=== PATIENT | male | born 1955 | race Caucasian/White ===

== ENCOUNTER → 2018-12-30 08:05 | Outpatient (POV) | payer MEDICARE, OTHER, SELFPAY | PROVIDERS: Visit Provider Dermatology | DX: Z00.00 Encounter for general adult medical examination without abnormal findings (principal) ==

== ENCOUNTER → 2019-01-20 08:54 | Outpatient (POV) | payer MEDICARE, OTHER, SELFPAY | PROVIDERS: Visit Provider Dermatology | DX: Z00.00 Encounter for general adult medical examination without abnormal findings (principal) ==

== ENCOUNTER → 2019-01-21 08:43 | Outpatient (CLI) | payer OTHER, SELFPAY ==
--- NOTE | 2019-01-21 08:48 | US_ITS ---
US aorta HISTORY: Screening for aortic aneurysm ITS.REASON: AAA COMPARISON: FINDINGS: No evidence of aortic aneurysm. The proximal common iliacs are unremarkable. IMPRESSION: No evidence of abdominal aortic aneurysm
== END ==
PROVIDERS: PCP Family Medicine; Visit Provider Family Medicine
DX: Z13.6 Encounter for screening for cardiovascular disorders (principal); Z87.891 Personal history of nicotine dependence
CPT/HCPCS: 76770

== ENCOUNTER → 2019-01-27 08:46 | Outpatient (POV) | payer MEDICARE, OTHER, SELFPAY | PROVIDERS: Visit Provider Dermatology | DX: Z00.00 Encounter for general adult medical examination without abnormal findings (principal) ==

== ENCOUNTER 2019-06-26 12:12 | Observation (INO) ==
--- NOTE | 2019-06-26 12:41 | Emergency Department Note ---
ED Disposition Clinical Impression: Encephalopathy Hypertension Qualifiers: Hypertension type: unspecified Qualified Code(s): I10 - Essential (primary) hypertension Disposition: Admitted as Observation Condition on Discharge: Good Instructions: DI for Altered Mental Status Referrals: Sabas Kay MD [Primary Care Provider] - - Critical Care Critical Care Time: No Attestation: On , the high probability of a clinically significant, sudden or life threatening deterioration of the following system(s) required my full and direct attention, intervention and personal management. The time I documented below is in addition to time spent performing reported procedures but includes the following listed in this critical care notation. Medical Decision Making - Medical Records Medical records reviewed: Yes: I reviewed the patient's medical records. - Pérez Inquiry Pt receiving controlled substance: No Vital Signs: 06/26/19 12:25 06/26/19 12:56 06/26/19 12:57 Temperature 97.8 F Temperature Source Oral Pulse Rate [Right Brachial] 87 64 Respiratory Rate 18 20 Blood Pressure 174/118 H Blood Pressure [Right Arm] 199/101 H 168/95 H Blood Pressure Mean [Right Arm] 133 119 Blood Pressure Source [Right Arm] Automatic Cuff Automatic Cuff Blood Pressure Position [Right Arm] Sitting Supine 02 Sat by Pulse Oximetry 100 100 Oxygen Delivery Method Room Air Room Air 06/26/19 13:42 06/26/19 14:09 06/26/19 14:37 Temperature Temperature Source Pulse Rate [Right Brachial] 69 66 61 Respiratory Rate Blood Pressure 154/98 H Blood Pressure [Right Arm] 153/91 H 144/83 H 131/85 Blood Pressure Mean [Right Arm] 111 103 100 Blood Pressure Source [Right Arm] Automatic Cuff Automatic Cuff Blood Pressure Position [Right Arm] Sitting Sitting 02 Sat by Pulse Oximetry 99 98 98 Oxygen Delivery Method - Lab Data Lab results reviewed: Yes: I reviewed the patient's lab results. Lab Results 06/26/19 12:30: WBC 7.1, RBC 5.28, Hgb 16.7, Hct 51.5, MCV 97.5 H, MCH 31.6 H, MCHC 32.4, RDW 14.0, Plt Count 219, MPV 8.6, Neut % (Auto) 50.2, Lymph % (Auto) 35.2, [place] % (Auto) 8.2, Eos % (Auto) 5.7, Baso % (Auto) 0.6, Neut # (Auto) 3.5, Lymph # (Auto) 2.5, [place] # (Auto) 0.6, Eos # (Auto) 0.4, Baso # (Auto) 0.0 06/26/19 12:30: Sodium 139, Potassium 3.9, Chloride 101, Carbon Dioxide 27, Anion Gap 14.9, BUN 11, Creatinine 0.73, Estimated Creat Clear 83, Estimated GFR 108, Est GFR ( Amer) 130, Glucose 104, Calcium 10.0, Total Bilirubin 0.6, AST 43 H, ALT 51, Alkaline Phosphatase 60, Troponin I < 0.02, Total Protein 7.6, Albumin 4.2, Globulin 3.4 H, Albumin/Globulin Ratio 1.2 Result diagrams: 06/26/19 12:30 06/26/19 12:30 Orders (Tests/Meds): ED MEDICATIONS Discontinued Medications Generic Name Dose Route Start Last Admin Trade Name Freq PRN Reason Stop Dose Admin Acetaminophen 1,000 mg 06/26/19 12:37 06/26/19 12:56 Tylenol 500mg Tablet PO 06/26/19 12:38 1,000 mg ONCE ONE Administration Labetalol HCl 10 mg 06/26/19 12:38 06/26/19 12:56 Labetalol Hcl 20mg/4ml Syringe IV 06/26/19 12:39 10 mg ONCE ONE Administration Labetalol HCl 10 mg 06/26/19 13:10 06/26/19 13:42 Labetalol Hcl 20mg/4ml Syringe IV 06/26/19 13:11 10 mg ONCE ONE Administration Ondansetron HCl 4 mg 06/26/19 12:55 06/26/19 12:56 Zofran 4mg/2ml Vial IV 06/26/19 12:56 4 mg ONCE ONE Administration ORDERS Category Date Time Status Chest XR -- portable [XR chest portable] Stat Exams 06/26/19 12:20 Taken - CT Data CT Scan: Head Time Received: 14:[address] Reviewed: Yes: I have viewed the radiologist's interpretation Preliminary Findings: Normal/NAD - ECG Data Tracing #2 I reviewed this ECG and interpreted as documented below: Normal Sinus Rhythm: Yes (no stemi) Medical Decision Narrative: admit d/w Dr Kay for hypertensive encephalopathy General Adult HPI - General Chief complaint: Altered Mental Status Stated complaint: memory fading b/p spiking Time Seen by Provider: 06/26/19 12:38 Mode of Arrival: Carried Limitations: No Limitations Description of Symptoms (Recalled from ER Triage Doc. by RN): PT DESCRIBES SUDDEN ONSET OF SHELTON AND MEMORY LOSS. WHEN DISCUSSING, PT WAS UNABLE TO TELL WHAT YEAR IT WAS, BUT IDENTIFIED LOCATION, SELF, AND DAY OF THE WEEK WITH EASE. VERY ANXIOUS AND NERVOUS. BP ELEVATED. AT BEDSIDE AND IS AGITATED AND ANXIOUS AND APPEARS TO BE ESCALATING THE PATIENT'S ANXIETY AT CURRENT. - History of Present Illness HPI narrative: 2hr hx elevated blood pressure and headache and forgetful, no injury, +nausea, no fever, no visual disturbance - Related Data Home Medications Medication Instructions Recorded Confirmed No Known Home Medications 11/11/18 12/12/18 Allergies Allergy/AdvReac Type Severity Reaction Status Date / Time prochlorperazine Allergy Verified 12/12/18 11:58 [From Compazine] [facility] History - Hepatitis A Screen Drug use history?: No High risk sexual behaviors?: No History of sexually transmitted infection?: No Currently employed?: No Childcare worker?: No Do you have indoor plumbing?: Yes Do you have electricity?: Yes Attestation statement:: This patient has been screened for Hepatitis A risk factors. Medical History: Denies:: Diabetes Mellitus Type 1, Diabetes Mellitus Type 2, Internal Pacemaker, Lung Disease, Seizures Other Surgeries: No: Pacemaker ROS Obtained: Yes Systems reviewed as appropriate & no additional complaints - Constitutional Constitutional: Denies fever(s) - Eyes Eyes: Denies change in vision - ENT Ears, Nose, Mouth, and Throat: Reports headache(s) - Cardiovascular Cardiovascular: Denies chest pain - Respiratory Respiratory: No dyspnea - Gastrointestinal Gastrointestingal: Denies: vomiting - Musculoskeletal Musculoskeletal: Denies neck pain - Integumentary/Breasts Skin/Breast: Denies rash - Neurologic Neurologic: Reports confusion, Denies focal weakness Physical Exam - General General appearance: alert, in no apparent distress - Head Head exam: normocephalic - Eye Eye exam: Present: PERRL, EOMI - ENT ENT exam: Present: mucous membranes moist - Neck Neck exam: Present: normal inspection - Chest Chest inspection: Present: normal inspection - Respiratory Respiratory exam: Present: normal lung sounds bilaterally - Cardiovascular Cardiovascular exam: Present: regular rate, normal rhythm - Abdominal Exam Abdominal exam: Present: soft. Absent: tenderness - Extremities Exam Extremities exam: Present: full ROM - Back Exam Back exam: Absent: vertebral tenderness - Neurological Exam Neurological exam: Present: alert, oriented X3 - Psychiatric Psychiatric exam: Present: normal affect, normal mood - Skin Skin exam: Present: warm, dry
[2019-06-26 12:53] LABS: Basophils % 0.6 % (0.1-2.0); Eosinophils # 0.4 K/mm3 (0.0-0.4); Eosinophils % 5.7 % (0.1-12.0); Hematocrit 51.5 % (42.0-52.0); Hemoglobin 16.7 g/dL (14.1-18.0); Lymphocytes # 2.5 K/mm3 (0.7-4.5); Lymphocytes % 35.2 % (10-50); Mean Corpuscular HGB Conc 32.4 g/dL (31.8-35.4); Mean Corpuscular Volume 97.5 fl (80-94); Mean Platelet Volume 8.6 fl (7.4-10.4); Monocytes # 0.6 K/mm3 (0.1-1.0); Monocytes % 8.2 % (1.7-9.3); Neutrophils # 3.5 K/mm3 (1.8-7.8); Neutrophils % 50.2 % (37.0-80.0); Platelet Count 219 K/mm3 (142-424); Red Blood Count 5.28 M/mm3 (4.60-6.20); White Blood Count 7.1 K/mm3 (4.8-10.8)
[2019-06-26 13:17] LABS: Alanine Aminotransferase 51 U/L (12-78); Albumin Level 4.2 gm/dL (3.4-5.0); Albumin/Globulin Ratio 1.2 (1.1-1.8); Alkaline Phosphatase 60 U/L (46-116); Anion Gap 14.9 mEq/L (5-15); Aspartate Amino Transferase 43 U/L (15-37); Bilirubin,Total 0.6 mg/dL (0.2-1.0); Blood Urea Nitrogen 11 mg/dL (7-18); Carbon Dioxide 27 mmol/L (21.0-32.0); Chloride 101 mmol/L (98-107); Globulin 3.4 gm/dl (1.3-3.2); Glucose 104 mg/dL (74-106); Sodium 139 mmol/L (136-145); Total Protein,Serum 7.6 gm/dL (6.4-8.2)
--- NOTE | 2019-06-26 16:50 | History & Physical Report ---
*Admission Date: 06/26/19 *Chief complaint: Confusion *History of present illness: 64-year-old male with no significant medical history presented to the emergency department after onset of memory loss at home. Patient awoke this morning in his normal state of health. He was preparing for work and was logging on his computer when he noticed he had trouble remembering his password. He decided to change activities and went on and showered. After getting out of the shower and speaking with his she noticed he did not seem himself and he had trouble remembering what year it was. He also endorsed a headache at the base of his skull and his also believes he had some difficulty swallowing. Upon checking his blood pressure at home his systolic was in the 220s and decision was made to come to the emergency department. In the emergency department patient's blood pressure was elevated over 200 systolic. Patient continued to have difficulty recalling the year but was otherwise oriented. He was given 2 doses of labetalol 10 mg IV and blood pressure responded appropriately. He continued to endorse "feeling off". Patient was admitted for observation. [facility] History I have reviewed the patient's past medical history: Yes Medical History: Denies:: Cancer, Diabetes Mellitus Type 1, Diabetes Mellitus Type 2, Internal Pacemaker, Lung Disease, MRSA, Seizures *Have you ever received a pneumonia vaccine?: No *Have you received a flu vaccine this season?: No Other Medical History: Reports: Arthritis Other Surgeries: No: Pacemaker Amputation: No Fractures: No - *Social History Educational Level: Attended College Smoking Status: Former smoker Smoking End Date: 09/30/1989 Alcohol Intake: never Substance Use Type: marijuana Last Used Substance: days (ago) *Occupational Status:: employed Housing: house Household Members: spouse *Travel in the last 8 weeks: None Family Hx:: Cancer, Coronary Artery Disease, Diabetes, Heart Attack, Hyperlipidemia, Hypertension, Substance abuse Review of Systems - Review of Systems Review of systems:: pertinent systems reviewed and negative unless documented below - Eyes Denies blind spots, Denies blurry vision, Denies change in vision - ENT Denies abnormal hearing - *Cardiovascular Denies chest pain - *Respiratory Denies cough, Denies shortness of breath - *Musculoskeletal Denies abnormal walking - *Neurologic Reports confusion, Reports headache(s), Reports memory loss, Reports tingling/numbness/burning sensations, Reports radiating pain, Denies abnormal walking, Denies abnormal hearing, Denies abnormal movements, Denies abnormal speech, Denies unsteadiness, Denies localized weakness, Denies lack of coordination, Denies loss of vision, Denies numbness, Denies sensory deficit, Denies fainting, Denies tremor(s), Denies weakness Meds Home Medications Medication Instructions Recorded Confirmed Type Polyethylene Glycol 3350 [Miralax 17 gm PO DAILY 06/26/19 06/26/19 History 17gm Packet] Allergies Allergy/AdvReac Type Severity Reaction Status Date / Time prochlorperazine Allergy Verified 12/12/18 11:58 [From Compazine] Exam Vital signs and Labs for Last 24 Hours: Temp Pulse Resp BP Pulse Ox 98.2 F 62 22 137/83 97 06/26/19 15:20 06/26/19 15:20 06/26/19 15:20 06/26/19 15:20 06/26/19 15:17 Laboratory Results - last 24 hr 06/26/19 12:30: WBC 7.1, RBC 5.28, Hgb 16.7, Hct 51.5, MCV 97.5 H, MCH 31.6 H, MCHC 32.4, RDW 14.0, Plt Count 219, MPV 8.6, Neut % (Auto) 50.2, Lymph % (Auto) 35.2, [place] % (Auto) 8.2, Eos % (Auto) 5.7, Baso % (Auto) 0.6, Neut # (Auto) 3.5, Lymph # (Auto) 2.5, [place] # (Auto) 0.6, Eos # (Auto) 0.4, Baso # (Auto) 0.0 06/26/19 12:30: Sodium 139, Potassium 3.9, Chloride 101, Carbon Dioxide 27, Anion Gap 14.9, BUN 11, Creatinine 0.73, Estimated Creat Clear 83, Estimated GFR 108, Est GFR ( Amer) 130, Glucose 104, Calcium 10.0, Total Bilirubin 0.6, AST 43 H, ALT 51, Alkaline Phosphatase 60, Troponin I < 0.02, Total Protein 7.6, Albumin 4.2, Globulin 3.4 H, Albumin/Globulin Ratio 1.2 I & O for Last 24 hours: Intake & Output 06/24/19 06/25/19 06/26/19 06/27/19 11:59 11:59 11:59 11:59 Intake Total 1000 / 1000 Balance 1000 / 1000 Weight 163 lb 3 oz - Constitutional no acute distress - *Routine HEENT Exam Head: Present: normocephalic Eye: Present: EOMI, normal accommodation ENT: Present: mucous membranes moist - *Routine Neck Exam Present: supple. Absent: carotid bruit - *Routine Respiratory Exam Present: CTA bilaterally. Absent: rales, respiratory distress, wheezes - *Routine Cardiovascular Exam Present: RRR, Normal S1, Normal S2. Absent: murmur - *Routine Neurological Exam Present: moving all extremities, normal tone, vision grossly intact, hearing grossly intact, normal speech. Absent: sensory deficit, motor deficit, altered mental status, hemineglect, fasciculations, facial asymmetry, tremors, asterixis Symmetric upper and lower extremity strength in all muscle groups - Detailed Neurological Exam Cranial nerves: Normal CN III, Normal CN IV, Normal CN V, Normal CN , Normal CN VII, Normal CN VIII, Normal CN IX, Normal CN X, Normal CN XI, Normal CN XII Speech: Absent: expressive aphasia, receptive aphasia, total aphasia, slurred, garbled, stutter, speech apraxia Neuro motor strength exam: RUE 5/5 Cerebellar function: Normal Romberg Sensory: Normal position sense DTR: 1+: brachioradialis (L), brachioradialis (R), 2+: achilles tendon (L), achilles tendon (R), biceps (L), biceps (R), patellar (L), patellar (R) Assessment and Plan (1) Hypertensive encephalopathy syndrome Current visit: Yes Status: Acute Category: Medical Code(s): I67.4 - Hypertensive encephalopathy - Assessment and plan all Dx Assessment and Plan for all problems:: Pressure has improved. Start lisinopril 10 mg twice daily. Urinalysis will be ordered to complete work-up. Patient will be observed overnight. Clonidine has been ordered as needed for systolic blood pressure greater than 170.
[2019-06-27 01:22] LABS: Microscopic, Urine URINE MICROSCOPIC (MICROSCOPIC)
[2019-06-27 01:57] LABS: Appearance,Urine CLEAR (Clear); Bilirubin,Urine Negative (Negative); Blood, Urine Negative (Negative); Color,Urine YELLOW (Yellow); Glucose,Urine (UA) Negative (Negative); Ketones,Urine Negative (Negative); Leukocyte Esterase,Urine Negative (Negative); PH,Urine 6.5 (5.0-8.5); Protein,Urine Negative (Negative); Specific Gravity, Urine 1.015 (1.005-1.030)
[2019-06-27 01:58] LABS: Bacteria,Urine Trace /lpf; Squamous Epithelial Cell,Urine Occasional #/hpf (0-5); WBC,Urine Occasional #/hpf (0-3)
--- NOTE | 2019-06-27 08:02 | Discharge Summary ---
General - General Admission date:: 06/26/19 Discharge date: 06/27/19 HPI HPI: 64-year-old male with no significant medical history presented to the emergency department after onset of memory loss at home. Patient awoke this morning in his normal state of health. He was preparing for work and was logging on his computer when he noticed he had trouble remembering his password. He decided to change activities and went on and showered. After getting out of the shower and speaking with his she noticed he did not seem himself and he had trouble remembering what year it was. He also endorsed a headache at the base of his skull and his also believes he had some difficulty swallowing. Upon checking his blood pressure at home his systolic was in the 220s and decision was made to come to the emergency department. In the emergency department patient's blood pressure was elevated over 200 systolic. Patient continued to have difficulty recalling the year but was otherwise oriented. He was given 2 doses of labetalol 10 mg IV and blood pressure responded appropriately. He continued to endorse "feeling off". Patient was admitted for observation. Hospital Course Hospital Course: Patient was admitted for observation. Patient's blood pressure never sherwin above 150 after admission. He was started on lisinopril 10 mg twice daily. His neurologic exam was normal and remained that way. On the patient was discharged home. He will begin lisinopril 10 mg twice daily. He will follow-up in the office on July 03 at 8 AM. Objective Vital signs: Temp Pulse Resp BP Pulse Ox 98 F 60 18 150/88 H 100 06/27/19 00:00 06/27/19 00:00 06/27/19 00:00 06/27/19 00:00 06/27/19 00:00 no acute distress - *Routine Neurological Exam Present: alert, oriented X3, CN II-XII intact, sensory deficit, motor deficit, normal reflexes, moving all extremities, normal tone Results Labs on day of discharge: Labs from last 24 hours 06/26/19 06/26/19 06/26/19 12:30 12:30 01:06 WBC 7.1 RBC 5.28 Hgb 16.7 Hct 51.5 MCV 97.5 H MCH 31.6 H MCHC 32.4 RDW 14.0 Plt Count 219 MPV 8.6 Neut % (Auto) 50.2 Lymph % (Auto) 35.2 Bertie % (Auto) 8.2 Eos % (Auto) 5.7 Baso % (Auto) 0.6 Neut # (Auto) 3.5 Lymph # (Auto) 2.5 Bertie # (Auto) 0.6 Eos # (Auto) 0.4 Baso # (Auto) 0.0 Sodium 139 Potassium 3.9 Chloride 101 Carbon Dioxide 27 Anion Gap 14.9 BUN 11 Creatinine 0.73 Estimated Creat Clear 83 Estimated GFR 108 Est GFR ( Amer) 130 Glucose 104 Calcium 10.0 Total Bilirubin 0.6 AST 43 H ALT 51 Alkaline Phosphatase 60 Troponin I < 0.02 Total Protein 7.6 Albumin 4.2 Globulin 3.4 H Albumin/Globulin Ratio 1.2 Urine Color Yellow Urine Appearance Clear Urine pH 6.5 Ur Specific [place] 1.015 Urine Protein Negative Urine Glucose (UA) Negative Urine Ketones Negative Urine Blood Negative Urine Nitrate Negative Urine Bilirubin Negative Urine Urobilinogen 1.0 Ur Leukocyte Esterase Negative Urine WBC Occasional Ur Squamous Epith Cells Occasional Urine Bacteria Trace DS: Diagnosis - Discharge Diagnosis (1) Hypertensive encephalopathy syndrome Status: Acute Discharge Plan - Patient Discharge Instructions ACTIVITY: Continue current activity DIET: continue same diet Patient Instructions: High Blood Pressure, Encephalopathy, DI for Encephalopathy - Follow up Plan Follow up with: Sabas Kay MD [Primary Care Provider] - Disposition: Home, Self-[facility] Medications: Home Medications Medication Instructions Recorded Confirmed Type Polyethylene Glycol 3350 [Miralax 17 gm PO DAILY 06/26/19 06/26/19 History 17gm Packet] Lisinopril [Lisinopril 10mg Tab] 10 mg PO BID #60 tab 06/27/19 Rx Prescriptions/Medication Reconciliation: New Lisinopril [Lisinopril 10mg Tab] 10 mg PO BID #60 tab Continued Polyethylene Glycol 3350 [Miralax 17gm Packet] 17 gm PO DAILY - Problem Reconciliation Problems Reviewed?: Yes
--- NOTE | 2019-06-28 18:06 | Electrocardiograph Report ---
APPROVED REPORT Exam: Resting ECG HR:67 bpm ECG Measurements Heart Rate 67 AXES TX 164 P 75 QRSd 108 QRS 62 QT 394 T68 QTc 416 <Conclusion> Normal sinus rhythm Incomplete RBBB Otherwise a Normal EKG Electronically signed by : Hadley Clarke, 06/28/2019 18:05:48
== END 2019-06-27 09:55 | disposition home or self-care (01) ==
LOC: ER 12:12 → 2ND 12:12
PROVIDERS: ADMIT Family Medicine; ATTEND Family Medicine
DX: I67.4 Hypertensive encephalopathy
CPT/HCPCS: 70450; 71010; 71045; 80053; 81001; 84484; 85025; 93005; 96374; 99284; G0378; J2405

== ENCOUNTER → 2019-10-09 14:37 | Outpatient (CLI) | payer OTHER, SELFPAY ==
--- NOTE | 2019-10-09 14:44 | XR_ITS ---
PROCEDURE: XR ANKLE WT BEARING RT MIN 3V CLINICAL INDICATION: foot pain COMPARISON: No exams were available for comparison FINDINGS: There are mild osteoarthritic changes of the right ankle at the talotibial region. There is generalized vascular calcification. No fracture or dislocation. No lytic or blastic change. IMPRESSION: Mild osteoarthritis Dictated by: Elmer Patino MD 10/09/2019 15:09 Electronically signed by Elmer Patino MD in [place] 10/09/2019 15:09
--- NOTE | 2019-10-09 14:44 | XR_ITS ---
PROCEDURE: XR FOOT WT BEARING RT 3V CLINICAL INDICATION: foot pain COMPARISON: XR FOOT WT BEARING LT 3V from 10/09/2019 FINDINGS: There are minimal osteoarthritic changes of the 1st metatarsophalangeal joint, talonavicular joint, and navicular cuneiform joint with borderline pes planus and a small accessory ossicle at the dorsal talonavicular region. There is a small calcaneal spur and there is calcification noted at the distal aspect of the Achilles tendon along with vascular calcifications.. There may be an extra ossicle or loose bony fragment as noted on the oblique view between the navicular and cuboid. IMPRESSION: Mild degenerative changes with possible loose body between the cuboid and navicular. CT may confirm Dictated by: Elmer Patino MD 10/09/2019 15:13 Electronically signed by Elmer Patino MD in [place] 10/09/2019 15:13
--- NOTE | 2019-10-09 14:44 | XR_ITS ---
PROCEDURE: XR FOOT WT BEARING LT 3V CLINICAL INDICATION: foot pain COMPARISON: No exams were available for comparison FINDINGS: No fracture or dislocation. No lytic or blastic change. There is normal mineralization. The joint spaces are well-preserved. No significant degenerative/arthritic changes. No erosive changes evident. Other findings: borderline pes planus IMPRESSION: No acute findings. Borderline pes planus Dictated by: Elmer Patino MD 10/09/2019 15:11 Electronically signed by Elmer Patino MD in [place] 10/09/2019 15:11
--- NOTE | 2019-10-09 14:44 | XR_ITS ---
PROCEDURE: XR ANKLE WT BEARING LT MIN 3V CLINICAL INDICATION: foot pain COMPARISON: No exams were available for comparison FINDINGS: No fracture, dislocation, lytic change, or blastic change evident. No significant degenerative change. There is generalized vascular calcification. There is mildly prominent posterior talar process. IMPRESSION: No acute findings. Dictated by: Elmer Patino MD 10/09/2019 15:06 Electronically signed by Elmer Patino MD in [place] 10/09/2019 15:06
== END ==
PROVIDERS: PCP Family Medicine; Visit Provider Podiatrist
DX: M79.672 Pain in left foot (principal); M79.671 Pain in right foot; M25.572 Pain in left ankle and joints of left foot; M25.571 Pain in right ankle and joints of right foot
CPT/HCPCS: 73610; 73630

== ENCOUNTER → 2020-02-02 16:45 | Outpatient (CLI) | payer MEDICARE, OTHER, SELFPAY ==
--- NOTE | 2020-02-02 16:57 | XR_ITS ---
PROCEDURE: XR CHEST 2V CLINICAL HISTORY: SHORTNESS OF BREATH History of smoking COMPARISON: XR CHEST PORTABLE from 06/26/2019 FINDINGS: The cardiomediastinal silhouette and pulmonary vascularity are within normal limits. There is hyperinflation with attenuation of the peripheral pulmonary vessels consistent with COPD. There is prominence of the anterior clear space. No lobar consolidation or collapse. Degenerative changes thoracic spine IMPRESSION: COPD. No acute finding Dictated by: Elmer Patino MD 02/02/2020 17:26 Electronically signed by Elmer Patino MD in [place] 02/02/2020 17:26
== END ==
PROVIDERS: PCP Family Medicine; Visit Provider Family Medicine
DX: R06.02 Shortness of breath (principal)
CPT/HCPCS: 71046

== ENCOUNTER → 2020-02-15 14:33 | Outpatient (CLI) | payer MEDICARE, OTHER, SELFPAY ==
[2020-02-15 15:15] VITALS: PULSE 71; PULSE 74
== END ==
PROVIDERS: PCP Family Medicine; Visit Provider Family Medicine
DX: R06.02 Shortness of breath (principal)
CPT/HCPCS: 94060; 94640

== ENCOUNTER → 2020-03-23 06:32 | Outpatient (CLI) | payer MEDICARE, OTHER, SELFPAY ==
--- NOTE | 2020-03-23 | CA_ITS ---
APPROVED REPORT Exam: Exercise Treadmill Technologist: Tatianna Rueda Ht: 5 ft 10 in Wt: 160 lbs BSA: 1.90 m2 HR: 69 bpm BP: 136/88 mmHg Indications: Dyspnea on Exertion, Medical History Medications: Omeprazole,,,,, Losartan,,,,, Stress Test Details Test: Benson HR Resting HR: 69 bpm Max Heart Rate (APMHR): 154 bpm Max HR Achieved: 145 bpm Target HR (85% APMHR): 130 bpm % of APMHR: 94 Recovery HR: 75 bpm BP Resting BP: 136.0/88.0 mmHg Max BP: 206.0/106.0 mmHg Recovery BP: 147.0/91.0 mmHg ECG Clinical Exercise duration: 10:07 min Highest Stage Achieved: Exercise capacity: 12.8 METs Stress ECG Conclusion Resting ECG: Normal sinus rhythm, PVCs, right axis Patient exercised 10:07 on Benson Protocol. Test stopped due to shortness of air, fatigue. Symptoms: No change in pretest chest pain with exercise. Arrhythmias/Ectopy: Occasional PAC. Occasional PVC. One ventricular couplet. ST-T Changes: Allowing for motion artifact, the ST response to exercise is normal. Conclusion: No chest pain or ischemic EKG changes. Abnormal increase in diastolic blood pressure with exercise. Myoview images reported separately. Test Summary REST . . . . . . . Sitting REST . . . . . . . Standing REST 05:22 0.0 0.0 69 . 136/ 88 . . Stage 1 01:00 10.0 1.7 84 . . . . Stage 1 02:00 10.0 1.7 89 . . . . Stage 1 03:00 10.0 1.7 88 . 158/ 86 . . Stage 2 01:00 12.0 2.5 99 . . . . Stage 2 02:00 12.0 2.5 99 . . . . Stage 2 03:00 12.0 2.5 105 . 172/ 90 . . Stage 3 01:00 14.0 3.4 116 . . . . Stage 3 02:00 14.0 3.4 122 . . . . Stage 3 . . . . . . . Myoview Injected Stage 3 03:00 14.0 3.4 127 . 190/ 95 . . Stage 4 01:00 16.0 4.2 140 . . . . Stage 4 01:07 16.0 4.2 141 . . . Stop exercise at 10:07 RECOVERY 01:00 0.0 0.0 115 . 206/106 . . RECOVERY 02:00 0.0 0.0 106 . 206/106 . . RECOVERY 03:00 0.0 0.0 86 . 172/ 99 . . RECOVERY 04:00 0.0 0.0 82 . 172/ 99 . . RECOVERY 05:00 0.0 0.0 80 . 172/ 99 . . RECOVERY 05:29 0.0 0.0 76 . 147/ 91 . . Electronically signed by : Art Kilpatrick, 03/24/2020 10:41:17
--- NOTE | 2020-03-23 06:34 | NM_ITS ---
APPROVED REPORT Exam: Nuclear Stress Test Indication: SOB, HTN, FORMER TOB USER, FM HX Patient Location: Outpatient Stress Tech: Tatianna Rueda [place] Tech:Adore Zayas, ARRT, RT (R)(N) Ht: 5 ft 10 in Wt: 160 lbs HR: 69 bpm BP: 136/88 mmHg BSA: 1.90 m2 BMI: 22.9 History: SOB, HTN, FORMER TOB USER, FM HX Procedure: Patient exercised on Benson protocol 10:07 minutes and sec, resting heart rate 69 bpm, resting blood pressure 136/88 mmHg, with exercise maximum heart rate achived was 141 bpm which is Greater than 85 % of the maximum predicted heart rate and blood pressure was 206/106 mmHg. Test was stopped due to SOA, FATIGUE. Patient has Good exercise capacity, achieved 12.8 METs of workload on treadmill, the blood pressure response to exercise was Hypertensive. Electrocardiogram Resting electrocardiogram showed sinus rhythm, with exercise there is less than 1.[address] segment depression noted from the baseline EKG. The EKG portion of the exercise Myoview is negative for ischemia. Cardiac Stress and Resting SPECT Images: Cardiac Stress and Resting SPECT images were obtained using technetium 99m Myoview 32.3 mCi stress and 10.08 mCi at rest. Gated SPECT for the analysis of segmental wall motion and calculation of the ejection fraction also done. Cardiac stress and rest SPECT images show a fixed defect in the inferior wall with normal contractility and the gated SPECT is likely secondary to soft tissue attenuation, no reversible ischemia seen. Computer derived ejection fraction is 53% with no regional wall motion abnormality, right ventricle is normal size and contractility. Conclusion: 1. The EKG portion of the exercise Myoview is negative for ischemia, patient has good exercise capacity achieved 12.8 mets of workload on treadmill, the blood pressure response to exercise was hypertensive, there was no exercise-induced chest discomfort, test was stopped due to shortness of breath. 2. No scintigraphic evidence of reversible ischemia seen, computer derived ejection fraction 53% with no regional wall motion abnormality, right ventricle is normal size and contractility. 3. Likely normal exercise Myoview study. Electronically signed by : Art Kilpatrick, 03/24/2020 10:44:14
--- NOTE | 2020-03-23 07:24 | HMH.ITSHM ---
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 []OMEPRAZOLE LORSARTAN
== END ==
PROVIDERS: PCP Family Medicine; Visit Provider Family Medicine
DX: R06.02 Shortness of breath (principal); R06.00 Dyspnea, unspecified; I10 Essential (primary) hypertension
CPT/HCPCS: 78452; 93017; A9502

== ENCOUNTER → 2022-03-20 15:59 | Outpatient (POV) | payer MEDICARE, OTHER, SELFPAY | PROVIDERS: Visit Provider Dermatology | DX: Z00.00 Encounter for general adult medical examination without abnormal findings (principal) ==

== ENCOUNTER → 2022-09-04 14:07 | Outpatient (POV) | payer MEDICARE, OTHER, SELFPAY | PROVIDERS: Visit Provider Dermatology | DX: Z00.00 Encounter for general adult medical examination without abnormal findings (principal) ==

== ENCOUNTER → 2023-05-02 15:45 | Outpatient (CLI) | payer MEDICARE, OTHER, SELFPAY ==
--- NOTE | 2023-05-02 15:50 | XR_ITS ---
FINAL REPORT CLINICAL HISTORY: . Area of swelling left distal thumb. FINDINGS: Left hand Three views were obtained. There is no acute fracture or dislocation. There are mild degenerative changes. No soft tissue abnormality is identified. IMPRESSION: No acute process. Reviewed, Interpreted and Dictated by Chapin Chan III, MD Transcribed by Patience Joyce Authenticated and [facility]
[2023-05-02 16:23] LABS: Basophils % 0.6 % (0.1-2.0); Eosinophils # 0.3 K/mm3 (0.0-0.4); Eosinophils % 4.5 % (0.1-12.0); Hematocrit 47.9 % (42.0-52.0); Hemoglobin 15.7 g/dL (14.1-18.0); Lymphocytes % 42.2 % (10-50); Mean Corpuscular HGB Conc 32.9 g/dL (31.8-35.4); Mean Corpuscular Hemoglobin 30.8 pg (27.0-31.2); Mean Corpuscular Volume 93.6 fl (80-94); Mean Platelet Volume 9.5 fl (7.4-10.4); Monocytes # 0.5 K/mm3 (0.1-1.0); Monocytes % 6.8 % (1.7-9.3); Neutrophils # 3.3 K/mm3 (1.8-7.8); Platelet Count 193 K/mm3 (142-424); Red Blood Count 5.11 M/mm3 (4.60-6.20); Red Cell Distribution Width 13.5 % (11.5-17.5); White Blood Count 7.1 K/mm3 (4.8-10.8)
[2023-05-02 16:50] LABS: Alanine Aminotransferase 43 U/L (12-78); Albumin Level 4.3 g/dl (3.5-5.0); Albumin/Globulin Ratio 1.7 (1.1-1.8); Alkaline Phosphatase 54 U/L (38-126); Anion Gap 12.2 mEq/L (5-15); Aspartate Amino Transferase 39 U/L (17-59); Bilirubin,Total 0.6 mg/dl (0.2-1.3); Blood Urea Nitrogen 12 mg/dl (9-20); Calcium 9.2 mg/dl (8.4-10.2); Carbon Dioxide 26 mmol/L (22.0-30.0); Chloride 107 mmol/L (98-107); Chol/HDL Ratio 3.6 (1-3.5); Cholesterol 147 mg/dl (140-200); Estimated Glomerular Filt Rate 134 ml/min (>60); GFR (African American) 162 ML/MIN (>60); Globulin 2.5 g/dL (1.3-3.2); Glucose 85 mg/dl (74-100); HDL Cholesterol 41 mg/dl (40-60); Potassium 4.2 mmoL/L (3.5-5.1); Sodium 141 mmol/L (136-145); Total Protein,Serum 6.8 g/dl (6.3-8.2); Triglycerides 160 mg/dl (30-150); VLDL Cholesterol 32 mg/dL (0-40)
[2023-05-02 17:08] LABS: 25-OH Vitamin D, Total 30.9 ng/mL (30-100)
[2023-05-02 17:09] LABS: Direct LDL Cholesterol 69.96 mg/dL (100-129)
[2023-05-02 17:22] LABS: Prostate Specific Ag Screen 6.7 ng/ml (0.0-4.0); Thyroid Stimulating Hormone 3.33 uIU/mL (0.465-4.68)
[2023-05-06 15:09] LABS: HBsAg Screen Negative (Negative); HCV Ab Reactive (Non Reactive); Hep A Ab, IGM Negative (Negative); Hep B Core Ab, IgM Negative (Negative)
== END ==
LOC: LAB 15:47
PROVIDERS: PCP Family Medicine; Visit Provider Nurse Practitioner Family
DX: R22.32 Localized swelling, mass and lump, left upper limb (principal); I10 Essential (primary) hypertension; R53.83 Other fatigue; G93.40 Encephalopathy, unspecified; Z12.5 Encounter for screening for malignant neoplasm of prostate; E55.9 Vitamin D deficiency, unspecified
CPT/HCPCS: 36415; 73130; 80053; 80061; 80074; 82306; 84443; 85025; G0103

== ENCOUNTER 2023-06-09 09:21 | Emergency (ER) | payer MEDICARE, OTHER, SELFPAY ==
[2023-06-09 09:35] VITALS: BP 155/89; PULSE 59; RESP 18; TEMP 36.8; O2SAT 99; BMI 23.6
--- NOTE | 2023-06-09 10:01 | EXP.UTC ---
Discharge Plan Disposition Patient Disposition: Home, Self-Care Condition: Good Prescriptions Prescriptions: New triamcinolone acetonide 0.1 % cream 1 applic topical BID PRN (Reason: itching) Qty: 30 0RF diphenhydramine HCl [Diphenhydramine HCl] 25 mg capsule 25 mg PO Q6HP PRN (Reason: Itching) Qty: 30 0RF methylprednisolone 4 mg Tablets,Dose Pack 4 mg PO DIRECTED Qty: 21 0RF No Action lisinopril 20 mg tablet 20 mg PO DAILY Referrals Follow up/Referrals: Thiago Gregory APRN [Primary Care Provider] - See instructions Activity Restrictions/Add. Instructions Additional Instructions/Restrictions: Try to identify and avoid contact with the offending substance. Don't start the oral steroids until tomorrow. The diphenhydramine (benedryl) will make you drowsy, so don't drive or operate heavy machinery after taking it. Don't put the topical steroids (triamcinolone) on your face or your groin. Follow up with your regular doctor. GO TO THE ER FOR ANY WORSENING SYMPTOMS OR CONCERNS Clinical Impressions Clinical Impression: Contact dermatitis, Poison rashida dermatitis Instructions Patient Instructions: Contact Dermatitis, DI for Contact Dermatitis, Triamcinolone Topical, Methylprednisolone, Methylprednisolone Injection Discharge ED Provider: Costa Winters [facility] General Stated complaint: rash Mode of Arrival: Ambulatory Source of Information: Patient Limitations: No Limitations Time Seen by Provider: 06/09/23 10:01 Description of Symptoms (Recalled from Triage Doc. by RN): Pt has rahs on hands and eyes. He was pulling weeds yesterday. HEENT Symptoms (Recalled from RN notes): No Resp Symptoms (Recalled from RN notes): No Skin Symptoms (Recalled from RN notes): Yes MS Symptoms (Recalled from RN notes): No Functional Status (Recalled from RN notes): n/a History of Present Illness Provider Complaint: He states that he has an itchy rash on both his hands and around his eyes. He was exposed to poison rashida yesterday. Related Data Home Medications Medication Instructions Recorded Confirmed lisinopril 20 mg tablet 20 mg PO DAILY htn 10/20/19 06/09/23 Previous Rx's Medication Instructions Recorded diphenhydramine HCl 25 mg capsule 25 mg PO Q6HP PRN Itching #30 caps 06/09/23 methylprednisolone 4 mg tablets in 4 mg PO DIRECTED #21 tabs 06/09/23 a dose pack triamcinolone acetonide 0.1 % 1 applic topical BID PRN itching 06/09/23 topical cream #30 grams Allergies Allergy/AdvReac Type Severity Reaction Status Date / Time prochlorperazine Allergy Verified 06/09/23 09:46 [From Compazine] Worker's Comp Is this a Worker's Comp case?: No [facility] Disclaimer: The information contained in this section may have been updated after the patient was seen, as this information can be updated by other users. Social History Smoking Status: Former smoker second hand exposure: Yes alcohol intake: never substance use type: marijuana current occupational status: employed Travel in the last 8 weeks: Inside the [place] household members: spouse housing: house current occupational exposures/hazards: No caffeine: Yes ROS Obtained: Yes All systems reviewed & no additional complaints except as documented Constitutional Constitutional: Denies chills and Denies fever(s) Eyes Eyes: Denies eye discharge ENT Ears, Nose, Mouth, and Throat: Denies dizziness, Denies otalgia and Denies sore throat Cardiovascular Cardiovascular: Denies chest pain Respiratory Respiratory: Denies shortness of breath, Denies chest congestion, Denies cough, Denies stridor and Denies wheezing Gastrointestinal Gastrointestingal: Denies nausea or vomiting Musculoskeletal Musculoskeletal: Reports system reviewed and no additional complaints, except as documented and Denies arthralgias Integumentary/Breasts Skin/Breast: Reports as
[2023-06-09 10:27] VITALS: BP 155/89; PULSE 59; RESP 18; TEMP 36.8; O2SAT 99
== END 2023-06-09 10:27 | disposition home or self-care (01) ==
PROVIDERS: Emergency Provider Nurse Practitioner Family; PCP Nurse Practitioner Family
DX: L23.7 Allergic contact dermatitis due to plants, except food (principal); Z87.891 Personal history of nicotine dependence; W60.XXXA Contact with nonvenomous plant thorns and spines and sharp leaves, initial encounter
CPT/HCPCS: 96372; 99204; 99212; G0463

== ENCOUNTER 2023-10-18 10:24 | Outpatient (CLI) | payer MEDICARE, OTHER, SELFPAY ==
[2023-10-18 10:55] LABS: Basophils # 0.1 K/mm3 (0-0.2); Basophils % 1.2 % (0.1-2.0); Eosinophils # 0.4 K/mm3 (0.0-0.4); Eosinophils % 4.7 % (0.1-12.0); Hematocrit 43.6 % (42.0-52.0); Hemoglobin 16.6 g/dL (14.1-18.0); Lymphocytes % 38.5 % (10-50); Mean Corpuscular HGB Conc 38.1 g/dL (31.8-35.4); Mean Corpuscular Hemoglobin 36.5 pg (27.0-31.2); Mean Corpuscular Volume 95.8 fl (80-94); Mean Platelet Volume 9.3 fl (7.4-10.4); Monocytes # 0.5 K/mm3 (0.1-1.0); Neutrophils # 3.9 K/mm3 (1.8-7.8); Neutrophils % 49.5 % (37.0-80.0); Platelet Count 196 K/mm3 (142-424); Red Blood Count 4.55 M/mm3 (4.60-6.20); Red Cell Distribution Width 13.4 % (11.5-17.5); White Blood Count 7.8 K/mm3 (4.8-10.8)
[2023-10-18 11:14] LABS: Chloride 103 mmol/L (98-107); Potassium 3.9 mmoL/L (3.5-5.1); Sodium 140 mmol/L (136-145)
[2023-10-18 11:16] LABS: Blood Urea Nitrogen 13 mg/dl (9-20); Estimated Glomerular Filt Rate 112 ml/min (>60); GFR (African American) 135 ML/MIN (>60)
[2023-10-18 11:17] LABS: Alanine Aminotransferase 19 U/L (12-78); Albumin Level 4.4 g/dl (3.5-5.0); Albumin/Globulin Ratio 1.6 (1.1-1.8); Alkaline Phosphatase 50 U/L (38-126); Anion Gap 10.9 mEq/L (5-15); Aspartate Amino Transferase 28 U/L (17-59); Bilirubin,Total 0.7 mg/dl (0.2-1.3); Carbon Dioxide 30 mmol/L (22.0-30.0); Globulin 2.7 g/dL (1.3-3.2); Total Protein,Serum 7.1 g/dl (6.3-8.2)
[2023-10-18 11:18] LABS: Calcium 9.5 mg/dl (8.4-10.2); Glucose 78 mg/dl (74-100)
[2023-10-23 09:05] LABS: Hepatitis C Antibody Reactive
== END 2023-10-18 23:59 ==
LOC: LAB 10:26
PROVIDERS: PCP Family Medicine; Visit Provider Nurse Practitioner Family
DX: B18.2 Chronic viral hepatitis C (principal)
CPT/HCPCS: 36415; 80053; 85025; 87380; 87522

== ENCOUNTER 2023-11-12 11:56 | Outpatient (CLI) | payer MEDICARE, OTHER, SELFPAY ==
--- NOTE | 2023-11-12 11:59 | XR_ITS ---
FINAL REPORT CLINICAL HISTORY: Bilat Shoulder pain left shoulder pain FINDINGS: Left shoulder Three views were obtained. There is no acute fracture or dislocation. There are presumed postoperative changes in the distal clavicle. There is elevation of the distal clavicle. There are moderate degenerative changes of the glenohumeral joint. No soft tissue abnormality is identified. IMPRESSION: Degenerative changes as detailed above. Reviewed, Interpreted and Dictated by Chapin Chan III, MD Transcribed by Patience Joyce Authenticated and [facility]
--- NOTE | 2023-11-12 11:59 | XR_ITS ---
FINAL REPORT CLINICAL HISTORY: Bilat shoulder pain right shoulder pain FINDINGS: Right shoulder Three views were obtained. There is no acute fracture or dislocation. There is moderate AC and mild glenohumeral joint degenerative change. No soft tissue abnormality is identified. IMPRESSION: Mild and moderate degenerative changes. Reviewed, Interpreted and Dictated by Chapin Chan III, MD Transcribed by Patience Joyce Authenticated and [facility]
== END 2023-11-12 23:59 ==
PROVIDERS: PCP Nurse Practitioner Family; Visit Provider Nurse Practitioner Family
DX: M25.511 Pain in right shoulder (principal); M25.512 Pain in left shoulder
CPT/HCPCS: 73030

== ENCOUNTER 2024-01-01 13:27 | Outpatient (CLI) | payer MEDICARE, OTHER, SELFPAY ==
[2024-01-01 15:08] LABS: Prostate Specific Ag, Diagnost 8.21 ng/ml (0.0-4.0)
== END 2024-01-01 23:59 ==
LOC: LAB 13:29
PROVIDERS: PCP Nurse Practitioner Family; Visit Provider Urology
DX: R97.20 Elevated prostate specific antigen [PSA] (principal)
CPT/HCPCS: 84153

== ENCOUNTER 2024-01-30 13:14 | Outpatient (CLI) | payer MEDICARE, OTHER, SELFPAY ==
[2024-01-30 14:11] LABS: Basophils # 0.1 K/mm3 (0-0.2); Basophils % 0.5 % (0.1-2.0); Eosinophils # 0.1 K/mm3 (0.0-0.4); Eosinophils % 0.7 % (0.1-12.0); Hematocrit 45.3 % (42.0-52.0); Hemoglobin 15.6 g/dL (14.1-18.0); Lymphocytes # 2.6 K/mm3 (0.7-4.5); Lymphocytes % 23.1 % (10-50); Mean Corpuscular HGB Conc 34.4 g/dL (31.8-35.4); Mean Corpuscular Hemoglobin 32.4 pg (27.0-31.2); Mean Corpuscular Volume 94.3 fl (80-94); Mean Platelet Volume 8.9 fl (7.4-10.4); Monocytes # 0.7 K/mm3 (0.1-1.0); Monocytes % 6.4 % (1.7-9.3); Neutrophils # 7.9 K/mm3 (1.8-7.8); Neutrophils % 69.3 % (37.0-80.0); Platelet Count 231 K/mm3 (142-424); Red Cell Distribution Width 14.5 % (11.5-17.5); White Blood Count 11.4 K/mm3 (4.8-10.8)
[2024-01-30 14:27] LABS: Alanine Aminotransferase 17 U/L (12-78); Albumin Level 4.4 g/dl (3.5-5.0); Albumin/Globulin Ratio 1.5 (1.1-1.8); Alkaline Phosphatase 72 U/L (38-126); Anion Gap 11.2 mEq/L (5-15); Aspartate Amino Transferase 25 U/L (17-59); Bilirubin,Total 0.7 mg/dl (0.2-1.3); Blood Urea Nitrogen 13 mg/dl (9-20); Calcium 9.9 mg/dl (8.4-10.2); Carbon Dioxide 24 mmol/L (22.0-30.0); Chloride 107 mmol/L (98-107); Estimated Glomerular Filt Rate 133 ml/min (>60); GFR (African American) 161 ML/MIN (>60); Globulin 2.9 g/dL (1.3-3.2); Glucose 129 mg/dl (74-100); Potassium 4.2 mmoL/L (3.5-5.1); Sodium 138 mmol/L (136-145); Total Protein,Serum 7.3 g/dl (6.3-8.2)
[2024-02-05 16:19] LABS: Hepatitis C Antibody Reactive
== END 2024-01-30 23:59 | disposition home or self-care (01) ==
LOC: LAB 13:16
PROVIDERS: PCP Nurse Practitioner Family; Visit Provider Nurse Practitioner Family
DX: B18.2 Chronic viral hepatitis C (principal)
CPT/HCPCS: 36415; 80053; 85025; 87380; 87522

== ENCOUNTER 2024-02-18 09:38 | Outpatient (CLI) | payer MEDICARE, OTHER, SELFPAY ==
[2024-02-18 18:58] LABS: Basophils # 0.1 K/mm3 (0-0.2); Basophils % 1.1 % (0.1-2.0); Eosinophils # 0.4 K/mm3 (0.0-0.4); Eosinophils % 4.6 % (0.1-12.0); Hematocrit 49.8 % (42.0-52.0); Hemoglobin 16.5 g/dL (14.1-18.0); Lymphocytes # 3.5 K/mm3 (0.7-4.5); Lymphocytes % 36.8 % (10-50); Mean Corpuscular HGB Conc 33.3 g/dL (31.8-35.4); Mean Corpuscular Hemoglobin 32.6 pg (27.0-31.2); Mean Corpuscular Volume 97.9 fl (80-94); Mean Platelet Volume 11.1 fl (7.4-10.4); Monocytes # 0.6 K/mm3 (0.1-1.0); Monocytes % 6.7 % (1.7-9.3); Neutrophils # 4.8 K/mm3 (1.8-7.8); Neutrophils % 50.7 % (37.0-80.0); Platelet Count 270 K/mm3 (142-424); Red Blood Count 5.08 M/mm3 (4.60-6.20); Red Cell Distribution Width 13.7 % (11.5-17.5); White Blood Count 9.6 K/mm3 (4.8-10.8)
[2024-02-18 19:12] LABS: Alanine Aminotransferase 15 U/L (12-78); Albumin Level 4.6 g/dl (3.5-5.0); Albumin/Globulin Ratio 1.4 (1.1-1.8); Alkaline Phosphatase 72 U/L (38-126); Anion Gap 14.2 mEq/L (5-15); Aspartate Amino Transferase 25 U/L (17-59); Bilirubin,Total 0.9 mg/dl (0.2-1.3); Blood Urea Nitrogen 15 mg/dl (9-20); Carbon Dioxide 26 mmol/L (22.0-30.0); Chloride 104 mmol/L (98-107); Chol/HDL Ratio 3.2 (1-3.5); Cholesterol 159 mg/dl (140-200); Estimated Glomerular Filt Rate 133 ml/min (>60); GFR (African American) 161 ML/MIN (>60); Globulin 3.2 g/dL (1.3-3.2); Glucose 92 mg/dl (74-100); HDL Cholesterol 50 mg/dl (40-60); Potassium 4.2 mmoL/L (3.5-5.1); Sodium 140 mmol/L (136-145); Total Protein,Serum 7.8 g/dl (6.3-8.2); Triglycerides 128 mg/dl (30-150); VLDL Cholesterol 26 mg/dL (0-40)
[2024-02-18 19:30] LABS: Erythrocyte Sedimentation Rate 13 mm/hr (0-20)
[2024-02-18 19:33] LABS: Direct LDL Cholesterol 79.57 mg/dL (100-129)
[2024-02-18 19:45] LABS: C-Reactive Protein < 0.3 mg/L (0-4)
[2024-02-18 20:15] LABS: Hemoglobin A1C 5.1 % (4.0-6.0)
[2024-02-20 07:20] LABS: RA Latex Turbid. <10.0 IU/mL (<14.0)
[2024-02-20 14:04] LABS: Anti-Cyclic Citrullinated Pept 6 units (0-19)
[2024-02-20 14:24] LABS: Anti-Centromere B Antibodies <0.2 AI (0.0-0.9); Anti-DNA (DS) Ab Qn 2 IU/mL (0-9); Anti-Jo-1 <0.2 AI (0.0-0.9); Anti-Smith Antibody <0.2 AI (0.0-0.9); Antichromatin Antibodies <0.2 AI (0.0-0.9); Antiscleroderma-70 Antibodies <0.2 AI (0.0-0.9); RNP Antibodies <0.2 AI (0.0-0.9); Sjogren's Anti-SS-A <0.2 AI (0.0-0.9); Sjogren's Anti-SS-B <0.2 AI (0.0-0.9)
== END 2024-02-18 23:59 | disposition home or self-care (01) ==
LOC: LAB.DROPOF 02-19 12:28
PROVIDERS: PCP Nurse Practitioner Family; Visit Provider Nurse Practitioner Family
DX: B18.2 Chronic viral hepatitis C (principal); F10.10 Alcohol abuse, uncomplicated; R73.03 Prediabetes; I10 Essential (primary) hypertension; Z87.891 Personal history of nicotine dependence
CPT/HCPCS: 80053; 80061; 83036; 85025; 85651; 86140; 86200; 86225; 86235; 86431

== ENCOUNTER 2024-03-30 11:45 | Outpatient (CLI) | payer MEDICARE, OTHER, SELFPAY ==
[2024-03-31 08:50] LABS: PSA, Free 0.99 ng/mL; Prostate Specific Ag 8.8 ng/mL (0.0-4.0)
== END 2024-03-30 23:59 | disposition home or self-care (01) ==
LOC: LAB 11:46
PROVIDERS: PCP Nurse Practitioner Family; Visit Provider Urology
DX: R97.20 Elevated prostate specific antigen [PSA] (principal)
CPT/HCPCS: 36415; 84153; 84154

== ENCOUNTER 2024-09-27 14:14 | Emergency (ER) | payer MEDICARE, OTHER, SELFPAY ==
[2024-09-27] VITALS (7 sets, daily range): BP systolic 144–202; BP diastolic 78–154; PULSE 74–85; RESP 18–20; TEMP 36.7–37.2; O2SAT 97–100; BMI 22.5
--- NOTE | 2024-09-27 14:23 | ECG_ITS ---
APPROVED REPORT Exam: Resting ECG HR:84 bpm ECG Measurements Heart Rate 84 AXES WA 153 P 64 QRSd 124 QRS -5 QT 370 T 50 QTc 412 Conclusion Sinus rhythm Intraventricular delay Electronically signed by : JARAD MARROQUIN, 09/28/2024 14:59:49
[2024-09-27 14:40] LABS: Coronavirus 19, PCR Not Detected (NotDetected); Influenza A, PCR Not Detected (NotDetected); Influenza B, PCR Not Detected (NotDetected)
--- NOTE | 2024-09-27 14:46 | CT_ITS ---
PROCEDURE INFORMATION: Exam: CT Abdomen And Pelvis With Contrast Exam date and time: 09/27/2024 3:35 PM Age: 69 years old Clinical indication: Abdominal pain; Additional info: Rlq abd pain TECHNIQUE: Imaging protocol: Computed tomography of the abdomen and pelvis with contrast. Radiation optimization: All CT scans at this facility use at least one of these dose optimization techniques: automated exposure control; mA and/or kV adjustment per patient size (includes targeted exams where dose is matched to clinical indication); or iterative reconstruction. Contrast material: ISOVUE; Contrast volume: 75 ml; Contrast route: IV; COMPARISON: CR XR CHEST 2V 02/02/2020 4:57 PM FINDINGS: Lungs: The lung bases are clear. Diaphragm: Small hiatus hernia. Liver: Hepatic steatosis. Gallbladder and biliary ducts: The gallbladder is unremarkable with no calcified stones visualized and no strandy inflammatory changes surrounding the gallbladder. Pancreas: The pancreas is normal in appearance. No evidence of pancreatic ductal dilatation. Spleen: The spleen is normal in appearance. Adrenal glands: The adrenal glands are normal in appearance. Kidneys and ureters: There is moderate right hydronephrosis and strandy inflammatory changes surrounding the right kidney and right renal pelvis. No renal calculi are identified on either side. Injury. The right ureter is nondilated. 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 No evidence of left hydronephrosis or left hydroureter. There is a simple appearing 3.5 cm left renal cortical cyst. Stomach and bowel: The small bowel loops are not thickened and are nondilated. There is colonic diverticulosis but no evidence of diverticulitis. Appendix: The appendix is not identified, but there are no inflammatory changes in its expected region. Intraperitoneal space: Trace ascites. Vasculature: Unremarkable. No abdominal aortic aneurysm. Lymph nodes: Unremarkable. No enlarged lymph nodes. Urinary bladder: Unremarkable as visualized. Reproductive: Unremarkable as visualized. Bones/joints: Bilateral hip arthroplasty. Soft tissues: Unremarkable. IMPRESSION: 1. Right hydronephrosis and strandy inflammatory changes surrounding the right kidney. No obstructing renal calculus is identified. The appearance is most suggestive of an infected UPJ obstruction. 2. Hepatic steatosis. 3. Colonic diverticulosis but no evidence of diverticulitis. 4. Trace ascites. COMMENTS: Consistent with the [employer]'s Incidental Findings Committee white paper (J Am Cookie Radiol 2018): Any incidental renal lesion less than 1 cm or classified as too small to characterize, or any incidental cystic renal lesion characterized as simple-appearing, is likely benign. No follow-up imaging is recommended for these lesions per consensus recommendations based on imaging criteria.
[2024-09-27 14:52] LABS: Microscopic, Urine URINE MICROSCOPIC (MICROSCOPIC)
[2024-09-27 14:56] LABS: Appearance,Urine CLEAR (Clear); Bilirubin,Urine Negative (Negative); Blood, Urine Negative (Negative); Color,Urine YELLOW (Yellow); Glucose,Urine (UA) Negative (Negative); Ketones,Urine 3+ (Negative); Leukocyte Esterase,Urine Negative (Negative); Nitrate,Urine Negative (Negative); Protein,Urine Negative (Negative); Specific Gravity, Urine >= 1.030 (1.005-1.030); Urobilinogen,Urine 0.2 EU/dl (0.2)
--- NOTE | 2024-09-27 14:58 | ED_ITS ---
Discharge Plan Disposition Patient Disposition: Home, Self-Care Prescriptions Prescriptions: No Action lisinopril 20 mg tablet 20 mg PO DAILY celecoxib [Celebrex] 50 mg capsule 50 mg PO BID methylprednisolone [Medrol (Kin)] 4 mg tablets,dose pack See Rx Instructions PO PER PKG DIR Qty: 21 0RF Rx Instructions: PO PER PKG DIR Referrals Follow up/Referrals: Thiago Gregory APRN [Primary Care Provider] - See instructions Nik Steiner MD [Staff Physician] - See instructions Activity Restrictions/Add. Instructions Additional Instructions/Restrictions: Follow up with Dr. Steiner in clinic for evaluation of right sided hydronephrosis (dilation of urinary system near the right kidney). Take Tylenol 1000 mg every 6 hours (4 times daily) and ibuprofen 400 mg every 6 hours (4 times daily) as needed with food and water to prevent GI upset and kidney damage. Begin taking 1 capful of MiraLAX daily to help prevent constipation. Call your family doctor to establish care for this visit to the emergency department and schedule follow-up within 48 hours to ensure improvement. If you have any worsening of your condition or any other concerning signs or symptoms, return to the emergency department or your primary care doctor for further evaluation. Clinical Impressions Clinical Impression: Abdominal pain, RLQ, Constipation, Hydronephrosis of right kidney Instructions Patient Instructions: DI for Acute Abdominal Pain Print Language Print Language: Greek Discharge ED Provider: Mateusz Bonilla General Adult HPI <Wisam Sands MD - Last Filed: 09/27/24 15:04> General Chief complaint: Abdominal Pain Stated complaint: vomiting gas pain lower abd pain Time Seen by Provider: 09/27/24 14:37 Mode of Arrival: Ambulatory Source of Information: Patient Limitations: No Limitations Description of Symptoms (Recalled from ER Triage Doc. by RN): pt is here for nasuea, vomiting and abd pain that he thinks is a bad gas bubble, pt had normal bm yesterday but thinks he is constipated now due to his mushroom soup last night History of Present Illness HPI narrative: Patient is a 69-year-old presenting today with right lower quadrant abdominal pain this been ongoing for the last 24 hours. States it has a baseline evidence of pain but intermittently will get significantly worse. He does have a history of kidney stones but states that typically presents with flank pain not anterior abdominal pain. Denies any hematuria frequency urgency etc. Also denies fevers or chills. Patient also admits to intermittent binge drinking. Has not had abdominal surgeries in the past including cholecystectomy or appendectomy. Related Data Home Medications ?Medication ?Instructions ?Recorded ?Confirmed lisinopril 20 mg tablet 20 mg PO DAILY htn 10/20/19 06/12/24 celecoxib 50 mg capsule (Celebrex) 50 mg PO BID 06/12/24 06/12/24 Previous Rx's ?Medication ?Instructions ?Recorded methylprednisolone 4 mg tablets in See Rx Instructions PO PER PKG DIR 06/12/24 a dose pack (Medrol (Kin)) #21 tabs Allergies Allergy/AdvReac Type Severity Reaction Status Date / Time prochlorperazine (From Allergy Verified 06/12/24 10:35 Compazine) ON LICENSE OF [facility] <Wisam Sands MD - Last Filed: 09/27/24 15:04> ON LICENSE OF [facility] Disclaimer: The information contained in this section may have been updated after the patient was seen, as this information can be updated by other users. Social History Smoking Status: Never smoker second hand exposure: Yes alcohol intake: never substance use type: marijuana current occupational status: employed Travel in the last 8 weeks: Inside the [place] household members: spouse housing: house current occupational exposures/hazards: No caffeine: Yes Have you lived/traveled outside [place] in past 30 days?: No Contact w/someone who lives/traveled outside US past 30 days?: No Exposure to someone with infectious disease in past 14 days?: No Do you have a fever (greater than 100.4 F or 38 C)?: No Have you tested positive for COVID-19: No Exposed to someone with COVID-19 in past 14 days?: No Do you have a sore throat?: No Do you have a cough?: No Do you have any weakness?: No Do you have any diarrhea?: No Are you experiencing any unusual bleeding?: No Do you have any muscle aches/pain?: No Do you have any abdominal pain?: Yes Are you experiencing loss of taste or smell?: No Other Medical History Have you received the Flu Vaccine for this season: No (not flu season yet) Have you received the Pneumonia Vaccine: No <Wisam Sands MD - Last Filed: 09/27/24 15:04> ROS Obtained: Yes All systems reviewed & no additional complaints except as documented Physical Exam <Wisam Sands MD - Last Filed: 09/27/24 15:04> General General appearance: alert Respiratory Respiratory exam: Present normal lung sounds bilaterally Cardiovascular Cardiovascular exam: Present regular rate Abdominal Exam Abdominal exam: Present soft and tenderness (Right lower quadrant abdominal tenderness) Neurological Exam Neurological exam: Present alert and oriented X3 Medical Decision Making <Wisam Sands MD - Last Filed: 09/27/24 15:04> Medical Records Screening: Per USPSTF and CDC recommendations, given the prevalence of disease in our region, it is our hospital?s policy to screen for HIV and viral Hepatitis for all patients aged 18 and over and those with ongoing risk factors. Pérez Inquiry Pt receiving controlled substance: No Vital Signs: 09/27/24 14:15 09/27/24 14:47 09/27/24 15:00 Temperature 99.0 F Temperature Source Oral Pulse Rate 81 85 Pulse Rate [Left Radial] 84 Respiratory Rate 20 Blood Pressure 202/112 H 178/154 H Blood Pressure [Right Arm] 178/97 H Blood Pressure Mean [Right Arm] 124 02 Sat by Pulse Oximetry 98 99 100 Oxygen Delivery Method Room Air Room Air Room Air 09/27/24 16:00 09/27/24 16:31 09/27/24 17:00 Temperature Temperature Source Pulse Rate 81 78 77 Pulse Rate [Left Radial] Respiratory Rate Blood Pressure 164/85 H 150/85 H 146/85 H Blood Pressure [Right Arm] Blood Pressure Mean [Right Arm] 02 Sat by Pulse Oximetry 97 97 99 Oxygen Delivery Method Room Air Room Air Room Air Lab Data Lab Results 09/27/24 14:31: Urine Color Yellow, Urine Appearance Clear, Urine pH 6.0, Ur Specific [place] >= 1.030, Urine Protein Negative, Urine Glucose (UA) Negative, Urine Ketones 3+, Urine Blood Negative, Urine Nitrate Negative, Urine Bilirubin Negative, Urine Urobilinogen 0.2, Ur Leukocyte Esterase Negative, Urine RBC None, Urine WBC Occasional, Ur Squamous Epith Cells None, Urine Bacteria Trace 09/27/24 14:32: SARS-CoV-2 (PCR) Not detected, Influenza A Untype (PCR) Not detected, Influenza Type B (PCR) Not detected 09/27/24 15:00: WBC 13.2 H, RBC 5.28, Hgb 16.3, Hct 46.4, MCV 87.9, MCH 30.9, MCHC 35.1, RDW 13.5, Plt Count 259, MPV 9.7, Neut % (Auto) 83.2 H, Lymph % (Auto) 10.6, Citrus % (Auto) 5.6, Eos % (Auto) 0.0 L, Baso % (Auto) 0.2, Neut # (Auto) 10.9 H, Lymph # (Auto) 1.4, [place] # (Auto) 0.7, Eos # (Auto) 0.0, Baso # (Auto) 0.0, Sodium 134 L, Potassium 4.7, Chloride 100, Carbon Dioxide 21 L, A nion Gap 17.7 H, BUN 15, Creatinine 0.90, Estimated Creat Clear 69, Estimated GFR 83, Est GFR ( Amer) 101, Glucose 129 H, Lactate 1.6, Calcium 10.0, Total Bilirubin 1.0, AST 39, ALT 25, Alkaline Phosphatase 89, Total Protein 7.7, Albumin 4.8, Globulin 2.9, Albumin/Globulin Ratio 1.7, Lipase 72 09/27/24 15:00 09/27/24 15:00 Orders (Tests/Meds): ED MEDICATIONS Generic Name Dose Route Start Last Admin Trade Name Freq PRN Reason Stop Dose Admin Sodium Chloride 10 ml 09/27/24 15:43 09/27/24 15:44 Sodium Chloride 0.9% 10ml Syr (Rad Only) IV 10/27/24 15:42 10 ml NEEDED PRN Administration Maintain IV Site Discontinued Medications Generic Name Dose Route Start Last Admin Trade Name Freq PRN Reason Stop Dose Admin Sodium Chloride 1,000 mls @ 999 mls/hr 09/27/24 15:00 09/27/24 15:07 Sod Chlor 0.9% 1000ml Bag IV 09/27/24 16:00 999 mls/hr .Q1H1M ELIZABETH Administration Iopamidol 75 ml 09/27/24 15:43 09/27/24 15:44 Iopamidol-370 (76%);100ml Bottle IV 09/27/24 15:44 75 ml ONCE ONE Administration Morphine Sulfate 4 mg 09/27/24 14:46 09/27/24 15:06 Morphine 4mg/Ml Syringe IV 09/27/24 14:47 4 mg ONCE ONE Administration Ondansetron HCl 4 mg 09/27/24 14:46 09/27/24 15:06 Ondansetron 4mg/2ml Vial IV 09/27/24 14:47 4 mg ONCE ONE Administration ORDERS Category Date Time Status CT abdomen pelvis w con Stat Cat Scan 09/27/24 14:46 Completed CBC w/Auto Diff [Complete Blood Count Auto Diff] Stat Lab 09/27/24 15:00 Completed CMP [Comprehensive Metabolic Panel] Stat Lab 09/27/24 15:00 Completed Lactic Acid Stat Lab 09/27/24 15:00 Completed Lipase Stat Lab 09/27/24 15:00 Completed Rapid PCR Covid and Flu A/B Stat Lab 09/27/24 14:32 Completed UA [Urinalysis and Microscopic] Stat Lab 09/27/24 14:31 Completed Medical Decision Narrative: 69-year-old male presenting today with predominantly right lower quadrant abdominal pain but he does have a little bit of mild tenderness in epigastric region right upper quadrant region with recent binge drinking. Most recent Omer he drank heavily yesterday. Differential includes appendicitis, obstructing kidney stone, constipation, hepatobiliary disease and pancreatitis. Will get a contrasted CT scan for further evaluation and management. IV fluids pain medicine nausea medicine have been administered will reassess. <Mateusz Bonilla MD - Last Filed: 09/27/24 17:37> Vital Signs: 09/27/24 14:15 09/27/24 14:47 09/27/24 15:00 Temperature 99.0 F Temperature Source Oral Pulse Rate 81 85 Pulse Rate [Left Radial] 84 Respiratory Rate 20 Blood Pressure 202/112 H 178/154 H Blood Pressure [Right Arm] 178/97 H Blood Pressure Mean [Right Arm] 124 02 Sat by Pulse Oximetry 98 99 100 Oxygen Delivery Method Room Air Room Air Room Air 09/27/24 16:00 09/27/24 16:31 09/27/24 17:00 Temperature Temperature Source Pulse Rate 81 78 77 Pulse Rate [Left Radial] Respiratory Rate Blood Pressure 164/85 H 150/85 H 146/85 H Blood Pressure [Right Arm] Blood Pressure Mean [Right Arm] 02 Sat by Pulse Oximetry 97 97 99 Oxygen Delivery Method Room Air Room Air Room Air Lab Data Lab Results 09/27/24 14:31: Urine Color Yellow, Urine Appearance Clear, Urine pH 6.0, Ur Specific [place] >= 1.030, Urine Protein Negative, Urine Glucose (UA) Negative, Urine Ketones 3+, Urine Blood Negative, Urine Nitrate Negative, Urine Bilirubin Negative, Urine Urobilinogen 0.2, Ur Leukocyte Esterase Negative, Urine RBC None, Urine WBC Occasional, Ur Squamous Epith Cells None, Urine Bacteria Trace 09/27/24 14:32: SARS-CoV-2 (PCR) Not detected, Influenza A Untype (PCR) Not detected, Influenza Type B (PCR) Not detected 09/27/24 15:00: WBC 13.2 H, RBC 5.28, Hgb 16.3, Hct 46.4, MCV 87.9, MCH 30.9, MCHC 35.1, RDW 13.5, Plt Count 259, MPV 9.7, Neut % (Auto) 83.2 H, Lymph % (Auto) 10.6, Citrus % (Auto) 5.6, Eos % (Auto) 0.0 L, Baso % (Auto) 0.2, Neut # (Auto) 10.9 H, Lymph # (Auto) 1.4, Cit[place] # (Auto) 0.7, Eos # (Auto) 0.0, Baso # (Auto) 0.0, Sodium 134 L, Potassium 4.7, Chloride 100, Carbon Dioxide 21 L, A nion Gap 17.7 H, BUN 15, Creatinine 0.90, Estimated Creat Clear 69, Estimated GFR 83, Est GFR ( Amer) 101, Glucose 129 H, Lactate 1.6, Calcium 10.0, Total Bilirubin 1.0, AST 39, ALT 25, Alkaline Phosphatase 89, Total Protein 7.7, Albumin 4.8, Globulin 2.9, Albumin/Globulin Ratio 1.7, Lipase 72 Orders (Tests/Meds): ED MEDICATIONS Generic Name Dose Route Start Last Admin Trade Name Freq PRN Reason Stop Dose Admin Sodium Chloride 10 ml 09/27/24 15:43 09/27/24 15:44 Sodium Chloride 0.9% 10ml Syr (Rad Only) IV 10/27/24 15:42 10 ml NEEDED PRN Administration Maintain IV Site Discontinued Medications Generic Name Dose Route Start Last Admin Trade Name Freq PRN Reason Stop Dose Admin Sodium Chloride 1,000 mls @ 999 mls/hr 09/27/24 15:00 09/27/24 15:07 Sod Chlor 0.9% 1000ml Bag IV 09/27/24 16:00 999 mls/hr .Q1H1M ELIZABETH Administration Iopamidol 75 ml 09/27/24 15:43 09/27/24 15:44 Iopamidol-370 (76%);100ml Bottle IV 09/27/24 15:44 75 ml ONCE ONE Administration Morphine Sulfate 4 mg 09/27/24 14:46 09/27/24 15:06 Morphine 4mg/Ml Syringe IV 09/27/24 14:47 4 mg ONCE ONE Administration Ondansetron HCl 4 mg 09/27/24 14:46 09/27/24 15:06 Ondansetron 4mg/2ml Vial IV 09/27/24 14:47 4 mg ONCE ONE Administration ORDERS Category Date Time Status CT abdomen pelvis w con Stat Cat Scan 09/27/24 14:46 Completed CBC w/Auto Diff [Complete Blood Count Auto Diff] Stat Lab 09/27/24 15:00 Completed CMP [Comprehensive Metabolic Panel] Stat Lab 09/27/24 15:00 Completed Lactic Acid Stat Lab 09/27/24 15:00 Completed Lipase Stat Lab 09/27/24 15:00 Completed Rapid PCR Covid and Flu A/B Stat Lab 09/27/24 14:32 Completed UA [Urinalysis and Microscopic] Stat Lab 09/27/24 14:31 Completed Medical Decision Narrative: 69-year-old male presenting today with predominantly right lower quadrant abdominal pain but he does have a little bit of mild tenderness in epigastric region right upper quadrant region with recent binge drinking. Most recent Omer he drank heavily yesterday. Differential includes appendicitis, obstructing kidney stone, constipation, hepatobiliary disease and pancreatitis. Will get a contrasted CT scan for further evaluation and management. IV fluids pain medicine nausea medicine have been administered will reassess. Chad: I assumed primary responsibility for this patient after signout from previous physician. On my evaluation, patient no acute distress speaking full sentences and very well-appearing. Abdomen soft, benign. Independent interpretation of workup with white count 13,000, neutrophilia. Patient's chemistry nonactionable with normal kidney function. Lactate and lipase negative. Urinalysis with sterile urine. CT abdomen and pelvis with mild ascites, right-sided hydronephrosis, but no other acute intra-abdominal process necessitating admission or surgery. Patient is moderately constipated, this was relayed to him. Out of abundance of caution, I contacted Dr. Steiner at [facility] and urology to discuss the case. Recommended outpatient follow-up given normal kidney function, sterile urine, and no other findings necessitating transfer. I feel this is appropriate as well. Patient symptoms are consistent with hydronephrosis. States that he intermittently has right-sided abdominal pains that radiate into his right flank and intermittently having right flank pains radiating forward into his abdomen. Because patient at baseline without signs or symptoms of clinical decompensation, deemed appropriate for discharge. Results were relayed to patient who voiced understanding and were agreeable to outpatient management and follow up. I discussed my clinical impression with patient and answered all questions. At this time, the evidence for any other entities in the differential is insufficient to warrant any further testing or ED observation. This was explained as well. Advisory was given that persistent or worsening symptoms require further evaluation. I confirmed the understanding of this discussion. Critical Care <Wisam Sands MD - Last Filed: 09/27/24 15:04> Critical Care Time Critical Care Time: No
[2024-09-27] MEDS: MORPHINE 4MG/ML SYRINGE 4 MG IV (15:06)
[2024-09-27] MEDS: ONDANSETRON 4MG/2ML VIAL 4 MG IV (15:06)
[2024-09-27] MEDS: 0.9 % SODIUM CHLORIDE 1000ML 1,000 ML 999 ML IV (15:07)
[2024-09-27 15:09] LABS: Basophils % 0.2 % (0.1-2.0); Hematocrit 46.4 % (42.0-52.0); Hemoglobin 16.3 g/dL (14.1-18.0); Lymphocytes # 1.4 K/mm3 (0.7-4.5); Lymphocytes % 10.6 % (10-50); Mean Corpuscular HGB Conc 35.1 g/dL (31.8-35.4); Mean Corpuscular Hemoglobin 30.9 pg (27.0-31.2); Mean Corpuscular Volume 87.9 fl (80-94); Mean Platelet Volume 9.7 fl (7.4-10.4); Monocytes # 0.7 K/mm3 (0.1-1.0); Monocytes % 5.6 % (1.7-9.3); Neutrophils # 10.9 K/mm3 (1.8-7.8); Neutrophils % 83.2 % (37.0-80.0); Platelet Count 259 K/mm3 (142-424); Red Blood Count 5.28 M/mm3 (4.60-6.20); Red Cell Distribution Width 13.5 % (11.5-17.5); White Blood Count 13.2 K/mm3 (4.8-10.8)
[2024-09-27 15:16] LABS: Bacteria,Urine Trace /lpf; WBC,Urine Occasional #/hpf (0-3)
[2024-09-27 15:16] LABS: Albumin Level 4.8 g/dl (3.5-5.0); Chloride 100 mmol/L (98-107); Potassium 4.7 mmoL/L (3.5-5.1); Sodium 134 mmol/L (136-145)
[2024-09-27 15:19] LABS: Alanine Aminotransferase 25 U/L (12-78); Albumin/Globulin Ratio 1.7 (1.1-1.8); Alkaline Phosphatase 89 U/L (38-126); Anion Gap 17.7 mEq/L (5-15); Aspartate Amino Transferase 39 U/L (17-59); Blood Urea Nitrogen 15 mg/dl (9-20); Carbon Dioxide 21 mmol/L (22.0-30.0); Creatinine Clearance Estimated 69 mL/min (50-200); Estimated Glomerular Filt Rate 83 ml/min (>60); GFR (African American) 101 ML/MIN (>60); Globulin 2.9 g/dL (1.3-3.2); Lactic Acid 1.6 mmol/L (0.7-2.1); Lipase 72 U/L (23-300); Total Protein,Serum 7.7 g/dl (6.3-8.2)
[2024-09-27 15:20] LABS: Glucose 129 mg/dl (74-100)
[2024-09-27] MEDS: SODIUM CHLORIDE 0.9% 10ML SYR (RAD ONLY) 10 ML IV (15:44)
[2024-09-27] MEDS: IOPAMIDOL-370 (76%);100ML BOTTLE 75 ML IV (15:44)
--- NOTE | 2024-09-27 17:09 | PC.NURSE ---
Called [facility] per Dr. Wills for right ureter obstruction, [facility] states they will give us a call back.
--- NOTE | 2024-09-27 17:16 | PC.NURSE ---
[facility] called [facility] and stated that [facility]'t have [facility] on Saturday. [facility].
--- NOTE | 2024-09-27 17:24 | PC.NURSE ---
Dr. Bonilla s/w Dr. Steiner, Urology @ [facility]
== END 2024-09-27 17:48 | disposition home or self-care (01) ==
PROVIDERS: Physician Assistant; Student in an Organized Health Care Education/Training Program; Emergency Provider Emergency Medicine; PCP Nurse Practitioner Family
DX: N13.30 Unspecified hydronephrosis (principal); R11.2 Nausea with vomiting, unspecified; R10.31 Right lower quadrant pain
CPT/HCPCS: 74177; 80053; 81001; 83605; 83690; 85025; 87636; 93005; 96361; 96374; 96375; 99285; J2270; J2405; J7030; Q9967

== ENCOUNTER 2024-09-28 21:49 | Observation (INO) | payer MEDICARE, OTHER, SELFPAY ==
[2024-09-28 21:50] VITALS: BP 208/115; PULSE 84; RESP 16; TEMP 36.9; O2SAT 98; BMI 22.5
--- NOTE | 2024-09-28 22:45 | CT_ITS ---
PROCEDURE INFORMATION: Exam: CT Abdomen And Pelvis With Contrast Exam date and time: 09/29/2024 12:00 AM Age: 69 years old Clinical indication: Vomiting; Abdominal pain; Generalized; Additional info: Vomiting and concern for obstruction TECHNIQUE: Imaging protocol: Computed tomography of the abdomen and pelvis with contrast. Radiation optimization: All CT scans at this facility use at least one of these dose optimization techniques: automated exposure control; mA and/or kV adjustment per patient size (includes targeted exams where dose is matched to clinical indication); or iterative reconstruction. Contrast material: ISOVUE; Contrast volume: 75 ml; Contrast route: IV; COMPARISON: 1. CT ABDOMEN PELVIS W CON 09/27/2024 3:35 PM 2. CR XR CHEST 2V 02/02/2020 4:57 PM 3. CR XR CHEST PORTABLE 06/26/2019 12:46 PM FINDINGS: Lungs: Scattered areas of bronchial wall thickening which are likely chronic inflammatory. A few areas of subpleural reticulation are noted, nonspecific. Liver: There are low-density lesions in the liver which most likely reflect a combination of cysts and/or hemangiomas. Gallbladder and biliary ducts: No acute process. Pancreas: Normal. Spleen: Normal. Adrenal glands: The adrenal glands appear normal. Kidneys and ureters: Simple appearing left renal cyst. No change in severe right hydroureteronephrosis with new hyperdensity in the renal collecting system consistent with excreted contrast from yesterday's examination. Stomach and bowel: There is fluid distension of the colon which could be seen in a diarrheal state. Mild fluid distention of small-bowel loops. There are scattered colonic diverticula. Appendix: No evidence of appendicitis. Intraperitoneal space: Unremarkable. Vasculature: There is atherosclerotic disease of the visualized aorta and its major branch vessels. Lymph nodes: There are mildly prominent but nonenlarged and nonspecific retroperitoneal nodes. Mildly prominent nodes in the central mesentery, nonspecific. Urinary bladder: Unremarkable as visualized. Reproductive: No acute process. Bones/joints: Status post right hip arthroplasty with associated streak artifact which limits evaluation of the pelvis. There is a left hip arthroplasty with associated streak artifact mildly limits evaluation of the pelvis. There is diffuse degenerative disease of the visualized osseous structures. There is slight retrolisthesis of L5 on S1 Soft tissues: Unremarkable. IMPRESSION: 1. Significant fluid distension of the colon without a focal point of obstruction identified, appearance suggestive of diarrheal state. Small bowel loops appear relatively collapsed. 2. No change in significant right-sided hydroureteronephrosis COMMENTS: Consistent with the [employer]'s Incidental Findings Committee white paper (J Am Cookie Radiol 2018): Any incidental renal lesion less than 1 cm or classified as too small to characterize, or any incidental cystic renal lesion characterized as simple-appearing, is likely benign. No follow-up imaging is recommended for these lesions per consensus recommendations based on imaging criteria.
[2024-09-28] MEDS: PROMETHAZINE HCL 25MG/ML 1ML VIAL 25 MG IV (23:04)
[2024-09-28] MEDS: SODIUM CHLORIDE 0.9% 25ML BAG 25 ML IV (23:04)
[2024-09-28] MEDS: HYDROMORPHONE 2MG/ML SYRINGE 1 MG IV (23:05)
[2024-09-28 23:09] LABS: Basophils # 0.1 K/mm3 (0-0.2); Basophils % 0.4 % (0.1-2.0); Eosinophils # 0.1 K/mm3 (0.0-0.4); Eosinophils % 0.6 % (0.1-12.0); Hematocrit 48.6 % (42.0-52.0); Hemoglobin 17.3 g/dL (14.1-18.0); Lymphocytes % 22.7 % (10-50); Mean Corpuscular HGB Conc 35.6 g/dL (31.8-35.4); Mean Corpuscular Hemoglobin 31.7 pg (27.0-31.2); Mean Platelet Volume 11.1 fl (7.4-10.4); Monocytes # 1.2 K/mm3 (0.1-1.0); Monocytes % 8.9 % (1.7-9.3); Neutrophils # 8.8 K/mm3 (1.8-7.8); Platelet Count 206 K/mm3 (142-424); Red Blood Count 5.46 M/mm3 (4.60-6.20); Red Cell Distribution Width 13.5 % (11.5-17.5); White Blood Count 13.1 K/mm3 (4.8-10.8)
--- NOTE | 2024-09-28 23:16 | HMH.EDGENADL ---
Discharge Plan Disposition Patient Disposition: Admitted Condition: Fair Prescriptions Prescriptions: No Action lisinopril 20 mg tablet 20 mg PO DAILY celecoxib [Celebrex] 50 mg capsule 50 mg PO BID methylprednisolone [Medrol (Kin)] 4 mg tablets,dose pack See Rx Instructions PO PER PKG DIR Qty: 21 0RF Rx Instructions: PO PER PKG DIR Referrals Follow up/Referrals: Thiago Gregory APRN [Primary Care Provider] - See instructions Clinical Impressions Clinical Impression: Abdominal pain, Hydronephrosis Instructions Patient Instructions: DI for Acute Abdominal Pain Print Language Print Language: B[place] Discharge ED Provider: Mateusz Bonilla General Adult HPI <Mateusz Bonilla MD - Last Filed: 09/28/24 23:30> General Chief complaint: Abdominal Pain Stated complaint: Impacted Time Seen by Provider: 09/28/24 22:28 Mode of Arrival: Ambulatory Source of Information: Patient Limitations: No Limitations Description of Symptoms (Recalled from ER Triage Doc. by RN): Pt was seen here yesterday and was dx with bowel obstructions. Followed instuctions to take miralax/laxatives without results. Pt then did fleet enema and had some results small amount per pt. pt now having abd pain/nausea and has not had any further bowel movements since 1400 History of Present Illness HPI narrative: Please note that above description of symptoms, in this electronic medical record under categorization of recalled from ER triage doctor by RN are reflective of an initial nursing assessment, however, is not reflective of my full history and physical exam that was personally taken and clarified. Consequentially, this preceding description of symptoms, which may include the patient's categorized chief complaint in the EMR, do not reflect my personal clinical impression, and the ultimate description of history of present illness and patient stated complaints should be deferred to this section of the note. Unless stated otherwise or congruent with this section of the note, additional signs, symptoms, or incongruence should be interpreted as inaccurate with my clinical impression. Related Data Home Medications ?Medication ?Instructions ?Recorded ?Confirmed lisinopril 20 mg tablet 20 mg PO DAILY htn 10/20/19 06/12/24 celecoxib 50 mg capsule (Celebrex) 50 mg PO BID 06/12/24 06/12/24 Previous Rx's ?Medication ?Instructions ?Recorded methylprednisolone 4 mg tablets in See Rx Instructions PO PER PKG DIR 09/13/24 a dose pack (Medrol (Kin)) #21 tabs Allergies Allergy/AdvReac Type Severity Reaction Status Date / Time prochlorperazine (From Allergy Verified 06/12/24 10:35 Compazine) [facility] <Mateusz Bonilla MD - Last Filed: 09/28/24 23:30> [facility] Disclaimer: The information contained in this section may have been updated after the patient was seen, as this information can be updated by other users. Social History Smoking Status: Unknown if ever smoked second hand exposure: Yes alcohol intake: never substance use type: marijuana current occupational status: employed Travel in the last 8 weeks: Inside the [place] household members: spouse housing: house current occupational exposures/hazards: No caffeine: Yes Have you lived/traveled outside [place] in past 30 days?: No Contact w/someone who lives/traveled outside [place] past 30 days?: No Exposure to someone with infectious disease in past 14 days?: No Do you have a fever (greater than 100.4 F or 38 C)?: No Have you tested positive for COVID-19: No Exposed to someone with COVID-19 in past 14 days?: No Do you have a sore throat?: No Do you have a cough?: No Do you have any weakness?: No Do you have any diarrhea?: No Are you experiencing any unusual bleeding?: No Do you have any muscle aches/pain?: No Do you have any abdominal pain?: No Are you experiencing loss of taste or smell?: No Other Medical History Have you received the Flu Vaccine for this season: No (not flu season yet) Have you received the Pneumonia Vaccine: No <Mateusz Bonilla MD - Last Filed: 09/28/24 23:30> ROS Obtained: Yes All systems reviewed & no additional complaints except as documented Physical Exam <Mateusz Bonilla MD - Last Filed: 09/28/24 23:30> General General appearance: alert and in distress Head Head exam: atraumatic and normocephalic Eye Eye exam: Present normal appearance, PERRL and EOMI Neck Neck exam: Present normal inspection, full ROM and trachea midline Respiratory Respiratory exam: Present normal lung sounds bilaterally; Absent respiratory distress, wheezes, stridor, accessory muscle use or prolonged expiratory phase Cardiovascular Cardiovascular exam: Present other (Pulses equal symmetric in upper and lower extremities) Abdominal Exam Abdominal exam: Present soft and tenderness; Absent distention, guarding, rebound, rigidity or pulsatile mass Abdominal tenderness: Present diffuse and mild Extremities Exam Extremities exam: Absent edema Neurological Exam Neurological exam: Present alert, oriented X3 and CN II-XII intact; Absent motor sensory deficit Skin Skin exam: Present warm and dry; Absent diaphoresis or erythema Medical Decision Making <Mateusz Boinlla MD - Last Filed: 09/28/24 23:30> Medical Records Medical records reviewed: Yes I reviewed the patient's medical records. Screening: Per USPSTF and CDC recommendations, given the prevalence of disease in our region, it is our hospital?s policy to screen for HIV and viral Hepatitis for all patients aged 18 and over and those with ongoing risk factors. Pérez Inquiry Pt receiving controlled substance: No Pérez was queried for this patient: No Vital Signs: 09/28/24 21:50 Temperature 98.4 F Temperature Source Oral Pulse Rate [Apical] 84 Respiratory Rate 16 Blood Pressure [Right Arm] 208/115 H Blood Pressure Mean [Right Arm] 146 02 Sat by Pulse Oximetry 98 Oxygen Delivery Method Room Air Lab Data Lab Results 09/28/24 22:53: WBC 13.1 H, RBC 5.46, Hgb 17.3, Hct 48.6, MCV 89.0, MCH 31.7 H, MCHC 35.6 H, RDW 13.5, Plt Count 206, MPV 11.1 H, Neut % (Auto) 67.0, Lymph % (Auto) 22.7, Avery % (Auto) 8.9, Eos % (Auto) 0.6, Baso % (Auto) 0.4, Neut # (Auto) 8.8 H, Lymph # (Auto) 3.0, Avery # (Auto) 1.2 H, Eos # (Auto) 0.1, Baso # (Auto) 0.1, Sodium 137, Potassium 4.0, Chloride 98, Carbon Dioxide 24, Anion Gap 19.0 H, BUN 14, Creatinine 1.10 D, Estimated Creat Clear 63, Estimated GFR 66, Est GFR ( Amer) 80 D, Glucose 110 H, Lactate 1.7, Calcium 10.6 H, Total Bilirubin 1.8 H, AST 46, ALT 24, Alkaline Phosphatase 91, Total Protein 8.5 H, Albumin 5.3 H D, Globulin 3.2, Albumin/Globulin Ratio 1.7, Lipase 95 09/28/24 23:49: Urine Color Yellow, Urine Appearance Clear, Urine pH 6.0, Ur Specific [place] >= 1.030, Urine Protein Negative, Urine Glucose (UA) Negative, Urine Ketones 3+, Urine Blood Negative, Urine Nitrate Negative, Urine Bilirubin 2+ A, Urine Urobilinogen 0.2, Ur Leukocyte Esterase Negative, Urine RBC None, Urine WBC Occasional, Ur Squamous Epith Cells Occasional, Urine Bacteria Trace, Urine Mucus 1+ 09/28/24 22:53 09/28/24 22:53 Orders (Tests/Meds): ED MEDICATIONS Discontinued Medications Generic Name Dose Route Start Last Admin Trade Name Freq PRN Reason Stop Dose Admin Hydromorphone HCl 1 mg 09/28/24 22:45 09/28/24 23:05 Hydromorphone 2mg/Ml Syringe IV 09/28/24 22:46 1 mg ONCE ONE Administration Hydromorphone HCl 0.5 mg 09/29/24 00:42 09/29/24 01:01 Hydromorphone 2mg/Ml Syringe IV 09/29/24 00:43 0.5 mg ONCE ONE Administration Iopamidol 75 ml 09/29/24 00:02 09/29/24 00:03 Iopamidol-370 (76%);100ml Bottle IV 09/29/24 00:03 75 ml ONCE ONE Administration Promethazine HCl 25 mg 09/28/24 22:45 09/28/24 23:04 Promethazine Hcl 25mg/Ml 1ml Vial IV 09/28/24 22:46 25 mg ONCE ONE Administration Sodium Chloride 25 ml 09/28/24 22:45 09/28/24 23:04 Sodium Chloride 0.9% 25ml Bag IV 09/28/24 22:46 25 ml ONCE ONE Administration Sodium Chloride 10 ml 09/29/24 00:02 09/29/24 00:03 Sodium Chloride 0.9% 10ml Syr (Rad Only) IV 09/29/24 00:03 10 ml ONCE ONE Administration ORDERS Category Date Time Status CT abdomen pelvis w con Stat Cat Scan 09/28/24 22:45 Completed CBC w/Auto Diff [Complete Blood Count Auto Diff] Stat Lab 09/28/24 22:53 Completed CMP [Comprehensive Metabolic Panel] Stat Lab 09/28/24 22:53 Completed HIV Combo Stat Lab 09/28/24 22:53 Received Hep C Ab with Reflex to RNA Stat Lab 09/28/24 22:53 Received Lactic Acid Stat Lab 09/28/24 22:53 Completed Lipase Stat Lab 09/28/24 22:53 Completed UA [Urinalysis and Microscopic] Stat Lab 09/28/24 23:49 Completed Medical Decision Narrative: This is a 69-year-old male presenting with abdominal pain. Patient was seen yesterday and discharged by me. He had right sided hydronephrosis as well as large stool burden on his CT, otherwise nonactionable workup. Patient states that today, he did bowel regimen x 2 that was prescribed to him. States that he went on a 2 mile walk x 2 as well. After 2 mile walk, had lots of cramping, passed large mushroom That he ate yesterday when his made mushroom soup. Has had severe abdominal cramping retching, vomiting this and nonbloody, nonbilious. Patient states his pain is severe, diffuse, does not radiate. Came in for further evaluation. istory was obtained via conversation with patient. On arrival, patient hemodynamically stable, alert, oriented x4, appropriate, GCS 15, moving all extremities spontaneously, pupils equal and reactive to light. Full physical exam performed and significant for patient appears to be in moderate distress. He is retching and uncomfortable. Abdomen is soft, diffusely tender, nonperitoneal. Hypertensive, nontachycardic. Differential includes small bowel obstruction, pseudoobstruction, intraluminal obstruction, perforation, nephrolithiasis, pancreatitis, appendicitis, cholecystitis, hepatitis, among others Patient placed on continuous cardiac monitoring and continuous pulse ox with initial blood pressure 205/115, heart rate 84, saturation 98%. Labs ordered, imaging ordered. Patient was given Dilaudid and Phenergan. Prior to workup, care handed off to oncoming physician. Americanization Teacher disclaimer Much of this encounter note is an electronic consumer electronics merchandiser spoken language to printed text. Electronic consumer electronics merchandiser of the spoken language may permit errors. Although I have reviewed the note, some errors may still exist. <Fadia Pereira MD - Last Filed: 09/29/24 01:47> Vital Signs: 09/28/24 21:50 Temperature 98.4 F Temperature Source Oral Pulse Rate [Apical] 84 Respiratory Rate 16 Blood Pressure [Right Arm] 208/115 H Blood Pressure Mean [Right Arm] 146 02 Sat by Pulse Oximetry 98 Oxygen Delivery Method Room Air Lab Data Lab Results 09/28/24 22:53: WBC 13.1 H, RBC 5.46, Hgb 17.3, Hct 48.6, MCV 89.0, MCH 31.7 H, MCHC 35.6 H, RDW 13.5, Plt Count 206, MPV 11.1 H, Neut % (Auto) 67.0, Lymph % (Auto) 22.7, Avery % (Auto) 8.9, Eos % (Auto) 0.6, Baso % (Auto) 0.4, Neut # (Auto) 8.8 H, Lymph # (Auto) 3.0, Avery # (Auto) 1.2 H, Eos # (Auto) 0.1, Baso # (Auto) 0.1, Sodium 137, Potassium 4.0, Chloride 98, Carbon Dioxide 24, Anion Gap 19.0 H, BUN 14, Creatinine 1.10 D, Estimated Creat Clear 63, Estimated GFR 66, Est GFR ( Amer) 80 D, Glucose 110 H, Lactate 1.7, Calcium 10.6 H, Total Bilirubin 1.8 H, AST 46, ALT 24, Alkaline Phosphatase 91, Total Protein 8.5 H, Albumin 5.3 H D, Globulin 3.2, Albumin/Globulin Ratio 1.7, Lipase 95 09/28/24 23:49: Urine Color Yellow, Urine Appearance Clear, Urine pH 6.0, Ur Specific [place] >= 1.030, Urine Protein Negative, Urine Glucose (UA) Negative, Urine Ketones 3+, Urine Blood Negative, Urine Nitrate Negative, Urine Bilirubin 2+ A, Urine Urobilinogen 0.2, Ur Leukocyte Esterase Negative, Urine RBC None, Urine WBC Occasional, Ur Squamous Epith Cells Occasional, Urine Bacteria Trace, Urine Mucus 1+ Orders (Tests/Meds): ED MEDICATIONS Discontinued Medications Generic Name Dose Route Start Last Admin Trade Name Freq PRN Reason Stop Dose Admin Hydromorphone HCl 1 mg 09/28/24 22:45 09/28/24 23:05 Hydromorphone 2mg/Ml Syringe IV 09/28/24 22:46 1 mg ONCE ONE Administration Hydromorphone HCl 0.5 mg 09/29/24 00:42 09/29/24 01:01 Hydromorphone 2mg/Ml Syringe IV 09/29/24 00:43 0.5 mg ONCE ONE Administration Iopamidol 75 ml 09/29/24 00:02 09/29/24 00:03 Iopamidol-370 (76%);100ml Bottle IV 09/29/24 00:03 75 ml ONCE ONE Administration Promethazine HCl 25 mg 09/28/24 22:45 09/28/24 23:04 Promethazine Hcl 25mg/Ml 1ml Vial IV 09/28/24 22:46 25 mg ONCE ONE Administration Sodium Chloride 25 ml 09/28/24 22:45 09/28/24 23:04 Sodium Chloride 0.9% 25ml Bag IV 09/28/24 22:46 25 ml ONCE ONE Administration Sodium Chloride 10 ml 09/29/24 00:02 09/29/24 00:03 Sodium Chloride 0.9% 10ml Syr (Rad Only) IV 09/29/24 00:03 10 ml ONCE ONE Administration ORDERS Category Date Time Status CT abdomen pelvis w con Stat Cat Scan 09/28/24 22:45 Completed CBC w/Auto Diff [Complete Blood Count Auto Diff] Stat Lab 09/28/24 22:53 Completed CMP [Comprehensive Metabolic Panel] Stat Lab 09/28/24 22:53 Completed HIV Combo Stat Lab 09/28/24 22:53 Received Hep C Ab with Reflex to RNA Stat Lab 09/28/24 22:53 Received Lactic Acid Stat Lab 09/28/24 22:53 Completed Lipase Stat Lab 09/28/24 22:53 Completed UA [Urinalysis and Microscopic] Stat Lab 09/28/24 23:49 Completed Medical Decision Narrative: This is a 69-year-old male presenting with abdominal pain. Patient was seen yesterday and discharged by me. He had right sided hydronephrosis as well as large stool burden on his CT, otherwise nonactionable workup. Patient states that today, he did bowel regimen x 2 that was prescribed to him. States that he went on a 2 mile walk x 2 as well. After 2 mile walk, had lots of cramping, passed large mushroom That he ate yesterday when his made mushroom soup. Has had severe abdominal cramping retching, vomiting this and nonbloody, nonbilious. Patient states his pain is severe, diffuse, does not radiate. Came in for further evaluation. istory was obtained via conversation with patient. On arrival, patient hemodynamically stable, alert, oriented x4, appropriate, GCS 15, moving all extremities spontaneously, pupils equal and reactive to light. Full physical exam performed and significant for patient appears to be in moderate distress. He is retching and uncomfortable. Abdomen is soft, diffusely tender, nonperitoneal. Hypertensive, nontachycardic. Differential includes small bowel obstruction, pseudoobstruction, intraluminal obstruction, perforation, nephrolithiasis, pancreatitis, appendicitis, cholecystitis, hepatitis, among others Patient placed on continuous cardiac monitoring and continuous pulse ox with initial blood pressure 205/115, heart rate 84, saturation 98%. Labs ordered, imaging ordered. Patient was given Dilaudid and Phenergan. Prior to workup, care handed off to oncoming physician. Americanization Teacher disclaimer Much of this encounter note is an electronic consumer electronics merchandiser spoken language to printed text. Electronic consumer electronics merchandiser of the spoken language may permit errors. Although I have reviewed the note, some errors may still exist. Pereira: Upon my assumption of care patient is stable, he still is having abdominal discomfort so additional Dilaudid was administered. I agree with the assessment and plan from Dr. Bonilla. I reviewed labs which do not demonstrate transaminitis, slight increase in creatinine but still within normal range at 1.1, CBC with leukocytosis stable from yesterday, UA negative for findings of infection. CT abdomen pelvis personally interpreted demonstrates fluid throughout the colon however there is not an obvious point of obstruction on a personal interpretation. It is possible patient has an intraluminal obstruction that cannot be visualized on CT, however there does not appear to be a specific transition point. See radiology read for final interpretation. Patient is resting more comfortably. He understands his results. At this time I believe he requires admission since he has had significant pain and is not yet having bowel movement. I do not believe surgical intervention or consultation is necessary at this time since patient does not have a transition point and more likely has an intraluminal obstruction. He did report to me that his mushrooms were picked up at the store, [employer] Significantly less concern for toxic mushroom poisoning with this history. I discussed this case with the hospitalist including patient's symptoms, CT findings. He graciously except the patient for admission. Critical Care <Mateusz Bonilla MD - Last Filed: 09/28/24 23:30> Critical Care Time Critical Care Time: No
[2024-09-28 23:29] LABS: Alanine Aminotransferase 24 U/L (12-78); Albumin Level 5.3 g/dl (3.5-5.0); Albumin/Globulin Ratio 1.7 (1.1-1.8); Alkaline Phosphatase 91 U/L (38-126); Aspartate Amino Transferase 46 U/L (17-59); Bilirubin,Total 1.8 mg/dl (0.2-1.3); Blood Urea Nitrogen 14 mg/dl (9-20); Calcium 10.6 mg/dl (8.4-10.2); Carbon Dioxide 24 mmol/L (22.0-30.0); Chloride 98 mmol/L (98-107); Creatinine Clearance Estimated 63 mL/min (50-200); Estimated Glomerular Filt Rate 66 ml/min (>60); GFR (African American) 80 ML/MIN (>60); Globulin 3.2 g/dL (1.3-3.2); Glucose 110 mg/dl (74-100); Lactic Acid 1.7 mmol/L (0.7-2.1); Sodium 137 mmol/L (136-145); Total Protein,Serum 8.5 g/dl (6.3-8.2)
[2024-09-28 23:43] LABS: Lipase 95 U/L (23-300)
[2024-09-28 23:54] LABS: Microscopic, Urine URINE MICROSCOPIC (MICROSCOPIC)
[2024-09-28 23:55] LABS: Appearance,Urine CLEAR (Clear); Blood, Urine Negative (Negative); Color,Urine YELLOW (Yellow); Glucose,Urine (UA) Negative (Negative); Ketones,Urine 3+ (Negative); Leukocyte Esterase,Urine Negative (Negative); Nitrate,Urine Negative (Negative); Protein,Urine Negative (Negative); Specific Gravity, Urine >= 1.030 (1.005-1.030); Urobilinogen,Urine 0.2 EU/dl (0.2)
[2024-09-28 23:58] LABS: Bilirubin,Urine 2+ (Negative)
[2024-09-29] MEDS: IOPAMIDOL-370 (76%);100ML BOTTLE 75 ML IV (00:03)
[2024-09-29] MEDS: SODIUM CHLORIDE 0.9% 10ML SYR (RAD ONLY) 10 ML IV (00:03)
[2024-09-29 00:05] LABS: Bacteria,Urine Trace /lpf; Mucus,Urine 1+ /lpf; Squamous Epithelial Cell,Urine Occasional #/hpf (0-5); WBC,Urine Occasional #/hpf (0-3)
[2024-09-29] MEDS: HYDROMORPHONE 2MG/ML SYRINGE 0.5 MG IV (01:01)
[2024-09-29 01:46] VITALS: BP 130/78; PULSE 77; RESP 20; TEMP 36.6; O2SAT 95
[2024-09-29 02:01] VITALS: BP 135/81; PULSE 75; RESP 18; TEMP 37.2; O2SAT 98
--- NOTE | 2024-09-29 02:10 | PC.NURSE ---
PAtient arrived [facility] via wheelchair from ED at 02:09.
[2024-09-29] MEDS: 0.9 % SODIUM CHLORIDE 1000ML 1,000 ML 125 ML IV (02:45)
--- NOTE | 2024-09-29 03:17 | P.HP_ITS ---
History of Present Illness *Admission Date: 09/29/24 *Reason for visit:: Continued abdominal pain and constipation since Saturday *History of present illness: This patient stated that on the of this month he had eaten some soup that his made that had a lot of whole mushroom, these were store-bought mushrooms. [place] fine that day but on Saturday felt very bad, very constipated bloating with some abdominal discomfort that was getting worse he took laxatives believe or Duca locks and then also MiraLAX. Drink more than a quart of Gatorade he then walked for more than 2 miles was able to have some gas passing and gave him some pain relief allowed him to sleep. On Saturday the problem continued and was progressively worsening repeated the laxatives and actually gave a fleets enema with no relief and came to the emergency room . Per the patient's personal history he normally does not have any significant constipation said maybe once or twice a year he might have to take something for it. Last colonoscopy was done in 2019 just showed a fairly large amount of diverticulosis. Please see emergency room note. But noted for right kidney enlargement with a cyst., Did show air and stool in the colon. CT results: Right hydronephrosis and strandy inflammatory changes surrounding the right kidney. No obstructing renal calculus is identified. The appearance is most suggestive of an infected UPJ obstruction. 2. Hepatic steatosis. 3. Colonic diverticulosis but no evidence of diverticulitis. 4. Trace ascites. So patient went home. Began to have more problems today with increasing amount of pain. He only had 1 small bowel movement with some undigested mushrooms. Came back to the emergency room in severe pain actually had to receive IV opioids for pain relief. He says he is much better with the pain medicine as long as he is laying still but getting up causes pain to return as if it is gas pain. CT scan was repeated on his second visit. That shows a very significant amount of dilated loops of bowel that have air and still a large amount of stool. CT scan was read as follows.. 1. Significant fluid distension of the colon without a focal point of obstruction identified, appearance suggestive of diarrheal state. Small bowel loops appear relatively collapsed. 2. No change in significant right-sided hydroureteronephrosis Evaluated patient's past history notable for hepatitis C that was treated in total and he was told that it was cured., Also noting that he had elevated PSA but was treated by urologist with prostate biopsy that showed no cancer.. Patient was an 18-year smoker but stopped in his early 30s. He has had 1 e pisode of hypertension being well up above 200 has been taking lisinopril, but blood pressure has been doing so well he is cut it down to only taking it twice a week. Through history and exam cannot find a reason for this sudden significant abdominal pain with constipation. PLAN. So after talking with the ER physicians do agree we need to place him in I will keep him just on small amount of clear liquids bowel rest, see if we can get the patient to start to have bowel movements on his own if not may have to consider a general surgery consult for possible cleaning him out, unsure if the right kidney is causing this pain as the pain is diffuse and not particularly in 1 area and not completely with right CVA tenderness only. From exam with abdominal pain being completely tender very little right-sided CVA tenderness compared to the left, question whether this is a colitis underlying may be a diverticulitis that was not seen on the CAT scan, will collect stool specimen looking for infectious organisms and also for occult blood patient is noted that though to have internal hemorrhoids. [facility] Disclaimer: The information contained in this section may have been updated after the patient was seen, as this information can be updated by other users. Medical History (Updated 09/29/24 @ 14:41 by Costa Velez MD) Hypertension Patient new to facility Contact dermatitis Joint pain Hypertensive encephalopathy syndrome Encephalopathy Subcutaneous nodule of left thumb Tobacco dependence due to cigarettes Pain of left thumb Heberden's nodes of left hand Poison rashida dermatitis Shoulder pain, bilateral Fatigue Hydronephrosis Elevated PSA Hep C w/o coma, chronic Surgical History (Updated 09/29/24 @ 03:42 by Edward Cornelius APRN) H/O prostate biopsy History of hip replacement Social History (Updated 09/29/24 @ 03:43 by Edward Cornelius APRN) Smoking Status: Former smoker second hand exposure: Yes alcohol intake: current substance use type: marijuana current occupational status: employed Travel in the last 8 weeks: Inside the [place] household members: spouse housing: house current occupational exposures/hazards: No caffeine: Yes Have you lived/traveled outside [place] in past 30 days?: No Contact w/someone who lives/traveled outside US past 30 days?: No Exposure to someone with infectious disease in past 14 days?: No Do you have a fever (greater than 100.4 F or 38 C)?: No Have you tested positive for COVID-19: No Exposed to someone with COVID-19 in past 14 days?: No Do you have a sore throat?: No Do you have a cough?: No Do you have any weakness?: No Are you experiencing any nausea/vomitting?: No Do you have any diarrhea?: No Are you experiencing any unusual bleeding?: No Do you have any muscle aches/pain?: No Do you have any abdominal pain?: No Are you experiencing loss of taste or smell?: No Other Medical History Have you received the Flu Vaccine for this season: Yes Have you received the Pneumonia Vaccine: Yes Review of Systems Review of Systems Review of systems:: pertinent systems reviewed and negative unless documented below Review of systems (narrative): Patient is good historian alert and oriented Constitutional Constitutional: Reports as per HPI and Reports poor appetite Eyes Eyes: Reports as per HPI ENT Ears, Nose, Mouth, and Throat: Reports as per HPI *Cardiovascular Cardiovascular: Reports as per HPI Comments: Patient denies any episodes of chest pain *Respiratory Comments: Patient denies any shortness of breath *Gastrointestinal Gastrointestinal: Reports as per HPI, Reports abdominal pain, Reports constipation and Reports nausea *Genitourinary Genitourinary: Reports as per HPI *Musculoskeletal Musculoskeletal: Reports as per HPI Integumentary/Breasts Skin/Breast: Reports as per HPI *Neurologic Neurologic: Reports as per HPI Psychiatric Psychiatric: Reports as per HPI Endocrine Endocrine: Reports as per HPI Hematologic/Lymphatic Hematologic/Lymphatic: Reports as per HPI Allergic/Immunologic Allergic/Immunologic: Reports as per HPI Meds Home Medications and Allergies Home Medications ?Medication ?Instructions ?Recorded ?Confirmed ?Type colchicine 0.6 mg tablet 0.6 mg PO BID 09/29/24 09/29/24 History New Prescriptions to Start Prescriptions: Allergies Allergy/AdvReac Type Severity Reaction Status Date / Time prochlorperazine (From Allergy Other Verified 09/29/24 02:29 Compazine) Exam Data for Last 24 hours Vital signs and Labs for Last 24 Hours: Temp Pulse Resp BP Pulse Ox O2 Del Method 98.9 F 75 18 135/81 95 Room Air 09/29/24 02:01 09/29/24 02:01 09/29/24 02:01 09/29/24 02:01 09/29/24 01:46 09/29/24 03:00 Laboratory Results - last 24 hr 09/28/24 22:53: WBC 13.1 H, RBC 5.46, Hgb 17.3, Hct 48.6, MCV 89.0, MCH 31.7 H, MCHC 35.6 H, RDW 13.5, Plt Count 206, MPV 11.1 H, Neut % (Auto) 67.0, Lymph % (Auto) 22.7, [place] % (Auto) 8.9, Eos % (Auto) 0.6, Baso % (Auto) 0.4, Neut # (Auto) 8.8 H, Lymph # (Auto) 3.0, [place] # (Auto) 1.2 H, Eos # (Auto) 0.1, Baso # (Auto) 0.1, Sodium 137, Potassium 4.0, Chloride 98, Carbon Dioxide 24, Anion Gap 19.0 H, BUN 14, Creatinine 1.10 D, Estimated Creat Clear 63, Estimated GFR 66, Est GFR ( Amer) 80 D, Glucose 110 H, Lactate 1.7, Calcium 10.6 H, Total Bilirubin 1.8 H, AST 46, ALT 24, Alkaline Phosphatase 91, Total Protein 8.5 H, Albumin 5.3 H D, Globulin 3.2, Albumin/Globulin Ratio 1.7, Lipase 95 09/28/24 23:49: Urine Color Yellow, Urine Appearance Clear, Urine pH 6.0, Ur Specific [place] >= 1.030, Urine Protein Negative, Urine Glucose (UA) Negative, Urine Ketones 3+, Urine Blood Negative, Urine Nitrate Negative, Urine Bilirubin 2+ A, Urine Urobilinogen 0.2, Ur Leukocyte Esterase Negative, Urine RBC None, Urine WBC Occasional, Ur Squamous Epith Cells Occasional, Urine Bacteria Trace, Urine Mucus 1+ I & O for Last 24 hours: Intake & Output 09/26/24 09/27/24 09/28/24 09/29/24 05:59 05:59 05:59 05:59 Weight 157 lb Radiology Reports for the Last 24 Hours: 1. Significant fluid distension of the colon without a focal point of obstruction identified, appearance suggestive of diarrheal state. Small bowel loops appear relatively collapsed. 2. No change in significant right-sided hydroureteronephrosis Constitutional Constitutional: moderate distress (Fairly comfortable when lying still on his back after medication but with any movement increases immensely was not time 10 out of 10), thin and cooperative *Routine HEENT Exam Head: Present normocephalic and atraumatic Eye: Present EOMI and PERRL ENT: Present mucous membranes moist *Routine Neck Exam Neck: Present supple and full ROM Routine Chest/Breast/Axilla Exam Comments: Patient denies any chest wall pain no difficulty on deep breath *Routine Respiratory Exam Respiratory: Present CTA bilaterally, normal respiratory effort, able to speak in complete sentences and symmetric chest movement *Routine Cardiovascular Exam Cardiovascular: Present RRR, Normal S1 and Normal S2 *Routine Abdominal Exam Abdominal: Present tenderness (Tenderness severe kind of like 3 bands across his abdomen lower middle and upper. Right lower quadrant most tender) Comments: Examination of the skin shows no sign of rash no sign of injury check for CVA tenderness very trace tenderness to left CVA a little bit more on right CVA on tapping but not really significant there was no wincing no indication that the pain was troublesome *Routine Rectal Exam Rectal:: deferred *Routine Genitalia Exam Genitalia:: deferred *Routine Extremities Exam Extremities: Present normal capillary refill Comments: Extremity exam is negative no signs of decreased range of motion did have a history of a repair of the left clavicle in the distant past there is no decreased motion of that shoulder. All joints have decent range of motion Routine Back/Spine/Pelvis Exam Back/Spine: Present full ROM and CVA tenderness (Mild CVA tenderness on right compared to left) Comments: Examination of the back and flanks he no signs of bruising *Routine Skin Exam Skin: Present intact, warm and normal turgor *Routine Neurological Exam Neurological: Present alert, oriented X3, CN II-XII intact and moving all extremities Routine Psychiatric Exam Psychiatric: Present normal affect, normal thought process, cooperative, good insight and good judgment H&P: Result Impressions 1. Abdominal pain with constipation for 3 days for unknown cause., Question small bowel blockage versus diverticulitis versus colitis Imaging and Cardiology CT scan - abdomen: Status: image reviewed by me Additional comments: 1. Significant fluid distension of the colon without a focal point of obstruction identified, appearance suggestive of diarrheal state. Small bowel loops appear relatively collapsed. 2. No change in significant right-sided hydroureteronephrosis Assessment and Plan *Assessment and plan (1) Abdominal pain: Status: Acute Qualifiers: Abdominal location: generalized Qualified Code(s): R10.84 - Generalized abdominal pain Category: Medical Code(s): R10.9 - Unspecified abdominal pain (2) Hydronephrosis of right kidney: Status: Acute Category: Medical Code(s): N13.30 - Unspecified hydronephrosis (3) Constipation: Status: Acute Qualifiers: Constipation type: unspecified constipation type Qualified Code(s): K59.00 - Constipation, unspecified Category: Medical Code(s): K59.00 - Constipation, unspecified (4) Elevated white blood cell count: Status: Acute Qualifiers: Leukocytosis type: leukemoid reaction Qualified Code(s): D72.823 - Leukemoid reaction Category: Medical Code(s): D72.829 - Elevated white blood cell count, unspecified Plan Presented with abdominal pain, case discussed with ER physician, request admission for treatment of constipation. Medicine agreed to admit. Does have hydronephrosis as well, less concern for acute process. Recommended follow-up as an outpatient with urology. Problems addressed as follows: 1. Patient has had slowly increasing abdominal discomfort now into severe pain with significant constipation starting on Saturday, scans have not really given a clear picture of why but does show significant amount of stool with dilated loops of bowel but no obvious obstruction, patient is noted for having significant diverticulosis but no diverticulitis has been seen, scans did not mention any thickening of bowel wall. Only notable thing of interest is a fairly significant hydronephrosis of the right kidney which is slightly enlarged, patient has has a history of kidney stones in the past. Plan : Patient is not running a fever at this time white count is only slightly elevated. To debate whether empiric antibiotic by IV should be added. In case there is some missed diverticulitis that is not seen on the scans. Versus some colitis. Will give the bowel rest will allow him to have some clear liquids. Trying to withhold any pain medication but at times the patient's pain was so severe it was required. So to determine next step if not able to improve or to start having regular bowel movements may need to consult and general surgery.. Will try to get a stool specimen to evaluate for any infection's, mucous or white blood cells. The patient is an active 69-year-old of normal body weight and from his history and examining him appears to be quite active. So do not believe this is a result of being sedentary Rounded on patient after nurse practitioner. Personally examined and interviewed patient. Agree with exam findings and care plan as documented. Patient does have some right flank pain. White count elevated at 13. Feels like he needs to have a bowel movement. Given bowel regimen. No nausea or vomiting. Afebrile. Per my review of CT, has dilated loops of bowel with air-fluid levels and dilated collecting system of right kidney consistent with hydronephrosis
[2024-09-29 04:00] VITALS: BP 136/78; PULSE 70; RESP 16; TEMP 37.5; O2SAT 97; BMI 22.4
[2024-09-29 05:16] LABS: HIV Combo NEGATIVE (Negative)
[2024-09-29 08:00] VITALS: BP 138/84; PULSE 72; RESP 18; TEMP 36.7; O2SAT 98
[2024-09-29] MEDS: LEVOFLOXACIN/D5W 750 MG/150 ML 750 MG/150 ML PIGGYBACK 100 MG IV (09:01)
[2024-09-29] MEDS: KETOROLAC 30MG/ML VIAL 30 MG IV ×3 (09:57→22:54)
[2024-09-29] MEDS: SODIUM PHOS/BIPHOSPHATE FLEET 133ML ENEMA 133 ML RC (09:59)
[2024-09-29 10:37] LABS: Adenovirus F 40/41, stool Not Detected (NotDetected); Astrovirus Not Detected (NotDetected); Campylobacter Not Detected (NotDetected); Clostridium Difficile A/B, PCR Not Detected (NotDetected); Cryptosporidium Not Detected (NotDetected); Cyclospora Cayetanesis Not Detected (NotDetected); Entamoeba histolytica Not Detected (NotDetected); Enteroaggregative E coli Not Detected (NotDetected); Enteropathogenic E coli Not Detected (NotDetected); Enterotoxigenic E coli Not Detected (NotDetected); Giardia lamblia Not Detected (NotDetected); Norovirus Not Detected (NotDetected); Plesimonas Shigalloides, PCR Not Detected (NotDetected); Rotavirus A Not Detected (NotDetected); Salmonella, PCR Not Detected (NotDetected); Sapovirus Not Detected (NotDetected); Shiga-like toxin E coli Not Detected (NotDetected); Shigella Enterovasive E coli Not Detected (NotDetected); Vibrio Cholerae Not Detected (NotDetected); Vibrio, PCR Not Detected (NotDetected); Yersinia Entercolitica, PCR Not Detected (NotDetected)
[2024-09-29] MEDS: TAMSULOSIN 0.4MG CAPSULE 0.4 MG PO ×2 (13:00→20:22)
[2024-09-29 13:29] LABS: Occult Blood,Stool Negative (Negative)
--- NOTE | 2024-09-29 14:40 | EXP.ACUTE.PN ---
Subjective *Date: 09/29/24 *Time: 15:18 Interval history: Patient still having to some discomfort on exam this morning, has had some bowel movements however as the day is gone on and feeling some improvement in his distention. No nausea or vomiting. Remains afebrile. On room air. Medical Exam Vital signs and Labs for Last 24 Hours: Vital Signs Temp Pulse Pulse Resp BP BP Pulse Ox 09/29/24 13:00 09/29/24 11:00 09/29/24 08:00 09/29/24 08:00 98.1 F 72 18 138/84 98 09/29/24 07:50 09/29/24 06:48 09/29/24 05:00 09/29/24 04:00 99.5 F 70 16 136/78 97 09/29/24 03:00 09/29/24 02:01 98.9 F 75 18 135/81 09/29/24 01:46 97.9 F 77 20 130/78 95 09/28/24 21:50 98.4 F 84 16 208/115 H 98 O2 Del Method 09/29/24 13:00 Room Air 09/29/24 11:00 Room Air 09/29/24 08:00 Room Air 09/29/24 08:00 Room Air 09/29/24 07:50 Room Air 09/29/24 06:48 Room Air 09/29/24 05:00 Room Air 09/29/24 04:00 Room Air 09/29/24 03:00 Room Air 09/29/24 02:01 Room Air 09/29/24 01:46 Room Air 09/28/24 21:50 Room Air Intake and Output 09/28/24 09/29/24 09/29/24 23:59 07:59 15:59 Intake Total 508 / 508 Output Total 0 / 0 Balance 508 / 508 Intake: Intake, Total IV Amount 508 / 508 0.9 % Sodium Chloride 1000ML 1, 508 / 508 000 ml @ 125 mls/hr IV .Q8H [facility] Rx#:[id number] Output: Output, Urine Amount 0 / 0 Other: Number of Unmeasured Voids 1 Number of Bowel Movements 1 Weight 71.214 kg 71.214 kg Patient Weight 09/29/24 23:59 Weight 71.214 kg Laboratory Results - last 24 hr 09/28/24 22:53: WBC 13.1 H, RBC 5.46, Hgb 17.3, Hct 48.6, MCV 89.0, MCH 31.7 H, MCHC 35.6 H, RDW 13.5, Plt Count 206, MPV 11.1 H, Neut % (Auto) 67.0, Lymph % (Auto) 22.7, [place] % (Auto) 8.9, Eos % (Auto) 0.6, Baso % (Auto) 0.4, Neut # (Auto) 8.8 H, Lymph # (Auto) 3.0, [place] # (Auto) 1.2 H, Eos # (Auto) 0.1, Baso # (Auto) 0.1, Sodium 137, Potassium 4.0, Chloride 98, Carbon Dioxide 24, Anion Gap 19.0 H, BUN 14, Creatinine 1.10 D, Estimated Creat Clear 63, Estimated GFR 66, Est GFR ( Amer) 80 D, Glucose 110 H, Lactate 1.7, Calcium 10.6 H, Total Bilirubin 1.8 H, AST 46, ALT 24, Alkaline Phosphatase 91, Total Protein 8.5 H, Albumin 5.3 H D, Globulin 3.2, Albumin/Globulin Ratio 1.7, Lipase 95, HIV Ag/Ab Combo Qual Negative 09/28/24 23:49: Urine Color Yellow, Urine Appearance Clear, Urine pH 6.0, Ur Specific [place] >= 1.030, Urine Protein Negative, Urine Glucose (UA) Negative, Urine Ketones 3+, Urine Blood Negative, Urine Nitrate Negative, Urine Bilirubin 2+ A, Urine Urobilinogen 0.2, Ur Leukocyte Esterase Negative, Urine RBC None, Urine WBC Occasional, Ur Squamous Epith Cells Occasional, Urine Bacteria Trace, Urine Mucus 1+ 09/29/24 03:35: Stool Occult Blood Negative I & O for Labs for Last 24 Hours: Intake & Output 09/26/24 09/27/24 09/28/24 09/29/24 23:59 23:59 23:59 23:59 Intake Total 508 / 508 Output Total 0 / 0 Balance 508 / 508 Weight 71.214 kg 71.214 kg Constitutional: Present no acute distress and thin Head: Present atraumatic and normocephalic ENT: Present normal exam Respiratory: Present normal respiratory effort; Absent rhonchi, wheezes or crackles Cardiac: Present Reg Rate and Rhythm GI: Present soft, tenderness (Diffuse) and normal bowel sounds; Absent distention Comments:: Right CVA tenderness to percussion, no CVA tenderness on the left Extremities: Present normal inspection and full ROM Skin: Present intact; Absent erythema Neuro: Present Grossly Intact and moves all extremities Assessment and Plan *Assessment and plan (1) Abdominal pain: Status: Acute Qualifiers: Abdominal location: generalized Qualified Code(s): R10.84 - Generalized abdominal pain Category: Medical Code(s): R10.9 - Unspecified abdominal pain (2) Hydronephrosis of right kidney: Status: Acute Category: Medical Code(s): N13.30 - Unspecified hydronephrosis (3) Constipation: Status: Acute Qualifiers: Constipation type: unspecified constipation type Qualified Code(s): K59.00 - Constipation, unspecified Category: Medical Code(s): K59.00 - Constipation, unspecified (4) Hypertension: Status: Acute Qualifiers: Hypertension type: unspecified Qualified Code(s): I10 - Essential (primary) hypertension Category: Medical Code(s): I10 - Essential (primary) hypertension Plan 69-year-old male who presented with abdominal pain. Imaging showed hydronephrosis on the right side but most concerning for dilated loops of bowel with air-fluid levels. No randy obstruction. No acute diverticulitis. Discussed case with ER physician, request admission for treatment of his abdominal pain and probable GI enteritis. Medicine admitted for further management. Concern for CVA tenderness today of increased pathology of the kidney. On broad-spectrum antibiotics with levofloxacin. Continue to observe overnight. Problems addressed as follows: Abdominal pain Constipation Hydronephrosis -Patient has dilated bowel loops. Given enema today. Having bowel movements and feeling some improvement in his discomfort. -No acute diverticulitis on CT per my review. Will cover empirically however with Levaquin 750 mg IV daily -Toradol 30 mg IV every 6 hours as needed for pain, will attempt to avoid opiates due to constipating factor -Pending response to improvement in bowel function, will consider transfer to address the kidney versus discharge home with close outpatient follow-up with urology. As the hydronephrosis is likely chronic, his urine is clear and kidney function is normal, will hold on urgent transfer today. Discussion had with Dr. Steiner again today who recommends outpatient follow-up in the near future to address obstruction but does not see urgent need for transfer given patient's stability and normal kidney function. Initiate tamsulosin 0.4 mg nightly to promote relaxation of ureters and aid in urine draining UPJ restriction insetting of hydronephrosis Full code Regular diet
[2024-09-29 15:49] VITALS: BP 149/90; PULSE 74; RESP 18; TEMP 36.8; O2SAT 98
--- NOTE | 2024-09-29 18:33 | PC.NURSE ---
PT IS RESTING IN BED. ALERT AND ORIENTED X4. TOLERATING REGULAR DIET. PT HAS HAD 2 BOWEL MOVEMENTS THIS SHIFT. MEDICATED PER MAR FOR ABDOMINAL AND BACK DISCOMFORT. LUNG SOUNDS CLEAR. ABDOMEN SOFT/TENDER WITH ACTIVE BOWEL SOUNDS. AMBULATES TO THE BATHROOM AND AROUND THE ROOM. WILL CONTINUE TO MONITOR.
[2024-09-29 20:00] VITALS: BP 141/89; PULSE 74; RESP 16; TEMP 36.7; O2SAT 97
[2024-09-30 04:00] VITALS: BP 164/92; PULSE 90; RESP 18; TEMP 36.7; O2SAT 100; BMI 22.4
--- NOTE | 2024-09-30 04:15 | EXP.EVENT.NO ---
Problem : Patient is now having bowel movements having less abdominal pain but now has complete be able to start to complain of more of right sided CVA tenderness right lower quadrant pain. Which appears to be more related to the right kidney and the ureter . Patient has recently been started on Flomax 0.4., Toradol is noted as helping his pain Exam : With skin abdominal pain is improved but now having more flank pain and CVA tenderness on the right Plan: The Toradol was at 30 mg IV and changing that to 15. Trying to keep the patient from receiving too much Toradol affecting his coagulation factors.. The Toradol seems to work very well. Now that the patient is able to take oral we will also add Tylenol. Patient on the Flomax at 0.4 for a very short period of time usually having to wait a while before increasing to 0.8 there is a small increase in side effects and doing that.. But if unable to clear the ureter to where will flow better transfer would be required will discuss with oncoming doctor whether or not increasing Flomax in a short period of time would be prudent presently will leave at present dose
[2024-09-30] MEDS: KETOROLAC 30MG/ML VIAL 15 MG IV ×3 (04:17→11:54)
[2024-09-30] MEDS: ACETAMINOPHEN 325MG TAB 650 MG PO ×2 (04:18→16:21)
--- NOTE | 2024-09-30 05:18 | PC.NURSE ---
Pt is A&OX4 and has tolerated room air. Lung sounds clear and bowel sounds active. Pt has complained of abdominal pain and back pain and has been medicated per MAR. He has ambulated to the bathroom independently. No complaints at this time,call light within reach.
[2024-09-30 08:00] VITALS: BP 148/86; PULSE 70; RESP 18; TEMP 36.7; O2SAT 97
[2024-09-30] MEDS: LEVOFLOXACIN/D5W 750 MG/150 ML 750 MG/150 ML PIGGYBACK 100 MG IV (08:34)
--- NOTE | 2024-09-30 11:35 | CT_ITS ---
PROCEDURE INFORMATION: Exam: CT Abdomen And Pelvis Without Contrast Exam date and time: 09/30/2024 11:59 AM Age: 69 years old Clinical indication: Abdominal pain; Localized; Lower; Additional info: F/u lower abdominal pain, right flank pain TECHNIQUE: Imaging protocol: Computed tomography of the abdomen and pelvis without contrast. Radiation optimization: All CT scans at this facility use at least one of these dose optimization techniques: automated exposure control; mA and/or kV adjustment per patient size (includes targeted exams where dose is matched to clinical indication); or iterative reconstruction. COMPARISON: CT ABDOMEN PELVIS W CON 09/29/2024 12:00 AM FINDINGS: Liver: Normal. No mass. Gallbladder and biliary ducts: Normal. No calcified stones. No ductal dilation. Pancreas: .Pancreas unremarkable Spleen: The spleen is unremarkable. Adrenal glands: Adrenal glands unremarkable. Kidneys and ureters: Severe right hydronephrosis with demonstration of ureteropelvic junction obstruction. Persistent markedly delayed urogram. Left renal cyst. Perinephric stranding. The amount of perinephric fluid has increased in association with the right kidney. A superimposed infection is suspected. Stomach and bowel: Interim collapse of previously demonstrated fluid-filled large bowel loops. Appendix: No evidence of appendicitis. Intraperitoneal space: Unremarkable. No free air. No significant fluid collection. Vasculature: Unremarkable. No abdominal aortic aneurysm. Lymph nodes: Unremarkable. No enlarged lymph nodes. Urinary bladder: Unremarkable as visualized. Reproductive: Unremarkable as visualized. Bones/joints: Artifact related to arthroplasty limits evaluation of the pelvis. Unchanged. Soft tissues: Unremarkable. IMPRESSION: 1. Severe right hydronephrosis with demonstration of ureteropelvic junction obstruction. Persistent markedly delayed urogram. Findings similar to the previous examination dated 09/29/2024. 2. Perinephric stranding. The amount of perinephric fluid has increased in association with the right kidney. A superimposed infection is suspected. 3. Interim collapse of previously demonstrated fluid-filled large bowel loops. COMMENTS: Consistent with the [employer]'s Incidental Findings Committee white paper (J Am Cookie Radiol 2018): Any incidental renal lesion less than 1 cm or classified as too small to characterize, or any incidental cystic renal lesion characterized as simple-appearing, is likely benign. No follow-up imaging is recommended for these lesions per consensus recommendations based on imaging criteria.
[2024-09-30 12:00] LABS: Basophils % 0.4 % (0.1-2.0); Eosinophils # 0.2 K/mm3 (0.0-0.4); Eosinophils % 1.8 % (0.1-12.0); Hematocrit 41.2 % (42.0-52.0); Hemoglobin 14.5 g/dL (14.1-18.0); Lymphocytes # 2.3 K/mm3 (0.7-4.5); Lymphocytes % 21.9 % (10-50); Mean Corpuscular HGB Conc 35.2 g/dL (31.8-35.4); Mean Corpuscular Volume 88.2 fl (80-94); Mean Platelet Volume 10.1 fl (7.4-10.4); Monocytes # 1.1 K/mm3 (0.1-1.0); Monocytes % 10.4 % (1.7-9.3); Neutrophils # 6.8 K/mm3 (1.8-7.8); Neutrophils % 65.1 % (37.0-80.0); Platelet Count 158 K/mm3 (142-424); Red Blood Count 4.67 M/mm3 (4.60-6.20); White Blood Count 10.5 K/mm3 (4.8-10.8)
[2024-09-30 12:10] LABS: Potassium 3.9 mmoL/L (3.5-5.1)
[2024-09-30 12:11] LABS: Alanine Aminotransferase 15 U/L (12-78); Albumin Level 3.7 g/dl (3.5-5.0); Albumin/Globulin Ratio 1.5 (1.1-1.8); Alkaline Phosphatase 67 U/L (38-126); Anion Gap 12.9 mEq/L (5-15); Aspartate Amino Transferase 28 U/L (17-59); Bilirubin,Total 1.4 mg/dl (0.2-1.3); Blood Urea Nitrogen 18 mg/dl (9-20); Carbon Dioxide 23 mmol/L (22.0-30.0); Chloride 101 mmol/L (98-107); Creatinine Clearance Estimated 69 mL/min (50-200); Estimated Glomerular Filt Rate 83 ml/min (>60); GFR (African American) 101 ML/MIN (>60); Globulin 2.4 g/dL (1.3-3.2); Glucose 87 mg/dl (74-100); Sodium 133 mmol/L (136-145); Total Protein,Serum 6.1 g/dl (6.3-8.2)
[2024-09-30] MEDS: 0.9 % SODIUM CHLORIDE 1000ML 500 ML 999 ML IV (12:16)
[2024-09-30 15:59] VITALS: BP 136/87; PULSE 73; RESP 18; TEMP 36.8; O2SAT 97
[2024-09-30] MEDS: BELLADONNA ALKALOIDS 60 ML ML PO (16:07)
--- NOTE | 2024-09-30 16:16 | P.DS_ITS ---
General Admission date:: 09/29/24 HPI HPI HPI: This patient stated that on the of this month he had eaten some soup that his made that had a lot of whole mushroom, these were store-bought mushrooms. [place] fine that day but on Saturday felt very bad, very constipated bloating with some abdominal discomfort that was getting worse he took laxatives believe or Duca locks and then also MiraLAX. Drink more than a quart of Gatorade he then walked for more than 2 miles was able to have some gas passing and gave him some pain relief allowed him to sleep. On Saturday the problem continued and was progressively worsening repeated the laxatives and actually gave a fleets enema with no relief and came to the emergency room . Per the patient's personal history he normally does not have any significant constipation said maybe once or twice a year he might have to take something for it. Last colonoscopy was done in 2019 just showed a fairly large amount of diverticulosis. Please see emergency room note. But noted for right kidney enlargement with a cyst., Did show air and stool in the colon. CT results: Right hydronephrosis and strandy inflammatory changes surrounding the right kidney. No obstructing renal calculus is identified. The appearance is most suggestive of an infected UPJ obstruction. 2. Hepatic steatosis. 3. Colonic diverticulosis but no evidence of diverticulitis. 4. Trace ascites. So patient went home. Began to have more problems today with increasing amount of pain. He only had 1 small bowel movement with some undigested mushrooms. Came back to the emergency room in severe pain actually had to receive IV opioids for pain relief. He says he is much better with the pain medicine as long as he is laying still but getting up causes pain to return as if it is gas pain. CT scan was repeated on his second visit. That shows a very significant amount of dilated loops of bowel that have air and still a large amount of stool. CT scan was read as follows.. 1. Significant fluid distension of the colon without a focal point of obstruction identified, appearance suggestive of diarrheal state. Small bowel loops appear relatively collapsed. 2. No change in significant right-sided hydroureteronephrosis Evaluated patient's past history notable for hepatitis C that was treated in total and he was told that it was cured., Also noting that he had elevated PSA but was treated by urologist with prostate biopsy that showed no cancer.. Patient was an 18-year smoker but stopped in his early 30s. He has had 1 episode of hypertension being well up above 200 has been taking lisinopril, but blood pressure has been doing so well he is cut it down to only taking it twice a week. Through history and exam cannot find a reason for this sudden significant abdominal pain with constipation. PLAN. So after talking with the ER physicians do agree we need to place him in I will keep him just on small amount of clear liquids bowel rest, see if we can get the patient to start to have bowel movements on his own if not may have to consider a general surgery consult for possible cleaning him out, unsure if the right kidney is causing this pain as the pain is diffuse and not particularly in 1 area and not completely with right CVA tenderness only. From exam with abdominal pain being completely tender very little right-sided CVA tenderness compared to the left, question whether this is a colitis underlying may be a diverticulitis that was not seen on the CAT scan, will collect stool specimen looking for infectious organisms and also for occult blood patient is noted that though to have internal hemorrhoids. Hospital Course Hospital Course Hospital Course: Patrh Pratt is a 69-year-old male who presented with abdominal pain. Imaging showed hydronephrosis on the right side but most concerning for dilated loops of bowel with air-fluid levels. No randy obstruction. No acute diverticulitis. #Right kidney hydronephrosis #Suspected mild right pyelonephritis #Constipation ? Dilated bowel loops, constipation improved with bowel regimen including enema. Patient has had multiple bowel movements with improvement in lower abdominal pain. Repeat CT abdomen reveals near resolution of dilated bowel loops. ? Severe right kidney hydronephrosis is chronic and unchanged based on CT scans. Repeat CT scan today did not reveal evolution of hydronephrosis, continues to reveal UPJ obstruction. ? Kidney function remained stable, creatinine 0.90, BUN 18, making appropriate urine. WBC improved from 13.2-10.5. ? Case was extensively discussed with urology at [facility], Dr. Steiner advised since kidney function is stable and patient is making urine this can be evaluated and managed outpatient in the next 1 to 2 weeks. ? Repeat CT abdomen reveals mild evolution of perinephric stranding suggesting early stages of pyelonephritis. No leukocytosis, vital signs stable, no nausea/vomiting. Treating empirically with Levaquin. ? Patient will call Dr. Steiner's office tomorrow to make an appointment, has previously establish care for prostate biopsy. We will also follow-up with patient to make an appointment with Dr. Izquierdo, which ever is available earlier. ? Discharged with Levaquin for 8 more days, tamsulosin 0.4 mg for UPJ obstruction, tramadol as needed for pain. Exam Data for Last 24 hours Vital signs and Labs for Last 24 Hours: Temp Pulse Resp BP Pulse Ox O2 Del Method 98.2 F 73 18 136/87 97 Room Air 09/30/24 15:59 09/30/24 15:59 09/30/24 15:59 09/30/24 15:59 09/30/24 15:59 09/30/24 15:59 Laboratory Results - last 24 hr 09/30/24 11:46: WBC 10.5, RBC 4.67, Hgb 14.5, Hct 41.2 L, MCV 88.2, MCH 31.0, MCHC 35.2, RDW 13.0, Plt Count 158, MPV 10.1, Neut % (Auto) 65.1, Lymph % (Auto) 21.9, [place] % (Auto) 10.4 H, Eos % (Auto) 1.8, Baso % (Auto) 0.4, Neut # (Auto) 6.8, Lymph # (Auto) 2.3, [place] # (Auto) 1.1 H, Eos # (Auto) 0.2, Baso # (Auto) 0.0, Sodium 133 L, Potassium 3.9, Chloride 101, Carbon Dioxide 23, Anion Gap 12.9, BUN 18 D, Creatinine 0.90, Estimated Creat Clear 69, Estimated GFR 83, Est GFR ( Amer) 101 D, Glucose 87, Calcium 9.0, Total Bilirubin 1.4 H, AST 28 D, ALT 15 D, Alkaline Phosphatase 67, Total Protein 6.1 L D, Albumin 3.7, Globulin 2.4, Albumin/Globulin Ratio 1.5 I & O for Last 24 hours: Intake & Output 09/27/24 09/28/24 09/29/24 09/30/24 23:59 23:59 23:59 23:59 Intake Total 1640 / 1840 1450 / 1450 Output Total 0 / 0 Balance 1640 / 1840 1450 / 1450 Weight 71.214 kg 71.214 kg 71.214 kg Constitutional Constitutional: no acute distress *Routine HEENT Exam Head: Present normocephalic Eye: Present EOMI and PERRL ENT: Present mucous membranes moist *Routine Neck Exam Neck: Present supple; Absent lymphadenopathy *Routine Respiratory Exam Respiratory: Present CTA bilaterally *Routine Cardiovascular Exam Cardiovascular: Present RRR *Routine Abdominal Exam Abdominal: Present soft and normoactive bowel sounds; Absent tenderness Comments: Mild right CVA tenderness. *Routine Extremities Exam Extremities: Absent cyanosis, clubbing or edema *Routine Skin Exam Skin: Present warm; Absent rash *Routine Neurological Exam Neurological: Present alert and oriented X3 Results Data Completed and Pending Labs on day of discharge: Labs from last 24 hours 09/30/24 11:46 WBC 10.5 RBC 4.67 Hgb 14.5 Hct 41.2 L MCV 88.2 MCH 31.0 MCHC 35.2 RDW 13.0 Plt Count 158 MPV 10.1 Neut % (Auto) 65.1 Lymph % (Auto) 21.9 [place] % (Auto) 10.4 H Eos % (Auto) 1.8 Baso % (Auto) 0.4 Neut # (Auto) 6.8 Lymph # (Auto) 2.3 [place] # (Auto) 1.1 H Eos # (Auto) 0.2 Baso # (Auto) 0.0 Sodium 133 L Potassium 3.9 Chloride 101 Carbon Dioxide 23 Anion Gap 12.9 BUN 18 D Creatinine 0.90 Estimated Creat Clear 69 Estimated GFR 83 Est GFR ( Amer) 101 D Glucose 87 Calcium 9.0 Total Bilirubin 1.4 H AST 28 D ALT 15 D Alkaline Phosphatase 67 Total Protein 6.1 L D Albumin 3.7 Globulin 2.4 Albumin/Globulin Ratio 1.5 DS: Diagnosis Discharge Diagnosis (1) Abdominal pain: Status: Acute Code(s): R10.9 - Unspecified abdominal pain Qualifiers: Abdominal location: generalized Qualified Code(s): R10.84 - Generalized abdominal pain (2) Hydronephrosis of right kidney: Status: Acute Code(s): N13.30 - Unspecified hydronephrosis (3) Constipation: Status: Acute Code(s): K59.00 - Constipation, unspecified Qualifiers: Constipation type: unspecified constipation type Qualified Code(s): K59.00 - Constipation, unspecified (4) Hypertension: Status: Acute Code(s): I10 - Essential (primary) hypertension Qualifiers: Hypertension type: unspecified Qualified Code(s): I10 - Essential (primary) hypertension Meds Home Medications and Allergies Home Medications ?Medication ?Instructions ?Recorded ?Confirmed ?Type levofloxacin 750 mg tablet 750 mg PO DAILY 8 days #8 tabs 09/30/24 Rx tamsulosin 0.4 mg capsule 0.8 mg (2 x 0.4 mg) PO HS 30 days 09/30/24 Rx #60 caps tramadol 50 mg tablet 50 mg PO TID PRN pain #9 tabs 09/30/24 Rx New Prescriptions to Start Prescriptions: levofloxacin Linda,Buzz tamsulosin Linda,Buzz tramadol Buzz Mckeon Allergies Allergy/AdvReac Type Severity Reaction Status Date / Time prochlorperazine (From Allergy Other Verified 09/29/24 02:29 Compazine) Discharge Plan Disposition Patient Disposition: Home, Self-Care Condition: Fair Follow up Plan Follow up with: Buzz Izquierdo MD [Staff Physician] - Enter time for follow up (office to call with appointment) Prescriptions/Medication Reconciliation: New tamsulosin 0.4 mg Capsule 0.8 mg PO HS 30 Days Qty: 60 0RF levofloxacin 750 mg tablet 750 mg PO DAILY 8 Days Qty: 8 0RF tramadol 50 mg tablet 50 mg PO TID PRN (Reason: pain) Qty: 9 0RF Discontinued colchicine 0.6 mg tablet 0.6 mg PO BID Problem Reconciliation Problems Reviewed?: Yes Patient Discharge Instructions Patient Instructions: DI for Abdominal Pain-Adult, DI for Constipation Print Language: Sloven[place] Providers Primary Care Provider: Thiago Gregory Admit Provider: Costa Velez Attending Provider: Costa Velez
[2024-09-30] MEDS: TRAMADOL 50MG TABLET 50 MG PO (16:20)
--- NOTE | 2024-10-01 10:15 | SW/DCPLANNER ---
Spoke with patient on the phone. Patient stated that he is doing well as expected. Patient stated that he was able to get his medicine filled at [facility] and has made his follow up appointment for Saturday. Patient stated that he has no concerns or questions at this time. Nurys Maguire
[2024-10-02 13:08] LABS: HCV Ab Reactive (Non Reactive)
== END 2024-09-30 17:30 | disposition home or self-care (01) ==
LOC: ER 09-29 01:35 → 2ND 09-29 02:16
PROVIDERS: Nurse Practitioner Family; Admitting Provider Internal Medicine Adolescent Medicine; Emergency Provider Emergency Medicine; PCP Nurse Practitioner Family; Visit Provider Internal Medicine Adolescent Medicine
DX: R10.84 Generalized abdominal pain (principal); N13.39 Other hydronephrosis; N12 Tubulo-interstitial nephritis, not specified as acute or chronic; K57.90 Diverticulosis of intestine, part unspecified, without perforation or abscess without bleeding; K59.00 Constipation, unspecified; D72.823 Leukemoid reaction; I10 Essential (primary) hypertension; K76.0 Fatty (change of) liver, not elsewhere classified; Z79.899 Other long term (current) drug therapy; Z87.891 Personal history of nicotine dependence
CPT/HCPCS: 36415; 74176; 74177; 80053; 81001; 82272; 83605; 83690; 85025; 86803; 87045; 87389; 87507; 99285; G0328; G0378; J1171; J1885; J1956; J2550; J7030; Q9967

== ENCOUNTER 2024-10-03 02:34 | Emergency (ER) | payer MEDICARE, OTHER, SELFPAY ==
[2024-10-03] VITALS (10 sets, daily range): BP systolic 125–184; BP diastolic 76–105; PULSE 57–96; RESP 18–19; TEMP 36.7–36.8; O2SAT 95–99; BMI 21.9
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
--- NOTE | 2024-10-03 03:17 | CT_ITS ---
PROCEDURE INFORMATION: Exam: CT Abdomen And Pelvis With Contrast Exam date and time: 10/03/2024 3:49 AM Age: 69 years old Clinical indication: Abdominal pain; Additional info: Rlq abd pain, R flank pain, fever TECHNIQUE: Imaging protocol: Computed tomography of the abdomen and pelvis with contrast. Radiation optimization: All CT scans at this facility use at least one of these dose optimization techniques: automated exposure control; mA and/or kV adjustment per patient size (includes targeted exams where dose is matched to clinical indication); or iterative reconstruction. Contrast material: ISOVUE; Contrast volume: 75 ml; Contrast route: IV; COMPARISON: CT ABDOMEN PELVIS WO CON 09/30/2024 11:59 AM FINDINGS: Lungs: Basilar scarring/atelectasis. Heart: Base of heart is unremarkable as visualized. Liver: Normal. No mass. Gallbladder and biliary ducts: Normal. No calcified stones. No ductal dilation. Pancreas: Normal. No ductal dilation. Spleen: Normal. No splenomegaly. Adrenal glands: Normal. No mass. Kidneys and ureters: Again demonstrated is right hydronephrosis and right pelviectasis with abrupt caliber change of the ureteropelvic junction. Mild delayed cortical enhancement/delayed urogram of the right kidney is seen. Asymmetric increase in right perinephric stranding. Benign left renal cyst. Stomach and bowel: Diverticulosis without evidence of diverticulitis. Heavy colonic stool burden. Fecalization of the distal bowel. Multiple loops of prominent small bowel with fluid distension is seen. Pelvic bowel is not well assessed due to metallic streak artifact. Appendix: No evidence of appendicitis. Intraperitoneal space: Unremarkable. No free air. No significant fluid collection. Vasculature: Atherosclerotic disease, moderate extending into the major branches of the lower abdomen and upper extremities. Lymph nodes: Numerous prominent pericaval lymph nodes not reaching size criteria for pathology. Urinary bladder: Urinary bladder is partially assessed due to metallic streak artifact, within these limitations no significant abnormality. Reproductive: Prostate is partially evaluated due to metallic streak artifact, central dystrophic calcifications. Bones/joints: Diffuse degenerative change of the visualized osseous structures. Partially evaluated bilateral total hip arthroplasties. Soft tissues: Unremarkable. IMPRESSION: 1. Stable severe right hydronephrosis and right pelviectasis to the level of the ureteropelvic junction. Again demonstrated is asymmetric right perinephric stranding as well as delayed nephrogram of the right kidney. Findings are concerning for superimposed infection. 2. Findings which can be seen in enteritis. Correlate clinically. 3. Likely constipation. COMMENTS: Consistent with the [employer]'s Incidental Findings Committee white paper (J Am Cookie Radiol 2018): Any incidental renal lesion less than 1 cm or classified as too small to characterize, or any incidental cystic renal lesion characterized as simple-appearing, is likely benign. No follow-up imaging is recommended for these lesions per consensus recommendations based on imaging criteria.
[2024-10-03 03:24] LABS: Basophils # 0.1 K/mm3 (0-0.2); Basophils % 0.5 % (0.1-2.0); Eosinophils # 0.4 K/mm3 (0.0-0.4); Eosinophils % 3.4 % (0.1-12.0); Hematocrit 44.6 % (42.0-52.0); Hemoglobin 15.4 g/dL (14.1-18.0); Lymphocytes # 3.2 K/mm3 (0.7-4.5); Lymphocytes % 29.6 % (10-50); Mean Corpuscular HGB Conc 34.5 g/dL (31.8-35.4); Mean Corpuscular Hemoglobin 30.7 pg (27.0-31.2); Mean Platelet Volume 10.8 fl (7.4-10.4); Monocytes # 0.8 K/mm3 (0.1-1.0); Monocytes % 7.7 % (1.7-9.3); Neutrophils # 6.2 K/mm3 (1.8-7.8); Neutrophils % 58.2 % (37.0-80.0); Platelet Count 213 K/mm3 (142-424); Red Blood Count 5.01 M/mm3 (4.60-6.20); Red Cell Distribution Width 13.1 % (11.5-17.5); White Blood Count 10.7 K/mm3 (4.8-10.8)
[2024-10-03 03:26] LABS: Chloride 101 mmol/L (98-107)
[2024-10-03 03:27] LABS: Albumin Level 4.4 g/dl (3.5-5.0); Potassium 3.8 mmoL/L (3.5-5.1); Sodium 139 mmol/L (136-145)
[2024-10-03 03:29] LABS: Alanine Aminotransferase 20 U/L (12-78); Anion Gap 14.8 mEq/L (5-15); Aspartate Amino Transferase 27 U/L (17-59); Blood Urea Nitrogen 13 mg/dl (9-20); Carbon Dioxide 27 mmol/L (22.0-30.0); Creatinine Clearance Estimated 69 mL/min (50-200); Estimated Glomerular Filt Rate 96 ml/min (>60); GFR (African American) 116 ML/MIN (>60)
[2024-10-03 03:30] LABS: Albumin/Globulin Ratio 1.5 (1.1-1.8); Alkaline Phosphatase 71 U/L (38-126); Bilirubin,Total 0.7 mg/dl (0.2-1.3); Calcium 9.3 mg/dl (8.4-10.2); Glucose 106 mg/dl (74-100); Total Protein,Serum 7.4 g/dl (6.3-8.2)
[2024-10-03] MEDS: MORPHINE 4MG/ML SYRINGE 4 MG IV (03:38)
[2024-10-03] MEDS: KETOROLAC 30MG/ML VIAL 15 MG IV (03:38)
[2024-10-03] MEDS: ACETAMINOPHEN 500MG TAB 1000 MG PO (03:38)
[2024-10-03] MEDS: IOPAMIDOL-370 (76%);100ML BOTTLE 75 ML IV (03:49)
[2024-10-03] MEDS: SODIUM CHLORIDE 0.9% 10ML SYR (RAD ONLY) 10 ML IV (03:49)
[2024-10-03 04:05] LABS: HIV Combo NEGATIVE (Negative)
[2024-10-03 04:08] LABS: RSV Rapid Ab Screen Negative (Negative)
[2024-10-03 04:09] LABS: Coronavirus 19, PCR Not Detected (NotDetected); Influenza A, PCR Not Detected (NotDetected); Influenza B, PCR Not Detected (NotDetected)
[2024-10-03 04:44] LABS: Appearance,Urine CLEAR (Clear); Bilirubin,Urine Negative (Negative); Blood, Urine TRACE-I (Negative); Color,Urine YELLOW (Yellow); Glucose,Urine (UA) Negative (Negative); Ketones,Urine Negative (Negative); Leukocyte Esterase,Urine 1+ (Negative); Microscopic, Urine URINE MICROSCOPIC (MICROSCOPIC); Nitrate,Urine Negative (Negative); Protein,Urine Negative (Negative); Specific Gravity, Urine 1.015 (1.005-1.030); Urobilinogen,Urine 0.2 EU/dl (0.2)
[2024-10-03 04:56] LABS: Bacteria,Urine Trace /lpf
[2024-10-03] MEDS: CEFTRIAXONE 1 GM 1 GM in 0.9 % SODIUM CHLORIDE 50 ML IV (06:55)
--- NOTE | 2024-10-03 07:28 | PC.NURSE ---
hotel or motel cleaning supervisor marline Calvo relayed brief rundown on pt states they reached out to [facility] for urology and we are waiting on a call back
--- NOTE | 2024-10-03 08:00 | PC.NURSE ---
ROUNDED ON PT HE IS ASLEEP IN BED NO NEEDS AT THIS TIME
--- NOTE | 2024-10-03 08:02 | PC.NURSE ---
CALLED [facility] FOR AN UPDATE ABOUT [facility] SHE STATES THEY ARE STILL WAITING TO HEAR BACK FROM [facility] WHETHER THEY HAVE UROLOGY THIS WEEKEND OR NOT
--- NOTE | 2024-10-03 08:30 | PC.NURSE ---
spoke with [facility], [place] does not have urology until Saturday
--- NOTE | 2024-10-03 08:49 | PC.NURSE ---
Dr Sands on the phone with for transfer at [phone]
--- NOTE | 2024-10-03 08:54 | PC.NURSE ---
Dr Mendenhall has accepted patient at [facility] [id number] Patient aware. Dr zuleta spoke with patient
--- NOTE | 2024-10-03 09:05 | PC.NURSE ---
CALLED EMS AND NOTIFIED THEM OF TRANSFER TO [facility] AT FOR UROLOGY
[2024-10-06 21:34] LABS: HCV Ab Reactive (Non Reactive)
== END 2024-10-03 10:21 | disposition other institution (70) ==
PROVIDERS: Emergency Provider Emergency Medicine
DX: N10 Acute pyelonephritis (principal); N13.30 Unspecified hydronephrosis; R10.31 Right lower quadrant pain; R50.9 Fever, unspecified; M54.9 Dorsalgia, unspecified
CPT/HCPCS: 74177; 80053; 81001; 85025; 86803; 87040; 87086; 87389; 87636; 87807; 96365; 96374; 96375; 99285; J0696; J1885; J2270; Q9967

== ENCOUNTER 2024-12-01 04:47 | Emergency (ER) | payer MEDICARE, OTHER, SELFPAY ==
[2024-12-01] VITALS (8 sets, daily range): BP systolic 158–216; BP diastolic 89–127; PULSE 69–90; RESP 20; TEMP 36.7–36.8; O2SAT 97–98; BMI 22.2
--- NOTE | 2024-12-01 05:01 | ED_ITS ---
Discharge Plan Disposition Patient Disposition: Xfer Short-Term Hosp Chief Complaint: Urogenital-Male Prescriptions Prescriptions: No Action tamsulosin 0.4 mg Capsule 0.8 mg PO HS 30 Days Qty: 60 0RF tramadol 50 mg tablet 50 mg PO TID PRN (Reason: pain) Qty: 9 0RF cefdinir 300 mg capsule 300 mg PO BID 8 Days Qty: 16 0RF Referrals Follow up/Referrals: Provider,Referral, [Primary Care Provider] - See instructions Clinical Impressions Clinical Impression: Bilateral hydronephrosis, Acute urinary obstruction, Hematuria Instructions Patient Instructions: DI for Urinary Tract Infection (UTI), DI for Urinary Tract Infection in Children Print Language Print Language: Mauritanian Discharge ED Provider: Mateusz Bonilla General Adult HPI <Shimon Horvath MD - Last Filed: 12/01/24 07:01> General Chief complaint: Urogenital-Male Stated complaint: pain, bleeding when urinating Time Seen by Provider: 12/01/24 04:50 History of Present Illness HPI narrative: 69-year-old male with 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 He had a urologic intervention yesterday. Attempting to explore/stent his right ureter but after approximately 45 minutes of trying they were unsuccessful in accessing the ureter, according to the patient/. He had some bleeding and pain after the procedure but it has worsened. He now has severe pain, passing large clots. No blood thinners. Patient reports pain is in his penis, bladder. No significant pain in his back. Related Data Previous Rx's ?Medication ?Instructions ?Recorded tamsulosin 0.4 mg capsule 0.8 mg (2 x 0.4 mg) PO HS 30 days 09/30/24 #60 caps tramadol 50 mg tablet 50 mg PO TID PRN pain #9 tabs 09/30/24 cefdinir 300 mg capsule 300 mg PO BID 8 days #16 caps 10/01/24 Allergies Allergy/AdvReac Type Severity Reaction Status Date / Time prochlorperazine (From Allergy Other Verified 09/29/24 02:29 Compazine) [facility] <Shimon Horvath MD - Last Filed: 12/01/24 07:01> [facility] Disclaimer: The information contained in this section may have been updated after the patient was seen, as this information can be updated by other users. Medical History (Updated 12/01/24 @ 08:25 by Mateusz Bonilla MD) Hypertension Patient new to facility Contact dermatitis Joint pain Hypertensive encephalopathy syndrome Encephalopathy Subcutaneous nodule of left thumb Tobacco dependence due to cigarettes Pain of left thumb Heberden's nodes of left hand Poison rashida dermatitis Shoulder pain, bilateral Fatigue Hydronephrosis Elevated PSA Hep C w/o coma, chronic Surgical History (Updated 09/29/24 @ 03:42 by Edward Cornelius APRN) H/O prostate biopsy History of hip replacement Social History (Updated 09/29/24 @ 03:43 by Edward Cornelius APRN) Smoking Status: Never smoker second hand exposure: Yes alcohol intake: current substance use type: marijuana current occupational status: employed Travel in the last 8 weeks: Inside the [place] household members: spouse housing: house current occupational exposures/hazards: No caffeine: Yes Have you lived/traveled outside [place] in past 30 days?: No Contact w/someone who lives/traveled outside US past 30 days?: No Exposure to someone with infectious disease in past 14 days?: No Do you have a fever (greater than 100.4 F or 38 C)?: No Have you tested positive for COVID-19: No Exposed to someone with COVID-19 in past 14 days?: No Do you have a sore throat?: No Do you have a cough?: No Do you have any weakness?: No Do you have any diarrhea?: No Are you experiencing any unusual bleeding?: Yes Do you have any muscle aches/pain?: No Do you have any abdominal pain?: No Are you experiencing loss of taste or smell?: No Other Medical History Have you received the Flu Vaccine for this season: No Have you received the Pneumonia Vaccine: No <Shimon Horvath MD - Last Filed: 12/01/24 07:01> ROS Obtained: Yes All systems reviewed & no additional complaints except as documented Physical Exam <Shimon Horvath MD - Last Filed: 12/01/24 07:01> General General appearance: alert and in distress Head Head exam: atraumatic and normocephalic Eye Eye exam: Present normal appearance, PERRL and EOMI ENT ENT exam: Present normal oropharynx and normal external ear exam Neck Neck exam: Present normal inspection and full ROM Chest Chest inspection: Present normal inspection and symmetric chest wall rise; Absent tenderness Respiratory Respiratory exam: Present normal lung sounds bilaterally; Absent respiratory distress Cardiovascular Cardiovascular exam: Present regular rate and normal rhythm Abdominal Exam Abdominal exam: Present soft and tenderness (Suprapubic); Absent distention or guarding Extremities Exam Extremities exam: Present normal inspection; Absent edema or joint swelling Back Exam Back exam: Present normal inspection; Absent tenderness Neurological Exam Neurological exam: Present alert and oriented X3; Absent motor sensory deficit Psychiatric Psychiatric exam: Present normal affect and normal mood Skin Skin exam: Present warm, dry and normal color Lymphatic Lymphatic Findings: no adenopathy Medical Decision Making <Shimon Horvath MD - Last Filed: 12/01/24 07:01> Medical Records Medical records reviewed: Yes I reviewed the patient's medical records. Screening: Per USPSTF and CDC recommendations, given the prevalence of disease in our region, it is our hospital?s policy to screen for HIV and viral Hepatitis for all patients aged 18 and over and those with ongoing risk factors. Pérez Inquiry Pt receiving controlled substance: No Pérez was queried for this patient: No Vital Signs: 12/01/24 04:49 Temperature 98.1 F Temperature Source Oral Pulse Rate [Left Radial] 90 Respiratory Rate 20 Blood Pressure [Right Arm] 216/127 H Blood Pressure Mean [Right Arm] 156 Blood Pressure Source [Right Arm] Automatic Cuff Blood Pressure Position [Right Arm] Sitting 02 Sat by Pulse Oximetry 98 Oxygen Delivery Method Room Air Lab Data Lab results reviewed: Yes I reviewed the patient's lab results. Lab Results 12/01/24 04:56: WBC 9.3, RBC 4.92, Hgb 15.6, Hct 45.6, MCV 92.7, MCH 31.7 H, MCHC 34.2, RDW 13.2, Plt Count 218, MPV 10.9 H, Neut % (Auto) 57.3, Lymph % (Auto) 29.2, [place] % (Auto) 8.5, Eos % (Auto) 4.3, Baso % (Auto) 0.4, Neut # (Auto) 5.3, Lymph # (Auto) 2.7, [place] # (Auto) 0.8, Eos # (Auto) 0.4, Baso # (Auto) 0.0, PT 10.0, INR 0.90, Sodium 141, Potassium 3.8, Chloride 102, Carbon Dioxide 30, Anion Gap 12.8, BUN 14, Creatinine 1.00, Estimated Creat Clear 68, Estimated GFR 74, Est GFR ( Amer) 89, Glucose 117 H, Calcium 9.9, Total Bilirubin 1.1, AST 32, ALT 23, Alkaline Phosphatase 69, Total Protein 8.2, A lbumin 5.2 H, Globulin 3.0, Albumin/Globulin Ratio 1.7 12/01/24 05:07: Urine Color Red, Urine Appearance Turbid, Urine pH 7.0, Ur Specific [place] 1.020, Urine Protein 3+ A, Urine Glucose (UA) Trace, Urine Ketones 1+, Urine Blood 3+ A, Urine Nitrate Positive A, Urine Bilirubin Negative, Urine Urobilinogen 4.0, Ur Leukocyte Esterase 1+ A, Urine RBC Tntc, Urine WBC 5-10, Ur Squamous Epith Cells 3-5, Urine Bacteria 1+ 12/01/24 07:02: Urine Color Red, Urine Appearance Cloudy, Urine pH 7.0, Ur Specific [place] 1.015, Urine Protein 3+ A, Urine Glucose (UA) Negative, Urine Ketones 1+, Urine Blood 3+ A, Urine Nitrate Positive A, Urine Bilirubin Negative, Urine Urobilinogen 2.0, Ur Leukocyte Esterase 1+ A, Urine RBC Tntc, Urine WBC 20-50, Ur Squamous Epith Cells Occasional, Urine Bacteria 1+ 12/01/24 04:56 12/01/24 04:56 Orders (Tests/Meds): ED MEDICATIONS Generic Name Dose Route Start Last Admin Trade Name Freq PRN Reason Stop Dose Admin Sodium Chloride 3,000 mls @ 999 mls/hr 12/01/24 06:51 Sodium Chloride 0.9% Irrigation 3,000ml Bag IR 12/31/24 06:50 NEEDED PRN CONTINUOUS BLADDER IRRIGATION Ceftriaxone Sodium 1 gm/ 50 mls @ 100 mls/hr 12/01/24 07:45 12/01/24 07:57 Sodium Chloride IV 12/11/24 07:44 100 mls/hr Q24H ELIZABETH Administration Discontinued Medications Generic Name Dose Route Start Last Admin Trade Name Freq PRN Reason Stop Dose Admin Hydromorphone HCl 0.5 mg 12/01/24 06:50 12/01/24 06:54 Hydromorphone 2mg/Ml Syringe IV 12/01/24 06:51 0.5 mg ONCE ONE Administration Iopamidol 75 ml 12/01/24 06:39 12/01/24 06:39 Iopamidol-370 (76%);100ml Bottle IV 12/01/24 06:40 75 ml ONCE ONE Administration Morphine Sulfate 4 mg 12/01/24 05:01 12/01/24 05:09 Morphine 4mg/Ml Syringe IV 12/01/24 05:02 4 mg ONCE ONE Administration Morphine Sulfate 4 mg 12/01/24 06:05 12/01/24 06:06 Morphine 4mg/Ml Syringe IV 12/01/24 06:06 4 mg ONCE ONE Administration Sodium Chloride 10 ml 12/01/24 06:39 12/01/24 06:39 Sodium Chloride 0.9% 10ml Syr (Rad Only) IV 12/01/24 06:40 10 ml ONCE ONE Administration ORDERS Category Date Time Status CT abdomen pelvis w con Stat Cat Scan 12/01/24 05:20 Completed CBC w/Auto Diff [Complete Blood Count Auto Diff] Stat Lab 12/01/24 04:56 Completed CMP [Comprehensive Metabolic Panel] Stat Lab 12/01/24 04:56 Completed INR [Prothrombin Time INR] Stat Lab 12/01/24 04:56 Completed UA [Urinalysis and Microscopic] Stat Lab 12/01/24 05:07 Completed UA [Urinalysis and Microscopic] Stat Lab 12/01/24 07:02 Completed Urine Culture Stat Micro 12/01/24 05:07 Received Medical Decision Narrative: 69-year-old male with history of right-sided hydronephrosis presents with gross hematuria, passage of clots, severe lower abdominal/penile pain since attempted urologic procedure yesterday at [facility]. History was obtained via interactive discussion with patient, family, chart review. On arrival, patient is [afebrile, hemodynamically stable, satting appropriately, alert, oriented x4, GCS 15], moving all extremities spontaneously. Full physical exam performed and significant for suprapubic tenderness Differential includes but is not limited to ureteral/bladder perforation, bladder obstruction, coagulopathy, UTI. Patient was given morphine x 2 for symptomatic management and correction of underlying abnormalities. Workup initiated including UA, CBC CMP INR CT abdomen pelvis IV contrast. On re-evaluation, patient is in significant pain Laboratory workup independently interpreted by me and significant for urine with too numerous to count WBCs, 5-10 WBCs, 1+ bacteria. Nitrate positive. Imaging independently interpreted by me and significant bilateral hydronephrosis, no evidence of ureteral perforation, though difficult to see rarely in the pelvis artifact from hip replacements. See radiology read for full review of final results. At this time care handed off to oncoming physician. <Mateusz Bonilla MD - Last Filed: 12/01/24 08:25> Vital Signs: 12/01/24 04:49 Temperature 98.1 F Temperature Source Oral Pulse Rate [Left Radial] 90 Respiratory Rate 20 Blood Pressure [Right Arm] 216/127 H Blood Pressure Mean [Right Arm] 156 Blood Pressure Source [Right Arm] Automatic Cuff Blood Pressure Position [Right Arm] Sitting 02 Sat by Pulse Oximetry 98 Oxygen Delivery Method Room Air Lab Data Lab Results 12/01/24 04:56: WBC 9.3, RBC 4.92, Hgb 15.6, Hct 45.6, MCV 92.7, MCH 31.7 H, MCHC 34.2, RDW 13.2, Plt Count 218, MPV 10.9 H, Neut % (Auto) 57.3, Lymph % (Auto) 29.2, [place] % (Auto) 8.5, Eos % (Auto) 4.3, Baso % (Auto) 0.4, Neut # (Auto) 5.3, Lymph # (Auto) 2.7, [place] # (Auto) 0.8, Eos # (Auto) 0.4, Baso # (Auto) 0.0, PT 10.0, INR 0.90, Sodium 141, Potassium 3.8, Chloride 102, Carbon Dioxide 30, Anion Gap 12.8, BUN 14, Creatinine 1.00, Estimated Creat Clear 68, Estimated GFR 74, Est GFR ( Amer) 89, Glucose 117 H, Calcium 9.9, Total Bilirubin 1.1, AST 32, ALT 23, Alkaline Phosphatase 69, Total Protein 8.2, A lbumin 5.2 H, Globulin 3.0, Albumin/Globulin Ratio 1.7 12/01/24 05:07: Urine Color Red, Urine Appearance Turbid, Urine pH 7.0, Ur Specific [place] 1.020, Urine Protein 3+ A, Urine Glucose (UA) Trace, Urine Ketones 1+, Urine Blood 3+ A, Urine Nitrate Positive A, Urine Bilirubin Negative, Urine Urobilinogen 4.0, Ur Leukocyte Esterase 1+ A, Urine RBC Tntc, Urine WBC 5-10, Ur Squamous Epith Cells 3-5, Urine Bacteria 1+ 12/01/24 07:02: Urine Color Red, Urine Appearance Cloudy, Urine pH 7.0, Ur Specific [place] 1.015, Urine Protein 3+ A, Urine Glucose (UA) Negative, Urine Ketones 1+, Urine Blood 3+ A, Urine Nitrate Positive A, Urine Bilirubin Negative, Urine Urobilinogen 2.0, Ur Leukocyte Esterase 1+ A, Urine RBC Tntc, Urine WBC 20-50, Ur Squamous Epith Cells Occasional, Urine Bacteria 1+ Orders (Tests/Meds): ED MEDICATIONS Generic Name Dose Route Start Last Admin Trade Name Alanna PRN Reason Stop Dose Admin Sodium Chloride 3,000 mls @ 999 mls/hr 12/01/24 06:51 Sodium Chloride 0.9% Irrigation 3,000ml Bag IR 12/31/24 06:50 NEEDED PRN CONTINUOUS BLADDER IRRIGATION Ceftriaxone Sodium 1 gm/ 50 mls @ 100 mls/hr 12/01/24 07:45 12/01/24 07:57 Sodium Chloride IV 12/11/24 07:44 100 mls/hr Q24H ELIZABETH Administration Discontinued Medications Generic Name Dose Route Start Last Admin Trade Name Aalnna PRN Reason Stop Dose Admin Hydromorphone HCl 0.5 mg 12/01/24 06:50 12/01/24 06:54 Hydromorphone 2mg/Ml Syringe IV 12/01/24 06:51 0.5 mg ONCE ONE Administration Iopamidol 75 ml 12/01/24 06:39 12/01/24 06:39 Iopamidol-370 (76%);100ml Bottle IV 12/01/24 06:40 75 ml ONCE ONE Administration Morphine Sulfate 4 mg 12/01/24 05:01 12/01/24 05:09 Morphine 4mg/Ml Syringe IV 12/01/24 05:02 4 mg ONCE ONE Administration Morphine Sulfate 4 mg 12/01/24 06:05 12/01/24 06:06 Morphine 4mg/Ml Syringe IV 12/01/24 06:06 4 mg ONCE ONE Administration Sodium Chloride 10 ml 12/01/24 06:39 12/01/24 06:39 Sodium Chloride 0.9% 10ml Syr (Rad Only) IV 12/01/24 06:40 10 ml ONCE ONE Administration ORDERS Category Date Time Status CT abdomen pelvis w con Stat Cat Scan 12/01/24 05:20 Completed CBC w/Auto Diff [Complete Blood Count Auto Diff] Stat Lab 12/01/24 04:56 Completed CMP [Comprehensive Metabolic Panel] Stat Lab 12/01/24 04:56 Completed INR [Prothrombin Time INR] Stat Lab 12/01/24 04:56 Completed UA [Urinalysis and Microscopic] Stat Lab 12/01/24 05:07 Completed UA [Urinalysis and Microscopic] Stat Lab 12/01/24 07:02 Completed Urine Culture Stat Micro 12/01/24 05:07 Received Medical Decision Narrative: 69-year-old male with history of right-sided hydronephrosis presents with gross hematuria, passage of clots, severe lower abdominal/penile pain since attempted urologic procedure yesterday at [facility]. History was obtained via interactive discussion with patient, family, chart review. On arrival, patient is afebrile, hemodynamically stable, satting appropriately, alert, oriented x4, GCS 15, moving all extremities spontaneously. Full physical exam performed and significant for suprapubic tenderness Differential includes but is not limited to ureteral/bladder perforation, bladder obstruction, coagulopathy, UTI. Patient was given morphine x 2 for symptomatic management and correction of underlying abnormalities. Workup initiated including UA, CBC CMP INR CT abdomen pelvis IV contrast. On re-evaluation, patient is in significant pain Laboratory workup independently interpreted by me and significant for urine with too numerous to count WBCs, 5-10 WBCs, 1+ bacteria. Nitrate positive. Imaging independently interpreted by me and significant bilateral hydronephrosis, no evidence of ureteral perforation, though difficult to see rarely in the pelvis artifact from hip replacements. See radiology read for full review of final results. At this time care handed off to oncoming physician. Chad: I assumed primary responsibility for this patient after signout from previous physician. Patient received pain meds just prior to my evaluation. Also receiving continuous bladder irrigation shortly before my arrival. On independent interpretation of patient's workup, nonactionable CBC or chemistry with normal kidney function. Urinalysis with blood, protein, leukocyte esterase, leukocyturia and nitrate positive. Will be treated for urinary tract infection.1 g of ceftriaxone given. On independent interpretation of patient's CT imaging, appears to have ureteral stricture at the UPJ on the right with upstream hydronephrosis. Patient appears to have contrast retention from previous CT studies as he has had other times in the past as well on CT scans. Left kidney also with UVJ stricture versus anatomic obstruction with upstream hydronephrosis and hydroureter. Gas in the bladder from instrumentation yesterday. No acute intra-abdominal anomaly otherwise. Continuous bladder irrigation was continued until patient's urine ran clear. Patient still continues to be in pain, but pain significantly improved after CBI. Conversation had with [facility] about transfer given reassessed her mentation, new left-sided hydronephrosis, and significant pain, need for urologic reconstruction, per chart review. I spoke to Dr. Suarez and Dr. Serna at [facility] and both graciously accepted patient for transfer for further urologic evaluation and likely inpatient reconstruction. Conversation had with patient and regarding transfer modality. I feel patient is stable for private vehicle, but after prolonged conversation, patient and opting for ambulance in case patient does have another episode of severe pain. I feel this is more than reasonable. Because patient high risk for clinical decompensation if discharged, deemed appropriate for transfer and inpatient admission. Results were relayed to patient who voiced understanding and patient was agreeable to transfer, inpatient admission, and management. Patient was graciously accepted and transferred to [facility] for further definitive management, under Dr. Suarez. Procedures <Shimon Horvath MD - Last Filed: 12/01/24 07:01> Risk/Benefits of Procedure(s) Were Explained: Yes Critical Care <Shimon Horvath MD - Last Filed: 12/01/24 07:01> Critical Care Time Critical Care Time: No
[2024-12-01] MEDS: MORPHINE 4MG/ML SYRINGE 4 MG IV ×2 (05:09→06:06)
[2024-12-01 05:11] LABS: Microscopic, Urine URINE MICROSCOPIC (MICROSCOPIC)
--- NOTE | 2024-12-01 05:20 | CT_ITS ---
PROCEDURE INFORMATION: Exam: CT Abdomen And Pelvis With Contrast, Kidneys Exam date and time: 12/01/2024 6:35 AM Age: 69 years old Clinical indication: Abdominal pain; Generalized; Severe pain with urination, uro procedure, yesterday, gross hematuria; Additional info: Uro procedure yesterday, severe blood and pain TECHNIQUE: Imaging protocol: Computed tomography of the abdomen and pelvis with intravenous contrast. Exam focused on the kidneys. Radiation optimization: All CT scans at this facility use at least one of these dose optimization techniques: automated exposure control; mA and/or kV adjustment per patient size (includes targeted exams where dose is matched to clinical indication); or iterative reconstruction. Contrast material: ISOVUE; Contrast volume: 75 ml; Contrast route: IV; COMPARISON: CT ABDOMEN PELVIS W CON 10/03/2024 3:49 AM FINDINGS: Lungs: The lung bases are clear. Liver: The liver is normal in appearance. No focal liver mass or intrahepatic biliary dilatation. Gallbladder and biliary ducts: The gallbladder is unremarkable with no calcified stones visualized and no strandy inflammatory changes surrounding the gallbladder. Pancreas: The pancreas is normal in appearance. No evidence of pancreatic ductal dilatation. Spleen: The spleen is normal in appearance. Adrenal glands: The adrenal glands are normal in appearance. Kidneys and ureters: There is new moderate left hydronephrosis and left hydroureter. The distal left ureter is poorly visualized due to beam hardening artifacts from the patient's bilateral hip prostheses. No obvious obstructing calcified stone in the distal left ureter. Stable left renal cortical cyst. Stable - subtle worsening of the right hydronephrosis. Known chronic right UPJ obstruction There is trace right hydroureter. The distal right ureter is poorly visualized due to beam hardening artifacts from the patient's bilateral hip prostheses. No obvious obstructing calcified stone in the distal right ureter. There is a small volume of gas in the right collecting system likely introduced during instrumentation. There is delayed/heterogeneous enhancement of the right renal cortex when compared to the left with areas of cortical striations. Right pyelonephritis can not be excluded. Stomach and bowel: The small bowel loops are not thickened and are nondilated. There is colonic diverticulosis but no evidence of diverticulitis. Mild constipation. Appendix: The appendix is not identified, but there are no inflammatory changes in its expected region. Intraperitoneal space: Unremarkable. No free air. No significant fluid collection. Lymph nodes: Unremarkable. No enlarged lymph nodes. Vasculature: Mild stenosis of the origin of the celiac trunk secondary to calcified plaque. No abdominal aortic aneurysm. Urinary bladder: The urinary bladder is distended. There is small volume of gas within the urinary bladder, likely iatrogenic and introduced during the recent urologic procedure. The base of the urinary bladder is poorly visualized due to beam hardening artifacts in the adjacent bilateral hip prostheses. Reproductive: Unremarkable. Bones/joints: No acute osseous lesions. There are multilevel chronic degenerative changes throughout the visualized spine. Soft tissues: Unremarkable. IMPRESSION: 1. New moderate left hydronephrosis and left hydroureter but no obstructing stone is visualized. 2. Distension of the urinary bladder with small volume of gas in the bladder, likely iatrogenic and related to the patient's recent procedure. 3. Stable to slight worsening of the chronic right hydronephrosis. There is mild right hydroureter. 4. Delayed and striated right nephrogram. Consider pyelonephritis.
[2024-12-01 05:26] LABS: Appearance,Urine TURBID (Clear); Blood, Urine 3+ (Negative); Color,Urine RED (Yellow); Glucose,Urine (UA) TRACE (Negative); Ketones,Urine 1+ (Negative); Leukocyte Esterase,Urine 1+ (Negative); Nitrate,Urine POSITIVE (Negative); Protein,Urine 3+ (Negative)
--- NOTE | 2024-12-01 05:26 | PC.NURSE ---
bladder scan showed >333ml in bladder. Dr Horvath made aware.
[2024-12-01 05:27] LABS: Bilirubin,Urine Negative (Negative)
[2024-12-01 05:28] LABS: Bacteria,Urine 1+ /lpf; RBC,Urine TNTC #/hpf (0-3)
[2024-12-01 05:38] LABS: Alanine Aminotransferase 23 U/L (12-78); Albumin Level 5.2 g/dl (3.5-5.0); Albumin/Globulin Ratio 1.7 (1.1-1.8); Alkaline Phosphatase 69 U/L (38-126); Anion Gap 12.8 mEq/L (5-15); Aspartate Amino Transferase 32 U/L (17-59); Bilirubin,Total 1.1 mg/dl (0.2-1.3); Blood Urea Nitrogen 14 mg/dl (9-20); Calcium 9.9 mg/dl (8.4-10.2); Carbon Dioxide 30 mmol/L (22.0-30.0); Chloride 102 mmol/L (98-107); Creatinine Clearance Estimated 68 mL/min (50-200); Estimated Glomerular Filt Rate 74 ml/min (>60); GFR (African American) 89 ML/MIN (>60); Glucose 117 mg/dl (74-100); Potassium 3.8 mmoL/L (3.5-5.1); Sodium 141 mmol/L (136-145); Total Protein,Serum 8.2 g/dl (6.3-8.2)
[2024-12-01 05:42] LABS: Basophils % 0.4 % (0.1-2.0); Eosinophils # 0.4 K/mm3 (0.0-0.4); Eosinophils % 4.3 % (0.1-12.0); Hematocrit 45.6 % (42.0-52.0); Hemoglobin 15.6 g/dL (14.1-18.0); Lymphocytes # 2.7 K/mm3 (0.7-4.5); Lymphocytes % 29.2 % (10-50); Mean Corpuscular HGB Conc 34.2 g/dL (31.8-35.4); Mean Corpuscular Hemoglobin 31.7 pg (27.0-31.2); Mean Corpuscular Volume 92.7 fl (80-94); Mean Platelet Volume 10.9 fl (7.4-10.4); Monocytes # 0.8 K/mm3 (0.1-1.0); Monocytes % 8.5 % (1.7-9.3); Neutrophils # 5.3 K/mm3 (1.8-7.8); Neutrophils % 57.3 % (37.0-80.0); Platelet Count 218 K/mm3 (142-424); Red Blood Count 4.92 M/mm3 (4.60-6.20); Red Cell Distribution Width 13.2 % (11.5-17.5); White Blood Count 9.3 K/mm3 (4.8-10.8)
--- NOTE | 2024-12-01 06:09 | PC.NURSE ---
pt in bathroom for approx 20 mins. facility technician waiting to take pt for scans. Pt sitting on toilet, in bathroom as well. came out and asked if pt could have more pain medication. orders received and carried out per MAR
--- NOTE | 2024-12-01 06:21 | PC.NURSE ---
pt and coming out of bathroom at this time. welder tech notified.
--- NOTE | 2024-12-01 06:30 | PC.NURSE ---
pt to CT at this time
[2024-12-01] MEDS: SODIUM CHLORIDE 0.9% 10ML SYR (RAD ONLY) 10 ML IV (06:39)
[2024-12-01] MEDS: IOPAMIDOL-370 (76%);100ML BOTTLE 75 ML IV (06:39)
[2024-12-01] MEDS: HYDROMORPHONE 2MG/ML SYRINGE 0.5 MG IV (06:54)
--- NOTE | 2024-12-01 07:11 | PC.NURSE ---
[address] nash catheter inserted
[2024-12-01 07:15] LABS: Microscopic, Urine URINE MICROSCOPIC (MICROSCOPIC)
[2024-12-01 07:24] LABS: Appearance,Urine CLOUDY (Clear); Bilirubin,Urine Negative (Negative); Blood, Urine 3+ (Negative); Color,Urine RED (Yellow); Glucose,Urine (UA) Negative (Negative); Ketones,Urine 1+ (Negative); Leukocyte Esterase,Urine 1+ (Negative); Nitrate,Urine POSITIVE (Negative); Protein,Urine 3+ (Negative); Specific Gravity, Urine 1.015 (1.005-1.030)
--- NOTE | 2024-12-01 07:45 | PC.NURSE ---
Output of [id number]
[2024-12-01 07:50] LABS: Bacteria,Urine 1+ /lpf; RBC,Urine TNTC #/hpf (0-3); Squamous Epithelial Cell,Urine Occasional #/hpf (0-5); WBC,Urine 20-50 #/hpf (0-3)
--- NOTE | 2024-12-01 07:51 | PC.NURSE ---
Called [facility] for to see about patient getting transfered.
--- NOTE | 2024-12-01 07:52 | PC.NURSE ---
was ready to talk to so i transfered the call to him and he is on the phone with them now.
[2024-12-01] MEDS: CEFTRIAXONE 1 GM 1 GM in 0.9 % SODIUM CHLORIDE 50 ML IV (07:57)
--- NOTE | 2024-12-01 08:33 | PC.NURSE ---
Transfer record completed, signed by .
[2024-12-01] MEDS: HYDROMORPHONE 2MG/ML SYRINGE 1 MG IV (10:16)
== END 2024-12-01 10:21 | disposition short-term general hospital (02) ==
PROVIDERS: Emergency Medicine; Emergency Provider Emergency Medicine
DX: N13.9 Obstructive and reflux uropathy, unspecified (principal); N13.30 Unspecified hydronephrosis; R31.9 Hematuria, unspecified; R10.9 Unspecified abdominal pain; N48.89 Other specified disorders of penis; R39.89 Other symptoms and signs involving the genitourinary system
CPT/HCPCS: 51702; 74177; 80053; 81001; 85025; 85610; 87086; 96365; 96374; 96375; 96376; 99285; J0696; J1171; J2270; Q9967

== ENCOUNTER 2024-12-01 22:49 | Emergency (ER) | payer MEDICARE, OTHER, SELFPAY ==
--- NOTE | 2024-12-01 22:54 | [facility].EDGENADL ---
Discharge Plan Disposition Patient Disposition: Home, Self-Care Prescriptions Prescriptions: New ondansetron HCl 4 mg tablet 4 mg PO Q8H PRN (Reason: nausea and vomiting) 5 Days Qty: 30 0RF sulfamethoxazole-trimethoprim 800-160 mg tablet 1 tab PO BID 7 Days Qty: 14 0RF No Action tamsulosin 0.4 mg Capsule 0.8 mg PO HS 30 Days Qty: 60 0RF tramadol 50 mg tablet 50 mg PO TID PRN (Reason: pain) Qty: 9 0RF cefdinir 300 mg capsule 300 mg PO BID 8 Days Qty: 16 0RF Referrals Follow up/Referrals: Thiago Gregory APRN [Primary Care Provider] - See instructions Activity Restrictions/Add. Instructions Additional Instructions/Restrictions: Please follow-up with . Please take antibiotics and nausea medication as prescribed. Please take other medications as previously prescribed. Return for signs of obstruction. Clinical Impressions Clinical Impression: Acute urinary obstruction, Bladder spasms Instructions Patient Instructions: DI for Urinary Tract Infection (UTI), DI for Urinary Tract Infection in Children Print Language Print Language: Gu[place] Discharge ED Provider: Shimon Horvath General Adult HPI General Chief complaint: Urogenital-Male Stated complaint: F/C put in this AM at [facility] and now draining properl Time Seen by Provider: 12/01/24 22:54 History of Present Illness HPI narrative: 69-year-old male with history of ureteral stricture/hydronephrosis Zen for Sung catheter obstruction and worsening pain. He was seen here this morning by me. Please see previous note for full details. In short, patient had a urologic procedure to stent his ureter but they were unsuccessful. After he was discharged he had worsening hematuria and pain and had acute urinary retention secondary to clot. A Sung was placed and patient was irrigated and sent to for further assessment. At they offered admission but he declined, preferring to follow-up with a Sung in place. Plan for percutaneous nephrostomy tubes on an outpatient basis. Patient presents today because he is having worsening pain again and is not having as much urine output. Related Data Previous Rx's ?Medication ?Instructions ?Recorded tamsulosin 0.4 mg capsule 0.8 mg (2 x 0.4 mg) PO HS 30 days 09/30/24 #60 caps tramadol 50 mg tablet 50 mg PO TID PRN pain #9 tabs 01/01/25 cefdinir 300 mg capsule 300 mg PO BID 8 days #16 caps 10/01/24 ondansetron HCl 4 mg tablet 4 mg PO Q8H PRN nausea and 12/02/24 vomiting 5 days #30 tabs sulfamethoxazole 800 1 tab PO BID 7 days #14 tabs 12/02/24 mg-trimethoprim 160 mg tablet Allergies Allergy/AdvReac Type Severity Reaction Status Date / Time prochlorperazine (From Allergy Other Verified 09/29/24 02:29 Compazine) [facility] Disclaimer: The information contained in this section may have been updated after the patient was seen, as this information can be updated by other users. Medical History (Updated 12/02/24 @ 01:55 by Shimon Horvath MD) Hypertension Patient new to facility Contact dermatitis Joint pain Hypertensive encephalopathy syndrome Encephalopathy Subcutaneous nodule of left thumb Tobacco dependence due to cigarettes Pain of left thumb Heberden's nodes of left hand Poison rashida dermatitis Shoulder pain, bilateral Fatigue Hydronephrosis Elevated PSA Hep C w/o coma, chronic Surgical History (Updated 09/29/24 @ 03:42 by Edward Cornelius APRN) H/O prostate biopsy History of hip replacement Social History (Updated 09/29/24 @ 03:43 by Edward Cornelius APRN) Smoking Status: Never smoker second hand exposure: Yes alcohol intake: current substance use type: marijuana current occupational status: employed Travel in the last 8 weeks: Inside the [place] household members: spouse housing: house current occupational exposures/hazards: No caffeine: Yes Have you lived/traveled outside [place] in past 30 days?: No Contact w/someone who lives/traveled outside [place] past 30 days?: No Exposure to someone with infectious disease in past 14 days?: No Do you have a fever (greater than 100.4 F or 38 C)?: No Have you tested positive for COVID-19: No Exposed to someone with COVID-19 in past 14 days?: No Do you have a sore throat?: No Do you have a cough?: No Do you have any weakness?: No Do you have any diarrhea?: No Are you experiencing any unusual bleeding?: No Do you have any muscle aches/pain?: No Do you have any abdominal pain?: No Are you experiencing loss of taste or smell?: No Other Medical History Have you received the Flu Vaccine for this season: No Have you received the Pneumonia Vaccine: No ROS Obtained: Yes All systems reviewed & no additional complaints except as documented Physical Exam General General appearance: alert and in no apparent distress Head Head exam: atraumatic and normocephalic Eye Eye exam: Present normal appearance, PERRL and EOMI ENT ENT exam: Present normal oropharynx and normal external ear exam Neck Neck exam: Present normal inspection and full ROM Chest Chest inspection: Present normal inspection and symmetric chest wall rise; Absent tenderness Respiratory Respiratory exam: Present normal lung sounds bilaterally; Absent respiratory distress Cardiovascular Cardiovascular exam: Present regular rate and normal rhythm Abdominal Exam Abdominal exam: Present soft and tenderness (Suprapubic); Absent distention or guarding Extremities Exam Extremities exam: Present normal inspection; Absent edema or joint swelling Back Exam Back exam: Present normal inspection; Absent tenderness Neurological Exam Neurological exam: Present alert and oriented X3; Absent motor sensory deficit Psychiatric Psychiatric exam: Present normal affect and normal mood Skin Skin exam: Present warm, dry and normal color Lymphatic Lymphatic Findings: no adenopathy Medical Decision Making Medical Records Medical records reviewed: Yes I reviewed the patient's medical records. Screening: Per USPSTF and CDC recommendations, given the prevalence of disease in our region, it is our hospital?s policy to screen for HIV and viral Hepatitis for all patients aged 18 and over and those with ongoing risk factors. Pérez Inquiry Pt receiving controlled substance: No Pérez was queried for this patient: No Vital Signs: 12/01/24 22:56 12/01/24 23:03 12/01/24 23:16 Temperature 97.9 F Temperature Source Tympanic Pulse Rate 83 94 H Pulse Rate [Apical] 102 H Respiratory Rate 20 20 Blood Pressure 167/90 H 205/131 H Blood Pressure [Right Arm] 167/115 H Blood Pressure Mean 149 Blood Pressure Mean [Right Arm] 132 02 Sat by Pulse Oximetry 97 95 99 Oxygen Delivery Method Room Air Room Air 12/01/24 23:31 12/01/24 23:45 12/02/24 00:00 Temperature Temperature Source Pulse Rate 119 H 88 87 Pulse Rate [Apical] Respiratory Rate Blood Pressure 224/126 H 162/96 H 148/89 H Blood Pressure [Right Arm] Blood Pressure Mean 158 131 121 Blood Pressure Mean [Right Arm] 02 Sat by Pulse Oximetry 98 94 L 98 Oxygen Delivery Method 12/02/24 00:15 12/02/24 00:30 12/02/24 00:45 Temperature Temperature Source Pulse Rate 81 78 76 Pulse Rate [Apical] Respiratory Rate Blood Pressure 181/96 H 167/90 H 162/90 H Blood Pressure [Right Arm] Blood Pressure Mean 124 116 108 Blood Pressure Mean [Right Arm] 02 Sat by Pulse Oximetry 98 95 97 Oxygen Delivery Method 12/02/24 02:43 Temperature 98.2 F Temperature Source Tympanic Pulse Rate 85 Pulse Rate [Apical] Respiratory Rate 18 Blood Pressure 148/78 H Blood Pressure [Right Arm] Blood Pressure Mean Blood Pressure Mean [Right Arm] 02 Sat by Pulse Oximetry Oxygen Delivery Method Room Air Lab Data Lab results reviewed: Yes I reviewed the patient's lab results. Orders (Tests/Meds): ED MEDICATIONS Discontinued Medications Generic Name Dose Route Start Last Admin Trade Name Freq PRN Reason Stop Dose Admin Ondansetron HCl 4 mg 12/02/24 00:02 12/02/24 00:09 Ondansetron 4mg Odt SL 12/02/24 00:03 4 mg ONCE ONE Administration Ondansetron HCl 4 mg 12/02/24 00:34 12/02/24 00:35 Ondansetron 4mg/2ml Vial IV 12/02/24 00:35 Not Given ONCE ONE Oxybutynin Chloride 5 mg 12/02/24 01:54 12/02/24 02:06 Oxybutynin 5mg Tab PO 12/02/24 01:55 5 mg ONCE ONE Administration Oxycodone HCl 5 mg 12/02/24 00:02 12/02/24 00:08 Oxycodone 5mg Immediate Release Tablet PO 12/02/24 00:03 5 mg ONCE ONE Administration Medical Decision Narrative: 69-year-old male with history as documented above presents for worsening abdominal pain/bladder spasms/urinary obstruction. History was obtained via interactive discussion with patient, chart review. On arrival, patient is [afebrile, hemodynamically stable, satting appropriately, alert, oriented x4, GCS 15], moving all extremities spontaneously. Full physical exam performed and significant for suprapubic tenderness. Differential includes but is not limited to urinary obstruction secondary to hematuria, bladder spasms. Patient was given oxycodone and Zofran and oxybutynin for symptomatic management and correction of underlying abnormalities. The catheter was flushed with expression of clots. The catheter was then irrigated with large volume of saline. After irrigation, urine ran clear and patient was able to empty his bladder. Bladder scan negative. Urinalysis blood work etc. was considered, but deemed unnecessary due to history and exam. Given patient history, exam and workup, patient's presentation most likely represents urinary retention secondary to gross hematuria. Patient was discharged in stable condition with return precautions. He was also discharged with antibiotics as he reports he was not discharged with antibiotics when he was seen at earlier today. Procedures Risk/Benefits of Procedure(s) Were Explained: Yes Critical Care Critical Care Time Critical Care Time: No
[2024-12-01 22:56] VITALS: BP 167/115; PULSE 102; RESP 20; TEMP 36.6; O2SAT 97; BMI 21.6
[2024-12-01 23:03] VITALS: BP 167/90; PULSE 83; RESP 20; O2SAT 95
[2024-12-01 23:16] VITALS: BP 205/131; PULSE 94; O2SAT 99
[2024-12-01 23:31] VITALS: BP 224/126; PULSE 119; O2SAT 98
[2024-12-01 23:45] VITALS: BP 162/96; PULSE 88; O2SAT 94
[2024-12-02] VITALS: BP 148/89; PULSE 87; O2SAT 98
[2024-12-02] MEDS: OXYCODONE 5MG IMMEDIATE RELEASE TABLET 5 MG PO (00:08)
[2024-12-02] MEDS: ONDANSETRON 4MG ODT 4 MG SL (00:09)
[2024-12-02 00:15] VITALS: BP 181/96; PULSE 81; O2SAT 98
[2024-12-02 00:30] VITALS: BP 167/90; PULSE 78; O2SAT 95
[2024-12-02 00:45] VITALS: BP 162/90; PULSE 76; O2SAT 97
[2024-12-02] MEDS: OXYBUTYNIN 5MG TAB 5 MG PO (02:06)
[2024-12-02 02:43] VITALS: BP 148/78; PULSE 85; RESP 18; TEMP 36.8; O2SAT 98
== END 2024-12-02 02:45 | disposition home or self-care (01) ==
PROVIDERS: Emergency Provider Emergency Medicine; PCP Nurse Practitioner Family
DX: N32.89 Other specified disorders of bladder (principal); N13.9 Obstructive and reflux uropathy, unspecified; N13.30 Unspecified hydronephrosis
CPT/HCPCS: 96374; 99283; Q0162

== ENCOUNTER 2024-12-03 19:54 | Emergency (ER) | payer MEDICARE, OTHER, SELFPAY ==
[2024-12-03] VITALS (7 sets, daily range): BP systolic 125–161; BP diastolic 72–90; PULSE 74–97; RESP 14–18; TEMP 36.6–36.8; O2SAT 97–100; BMI 20.9
[2024-12-03 20:25] LABS: Coronavirus 19, PCR Not Detected (NotDetected); Influenza A, PCR Not Detected (NotDetected); Influenza B, PCR Not Detected (NotDetected)
--- NOTE | 2024-12-03 21:11 | HMH.EDGENADL ---
Discharge Plan Disposition Patient Disposition: Home, Self-Care Prescriptions Prescriptions: New cefdinir 300 mg capsule 300 mg PO BID 10 Days Qty: 20 0RF No Action tamsulosin 0.4 mg Capsule 0.8 mg PO HS 30 Days Qty: 60 0RF tramadol 50 mg tablet 50 mg PO TID PRN (Reason: pain) Qty: 9 0RF cefdinir 300 mg capsule 300 mg PO BID 8 Days Qty: 16 0RF ondansetron HCl 4 mg tablet 4 mg PO Q8H PRN (Reason: nausea and vomiting) 5 Days Qty: 30 0RF sulfamethoxazole-trimethoprim 800-160 mg tablet 1 tab PO BID 7 Days Qty: 14 0RF Referrals Follow up/Referrals: Thiago Gregory APRN [Primary Care Provider] - See instructions Activity Restrictions/Add. Instructions Additional Instructions/Restrictions: Call your family doctor to establish care for this visit to the emergency department and schedule follow-up within 48 hours to ensure improvement. If you have any worsening of your condition or any other concerning signs or symptoms, return to the emergency department or your primary care doctor for further evaluation. Clinical Impressions Clinical Impression: Urinary tract infection Print Language Print Language: [place] Citizen Discharge ED Provider: Mateusz Bonilla General Adult HPI General Chief complaint: Fever Stated complaint: chills, body aches, poss UTI Time Seen by Provider: 12/03/24 20:29 Mode of Arrival: Ambulatory Description of Symptoms (Recalled from ER Triage Doc. by RN): Pt presents with c/o chills, bodyaches, and fever of 102.3. Pt believes he has the flu but Pt also states he was at to have an attempted scope of his right ureter for a stricture. Pt then was seen here 2 days ago for having decreased urine output and bloody clots. Pt states catheter was removed yesterday at . History of Present Illness HPI narrative: Please note that above description of symptoms, in this electronic medical record under categorization of recalled from ER triage doctor by RN are reflective of an initial nursing assessment, however, is not reflective of my full history and physical exam that was personally taken and clarified. Consequentially, this preceding description of symptoms, which may include the patient's categorized chief complaint in the EMR, do not reflect my personal clinical impression, and the ultimate description of history of present illness and patient stated complaints should be deferred to this section of the note. Unless stated otherwise or congruent with this section of the note, additional signs, symptoms, or incongruence should be interpreted as inaccurate with my clinical impression. Related Data Previous Rx's ?Medication ?Instructions ?Recorded tamsulosin 0.4 mg capsule 0.8 mg (2 x 0.4 mg) PO HS 30 days 09/30/24 #60 caps tramadol 50 mg tablet 50 mg PO TID PRN pain #9 tabs 09/30/24 cefdinir 300 mg capsule 300 mg PO BID 8 days #16 caps 10/01/24 ondansetron HCl 4 mg tablet 4 mg PO Q8H PRN nausea and 12/02/24 vomiting 5 days #30 tabs sulfamethoxazole 800 1 tab PO BID 7 days #14 tabs 12/02/24 mg-trimethoprim 160 mg tablet cefdinir 300 mg capsule 300 mg PO BID 10 days #20 caps 12/03/24 Allergies Allergy/AdvReac Type Severity Reaction Status Date / Time prochlorperazine (From Allergy Other Verified 12/03/24 20:24 Compazine) [facility] Disclaimer: The information contained in this section may have been updated after the patient was seen, as this information can be updated by other users. Medical History (Updated 12/03/24 @ 23:08 by Mateusz Bonilla MD) Hypertension Patient new to facility Contact dermatitis Joint pain Hypertensive encephalopathy syndrome Encephalopathy Subcutaneous nodule of left thumb Tobacco dependence due to cigarettes Pain of left thumb Heberden's nodes of left hand Poison rashida dermatitis Shoulder pain, bilateral Fatigue Hydronephrosis Elevated PSA Hep C w/o coma, chronic Surgical History H/O prostate biopsy History of hip replacement Social History Smoking Status: Never smoker second hand exposure: Yes alcohol intake: current substance use type: marijuana current occupational status: employed Travel in the last 8 weeks: Inside the [place] household members: spouse housing: house current occupational exposures/hazards: No caffeine: Yes Have you lived/traveled outside [place] in past 30 days?: No Contact w/someone who lives/traveled outside US past 30 days?: No Exposure to someone with infectious disease in past 14 days?: No Do you have a fever (greater than 100.4 F or 38 C)?: No Have you tested positive for COVID-19: No Exposed to someone with COVID-19 in past 14 days?: No Do you have a sore throat?: No Do you have a cough?: No Do you have any weakness?: No Do you have any diarrhea?: No Are you experiencing any unusual bleeding?: No Do you have any muscle aches/pain?: No Do you have any abdominal pain?: No Are you experiencing loss of taste or smell?: No Other Medical History Have you received the Flu Vaccine for this season: No Have you received the Pneumonia Vaccine: No ROS Obtained: Yes All systems reviewed & no additional complaints except as documented Physical Exam General General appearance: alert Head Head exam: atraumatic and normocephalic Eye Eye exam: Present normal appearance, PERRL and EOMI Neck Neck exam: Present normal inspection, full ROM and trachea midline Respiratory Respiratory exam: Absent respiratory distress, wheezes, stridor, accessory muscle use or prolonged expiratory phase Cardiovascular Cardiovascular exam: Present other (Pulses equal symmetric in upper and lower extremities) Abdominal Exam Abdominal exam: Present soft; Absent distention, tenderness or pulsatile mass Extremities Exam Extremities exam: Absent edema Neurological Exam Neurological exam: Present alert, oriented X3 and CN II-XII intact; Absent motor sensory deficit Skin Skin exam: Present warm and dry; Absent diaphoresis or erythema Medical Decision Making Medical Records Medical records reviewed: Yes I reviewed the patient's medical records. Screening: Per USPSTF and CDC recommendations, given the prevalence of disease in our region, it is our hospital?s policy to screen for HIV and viral Hepatitis for all patients aged 18 and over and those with ongoing risk factors. Pérez Inquiry Pt receiving controlled substance: No Pérez was queried for this patient: No Vital Signs: 12/03/24 20:11 12/03/24 20:33 12/03/24 20:34 Temperature 98.3 F Temperature Source Oral Pulse Rate 96 H Pulse Rate [Right] 97 H Respiratory Rate 18 18 Blood Pressure 149/89 H 149/89 H Blood Pressure [Right Arm] 125/72 Blood Pressure Mean Blood Pressure Mean [Right Arm] 89 Blood Pressure Source [Right Arm] Automatic Cuff Blood Pressure Position Sitting Blood Pressure Position [Right Arm] Sitting 02 Sat by Pulse Oximetry 98 97 97 Oxygen Delivery Method Room Air Room Air Room Air 12/03/24 20:34 12/03/24 21:00 12/03/24 21:31 Temperature Temperature Source Temporal Artery Scan Pulse Rate 91 H 89 Pulse Rate [Right] Respiratory Rate Blood Pressure 156/83 H 147/83 H Blood Pressure [Right Arm] Blood Pressure Mean Blood Pressure Mean [Right Arm] Blood Pressure Source [Right Arm] Blood Pressure Position Blood Pressure Position [Right Arm] 02 Sat by Pulse Oximetry 98 99 Oxygen Delivery Method Room Air Room Air 12/03/24 22:00 12/03/24 23:17 Temperature 98 F Temperature Source Oral Pulse Rate 74 Pulse Rate [Right] Respiratory Rate 14 Blood Pressure 161/90 H 129/75 Blood Pressure [Right Arm] Blood Pressure Mean 111 Blood Pressure Mean [Right Arm] Blood Pressure Source [Right Arm] Blood Pressure Position Sitting Blood Pressure Position [Right Arm] 02 Sat by Pulse Oximetry Oxygen Delivery Method Room Air Room Air Lab Data Lab Results 12/03/24 20:20: SARS-CoV-2 (PCR) Not detected, Influenza A Untype (PCR) Not detected, Influenza Type B (PCR) Not detected 12/03/24 21:35: Urine Color [place], Urine Appearance Turbid, Urine pH 6.5, Ur Specific [place] >= 1.030, Urine Protein 3+ A, Urine Glucose (UA) 1+, Urine Ketones 2+, Urine Blood 3+ A, Urine Nitrate Positive A, Urine Bilirubin Negative, Urine Urobilinogen >=8.0, Ur Leukocyte Esterase 1+ A, Urine RBC Tntc, Urine WBC 20-50, Ur Squamous Epith Cells Occasional, Urine Bacteria 2+ 12/03/24 22:09: WBC 15.8 H D, RBC 4.50 L, Hgb 14.3, Hct 41.1 L, MCV 91.3, MCH 31.8 H, MCHC 34.8, RDW 12.9, Plt Count 188, MPV 9.9, Neut % (Auto) 84.8 H, Lymph % (Auto) 7.8 L, [place] % (Auto) 6.5, Eos % (Auto) 0.4, Baso % (Auto) 0.1, Neut # (Auto) 13.4 H, Lymph # (Auto) 1.2, [place] # (Auto) 1.0, Eos # (Auto) 0.1, Baso # (Auto) 0.0, Total Counted 100, Neutrophils % (Manual) 88 H, Lymphocytes % (Manual) 11, Monocytes % (Manual) 1 L, Platelet Estimate Normal, Stomatocytes 1+, Sodium 133 L, Potassium 4.1, Chloride 99, Carbon Dioxide 22, Anion Gap 16.1 H, BUN 20 D, Creatinine 1.30 H D, Estimated Creat Clear 51, Estimated GFR 55 L, Est GFR ( Amer) 66 D, Glucose 114 H, Lactate 1.4, Calcium 9.3, Total Bilirubin 0.9, AST 27, ALT 19, Alkaline Phosphatase 72, Total Protein 7.4, Albumin 4.7, Globulin 2.7, Albumin/Globulin Ratio 1.7 12/03/24 22:09 12/03/24 22:09 Orders (Tests/Meds): ED MEDICATIONS Discontinued Medications Generic Name Dose Route Start Last Admin Trade Name Freq PRN Reason Stop Dose Admin Ceftriaxone Sodium 1 gm/ 50 mls @ 100 mls/hr 12/03/24 22:11 12/03/24 22:26 Sodium Chloride IV 12/03/24 22:40 100 mls/hr ONCE ONE Administration Ketorolac Tromethamine 15 mg 12/03/24 22:04 12/03/24 22:25 Ketorolac 30mg/Ml Vial IV 12/03/24 22:05 15 mg ONCE ONE Administration Morphine Sulfate 4 mg 12/03/24 22:04 12/03/24 22:25 Morphine 4mg/Ml Syringe IV 12/03/24 22:05 4 mg ONCE ONE Administration Ondansetron HCl 4 mg 12/03/24 22:04 12/03/24 22:25 Ondansetron 4mg/2ml Vial IV 12/03/24 22:05 4 mg ONCE ONE Administration ORDERS Category Date Time Status CBC w/Auto Diff [Complete Blood Count Auto Diff] Stat Lab 12/03/24 22:09 Completed CMP [Comprehensive Metabolic Panel] Stat Lab 12/03/24 22:09 Completed Lactic Acid Stat Lab 12/03/24 22:09 Completed Rapid PCR Covid and Flu A/B Stat Lab 12/03/24 20:20 Completed UA [Urinalysis and Microscopic] Stat Lab 12/03/24 21:35 Completed Blood Culture Stat Micro 12/03/24 22:25 Received Urine Culture Stat Micro 12/03/24 21:35 Received Medical Decision Narrative: This is a 69-year-old male with a past medical history of chronic right-sided hydronephrosis and intermittent urinary obstruction following with urology patient had 4 emergency department visits within the last couple days, both urinary [facility] patient states that after he was seen here on Saturday and transferred to [facility], at the emergency department he was given the option to leave with a urinary catheter or without a urinary catheter. He decided to leave with a catheter, later that evening had pain with urination and gross hematuria. This prompted him to return to our emergency department to adjust the urinary catheter. Then he returned to [facility]'for continued hematuria and abdominal pain. He was then given the option to leave with a catheter leave without a catheter or be admitted overnight for observation and he decided to leave without a catheter from 's emergency department. He states the next morning he wanted to begin his Bactrim which was prescribed at the visit. This morning he woke up with fevers chills suprapubic tenderness and right flank pain and was concerned about the etiology. A inspector outside steam distribution at the urology department recommended that he seek emergency medical treatment at [facility] emergency department to receive a flu swab and UTI testing. Which had already been performed today prior at our emergency department. In summary, today he states that he is here because he wants to figure out what is causing his chills right flank pain suprapubic tenderness and bodyaches. History was obtained via conversation with patient and outside hospital chart review. On arrival, patient hemodynamically stable, alert, oriented x4, appropriate, GCS 15, moving all extremities spontaneously, pupils equal and reactive to light. Full physical exam performed and significant for 69-year-old male no acute distress speaking in full sentences. patient appears agitated admits to right flank tenderness suprapubic tenderness body aches and chills. On exam the patient has suprapubic tenderness and right flank tenderness on palpation but no evidence of peritonitis, no overlying skin changes. differential includes chronic right ureteral obstruction, post instrumentation pain, urinary tract infection, viral syndrome, illness anxiety disorder among others. I feel is unlikely the patient has had bladder or ureteral rupture given no evidence of peritonitis on exam. Patient placed on continuous cardiac monitoring and continuous pulse ox with initial blood pressure 125/72, heart rate 97, saturation 98% on room air. Patient was given Toradol,, Zofran, morphine for symptomatic management and correction of underlying abnormalities. Workup independently interpreted and significant for urinalysis with turbid urine proteinuria, hematuria, nitrate positive urine with leukocyte esterase, reds and whites. Bacteria present. Sent for culture. Patient was given first gram of ceftriaxone here. On reevaluation, patient and demanding more medications and further workup. Patient states that he wanted to be worked up for sepsis, labs were placed out of abundance of caution. I feel this is more than reasonable given recent instrumentation. Labs independently interpreted, stable from [facility]. Mild TAMMIE. This was relayed to patient and . On reevaluation, patient resting more comfortably. Given patient presentation, workup, history, this most likely represents urinary tract infection. Ceftriaxone administered. Prolonged conversation had with patient and . Admission was offered, they opted out of given patient feels a little bit better. 24-hour antibiotic on board, rest to be sent to the pharmacy of choice. Close return precautions discussed. Because patient at baseline without signs or symptoms of clinical decompensation, deemed appropriate for discharge. Results were relayed to patient who voiced understanding and were agreeable to outpatient management and follow up. I discussed my clinical impression with patient and answered all questions. At this time, the evidence for any other entities in the differential is insufficient to warrant any further testing or ED observation. This was explained as well. Advisory was given that persistent or worsening symptoms require further evaluation. I confirmed the understanding of this discussion. Grinder Set Up Operator Thread disclaimer Much of this encounter note is an electronic certification technician spoken language to printed text. Electronic certification technician of the spoken language may permit errors. Although I have reviewed the note, some errors may still exist. Critical Care Critical Care Time Critical Care Time: No
--- NOTE | 2024-12-03 21:35 | PC.NURSE ---
Blader scan performed with approx 100ml of urine in the bladder. Pt ambulates with slow steady gait to the restroom to attempt to provide urine for testing.
[2024-12-03 21:41] LABS: Microscopic, Urine URINE MICROSCOPIC (MICROSCOPIC)
[2024-12-03 21:45] LABS: Appearance,Urine TURBID (Clear); Blood, Urine 3+ (Negative); Color,Urine ORANGE (Yellow); Glucose,Urine (UA) 1+ (Negative); Ketones,Urine 2+ (Negative); Leukocyte Esterase,Urine 1+ (Negative); Nitrate,Urine POSITIVE (Negative); PH,Urine 6.5 (5.0-8.5); Protein,Urine 3+ (Negative); Specific Gravity, Urine >= 1.030 (1.005-1.030); Urobilinogen,Urine >=8.0 EU/dl (0.2)
[2024-12-03 21:48] LABS: Bilirubin,Urine Negative (Negative)
--- NOTE | 2024-12-03 21:58 | PC.NURSE ---
pt at the nurses station requesting pain medication, RN speaking with provider.
--- NOTE | 2024-12-03 21:59 | PC.NURSE ---
Provider at the bedside.
[2024-12-03 22:00] LABS: Bacteria,Urine 2+ /lpf; RBC,Urine TNTC #/hpf (0-3); Squamous Epithelial Cell,Urine Occasional #/hpf (0-5); WBC,Urine 20-50 #/hpf (0-3)
[2024-12-03] MEDS: ONDANSETRON 4MG/2ML VIAL 4 MG IV (22:25)
[2024-12-03] MEDS: KETOROLAC 30MG/ML VIAL 15 MG IV (22:25)
[2024-12-03] MEDS: MORPHINE 4MG/ML SYRINGE 4 MG IV (22:25)
[2024-12-03 22:26] LABS: Basophils % 0.1 % (0.1-2.0); Eosinophils # 0.1 K/mm3 (0.0-0.4); Eosinophils % 0.4 % (0.1-12.0); Hematocrit 41.1 % (42.0-52.0); Hemoglobin 14.3 g/dL (14.1-18.0); Lymphocytes # 1.2 K/mm3 (0.7-4.5); Lymphocytes % 7.8 % (10-50); Mean Corpuscular HGB Conc 34.8 g/dL (31.8-35.4); Mean Corpuscular Hemoglobin 31.8 pg (27.0-31.2); Mean Corpuscular Volume 91.3 fl (80-94); Mean Platelet Volume 9.9 fl (7.4-10.4); Monocytes % 6.5 % (1.7-9.3); Neutrophils # 13.4 K/mm3 (1.8-7.8); Neutrophils % 84.8 % (37.0-80.0); Platelet Count 188 K/mm3 (142-424); Red Cell Distribution Width 12.9 % (11.5-17.5); White Blood Count 15.8 K/mm3 (4.8-10.8)
[2024-12-03] MEDS: CEFTRIAXONE 1 GM 1 GM in 0.9 % SODIUM CHLORIDE 50 ML IV (22:26)
[2024-12-03 22:29] LABS: MANUAL DIFFERENTIAL MANUAL DIFFERENTIAL (MANUAL DIFF)
[2024-12-03 22:31] LABS: Albumin Level 4.7 g/dl (3.5-5.0); Chloride 99 mmol/L (98-107); Potassium 4.1 mmoL/L (3.5-5.1); Sodium 133 mmol/L (136-145)
[2024-12-03 22:33] LABS: Lactic Acid 1.4 mmol/L (0.7-2.1)
[2024-12-03 22:34] LABS: Alanine Aminotransferase 19 U/L (12-78); Albumin/Globulin Ratio 1.7 (1.1-1.8); Alkaline Phosphatase 72 U/L (38-126); Anion Gap 16.1 mEq/L (5-15); Aspartate Amino Transferase 27 U/L (17-59); Bilirubin,Total 0.9 mg/dl (0.2-1.3); Blood Urea Nitrogen 20 mg/dl (9-20); Calcium 9.3 mg/dl (8.4-10.2); Carbon Dioxide 22 mmol/L (22.0-30.0); Creatinine Clearance Estimated 51 mL/min (50-200); Estimated Glomerular Filt Rate 55 ml/min (>60); GFR (African American) 66 ML/MIN (>60); Globulin 2.7 g/dL (1.3-3.2); Glucose 114 mg/dl (74-100); Total Protein,Serum 7.4 g/dl (6.3-8.2)
--- NOTE | 2024-12-03 22:50 | PC.NURSE ---
provider at the bedside updating on POC
[2024-12-03 23:57] LABS: Lymphocytes % 11 % (10-50); Monocytes % 1 % (2-9); Neutrophils % 88 % (42-76); Total Cells Counted 100
[2024-12-03 23:58] LABS: Platelet Estimate Normal; Stomatocytes 1+
== END 2024-12-03 23:18 | disposition home or self-care (01) ==
PROVIDERS: Emergency Provider Emergency Medicine; PCP Nurse Practitioner Family
DX: N39.0 Urinary tract infection, site not specified (principal)
CPT/HCPCS: 80053; 81001; 83605; 85007; 85025; 85027; 87040; 87086; 87636; 96365; 96375; 99284; J0696; J1885; J2270; J2405

== ENCOUNTER 2024-12-04 13:08 | Emergency (ER) | payer MEDICARE, OTHER, SELFPAY ==
[2024-12-04 14:25] VITALS: BP 178/76; PULSE 102; RESP 17; TEMP 36.9; O2SAT 98; BMI 21.6
[2024-12-04 14:54] LABS: Microscopic, Urine URINE MICROSCOPIC (MICROSCOPIC)
[2024-12-04 14:54] LABS: Basophils # 0.1 K/mm3 (0-0.2); Basophils % 0.3 % (0.1-2.0); Eosinophils % 0.1 % (0.1-12.0); Hematocrit 42.1 % (42.0-52.0); Hemoglobin 14.6 g/dL (14.1-18.0); Lymphocytes # 0.7 K/mm3 (0.7-4.5); Lymphocytes % 3.6 % (10-50); Mean Corpuscular HGB Conc 34.7 g/dL (31.8-35.4); Mean Corpuscular Hemoglobin 31.6 pg (27.0-31.2); Mean Corpuscular Volume 91.1 fl (80-94); Monocytes # 1.8 K/mm3 (0.1-1.0); Monocytes % 9.7 % (1.7-9.3); Neutrophils # 16.1 K/mm3 (1.8-7.8); Neutrophils % 85.7 % (37.0-80.0); Platelet Count 191 K/mm3 (142-424); Red Blood Count 4.62 M/mm3 (4.60-6.20); White Blood Count 18.8 K/mm3 (4.8-10.8)
[2024-12-04 14:58] LABS: MANUAL DIFFERENTIAL MANUAL DIFFERENTIAL (MANUAL DIFF)
[2024-12-04 15:25] LABS: Lymphocytes % 4 % (10-50); Monocytes % 8 % (2-9); Neutrophils % 88 % (42-76); Platelet Estimate Normal; RBC Morphology Normal; Total Cells Counted 100
[2024-12-04] MEDS: CEFTRIAXONE 1 GM 1 GM in 0.9 % SODIUM CHLORIDE 50 ML IV (15:27)
[2024-12-04] MEDS: ONDANSETRON 4MG/2ML VIAL 4 MG IV (15:28)
[2024-12-04] MEDS: MORPHINE 4MG/ML SYRINGE 4 MG IV (15:28)
[2024-12-04 15:31] LABS: Lactic Acid 2.1 mmol/L (0.7-2.1)
[2024-12-04 15:35] LABS: Chloride 98 mmol/L (98-107)
[2024-12-04 15:36] LABS: Albumin Level 4.8 g/dl (3.5-5.0); Potassium 4.4 mmoL/L (3.5-5.1); Sodium 133 mmol/L (136-145)
[2024-12-04 15:37] LABS: Lipase 49 U/L (23-300)
--- NOTE | 2024-12-04 15:37 | ED_ITS ---
Discharge Plan Disposition Patient Disposition: Xfer Short-Term Hosp Chief Complaint: Urogenital-Male Prescriptions Prescriptions: No Action tamsulosin 0.4 mg Capsule 0.8 mg PO HS 30 Days Qty: 60 0RF cefdinir 300 mg capsule 300 mg PO BID 10 Days Qty: 20 0RF ondansetron HCl 4 mg tablet 4 mg PO Q8H PRN (Reason: nausea and vomiting) 5 Days Qty: 30 0RF diclofenac sodium 1 % gel 1 ea TOPICAL BID Referrals Follow up/Referrals: Thiago Gregory APRN [Primary Care Provider] - See instructions Clinical Impressions Clinical Impression: Pyelonephritis, Sepsis Stand Alone Forms Stand Alone Forms: Transfer Record - ED Instructions Patient Instructions: DI for Urinary Tract Infection (UTI), DI for Urinary Tract Infection in Children Print Language Print Language: Jordanian Discharge ED Provider: Mateusz Bonilla General Adult HPI <Mateusz Bonilla MD - Last Filed: 12/04/24 17:28> General Chief complaint: Urogenital-Male Stated complaint: vomiting, unable to keep meds down, was in ER 3/6 Time Seen by Provider: 12/04/24 15:07 Mode of Arrival: Wheelchair Source of Information: Patient Description of Symptoms (Recalled from ER Triage Doc. by RN): pt to the ED with generalized body aches, nausea and painful urination. pt reports he was diagnosed with a UTI last night and offered admission but declined and has since declined. pt reports he has been unable to keep down PO meds and has had a decrease in appetite. pt also reports HTN and hasnt been able to consistently take his home meds due to vomiting History of Present Illness HPI narrative: Please note that above description of symptoms, in this electronic medical record under categorization of recalled from ER triage doctor by RN are reflective of an initial nursing assessment, however, is not reflective of my full history and physical exam that was personally taken and clarified. Consequentially, this preceding description of symptoms, which may include the patient's categorized chief complaint in the EMR, do not reflect my personal clinical impression, and the ultimate description of history of present illness and patient stated complaints should be deferred to this section of the note. Unless stated otherwise or congruent with this section of the note, additional signs, symptoms, or incongruence should be interpreted as inaccurate with my clinical impression. Related Data Home Medications ?Medication ?Instructions ?Recorded ?Confirmed diclofenac sodium 1 % topical gel 1 ea topical BID 12/04/24 12/04/24 Previous Rx's ?Medication ?Instructions ?Recorded tamsulosin 0.4 mg capsule 0.8 mg (2 x 0.4 mg) PO HS 30 days 09/30/24 #60 caps ondansetron HCl 4 mg tablet 4 mg PO Q8H PRN nausea and 12/02/24 vomiting 5 days #30 tabs cefdinir 300 mg capsule 300 mg PO BID 10 days #20 caps 12/03/24 Allergies Allergy/AdvReac Type Severity Reaction Status Date / Time prochlorperazine (From Allergy Other Verified 12/03/24 20:24 Compazine) [facility] <Mateusz Bonilla MD - Last Filed: 12/04/24 17:28> [facility] Disclaimer: The information contained in this section may have been updated after the patient was seen, as this information can be updated by other users. Medical History (Updated 12/04/24 @ 17:28 by Mateusz Bonilla MD) Hypertension Patient new to facility Contact dermatitis Joint pain Hypertensive encephalopathy syndrome Encephalopathy Subcutaneous nodule of left thumb Tobacco dependence due to cigarettes Pain of left thumb Heberden's nodes of left hand Poison rashida dermatitis Shoulder pain, bilateral Fatigue Hydronephrosis Elevated PSA Hep C w/o coma, chronic Surgical History H/O prostate biopsy History of hip replacement Social History Smoking Status: Never smoker second hand exposure: Yes alcohol intake: current substance use type: marijuana current occupational status: employed Travel in the last 8 weeks: Inside the [place] household members: spouse housing: house current occupational exposures/hazards: No caffeine: Yes Have you lived/traveled outside [place] in past 30 days?: No Contact w/someone who lives/traveled outside US past 30 days?: No Exposure to someone with infectious disease in past 14 days?: No Do you have a fever (greater than 100.4 F or 38 C)?: No Have you tested positive for COVID-19: No Exposed to someone with COVID-19 in past 14 days?: No Do you have a sore throat?: No Do you have a cough?: No Do you have any weakness?: No Do you have any diarrhea?: No Are you experiencing any unusual bleeding?: No Do you have any muscle aches/pain?: No Do you have any abdominal pain?: No Are you experiencing loss of taste or smell?: No Other Medical History Have you received the Flu Vaccine for this season: No Have you received the Pneumonia Vaccine: No <Mateusz Bonilla MD - Last Filed: 12/04/24 17:28> ROS Obtained: Yes All systems reviewed & no additional complaints except as documented Physical Exam <Mateusz Bonilla MD - Last Filed: 12/04/24 17:28> General General appearance: alert Head Head exam: atraumatic and normocephalic Eye Eye exam: Present normal appearance, PERRL and EOMI Neck Neck exam: Present normal inspection, full ROM and trachea midline Respiratory Respiratory exam: Absent respiratory distress, wheezes, stridor, accessory muscle use or prolonged expiratory phase Cardiovascular Cardiovascular exam: Present other (Pulses equal symmetric in upper and lower extremities) Abdominal Exam Abdominal exam: Present soft; Absent distention, tenderness, guarding, rebound, rigidity or pulsatile mass Extremities Exam Extremities exam: Absent edema Neurological Exam Neurological exam: Present alert, oriented X3 and CN II-XII intact; Absent motor sensory deficit Skin Skin exam: Present warm and dry; Absent diaphoresis or erythema Medical Decision Making <Mateusz Bonilla MD - Last Filed: 12/04/24 17:28> Medical Records Medical records reviewed: Yes I reviewed the patient's medical records. Screening: Per USPSTF and CDC recommendations, given the prevalence of disease in our region, it is our hospital?s policy to screen for HIV and viral Hepatitis for all patients aged 18 and over and those with ongoing risk factors. Pérez Inquiry Pt receiving controlled substance: No Pérez was queried for this patient: No Vital Signs: 12/04/24 14:25 Temperature 98.5 F Temperature Source Oral Pulse Rate [Left Radial] 102 H Respiratory Rate 17 Blood Pressure [Right Arm] 178/76 H Blood Pressure Mean [Right Arm] 110 Blood Pressure Source [Right Arm] Automatic Cuff Blood Pressure Position [Right Arm] Sitting 02 Sat by Pulse Oximetry 98 Oxygen Delivery Method Room Air Lab Data Lab Results 12/04/24 14:50: WBC 18.8 H, RBC 4.62, Hgb 14.6, Hct 42.1, MCV 91.1, MCH 31.6 H, MCHC 34.7, RDW 13.0, Plt Count 191, MPV 11.0 H, Neut % (Auto) 85.7 H, Lymph % (Auto) 3.6 L, Canyon % (Auto) 9.7 H, Eos % (Auto) 0.1, Baso % (Auto) 0.3, Neut # (Auto) 16.1 H, Lymph # (Auto) 0.7, Canyon # (Auto) 1.8 H, Eos # (Auto) 0.0, Baso # (Auto) 0.1, Total Counted 100, Neutrophils % (Manual) 88 H, Lymphocytes % (Manual) 4 L, Monocytes % (Manual) 8, Platelet Estimate Normal, RBC Morphology Normal, Sodium 133 L, Potassium 4.4, Chloride 98, Carbon Dioxide 22, Anion Gap 17.4 H, BUN 25 H, Creatinine 1.50 H, Estimated Creat Clear 46, Estimated GFR 46 L, Est GFR ( Amer) 56 L, Glucose 127 H, Lactate 2.1, Calcium 9.4, Total Bilirubin 1.1, AST 32, ALT 23, Alkaline Phosphatase 72, Total Protein 7.1, Albumin 4.8, Globulin 2.3, Albumin/Globulin Ratio 2.1 H, Lipase 49 12/04/24 14:50 12/04/24 14:50 Orders (Tests/Meds): ED MEDICATIONS Generic Name Dose Route Start Last Admin Trade Name Freq PRN Reason Stop Dose Admin Ceftriaxone Sodium 1 gm/ 50 mls @ 100 mls/hr 12/04/24 15:15 12/04/24 15:27 Sodium Chloride IV 12/14/24 15:14 100 mls/hr Q24H ELIZABETH Administration Discontinued Medications Generic Name Dose Route Start Last Admin Trade Name Freq PRN Reason Stop Dose Admin Lactated Ringer's 1,000 mls @ 999 mls/hr 12/04/24 15:36 12/04/24 15:44 Lactated Ringer's 1000 Ml Bag IV 12/04/24 16:36 999 mls/hr .Q1H1M ONE Administration Iopamidol 75 ml 12/04/24 16:16 12/04/24 16:23 Iopamidol-370 (76%);100ml Bottle IV 12/04/24 16:17 75 ml ONCE ONE Administration Morphine Sulfate 4 mg 12/04/24 15:10 12/04/24 15:28 Morphine 4mg/Ml Syringe IV 12/04/24 15:11 4 mg ONCE ONE Administration Ondansetron HCl 4 mg 12/04/24 15:10 12/04/24 15:28 Ondansetron 4mg/2ml Vial IV 12/04/24 15:11 4 mg ONCE ONE Administration Sodium Chloride 10 ml 12/04/24 16:16 12/04/24 16:22 Sodium Chloride 0.9% 10ml Syr (Rad Only) IV 12/04/24 16:17 10 ml ONCE ONE Administration ORDERS Category Date Time Status CT abdomen pelvis w con Stat Cat Scan 12/04/24 16:02 Completed Complete Blood Count Auto Diff Stat Lab 12/04/24 14:50 Completed Comprehensive Metabolic Panel Stat Lab 12/04/24 14:50 Completed Lactic Acid Stat Lab 12/04/24 14:50 Completed Lipase Stat Lab 12/04/24 14:50 Completed Urinalysis and Microscopic Stat Lab 12/04/24 14:46 Received Blood Culture Stat Micro 12/04/24 14:50 Received Medical Decision Narrative: 69-year-old male well-known to this emergency department for numerous visits due to urinary complaints presenting with rigors, vomiting, inability to tolerate medications at home. Patient states that he was discharged last night and picked up his p.o. antibiotics today, was unable to tolerate them and vomited shortly after taking it. Has been largely unable to tolerate any p.o. intake. Try to take Zofran, but threw up shortly after that as well. No objective fevers, but has generalized bodyaches, generalized weakness, abdominal cramping, but urinary symptoms have largely improved. Came in for further evaluation given offered admission yesterday, 12/03, declined and wanted to try outpatient management first. History was obtained via conversation with patient, chart review. On arrival, patient hemodynamically stable, alert, oriented x4, appropriate, GCS 15, moving all extremities spontaneously, pupils equal and reactive to light. Full physical exam performed and significant for very clinically well-appearing male no acute distress, he is mildly tachycardic, but hypertensive. Afebrile. Speaking full sentences and abdomen is nonperitonitic. Differential includes urinary tract infection, pyelonephritis, sepsis, metabolic abnormality, TAMMIE among others. Patient placed on continuous cardiac monitoring and continuous pulse ox with initial blood pressure 178/76, heart rate 102, saturation 98% on room air. Patient was given fluids, Zofran, ceftriaxone for symptomatic management and correction of underlying abnormalities. Workup independently interpreted and significant for increased leukocytosis right around 19,000 up from just over 15,000 yesterday, 12/03. It is relatively neutrophilic and monocytemic. Chemistry with TAMMIE. Lactate negative. UA with similar findings from yesterday, protein, blood, nitrates, leukocyte esterase, bacteria. CT scan of the abdomen and pelvis was considered initially, but deemed unnecessary due to nonperitoneal signs on physical exam, very well-appearing patient, numerous recent CT scans with no evidence of obstructive pathology or pending obstructive pathology, and better explained by underlying urinary tract infection versus pyelonephritis. On reevaluation, patient vomiting, Zofran administered. Tissue perfusion reassessment performed within 3 hours, patient mentating, following commands, good capillary refill and hemodynamically stable. I talked to hospital medicine, he stated that he would prefer to get a CT scan to see what was going on with the right kidney again prior to admission. CT scan obtained. On independent interpretation, stable from previous exam with contrast residual on the right ureter. Further conversation had with hospital medicine, stated that patient needs to be transferred for urologic evaluation. I contacted [facility] and spoke to Drs. Suarez and Kareem. Graciously accepted in transfer. Given patient presentation, workup, history, this most likely represents urosepsis in the setting of pyelonephritis and chronic right sided UPJ obstruction. Because patient high risk for clinical decompensation if discharged, deemed appropriate for transfer and inpatient admission. Results were relayed to patient who voiced understanding and patient was agreeable to transfer, inpatient admission, and management. Patient was graciously accepted and transferred to [facility] for further definitive management, under Dr. Suarez. Water Treatment Plant Engineer disclaimer Much of this encounter note is an electronic translator/interpreter spoken language to printed text. Electronic translator/interpreter of the spoken language may permit errors. Although I have reviewed the note, some errors may still exist. <Shellie Pack MD - Last Filed: 12/04/24 15:44> Vital Signs: 12/04/24 14:25 Temperature 98.5 F Temperature Source Oral Pulse Rate [Left Radial] 102 H Respiratory Rate 17 Blood Pressure [Right Arm] 178/76 H Blood Pressure Mean [Right Arm] 110 Blood Pressure Source [Right Arm] Automatic Cuff Blood Pressure Position [Right Arm] Sitting 02 Sat by Pulse Oximetry 98 Oxygen Delivery Method Room Air Lab Data Lab Results 12/04/24 14:50: WBC 18.8 H, RBC 4.62, Hgb 14.6, Hct 42.1, MCV 91.1, MCH 31.6 H, MCHC 34.7, RDW 13.0, Plt Count 191, MPV 11.0 H, Neut % (Auto) 85.7 H, Lymph % (Auto) 3.6 L, Canyon % (Auto) 9.7 H, Eos % (Auto) 0.1, Baso % (Auto) 0.3, Neut # (Auto) 16.1 H, Lymph # (Auto) 0.7, Canyon # (Auto) 1.8 H, Eos # (Auto) 0.0, Baso # (Auto) 0.1, Total Counted 100, Neutrophils % (Manual) 88 H, Lymphocytes % (Manual) 4 L, Monocytes % (Manual) 8, Platelet Estimate Normal, RBC Morphology Normal, Sodium 133 L, Potassium 4.4, Chloride 98, Carbon Dioxide 22, Anion Gap 17.4 H, BUN 25 H, Creatinine 1.50 H, Estimated Creat Clear 46, Estimated GFR 46 L, Est GFR ( Amer) 56 L, Glucose 127 H, Lactate 2.1, Calcium 9.4, Total Bilirubin 1.1, AST 32, ALT 23, Alkaline Phosphatase 72, Total Protein 7.1, Albumin 4.8, Globulin 2.3, Albumin/Globulin Ratio 2.1 H, Lipase 49 Orders (Tests/Meds): ED MEDICATIONS Generic Name Dose Route Start Last Admin Trade Name Freq PRN Reason Stop Dose Admin Ceftriaxone Sodium 1 gm/ 50 mls @ 100 mls/hr 12/04/24 15:15 12/04/24 15:27 Sodium Chloride IV 12/14/24 15:14 100 mls/hr Q24H ELIZABETH Administration Discontinued Medications Generic Name Dose Route Start Last Admin Trade Name Freq PRN Reason Stop Dose Admin Lactated Ringer's 1,000 mls @ 999 mls/hr 12/04/24 15:36 12/04/24 15:44 Lactated Ringer's 1000 Ml Bag IV 12/04/24 16:36 999 mls/hr .Q1H1M ONE Administration Iopamidol 75 ml 12/04/24 16:16 12/04/24 16:23 Iopamidol-370 (76%);100ml Bottle IV 12/04/24 16:17 75 ml ONCE ONE Administration Morphine Sulfate 4 mg 12/04/24 15:10 12/04/24 15:28 Morphine 4mg/Ml Syringe IV 12/04/24 15:11 4 mg ONCE ONE Administration Ondansetron HCl 4 mg 12/04/24 15:10 12/04/24 15:28 Ondansetron 4mg/2ml Vial IV 12/04/24 15:11 4 mg ONCE ONE Administration Sodium Chloride 10 ml 12/04/24 16:16 12/04/24 16:22 Sodium Chloride 0.9% 10ml Syr (Rad Only) IV 12/04/24 16:17 10 ml ONCE ONE Administration ORDERS Category Date Time Status CT abdomen pelvis w con Stat Cat Scan 12/04/24 16:02 Completed Complete Blood Count Auto Diff Stat Lab 12/04/24 14:50 Completed Comprehensive Metabolic Panel Stat Lab 12/04/24 14:50 Completed Lactic Acid Stat Lab 12/04/24 14:50 Completed Lipase Stat Lab 12/04/24 14:50 Completed Urinalysis and Microscopic Stat Lab 12/04/24 14:46 Received Blood Culture Stat Micro 12/04/24 14:50 Received Medical Decision Narrative: 69-year-old male well-known to this emergency department for numerous visits due to urinary complaints presenting with rigors, vomiting, inability to tolerate medications at home. Patient states that he was discharged last night and picked up his p.o. antibiotics today, was unable to tolerate them and vomited shortly after taking it. Has been largely unable to tolerate any p.o. intake. Try to take Zofran, but threw up shortly after that as well. No objective fevers, but has generalized bodyaches, generalized weakness, abdominal cramping, but urinary symptoms have largely improved. Came in for further evaluation given offered admission yesterday, 12/03, declined and wanted to try outpatient management first. History was obtained via conversation with patient, chart review. On arrival, patient hemodynamically stable, alert, [oriented x4, ][appropriate, ]GCS [15], moving all extremities spontaneously, pupils equal and reactive to light. Full physical exam performed and significant for very clinically well-appearing male no acute distress, he is mildly tachycardic, but hypertensive. Afebrile. Speaking full sentences and abdomen is nonperitonitic. Differential includes urinary tract infection, pyelonephritis, sepsis, metabolic abnormality, TAMMIE among others. Patient placed on continuous cardiac monitoring and continuous pulse ox with initial blood pressure 178/76, heart rate 102, saturation 98% on room air. Patient was given fluids, Zofran, ceftriaxone for symptomatic management[ and correction of underlying abnormalities]. Workup independently interpreted and significant for increased leukocytosis right around 19,000 up from just over 15,000 yesterday, 12/03. It is relatively neutrophilic and monocytemic. Chemistry with []. CT scan of the abdomen and pelvis was considered, but deemed unnecessary due to nonperitoneal signs on for no evidence of tonsillitis, exudate, pharyngeal erythema, uvular deviation, palatal swelling, trismus, external neck swelling, submental induration, dental abscess, angioedema, or other abnormal donte pharyngeal findings, clinically stable patient, numerous recent CT scans with no evidence of obstructive pathology or pending obstructive pathology, and better explained by underlying urinary tract infection versus Mario. On reevaluation, [additional tests/treatment]. [Tissue perfusion reassessment performed within 3 hours, patient mentating, following commands, good capillary refill and hemodynamically stable.] [Consultants] [obs] Given patient presentation, workup, history, this most likely represents []. Less likely []. [SDH] Water Treatment Plant Engineer disclaimer Much of this encounter note is an electronic translator/interpreter spoken language to printed text. Electronic translator/interpreter of the spoken language may permit errors. Although I have reviewed the note, some errors may still exist. I was consulted by the JACOB, and we discussed the complexity of problems being addressed. I approved the treatment and management plan for this patient's care in the emergency department, thus performing a substantial portion of the medical decision making. Shellie Pack MD Critical Care <Mateusz Bonilla MD - Last Filed: 12/04/24 17:28> Critical Care Time Critical Care Time: Yes (urologic, ID) Attestation: On 12/04/24, the high probability of a clinically significant, sudden or life threatening deterioration of the following system(s) required my full and direct attention, intervention and personal management. The time I documented below is in addition to time spent performing reported procedures but includes the following listed in this critical care notation. Total Time Total Critical Care Time: 60
[2024-12-04 15:38] LABS: Alanine Aminotransferase 23 U/L (12-78); Blood Urea Nitrogen 25 mg/dl (9-20); Creatinine Clearance Estimated 46 mL/min (50-200); Estimated Glomerular Filt Rate 46 ml/min (>60); GFR (African American) 56 ML/MIN (>60)
[2024-12-04 15:39] LABS: Albumin/Globulin Ratio 2.1 (1.1-1.8); Alkaline Phosphatase 72 U/L (38-126); Anion Gap 17.4 mEq/L (5-15); Aspartate Amino Transferase 32 U/L (17-59); Bilirubin,Total 1.1 mg/dl (0.2-1.3); Calcium 9.4 mg/dl (8.4-10.2); Carbon Dioxide 22 mmol/L (22.0-30.0); Globulin 2.3 g/dL (1.3-3.2); Glucose 127 mg/dl (74-100); Total Protein,Serum 7.1 g/dl (6.3-8.2)
[2024-12-04] MEDS: LACTATED RINGERS 1000ML 1,000 ML 999 ML IV ×2 (15:44→18:40)
--- NOTE | 2024-12-04 15:59 | PC.NURSE ---
DR MARROQUIN SPEAKING WITH HOSPITALIST
--- NOTE | 2024-12-04 16:02 | CT_ITS ---
PROCEDURE INFORMATION: Exam: CT Abdomen And Pelvis With Contrast Exam date and time: 12/04/2024 4:16 PM Age: 69 years old Clinical indication: Other: Urinary retention; Additional info: Urinary retention eval for hydro TECHNIQUE: Imaging protocol: Computed tomography of the abdomen and pelvis with contrast. Radiation optimization: All CT scans at this facility use at least one of these dose optimization techniques: automated exposure control; mA and/or kV adjustment per patient size (includes targeted exams where dose is matched to clinical indication); or iterative reconstruction. Contrast material: ISOVUE; Contrast volume: 75 ml; Contrast route: IV; COMPARISON: CT ABDOMEN PELVIS W CON 12/01/2024 6:35 AM FINDINGS: Lungs: Lung bases are clear. Liver: Mild fatty infiltration throughout the liver. No masses or enlargement detected. Gallbladder and biliary ducts: Normal. No calcified stones. No ductal dilation. Pancreas: Normal. No ductal dilation. Spleen: Normal. No splenomegaly. Adrenal glands: Normal. No mass. Kidneys and ureters: There is contrast within both renal collecting systems presumed secondary to prior CT injection as well as retrograde pyelography. There is severe right-sided hydronephrosis ending at the ureteropelvic junction redemonstrated likely secondary to UPJ stenosis. Findings result in mildly delayed heterogeneous nephrogram. Portions of the right mid and distal right ureter appears mildly dilated unchanged and difficult to further assess pseudo obscuring metallic artifact. Left renal collecting system is not dilated. 3 cm exophytic cortical cyst midpole left kidney redemonstrated.. Stomach and bowel: Scattered diverticuli large bowel without evidence of diverticulitis. Appendix: No evidence of appendicitis. Intraperitoneal space: Unremarkable. No free air. No significant fluid collection. Vasculature: Scattered atherosclerotic changes of the abdominal aorta and iliac vessels. No aortic aneurysm. Lymph nodes: Unremarkable. No enlarged lymph nodes. Urinary bladder: Urinary bladder is obscured by metallic artifact emanating from patient's bilateral hip replacements limiting assessment. There is a small amount of intravesicular air presumably related to the prior urological procedure. Reproductive: Prostate gland is also partially obscured and appears enlarged. Bones/joints: Moderate degenerative changes L5-S1. Prior bilateral hip replacements. No acute bony abnormalities. Soft tissues: Unremarkable. IMPRESSION: 1. Marked right-sided hydronephrosis unchanged that appears secondary to UPJ stenosis resulting in mild delayed heterogeneous nephrogram. 2. There is mild dilatation of the mid-distal right ureter difficult to assess due to obscuring metallic artifact, possibly secondary to enlarged prostate gland.. 3. Limited assessment of the urinary bladder.
--- NOTE | 2024-12-04 16:10 | PC.NURSE ---
PT TO CT
[2024-12-04] MEDS: SODIUM CHLORIDE 0.9% 10ML SYR (RAD ONLY) 10 ML IV (16:22)
[2024-12-04] MEDS: IOPAMIDOL-370 (76%);100ML BOTTLE 75 ML IV (16:23)
--- NOTE | 2024-12-04 17:08 | PC.NURSE ---
Contacted [facility] in regards to transfer for this patient, they will call us back.
[2024-12-04 17:15] LABS: Blood, Urine 3+ (Negative); Glucose,Urine (UA) TRACE (Negative); Ketones,Urine 2+ (Negative); Leukocyte Esterase,Urine TRACE (Negative); Nitrate,Urine POSITIVE (Negative); PH,Urine 5.5 (5.0-8.5); Protein,Urine 3+ (Negative); Specific Gravity, Urine 1.025 (1.005-1.030)
--- NOTE | 2024-12-04 17:15 | PC.NURSE ---
DR MARROQUIN SPEAKING WITH [facility]
[2024-12-04 17:20] LABS: Appearance,Urine Turbid (Clear); Bilirubin,Urine Negative (Negative); Color,Urine Red (Yellow)
[2024-12-04 17:22] VITALS: BP 113/72; PULSE 98; O2SAT 95
[2024-12-04 17:31] VITALS: BP 125/64; PULSE 102; O2SAT 96
[2024-12-04 17:32] LABS: Bacteria,Urine Trace /lpf; RBC,Urine TNTC #/hpf (0-3); Squamous Epithelial Cell,Urine Occasional #/hpf (0-5)
[2024-12-04 18:00] VITALS: BP 129/71; PULSE 89; RESP 16; O2SAT 97
--- NOTE | 2024-12-04 18:10 | PC.NURSE ---
[facility] aware of transfer to [facility]
--- NOTE | 2024-12-04 18:15 | PC.NURSE ---
Called report to Radha Roberts ED Charge Nurse
--- NOTE | 2024-12-04 18:21 | PC.NURSE ---
[facility] NOTIFIED OF TRANSFER TO ED
[2024-12-04] MEDS: ACETAMINOPHEN 1,000MG/100ML VIAL 1000 MG IV (18:39)
[2024-12-04 18:57] VITALS: BP 122/73; PULSE 84; RESP 17; TEMP 36.8; O2SAT 99
[2024-12-04 19:16] LABS: Reflex Lactic Add Lactic Reflex
== END 2024-12-04 19:18 | disposition short-term general hospital (02) ==
PROVIDERS: Student in an Organized Health Care Education/Training Program; Emergency Provider Emergency Medicine; PCP Nurse Practitioner Family
DX: N12 Tubulo-interstitial nephritis, not specified as acute or chronic (principal); A41.9 Sepsis, unspecified organism
CPT/HCPCS: 74177; 80053; 81001; 83605; 83690; 85007; 85025; 85027; 87040; 96361; 96374; 96375; 99285; J0131; J0696; J2270; J2405; J7120; Q9967

== ENCOUNTER 2024-12-31 22:52 | Emergency (ER) | payer MEDICARE, OTHER, SELFPAY ==
[2024-12-31 22:55] VITALS: BP 129/93; PULSE 87; RESP 18; TEMP 36.2; O2SAT 99; BMI 21.5
[2024-12-31 23:03] VITALS: BP 149/97; PULSE 89; RESP 18; O2SAT 98
--- NOTE | 2024-12-31 23:11 | ED_ITS ---
Discharge Plan Disposition Patient Disposition: Xfer Other Prescriptions Prescriptions: No Action tamsulosin 0.4 mg Capsule 0.8 mg PO HS 30 Days Qty: 60 0RF cefdinir 300 mg capsule 300 mg PO BID 10 Days Qty: 20 0RF ondansetron HCl 4 mg tablet 4 mg PO Q8H PRN (Reason: nausea and vomiting) 5 Days Qty: 30 0RF diclofenac sodium 1 % gel 1 ea TOPICAL BID Referrals Follow up/Referrals: Thiago Gregory APRN [Primary Care Provider] - See instructions Activity Restrictions/Add. Instructions Additional Instructions/Restrictions: Please proceed directly to the [facility] emergency department for further assessment. Clinical Impressions Clinical Impression: Acute pyelonephritis, Diverticulitis, Pelvic fluid collection, Free intraperitoneal air Stand Alone Forms Stand Alone Forms: Transfer Record - ED Instructions Patient Instructions: DI for Urinary Tract Infection (UTI), DI for Urinary Tract Infection in Children Print Language Print Language: Uzbek Discharge ED Provider: Shimon Horvath Adult HPI General Chief complaint: Urogenital-Male Stated complaint: pain in right kidney Time Seen by Provider: 12/31/24 23:00 Mode of Arrival: Ambulatory Source of Information: Patient Description of Symptoms (Recalled from ER Triage Doc. by RN): Patient with significant kidney/urinary hx presents to the ER for right flank pain when he attempts to urinate. Patient states that he has has recent stent placement in the right ureter on 12/22 , with nash catheter placement. Patient catheter removed today by urologist. Patient has urinated 4x since removal but upon urination patient reports sharp pain in right flank area. History of Present Illness HPI narrative: 69-year-old male with extensive urologic history presents for further assessment. He has been having issues with his right ureter for months, had attempted stent placement that was aborted, had a percutaneous nephrostomy tube. He recently was admitted at and had bladder reconstructive surgery, had the ureter reattached and a stent placed and was admitted for for 5 days. He was discharged with a Nash catheter. He was seen by his urologist, Dr. Serna, in clinic today where he had a cystoscopy and his Nash was removed. He reports that he has been having intermittent right flank pain as well as intermittent right lower quadrant pain over the last few days. Denies any fever. He reports that he has been peeing small volumes today after the Nash was removed. He reports the pain in his right flank is sharp, intermittent, sometimes associated with urination. Related Data Home Medications ?Medication ?Instructions ?Recorded ?Confirmed diclofenac sodium 1 % topical gel 1 ea topical BID 12/04/24 12/04/24 Previous Rx's ?Medication ?Instructions ?Recorded tamsulosin 0.4 mg capsule 0.8 mg (2 x 0.4 mg) PO HS 30 days 09/30/24 #60 caps ondansetron HCl 4 mg tablet 4 mg PO Q8H PRN nausea and 12/02/24 vomiting 5 days #30 tabs cefdinir 300 mg capsule 300 mg PO BID 10 days #20 caps 12/03/24 Allergies Allergy/AdvReac Type Severity Reaction Status Date / Time prochlorperazine (From Allergy Other Verified 12/03/24 20:24 Compazine) [facility] Disclaimer: The information contained in this section may have been updated after the patient was seen, as this information can be updated by other users. Medical History (Updated 01/01/25 @ 03:27 by Shimon Horvath MD) Hypertension Patient new to facility Contact dermatitis Joint pain Hypertensive encephalopathy syndrome Encephalopathy Subcutaneous nodule of left thumb Tobacco dependence due to cigarettes Pain of left thumb Heberden's nodes of left hand Poison rashida dermatitis Shoulder pain, bilateral Fatigue Hydronephrosis Elevated PSA Hep C w/o coma, chronic Surgical History H/O prostate biopsy History of hip replacement Social History Smoking Status: Unknown if ever smoked second hand exposure: Yes alcohol intake: current substance use type: marijuana current occupational status: employed Travel in the last 8 weeks: Inside the [place] household members: spouse housing: house current occupational exposures/hazards: No caffeine: Yes Other Medical History Have you received the Flu Vaccine for this season: No Have you received the Pneumonia Vaccine: No ROS Obtained: Yes All systems reviewed & no additional complaints except as documented Physical Exam General General appearance: alert and in no apparent distress Head Head exam: atraumatic and normocephalic Eye Eye exam: Present normal appearance, PERRL and EOMI ENT ENT exam: Present normal oropharynx and normal external ear exam Neck Neck exam: Present normal inspection and full ROM Chest Chest inspection: Present normal inspection and symmetric chest wall rise; Absent tenderness Respiratory Respiratory exam: Present normal lung sounds bilaterally; Absent respiratory distress Cardiovascular Cardiovascular exam: Present regular rate and normal rhythm Abdominal Exam Abdominal exam: Present soft and tenderness (Mild, generalized); Absent distention or guarding Comment: Healing laparoscopic incisions noted, no significant tenderness or erythema or induration Extremities Exam Extremities exam: Present normal inspection; Absent edema or joint swelling Back Exam Back exam: Present normal inspection; Absent tenderness Neurological Exam Neurological exam: Present alert and oriented X3; Absent motor sensory deficit Psychiatric Psychiatric exam: Present normal affect and normal mood Skin Skin exam: Present warm, dry and normal color Lymphatic Lymphatic Findings: no adenopathy Medical Decision Making Medical Records Medical records reviewed: Yes I reviewed the patient's medical records. Screening: Per USPSTF and CDC recommendations, given the prevalence of disease in our region, it is our hospital?s policy to screen for HIV and viral Hepatitis for all patients aged 18 and over and those with ongoing risk factors. Pérez Inquiry Pt receiving controlled substance: No Pérez was queried for this patient: No Vital Signs: 12/31/24 22:55 12/31/24 23:03 01/01/25 03:32 Temperature 97.2 F L 97.8 F Temperature Source Temporal Artery Scan Oral Pulse Rate 89 79 Pulse Rate [Right] 87 Respiratory Rate 18 18 18 Blood Pressure 149/97 H 130/73 Blood Pressure [Right Arm] 129/93 H Blood Pressure Mean [Right Arm] 105 02 Sat by Pulse Oximetry 99 98 Oxygen Delivery Method Room Air Room Air Room Air Lab Data Lab results reviewed: Yes I reviewed the patient's lab results. Lab Results 12/31/24 23:13: Urine Color Yellow, Urine Appearance Cloudy, Urine pH 6.0, Ur Specific [place] 1.025, Urine Protein 3+ A, Urine Glucose (UA) Negative, Urine Ketones Negative, Urine Blood 2+ A, Urine Nitrate Negative, Urine Bilirubin Negative, Urine Urobilinogen 0.2, Ur Leukocyte Esterase 1+ A, Urine RBC 10-20, Urine WBC Tntc, Ur Squamous Epith Cells Occasional, Urine Bacteria 3+, Urine Mucus 2+, Urine Yeast 2+ 12/31/24 23:30: WBC 18.7 H, RBC 3.81 L, Hgb 12.1 L, Hct 35.0 L, MCV 91.9, MCH 31.8 H, MCHC 34.6, RDW 13.2, Plt Count 386, MPV 8.9, Neut % (Auto) 64.0, Lymph % (Auto) 21.3, Johnson % (Auto) 7.8, Eos % (Auto) 2.8, Baso % (Auto) 0.4, Neut # (Auto) 12.0 H, Lymph # (Auto) 4.0, Johnson # (Auto) 1.5 H, Eos # (Auto) 0.5 H, Baso # (Auto) 0.1, Total Counted 100, Neutrophils % (Manual) 61, Band Neutrophils % 4.0, Lymphocytes % (Manual) 23, Monocytes % (Manual) 7, Eosinophils % (Manual) 5 H, Platelet Estimate Normal, RBC Morphology Normal, Sodium 134 L, Potassium 4.3, Chloride 101, Carbon Dioxide 27, Anion Gap 10.3, BUN 17, Creatinine 0.60 L, Estimated Creat Clear 66, Estimated GFR 133, Est GFR ( Amer) 161, Glucose 120 H, Calcium 9.1, Total Bilirubin 0.5, AST 22, ALT 18, Alkaline Phosphatase 65, Total Protein 6.8, Albumin 3.6, Globulin 3.2, Albumin/Globulin Ratio 1.1 12/31/24 23:30 12/31/24 23:30 Orders (Tests/Meds): ED MEDICATIONS Discontinued Medications Generic Name Dose Route Start Last Admin Trade Name Freq PRN Reason Stop Dose Admin Fluconazole 200 mg 01/01/25 01:03 01/01/25 01:04 Fluconazole 100mg Tablet PO 01/01/25 01:04 200 mg ONCE ONE Administration Ceftriaxone Sodium 2 gm/ 100 mls @ 200 mls/hr 01/01/25 01:00 01/01/25 01:04 Sodium Chloride IV 01/11/25 00:59 200 mls/hr Q24H ELIZABETH Administration Piperacillin Sod/Tazobactam 100 mls @ 200 mls/hr 01/01/25 02:32 01/01/25 02:35 Sod 4.5 gm/ Sodium Chloride IV 01/01/25 03:01 200 mls/hr ONCE ONE Administration Iopamidol 75 ml 01/01/25 00:15 01/01/25 00:16 Iopamidol-370 (76%);100ml Bottle IV 01/01/25 00:16 75 ml ONCE ONE Administration Sodium Chloride 10 ml 01/01/25 00:15 01/01/25 00:16 Sodium Chloride 0.9% 10ml Syr (Rad Only) IV 01/31/25 00:14 10 ml NEEDED PRN Administration Maintain IV Site ORDERS Category Date Time Status CT abdomen pelvis w con Stat Cat Scan 12/31/24 23:18 Completed CBC w/Auto Diff [Complete Blood Count Auto Diff] Stat Lab 12/31/24 23:30 Completed CMP [Comprehensive Metabolic Panel] Stat Lab 12/31/24 23:30 Completed UA [Urinalysis and Microscopic] Stat Lab 12/31/24 23:13 Completed Blood Culture Stat Micro 01/01/25 00:00 Received Urine Culture Stat Micro 12/31/24 23:13 Received Medical Decision Narrative: 69-year-old male with extensive urologic history, recent bladder reconstruction, ureteral reconstruction, stent placement, Nash removed today presents for worsening intermittent flank pain and abdominal pain. History was obtained via interactive discussion with patient, chart review. On arrival, patient is [afebrile, hemodynamically stable, satting appropriately, alert, oriented x4, GCS 15], moving all extremities spontaneously. Full physical exam performed and significant for mild generalized abdominal tenderness without peritonitis, well- healing incisions Differential includes but is not limited to pyelonephritis, urinary retention, stent malfunction, postoperative infection. Bladder scan shows 34 mL. Workup initiated including CBC CMP UA blood cultures CT abdomen pelvis with IV contrast. On re-evaluation, patient [remains afebrile, HD stable.] Continues to be pain- free at this time. Laboratory workup independently interpreted by me and significant for leukocytosis with white count of 18.7. No significant electrolyte derangement, normal renal function. Urinalysis shows too numerous to count WBCs, 3+ bacteria, 2+ yeast. Nitrate negative. Imaging independently interpreted by me and significant for free air in the right upper quadrant (likely from recent surgery), patient also has air within the renal collecting system (likely from recent stent placement). Of note, patient also has sigmoid colitis and diverticulitis without localized free air noted. Most concerning, patient has a 5.4 x 4.2 cm loculated fluid collection within the mid pelvis. Overall, images in the pelvis are difficult to interpret due to patient's bilateral hip replacement.. See radiology read for full review of final results. Given patient history, exam and workup, patient's presentation most likely represents pyelonephritis, diverticulitis, pelvic fluid collection which could be related to recent operative intervention or could be related to the diverticulitis. Patient also has free air and air within the renal collecting system which is likely related to recent operative interventions. I called and spoke with transfer center who accepted the patient for further evaluation. While in the ER patient was initially given ceftriaxone and fluconazole for the pyelonephritis. It took a couple of hours for his CT results to return. After CT results returned, Zosyn was added for empiric Pseudomonas and anaerobic coverage given recent surgical intervention as well as diverticulitis. Procedures Risk/Benefits of Procedure(s) Were Explained: Yes Critical Care Critical Care Time Critical Care Time: No
--- NOTE | 2024-12-31 23:18 | CT_ITS ---
PROCEDURE INFORMATION: Exam: CT Abdomen And Pelvis With Contrast Exam date and time: 01/01/2025 12:07 AM Age: 69 years old Clinical indication: Abdominal pain; Additional info: Intermittent flank pain recent ureteral/bladder SX TECHNIQUE: Imaging protocol: Computed tomography of the abdomen and pelvis with contrast. Radiation optimization: All CT scans at this facility use at least one of these dose optimization techniques: automated exposure control; mA and/or kV adjustment per patient size (includes targeted exams where dose is matched to clinical indication); or iterative reconstruction. Contrast material: ISOVUE; Contrast volume: 75 ml; Contrast route: IV; COMPARISON: CT ABDOMEN PELVIS W CON 12/04/2024 4:16 PM FINDINGS: Lungs: Visualized lung bases are clear. Liver: Normal. No mass. Gallbladder and biliary ducts: Normal. No calcified stones. No ductal dilation. Pancreas: Normal. No ductal dilation. Spleen: Normal. No splenomegaly. Adrenal glands: Normal. No mass. Kidneys and ureters: Normal. No hydronephrosis. New right-sided nephroureteral stent with decreased hydroureteronephrosis. There is right-sided perirenal and periureteral inflammation as well as hyperenhancement of the proximal urothelium and gas in the proximal collecting system which may be postoperative in etiology. However, superimposed pyelonephritis can not be excluded. 3.4 x 3.6 cm likely benign left renal cyst requiring no further evaluation. Stomach and bowel: There is diffuse circumferential wall thickening of the sigmoid colon suspicious for colitis. There is underlying sigmoid diverticulosis with pericolonic inflammation partially obscured which may represent acute diverticulitis. Appendix: No evidence of appendicitis. Intraperitoneal space: New free air in the retroperitoneum of the right upper quadrant extending into Boo's pouch of unclear etiology which may be iatrogenic or secondary to microperforation of a viscus. Vasculature: Unremarkable. No abdominal aortic aneurysm. Lymph nodes: Unremarkable. No enlarged lymph nodes. Urinary bladder: Bladder obscured by metallic artifact. Reproductive: Prostatic hypertrophy obscured by metallic artifact. Bones/joints: Bilateral hip arthroplasty is present. Soft tissues: Unremarkable. Other findings: Loculated fluid collection without definite rim enhancement in the mid pelvis measuring 5.4 x 4.2 cm. IMPRESSION: 1. New free air in the retroperitoneum of the right upper quadrant which may be iatrogenic or secondary to microperforated viscus of unclear etiology. 2. Sigmoid colitis and suspected diverticulitis may be potential source for micro- perforation and free air discussed above. Enteric assessment is limited in the absence of luminal contrast. 3. New right-sided nephroureteral stent with decreased hydroureteronephrosis demonstrating perirenal and periureteral inflammation, hyperenhancement of the urothelium and gas in the proximal collecting system which may be iatrogenic or secondary to pyelonephritis depending on clinical context. 4. New 5.4 x 4.2 cm loculated fluid collection mid pelvis without definite rim enhancement to suggest organized abscess at this time. 5. Bilateral hip replacements limits pelvic assessment.
[2024-12-31 23:23] LABS: Microscopic, Urine URINE MICROSCOPIC (MICROSCOPIC)
[2024-12-31 23:28] LABS: Bilirubin,Urine Negative (Negative); Blood, Urine 2+ (Negative); Color,Urine YELLOW (Yellow); Glucose,Urine (UA) Negative (Negative); Ketones,Urine Negative (Negative); Leukocyte Esterase,Urine 1+ (Negative); Nitrate,Urine Negative (Negative); Protein,Urine 3+ (Negative); Specific Gravity, Urine 1.025 (1.005-1.030); Urobilinogen,Urine 0.2 EU/dl (0.2)
[2024-12-31 23:37] LABS: Basophils # 0.1 K/mm3 (0-0.2); Basophils % 0.4 % (0.1-2.0); Eosinophils # 0.5 K/mm3 (0.0-0.4); Eosinophils % 2.8 % (0.1-12.0); Hemoglobin 12.1 g/dL (14.1-18.0); Lymphocytes % 21.3 % (10-50); MANUAL DIFFERENTIAL MANUAL DIFFERENTIAL (MANUAL DIFF); Mean Corpuscular HGB Conc 34.6 g/dL (31.8-35.4); Mean Corpuscular Hemoglobin 31.8 pg (27.0-31.2); Mean Corpuscular Volume 91.9 fl (80-94); Mean Platelet Volume 8.9 fl (7.4-10.4); Monocytes # 1.5 K/mm3 (0.1-1.0); Monocytes % 7.8 % (1.7-9.3); Platelet Count 386 K/mm3 (142-424); Red Blood Count 3.81 M/mm3 (4.60-6.20); Red Cell Distribution Width 13.2 % (11.5-17.5); White Blood Count 18.7 K/mm3 (4.8-10.8)
[2024-12-31 23:44] LABS: Appearance,Urine Cloudy (Clear); Bacteria,Urine 3+ /lpf; Squamous Epithelial Cell,Urine Occasional #/hpf (0-5); WBC,Urine TNTC #/hpf (0-3); Yeast,Urine 2+ /lpf
[2024-12-31 23:45] LABS: Mucus,Urine 2+ /lpf
[2024-12-31 23:45] LABS: Alanine Aminotransferase 18 U/L (12-78); Albumin Level 3.6 g/dl (3.5-5.0); Albumin/Globulin Ratio 1.1 (1.1-1.8); Alkaline Phosphatase 65 U/L (38-126); Anion Gap 10.3 mEq/L (5-15); Aspartate Amino Transferase 22 U/L (17-59); Bilirubin,Total 0.5 mg/dl (0.2-1.3); Blood Urea Nitrogen 17 mg/dl (9-20); Calcium 9.1 mg/dl (8.4-10.2); Carbon Dioxide 27 mmol/L (22.0-30.0); Chloride 101 mmol/L (98-107); Creatinine Clearance Estimated 66 mL/min (50-200); Estimated Glomerular Filt Rate 133 ml/min (>60); GFR (African American) 161 ML/MIN (>60); Globulin 3.2 g/dL (1.3-3.2); Glucose 120 mg/dl (74-100); Potassium 4.3 mmoL/L (3.5-5.1); Sodium 134 mmol/L (136-145); Total Protein,Serum 6.8 g/dl (6.3-8.2)
--- NOTE | 2025-01-01 00:10 | PC.NURSE ---
pt returned from radiology at this time.
[2025-01-01] MEDS: SODIUM CHLORIDE 0.9% 10ML SYR (RAD ONLY) 10 ML IV (00:16)
[2025-01-01] MEDS: IOPAMIDOL-370 (76%);100ML BOTTLE 75 ML IV (00:16)
--- NOTE | 2025-01-01 00:31 | PC.NURSE ---
cultures collected and sent per [facility] tech
[2025-01-01] MEDS: FLUCONAZOLE 100MG TABLET 200 MG PO (01:04)
[2025-01-01] MEDS: CEFTRIAXONE SODIUM 2 GM in 0.9 % SODIUM CHLORIDE 100 ML IV (01:04)
[2025-01-01 01:18] LABS: Eosinophils % 5 % (0-3); Lymphocytes % 23 % (10-50); Monocytes % 7 % (2-9); Neutrophils % 61 % (42-76); Total Cells Counted 100
[2025-01-01 01:19] LABS: Platelet Estimate Normal; RBC Morphology Normal
--- NOTE | 2025-01-01 02:05 | PC.NURSE ---
Spoke with [facility] about an update on this pt. also said he was okay with speaking with the transferring physician, Dr. Horvath speaking with [facility] doctor at this time
--- NOTE | 2025-01-01 02:24 | PC.NURSE ---
REPORT CALLED TO FARTUN YOUNG AT [facility]
[2025-01-01] MEDS: PIPERACILLIN/TAZO 4.5 GM in 0.9 % SODIUM CHLORIDE 100 ML IV (02:35)
[2025-01-01 03:32] VITALS: BP 130/73; PULSE 79; RESP 18; TEMP 36.6; O2SAT 97
== END 2025-01-01 03:33 | disposition other institution (70) ==
PROVIDERS: Emergency Provider Emergency Medicine; PCP Nurse Practitioner Family
DX: K57.92 Diverticulitis of intestine, part unspecified, without perforation or abscess without bleeding (principal); N10 Acute pyelonephritis; R10.31 Right lower quadrant pain; R33.9 Retention of urine, unspecified; K66.8 Other specified disorders of peritoneum; R18.8 Other ascites
CPT/HCPCS: 74177; 80053; 81001; 85007; 85025; 85027; 87040; 87086; 96365; 96367; 99285; J0696; J2543; Q9967

== ENCOUNTER 2025-01-30 22:39 | Emergency (ER) | payer MEDICARE, OTHER, SELFPAY ==
--- OUTSIDE RECORDS SUMMARY | 2025-01-30 22:46 | XMS_ITS | Data Portability ---
Author Organization OMERO JAIMES 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 Plan of Treatment Reminders Order Date Submit Date Provider Last Modified By Organization Details Last Modified Time Details Appointments None recorded . Lab PSA, total + free, serum or plasma 024 01/08/20 24 [email or web address] [facility] ([facility]), [address] [place] [address] [address], [place], [address], 4 07:47:32 PSA, serum or plasma 023 06/14/20 23 [email or web address] Not available 3 07:08:59 Referral None recorded . Procedures None recorded . Surgeries None recorded . Imaging None recorded . Medication Orders None recorded . Patient TargetsNo targets recorded. Patient InstructionsNo instructions recorded. Reason for Referral None Reported. Results Created Date Observation Date Name Description Value Unit Range Abnormal Flag Note LastModifiedBy Organization Detail LastModifiedTime Result Notes None recorded. Problems Name Problem SNOMED Code Status Onset Date Resolution Date Notes Provider Name and Address Organization Details Recorded Time Chronic hepatitis C 328932225 Active 2022 OMERO Tyler [facility] & [place] 3 13:11:51 Hypertensive disorder 76559602 Active 2022 OMERO Tyler [facility] & [place] 3 13:13:13 Problem Notes None recorded. Procedures Surgical History Date Name Laterality Status Provider Name and Address Organization Details Recorded Time replacement of bilateral hip joints completed Elvis JAIMES [facility] & [place] 06/14/2023 13:12:54 [facility] [place] 06/14/2023 13:13:58 Imaging Results None recorded. Procedure Notes None recorded. Medical Equipment None Reported. Allergies Allergen ID Allergen Name Allergen Category Reaction Reaction Severity Criticality Documentation Date Start Date Code Code System Note Provider Name and Address Organization Details Recorded Time 05332 prochlorp erazine medicatio n Not available Not available Not available 06/14/2023 8704 RxNorm Elvis tello, OMERO Adams [facility] & [place] 13:11:26 Medications Name Sig Start Date Stop Date Status Note LastModified by Organization Details LastModified Time celecoxib 200 mg capsule active Not Available Not Available Not Available triamcinolone acetonide 0.1 % topical cream active Not Available Not Availabl e Not Available levofloxacin 500 mg tablet Take 1 tablet every 24 hours by oral route for 3 days. active Not Available Not Available No t Available methylprednisolo ne 4 mg tablets in a dose pack active Not Available Not Availab le Not Available lisinopril 40 mg tablet active Not Available Not Available Not Available lisinopril active Not Available Not Av ailable Not Available diclofenac 1 % topical gel active Not Available Not Available Not Available Epclusa 400 mg-100 mg tablet TAKE 1 TABLET BY MOUTH EVERY DAY FOR 12 WEEKS active Not Available Not Available No t Available Vitals Date Recorded Body height Body mass index (BMI) Body weight Body temperature Provider Name and Address Organization Details Last Updated DateTime 01/08/2024 175.26 cm 25.1 kg/m2 89781.7 g 97.5 [degF] [facility] [place] 01/08/2024 13:50:45 Date Recorded Body height Body mass index (BMI) Body weight Body temperature Provider Name and Address Organization Details Last Updated DateTime 04/08/2024 175.26 cm 25.1 kg/m2 47959.7 g 98 [degF] Analisa Adams [facility] & [place] 04/08/2024 13:41:34 Social History Question Answer Notes LastModified by Organizat ion Details LastModified Time Tobacco Smoking Status Former Smoker Elvis tello, [place] - [facility] & [place] 06/14/2023 13:12:39 What Is Your Level Of Alcohol Consumption? Occasional [email or web address] Information not available 06/14/2023 Sex: Unknown Functional Status None recorded. Mental Status None recorded. Family History Nothing Reported. Medical History No medical history recorded. Past Encounters Encounter ID Performer Location Encounter Start Date Encounter Closed Date Diagnosis/Indication Diagnosis SNOMED-CT Code Diagnosis ICD10 Code Diagnosis Note [id number] Nik Steiner Jr, MD [facility] [place] [address] 5 06/14/2023 13:38:48 06/14/2023 13:56:42 Prostate specific antigen above reference range 403206678 R97.20 68-year-ol d white male with PSA of 6.7. Prostate examinatio n is benign. We discussed various causes of elevated PSA and treatment options including close monitoring versus prostate biopsy. Patient is comfortabl e with watchful waiting and will repeat a PSA in 6 months. [id number] Nik Steiner Jr, MD [facility] [place] [id number] 01/08/2024 13:43:13 01/08/2024 14:43:22 Prostate specific antigen above reference range 385022518 R97.20 68-year-ol d white male with history of elevated PSA. His recent PSA was higher at 8.2 compared to the PSA of 6.7 in April 2023. We discussed possible causes of an elevated PSA including prostate cancer, BPH and prostatiti s. Currently has no symptoms of the ladder. We discussed prostate biopsy and possible complicati ons. Patient is currently caring for his ill and can not be away for any significan t amount time. We will repeat a free and total PSA in 3 months. [id number] Nik Steiner Jr, MD [facility] [place] [id number] 04/08/2024 13:33:18 04/08/2024 14:38:56 Prostate specific antigen above reference range 826105320 R97.20 68-year-ol d white male with history of elevated PSA. His recent PSA was higher at 8.8 compared to the PSA of 6.7 in April 2023. free PSA puts him at a 35% risk of prostate cancer.We discussed possible causes of an elevated PSA including prostate cancer, BPH and prostatiti s. Currently has no symptoms of the ladder. We discussed prostate biopsy and possible complicati ons. Patient wishes to proceed with prostate biopsy. We will set this up under general anesthesia at his earliest convenienc e. Health Concerns Section Related Observation LastModified by Organization Detai ls LastModified Time None Recorded Concern Status LastModified by Organization Details LastModified Time None Recorded Advance Directives Directive None Recorded Payers Encounter Date Sequence Insurance Name Policy Number Policy Couch Covered Member ID Couch Member ID Guarantor Name 06/14/2023 1 [place]ARE[place] ([place]ICARE[place] Parth Pratt [id number] Parth Pratt 06/14/2023 2 [employer] [place] (MEDICARE SUPPLEMENT) Parth Ribera Pratt [id number] Parth Pratt 01/08/2024 1 [place] Parth Pratt [id number] Parth Pratt 01/08/2024 2 [employer] [place] (MEDICARE SUPPLEMENT) Parth Ribera Pratt [id number] Parth Pratt Notes Date Note Type Note Provider Name and Address Organization Details Recorded Time 06/14/2023 text/html Patient is a 68-year-old white male referred for PSA elevation. His PSA was 6.7 on May 02. He is not aware of any previous PSAs. He denies a family history of prostate cancer. He denies any lower urinary tract symptoms. Nik Steiner Jr, MD [address] [place] [address], [address], [address], [facility] 06/28/2023 13:12:10 01/08/2024 text/html Patient is a 68-year-old white male with history of elevated PSA. He returns today for six-month checkup. His recent PSA was higher at 8.2. His PSA in April 2023 was 6.7. No previous PSAs are known. Prostate examination in May showed a 40 g prostate that was smooth and symmetric. Patient denies any lower urinary tract symptoms or symptoms of prostatitis. He is currently under lot of stress as his has been at [facility] for several weeks. Nik Steiner Jr, MD [address], [address], [place], [address], [facility] [place] & [place] 01/08/2024 14:35:01 04/08/2024 text/html Patient is a 69-year-old white female with history elevated PSA. He returns today with a new PSA. It was 8.8 with a free PSA putting him at a 35% chance of prostate cancer. Previous PSA 3 months ago was 8.2. His PSA was 6.7 in April 2023. He has not had a prostate biopsy. He has been caring for his who is ill but is now freed up for prostate biopsy. Nik Steiner Jr, MD [address] [place] [address], [address], [place], [address], [place] - [facility] - [place] & [place] 04/08/2024 15:18:21
[2025-01-30 22:50] VITALS: BP 175/112; PULSE 86; RESP 16; TEMP 36.6; O2SAT 99; BMI 21.9
[2025-01-30 22:59] LABS: Microscopic, Urine URINE MICROSCOPIC (MICROSCOPIC)
[2025-01-30 23:00] VITALS: BP 137/107; PULSE 77; O2SAT 98
--- NOTE | 2025-01-30 23:02 | ED_ITS ---
Discharge Plan Disposition Patient Disposition: Home, Self-Care Prescriptions Prescriptions: New sulfamethoxazole-trimethoprim [Bactrim DS] 800-160 mg tablet 1 tab PO BID 10 Days Qty: 20 0RF No Action tamsulosin 0.4 mg Capsule 0.8 mg PO HS 30 Days Qty: 60 0RF cefdinir 300 mg capsule 300 mg PO BID 10 Days Qty: 20 0RF ondansetron HCl 4 mg tablet 4 mg PO Q8H PRN (Reason: nausea and vomiting) 5 Days Qty: 30 0RF diclofenac sodium 1 % gel 1 ea TOPICAL BID Referrals Follow up/Referrals: Thiago Gregory APRN [Primary Care Provider] - See instructions Activity Restrictions/Add. Instructions Additional Instructions/Restrictions: Your urinalysis today is consistent with a urinary tract infection. Please follow-up with urologist with any significant worsening return to the emergency department with high fevers or other concerns. Clinical Impressions Clinical Impression: Complicated urinary tract infection, Urinary frequency Instructions Patient Instructions: DI for Urinary Tract Infection (UTI), DI for Urinary Tract Infection in Children Print Language Print Language: Brazilian Discharge ED Provider: Wisam Sands [facility] HPI General Chief complaint: Urogenital-Male Stated complaint: Poss UTI,painful urination Time Seen by Provider: 01/30/25 22:57 Mode of Arrival: Ambulatory Source of Information: Patient Description of Symptoms (Recalled from ER Triage Doc. by RN): Patient has had frequent urination since this morning; states he has a stent and has had uro. surgery and has another upcoming; states that he called his surgeon at and they suggested he come here to be checked for UTI History of Present Illness HPI narrative: Patient is a 70-year-old male presenting today with urinary frequency. Has a history of ureteral stricture and complicated urologic abnormalities in the past he is currently being followed by [facility] recently had a urethral stricture surgery and he is preparing for the next 1. He is not having any difficulty with getting all of his urine out but he is having increased urinary frequency called his surgeon Karlee contacted out they told him to come get evaluated for possible urinary tract infection. He has no other symptoms today. Denies any lesions at the tip of his penis denies any flank pain or fevers etc. Related Data Home Medications ?Medication ?Instructions ?Recorded ?Confirmed diclofenac sodium 1 % topical gel 1 ea topical BID 12/04/24 12/04/24 Previous Rx's ?Medication ?Instructions ?Recorded tamsulosin 0.4 mg capsule 0.8 mg (2 x 0.4 mg) PO HS 30 days 09/30/24 #60 caps ondansetron HCl 4 mg tablet 4 mg PO Q8H PRN nausea and 12/02/24 vomiting 5 days #30 tabs cefdinir 300 mg capsule 300 mg PO BID 10 days #20 caps 12/03/24 sulfamethoxazole 800 1 tab PO BID 10 days #20 tabs 01/30/25 mg-trimethoprim 160 mg tablet (Bactrim DS) Allergies Allergy/AdvReac Type Severity Reaction Status Date / Time prochlorperazine (From Allergy Other Verified 12/03/24 20:24 Compazine) [facility] Disclaimer: The information contained in this section may have been updated after the patient was seen, as this information can be updated by other users. Medical History (Updated 01/30/25 @ 23:21 by Wisam Sands MD) Hypertension Patient new to facility Contact dermatitis Joint pain Hypertensive encephalopathy syndrome Encephalopathy Subcutaneous nodule of left thumb Tobacco dependence due to cigarettes Pain of left thumb Heberden's nodes of left hand Poison rashida dermatitis Shoulder pain, bilateral Fatigue Hydronephrosis Elevated PSA Hep C w/o coma, chronic Surgical History H/O prostate biopsy History of hip replacement Social History Smoking Status: Current every day smoker second hand exposure: Yes alcohol intake: current substance use type: marijuana current occupational status: employed Travel in the last 8 weeks?: Inside the [place] household members: spouse housing: house current occupational exposures/hazards: No caffeine: Yes Have you lived/traveled outside US in past 30 days?: No Contact w/someone who lives/traveled outside US past 30 days?: No Exposure to someone with infectious disease in past 14 days?: No Do you have a fever (greater than 100.4 F or 38 C)?: No Have you tested positive for COVID-19?: No Exposed to someone with COVID-19 in past 14 days?: No Do you have a sore throat?: No Do you have a cough?: No Do you have any weakness?: No Do you have any diarrhea?: No Are you experiencing any unusual bleeding?: No Do you have any muscle aches/pain?: No Do you have any abdominal pain?: No Are you experiencing loss of taste or smell?: No Other Medical History Have you received the Flu Vaccine for this season: No Have you received the Pneumonia Vaccine: No ROS Obtained: Yes All systems reviewed & no additional complaints except as documented Physical Exam General General appearance: alert and in no apparent distress Respiratory Respiratory exam: Present normal lung sounds bilaterally Cardiovascular Cardiovascular exam: Present regular rate Abdominal Exam Abdominal exam: Present soft; Absent distention or tenderness Back Exam Back exam: Absent CVA tenderness (R) or CVA tenderness (L) Neurological Exam Neurological exam: Present alert and oriented X3 Medical Decision Making Medical Records Screening: Per USPSTF and CDC recommendations, given the prevalence of disease in our region, it is our hospital?s policy to screen for HIV and viral Hepatitis for all patients aged 18 and over and those with ongoing risk factors. Pérez Inquiry Pt receiving controlled substance: No Vital Signs: 01/30/25 22:50 01/30/25 23:00 Temperature 97.9 F Temperature Source Oral Pulse Rate 77 Pulse Rate [Right Radial] 86 Respiratory Rate 16 Blood Pressure 137/107 H Blood Pressure [Right Arm] 175/112 H Blood Pressure Mean [Right Arm] 133 Blood Pressure Source [Right Arm] Automatic Cuff Blood Pressure Position [Right Arm] Supine 02 Sat by Pulse Oximetry 99 98 Oxygen Delivery Method Room Air Lab Data Lab results reviewed: Yes I reviewed the patient's lab results. Lab Results 01/30/25 22:47: Urine Color Yellow, Urine Appearance Slightly cloudy, Urine pH 6.0, Ur Specific Nickerson 1.020, Urine Protein 2+ A, Urine Glucose (UA) Negative, Urine Ketones Negative, Urine Blood 2+ A, Urine Nitrate Negative, Urine Bilirubin Negative, Urine Urobilinogen 0.2, Ur Leukocyte Esterase 1+ A, Urine RBC 10-20, Urine WBC 5-10, Ur Squamous Epith Cells None, Urine Bacteria Trace Orders (Tests/Meds): ED MEDICATIONS Generic Name Dose Route Start Last Admin Trade Name Freq PRN Reason Stop Dose Admin Trimethoprim/Sulfamethoxazole 1 each 01/30/25 23:19 Sulfa/Trimethoprim 1 Tablet PO 01/30/25 23:20 ONCE ONE ORDERS Category Date Time Status UA [Urinalysis and Microscopic] Stat Lab 01/30/25 22:47 Completed Urine Culture Stat Micro 01/30/25 22:47 Received Medical Decision Narrative: Benign appearing 70-year-old gentleman who presents today with urinary frequency. He has no signs or symptoms of any more complicated pathology today such as pyelonephritis etc. Urinalysis is consistent with urinary tract infection patient has had numerous positive UAs in the past but really has not had significant abnormalities with regards to culture. First dose of Bactrim was given in the ED and prescription of Bactrim was sent for a diagnosis of complicated urinary tract infection. He has close follow-up with urology and will follow-up with them and return with any significant worsening of his symptoms. No further emergency intervention or management is necessary the moment. Critical Care Critical Care Time Critical Care Time: No
[2025-01-30 23:03] LABS: Bilirubin,Urine Negative (Negative); Blood, Urine 2+ (Negative); Color,Urine YELLOW (Yellow); Glucose,Urine (UA) Negative (Negative); Ketones,Urine Negative (Negative); Leukocyte Esterase,Urine 1+ (Negative); Nitrate,Urine Negative (Negative); Protein,Urine 2+ (Negative); Urobilinogen,Urine 0.2 EU/dl (0.2)
[2025-01-30 23:06] LABS: Appearance,Urine Slightly Cloudy (Clear)
[2025-01-30 23:12] LABS: Bacteria,Urine Trace /lpf
[2025-01-30] MEDS: SULFA/TRIMETHOPRIM 1 TABLET 1 EACH PO (23:24)
[2025-01-30 23:26] VITALS: BP 164/94; PULSE 74; RESP 16; TEMP 36.6; O2SAT 98
== END 2025-01-30 23:28 | disposition home or self-care (01) ==
PROVIDERS: Emergency Provider Student in an Organized Health Care Education/Training Program; PCP Nurse Practitioner Family
DX: N39.0 Urinary tract infection, site not specified (principal); R35.0 Frequency of micturition
CPT/HCPCS: 81001; 87086; 99283

== ENCOUNTER 2025-02-12 14:21 | Outpatient (CLI) | payer MEDICARE, OTHER, SELFPAY ==
--- OUTSIDE RECORDS SUMMARY | 2025-02-15 14:23 | XMS_ITS | Data Portability ---
Author Organization OMERO JAIMES [facility] [place] Address [address] [place] [address] Care Team Providers Care Acquisitions Editor Name Role Phone ESTEVAN KELLY Referring Provider Unavailable Assessment No assessment recorded. Plan of Treatment Reminders Order Date Submit Date Provider Last Modified By Organization Details Last Modified Time Details Appointments None recorded . Lab PSA, total + free, serum or plasma 024 01/08/20 24 [email or web address] [facility] [address] [place] [address] [address], [place], [address], 4 07:47:32 PSA, serum or plasma 023 06/14/20 23 [email or web address] Not available 3 07:08:59 Referral None recorded [...] Organization Details Recorded Time Chronic hepatitis C 464683697 Active 2022 OMERO Tyler [facility] & [place] 3 13:11:51 Hypertensive disorder 98662940 Active 2022 OMERO Tyler [facility] & [place] 3 13:13:13 Problem Notes None recorded. Procedures Surgical History Date Name Laterality Status Provider Name and Address Organization Details Recorded Time replacement of bilateral hip joints completed Elvis JAIMES [facility] & [place] 06/14/2023 13:12:54 Colonoscopy completed Elvis [facility] [place] 06/14/2023 13:13:58 Imaging Results None recorded. Procedure Notes None recorded. Medical Equipment None Reported. Allergies Allergen ID Allergen Name Allergen Category Reaction Reaction Severity Criticality Documentation Date Start Date Code Code System Note Provider Name and Address Organization Details Recorded Time 59616 prochlorp erazine medicatio n Not available Not available Not available 06/14/2023 8704 RxNorm Elvis tello, OMERO Adams [facility] & [place] 13:11:26 Medications Name Sig Start Date Stop [...] Updated DateTime 01/08/2024 175.26 cm 25.1 kg/m2 43793.7 g 97.5 [degF] Analisa JAMIL [facility]AG[facility] [place] 01/08/2024 13:50:45 Date Recorded Body height Body mass index (BMI) Body weight Body temperature Provider Name and Address Organization Details Last Updated DateTime 04/08/2024 175.26 cm 25.1 kg/m2 32427.7 g 98 [degF] Analisa Adams [facility] & [place] 04/08/2024 13:41:34 Social History None recorded. Functional Status Question Answer Note LastModified by Organizat ion Details LastModified Time What is your level of alcohol consumption? Occasional [email or web address] Information not available 06/14/2023 Mental Status None recorded. Family History Nothing Reported. Medical History No medical history recorded. Past Encounters Encounter ID Performer Location Encounter Start Date Encounter Closed Date Diagnosis/Indication Diagnosis SNOMED-CT Code Diagnosis ICD10 Code Diagnosis Note [id number] Nik Steiner Jr, MD [facility] [place] [address] 5 06/14/2023 13:38:48 06/14/2023 13:56:42 Prostate specific antigen above reference range 967421581 R97.20 68-year-ol d white male with PSA of 6.7. Prostate examinatio n is benign. We discussed various causes of elevated PSA and treatment options including close monitoring versus prostate biopsy. Patient is comfortabl e with watchful waiting and will repeat a PSA in 6 months. [id number] Nik Steiner Jr, MD [place] [address] 5 01/08/2024 13:43:13 01/08/2024 14:43:22 Prostate specific antigen above reference range 732762772 R97.20 68-year-ol d white male with history [...] free and total PSA in 3 months. [id number] [facility] Jr, [facility] [place] [id number] 04/08/2024 13:33:18 04/08/2024 14:38:56 Prostate specific antigen above reference range 514150663 R97.20 68-year-ol d white male with history [...] Recorded Advance Directives Directive None Recorded Payers Insurance Date Sequence Insurance Name Policy Number Policy Couch Covered Member ID Couch Member ID Guarantor Name 10/03/2024 1 [place]ARE[place] Parth Pratt [id number] Parth Pratt 10/03/2024 2 [employer] [place] (MEDICARE SUPPLEMENT) Parth Pratt [id number] Parth Pratt Notes Date Note Type Note Provider Name and Address Organization Details Recorded Time 06/14/2023 text/html Patient is a 68-year-old white male referred for PSA elevation. His PSA was 6.7 on May 02. He is not aware of any previous PSAs. He denies a family history of prostate cancer. He denies any lower urinary tract symptoms. Nik Steiner Jr, MD [address], [address], [place], [address], [facility] & [place] 06/28/2023 13:12:10 01/08/2024 text/html Patient is a [...] of stress as his has been at [place] for several weeks. Nik Steiner Jr, MD [address], [address], [place], [address], [facility] & [place] 01/08/2024 14:35:01 04/08/2024 text/html Patient is a [...] for prostate biopsy. Nik Steiner Jr, MD [address] [place] [address], [address], [place], [address], [facility] 04/08/2024 15:18:21
== END 2025-02-12 23:59 ==
LOC: LAB.DROPOF 02-15 14:22
PROVIDERS: PCP Nurse Practitioner Family; Visit Provider Student in an Organized Health Care Education/Training Program
DX: N39.0 Urinary tract infection, site not specified (principal)
CPT/HCPCS: 87086

== ENCOUNTER 2025-03-17 11:54 | Emergency (ER) | payer MEDICARE, OTHER, SELFPAY ==
--- OUTSIDE RECORDS SUMMARY | 2025-02-17 05:24 | XMS_ITS | Encounter Summary ---
Author Organization Healthcare Address [address] [id number] Care Team Providers Care Management Trainee Marketing Name Role Phone Thiago Gregory APRN Primary Care Provider [phone] Doug Bill RN Unavailable Unavailable Reason for Visit * Auth/Cert (Routine) Specialty Diagnoses / Procedures Referred By Contac t Referred To Contact Diagnoses Hydronephrosis, right hydronephrosis of right kidney Procedures VA LAP,PYELOPLASTY PYELOPLASTY, ROBOT-ASSISTED, USING DA COLE XI Talib Serna MD [address] [address] Phone: tel: fax: [facility] [address] [place] [address] Phone: tel: Referral ID Status Reason Start Date Expiration Date Visits Re quested Visits Authorized [id number] 1 1 Encounter Details Date Type Department Care Team (Latest Contact Info) Description 02/17/2025 5:24 AM EDT - 02/20/2025 3:18 PM EDT Hospital Encounter [facility] Inpatient [address] [place] [address] Talib Serna MD [address] [address] Hydronephrosis, right Discharge Disposition: Home or Self Care Social History Tobacco Use Types Packs/Day Years Used Date Smoking Tobacco: Former Cigarettes 4 18 S tarted: 1967 Passive Smoke Exposure: Past Smokeless Tobacco: Never Alcohol Use Standard Drinks/Week Comments Yes 40 (1 standard drink = 0.6 oz pu re alcohol) Humiliation, Afraid, Rape, and Kick questionnair e Answer Date Recorded Within the last year, have y ou been afraid of your partner or ex-partner? No 12/07/2024 Emotionally Abused Not on file 12/07/2024 Within the last year, have y ou been kicked, hit, slapped, or otherwise physically hurt by your partner or ex-partner? No 12/07/2024 Within the last year, have y ou been raped or forced to have any kind of sexual activity by your partner or ex-partner? No 12/07/2024 PHQ-2 Answer Date Recorded Patient Health Questionnaire-2 Score 0 12/31/2024 Hunger Vital Sign Answer Date Recorded Within the past 12 months, y ou worried that your food would run out before you got the money to buy more. Never true 12/08/19 25 Within the past 12 months, t he food you bought just didn't last and you didn't have money to get more. Never true 12/07/2024 PRAPARE - Transportation Answer Date Re corded In the past 12 months, has l ack of transportation kept you from medical appointments or from getting medications? No 11/28 In the past 12 months, has l ack of transportation kept you from meetings, work, or from getting things needed for daily living? No 12/07/2024 Housing Stability Vital Sign Answer Christian e Recorded In the last 12 months, was t here a time when you were not able to pay the mortgage or rent on time? No 12/07/2024 In the past 12 months, how m any times have you moved where you were living? 0 12/07/2024 At any time in the past 12 m [facility], were you homeless or living in a nursing home (including now)? No 12/07/2024 CAGE ASSESSMENT Answer Date Recorded Cage unable to access Not on file 01/01/2025 Maximum number of drinks you had on a given occasion in the last month? 5 or more drinks 01/01/2025 How many alcoholic Beverages do you typically drink in a week? 0 - 7 per week 01/01/2025 Have you ever felt you shoul d CUT down on your drinking? 0 01/01/2025 Have you been ANNOYED by peo ple criticizing your drinking? 0 01/01/2025 Have you felt GUILTY about your drinking? 0 01/01/2025 Have you had a drink first t nigel in the morning (EYE-ENROLLMENT MANAGEMENT MANAGER) to steady your nerves or to get rid of a hangover? 0 01/01/2025 CAGE Questionnaire Score 0 025 Utilities Answer Date Recorded In the past 12 months has e [employer], gas, oil, or water [employer] threatened to shut off services in your home? No 12/07/2024 Sex and Gender Information Value Date Recorded Sex Assigned at Male 10/03/2024 11:15 AM EST Legal Sex Male 6:18 PM EDT Gender Identity Not on file Sexual Orientation Not on file documented as of this encounter Last Filed Vital Signs Vital Sign Reading Time Taken Comments Blood Pressure 156/84 02/20/2025 12:06 PM EDT Pulse 78 02/20/2025 12:06 PM EDT Temperature 36.8 C (98.2 F) 02/20/2025 12:06 PM EDT Respiratory Rate 16 02/20/2025 4:02 AM EDT Oxygen Saturation 96% 02/20/2025 12:06 PM EDT Inhaled Oxygen Concentration - - Weight 68 kg (150 lb) 02/05/2025 2:15 PM EDT Height 180.3 cm (5' 11 ) 02/05/2025 2:15 PM EDT Body Mass Index 20.92 02/05/2025 2:15 PM EDT documented in this encounter Functional Status * Calculated C-SSRS Risk Score (Lifetime/Recent) Answer Date of Assessment Author No Risk Indicated 02/19/2025 8:00 PM EDT Chani Schwab, FARTUN * Question Answer Date of Assessment Author 1. Wish to be (Past 1 Month) No 025 8:00 PM EDT Chani Schwab, RN 2. Non-Specific Active Suici sena Thoughts (Past 1 Month) No 02/19/2025 8:00 PM EDT Bianka Schwab RN 6. Suicidal Behavior (Lifetime) No 8:00 PM EDChani Pollard RN documented as of this encounter Discharge Instructions * Discharge Instructions* Mattie Tejeda MD - 02/20/2025 10:45 AM EDT Medications: - You should take 500mg Tylenol every 6 hours for mild - moderate pain. You may take up to 1000mg every 6 hours but do not take more than 4000mg in a day. - You should take 500mg methocarbamol 4 times per day for muscle spasms. - You have been prescribed pain medications to be taken as needed for severe pain. - You should take the stool softener prescribed as long as you are taking narcotics. - You may resume your previous medications unless otherwise instructed. Nutrition: - You may resume your normal diet as tolerated, focusing on liquids to keep yourself hydrated. Activity: - Walking and climbing stairs is ok and encouraged. You should refrain from any strenuous activity/exercise until your follow up appointment. - No lifting anything >10lbs (approximately a gallon of milk) for the next 6 weeks. - You may not drive for 24 hours after surgery, or while taking narcotics Incision: - A special skin glue is used to close and cover your incision. Do not pick it off, it will fall ofon its own after approximately 2 weeks. - You should try to keep your incisions as clean and dry as possible - You may shower. Let the soapy water run over your incisions. Do not scrub at your incisions. After you shower, pat your incisions dry with a clean towel. - Do NOT soak your incisions, or take a tub bath for 2 weeks. Potential Issues: - It is normal to have some blood in the urine after the procedure and while you have a stent in place. Drink plenty of water and it should clear up. Contact the office if you are passing large clotsor unable to urinate. - It is normal to have some pain and soreness, especially around the incisions. - A small amount of clear drainage from the incision may be expected, call the office if the drainage becomes bloody, purulent (pus), or foul-smelling - Call the office if you start to have increased redness, drainage, swelling, or increased pain around your incision - Call the office if you have a fever greater than 101 F - Call the office if you have severe abdominal discomfort, nausea and vomiting, or feeling unwell Follow Up: - You will be contacted by the clinic for a follow up appointment for in office stent removal. Questions or Concerns and Appointments (physicians work at both clinics so confirm your location ahead of your appointment) [facility] Urology Department Clinic at [facility] [address], [address] Floor, [address], [address] [place] [address] Clinic After Hours [facility] Office Building Urology Clinic [address] [place] [address] Clinic After Hours [facility] Multidisciplinary Urology Clinic [address] [place] [address] Clinic documented in this encounter Medications at Time of Discharge colchicine (Colcrys) 0.6 MG tablet Take 1 tablet by mouth 2 times a day. methocarbamol (Robaxin) 500 MG tablet Take 1 tablet by mouth 4 times a day for 5 days. 20 tablet 02/20/2025 naloxone (Narcan) 4 mg/0.1 mL nasal spray 1. Give 1 spray in nostril for no/slow breathing or cannot wake after opioid use 2. Call 911 3. Repeat in other nostril if symptoms continue 1 each 02/20/2025 oxyCODONE (Roxicodone) 5 MG immediate release tablet Take 1 tablet by mouth every 6 hours as needed for severe pain for up to 5 doses. 5 tablet 02/20/2025 phenazopyridine (Pyridium) 200 MG tablet Take 1 tablet by mouth 3 times a day as needed for pain, discomfort or irritation. 20 tablet 02/20/2025 5 senna-docusate sodium (Senokot-S) 8.6-50 MG tablet Take 1 tablet by mouth daily. 30 tablet 02/20/2025 5 tamsulosin (Flomax) 0.4 MG 24 hr capsule Take 1 capsule by mouth 1 time each day with dinner. 60 capsule 02/20/2025 5 acetaminophen (Tylenol) 500 MG tablet Take 2 tablets by mouth every 6 hours as needed for pain, headaches or fever for up to 5 days. 40 tablet 02/20/2025 5 lidocaine (Lidoderm) 5 % patch Apply 1 patch topically daily over 12 hours for 5 days. Remove & discard patch within 12 hours or as directed by . 5 patch 02/20/2025 5 documented as of this encounter Miscellaneous Notes * Jaycob De Leon - Chadwick Alvarez RN - 02/20/2025 1:44 PM EDT Images from the original note were not included. [id number] Pyeloplasty The ureters are the two tubes that carry urine from the kidneys to the bladder. If urine can?t flowfreely through a ureter, it builds up in the kidney. This is called ureteropelvic junction (UPJ) obstruction. This may cause symptoms such as bloody urine, pain, fever, and vomiting. It can also cause serious health problems such as infection or kidney damage. People with UPJ obstruction are often born with it, but symptoms may not show up until later in life. Urine flow through the ureter can beblocked by a narrowing (stricture) of the ureter lyman. A blood vessel that presses on the ureter can also cause it. Pyeloplasty is surgery to unblock the ureter and let urine flow again. Getting ready for surgery Prepare for the surgery as you have been told. In addition: ?? Tell your healthcare provider about all medicines you take. This includes prescription and snkx-thl-lpyezqk medicines, vitamins, herbs, and supplements. You may need to stop taking some or all of them before surgery, as instructed by your provider. ?? Don't eat or drink during the 8 hours before your surgery. This includes water, gum, and mints. ?? You may be given a special liquid or medicine to take the day before the surgery. This is to make sure your colon is empty for the surgery. Two types of surgery The surgery may be done through several small incisions (laparoscopy). Or it may be done through one larger incision (open surgery). Laparoscopy can't be used in all cases. In some cases, your surgeon may start the procedure with laparoscopy, but for safety reasons must change to open surgery. You and your surgeon will talk about your options. ?? Laparoscopy. The surgeon makes several small incisions in the belly (abdomen). The scope is put through one of the small incisions. The scope sends pictures from inside the abdomen to a video screen. Surgical tools are put through the other incisions. The surgeon may use a method called robotic l aparoscopy. The robotic system gives a 3-D view inside the body. It also assists the surgeon?s handmovements. ?? Open surgery. One larger incision is made in the side over the ribs. The surgeon sees and works through this incision. Part of a rib may need to be removed so the surgeon can reach the kidney. The day of surgery The surgery takes about 3 to 5 hours. Afterward, you will stay in the hospital for 1 to 3 nights. Before the surgery begins ?? An IV (intravenous) line is put into a vein in your arm or hand. This line delivers fluids and medicine (such as antibiotics). ?? You may get medicine to prevent blood clots. ?? To keep you free of pain during the surgery, you?re given general anesthesia. This medicine putsyou into a deep sleep-like state through the surgery. A tube may be put into your throat to help you breathe. ?? A thin tube (catheter) is placed into your bladder through the urethra. This drains urine duringthe surgery and for a time afterward. During the surgery ?? If a part of the ureter is narrowed, that part is cut out. The lower cut end is then sewn to thekidney. Or the ureter and kidney are both cut. Part of the kidney is then used to make the ureter wider. If a blood vessel is pressing on the ureter, it is moved away. ?? A long, flexible tube (stent) is put into the ureter. It reaches from the kidney into the bladder. It's kept in place for 4 to 6 weeks after surgery to help hold the ureter open while it heals. ?? When the surgery is done, all tools are removed. The incisions are closed with stitches, cheryl, surgical glue, or strips of surgical tape. One or more tubes may be placed near the incisions. These drain fluid from the incision for a short time after surgery. Recovering in the hospital After the surgery, you will be taken to the post anesthesia care unit (PACU). You'll be closely monitored as you wake up from the anesthesia. You may feel sleepy and nauseated. If a breathing tube was used, your throat may be sore at first. When you are awake and stable, you will be taken to your hospital room. While in the hospital: ?? You will be given medicine to manage pain. Let your healthcare providers know if your pain is not controlled. ?? You?ll first receive IV fluids. In a day or so, you will start on a liquid diet. You will then slowly return to a normal diet. ?? As soon as you?re able, you will get up and walk. ?? You?ll be taught coughing and breathing methods to help keep your lungs clear and prevent pneumonia. ?? The catheter in your urethra and any drains will likely be taken out before you leave the hospital. If not, you will be shown how to care for them at home. Recovering at home After your hospital stay, you will be released to an adult family member or friend. Have someone stay with you for the next few days to help care for you. Recovery time varies for each person. Your healthcare provider will tell you when you can return to your normal routine. Until then, follow the instructions you have been given. Make sure to: ?? Take all medicines as directed. ?? Follow your healthcare provider?s guidelines for showering. Don't swim, bathe, use a hot tub, ordo other activities that will cover the incision with water until your provider says it?s OK. ?? Don't lift anything heavy or do strenuous activities. ?? Don't drive until you are no longer taking prescription pain medicine and your provider says it?s OK. ?? Don't strain during a bowel movement. If needed, take stool softeners as directed by your healthcare provider. The stent in your ureter will cause the urge to pass urine more often. You may also have some burning and blood in your urine. This is normal and will go away once the stent is removed during a follow-up visit. When to call your healthcare provider Call your healthcare provider right away if you have any of the following: ?? Fever of 100.4?? F ( 38?? C) or higher, or as directed by your provider ?? Symptoms of infection at an incision site, such as increased redness or swelling, warmth, worsening pain, or foul-smelling drainage ?? Bleeding or a large amount of drainage from an incision ?? Blood clots in your urine ?? Leg pain or swelling ?? Inability to urinate ?? Vomiting that doesn?t go away Call 911 Call 911 right away if you have: ?? Chest pain ?? Trouble breathing Follow-up care You will have follow-up visits with your healthcare provider. If sutures or cheryl need to be removed, this is done 1 to 2 weeks after surgery. The stent in the ureter will be removed in 4 to 6 weeks. About 3 months after surgery, you may have an imaging test. This checks that the ureter is open and the kidney is working normally. Risks and possible complications All procedures have some risk. Possible risks of pyeloplasty include: ?? Infection ?? Bleeding (you may need a blood transfusion) ?? Urine leakage at the surgical site ?? Scarring of the ureter ?? Damage to nearby organs ?? Need for further surgery ?? Kidney damage ?? Risks of anesthesia (the anesthesiologist or nurse hematologist will discuss these with you) Last Reviewed Date: 2022 00:00:00 ?? [id number] [employer]. All rights reserved. This information is not intended as a substitute for professional medical care. Always follow your healthcare professional's instructions. * Hospital Course - Mattie Tejeda MD - 02/20/2025 10:45 AM EDT Parth Pratt is a 70 y.o. 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 The procedure was tolerated well with no intraoperative complications. Details of the operation are available in the op note. The remainder of the post-operative course was uncomplicated. On the day of discharge, the patient was ambulating frequently and independently with pain well controlled on po pain meds, tolerating a regular diet, voiding adequately after his catheter was removed, and passing flatus and stool. Patient was discharged to home in stable condition. The patient will be called with a follow up appointment for in office stent removal. * Discharge Summary - Mattie Tejeda MD - 02/20/2025 10:45 AM EDT Hospitalization Admit Date/Time: 02/17/2025 5:24 AM Admitting Attending: Talib Serna Discharge Date: 02/20/25 Discharge Attending Physician: Talib Serna MD PCP name and Address: Thiago Gregory APRN [address] [place] [address] / [address] [address] Referring provider name and address: No referring provider defined for this encounter. Chief Concern, Brief History of Present Illness, and Hospital Course Parth Pratt is a 70 y.o. 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 The procedure was tolerated well with no intraoperative complications. Details of the operation are available in the op note. The remainder of the post-operative course was uncomplicated. On the day of discharge, the patient was ambulating frequently and independently with pain well controlled on po pain meds, tolerating a regular diet, voiding adequately after his catheter was removed, and passing flatus and stool. Patient was discharged to home in stable condition. The patient will be called with a follow up appointment for in office stent removal. Surgeries and Procedures PYELOPLASTY, ROBOT-ASSISTED, USING DA COLE XI (Right) Medication List .. acetaminophen 500 MG tablet Commonly known as: Tylenol Take 2 tablets by mouth every 6 hours as needed for pain, headaches or fever for up to 5 days. colchicine 0.6 MG tablet Commonly known as: Colcrys Take 1 tablet by mouth 2 times a day. lidocaine 5 % patch Commonly known as: Lidoderm Apply 1 patch topically daily over 12 hours for 5 days. Remove & discard patch within 12 hours or as directed by . methocarbamol 500 MG tablet Commonly known as: Robaxin Take 1 tablet by mouth 4 times a day for 5 days. phenazopyridine 200 MG tablet Commonly known as: Pyridium Take 1 tablet by mouth 3 times a day as needed for pain, discomfort or irritation. senna-docusate sodium 8.6-50 MG tablet Commonly known as: Senokot-S Take 1 tablet by mouth daily. tamsulosin 0.4 MG 24 hr capsule Commonly known as: Flomax Take 1 capsule by mouth 1 time each day with dinner. Where to Get Your Medications These medications were sent to [facility] - [place], [place] - [address] [facility] [address] acetaminophen 500 MG tablet lidocaine 5 % patch methocarbamol 500 MG tablet phenazopyridine 200 MG tablet senna-docusate sodium 8.6-50 MG tablet tamsulosin 0.4 MG 24 hr capsule Discharge Diagnosis Medical Problems Active and Resolved Hospital Problems Hospital * (Principal) Ureteropelvic junction (UPJ) obstruction, right UPJ (ureteropelvic junction) obstruction Post Discharge Instructions Medications: - You should take 500mg Tylenol every 6 hours for mild - moderate pain. You may take up to 1000mg every 6 hours but do not take more than 4000mg in a day. - You should take 500mg methocarbamol 4 times per day for muscle spasms. - You have been prescribed pain medications to be taken as needed for severe pain. - You should take the stool softener prescribed as long as you are taking narcotics. - You may resume your previous medications unless otherwise instructed. Nutrition: - You may resume your normal diet as tolerated, focusing on liquids to keep yourself hydrated. Activity: - Walking and climbing stairs is ok and encouraged. You should refrain from any strenuous activity/exercise until your follow up appointment. - No lifting anything >10lbs (approximately a gallon of milk) for the next 6 weeks. - You may not drive for 24 hours after surgery, or while taking narcotics Incision: - A special skin glue is used to close and cover your incision. Do not pick it off, it will fall ofon its own after approximately 2 weeks. - You should try to keep your incisions as clean and dry as possible - You may shower. Let the soapy water run over your incisions. Do not scrub at your incisions. After you shower, pat your incisions dry with a clean towel. - Do NOT soak your incisions, or take a tub bath for 2 weeks. Potential Issues: - It is normal to have some blood in the urine after the procedure and while you have a stent in place. Drink plenty of water and it should clear up. Contact the office if you are passing large clotsor unable to urinate. - It is normal to have some pain and soreness, especially around the incisions. - A small amount of clear drainage from the incision may be expected, call the office if the drainage becomes bloody, purulent (pus), or foul-smelling - Call the office if you start to have increased redness, drainage, swelling, or increased pain around your incision - Call the office if you have a fever greater than 101 F - Call the office if you have severe abdominal discomfort, nausea and vomiting, or feeling unwell Follow Up: - You will be contacted by the clinic for a follow up appointment for in office stent removal. Questions or Concerns and Appointments (physicians work at both clinics so confirm your location ahead of your appointment) [facility] Urology Department Clinic at [facility] [address], [facility], [address] [place] [address] Clinic After Hours [facility] Office Building Urology Clinic [address] [place] [address] Clinic After Hours [facility] Mult[facility]isciplinary Urology Clinic [address] [place] [address] Clinic Outpatient Follow-Up Future Appointments Date Time Provider Department Center 04/08/2025 9:10 AM Mayi Ballard [facility] [place] Test Results Pending At Discharge None Pertinent Physical Exam At Time of Discharge GEN: NAD HEENT: NCAT, EOMI RESP: Equal bilateral chest rise, normal work of breathing CV: Regular rate, appears well perfused ABD: Nondistended, ANAM drain with SSO removed by Dr. Fox : Sung catheter in place draining clear yellow urine, removed. EXT: No gross deformities MSK: Full ROM in BL UE NEURO: No focal deficits, alert and oriented PSYCH: Normal mood and affect Discharge Disposition/Condition Disposition: Home Condition: Stable (s/sx potential problems absent or manageable) I spent < 30 minutes of patient care and instruction time in preparation for this discharge. Mattie Tejeda MD [employer] [facility] PGY-4 Cosigned by Zenaida Friend MD at 02/20/2025 3:14 PM EDT Associated attestation - Zenaida Friend MD - 02/20/2025 3:14 PM EDT I saw and evaluated the patient with the resident/fellow. I discussed the case with the resident/fellow and agree with the findings and plan as documented. * Care Plan - Chadwick Alvarez RN - 02/20/2025 10:01 AM EDT Problem: Adult Inpatient Plan of Care Goal: Plan of Care Review Outcome: Ongoing, Progressing Flowsheets (Taken 02/20/2025 1001) Progress: improving Plan of Care Reviewed With: patient Goal: Patient-Specific Goal (Individualized) Outcome: Ongoing, Progressing Goal: Absence of Hospital-Acquired Illness or Injury Outcome: Ongoing, Progressing Goal: Optimal Comfort and Wellbeing Outcome: Ongoing, Progressing Goal: Readiness for Transition of Care Outcome: Ongoing, Progressing * Care Plan - Chani Schwab RN - 02/20/2025 2:02 AM EDT Problem: Adult Inpatient Plan of Care Goal: Patient-Specific Goal (Individualized) Outcome: Ongoing, Progressing Flowsheets (Taken 02/19/20251999) Patient/Family-Specific Goals (Include Timeframe): patient will have 1-2 BM during this shift. Individualized Care Needs: none stated Anxieties, Fears or Concerns: pain when going home Goal: Optimal Comfort and Wellbeing Outcome: Ongoing, Progressing * Care Plan - Jose Alcaraz RN - 02/19/2025 12:39 PM EDT Problem: Adult Inpatient Plan of Care Goal: Plan of Care Review Outcome: Ongoing, Progressing Flowsheets (Taken 02/19/2025 1111) Plan of Care Reviewed With: patient Goal: Patient-Specific Goal (Individualized) Outcome: Ongoing, Progressing Goal: Absence of Hospital-Acquired Illness or Injury Outcome: Ongoing, Progressing Goal: Optimal Comfort and Wellbeing Outcome: Ongoing, Progressing Goal: Readiness for Transition of Care Outcome: Ongoing, Progressing Problem: Infection Goal: Absence of Infection Signs and Symptoms 02/19/2025 1239 by Jose Alcaraz RN Outcome: Ongoing, Progressing 02/19/2025 1111 by Jose Alcaraz RN Outcome: Ongoing, Progressing * Care Plan - Jose Alcaraz RN - 02/19/2025 11:11 AM EDT Problem: Adult Inpatient Plan of Care Goal: Plan of Care Review Outcome: Ongoing, Progressing Flowsheets (Taken 02/19/2025 1111) Plan of Care Reviewed With: patient Goal: Patient-Specific Goal (Individualized) Outcome: Ongoing, Progressing Goal: Absence of Hospital-Acquired Illness or Injury Outcome: Ongoing, Progressing Goal: Optimal Comfort and Wellbeing Outcome: Ongoing, Progressing Goal: Readiness for Transition of Care Outcome: Ongoing, Progressing Problem: Infection Goal: Absence of Infection Signs and Symptoms Outcome: Ongoing, Progressing * Progress Notes - Taylor Stewart MD - 02/19/2025 8:01 AM EDT [facility] Urology Inpatient Progress Note Primary Attending: Talib Serna MD Procedure(s): Cystoscopy with right ureteral stent exchange Right diagnostic ureteroscopy Right robot assisted laparoscopic pyeloplasty SUBJECTIVE: - saw patient walking in the hallway this morning - he says he was hypertensive overnight, was wondering why we have not restarted his SUSIE I, discussed with him the reasoning, patient reassured PHYSICAL EXAM: Temp: [36.6 ??C (97.9 ??F)-37.4 ??C (99.4 ??F)] 37 ??C (98.6 ??F) Heart Rate: [70-83] 74 Resp: [14-16] 16 BP: (152-190)/(80-99) 153/91 SpO2: [54 %-96 %] 94 % I O Shift I O 24Hrs LDAs No intake/output data recorded. I/O last 3 completed shifts: In: 1327.5 (19.5 mL/kg) [P.O.:720; I.V.:607.5 (8.9 mL/kg)] Out: 2980 (43.8 mL/kg) [Urine:2850 (1.2 mL/kg/hr); Drains:130] Weight: 68 kg Closed/Suction Drain Superior;Medial Abdomen Bulb 15 Fr. (Active) Placement Date/Time: 02/17/25 1320 Inserted by: Dr. Serna Orientation: Superior;Medial Location: Abdomen Drain Tube Type: Bulb Size (Fr.): 15 Fr. Drain [place] Size (mL): 100 mL Urethral Catheter Non-latex 16 Fr. (Active) Placement Date/Time: 02/17/25 0900 Inserted by: Dr. Serna Hand Hygiene Completed: Yes Catheter Type: Non-latex Tube Size (Fr.): 16 Fr. Catheter Balloon Size: 10 mL Urine Returned: Yes GEN: NAD HEENT: NCAT, EOMI RESP: Equal bilateral chest rise, normal work of breathing CV: Regular rate, appears well perfused ABD: Nondistended, ANAM drain with SSO : Sung catheter in place draining clear yellow urine EXT: No gross deformities MSK: Full ROM in BL UE NEURO: No focal deficits, alert and oriented PSYCH: Normal mood and affect LABS: Results from last 7 days Lab Units 02/19/25 0438 WBC 10*3/uL 13.20* HEMOGLOBIN g/dL 13.7 HEMATOCRIT % 39.5* PLATELETS 10*3/uL 157 Results from last 7 days Lab Units 02/19/25 0438 SODIUM mmol/L 135* POTASSIUM mmol/L 3.7 CHLORIDE mmol/L 101 CO2 mmol/L 24 BUN mg/dL 8 CREATININE mg/dL 0.55* EGFR mL/min/1.73m*2 106.0 GLUCOSE mg/dL 105* CALCIUM mg/dL 9.0 Results from last 7 days Lab Units 02/17/25 0900 URINE CULTURE 1,000 - 10,000 CFU/mL Yeast* HOSPITAL PROBLEM LIST: Principal Problem: Ureteropelvic junction (UPJ) obstruction, right Active Problems: UPJ (ureteropelvic junction) obstruction ASSESSMENT: Parth Pratt is a 70 y.o. male with a PMH of right UPJ-O and right UVJ-O s/p right ureteral reimplant who is postop day 1 s/p right ureteral stent exchange in robotic assisted laparoscopic pyeloplasty. Patient is subjectively and objectively doing well in the postoperative period. Continue pain control, possible DC later today. PLAN: - regular diet - MMPC - PRN labetolol - continue to trend labs, Cr - possible DC later today Taylor Stewart MD General Surgery Preliminary PGY1 Pager: [phone] Department of Urology Cosigned by Talib Serna MD at 03/01/2025 9:11 AM EDT * Care Plan - Chani Schwab RN - 02/19/2025 5:40 AM EDT Problem: Adult Inpatient Plan of Care Goal: Plan of Care Review Outcome: Ongoing, Progressing Flowsheets (Taken 02/19/2025 7740) Progress: improving Plan of Care Reviewed With: patient Goal: Patient-Specific Goal (Individualized) Outcome: Ongoing, Progressing Flowsheets (Taken 02/18/2025 0800 by David David RN) Anxieties, Fears or Concerns: none stated Goal: Absence of Hospital-Acquired Illness or Injury Outcome: Ongoing, Progressing Goal: Optimal Comfort and Wellbeing Outcome: Ongoing, Progressing Goal: Readiness for Transition of Care Outcome: Ongoing, Progressing * Care Plan - David David RN - 02/18/2025 9:37 AM EDT Problem: Adult Inpatient Plan of Care Goal: Patient-Specific Goal (Individualized) Outcome: Ongoing, Progressing Flowsheets (Taken 02/18/2025 0800) Patient/Family-Specific Goals (Include Timeframe): patient will verbalize need for pain medication Individualized Care Needs: pain Anxieties, Fears or Concerns: none stated Goal: Optimal Comfort and Wellbeing Outcome: Ongoing, Progressing Goal: Readiness for Transition of Care Outcome: Ongoing, Progressing * Progress Notes - Taylor Stewart MD - 02/18/2025 7:46 AM EDT [facility] Urology Inpatient Progress Note Primary Attending: Talib Serna MD Procedure(s): Cystoscopy with right ureteral stent exchange Right diagnostic ureteroscopy Right robot assisted laparoscopic pyeloplasty SUBJECTIVE: - patient resting comfortably in bedside chair, states that he would like to eat more today, his nausea has since resolved PHYSICAL EXAM: Temp: [36.6 ??C (97.9 ??F)-36.8 ??C (98.3 ??F)] 36.7 ??C (98 ??F) Heart Rate: [64-85] 71 Resp: [11-18] 16 BP: (125-170)/(73-112) 143/77 SpO2: [95 %-99 %] 98 % I O Shift I O 24Hrs LDAs No intake/output data recorded. I/O last 3 completed shifts: In: 2005.3 (29.5 mL/kg) [P.O.:50; I.V.:1901.3 (27.9 mL/kg); IV Piggyback:54] Out: 1435 (21.1 mL/kg) [Urine:1305 (0.5 mL/kg/hr); Drains:130] Weight: 68 kg Closed/Suction Drain Superior;Medial Abdomen Bulb 15 Fr. (Active) Placement Date/Time: 02/17/25 1320 Inserted by: Dr. Serna Orientation: Superior;Medial Location: Abdomen Drain Tube Type: Bulb Size (Fr.): 15 Fr. Drain [place] Size (mL): 100 mL Urethral Catheter Non-latex 16 Fr. (Active) Placement Date/Time: 02/17/25 0900 Inserted by: Dr. Serna Hand Hygiene Completed: Yes Catheter Type: Non-latex Tube Size (Fr.): 16 Fr. Catheter Balloon Size: 10 mL Urine Returned: Yes GEN: NAD HEENT: NCAT, EOMI RESP: Equal bilateral chest rise, normal work of breathing CV: Regular rate, appears well perfused ABD: Nondistended, ANAM drain with SSO : Sung catheter in place draining clear yellow urine EXT: No gross deformities MSK: Full ROM in BL UE NEURO: No focal deficits, alert and oriented PSYCH: Normal mood and affect LABS: Results from last 7 days Lab Units 02/18/25 0418 WBC 10*3/uL 14.14* HEMOGLOBIN g/dL 13.2* HEMATOCRIT % 39.7* PLATELETS 10*3/uL 191 Results from last 7 days Lab Units 02/18/25 0418 SODIUM mmol/L 138 POTASSIUM mmol/L 4.2 CHLORIDE mmol/L 104 CO2 mmol/L 22 BUN mg/dL 13 CREATININE mg/dL 0.60* EGFR mL/min/1.73m*2 103.2 GLUCOSE mg/dL 105* CALCIUM mg/dL 8.8* Results from last 7 days Lab Units 02/17/25 0900 URINE CULTURE 1,000 - 10,000 CFU/mL Yeast* HOSPITAL PROBLEM LIST: Principal Problem: Ureteropelvic junction (UPJ) obstruction, right Active Problems: UPJ (ureteropelvic junction) obstruction ASSESSMENT: Parth Pratt is a 70 y.o. male with a PMH of right UPJ-O and right UVJ-O s/p right ureteral reimplant who is postop day 1 s/p right ureteral stent exchange in robotic assisted laparoscopic pyeloplasty. Patient is subjectively and objectively doing well in the postoperative period. Wewill advance his diet and decrease maintenance fluids. PLAN: - advance diet to regular, added boost shakes - decrease maintenance IV fluids to 50 - continue to trend labs, Brady Stewart MD General Surgery Preliminary PGY1 Pager: [phone] Department of Urology Cosigned by Talib Serna MD at 02/18/2025 8:11 AM EDT Associated attestation - Talib Serna MD - 02/18/2025 8:11 AM EDT I saw and evaluated the patient. I discussed the case with the resident/fellow and agree with the findings and plan as documented. * Care Plan - Chani Schwab RN - 02/18/2025 4:44 AM EDT Problem: Adult Inpatient Plan of Care Goal: Plan of Care Review Outcome: Ongoing, Progressing Flowsheets (Taken 02/18/2025 0444) Plan of Care Reviewed With: patient Goal: Patient-Specific Goal (Individualized) Outcome: Ongoing, Progressing Flowsheets (Taken 02/17/20251999) Patient/Family-Specific Goals (Include Timeframe): patient will state adequate pain control of lessthan 4 during this shift. Individualized Care Needs: pain management Anxieties, Fears or Concerns: pain Goal: Absence of Hospital-Acquired Illness or Injury Outcome: Ongoing, Progressing * Anesthesia PACU Signout - Ana Wilcox DO - 02/17/2025 2:51 PM EDT Patient: Parth Pratt Anesthesia Type: general Vitals Value Taken Time BP 156/97 02/17/25 14:45 Temp 36.7 ??C (98.1 ??F) 02/17/25 14:45 Pulse 84 02/17/25 14:50 Resp 15 02/17/25 14:50 SpO2 95 % 02/17/25 14:50 Vitals shown include unfiled device data. Anesthesia PACU Signout Patient location during evaluation: PACU Patient participation: complete - patient participated Level of consciousness: baseline and awake Pain management: adequate (pain score 0-3) Airway patency: natural airway Hydration status: stable PONV: none Cardiovascular status: hemodynamically stable and blood pressure returned to baseline Respiratory status: spontaneous ventilation, unassisted, nonlabored ventilation and nasal cannula (2L) Discharge Disposition: admit to inpatient unit Cosigned by Tony Spencer MD at 02/17/2025 3:55 PM EDT Associated attestation - Tony Spencer MD - 02/17/2025 3:55 PM EDT Agree with above assessment and evaluation from resident/QUILLER RUNNER. * Op Note - Talib Serna MD - 02/17/2025 8:59 AM EDT Operative Note Date: 02/17/25 Location: [facility] Name: Parth Pratt, : 1955, Diagnoses: Pre-op Diagnosis Hydronephrosis, right Post-op Diagnosis Hydronephrosis, right Procedure(s): Cystoscopy with right ureteral stent exchange Right diagnostic ureteroscopy Right robot assisted laparoscopic pyeloplasty Attending Surgeon(s): * Talib Serna - Primary Maintainer Operator(s): * Corrie Estevez MD - Resident - Assisting Anesthesia: General ASA: III Blood Administration: Blood Product Administration History None Drains: Closed/Suction Drain Superior;Medial Abdomen Bulb 15 Fr. (Active) Site Description Clean;Dry 02/17/25 1515 Dressing Status Old drainage;Intact;Clean 02/17/25 1655 Drainage Appearance Bright red 02/17/25 1655 Status Suction-low intermittent 02/17/25 1655 Output (mL) 90 mL 02/17/251654 Urethral Catheter Non-latex 16 Fr. (Active) Site Assessment Skin intact;Clean 02/17/251355 CAUTI: Collection Container Standard drainage bag;Collection container below bladder and tubing free of kinks;System closed 02/17/251355 CAUTI: Securement Method Securing device (Describe) 02/17/251355 CAUTI: Specimen Collection Port Covered with Alcohol Cap Yes 02/17/251355 CAUTI: Urinary Catheter Necessity Yes, meets criteria 02/17/251355 Output (mL) 200 mL 02/17/251654 Implants Type Name Action Serial No. Stent STENT URETERAL DOUBLE PIGTAIL POS 6FR 22CM - [id number] - [id number] Implanted [id number] Specimen: Specimens ID Source Frozen? 1 Other (specify site) No Description: right proximal ureter A Bladder Description: bladder urine for culture Findings: Widely patent elijah ureteral orifice. Significant inflammation around the proximal right ureter and ureteropelvic junction. Healthy appearing urothelium above and below the excised ureteropelvic junction. Tension-free anastomosis. Good position of the stent confirmed the conclusion of the case. Indications: Parth Pratt is an 70 y.o. male who is having surgery for Hydronephrosis, right. Hepreviously underwent right ureteral reimplantation for right ureterovesical junction obstruction. His stent remains in place. Narrative: After informed consent was obtained, the patient was taken to the operating room and placed in a supine position on the operating table. IV antibiotics were administered and general anesthesia was induced. He was moved to a modified flank position with the right side elevated. He was carefully padded and secured to the table. His abdomen and external genitalia were prepped and draped in the usualsterile fashion. Time-out performed to verify the correct patient, side, and procedure. Flexible cystoscope was introduced at the urethral meatus and advanced into the bladder without difficulty. Urine sample was obtained for culture. A sensor wire was passed alongside his indwelling stent into a widely patent reimplanted ureter. The stent was then removed and a 5 [place] ureteral catheter was placed over the wire. Sung catheter was placed into the bladder alongside it. Veress needle was used to access the peritoneum in the right upper quadrant. After appropriate water test, the abdomen was insufflated. Four robot trocars were placed roughly along the midclavicular line. 5 mm medical lab assistant portwas placed below the umbilicus. There was some insufflation the retroperitoneum noted. Monopolar scissors were used to reflect the colon medially after the robot was docked. We identified the ureter and mobilized it up toward the kidney. Gonadal vessels were swept medially. There was significant inflammation around the proximal ureter and ureteropelvic junction. The Sung catheter and 5 [place] ureteral catheter were removed and flexible ureteral scope was advanced into the bladder and then intothe right ureter. We identified the segment of ureter that appeared unhealthy ureteroscopically andnoted the location. The ureter was then transversely divided at the appropriate level and spatulated laterally. We then mobilized the renal pelvis and opened it medially to guide our excision. With some difficulty, we were able to excise the ureteropelvic junction and surrounding inflammatory tissue. In order to have our anastomosis at the most dependent portion, we closed the lateral aspect of the open renal pelvis. We then began interrupted anastomosis with 4-0 Vicryl. We did some additional mobilization of the kidney, renal pelvis, and ureter to allow the anastomosis to be completed without tension. We placed a wire up through the ureteral scope and the scope was withdrawn. A 6 [place]i by22 cm double-J ureteral stent was then passed over the wire and positioned within the right renal pe lvis. Good distal curl was confirmed with the cystoscope. The Sung catheter was replaced. We completed the interrupted anastomosis with good tissue approximation. Vistaseal was applied. A 15 [place] drain was placed through the lowest trocar and secured. It was placed to a ANAM bulb. The robot was undocked and the skin incisions were closed with subcuticular 4-0 Monocryl and Dermabond. The patient was recovered from anesthesia in the room and taken to PACU in stable condition. There were NO signs of surgical site infection (SSI) present at the time of surgery (PATOS). Complications: None; patient tolerated the procedure well. Submitted by: Talib Serna MD - 02/17/2025 * H&P - Corrie Estevez MD - 02/17/2025 6:38 AM EDT Images from the original note were not included. Chief Concern & History Of Present Illness Parth Pratt is a 70 y.o. male presenting with a history of right UPJ-O and UVJ-O s/p right robotic ureteral reimplant now presenting for right pyeloplasty. No acute concerns. 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 Surgical History He has a past surgical history that includes Prostate biopsy; Colonoscopy; Upper gastrointestinal endoscopy; Hip Arthroplasty (Bilateral); Hip surgery (Right); Liver biopsy; Shoulder surgery (Left); Kidney stone surgery; Tonsillectomy; Ureteroscopy (11/30/2024); Nephrostomy (12/04/2024); and Cystoscopy (12/15/2024). Family History Family History[1] Social History He reports that he has quit smoking. His smoking use included cigarettes. He started smoking about 58 years ago. He has a 72 pack-year smoking history. He has been exposed to tobacco smoke. He has never used smokeless tobacco. He reports current alcohol use of about 40.0 standard drinks of alcohol per week. He reports current drug use. Drug: Marijuana. Occupational History Occupational history[2] Employer: No address on file. Allergies Chocolate and Prochlorperazine Medications Current Medications[3] Review of Systems Physical Exam Last Recorded Vitals Blood pressure (!) 142/80, pulse 62, temperature 36.7 ??C (98.1 ??F), temperature source Oral, resp. rate 16, height 1.803 m (5' 11 ), weight 68 kg (150 lb), SpO2 96%. Relevant Results Contains abnormal data Urine Culture Order: [id number] - Reflex for Order [id number] Collected 01/01/2025 08:03 Status: Final result Test Result Released: Yes (not seen) Specimen Information: Urine, Clean Catch 0 Result Notes Culture 10,000 - 100,000 CFU/mL Lucie albicans Abnormal This result was determined by MALDI tof Mass spectrometry. This assay was developed and its performance characteristics determined by [facility] as appropriate for clinical purposes. This assay has not been cleared or approved by the FDA, but is performed in a CLIA regulated laboratory that is qualified to perform high complexity testing. Edited result: Previously reported as Yeast on 01/02/2025 at 0633 EDT. Assessment/Plan Active Problems: There are no active Hospital Problems. Assessment and Plan: 70yM with history of right UPJ-O and right UVJ-O s/p right ureteral reimplant presenting for right pyeloplasty. - to OR for right pyeloplasty Medically Ready for Discharge:Anticipated Tomorrow [1] Family History Problem Relation Name Age of Onset Hyperthyroidism Sister Malig Hyperthermia Neg Hx [2] [3] Current Facility-Administered Medications Medication Dose Route Frequency Provider Last Rate Last Admin lactated Ringer's infusion 20 mL/hr Intravenous Continuous Talib Serna MD sodium chloride 0.9 % flush 1 mL 1 mL Intravenous q8h PRN Talib Serna MD Cosigned by Talib Serna MD at 02/17/2025 3:25 PM EDT * PAT Phone Note - Renetta Plaza RN - 02/05/2025 2:18 PM EDT HPI Parth Pratt is a 70 y.o. male who presents with Pre-op Diagnosis * Hydronephrosis, right [N13.30] now scheduled for PYELOPLASTY, ROBOT-ASSISTED, USING DA COLE XI (Right). Date scheduled is 02/17/2025. last anesthesia evaluation performed 12/18/24 with previous surgery. Patient states no changes in health except for recent UTI. Patient states he is on 10 day course of antibotics. Medical History[1] Family History[2] Social History[3] SURGICAL HISTORY: Surgical History[4] Allergies[5] MEDICATIONS: No current facility-administered medications for this encounter. Current Outpatient Medications: acetaminophen, Take 2 tablets by mouth every 6 hours as needed for pain. colchicine, Take 0.5 tablets by mouth 2 (two) times a day for 14 days, THEN 1 tablet 2 (two) times a day. lisinopril, Take 1 tablet by mouth daily. methocarbamol, Take 1 tablet by mouth 4 (four) times a day as needed for muscle spasms. Sulfamethoxazole-Trimethoprim (BACTRIM PO), Take by mouth 2 times a day. UTI tamsulosin, Take 1 capsule (0.4 mg) by mouth daily. ondansetron ODT, Dissolve 1 tablet on the tongue every 8 hours as needed for nausea or vomiting. (Patient not taking: Reported on 01/02/2025) Renetta Plaza RN [1] Past Medical History: Diagnosis Date Alcohol abuse 07/01/2024 Arthritis Contact dermatitis 07/01/2024 Encephalopathy 07/01/2024 Essential hypertension 04/25/2022 Heberden's nodes of left hand 07/01/2024 Hypertensive encephalopathy syndrome 07/01/2024 Infectious viral hepatitis Hep C-taken the cure recently Irritable bowel syndrome mild case-diagnosed after colonoscopy 2019 Joint pain Motion sickness as a child Pain of left thumb 07/01/2024 Poison rashida dermatitis 07/01/2024 Subcutaneous nodule of left thumb 07/01/2024 Tobacco dependence due to cigarettes 07/01/2024 UTI (urinary tract infection) 01/2025 on bactrim for 10 days [2] Family History Problem Relation Name Age of Onset Hyperthyroidism Sister Malkarena Hyperthermia Neg Hx [3] Social History Tobacco Use Smoking status: Former Average packs/day: 4.0 packs/day for 18.0 years (72.0 ttl pk-yrs) Types: Cigarettes Start date: 1966 Passive exposure: Past Smokeless tobacco: Never Vaping Use Vaping status: Former Start date: 09/30/2017 Quit date: 01/28/2018 Substances: THC Devices: Disposable Substance Use Topics Alcohol use: Yes Alcohol/week: 40.0 standard drinks of alcohol Types: 12 Cans of beer, 28 Shots of liquor per week Drug use: Yes Types: Marijuana Comment: 4 times weekly [4] Past Surgical History: Procedure Laterality Date COLONOSCOPY CYSTOSCOPY 12/15/2024 ([facility]) cystosopy, ANTEGRADE URETEROSCOPY, right nephrostomy tube exchange (Ureter) URETEROSCOPY (Right) INSERTION OR REPLACEMENT, NEPHROSTOMY TUBE (Right) HIP ARTHROPLASTY Bilateral HIP SURGERY Right to replace recalled loli device KIDNEY STONE SURGERY LIVER BIOPSY NEPHROSTOMY 12/04/2024 ([facility]) INSERTION OR REPLACEMENT, NEPHROSTOMY TUBE (Right) PROSTATE BIOPSY SHOULDER SURGERY Left cadaver tendon placed in shoulder TONSILLECTOMY UPPER GASTROINTESTINAL ENDOSCOPY URETEROSCOPY 11/30/2024 ([facility]) URETEROSCOPY, RIGHT RETROGRADE (Right) CYSTOSCOPY (Bladder) [5] Allergies Allergen Reactions Chocolate Dermatitis Prochlorperazine Nausea Muscle tightness (neck) * Preprocedure Instructions - Renetta Plaza RN - 02/05/2025 2:11 PM EDT Home Medication Instructions Current Medications Medication Instructions acetaminophen (Tylenol) 500 MG tablet Take as needed colchicine (Colcrys) 0.6 MG tablet Take morning of surgery lisinopril 40 MG tablet Hold day of surgery methocarbamol (Robaxin) 500 MG tablet Take as needed tamsulosin (Flomax) 0.4 MG 24 hr capsule Take morning of surgery General Preoperative Instructions You will be called the business day before surgery with your arrival time Do not eat or drink thick liquids after midnight, encouraged to drink clear liquids until two hoursprior to arrival time (which include water, Pedialyte, apple juice, Gatorade (avoid reds/blue/purple), avoid carbonated drinks). No alcohol or smoking prior to surgery Arrive on time to avoid delays Parking/Registration procedure explained You MUST have a responsible adult available for transport to and from hospital Visitation policy for the day of surgery reviewed Bring insurance card, photo ID, along with power of regulatory attorney, guardianship or advanced directives if applicable Do not bring money, jewelry or other valuables Hibiclens bathing instructions reviewed if applicable Notify surgeon of fever, illness, any changes or if you decide not to have surgery documented in this encounter Plan of Treatment Upcoming Encounters Date Type Department Care Team (Late st Contact Info) Description 04/08/2025 9:10 AM EDT [facility] Visit [facility] [address], [address] [place] [address] Mayi Ballard MBBS [address] [place], [place] [id number] 06/17/2025 12:00 PM EDT Appointment [facility] [address], [address] [place] [address] 06/17/2025 1:30 PM EDT Office Visit Medical Office Building Urology [address] [facility], [address] [place] [address] Talib Serna MD [address] [place] [address] documented as of this encounter Goals Goal Patient Goal Type Associated Problems Recent Progress Patient-Stated? Author Autogenerat ed Goal Care Plan Autogenerated Problem No Ray Lidia S documented as of this encounter Procedures Procedure Name Priority Date/Time Associated Diagnosis Comments XR ABDOMEN 1 VIEW STAT 02/20/2025 11: [address] UROGRAM STAT 02/20/2025 10:28 AM EDT CBC W/O DIFFERENTIAL Routine 02/20/2025 4:13 AM EDT BASIC METABOLIC PANEL, PLASMA Routine 02/20/2025 4:13 AM EDT CBC W/O DIFFERENTIAL Routine 02/19/2025 4:38 AM EDT BASIC METABOLIC PANEL, PLASMA Routine 02/19/2025 4:38 AM EDT CBC W/O DIFFERENTIAL Routine 02/18/2025 4:18 AM EDT BASIC METABOLIC PANEL, PLASMA Routine 02/18/2025 4:18 AM EDT CBC W/O DIFFERENTIAL Routine 02/17/2025 4:37 PM EDT BASIC METABOLIC PANEL, PLASMA Routine 02/17/2025 4:37 PM EDT SURGICAL PATHOLOGY EXAM Routine 02/17/2025 1:42 PM EDT Hydronephrosis, right URINE CULTURE Routine 02/17/2025 9:00 AM EDT Hydronephrosis, right VA LAP,PYELOPLASTY 02/17/2025 8: 05 AM EDT Hydronephrosis, right TYPE AND SCREEN STAT 02/17/2025 6:48 AM EDT documented in this encounter Results * XR Abdomen 1 View (02/20/2025 11:15 AM EDT) Anatomical Region Laterality Modality Body Digital Radiogra phy Impressions 02/20/2025 11:29 AM EDT No definite evidence of contrast extravasation. CRITICAL RESULT: No. COMMUNICATION: Per this written report. Drafted by Juanis Winchester DO on 02/20/2025 11:25 AM Final report signed by Juanis Winchester DO on 02/20/2025 11:29 AM Narrative 02/20/2025 11:29 AM EDT CLINICAL INDICATION: examine possible contrast extrav after CTU TECHNIQUE: XR ABDOMEN 1 VIEW COMPARISON: CT urogram performed less than 1 hour prior FINDINGS: Excreted contrast within the bilateral collecting systems, ureters, and urinary bladder. No definite evidence of contrast extravasation. Right nephroureteral stent. Bilateral hip arthroplasties. Nonobstructive bowel gas pattern. No pneumoperitoneum. Mild left basilar atelectasis. Procedure Note Juanis Winchester DO - 02/20/2025 CLINICAL INDICATION: examine possible contrast extrav after CTU TECHNIQUE: XR ABDOMEN 1 VIEW COMPARISON: CT urogram performed less than 1 hour prior FINDINGS: Excreted contrast within the bilateral collecting systems, ureters, andurinary bladder. No definite evidence of contrast extravasation. Rightnephroureteral stent. Bilateral hip arthroplasties. Nonobstructive bowelgas pattern. No pneumoperitoneum. Mild left basilar atelectasis. IMPRESSION: No definite evidence of contrast extravasation. CRITICAL RESULT: No. COMMUNICATION: Per this written report. Drafted by Juanis Winchester DO on 02/20/2025 11:25 AM Final report signed by Juanis Winchester DO on 02/20/2025 11:29 AM Talib Serna MD IMG XR PROCEDURES Final Result * CT Urogram (02/20/2025 10:28 AM EDT) Anatomical Region Laterality Modality Abdomen, Pelvis Computed Tomogra phy Impressions 02/23/2025 9:24 AM EDT Postsurgical changes from interval right pyeloplasty without evidence of urine leak. Ill-defined postoperative gas/fluid collection in the right mid abdomen. CRITICAL RESULT: No. COMMUNICATION: Per this written report. By electronically signing this report, I, the attending physician, attest that I have personally reviewed the images/data for the above examination(s) and agree with the final edited report. Drafted by Isabela Wise MD on 02/23/2025 8:33 AM Final report signed by Chadwick Bosch MD on 02/23/2025 9:24 AM Narrative 02/23/2025 9:24 AM EDT CLINICAL INDICATION: S/p ureteral reimplant and pyeloplasty TECHNIQUE: Multiple pre-contrast axial CT images were obtained from lower chest through pubic symphysis, followed by multiple axial CT images of abdomen and pelvis following split bolus administration of IV contrast, Omnipaque 300, 150 mL. Reformatted images in the coronal and sagittal planes were generated from the axial data set to facilitate diagnostic accuracy. Total DLP (Dose-Length Product): 660.25 mGy.cm. Please note: The reported value represents the total of one or more individual components during the CT acquisition on this date and at this time, and as such, the same value may appear in more than one CT report depending on the interpreting/reporting physicians. COMPARISON: 12/24/2024: CT abdomen/pelvis without contrast 12/01/2024: Outside CT abdomen/pelvis with contrast FINDINGS: Kidneys, Ureters, Bladder: Right nephroureteral follows the expected course given interval ureteral reimplantation along the right superolateral margin of the urinary bladder. Normal postoperative appearance of the distal right ureter. Postsurgical changes from interval right pyeloplasty. Mild/moderate right hydronephrosis with a small amount of gas in the distal renal pelvis. Circumferential urothelial thickening, within expected limits. No evidence of active urine leak. Ill-defined postoperative gas and fluid collection in the mid right abdomen overlying the retroperitoneum, measuring 7.8 x 4.7 x 8.4 cm (series 6, image 127 and series 8, image 82). Associated hyperdensity compatible with hematoma, greatest along the right inferior aspect of the collection. Mild mass effect slightly deforms the lateral aspect of the IVC and anteriorly displaces the proximal duodenum. Grossly homogeneous enhancement of bilateral kidneys. No suspicious renal lesions. Stable simple cortical cyst in the left upper pole. No left-sided hydronephrosis. The left ureter is grossly normal. Bilateral pelvicalyceal opacification without soft tissue filling defects. Small amount of presumed hematoma is seen along the posterior urinary bladder which is otherwise normal. Remaining Solid Abdominal and Pelvic Organs: Homogeneous liver enhancement with subcentimeter hypoattenuating lesion in the hepatic dome, likely cyst. Nondilated gallbladder. No biliary ductal dilatation. Normal size spleen. Homogeneous pancreatic enhancement without ductal dilatation. Normal adrenal glands. Prostatomegaly. Prostatic calcifications. GI Tract/Mesentery/Peritoneum: Normal caliber small and large bowel. Mild anterior displacement of the proximal duodenum secondary to the postoperative fluid collection. Sigmoid diverticulosis without acute diverticulitis. No pneumatosis or pneumoperitoneum. Small amount of postoperative extraperitoneal gas. Right retroperitoneal surgical drain in place, not in communication with the postoperative fluid collection detailed above. Free Fluid: Minimal right lower quadrant free fluid. Lymph Nodes and Vasculature: Conspicuous number of nonenlarged retroperitoneal and right lower quadrant mesenteric lymph nodes, compatible with reactive adenopathy. No suspicious or overtly enlarged lymph nodes. Patent, nonaneurysmal aortoiliac vasculature with mild atherosclerotic disease. Musculoskeletal and Body Wall: Right lower quadrant approach surgical drain. Small amount of postoperative soft tissue emphysema in the anterior no acute osseous findings. Bilateral hip arthroplasty. Chronic retrolisthesis of L5 on S1. Lower Chest: Mild left lower lobe atelectasis. No pleural or pericardial effusion. Procedure Note Chadwick Bosch MD - 02/23/2025 CLINICAL INDICATION: S/p ureteral reimplant and pyeloplasty TECHNIQUE: Multiple pre-contrast axial CT images were obtained from lower chestthrough pubic symphysis, followed by multiple axial CT images of abdomenand pelvis following split bolus administration of IV contrast, [id number], 150 mL. Reformatted images in the coronal and sagittal planes weregenerated from the axial data set to facilitate diagnostic accuracy. Total DLP (Dose-Length Product): 660.25 mGy.cm. Please note: The reportedvalue represents the total of one or more individual components during theCT acquisition on this date and at this time, and as such, the same valuemay appear in more than one CT report depending on theinterpreting/reporting physicians. COMPARISON: 12/24/2024: CT abdomen/pelvis without contrast 12/01/2024: Outside CT abdomen/pelvis with contrast FINDINGS: Kidneys, Ureters, Bladder: Right nephroureteral follows the expectedcourse given interval ureteral reimplantation along the rightsuperolateral margin of the urinary bladder. Normal postoperativeappearance of the distal right ureter. Postsurgical changes from interval right pyeloplasty. Mild/moderate righthydronephrosis with a small amount of gas in the distal renal pelvis.Circumferential urothelial thickening, within expected limits. No evidenceof active urine leak. Ill-defined postoperative gas and fluid collectionin the mid right abdomen overlying the retroperitoneum, measuring 7.8 x4.7 x 8.4 cm (series 6, image 127 and series 8, image 82). Associatedhyperdensity compatible with hematoma, greatest along the right inferioraspect of the collection. Mild mass effect slightly deforms the lateralaspect of the IVC and anteriorly displaces the proximal duodenum. Grossly homogeneous enhancement of bilateral kidneys. No suspicious renallesions. Stable simple cortical cyst in the left upper pole. No left-sidedhydronephrosis. The left ureter is grossly normal. Bilateral pelvicalycealopacification without soft tissue filling defects. Small amount ofpresumed hematoma is seen along the posterior urinary bladder which isotherwise normal. Remaining Solid Abdominal and Pelvic Organs: Homogeneous liver enhancementwith subcentimeter hypoattenuating lesion in the hepatic dome, likelycyst. Nondilated gallbladder. No biliary ductal dilatation. Normal sizespleen. Homogeneous pancreatic enhancement without ductal dilatation.Normal adrenal glands. Prostatomegaly. Prostatic calcifications. GI Tract/Mesentery/Peritoneum: Normal caliber small and large bowel. Mildanterior displacement of the proximal duodenum secondary to thepostoperative fluid collection. Sigmoid diverticulosis without acutediverticulitis. No pneumatosis or pneumoperitoneum. Small amount ofpostoperative extraperitoneal gas. Right retroperitoneal surgical drain inplace, not in communication with the postoperative fluid collectiondetailed above. Free Fluid: Minimal right lower quadrant free fluid. Lymph Nodes and Vasculature: Conspicuous number of nonenlargedretroperitoneal and right lower quadrant mesenteric lymph nodes,compatible with reactive adenopathy. No suspicious or overtly enlargedlymph nodes. Patent, nonaneurysmal aortoiliac vasculature with mildatherosclerotic disease. Musculoskeletal and Body Wall: Right lower quadrant approach surgicaldrain. Small amount of postoperative soft tissue emphysema in the anteriorno acute osseous findings. Bilateral hip arthroplasty. Chronicretrolisthesis of L5 on S1. Lower Chest: Mild left lower lobe atelectasis. No pleural or pericardialeffusion. IMPRESSION: Postsurgical changes from interval right pyeloplasty without evidence ofurine leak. Ill-defined postoperative gas/fluid collection in the right mid abdomen. CRITICAL RESULT: No. COMMUNICATION: Per this written report. By electronically signing this report, I, the attending physician, attestthat I have personally reviewed the images/data for the aboveexamination(s) and agree with the final edited report. Drafted by Isablea Wise MD on 02/23/2025 8:33 AM Final report signed by Chadwick Bosch MD on 02/23/2025 9:24 AM us Talib Serna MD IMG CT PROCEDURES Final Result * (ABNORMAL) Basic metabolic panel (02/20/2025 4:13 AM EDT) Glucose, Plasma 108(H) 74 - 99 mg/dL 02/20/2025 4:54 AM EDT [facility] BUN, Plasma 13 8 - 23 mg/dL 02/20/2025 4:54 AM EDT [facility] Creatinine, Plasma 0.61(L) 0.70 - 1.20 mg/dL 02/20/2025 4:54 AM EDT [facility] BUN/Creatinine Ratio 21 02/20/2025 4:54 AM EDT [facility] Sodium, Plasma 137 136 - 145 mmol/L 02/20/2025 4:54 AM EDT [facility] Potassium, Plasma 3.9 3.6 - 4.9 mmol/L 02/20/2025 4:54 AM EDT [facility] Chloride, Plasma 101 97 - 107 mmol/L 02/20/2025 4:54 AM EDT [facility] CO2, Plasma 23 22 - 29 mmol/L 02/20/2025 4:54 AM EDT [facility] Anion Gap 13 6 - 16 mmol/L 02/20/2025 4:54 AM EDT [facility] Total Calcium, Plasma 9.2 8.9 - 10.2 mg/dL 02/20/2025 4:54 AM EDT [facility] eGFRcr 102.7 mL/min/1.7 3m*2 02/20/2025 4:54 AM EDT [facility] Comment:Reported eGFRcr in m L/min/1.73m2 is based the CKD-EPI 2020 equation that does not use a race coefficient. Blood Venous blood specimen / Unknown Venipuncture / Unknown 02/20/2025 4:13 AM EDT 02/20/2025 4:23 AM EDT us Talib Serna MD LAB BLOOD ORDERABLES Final Res ult [facility] [address] [place] [address] * (ABNORMAL) Hemogram (CBC) (02/20/2025 4:13 AM EDT) WBC Count 15.39(H) 3.70 - 10.30 10*3/uL LAB HEMATOLOGY METHOD 02/20/2025 4:41 AM EDT [facility] RBC Count 4.51(L) 4.60 - 6.10 10*6/uL LAB HEMATOLOGY METHOD 02/20/2025 4:41 AM EDT [facility] HGB 14.0 13.7 - 17.5 g/dL LAB HEMATOLOGY METHOD 02/20/2025 4:41 AM EDT [facility] HCT 41.4 40.0 - 51.0 % LAB HEMATOLOGY METHOD 02/20/2025 4:41 AM EDT [facility] Platelet Count 202 155 - 369 10*3/uL LAB HEMATOLOGY METHOD 02/20/2025 4:41 AM EDT [facility] MCV 92 79 - 98 fL LAB HEMATOLOGY METHOD 02/20/2025 4:41 AM EDT [facility] MCH 31.0 26.0 - 32.0 pg LAB HEMATOLOGY METHOD 02/20/2025 4:41 AM EDT [facility] MCHC 33.8 30.7 - 35.5 g/dL LAB HEMATOLOGY METHOD 02/20/2025 4:41 AM EDT [facility] RDW 13.5 11.5 - 14.5 % LAB HEMATOLOGY METHOD 02/20/2025 4:41 AM EDT [facility] MPV 10.4 8.8 - 12.5 fL LAB HEMATOLOGY METHOD 02/20/2025 4:41 AM EDT [facility] nRBC 0.0 <=0.0 per 100 WBCs LAB HEMATOLOGY METHOD 02/20/2025 4:41 AM EDT [facility] Blood Venous blood specimen / Unknown Venipuncture / Unknown 02/20/2025 4:13 AM EDT 02/20/2025 4:26 AM EDT us Talib Serna MD LAB BLOOD ORDERABLES Final Res ult [facility] [address] [place] [address] * (ABNORMAL) Basic metabolic panel (02/19/2025 4:38 AM EDT) [facility] Glucose, Plasma 105(H) 74 - 99 mg/dL 02/19/2025 5:20 AM EDT [facility] BUN, Plasma 8 8 - 23 mg/dL 02/19/2025 5:20 AM EDT [facility] Creatinine, Plasma 0.55(L) 0.70 - 1.20 mg/dL 02/19/2025 5:20 AM EDT [facility] BUN/Creatinine Ratio 15 02/19/2025 5:20 AM EDT [facility] Sodium, Plasma 135(L) 136 - 145 mmol/L 02/19/2025 5:20 AM EDT [facility] Potassium, Plasma 3.7 3.6 - 4.9 mmol/L 02/19/2025 5:20 AM EDT [facility] Chloride, Plasma 101 97 - 107 mmol/L 02/19/2025 5:20 AM EDT [facility] CO2, Plasma 24 22 - 29 mmol/L 02/19/2025 5:20 AM EDT [facility] Anion Gap 10 6 - 16 mmol/L 02/19/2025 5:20 AM EDT [facility] Total Calcium, Plasma 9.0 8.9 - 10.2 mg/dL 02/19/2025 5:20 AM EDT [facility] eGFRcr 106.0 mL/min/1.7 3m*2 02/19/2025 5:20 AM EDT [facility] Comment:Reported eGFRcr in m L/min/1.73m2 is based the CKD-EPI 2020 equation that does not use a race coefficient. Blood Venous blood specimen / Unknown Venipuncture / Unknown 02/19/2025 4:38 AM EDT 02/19/2025 4:48 AM EDT us Talib Serna MD LAB BLOOD ORDERABLES Final Res ult [facility] [address] [place] [address] * (ABNORMAL) Hemogram (CBC) (02/19/2025 4:38 AM EDT) [facility] Signature WBC Count 13.20(H) 3.70 - 10.30 10*3/uL LAB HEMATOLOGY METHOD 02/19/2025 5:04 AM EDT [facility] RBC Count 4.36(L) 4.60 - 6.10 10*6/uL LAB HEMATOLOGY METHOD 02/19/2025 5:04 AM EDT [facility] HGB 13.7 13.7 - 17.5 g/dL LAB HEMATOLOGY METHOD 02/19/2025 5:04 AM EDT [facility] HCT 39.5(L) 40.0 - 51.0 % LAB HEMATOLOGY METHOD 02/19/2025 5:04 AM EDT [facility] Platelet Count 157 155 - 369 10*3/uL LAB HEMATOLOGY METHOD 02/19/2025 5:04 AM EDT [facility] MCV 91 79 - 98 fL LAB HEMATOLOGY METHOD 02/19/2025 5:04 AM EDT [facility] MCH 31.4 26.0 - 32.0 pg LAB HEMATOLOGY METHOD 02/19/2025 5:04 AM EDT [facility] MCHC 34.7 30.7 - 35.5 g/dL LAB HEMATOLOGY METHOD 02/19/2025 5:04 AM EDT [facility] RDW 13.5 11.5 - 14.5 % LAB HEMATOLOGY METHOD 02/19/2025 5:04 AM EDT [facility] MPV 10.4 8.8 - 12.5 fL LAB HEMATOLOGY METHOD 02/19/2025 5:04 AM EDT [facility] nRBC 0.0 <=0.0 per 100 WBCs LAB HEMATOLOGY METHOD 02/19/2025 5:04 AM EDT [facility] Blood Venous blood specimen / Unknown Venipuncture / Unknown 02/19/2025 4:38 AM EDT 02/19/2025 4:49 AM EDT us Talib Serna MD LAB BLOOD ORDERABLES Final Res ult [facility] [address] [place] [address] * (ABNORMAL) Basic metabolic panel (02/18/2025 4:18 AM EDT) [facility] Glucose, Plasma 105(H) 74 - 99 mg/dL 02/18/2025 5:01 AM EDT [facility] BUN, Plasma 13 8 - 23 mg/dL 02/18/2025 5:01 AM EDT [facility] Creatinine, Plasma 0.60(L) 0.70 - 1.20 mg/dL 02/18/2025 5:01 AM EDT [facility] BUN/Creatinine Ratio 22 02/18/2025 5:01 AM EDT [facility] Sodium, Plasma 138 136 - 145 mmol/L 02/18/2025 5:01 AM EDT [facility] Potassium, Plasma 4.2 3.6 - 4.9 mmol/L 02/18/2025 5:01 AM EDT [facility] Chloride, Plasma 104 97 - 107 mmol/L 02/18/2025 5:01 AM EDT [facility] CO2, Plasma 22 22 - 29 mmol/L 02/18/2025 5:01 AM EDT [facility] Anion Gap 12 6 - 16 mmol/L 02/18/2025 5:01 AM EDT [facility] Total Calcium, Plasma 8.8(L) 8.9 - 10.2 mg/dL 02/18/2025 5:01 AM EDT [facility] eGFRcr 103.2 mL/min/1.7 3m*2 02/18/2025 5:01 AM EDT [facility] Comment:Reported eGFRcr in m L/min/1.73m2 is based the CKD-EPI 2020 equation that does not use a race coefficient. Blood Venous blood specimen / Unknown Venipuncture / Unknown 02/18/2025 4:18 AM EDT 02/18/2025 4:31 AM EDT us Talib Serna MD LAB BLOOD ORDERABLES Final Res ult [facility] [address] [place] [address] * (ABNORMAL) Hemogram (CBC) (02/18/2025 4:18 AM EDT) [facility] Signature WBC Count 14.14(H) 3.70 - 10.30 10*3/uL LAB HEMATOLOGY METHOD 02/18/2025 4:38 AM EDT [facility] RBC Count 4.26(L) 4.60 - 6.10 10*6/uL LAB HEMATOLOGY METHOD 02/18/2025 4:38 AM EDT [facility] HGB 13.2(L) 13.7 - 17.5 g/dL LAB HEMATOLOGY METHOD 02/18/2025 4:38 AM EDT [facility] HCT 39.7(L) 40.0 - 51.0 % LAB HEMATOLOGY METHOD 02/18/2025 4:38 AM EDT [facility] Platelet Count 191 155 - 369 10*3/uL LAB HEMATOLOGY METHOD 02/18/2025 4:38 AM EDT [facility] MCV 93 79 - 98 fL LAB HEMATOLOGY METHOD 02/18/2025 4:38 AM EDT [facility] MCH 31.0 26.0 - 32.0 pg LAB HEMATOLOGY METHOD 02/18/2025 4:38 AM EDT [facility] MCHC 33.2 30.7 - 35.5 g/dL LAB HEMATOLOGY METHOD 02/18/2025 4:38 AM EDT [facility] RDW 13.5 11.5 - 14.5 % LAB HEMATOLOGY METHOD 02/18/2025 4:38 AM EDT [facility] MPV 10.2 8.8 - 12.5 fL LAB HEMATOLOGY METHOD 02/18/2025 4:38 AM EDT [facility] nRBC 0.0 <=0.0 per 100 WBCs LAB HEMATOLOGY METHOD 02/18/2025 4:38 AM EDT [facility] Blood Venous blood specimen / Unknown Venipuncture / Unknown 02/18/2025 4:18 AM EDT 02/18/2025 4:30 AM EDT us Talib Serna MD LAB BLOOD ORDERABLES Final Res ult [facility] [address] [place] [address] * (ABNORMAL) Basic metabolic panel (02/17/2025 4:37 PM EDT) Glucose, Plasma 142(H) 74 - 99 mg/dL 02/17/2025 5:37 PM EDT [facility] BUN, Plasma 14 8 - 23 mg/dL 02/17/2025 5:37 PM EDT [facility] Creatinine, Plasma 0.67(L) 0.70 - 1.20 mg/dL 02/17/2025 5:37 PM EDT [facility] BUN/Creatinine Ratio 02/17/2025 5:37 PM EDT [facility] Sodium, Plasma 139 136 - 145 mmol/L 02/17/2025 5:37 PM EDT [facility] Potassium, Plasma 4.4 3.6 - 4.9 mmol/L 02/17/2025 5:37 PM EDT [facility] Chloride, Plasma 104 97 - 107 mmol/L 02/17/2025 5:37 PM EDT [facility] CO2, Plasma 20(L) 22 - 29 mmol/L 02/17/2025 5:37 PM EDT [facility] Anion Gap 15 6 - 16 mmol/L 02/17/2025 5:37 PM EDT [facility] Total Calcium, Plasma 8.8(L) 8.9 - 10.2 mg/dL 02/17/2025 5:37 PM EDT [facility] eGFRcr 99.8 mL/min/1.7 3m*2 02/17/2025 5:37 PM EDT [facility] Comment:Reported eGFRcr in m L/min/1.73m2 is based the CKD-EPI 2020 equation that does not use a race coefficient. Blood Venous blood specimen / Unknown Venipuncture / Unknown 02/17/2025 4:37 PM EDT 02/17/2025 5:04 PM EDT us Talib Serna MD LAB BLOOD ORDERABLES Final Res ult [facility] [address] [place] [address] * (ABNORMAL) CBC W/O Differential (02/17/2025 4:37 PM EDT) WBC Count 11.01(H) 3.70 - 10.30 10*3/uL LAB HEMATOLOGY METHOD 02/17/2025 5:26 PM EDT [facility] RBC Count 4.65 4.60 - 6.10 10*6/uL LAB HEMATOLOGY METHOD 02/17/2025 5:26 PM EDT [facility] HGB 14.5 13.7 - 17.5 g/dL LAB HEMATOLOGY METHOD 02/17/2025 5:26 PM EDT [facility] HCT 43.2 40.0 - 51.0 % LAB HEMATOLOGY METHOD 02/17/2025 5:26 PM EDT [facility] Platelet Count 169 155 - 369 10*3/uL LAB HEMATOLOGY METHOD 02/17/2025 5:26 PM EDT [facility] MCV 93 79 - 98 fL LAB HEMATOLOGY METHOD 02/17/2025 5:26 PM EDT [facility] MCH 31.2 26.0 - 32.0 pg LAB HEMATOLOGY METHOD 02/17/2025 5:26 PM EDT [facility] MCHC 33.6 30.7 - 35.5 g/dL LAB HEMATOLOGY METHOD 02/17/2025 5:26 PM EDT [facility] RDW 13.6 11.5 - 14.5 % LAB HEMATOLOGY METHOD 02/17/2025 5:26 PM EDT [facility] MPV 10.4 8.8 - 12.5 fL LAB HEMATOLOGY METHOD 02/17/2025 5:26 PM EDT [facility] nRBC 0.0 <=0.0 per 100 WBCs LAB HEMATOLOGY METHOD 02/17/2025 5:26 PM EDT [facility] Blood Venous blood specimen / Unknown Venipuncture / Unknown 02/17/2025 4:37 PM EDT 02/17/2025 5:10 PM EDT us Talib Serna MD LAB BLOOD ORDERABLES Final Res ult [facility] [address] [place] [address] * Surgical Pathology Exam (02/17/2025 1:42 PM EDT) Case Report Surgical Pathology Case: [id number] Authorizing Provider: Talib Serna MD Collected: 02/17/2025 1342 Ordering Location: [facility] Received: 02/17/2025 1427 Pathologist: Lesia Cole MD Specimen: Other (specify site), right proximal ureter 02/19/2025 11:07 AM EDT [facility] Final Diagnosis A. 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 02/19/2025 11:07 AM EDT [facility] at 1107 EDT Clinical Information hydronephrosis of right kidney 02/19/2025 11:07 AM EDT [facility] Gross Description A. RIGHT PROXIMAL URETER Received in formalin labeled right proximal ureter are multiple pieces of pink-desir rubbery tissue roughened with cauterization measuring 2.3 x 2.0 x 0.7 cm in aggregate. Entirely submitted in cassette A1. Cold Time: <1m Iveth Ramírez 02/19/2025 11:07 AM EDT [facility] Note: A resident was involved in the service. I attest I examined the relevant preparations for the specimens and confirmed the diagnosis or interpretation. 02/19/2025 11:07 AM EDT [facility] Tissue Topography unknown / Unknown 02/17/2025 1:42 PM EDT 02/17/2025 2:27 PM EDT Comment:Pre-op diagnosis: hydronephrosis of right kidney Talib Serna MD LAB PATHOLOGY ORDERABLES Final Result [facility] [address] [place] [address] * (ABNORMAL) Urine Culture (02/17/2025 9:00 AM EDT) Culture 1,000 - 10,000 CFU/mL Lucie albicans(A) 02/19/2025 1:01 PM EDT [facility] Comment: This result was determined by MALDI tof Mass spectrometry. This assay was developed and its performance characteristics determined by [facility] as appropriate for clinical purposes. This assay has not been cleared or approved by the FDA, but is performed in a CLIA regulated laboratory that is qualified to perform high complexity testing. Edited result: Previously reported as Yeast on 02/19/2025 at 0520 EDT. Urine Urinary bladder structure / Unknown 02/17/2025 9:00 AM EDT 02/17/2025 9:27 AM EDT Comment:Pre-op diagnosis: hydronephrosis of right kidney Talib Serna MD LAB MICROBIOLOGY - GENERAL ORD ERABLES Final Result Performing Organization Address [facility] Co de Phone Number [facility] [address] [place] [address] * Type and Screen (02/17/2025 6:48 AM EDT) ABO/Rh O Positive 02/17/2025 6:30 AM EDT [facility] Antibody Screen Negative 02/17/2025 6:30 AM EDT [facility] Specimen Expiration 02/20/2025 23:59 02/17/2025 6:30 AM EDT [facility] Blood Venous blood specimen / Unknown Venipuncture / Unknown 02/17/2025 6:48 AM EDT 02/17/2025 6:53 AM EDT us Talib Serna MD LAB BLOOD BANK TEST ORDERABLES Final Result Performing Organization Address [facility] de Phone Number BLOOD BANK [address] documented in this encounter Visit Diagnoses Diagnosis Ureteropelvic junction (UPJ) obstruction, right- Primary Hydronephrosis, right Hydronephrosis UPJ (ureteropelvic junction) obstruction Other ureteric obstruction documented in this encounter Admitting Diagnoses Diagnosis Ureteropelvic junction (UPJ) obstruction, right UPJ (ureteropelvic junction) obstruction Other ureteric obstruction documented in this encounter Administered Medications Inactive Administered Medications - up to 3 most recent administrations Medication Order MAR Action Action Date Dose Rate Site acetaminophen (Tylenol) tablet 1,000 mg 1,000 mg, Oral, Every 6 hours scheduled, First dose (after last modification) on Sat02/17/25 at 2100, Until Discontinued, Routine, Recovery(Phase II-Outpatient)/On Unit(Inpatient) Given 02/20/2025 12:35 PM EDT 1,000 mg Given 02/19/2025 11:35 PM EDT 1,000 mg Given 02/19/2025 5:07 PM EDT 1,000 mg acetaminophen (Tylenol) tablet 650 mg 650 mg, Oral, Every 6 hours PRN, Starting on Sat02/17/25 at 1421, Until Sat02/17/25 at 1745, Routine, Recovery(Phase II-Outpatient)/On Unit(Inpatient), mild pain Given 02/17/2025 3:45 PM EDT 650 mg bisacodyl (Dulcolax) suppository 10 mg 10 mg, Rectal, Daily PRN, Starting on Sat02/19/25 at 1910, Until Sat02/20/25 at 1718, Routine, constipation Given 02/19/2025 9:36 PM EDT 10 mg docusate sodium (Colace) capsule 100 mg 100 mg, Oral, 2 times daily, First dose on Sat02/17/25 at 2100, Until Discontinued, Routine, Recovery(Phase II-Outpatient)/On Unit(Inpatient) Given 02/20/2025 8:03 AM EDT 100 mg Given 02/19/2025 9:36 PM EDT 100 mg Given 02/19/2025 8:36 AM EDT 100 mg droperidol (Inapsine) injection 0.625 mg 0.625 mg, Intravenous, Once as needed, 1 dose, Starting on Sat02/17/25 at 1556, Until Sat02/17/25 at 1559, Routine, Recovery(Phase II-Outpatient)/On Unit(Inpatient), nausea Given 02/17/2025 3:59 PM EDT 0.625 mg fluconazole (Diflucan) tablet 200 mg 200 mg, Oral, Daily, First dose (after last modification) on Brittney 02/18/25 at 0900, Until Discontinued, Routine, Recovery(Phase II-Outpatient)/On Unit(Inpatient) Given 02/20/2025 8:03 AM EDT 200 mg Given 02/19/2025 8:36 AM EDT 200 mg Given 02/18/2025 8:39 AM EDT 200 mg heparin (porcine) injection 5,000 Units 5,000 Units, Subcutaneous, Once, 1 dose, On Sat02/17/25 at 0730, Routine, Holding - Preprocedure Given 02/17/2025 6:51 AM EDT 5,000 Units Left Upper Arm (Back ) heparin (porcine) injection 5,000 Units 5,000 Units, Subcutaneous, Every 8 hours scheduled, First dose on Sat02/17/25 at 1700, Until Discontinued, Routine, Recovery(Phase II-Outpatient)/On Unit(Inpatient) Given 02/20/2025 12:35 PM EDT 5,000 Units Right Lower Abdomen Given 02/20/2025 5:35 AM EDT 5,000 Units R ight Outer Thigh Given 02/19/2025 9:37 PM EDT 5,000 Units R ight Upper Arm (Back) hydrALAZINE (Apresoline) injection 10 mg 10 mg, Intravenous, Every 6 hours PRN, Starting on Sat02/19/25 at 0423, Until 02/20/25 at 1718, Routine, high blood pressure HYDROmorphone (Dilaudid) injection 0.5 mg 0.5 mg, Intravenous, Once, 1 dose, On Sat02/17/25 at 1845, Routine, Recovery(Phase II-Outpatient)/On Unit(Inpatient) Given 02/17/2025 5:51 PM EDT 0.5 mg iohexol (OMNIPaque) 300 MG/ML injection 150 mL 150 mL, Intravenous, Once in imaging, 1 dose, Starting on 02/20/25 at 0842, Until 02/20/25 at 1012, Routine, Imaging Protocol Orders Given 02/20/2025 10:12 AM EDT 150 mL ketorolac (Toradol) injection 15 mg 15 mg, Intravenous, Once, 1 dose, On Sat02/19/25 at 1345, STAT Given 02/19/2025 2:06 PM EDT 15 mg lactated Ringer's infusion 50 mL/hr, Intravenous, Continuous, Starting on Sat02/17/25 at 1700, Until Brittney 02/18/25 at 1347, Routine Rate/Dose Change 02/18/2025 8:39 AM EDT 50 mL/hr 50 mL/hr New Bag 02/18/2025 1:01 AM EDT 75 mL/hr 75 mL/hr Continued from OR 02/17/2025 4:20 PM EDT 75 mL/hr 75 mL/ hr lidocaine (Lidoderm) 5 % patch 1 patch 1 patch, Apply externally, Every 24 hours, First dose on Sat02/17/25 at 1515, Until Discontinued, Administer over 12 Hours, Routine Medication Applied 02/18/2025 2:56 PM EDT 1 patch Abdominal Tissue Medication Applied 02/17/2025 2:27 PM EDT 1 patch Abdominal Tissue methocarbamol (Robaxin) tablet 500 mg 500 mg, Oral, 4 times daily, First dose on Sat02/17/25 at 1800, Until Discontinued, Routine Given 02/20/2025 12:35 PM EDT 500 mg Given 02/20/2025 8:04 AM EDT 500 mg Given 02/19/2025 9:36 PM EDT 500 mg mupirocin (Bactroban) 2 % ointment 1 Application Each Nostril, 2 times daily, 10 doses, First dose on Sat02/17/25 at 2215, Last dose on Sat02/22/25 at 0900, Routine Given 02/20/2025 8:03 AM EDT 1 Application Given 02/19/2025 9:36 PM EDT 1 Application Given 02/19/2025 8:36 AM EDT 1 Application ondansetron (Zofran) injection 4 mg 4 mg, Intravenous, Once as needed, 1 dose, Starting on Sat02/17/25 at 1355, Until Sat02/17/25 at 1541, Routine, Recovery (Phase I only), nausea, vomiting Given 02/17/2025 3:41 PM EDT 4 mg ondansetron (Zofran) injection 4 mg 4 mg, Intravenous, Every 6 hours PRN, Starting on Sat02/17/25 at 2000, Until Sat02/20/25 at 1718, Routine, vomiting, nausea Given 02/19/2025 11:35 PM EDT 4 mg Given 02/19/2025 12:38 AM EDT 4 mg oxyCODONE (Roxicodone) immediate release tablet 10 mg 10 mg, Oral, Once as needed, 2 doses, Starting on Sat02/17/25 at 1355, Until Sat02/17/25 at 1700, Routine, Recovery (Phase I only), pain score of 6-8 out of 10 Given 02/17/2025 5:00 PM EDT 10 mg oxyCODONE (Roxicodone) immediate release tablet 10 mg 10 mg, Oral, Every 4 hours PRN, Starting on Sat02/17/25 at 1745, Until 02/20/25 at 1718, Routine, Recovery(Phase II-Outpatient)/On Unit(Inpatient), severe pain oxyCODONE (Roxicodone) immediate release tablet 5 mg 5 mg, Oral, Every 4 hours PRN, Starting on Sat02/17/25 at 1745, Until 02/20/25 at 1718, Routine, Recovery(Phase II-Outpatient)/On Unit(Inpatient), moderate pain Povidone-Iodine 5 % swab solution 1 Application Nasal, Once, 1 dose, On Sat02/17/25 at 0730, Routine Given 02/17/2025 6:51 AM EDT 1 Application senna (Senokot) tablet 17.2 mg 17.2 mg (2 tablet), Oral, 2 times daily, First dose on Sat02/17/25 at 2100, Until Discontinued, Routine, Recovery(Phase II-Outpatient)/On Unit(Inpatient) Given 02/20/2025 8:04 AM EDT 17.2 mg Given 02/19/2025 9:36 PM EDT 17.2 mg Given 02/19/2025 8:36 AM EDT 17.2 mg tamsulosin (Flomax) 24 hr capsule 0.4 mg 0.4 mg, Oral, Daily, First dose on Sat02/17/25 at 1700, Until Discontinued, Routine, Recovery(Phase II-Outpatient)/On Unit(Inpatient) Given 02/20/2025 8:03 AM EDT 0.4 mg Given 02/19/2025 8:36 AM EDT 0.4 mg Given 02/18/2025 8:39 AM EDT 0.4 mg documented in this encounter Active and Recently Administered Medications Times are shown in EDT. Scheduled Medication Order 02/18/2025 02/19/2025 02/20/2025 acetaminophen (Tylenol) tablet 1,000 mg 1,000 mg, Oral, Every 6 hours scheduled, First dose (after last modification) on Sat02/17/25 at 2100, Until Discontinued, Routine, Recovery(Phase II-Outpatient)/On Unit(Inpatient) 0640 (Given - Provider: Chani Schwab RN)1230 (Not Given - Provider: David David RN - Reason: Patient/family refused)1758 (Given - Provider: Abbey Ji LPN) 0033 (Given - Provider: Chani Schwab RN)0652 (Given - Provider: Chani Schwab RN)1212 (Given - Provider: Jose Alcaraz RN)1707 (Given - Provider: Jose Alcaraz RN)2335 (Given - Provider: Chani Schwab RN) 0723 (Not Given - Provider: Chani Schwab RN - Reason: Patient/family refused)1235 (Given - Provider: Chadwick Alvarez RN) docusate sodium (Colace) capsule 100 mg 100 mg, Oral, 2 times daily, First dose on Sat02/17/25 at 2100, Until Discontinued, Routine, Recovery(Phase II-Outpatient)/On Unit(Inpatient) 0839 (Given - Provider: David David RN)2134 (Given - Provider: Chani Schwab RN) 0836 (Given - Provider: Jose Alcaraz RN)2136 (Given - Provider: Chani Schwab RN) 0803 (Given - Provider: Chani Schwab RN) fluconazole (Diflucan) tablet 200 mg 200 mg, Oral, Daily, First dose (after last modification) on Brittney 02/18/25 at 0900, Until Discontinued, Routine, Recovery(Phase II-Outpatient)/On Unit(Inpatient) 0839 (Given - Provider: David David RN) 0836 (Given - Provider: Jose Alcaraz RN) 0803 (Given - Provider: Chani Schwab RN) heparin (porcine) injection 5,000 Units 5,000 Units, Subcutaneous, Every 8 hours scheduled, First dose on Sat02/17/25 at 1700, Until Discontinued, Routine, Recovery(Phase II-Outpatient)/On Unit(Inpatient) 0059 (Given - Provider: Chani Schwab RN)0640 (Given - Provider: Chani Schwab RN)1455 (Given - Provider: David David RN)2134 (Given - Provider: Chani Schwab RN) 0652 (Given - Provider: Chani Schwab RN)1408 (Given - Provider: Jose Alcaraz RN)2137 (Given - Provider: Chani Schwab RN) 0535 (Given - Provider: Chani Schwab RN)1235 (Given - Provider: Chadwick Alvarez RN) iohexol (OMNIPaque) 300 MG/ML injection 150 mL (COMPLETED) 150 mL, Intravenous, Once in imaging, 1 dose, Starting on 02/20/25 at 0842, Until 02/20/25 at 1012, Routine, Imaging Protocol Orders 1012 (Given - Provid er: Lidia Dawson) ketorolac (Toradol) injection 15 mg (COMPLETED) 15 mg, Intravenous, Once, 1 dose, On Sat02/19/25 at 1345, STAT 1406 (Given - Provider: Jose Alcaraz RN) lidocaine (Lidoderm) 5 % patch 1 patch 1 patch, Apply externally, Every 24 hours, First dose on Sat02/17/25 at 1515, Until Discontinued, Administer over 12 Hours, Routine 0333 (Medication Removed - Provider: Chani Schwab RN)1456 (Medication Applied - Provider: David David RN) 0328 (Medication Removed - Provider: Chani Schwab RN)1423 (Not Given - Provider: Jose Alcaraz RN - Reason: Patient/family refused) 1515 (Canceled Entry - Provider: Automatic Discharge Provider - Comment: Automatically canceled at discontinue of medication order) methocarbamol (Robaxin) tablet 500 mg 500 mg, Oral, 4 times daily, First dose on Sat02/17/25 at 1800, Until Discontinued, Routine 0839 (Given - Provider: David David RN)1455 (Given - Provider: David David RN)1758 (Given - Provider: Abbey Ji LPN)2134 (Given - Provider: Chani Schwab RN) 0836 (Given - Provider: Jose Alcaraz RN)1408 (Given - Provider: Jose Alcaraz RN)1707 (Given - Provider: Jose Alcaraz RN)213 (Given - Provider: Chani Schwab RN) 0804 (Given - Provider: Chani Schwab RN)1235 (Given - Provider: Chadwick Alvarez RN) mupirocin (Bactroban) 2 % ointment 1 Application Each Nostril, 2 times daily, 10 doses, First dose on Sat02/17/25 at 2215, Last dose on Sat02/22/25 at 0900, Routine 0839 (Given - Provider: David David RN)2133 (Given - Provider: Chani Schwab RN) 0836 (Given - Provider: Jose Alcaraz RN)2135 (Given - Provider: Chani Schwab RN) 0803 (Given - Provider: Chani Schwab RN) senna (Senokot) tablet 17.2 mg 17.2 mg (2 tablet), Oral, 2 times daily, First dose on Sat02/17/25 at 2100, Until Discontinued, Routine, Recovery(Phase II-Outpatient)/On Unit(Inpatient) 0839 (Given - Provider: David David RN)2133 (Given - Provider: Chani Schwab RN) 0836 (Given - Provider: Jose Alcaraz RN)2135 (Given - Provider: Chani Schwab RN) 0804 (Given - Provider: Chani Schwab RN) tamsulosin (Flomax) 24 hr capsule 0.4 mg 0.4 mg, Oral, Daily, First dose on Sat02/17/25 at 1700, Until Discontinued, Routine, Recovery(Phase II-Outpatient)/On Unit(Inpatient) 0839 (Given - Provider: David David RN) 0836 (Given - Provider: Jose Alcaraz RN) 0803 (Given - Provider: Chani Schwab RN) Continuous Medication Order 02/18/2025 02/19/2025 02/20/2025 lactated Ringer's infusion (CANCELED) 50 mL/hr, Intravenous, Continuous, Starting on Sat02/17/25 at 1700, Until Brittney 02/18/25 at 1347, Routine 0101 (New Bag - Provider: Chani Schwab RN)0839 (Rate/Dose Change - Provider: David David RN) PRN Medication Order 02/18/2025 02/19/2025 02/20/2025 bisacodyl (Dulcolax) suppository 10 mg 10 mg, Rectal, Daily PRN, Starting on Sat02/19/25 at 1910, Until 02/20/25 at 1718, Routine, constipation 2136 (Given - Provider: Bianka Schwab RN) hydrALAZINE (Apresoline) injection 10 mg 10 mg, Intravenous, Every 6 hours PRN, Starting on Sat02/19/25 at 0423, Until 02/20/25 at 1718, Routine, high blood pressure lidocaine (Uro-Jet) 2 % gel 1 Application Urethral, As needed, Starting on Sat02/17/25 at 1606, Until 02/20/25 at 1718, Routine, mild pain, Adult Male Difficult Insertion Protocol-use with Coude Catheter insertion ondansetron (Zofran) injection 4 mg 4 mg, Intravenous, Every 6 hours PRN, Starting on Sat02/17/25 at 2000, Until 02/20/25 at 1718, Routine, vomiting, nausea 0038 (Given - Provider: Bianka Schwab RN)2335 (Given - Provider: Chani Schwab RN) oxyCODONE (Roxicodone) immediate release tablet 10 mg(Linked Group 1) 10 mg, Oral, Every 4 hours PRN, Starting on Sat02/17/25 at 1745, Until 02/20/25 at 1718, Routine, Recovery(Phase II-Outpatient)/On Unit(Inpatient), severe pain oxyCODONE (Roxicodone) immediate release tablet 5 mg(Linked Group 1) 5 mg, Oral, Every 4 hours PRN, Starting on Sat02/17/25 at 1745, Until 02/20/25 at 1718, Routine, Recovery(Phase II-Outpatient)/On Unit(Inpatient), moderate pain Linked Groups Order Group 1: oxyCODONE (Roxicodone) immediate release tablet 5 mgJump to med 5 mg, Oral, Every 4 hours PRN, Starting on Sat02/17/25 at 1745, Until 02/20/25 at 1718, Routine, Recovery(Phase II-Outpatient)/On Unit(Inpatient), moderate pain Or oxyCODONE (Roxicodone) immediate release tablet 10 mgJump to med 10 mg, Oral, Every 4 hours PRN, Starting on Sat02/17/25 at 1745, Until 02/20/25 at 1718, Routine, Recovery(Phase II-Outpatient)/On Unit(Inpatient), severe pain documented in this encounter Additional Health Concerns Active Problems Noted Date Diagnosed Date Autogenerated Problem 02/18/2025 Assessment Noted Time A fall risk assessment has been complete d for the patient 12/31/2024 3:03 PM EDT A Body Mass Index follow-up plan has been documented for the patient 02/20/2025 1:45 PM EDT documented as of this encounter Care Teams Management Trainee Marketing Relationship Specialty Start Date End Date Thiago Gregory APRN [address] [place] [address] PCP - General 03/20/24 Doug Bill, RN `````````````````````[facility] - PACU - [facility], [facility] Registered Nurse 12/23/24 documented as of this encounter
--- OUTSIDE RECORDS SUMMARY | 2025-02-17 08:11 | XMS_ITS | Encounter Summary ---
Author Organization Healthcare Address [address] [place] [address] Care Team Providers Care Wireless Store Manager Name Role Phone Thiago Gregory APRN Primary Care Provider [phone] Doug Bill RN Unavailable Unavailable Reason for Visit * Auth/Cert (Routine) Specialty Diagnoses / Procedures Referred By Contac t Referred To Contact Diagnoses Hydronephrosis, right hydronephrosis of right kidney Procedures SC LAP,PYELOPLASTY PYELOPLASTY, ROBOT-ASSISTED, USING DA COLE XI Talib Serna MD [address] [place] [address] Phone: tel: fax: [facility]PERATING ROOM [address] [place] [address] Phone: tel: Referral ID Status Reason Start Date Expiration Date Visits Re quested Visits Authorized [id number] 1 1 Encounter Details Date Type Department Care Team (Late st Contact Info) Description 02/17/2025 8:11 AM EDT Anesthesia Event [facility] [address] [place] [address] Gordo Pham, BETZAIDA [address] [place] [address] Jose Francisco Thakur, DO [address] [place] [address] Anesthesia Record Procedure Summary Procedure Name Responsible Anesthesiologist Anesthesia Start Time Anesthesia Stop Time PYELOPLASTY, ROBOT-ASSISTED, USING DA COLE XI (Right) AnkitGabrielua Frankie, DIRECTOR OF FIELD SERVICE 02/17/25 0811 02/17/25 1400 Events Date Time [...] and Airways Type Details Placement Removal Wound 12/05/24; 0027; N; Y es; Incision; Back; Lower, Right 12/05/24 0027 by Fabiola Waller RN Wound 12/22/24; 0911; N; Y es; Surgical; Abdomen; Lower, Right, Mid, Outer 12/22/24 0911 by Jarret Wisdom RN Wound 02/17/25; Surgical; Abdomen; Right, Lower 02/17/25 0000 by Mandy Huff RN Wound 02/17/25; 1032; Surg ical; Laparoscopic; Abdomen; Right, Upper 02/17/25 1032 by Rekha Garrison RN Peripheral IV Placement Date: 01/29 10/24; Placement Time: 0630; Catheter Size: 20 G; Orientation: Posterior, Left; Location: Hand; Site Prep: Chlorhexidine ; Local Anesth: [place]; Technique: Anatomical landmarks; Inserted by: mario sands rn; Insertion Attempts: 1; Patient Tolerance: Tolerated well; Removal Date: 02/19/25; Removal Reason: Per patient/family request (states painful) 02/17/25 0630 by Arlene Sands RN 02/19/25 0000 by Chani Schwab RN ETT Placement Date: 01/29 10/24; Placement Time: 0819 (created via procedure documentation); Mask Ventilation: 2; Technique: Direct laryngoscopy; Type: ETT - single; Single Lumen Tube Size: 7.5 mm; Cuffed: Yes; Laryngoscope: Jennifer; Blade Size: 4; Location: Oral; Grade View: Grade IIa; Insertion Attempts: 1; Placement Verification: Auscultation, Capnometry; Airway Comments: Atraumatic. No change to dentition. IIA view with BURP. ; Placed by: DIRECTOR OF FIELD SERVICE; Removal Date: 02/17/25; Removal Time: 1348 02/17/25 0819 by Gordo Pham CRNA 02/17/25 1348 by Gordo Pham CRNA Peripheral IV Placement Date: 01/29 10/24; Placement Time: 0820 (created via procedure documentation); Catheter Size: 16 [...] money to buy more. Never true 12/08/19 Within the past 12 months, t he [...] any time in the [facility], were you homeless or living in a senior living (including now)? No 12/07/2024 CAGE ASSESSMENT Answer [...] drink first t nigel in the morning (EYE-LANDSCAPE PHOTOGRAPHER) to steady your nerves or to get [...] (Past 1 Month) No 02/17/2025 6:00 AM Arlene Carson, RN 6. Suicidal Behavior (Lifetime) No 6:00 [...] and Staff Patient location during procedure: OR DIRECTOR OF FIELD SERVICE: Ankit, Gordo B, DIRECTOR OF FIELD SERVICE Performed: DIRECTOR OF FIELD SERVICE Patient Condition Indications for airway management: anesthesia [...] ROBOT-ASSISTED, USING DA COLE XI (Right) Location: [facility] Surgeons: Talib Serna MD 70yoM with HTN, [...] Last Liquid: 02/17/25 Time of Last Liquid: 0300 (6 oz water) Date of Last Solid: [...] Plan ASA 3 Plan was reviewed with: DIRECTOR OF FIELD SERVICE Anesthesia technique(s) discussed with the patient/family: general Anesthesia plan agreed upon was: general Anesthetic plan and risks discussed with patient. Use of blood products discussed with patient who consented to blood products. Additional Equipment Requests documented in this encounter Plan of Treatment Upcoming Encounters Date Type Department Care Team (Late st Contact Info) Description 04/08/2025 9:10 AM EDT Office Visit [facility] Medicine Specialties [address] [place] [address] Mayi Ballard MBBS [address] [place] [address] 06/17/2025 12:00 PM EDT Appointment [facility] [address], [address] [place] [address] 06/17/2025 1:30 PM EDT Office Visit Medical Office Building Urology [address] [facility], [address] [place] [address] Talib Serna MD [address] [place] [address] documented as of this encounter Goals Goal Patient Goal Type Associated Problems Recent Progress Patient-Stated? Author Autogenerat ed Goal Care Plan Autogenerated Problem No Ray Lidia S documented as of this encounter Procedures Procedure Name Priority Date/Time Associated Diagnosis Comments ANESTHESIA PERIPHERAL IV PLACEMENT Routine 02/17/2025 8:20 AM EDT PB ANESTHESIA PLACEHOLDER Routine 02/17/2025 8:19 AM EDT SC AN ELECTIVE ENDOTRACHEAL AIRWAY Routine 02/17/2025 8:19 [...] MD ANESTHESIA ORDERABLES Final R esult * SC AN ELECTIVE ENDOTRACHEAL AIRWAY, PB ANESTHESIA PLACEHOLDER (02/17/2025 8:19 AM EDT) Narrative Gordo Pham CRNA - 02/17/2025 8:19 AM EDT Gordo Pham CRNA 02/17/2025 9:07 AM Airway Date/Time: 02/17/2025 8:19 AM Reason: elective Airway not difficult General Information and Staff Patient location during procedure: OR DIRECTOR OF FIELD SERVICE: Gordo Pham CRNA Performed: BETZAIDA Patient Condition Indications for airway management: anesthesia [...] documented as of this encounter Care Teams Wireless Store Manager Relationship Specialty Start Date End Date Thiago Gregory APRN [address] [place] [id number] PCP - General 03/20/24 Doug Bill, RN `````````````````````CH - PACU - MAJOR, TOM José Registered Nurse 12/23/24 documented as of this encounter
--- OUTSIDE RECORDS SUMMARY | 2025-02-17 08:15 | XMS_ITS | Encounter Summary ---
Author Organization Healthcare Address [address] [place] [address] Care Team Providers Care Clinical Associate Name Role Phone Thiago Gregory APRN Primary Care Provider [phone] Doug Bill RN Unavailable Unavailable Reason for Visit * Auth/Cert (Routine) Specialty Diagnoses / Procedures Referred By Contac t Referred To Contact Diagnoses Hydronephrosis, right hydronephrosis of right kidney Procedures MS LAP,PYELOPLASTY PYELOPLASTY, ROBOT-ASSISTED, USING DA COLE XI Talib Serna MD [address] [address] Phone: tel: fax: [facility] [address] [place] [address] Phone: tel: Referral ID Status Reason Start Date Expiration Date Visits Re quested Visits Authorized [id number] 1 1 Encounter Details Date Type Department Care Team (Late st Contact Info) Description 02/17/2025 8:15 AM EDT - 02/17/2025 12:40 PM EDT Surgery [facility] [address] [place] [address] Talib Serna MD [address] [address] PYELOPLASTY, ROBOT-ASSISTED, USING DA COLE XI [[id number] (CPT )] Surgery Details Date/Time Status Location OR Service Patient Class Case Class Case Type Trauma Case? 02/17/2025 8:15 AM Posted [facility]-Electiv [facility] Panel 1 Procedure LRB Anes Op Region Wound Class Comments PYELOPLASTY, ROBOT-ASSISTED, USING DA COLE XI Right General Surgeon Surgeon Role Service Panel Corrie Estevez MD Resident - Assisting 1 Talib Serna MD Primary Urology 1 documented in this encounter Social History Tobacco [...] any time in the past 12 m [facility], were you homeless or living in a snf (including now)? No 12/07/2024 CAGE ASSESSMENT Answer [...] drink first t nigel in the morning ([employer]) to steady your nerves or to get rid of a hangover? 0 01/01/2025 CAGE Questionnaire Score 0 025 Utilities Answer Date Recorded In the past 12 months has [facility], gas, oil, or water [employer] threatened to shut off services in your home? No 12/07/2024 Sex and Gender Information Value Date Recorded Sex Assigned at Male 10/03/2024 11:15 AM EST Legal Sex Male 6:18 PM EDT Gender Identity Not on file Sexual Orientation Not on file documented as of this encounter Last Filed Vital Signs Vital Sign Reading Time Taken Comments Blood Pressure 142/80 02/17/2025 5:50 AM EDT Pulse 62 02/17/2025 5:50 AM EDT Temperature 36.7 C (98.1 F) 02/17/2025 5:50 AM EDT Respiratory Rate 16 02/17/2025 5:50 AM EDT Oxygen Saturation 96% 02/17/2025 5:50 AM EDT Inhaled Oxygen Concentration - - Weight [...] 1 Month) No 02/17/2025 6:00 AM Arlene Carson RN 6. Suicidal Behavior (Lifetime) No 6:00 AM Arlene Carson RN documented as of this encounter Discharge [...] confirm your location ahead of your appointment) [facility] Urology Department Clinic at [facility] [address], [facility], [address] [place] [address] Clinic After Hours [facility] Office Building Urology Clinic [address] [place] [address] Clinic After Hours [facility] Multidisciplinary Urology Clinic [address] [facility] 1st [place] [address] Clinic documented in this encounter Medications at [...] within 12 hours or as directed by MD. 5 patch 02/20/2025 5 documented as of this encounter Miscellaneous Notes * Chadwick Tucker RN - 02/20/2025 1:44 PM EDT Images from the original note were not included. [id number] Pyeloplasty The ureters are the two tubes [...] medicines you take. This includes prescription and agmt-qzi-gwisfng medicines, vitamins, herbs, and supplements. You may [...] Risks of anesthesia (the anesthesiologist or nurse plastic hospital products assembler will discuss these with you) Last Reviewed Date: 2022 00:00:00 ?? [id number] [employer]. All rights reserved. This information is not [...] PCP name and Address: Thiago Gregory APRN [address] [place] [address] Referring provider name and address: No referring [...] within 12 hours or as directed by MD. methocarbamol 500 MG tablet Commonly known as: [...] Your Medications These medications were sent to [facility] [place], [place] - [address] [facility] [address] acetaminophen 500 MG tablet lidocaine 5 % [...] confirm your location ahead of your appointment) [facility] Urology Department Clinic at [facility] [address], [address], [address] [place] [address] Clinic After Hours [facility] Office Building Urology Clinic [address] [facility] [address] [place] [address] Clinic After Hours [facility] Multidisciplinary Urology Clinic [address] [place] [address] Clinic Outpatient Follow-Up Future Appointments Date Time Provider Department Center 04/08/2025 9:10 AM Mayi Ballard MBBS [facility] Test Results Pending At Discharge None Pertinent [...] this discharge. Mattie Tejeda MD Msc Urology PGY-1 Cosigned by Zenaida Friend MD at 02/20/2025 [...] Stewart MD - 02/19/2025 8:01 AM EDT [facility] Urology Inpatient Progress Note Primary Attending: [...] Type: Bulb Size (Fr.): 15 Fr. Drain [place] Size (mL): 100 mL Urethral Catheter Non-latex [...] Stewart MD General Surgery Preliminary PGY1 Pager: [phone] Department of Urology Cosigned by Talib Serna [...] Stewart MD - 02/18/2025 7:46 AM EDT [facility] Urology Inpatient Progress Note Primary Attending: [...] Type: Bulb Size (Fr.): 15 Fr. Drain [place] Size (mL): 100 mL Urethral Catheter Non-latex [...] Stewart MD General Surgery Preliminary PGY1 Pager: [phone] Department of Urology Cosigned by Talib Serna [...] Agree with above assessment and evaluation from resident/BUSINESS TECHNOLOGY ANALYST. * Op Note - Talib Serna MD - 02/17/2025 8:59 AM EDT Operative Note Date: 02/17/25 Location: [facility] Name: Parth Pratt, : 1955, Diagnoses: Pre-op Diagnosis Hydronephrosis, right Post-op Diagnosis Hydronephrosis, right Procedure(s): Cystoscopy with right ureteral stent exchange Right diagnostic ureteroscopy Right robot assisted laparoscopic pyeloplasty Attending Surgeon(s): * Bylund, Talib R - Primary Worm Raiser(s): * Corrie Estevez MD - Resident - Assisting Anesthesia: General ASA: III Blood Administration: Blood Product Administration History None Drains: Closed/Suction Drain Superior;Medial Abdomen Bulb 15 Fr. (Active) Site Description Clean;Dry 02/17/25 1515 Dressing Status Old drainage;Intact;Clean 02/17/25 165 Drainage Appearance Bright red 02/17/251654 Status Suction-low intermittent 02/17/25 165 Output (mL) 90 mL 02/17/25 165 Urethral Catheter Non-latex 16 Fr. (Active) Site Assessment Skin intact;Clean 02/17/25 135 CAUTI: Collection Container Standard drainage bag;Collection container below bladder and tubing free of kinks;System closed 02/17/25 135 CAUTI: Securement Method Securing device (Describe) 02/17/25 135 CAUTI: Specimen Collection Port Covered with Alcohol Cap Yes 02/17/251355 CAUTI: Urinary Catheter Necessity Yes, meets criteria 02/17/251355 Output (mL) 200 mL 02/17/251654 Implants Type Name Action Serial No. Stent STENT URETERAL DOUBLE PIGTAIL POS 6FR 22CM - [id number] - [id number] Implanted [id number] Specimen: Specimens ID Source Frozen? 1 Other [...] stent was then removed and a 5 Malaysian ureteral catheter was placed over the wire. Sung catheter was placed into the bladder alongside it. Veress needle was used to access the peritoneum in the right upper quadrant. After appropriate water test, the abdomen was insufflated. Four robot trocars were placed roughly along the midclavicular line. 5 mm orthopedic physician assistant port was placed below the umbilicus. There was some insufflation the retroperitoneum noted. Monopolar scissors were used to reflect the colon medially after the robot was docked. We identified the ureter and mobilized it up toward the kidney. Gonadal vessels were swept medially. There was significant inflammation around the proximal ureter and ureteropelvic junction. The Sung catheter and 5 Malaysian ureteral catheter were removed and flexible ureteral scope was advanced into the bladder and then into the right ureter. We identified the segment of ureter that appeared unhealthy ureteroscopically and noted the location. The ureter was then transversely divided at the appropriate level and spatulated laterally. We then mobilized the renal pelvis and opened it medially to guide our excision. Withsome difficulty, we were able to excise the ureteropelvic junction and surrounding inflammatory tissue. In order to have our anastomosis at the most dependent portion, we closed the lateral aspect ofthe open renal pelvis. We then began interrupted anastomosis with 4-0 Vicryl. We did some additional mobilization of the kidney, renal pelvis, and ureter to allow the anastomosis to be completed without tension. We placed a wire up through the ureteral scope and the scope was withdrawn. A 6 Malaysian by 22 cm double-J ureteral stent was then passed over the wire and positioned within the right renalpelvis. Good distal curl was confirmed with the cystoscope. The Sung catheter was replaced. We completed the interrupted anastomosis with good tissue approximation. Vistaseal was applied. A 15 Malaysian drain was placed through the lowest trocar [...] Results Contains abnormal data Urine Culture Order: [id number] - Reflex for Order [id number] Collected 01/01/2025 08:03 Status: Final result Test Result Released: Yes (not seen) Specimen Information: Urine, Clean Catch 0 Result Notes Culture 10,000 - 100,000 CFU/mL Lucie albicans Abnormal This result was determined by MALDI tof Mass spectrometry. This assay was developed and its performance characteristics determined by [facility] as appropriate for clinical purposes. [...] History: Procedure Laterality Date COLONOSCOPY CYSTOSCOPY 12/15/2024 ([facility]) cystosopy, ANTEGRADE URETEROSCOPY, right nephrostomy tube exchange (Ureter) URETEROSCOPY (Right) INSERTION OR REPLACEMENT, NEPHROSTOMY TUBE (Right) HIP ARTHROPLASTY Bilateral HIP SURGERY Right to replace recalled loli device KIDNEY STONE SURGERY LIVER BIOPSY NEPHROSTOMY 12/04/2024 ([facility]) INSERTION OR REPLACEMENT, NEPHROSTOMY TUBE (Right) PROSTATE BIOPSY SHOULDER SURGERY Left cadaver tendon placed in shoulder TONSILLECTOMY UPPER GASTROINTESTINAL ENDOSCOPY URETEROSCOPY 11/30/2024 ([facility]) URETEROSCOPY, RIGHT RETROGRADE (Right) CYSTOSCOPY (Bladder) [...] card, photo ID, along with power of deputy county attorney, guardianship or advanced directives if applicable Do not bring money, jewelry or other valuables Hibiclens bathing instructions reviewed if applicable Notify surgeon of fever, illness, any changes or if you decide not to have surgery documented in this encounter Plan of Treatment Upcoming Encounters Date Type Department Care Team (Late st Contact Info) Description 04/08/2025 9:10 AM EDT Office Visit [facility] Medicine Specialties [address], [address] [place] [address] Mayi Ballard MBBS [address] [place] [address] 06/17/2025 12:00 PM EDT Appointment [facility] [address] [place] [address] 06/17/2025 1:30 PM EDT Office Visit Medical Office Building Urology [address], [address] [place] [address] Talib Serna MD [address] [place] [address] documented as of this encounter Goals Goal Patient Goal Type Associated Problems Recent Progress Patient-Stated? Author Autogenerat ed Goal Care Plan Autogenerated Problem No Lidia Bell documented as of this encounter Procedures Procedure [...] Routine 02/17/2025 9:00 AM EDT Hydronephrosis, right MS LAP,PYELOPLASTY 02/17/2025 8: 05 AM EDT Hydronephrosis, [...] Juanis Winchester DO on 02/20/2025 11:29 AM us Talib Serna MD IMG XR PROCEDURES Final [...] following split bolus administration of IV contrast, [id number], 150 mL. Reformatted images in the coronal [...] - 99 mg/dL 02/20/2025 4:54 AM EDT [facility] BUN, Plasma 13 8 - 23 mg/dL 02/20/2025 4:54 AM EDT [facility] Creatinine, Plasma 0.61(L) 0.70 - 1.20 mg/dL 02/20/2025 4:54 AM EDT [facility] BUN/Creatinine Ratio 21 02/20/2025 4:54 AM EDT [facility] Sodium, Plasma 137 136 - 145 mmol/L 02/20/2025 4:54 AM EDT [facility] Potassium, Plasma 3.9 3.6 - 4.9 mmol/L 02/20/2025 4:54 AM EDT [facility] Chloride, Plasma 101 97 - 107 mmol/L 02/20/2025 4:54 AM EDT [facility] CO2, Plasma 23 22 - 29 mmol/L 02/20/2025 4:54 AM EDT [facility] Anion Gap 13 6 - 16 mmol/L 02/20/2025 4:54 AM EDT [facility] Total Calcium, Plasma 9.2 8.9 - 10.2 mg/dL 02/20/2025 4:54 AM EDT [facility] eGFRcr 102.7 mL/min/1.7 3m*2 02/20/2025 4:54 AM EDT [facility] Comment:Reported eGFRcr in m L/min/1.73m2 is based the CKD-EPI 2020 equation that does not use a race coefficient. Blood Venous blood specimen / Unknown Venipuncture / Unknown 02/20/2025 4:13 AM EDT 02/20/2025 4:23 AM EDT Talib Serna MD LAB BLOOD ORDERABLES Final Res ult [facility] [address] [place] [id number] * (ABNORMAL) Hemogram (CBC) (02/20/2025 4:13 AM EDT) WBC Count 15.39(H) 3.70 - 10.30 10*3/uL LAB HEMATOLOGY METHOD 02/20/2025 4:41 AM EDT [facility] RBC Count 4.51(L) 4.60 - 6.10 10*6/uL LAB HEMATOLOGY METHOD 02/20/2025 4:41 AM EDT [facility] HGB 14.0 13.7 - 17.5 g/dL LAB HEMATOLOGY METHOD 02/20/2025 4:41 AM EDT [facility] HCT 41.4 40.0 - 51.0 % LAB HEMATOLOGY METHOD 02/20/2025 4:41 AM EDT [facility] Platelet Count 202 155 - 369 10*3/uL LAB HEMATOLOGY METHOD 02/20/2025 4:41 AM EDT [facility] MCV 92 79 - 98 fL LAB HEMATOLOGY METHOD 02/20/2025 4:41 AM EDT [facility] MCH 31.0 26.0 - 32.0 pg LAB HEMATOLOGY METHOD 02/20/2025 4:41 AM EDT [facility] MCHC 33.8 30.7 - 35.5 g/dL LAB HEMATOLOGY METHOD 02/20/2025 4:41 AM EDT [facility] RDW 13.5 11.5 - 14.5 % LAB HEMATOLOGY METHOD 02/20/2025 4:41 AM EDT [facility] MPV 10.4 8.8 - 12.5 fL LAB HEMATOLOGY METHOD 02/20/2025 4:41 AM EDT [facility] nRBC 0.0 <=0.0 per 100 WBCs LAB HEMATOLOGY METHOD 02/20/2025 4:41 AM EDT [facility] Blood Venous blood specimen / Unknown Venipuncture / Unknown 02/20/2025 4:13 AM EDT 02/20/2025 4:26 AM EDT us Talib Serna MD LAB BLOOD ORDERABLES Final Res ult [facility] [address] [place] [address] * (ABNORMAL) Basic metabolic panel (02/19/2025 4:38 AM EDT) Glucose, Plasma 105(H) 74 - 99 mg/dL 02/19/2025 5:20 AM EDT [facility] BUN, Plasma 8 8 - 23 mg/dL 02/19/2025 5:20 AM EDT [facility] Creatinine, Plasma 0.55(L) 0.70 - 1.20 mg/dL 02/19/2025 5:20 AM EDT [facility] BUN/Creatinine Ratio 15 02/19/2025 5:20 AM EDT [facility] Sodium, Plasma 135(L) 136 - 145 mmol/L 02/19/2025 5:20 AM EDT [facility] Potassium, Plasma 3.7 3.6 - 4.9 mmol/L 02/19/2025 5:20 AM EDT [facility] Chloride, Plasma 101 97 - 107 mmol/L 02/19/2025 5:20 AM EDT [facility] CO2, Plasma 24 22 - 29 mmol/L 02/19/2025 5:20 AM EDT [facility] Anion Gap 10 6 - 16 mmol/L 02/19/2025 5:20 AM EDT [facility] Total Calcium, Plasma 9.0 8.9 - 10.2 mg/dL 02/19/2025 5:20 AM EDT [facility] eGFRcr 106.0 mL/min/1.7 3m*2 02/19/2025 5:20 AM EDT [facility] Comment:Reported eGFRcr in m L/min/1.73m2 is based the CKD-EPI 2020 equation that does not use a race coefficient. Blood Venous blood specimen / Unknown Venipuncture / Unknown 02/19/2025 4:38 AM EDT 02/19/2025 4:48 AM EDT us Talib Serna MD LAB BLOOD ORDERABLES Final Res ult [facility] [address] [place] [address] * (ABNORMAL) Hemogram (CBC) (02/19/2025 4:38 AM EDT) WBC Count 13.20(H) 3.70 - 10.30 10*3/uL LAB HEMATOLOGY METHOD 02/19/2025 5:04 AM EDT [facility] RBC Count 4.36(L) 4.60 - 6.10 10*6/uL LAB HEMATOLOGY METHOD 02/19/2025 5:04 AM EDT [facility] HGB 13.7 13.7 - 17.5 g/dL LAB HEMATOLOGY METHOD 02/19/2025 5:04 AM EDT [facility] HCT 39.5(L) 40.0 - 51.0 % LAB HEMATOLOGY METHOD 02/19/2025 5:04 AM EDT [facility] Platelet Count 157 155 - 369 10*3/uL LAB HEMATOLOGY METHOD 02/19/2025 5:04 AM EDT [facility] MCV 91 79 - 98 fL LAB HEMATOLOGY METHOD 02/19/2025 5:04 AM EDT [facility] MCH 31.4 26.0 - 32.0 pg LAB HEMATOLOGY METHOD 02/19/2025 5:04 AM EDT [facility] MCHC 34.7 30.7 - 35.5 g/dL LAB HEMATOLOGY METHOD 02/19/2025 5:04 AM EDT [facility] RDW 13.5 11.5 - 14.5 % LAB HEMATOLOGY METHOD 02/19/2025 5:04 AM EDT [facility] MPV 10.4 8.8 - 12.5 fL LAB HEMATOLOGY METHOD 02/19/2025 5:04 AM EDT [facility] nRBC 0.0 <=0.0 per 100 WBCs LAB HEMATOLOGY METHOD 02/19/2025 5:04 AM EDT [facility] Blood Venous blood specimen / Unknown Venipuncture / Unknown 02/19/2025 4:38 AM EDT 02/19/2025 4:49 AM EDT us Talib Serna MD LAB BLOOD ORDERABLES Final Res ult [facility] [address] [place] [address] * (ABNORMAL) Basic metabolic panel (02/18/2025 4:18 AM EDT) Glucose, Plasma 105(H) 74 - 99 mg/dL 02/18/2025 5:01 AM EDT [facility] BUN, Plasma 13 8 - 23 mg/dL 02/18/2025 5:01 AM EDT [facility] Creatinine, Plasma 0.60(L) 0.70 - 1.20 mg/dL 02/18/2025 5:01 AM EDT [facility] BUN/Creatinine Ratio 02/18/2025 5:01 AM EDT [facility] Sodium, Plasma 138 136 - 145 mmol/L 02/18/2025 5:01 AM EDT [facility] Potassium, Plasma 4.2 3.6 - 4.9 mmol/L 02/18/2025 5:01 AM EDT [facility] Chloride, Plasma 104 97 - 107 mmol/L 02/18/2025 5:01 AM EDT [facility] CO2, Plasma 22 22 - 29 mmol/L 02/18/2025 5:01 AM EDT [facility] Anion Gap 12 6 - 16 mmol/L 02/18/2025 5:01 AM EDT [facility] Total Calcium, Plasma 8.8(L) 8.9 - 10.2 mg/dL 02/18/2025 5:01 AM EDT [facility] eGFRcr 103.2 mL/min/1.7 3m*2 02/18/2025 5:01 AM EDT [facility] Comment:Reported eGFRcr in m L/min/1.73m2 is based the CKD-EPI 2020 equation that does not use a race coefficient. Blood Venous blood specimen / Unknown Venipuncture / Unknown 02/18/2025 4:18 AM EDT 02/18/2025 4:31 AM EDT us Talib Serna MD LAB BLOOD ORDERABLES Final Res ult [facility] [address] [place] [address] * (ABNORMAL) Hemogram (CBC) (02/18/2025 4:18 AM EDT) WBC Count 14.14(H) 3.70 - 10.30 10*3/uL LAB HEMATOLOGY METHOD 02/18/2025 4:38 AM EDT [facility] RBC Count 4.26(L) 4.60 - 6.10 10*6/uL LAB HEMATOLOGY METHOD 02/18/2025 4:38 AM EDT [facility] HGB 13.2(L) 13.7 - 17.5 g/dL LAB HEMATOLOGY METHOD 02/18/2025 4:38 AM EDT [facility] HCT 39.7(L) 40.0 - 51.0 % LAB HEMATOLOGY METHOD 02/18/2025 4:38 AM EDT [facility] Platelet Count 191 155 - 369 10*3/uL LAB HEMATOLOGY METHOD 02/18/2025 4:38 AM EDT [facility] MCV 93 79 - 98 fL LAB HEMATOLOGY METHOD 02/18/2025 4:38 AM EDT [facility] MCH 31.0 26.0 - 32.0 pg LAB HEMATOLOGY METHOD 02/18/2025 4:38 AM EDT [facility] MCHC 33.2 30.7 - 35.5 g/dL LAB HEMATOLOGY METHOD 02/18/2025 4:38 AM EDT [facility] RDW 13.5 11.5 - 14.5 % LAB HEMATOLOGY METHOD 02/18/2025 4:38 AM EDT [facility] MPV 10.2 8.8 - 12.5 fL LAB HEMATOLOGY METHOD 02/18/2025 4:38 AM EDT [facility] nRBC 0.0 <=0.0 per 100 WBCs LAB HEMATOLOGY METHOD 02/18/2025 4:38 AM EDT [facility] Blood Venous blood specimen / Unknown Venipuncture / Unknown 02/18/2025 4:18 AM EDT 02/18/2025 4:30 AM EDT us Talib Serna MD LAB BLOOD ORDERABLES Final Res ult [facility] [address] [place] [address] * (ABNORMAL) Basic metabolic panel (02/17/2025 4:37 PM EDT) Glucose, Plasma 142(H) 74 - 99 mg/dL 02/17/2025 5:37 PM EDT [facility] BUN, Plasma 14 8 - 23 mg/dL 02/17/2025 5:37 PM EDT [facility] Creatinine, Plasma 0.67(L) 0.70 - 1.20 mg/dL 02/17/2025 5:37 PM EDT [facility] BUN/Creatinine Ratio 02/17/2025 5:37 PM EDT [facility] Sodium, Plasma 139 136 - 145 mmol/L 02/17/2025 5:37 PM EDT [facility] Potassium, Plasma 4.4 3.6 - 4.9 mmol/L 02/17/2025 5:37 PM EDT [facility] Chloride, Plasma 104 97 - 107 mmol/L 02/17/2025 5:37 PM EDT [facility] CO2, Plasma 20(L) 22 - 29 mmol/L 02/17/2025 5:37 PM EDT [facility] Anion Gap 15 6 - 16 mmol/L 02/17/2025 5:37 PM EDT [facility] Total Calcium, Plasma 8.8(L) 8.9 - 10.2 mg/dL 02/17/2025 5:37 PM EDT [facility] eGFRcr 99.8 mL/min/1.7 3m*2 02/17/2025 5:37 PM EDT [facility] Comment:Reported eGFRcr in m L/min/1.73m2 is based the CKD-EPI 2020 equation that does not use a race coefficient. Blood Venous blood specimen / Unknown Venipuncture / Unknown 02/17/2025 4:37 PM EDT 02/17/2025 5:04 PM EDT Talib Serna MD LAB BLOOD ORDERABLES Final Res ult [facility] [address] [place] [address] * (ABNORMAL) CBC W/O Differential (02/17/2025 4:37 PM EDT) WBC Count 11.01(H) 3.70 - 10.30 10*3/uL LAB HEMATOLOGY METHOD 02/17/2025 5:26 PM EDT [facility] RBC Count 4.65 4.60 - 6.10 10*6/uL LAB HEMATOLOGY METHOD 02/17/2025 5:26 PM EDT [facility] HGB 14.5 13.7 - 17.5 g/dL LAB HEMATOLOGY METHOD 02/17/2025 5:26 PM EDT [facility] HCT 43.2 40.0 - 51.0 % LAB HEMATOLOGY METHOD 02/17/2025 5:26 PM EDT [facility] Platelet Count 169 155 - 369 10*3/uL LAB HEMATOLOGY METHOD 02/17/2025 5:26 PM EDT [facility] MCV 93 79 - 98 fL LAB HEMATOLOGY METHOD 02/17/2025 5:26 PM EDT [facility] MCH 31.2 26.0 - 32.0 pg LAB HEMATOLOGY METHOD 02/17/2025 5:26 PM EDT [facility] MCHC 33.6 30.7 - 35.5 g/dL LAB HEMATOLOGY METHOD 02/17/2025 5:26 PM EDT [facility] RDW 13.6 11.5 - 14.5 % LAB HEMATOLOGY METHOD 02/17/2025 5:26 PM EDT [facility] MPV 10.4 8.8 - 12.5 fL LAB HEMATOLOGY METHOD 02/17/2025 5:26 PM EDT [facility] nRBC 0.0 <=0.0 per 100 WBCs LAB HEMATOLOGY METHOD 02/17/2025 5:26 PM EDT [facility] Blood Venous blood specimen / Unknown Venipuncture / Unknown 02/17/2025 4:37 PM EDT 02/17/2025 5:10 PM EDT us Talib Serna MD LAB BLOOD ORDERABLES Final Res ult Performing Organization Address City/[facility]/ZIP Co de Phone Number [facility] [address] [place] [address] * Surgical Pathology Exam (02/17/2025 1:42 PM EDT) Case Report Surgical Pathology Case: [id number] Authorizing Provider: Talib Serna MD Collected: 02/17/2025 1342 Ordering Location: [facility] A OPERATING ROOM Received: 02/17/2025 1427 Pathologist: Lesia Cole MD Specimen: Other (specify site), right proximal ureter 02/19/2025 11:07 AM EDT [facility] Final Diagnosis A. 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 02/19/2025 11:07 AM EDT [facility] at 1107 EDT Clinical Information hydronephrosis of right kidney 02/19/2025 11:07 AM EDT [facility] Gross Description A. RIGHT PROXIMAL URETER Received in formalin labeled right proximal ureter are multiple pieces of pink-desir rubbery tissue roughened with cauterization measuring 2.3 x 2.0 x 0.7 cm in aggregate. Entirely submitted in cassette A1. Cold Time: <1m Iveth Ramírez 02/19/2025 11:07 AM EDT [facility] Note: A resident was involved in the service. I attest I examined the relevant preparations for the specimens and confirmed the diagnosis or interpretation. 02/19/2025 11:07 AM EDT [facility] Tissue Topography unknown / Unknown 02/17/2025 1:42 PM EDT 02/17/2025 2:27 PM EDT Comment:Pre-op diagnosis: hydronephrosis of right kidney us Talib Serna MD LAB PATHOLOGY ORDERABLES Final Result Performing Organization Address City/[facility]/ZIP Co de Phone Number [facility] [address] [place] [address] * (ABNORMAL) Urine Culture (02/17/2025 9:00 AM EDT) Culture 1,000 - 10,000 CFU/mL Lucie albicans(A) 02/19/2025 1:01 PM EDT [facility] Comment: This result was determined by MALDI tof Mass spectrometry. This assay was developed and its performance characteristics determined by [facility] as appropriate for clinical purposes. [...] ORD ERABLES Final Result Performing Organization Address City/[facility]/ZIP Co de Phone Number [facility] [address] [place] [address] * Type and Screen (02/17/2025 6:48 AM EDT) ABO/Rh O Positive 02/17/2025 6:30 AM EDT BLOOD BANK Antibody Screen Negative 02/17/2025 6:30 AM EDT [facility]LO[facility] Specimen Expiration 02/20/2025 23:59 02/17/2025 6:30 AM EDT BLOOD BANK Blood Venous blood specimen / Unknown Venipuncture / Unknown 02/17/2025 6:48 AM EDT 02/17/2025 6:53 AM EDT Talib Serna MD LAB BLOOD BANK TEST ORDERABLES Final Result Performing Organization Address City/[facility]/ZIP Co de Phone Number BLOOD BANK [address] [place] [address], documented in this encounter Visit Diagnoses Diagnosis Ureteropelvic junction (UPJ) obstruction, right- Primary Hydronephrosis, right Hydronephrosis Hydronephrosis, right Hydronephrosis documented in this encounter Admitting Diagnoses Diagnosis [...] Given 02/19/2025 9:36 PM EDT 10 mg bupivacaine PF (Marcaine) 0.5 % injection As needed, Starting on Sat02/17/25 at 1300, Until Sat02/17/25 at 1422, Routine, Intraprocedure Given 02/17/2025 1:00 PM EDT 20 mL Abdominal Tissue docusate sodium (Colace) capsule 100 mg 100 [...] RN) 0836 (Given - Provider: Jose Alcaraz, RN) 0803 (Given - Provider: Chani Schwab [...] David RN)1758 (Given - Provider: Abbey Ji LPN)213 (Given - Provider: Chani Schwab RN) 0836 [...] RN) 0836 (Given - Provider: Jose Alcaraz RN)213 (Given - Provider: Chani Schwab RN) 0803 (Given - Provider: Chani Schwab RN) senna (Senokot) tablet 17.2 mg 17.2 mg (2 tablet), Oral, 2 times daily, First dose on Sat02/17/25 at 2100, Until Discontinued, Routine, Recovery(Phase II-Outpatient)/On Unit(Inpatient) 0839 (Given - Provider: David David RN)213 (Given - Provider: Chani Schwab RN) 0836 (Given - Provider: Jose Alcaraz RN)213 (Given [...] documented as of this encounter Care Teams Clinical Associate Relationship Specialty Start Date End Date Thiago Gregory APRN [address] [place] [address] PCP - General 03/20/24 Doug Bill, RN `````````````````````CH - PACU - MAJOR, PAV A Registered Nurse 12/23/24 documented as of this encounter
--- OUTSIDE RECORDS SUMMARY | 2025-03-16 09:15 | XMS_ITS | Encounter Summary ---
Author Organization Healthcare Address [address] [place] [address] Care Team Providers Care Core Analysis Operator Name Role Phone Thiago Gregory APRN Primary Care Provider [phone] Doug Bill RN Unavailable Unavailable Reason for Referral * Imaging (Routine) - Pending Review Specialty Diagnoses / Procedures Referred By Contac t Referred To Contact Radiology Diagnoses Hydronephrosis of right kidney Procedures CT Urogram Talib Serna MD [address] [address] Phone: tel: fax: Referral ID Status Reason Start Date Expiration Date V isits Requested Visits Authorized [id number] Pending Review 03/16/2025 09/15/2026 1 1 Reason for Visit * Reason Comments Cystoscope Stent Removal Encounter Details Date Type Department Care Team (Latest Contact Info) Description 03/16/2025 9:15 AM EDT Office Visit Medical Office Building Urology [facility], [address] [place] [address] Talib Serna MD [address] [address] Hydronephrosis of right kidney (Primary Dx) [...] any time in the past [address] [facility], were you homeless or living in a long term (including now)? No 12/07/2024 AUDIT-C Answer Date [...] drink first t nigel in the morning (EYE-RADIOLOGIC ELECTRONIC SPECIALIST) to steady your nerves or to get rid of a hangover? 0 01/01/2025 CAGE Questionnaire Score 0 025 Utilities Answer Date Recorded In the past 12 months has e [employer], gas, oil, or water [employer] threatened to shut off services in your [...] on one occasion? Never 03/16/2025 9:41 AM KAYLANT Renetta Mann * Over the past 2 weeks, how often have you been bothered by any of the following problems? Question Answer Date of Assessment Author Little interest or pleasure in doing things Not at all 03/16/2025 9:45 AM Renetta Hernández Feeling down, depressed, or hopeless Not at all 03/16/2025 9:45 AM KAYLANT Renetta Mann Patient Health Questionnaire -2 Score 0 03/16/2025 9:45 AM EDRenetta Mullins documented as of this encounter Miscellaneous Notes [...] History: Procedure Laterality Date COLONOSCOPY CYSTOSCOPY 12/15/2024 ([facility]) cystosopy, ANTEGRADE URETEROSCOPY, right nephrostomy tube exchange (Ureter) URETEROSCOPY (Right) INSERTION OR REPLACEMENT, NEPHROSTOMY TUBE (Right) HIP ARTHROPLASTY Bilateral HIP SURGERY Right to replace recalled loli device KIDNEY STONE SURGERY LIVER BIOPSY NEPHROSTOMY 12/04/2024 ([facility]) INSERTION OR REPLACEMENT, NEPHROSTOMY TUBE (Right) PROSTATE BIOPSY SHOULDER SURGERY Left cadaver tendon placed in shoulder TONSILLECTOMY UPPER GASTROINTESTINAL ENDOSCOPY URETEROSCOPY 11/30/2024 ([facility]) URETEROSCOPY, RIGHT RETROGRADE (Right) CYSTOSCOPY (Bladder) [3] [...] Relation Name Age of Onset Hyperthyroidism Sister Damaso Hyperthermia Neg Hx documented in this encounter Plan of Treatment Upcoming Encounters Date Type Department Care Team ([facility] Contact Info) Description 04/08/2025 9:10 AM EDT Office Visit [place] [facility] [address] [place] [address] Mayi Ballard MBBS [address] [place] [address] 06/17/2025 12:00 PM EDT Appointment [facility] [address], [address] [place] [address] 06/17/2025 1:30 PM EDT Office Visit Medical Office Building Urology [facility], [address] [place] [address] Talib Serna MD [address] [place] [address] Scheduled Orders Name Type Priority Associated Diagnoses Orde r Schedule CT Urogram Imaging Routine Hydronephrosis of right kidney Expected: 06/16/2025 (Approximate), Expires: 09/17/2026 documented as of this encounter Goals Goal Patient Goal Type Associated Problems Recent Progress Patient-Stated? Author Autogenerat ed Goal Care Plan Autogenerated Problem No Lidia Bell documented as of this encounter Procedures Procedure Name Priority Date/Time Associated Diagnosis Comments URO CYSTO SUPPLIES Routine 03/16/2025 9: 15 AM EDT Hydronephrosis of right kidney [place] CYSTOSCOPY,REMV CALCULUS,SIMPLE Routine 03/16/2025 9:15 AM EDT Hydronephrosis of right kidney documented in this encounter Results * [place] CYSTOSCOPY,REMV CALCULUS,SIMPLE, URO CYSTO SUPPLIES (03/16/2025 9:15 [...] Diagnosis Hydronephrosis of right kidney- Primary Hydronephrosis documented in this encounter Additional Health Concerns Active Problems Noted Date Diagnosed Date Autogenerated Problem 02/18/2025 Assessment Noted Time A fall risk assessment has been complete d for the patient 03/16/2025 9:45 AM EDT A Body Mass Index follow-up plan has been documented for the patient 03/16/2025 3:02 PM EDT documented as of this encounter Care Teams Core Analysis Operator Relationship Specialty Start Date End Date Thiago Gregory APRN [address] [place] [address] OMERO Luna [id number] PCP - General 03/20/24 Doug Bill, RN `````````````````````CH - PACU - MAJOR, PAV A Registered Nurse 12/23/24 documented as of this encounter
[2025-03-17 12:07] VITALS: BP 169/103; PULSE 91; RESP 18; TEMP 36.9; O2SAT 98; BMI 21.5
--- OUTSIDE RECORDS SUMMARY | 2025-03-17 12:07 | XMS_ITS | Encounter Summary ---
Author Organization Healthcare Address [address] [place] [address] Care Team Providers Care Swing Frame Grinder Operator Name Role Phone Thiago Gregory APRN Primary Care Provider [phone] Doug Bill RN Unavailable Unavailable Encounter Details Date Type Department Care Team (Latest Contact Info) Description 02/20/2025 Travel Social History Tobacco Use Types Packs/Day Years [...] any time in the past 12 m [facility], were you homeless or living in a penitentiary (including now)? No 12/07/2024 CAGE ASSESSMENT Answer [...] drink first t nigel in the morning (EYE-DIRECTOR OF RESEARCH AND DEVELOPMENT) to steady your nerves or to get [...] on file documented as of this encounter Plan of Treatment Upcoming Encounters Date Type Department Care Team (Late st Contact Info) Description 04/08/2025 9:10 AM EDT Office Visit [place] [facility] [address] [place] [address] Mayi Ballard MBBS [address] [place], [place] [phone] 06/17/2025 12:00 PM EDT Appointment [facility] [address] [place] [address] 06/17/2025 1:30 PM EDT Office Visit Medical Office Building Urology [address] [facility], [address] [place] [address] Talib Serna MD [address] [place] [address] documented as of this encounter Goals Goal Patient Goal Type Associated Problems Recent Progress Patient-Stated? Author Autogenerat ed Goal Care Plan Autogenerated Problem No Lidia Bell documented as of this encounter Visit Diagnoses Not on filedocumented in this encounter Additional Health Concerns Active Problems Noted Date Diagnosed Date Autogenerated Problem 02/18/2025 Assessment Noted Time A fall risk assessment has been complete d for the patient 12/31/2024 3:03 PM EDT A Body Mass Index follow-up plan has been documented for the patient 02/20/2025 1:45 PM EDT documented as of this encounter Care Teams Swing Frame Grinder Operator Relationship Specialty Start Date End Date Thiago Gregory APRN [address] [place] [address] PCP - General 03/20/24 Doug Bill, RN `````````````````````CH - PACU - MAJOR, PAV A Registered Nurse 12/23/24 documented as of this encounter
--- OUTSIDE RECORDS SUMMARY | 2025-03-17 12:07 | XMS_ITS | Encounter Summary ---
Author Organization Healthcare Address [address] [place] [address] Care Team Providers Care Senior Net Programmer Name Role Phone Thiago Gregory APRN Primary Care Provider +1 [phone] Doug Bill RN Unavailable Unavailable Encounter Details Date Type Department Care Team (Latest Contact Info) Description 02/17/2025 Travel Social History Tobacco Use Types Packs/Day [...] any time in the past 12 m [facility], were you homeless or living in a fdc (including now)? No 12/07/2024 CAGE ASSESSMENT Answer [...] drink first t nigel in the morning (EYE-NARROW GAUGE BRAKEMAN) to steady your nerves or to get rid of a hangover? 0 01/01/2025 CAGE Questionnaire Score 0 025 Utilities Answer Date Recorded In the past 12 months has th e [employer], gas, oil, or water company threatened to [...] Month) No 025 6:00 AM EDT Arlene Sands, RN 2. Non-Specific Active Suici sena Thoughts (Past 1 Month) No 02/17/2025 6:00 AM EDT Arlene Sands, FARTUN 6. Suicidal Behavior (Lifetime) No 6:00 AM EDT Arlene Sands, RN documented as of this encounter Plan of Treatment Upcoming Encounters Date Type Department Care Team (Late st Contact Info) Description 04/08/2025 9:10 AM EDT Office Visit [facility] [address], [address] [place] [address] Mayi Ballard MBBS [address] [place] [address] 06/17/2025 12:00 PM EDT Appointment [facility] [address], [address]nd [place] [address] 06/17/2025 1:30 PM EDT Office Visit Medical Office Building Urology [address] [facility], [address] [place] [address] Talib Serna MD [address] [place] [address] documented as of this encounter [...] documented as of this encounter Care Teams Senior Net Programmer Relationship Specialty Start Date End Date Thiago Gregory APRN [address] [place] [address] PCP - General 03/20/24 Doug Bill, RN `````````````````````CH - PACU - MAJOR, PAV A Registered Nurse 12/23/24 documented as of this encounter
--- OUTSIDE RECORDS SUMMARY | 2025-03-17 12:07 | XMS_ITS | Encounter Summary ---
Author Organization Healthcare Address [address] [place] [address] Care Team Providers Care Vegetable Specker Name Role Phone Thiago Gregory APRN Primary Care Provider +1 [phone] Doug Bill RN Unavailable Unavailable Reason for Visit * Reason Onset Date Comments HCN Clinical Concern/Question 03/02/2025 Encounter Details Date Type Department Care Team (Late st Contact Info) Description 03/02/2025 Telephone [place] [facility] [address], [address] [place] [address] Talib Serna MD [address] [place] [address] HCN Clinical Concern/Question Social History Tobacco Use Types Packs/Day Years [...] any time in the past [address] [facility], were you homeless or living in a prison (including now)? No 12/07/2024 CAGE ASSESSMENT Answer [...] drink first t nigel in the morning (EYE-POULTRY CLEANER) to steady your nerves or to get [...] on file documented as of this encounter Miscellaneous Notes * Telephone Encounter - Silva Isaacs - 03/02/2025 10:59 AM EDT Clinical Concern/Question Reason for Call: pt has appt 03/[address] serna for stent removal/cysto... that is the only day that will not work for him . He needs to rs to another day that week or thenext week... whatever is appropriate please/ Best contact number: [phone] (mobile) Optimal time of day to reach caller: ANYTIME Additional comments/information from caller: None Note: Please do not reply to this message. Follow-up communication and further actions as a result of this message need to be communicated with the patient directly, if the patient is not active onMyChart. If the patient is active on MyChart, they will receive notification of the communication/outcome via [employer]. documented in this encounter Plan of Treatment Upcoming Encounters Date Type Department Care Team (Late st Contact Info) Description 04/08/2025 9:10 AM EDT Office Visit [place] [facility] [address], [address] [place] [address] Mayi Ballard MBBS [address] [place] [address] 06/17/2025 12:00 PM EDT Appointment [facility] [address], [address]nd [place] [address] 06/17/2025 1:30 PM EDT Office Visit Medical Office Building Urology [address] [facility], [address] [place] [address] Talib Serna MD [address] [place] [address] documented as of this encounter [...] documented as of this encounter Care Teams Vegetable Specker Relationship Specialty Start Date End Date Thiago Gregory APRN [address] [place] [address] PCP - General 03/20/24 Doug Bill RN `````````````````````CH - PACU - MAJOR, PAV A Registered Nurse 12/23/24 documented as of this encounter
--- OUTSIDE RECORDS SUMMARY | 2025-03-17 12:07 | XMS_ITS | Data Portability ---
Author Organization [facility] JAIM[facility] [place] Address [address] [place] [address] Care Team Providers Care Software Specialist Name Role Phone ESTEVAN KELLY Referring Provider Unavailable Assessment No assessment recorded. Plan of Treatment Reminders Order Date Submit Date Provider Last Modified By Organization Details Last Modified Time Details Appointments None recorded . Lab PSA, total + free, serum or plasma 024 01/08/20 24 [email or web address] [facility] ([facility] [address] [place] [address] [address], [place], [address], 4 07:47:32 PSA, serum or plasma 023 06/14/20 23 Not available 3 07:08:59 Referral None recorded [...] Organization Details Recorded Time Chronic hepatitis C 311074236 Active 2022 OMERO Tyler [facility] & [place] 3 13:11:51 Hypertensive disorder 89974312 Active 2022 OMERO Tyler [facility] [place] 3 13:13:13 Problem Notes None recorded. Procedures Surgical History Date Name Laterality Status Provider Name and Address Organization Details Recorded Time replacement of bilateral hip joints completed Elvis JAIMES [facility] [place] 06/14/2023 13:12:54 [facility] [place] 06/14/2023 13:13:58 Imaging Results None recorded. Procedure Notes None recorded. Medical Equipment None Reported. Allergies Allergen ID Allergen Name Allergen Category Reaction Reaction Severity Criticality Documentation Date Start Date Code Code System Note Provider Name and Address Organization Details Recorded Time 33209 prochlorp erazine medicatio n Not available Not available Not available 06/14/2023 8704 RxNorm Elvis tello, OMERO Adams [facility] & [place] 13:11:26 Medications Name Sig Start Date Stop [...] Updated DateTime 01/08/2024 175.26 cm 25.1 kg/m2 11558.7 g 97.5 [degF] [facility] [place] 01/08/2024 13:50:45 Date Recorded Body height Body mass index (BMI) Body weight Body temperature Provider Name and Address Organization Details Last Updated DateTime 04/08/2024 175.26 cm 25.1 kg/m2 25083.7 g 98 [degF] Analisa Adams [facility] [place] 04/08/2024 13:41:34 Social History None recorded. Functional Status Question Answer Note LastModified by Organizat ion Details LastModified Time What is your level of alcohol consumption? Occasional [email or web address] Information not available 06/14/2023 Mental Status None recorded. Family History Nothing Reported. Medical History No medical history recorded. Past Encounters Encounter ID Performer Location Encounter Start Date Encounter Closed Date Diagnosis/Indication Diagnosis SNOMED-CT Code Diagnosis ICD10 Code Diagnosis Note [id number] Nik Steiner Jr, MD [facility] Urology [place] [address] 06/14/2023 13:38:48 06/14/2023 13:56:42 Prostate specific antigen above reference range 957654486 R97.20 68-year-ol d white male with PSA of 6.7. Prostate examinatio n is benign. We discussed various causes of elevated PSA and treatment options including close monitoring versus prostate biopsy. Patient is comfortabl e with watchful waiting and will repeat a PSA in 6 months. [id number] Nik Steiner Jr, MD [place] [address] 01/08/2024 13:43:13 01/08/2024 14:43:22 Prostate specific antigen above reference range 809985819 R97.20 68-year-ol d white male with history [...] free and total PSA in 3 months. [id number] [facility]iner Jr, MD [facility] [place] [id number] 04/08/2024 13:33:18 04/08/2024 14:38:56 Prostate specific antigen above reference range 021723132 R97.20 68-year-ol d white male with history [...] Name 10/03/2024 1 [place] Parth Pratt [id number] Parth Pratt 10/03/2024 2 [employer] [place] (MEDICARE SUPPLEMENT) Parth Pratt [id number] Parth Pratt Notes Date Note Type Note Provider Name and Address Organization Details Recorded Time 06/14/2023 text/html Patient is a 68-year-old white male referred for PSA elevation. His PSA was 6.7 on May 02. He is not aware of any previous PSAs. He denies a family history of prostate cancer. He denies any lower urinary tract symptoms. Nik Steiner Jr, MD [address], [address], [place], [address], [facility] & [place] 06/28/2023 13:12:10 01/08/2024 text/html Patient is a [...] of stress as his has been at [facility] for several weeks. Nik Steiner Jr, MD [address], [address], [place], [address], [facility] & [place] 01/08/2024 14:35:01 04/08/2024 text/html Patient is a [...] for prostate biopsy. Nik Steiner Jr, MD [address] [place] [address], [address], [place], [address], [facility] - [facility] - [facility] 04/08/2024 15:18:21
--- OUTSIDE RECORDS SUMMARY | 2025-03-17 12:07 | XMS_ITS | Encounter Summary ---
Author Organization Healthcare Address [address] [place] [address] Care Team Providers Care Pottery Decorator Name Role Phone Thiago Gregory APRN Primary Care Provider +1 [phone] Doug Bill RN Unavailable Unavailable Encounter Details Date Type Department Care Team (Latest Contact Info) Description 03/16/2025 Travel Social History Tobacco Use Types Packs/Day [...] any time in the past 12 m [facility], were you homeless or living in a penitentiary (including now)? No 12/07/2024 AUDIT-C Answer Date [...] drink first t nigel in the morning (EYE-MANAGER PERFORMANCE IMPROVEMENT) to steady your nerves or to get [...] as of this encounter Functional Status * AUDIT-C Score [...] Renetta Mann documented as of this encounter Plan of Treatment Upcoming Encounters Date Type Department Care Team (Late st Contact Info) Description 04/08/2025 9:10 AM EDT Office Visit [place] [facility] [address], [address] [place] [address] Mayi Ballard MBBS [address] [place] [address] 06/17/2025 12:00 PM EDT Appointment [facility] [address], [address]nd [place] [address] 06/17/2025 1:30 PM EDT Office Visit Medical Office Building Urology [address] [facility], [address] [place] [address] Talib Serna MD [address] [place] [address] documented as of this encounter Goals Goal [...] documented as of this encounter Care Teams Pottery Decorator Relationship Specialty Start Date End Date Thiago Gregory APRN [address] [place] [address] PCP - General 03/20/24 Doug Bill RN `````````````````````CH - PACU - MAJOR, PAV A Registered Nurse 12/23/24 documented as of this encounter
--- OUTSIDE RECORDS SUMMARY | 2025-03-17 12:07 | XMS_ITS | Encounter Summary ---
Author Organization Healthcare Address [address] [place] [address] Care Team Providers Care Spout Tender Name Role Phone Thiago Gregory APRN Primary Care Provider +1 [phone] Doug Bill RN Unavailable Unavailable Reason for Visit * Reason Onset Date Comments HCN - Patient Message 02/16/2025 Encounter Details Date Type Department Care Team (Late st Contact Info) Description 02/16/2025 Telephone [place] [facility] [address], [address] [place] [address] Talib Serna MD [address] [place] [address] HCN - Patient Message Social History Tobacco Use Types Packs/Day Years [...] any time in the past 12 m [facility], were you homeless or living in a halfway (including now)? No 12/07/2024 CAGE ASSESSMENT Answer [...] drink first t nigel in the morning (EYE-MACHINE SET UP) to steady your nerves or to get [...] encounter Miscellaneous Notes * Telephone Encounter - Nacho Linda - 02/16/2025 3:18 PM EDT Called and spoke to the patient and explained per the provider note * Telephone Encounter - Kaila Bhandari MD - 02/16/2025 2:41 PM EDT Still good to go for the procedure, ok to continue the preemptive abx, we will give him antifungalsin his IV morning of surgery * Telephone Encounter - Talib Connelly - 02/16/2025 2:18 PM EDT Patient Phone Message Reason for Call: Pt called as he has surgery tomorrow morning with Dr. Serna. Calling to confirm that he is still good to go for that procedure despite having a UA last week that showed yeast in hisurine. States that he was rxd a preemptive abx and is wondering if he is to discontinue taking that. Best contact number and optimal time of day to reach caller: [phone] - anytime Note: Please do not reply to this message. Follow-up communication and further actions as a result of this message need to be communicated with the patient directly, if the patient is not active onMyChart. If the patient is active on MyChart, they will receive notification of the communication/outcome via MyChart. documented in this encounter Plan of Treatment Upcoming Encounters Date Type Department Care Team (Late st Contact Info) Description 04/08/2025 9:10 AM EDT Office Visit [facility] Medicine Specialties [address], [address] [place] [address] Mayi Ballard MBBS [address] [place] [address] 06/17/2025 12:00 PM EDT Appointment [facility] [address], [address]nd [place] [address] 06/17/2025 1:30 PM EDT Office Visit Medical Office Building Urology [address] [facility], [address] [place] [address] Talib Serna MD [address] [place] [address] documented as of this encounter [...] plan has been documented for the patient 01/02/2025 12:17 PM EDT documented as of this encounter Care Teams Spout Tender Relationship Specialty Start Date End Date Thiago Gregory APRN [address] [place] [address] PCP - General 03/20/24 Doug Bill, RN `````````````````````CH - PACU - MAJOR, PAV A Registered Nurse 12/23/24 documented as of this encounter
--- OUTSIDE RECORDS SUMMARY | 2025-03-17 12:07 | XMS_ITS | Encounter Summary ---
Author Organization Healthcare Address [address] [place] [address] Care Team Providers Care Tile Helper Name Role Phone Thiago Gregory APRN Primary Care Provider +1 [phone] Doug Bill RN Unavailable Unavailable Reason for Visit * Reason Onset Date Comments HCN Clinical Concern/Question 02/12/2025 U/C Results 02/12/2025 Encounter Details Date Type Department Care Team (Late st Contact Info) Description 02/12/2025 Telephone [place] [facility] [address] [place] [address] Talib Serna MD [address] [place] [address] HCN Clinical Concern/Question; U/C Results Social History Tobacco Use Types Packs/Day Years [...] time in the past 12 m [facility], were you homeless or living in [...] drink first t nigel in the morning (EYE-CAMPER ASSEMBLER) to steady your nerves or to get [...] Risk Indicated 02/19/2025 8:00 PM EDT Chani Schwab RN * Question Answer Date of Assessment Author 1. Wish to be (Past 1 Month) No 025 8:00 PM EDT Chani Schwab RN 2. Non-Specific Active Suici sena Thoughts (Past 1 Month) No 02/19/2025 8:00 PM EDT Bianka Schwab RN 6. Suicidal Behavior (Lifetime) No 8:00 PM EDT Chani Schwab RN documented as of this encounter Miscellaneous Notes * Telephone Encounter - Nacho Linda - 02/26/2025 2:04 PM EDT Called and spoke to the patient and explained that with the stent in normal to see some blood In the uyrine and to drink plenty of fluids and that would help with the blood and the patient stated that they understood * Telephone Encounter - Yuli Headley - 02/26/2025 11:47 AM EDT Patient Phone Message Reason for Call: Pt requesting a return call please. Best contact number and optimal time of day to reach caller: [phone] Note: Please do not reply to this message. Follow-up communication and further actions as a result of this message need to be communicated with the patient directly, if the patient is not active onMyChart. If the patient is active on MyChart, they will receive notification of the communication/outcome via Moonto[employer]t. * Telephone Encounter - Nacho Linda - 02/26/2025 9:58 AM EDT Called and left a message to call the clinic back * Telephone Encounter - Adalgisa Black - 02/26/2025 9:51 AM EDT Clinical Concern/Question Reason for Call: patient is 8 days post surgery and is seeing some bleeding asking if it is normal Best contact number: [phone] (home) Optimal time of day to reach caller: ANYTIME Additional comments/information from caller: None Note: Please do not reply to this message. Follow-up communication and further actions as a result of this message need to be communicated with the patient directly, if the patient is not active onMyChart. If the patient is active on MyChart, they will receive notification of the communication/outcome via [facility]. * Telephone Encounter - Wendi Infante - 02/16/2025 8:39 AM EDT Uploaded 02/12/25 Final Urine Culture from [facility] Primary Care * Telephone Encounter - Nacho Linda - 02/12/2025 2:26 PM EDT Are in media * Telephone Encounter - Nacho Linda - 02/12/2025 2:25 PM EDT Called and spoke to the patient and they stated they just got them done. Called carlos and they are faxing over the results of what they have so far so that the provider can review. * Telephone Encounter - Andrew Prabhakar - 02/12/2025 1:27 PM EDT Clinical Concern/Question Reason for Call He has surgery scheduled on 02/17. He had a UTI and was seen today [facility] and he did a lab and they will be faxing the results. Best contact number: [phone] (home) Optimal time of day to reach caller: ANYTIME Additional comments/information from caller: None Note: Please do not reply to this message. Follow-up communication and further actions as a result of this message need to be communicated with the patient directly, if the patient is not active onMyChart. If the patient is active on MyChart, they will receive notification of the communication/outcome via [facility]. documented in this encounter Plan of Treatment Upcoming Encounters Date Type Department Care Team ([facility] st Contact Info) Description 04/08/2025 9:10 AM EDT Office Visit [facility] Medicine Specialties [address] [place] [address] Mayi Ballard MBBS [address] [place] [address] 06/17/2025 12:00 PM EDT Appointment [facility] [address] [place] [address] 06/17/2025 1:30 PM EDT Office Visit Medical Office Building Urology [address] [facility], [address] [place] [address] Talib Serna MD [address] [place] [address] documented as of this encounter Goals Goal [...] documented as of this encounter Care Teams Tile Helper Relationship Specialty Start Date End Date Thiago Gregory APRN [address] [place] [address] PCP - General 03/20/24 Doug Bill, RN `````````````````````CH - PACU - MAJOR, PAV A Registered Nurse 12/23/24 documented as of this encounter
--- OUTSIDE RECORDS SUMMARY | 2025-03-17 12:07 | XMS_ITS | Encounter Summary ---
Author Organization Healthcare Address [address] [place] [address] Care Team Providers Care Flyer Maker Name Role Phone Thiago Gregory APRN Primary Care Provider +1 [phone] Doug Bill RN Unavailable Unavailable Encounter Details Date Type Department Care Team (Late st Contact Info) Description 03/16/2025 Telephone [place] [facility] [address] [place] [address] Ariana Clayton LPN [facility] Social History Tobacco Use Types Packs/Day Years [...] any time in the past 12 m [facility], were you homeless or living in a care home (including now)? No 12/07/2024 AUDIT-C Answer Date [...] drink first t nigel in the morning (EYE-CASCADE OPERATOR) to steady your nerves or to get [...] encounter Miscellaneous Notes * Telephone Encounter - Ariana Clayton LPN - 03/16/2025 4:23 PM EDT Patient called and stated he had his stent removed today with Dr. Serna and he is now have severe pain from him Flank down to his pelvic area. If he lays on his right side it makes it worse. He has voiding a few times but not a lot of urine is coming out. His pain is a 5/10 but it is a constant pain and is very concerned. I advised if he is in that much pain then he will need to go to the ER to be evaluated. I also advised to try interchanging tylenol and ibuprofen but did not feel like that would work for him. He is going to wait a half hour and if nothing changes he will be coming to the ER. documented in this encounter Plan of Treatment Upcoming Encounters Date Type Department Care Team (Late st Contact Info) Description 04/08/2025 9:10 AM EDT Office Visit [place] [facility] [address] [place] [address] Mayi Ballard MBBS [address] [place] [address] 06/17/2025 12:00 PM EDT Appointment [facility] [address] [place] [address] 06/17/2025 1:30 PM EDT Office Visit Medical Office Building Urology [address] [facility], [address] [place] [address] Talib Serna MD [address] [place] [address] documented as of this encounter Goals Goal Patient Goal Type Associated Problems Recent Progress Patient-Stated? Author Autogenerat ed Goal Care Plan Autogenerated Problem No RayLidia documented as of this encounter Visit Diagnoses [...] documented as of this encounter Care Teams Flyer Maker Relationship Specialty Start Date End Date Thiago Gregory APRN [address] [place] [address] PCP - General 03/20/24 Bill, Doug L, RN `````````````````````CH - PACU - MAJOR, PAV A Registered Nurse 12/23/24 documented as of this encounter
--- OUTSIDE RECORDS SUMMARY | 2025-03-17 12:08 | XMS_ITS | Encounter Summary ---
Author Organization Healthcare Address [address] [place] [address] Care Team Providers Care Workforce Planning Analyst Name Role Phone Thiago Gregory APRN Primary Care Provider [phone] Doug Bill RN Unavailable Unavailable Reason for Visit * Reason Onset Date Comments HCN - Patient Message 03/17/2025 Pain after stent removal Encounter Details Date Type Department Care Team (Late st Contact Info) Description 03/17/2025 [facility]phone [place] [facility] [address] [place] [address] Talib Serna MD [address] [place] [address] HCN - Patient Message (Pain after stent removal ) Social History Tobacco Use Types Packs/Day Years [...] any time in the past 12 m [facility], were you homeless or living in a detention (including now)? No 12/07/2024 AUDIT-C Answer Date [...] drink first t nigel in the morning (EYE-METAPHYSICS TEACHER) to steady your nerves or to get [...] encounter Miscellaneous Notes * Telephone Encounter - Yuli Headley - 03/17/2025 9:16 AM EDT Patient Phone Message Reason for Call: Pt requesting a return call regarding the pain he was in yesterday has gotten a little better and flow has increased but he is still concerned that he is not back to baseline. Pt is unsure if he should come to ED or go locally. Best contact number and optimal time of day to reach caller: [phone] Note: Please do not reply to this message. Follow-up communication and further actions as a result of this message need to be communicated with the patient directly, if the patient is not active onMyChart. If the patient is active on MyChart, they will receive notification of the communication/outcome via [employer]. documented in this encounter Plan of Treatment Upcoming Encounters Date Type Department Care Team (Late st Contact Info) Description 04/08/2025 9:10 AM EDT Office Visit [facility] [address] [place] [address] Mayi Ballard MBBS [address] [place] [address] 06/17/2025 12:00 PM EDT Appointment [facility] [address] [place] [address] 06/17/2025 1:30 PM EDT Office Visit Medical Office Building Urology [address] [facility], [address] [place] [address] Talib Serna MD [address] [place] [address] documented as of this encounter [...] documented as of this encounter Care Teams Workforce Planning Analyst Relationship Specialty Start Date End Date Thiago Gregory APRN [address] [place] [address] PCP - General 03/20/24 Doug Bill RN `````````````````````[facility] - PACU - MAJOR, PAV A Registered Nurse 12/23/24 documented as of this encounter
--- OUTSIDE RECORDS SUMMARY | 2025-03-17 12:08 | XMS_ITS | Clinical Summary ---
Author Organization [facility] Address [address] [place] [address] Care Team Providers Care Restaurant Expeditor Name Role Phone Thiago Gregory APRN Primary Care Provider Doug Bill RN Unavailable Unavailable Allergies Active Allergy Reactions Criticality Noted Date Comments Chocolate Dermatitis Low 12/15/2024 Prochlorperazine Nausea Low 04/25/2022 Muscle tightness (neck) Medications colchicine (Colcrys) 0.6 MG tablet Take 1 tablet by mouth 2 times a day. Active methocarbamol (Robaxin) 500 MG tablet Take 1 tablet by mouth 4 times a day for 5 days. 20 tablet 02/21/20 25 Active senna-docusate sodium (Senokot-S) 8.6-50 MG tablet Take 1 tablet by mouth daily. 30 tablet 02/21/20 25 025 Active tamsulosin (Flomax) 0.4 MG 24 hr capsule Take 1 capsule by mouth 1 time each day with dinner. 60 capsule 02/21/20 25 025 Active phenazopyridine (Pyridium) 200 MG tablet Take 1 tablet by mouth 3 times a day as needed for pain, discomfort or irritation. 20 tablet 02/21/20 25 025 Active oxyCODONE (Roxicodone) 5 MG immediate release tablet Take 1 tablet by mouth every 6 hours as needed for severe pain for up to 5 doses. 5 tablet 02/21/20 25 Active naloxone (Narcan) 4 mg/0.1 mL nasal spray 1. Give 1 spray in nostril for no/slow breathing or cannot wake after opioid use 2. Call 911 3. Repeat in other nostril if symptoms continue 1 each 02/21/20 25 Active tamsulosin (Flomax) 0.4 MG 24 hr capsule Take 1 capsule (0.4 mg) by mouth daily. 30 capsule 2 11/13/19 25 Discontinu ed(Stop Taking at Discharge) lisinopril 40 MG tablet Take 1 tablet by mouth daily. Discontinu ed(Entered in Error) methocarbamol (Robaxin) 500 MG tablet Take 1 tablet by mouth 4 (four) times a day as needed for muscle spasms. 40 tablet 12/26/19 Discontinu ed(Entered in Error) ondansetron ODT (Zofran-ODT) 4 MG disintegrating tablet Dissolve 1 tablet on the tongue every 8 hours as needed for nausea or vomiting. 20 tablet 12/26/19 Discontinu ed(Entered in Error) acetaminophen (Tylenol) 500 MG tablet Take 2 tablets by mouth every 6 hours as needed for pain. 100 tablet 12/26/19 Discontinu ed(Entered in Error) colchicine (Colcrys) 0.6 MG tablet Take 0.5 tablets by mouth 2 (two) times a day for 14 days, THEN 1 tablet 2 (two) times a day. 134 tablet 01/03/20 Discontinu ed(Entered in Error) Sulfamethoxazole-T rimethoprim (BACTRIM PO) Take by mouth 2 times a day. UTI Discontinu ed(Entered in Error) acetaminophen (Tylenol) 500 MG tablet Take 2 tablets by mouth every 6 hours as needed for pain, headaches or fever for up to 5 days. 40 tablet 02/21/20 lidocaine (Lidoderm) 5 % patch Apply 1 patch topically daily over 12 hours for 5 days. Remove & discard patch within 12 hours or as directed by . 5 patch 02/21/20 Active Problems Problem Noted Date Diagnosed Date Ureteropelvic junction (UPJ) obstruction, right 02/17/2025 UPJ (ureteropelvic junction) obstruction 05/21/2 025 Acute postoperative abdominal pain 01/01/2025 Ureteral stricture 12/22/2024 Hydronephrosis of right kidney 12/04/2024 Resolved Problems Problem Noted Date Diagnosed Date Resolved Date Alcohol abuse 07/01/2024 07/01/2024 Contact dermatitis 07/01/2024 4 Encephalopathy 07/01/2024 07/01/2024 Heberden's nodes of left hand 07/01/2024 07/01/2024 Hypertensive encephalopathy syndrome 07/01/2024 07/01/2024 Pain of left thumb 07/01/2024 Poison rashida dermatitis 07/01/20242023 Subcutaneous nodule of left thumb 07/01/2024 07/01/2024 Tobacco dependence due to cigarettes 07/01/2024 07/01/2024 Essential hypertension 04/25/202207/01 Encounters Date Type Department Care Team Description 03/17/2025 Telephone [facility] Urology [address] [facility], [address] [place] [phone] Talib Serna MD HCN - Patient Message (Pain after stent removal ) 03/16/2025 9:15 AM EDT Office Visit Medical Office Building Urology [facility], [address] [place] [address] Talib Serna MD Hydronephrosis of right kidney (Primary Dx) 03/16/2025 Telephone [facility] Urology [address], [address] [place] [phone] Ariana Clayton, MOLD MAKER HELPER 03/16/2025 Travel 03/02/2025 Telephone [facility] Urology [address], [address] [place] [phone] Talib Serna MD HCN Clinical Concern/Question 02/20/2025 Travel 02/17/2025 8:15 AM EDT - 02/17/2025 12:40 PM EDT Surgery [facility] [address] [place] [phone] Talib Serna MD PYELOPLASTY, ROBOT-ASSISTED, USING DA COLE XI [21009 (CPT )] 02/17/2025 8:11 AM EDT Anesthesia Event [facility] [address] [place] [address] Gordo Pham CRNA Abiri, Brian A, DO 02/17/2025 5:24 AM EDT - 02/20/2025 3:18 PM EDT Hospital Encounter [facility] Inpatient [address] [place] [address] Talib Serna MD Hydronephrosis, right Discharge Disposition: Home or Self Care 02/17/2025 Travel 02/16/2025 Telephone [facility] Urology [address] [facility], [address] [place] [phone] Talib Serna MD HCN - Patient Message 02/12/2025 Telephone [facility] Urology [address] [place] [address], [address] [place] [phone] Talib Serna MD HCN Clinical Concern/Question; U/C Results 01/15/2025 Telephone [facility] Urology [address] [facility], [address] [place] [phone] Talib Serna MD 01/01/2025 5:16 AM EDT - 01/02/2025 12:30 PM EDT Hospital Encounter [facility] [address] [place] [address] Rick Kumar MD [place], MD Kareem Mitchell Jason R, MD Abdominal pain, unspecified abdominal location (Primary Dx); Acute cystitis without hematuria Discharge Disposition: Home or Self Care 01/01/2025 Orders Only External Location [address] [place] [address] Provider, External 12/31/2024 3:15 PM EDT Office Visit Medical Office Building Urology [facility], [address] [place] [address] Talib Serna MD Hydronephrosis of right kidney (Primary Dx) 12/31/2024 12:03 PM EDT - 12/31/2024 11:59 PM EDT Hospital Encounter [facility] Radiology [address] [place] [address] Ureteral stricture Discharge Disposition: Home or Self Care 12/31/2024 Travel 12/25/2024 Telephone [facility] Urology [address], [address] [place] [phone] Talib Serna MD HCN - Patient Message 12/24/2024 Travel 12/23/2024 Orders Only [facility] Urology [address], [address] [place] [phone] Lj De Jesus MD Ureteral stricture (Primary Dx) 12/22/2024 7:45 AM EDT - 12/22/2024 11:05 AM EDT Surgery [facility] [address] [place] [phone] Talib Serna MD REIMPLANTATION, URETER, ROBOT-ASSISTED, LAPAROSCOPIC, CYSTOSCOPY AND RIGHT URETERAL STENT PLACEMENT [92748 (CPT )] 12/22/2024 7:44 AM EDT Anesthesia Event [facility] [address] [place] [address] Alfredo Harper MD Woo, Melissa W, ABRASIVE GRADER HELPER, DNP 12/22/2024 5:28 AM EDT - 12/25/2024 6:31 PM EDT Hospital Encounter [facility] Inpatient [address] [place] [address] Talib Serna MD Discharge Disposition: Home or Self Care 12/22/2024 Travel 12/17/2024 Telephone [facility] Urology [address], [address] [place] [phone] Talib Serna MD HCN Clinical Concern/Question 12/17/2024 Telephone [facility] Medicine Specialties [address], [address] [place] [phone] Gladis Caballero 12/15/2024 11:38 AM EDT Anesthesia Event [facility] Operating Room [address] [place] [phone] Gaston Morris MD 12/15/2024 11:20 AM EDT - 12/15/2024 1:15 PM EDT Surgery [facility] S Operating Room [address] [place] [address] Talib Serna MD cystosopy, ANTEGRADE URETEROSCOPY, right nephrostomy tube exchange 12/15/2024 8:54 AM EDT - 12/15/2024 2:50 PM EDT Hospital Encounter [facility] S Operating Room [address] [place] [address] Talib Serna MD Hydronephrosis; Ureteropelvic junction (UPJ) obstruction Discharge Disposition: Home or Self Care 12/15/2024 Travel from Last 3 Months Immunizations Immunization Administration Dates Next Due Influenza Vaccine, Quadrivalent, Adjuvanted 07/31,07/23/2022,11/28/2021 Influenza, High-dose, Split Virus, Trivalent, Injectable, preservative free 08/19/2024 Influenza, trivalent, adjuvanted 06/20/2020 Rsvpref, Recombinant, Protei n Subunit, Adjuvent 08/19/2024 Zoster, Recombinant 02/05/2020 Family History Medical History Relation Name Comments Hyperthyroidism Sister Damaso Hyperthermia Neg Hx Relation Name Status Comments Sister Social History Tobacco Use Types Packs/Day Years Used Date Smoking Tobacco: Former Cigarettes 4 18 S tarted: 1967 Passive Smoke Exposure: Past Smokeless Tobacco: Never Tobacco Cessation:Counseling Given: Not Answered Alcohol Use Standard Drinks/Week Comments Yes 39 [...] in the past [address] [facility], were you homeless or living in a nursing home (including now)? No 12/07/2024 AUDIT-C Answer [...] drink first t nigel in the morning (EYE-PSYCHOLOGICAL ASSISTANT) to steady your nerves or to get [...] on file Sexual Orientation Not on file Last Filed Vital Signs Vital Sign Reading Time Taken Comments Blood Pressure 152/88 03/16/2025 9:38 AM EDT Pulse 67 03/16/2025 9:38 AM EDT Temperature 36.8 C (98.2 F) 02/20/2025 12:06 PM EDT Respiratory Rate 16 02/20/2025 4:02 AM EDT Oxygen Saturation 98% 03/16/2025 9:38 AM EDT Inhaled Oxygen Concentration - - Weight 68 kg (150 lb) 03/16/2025 9:38 AM EDT Height 180.3 cm (5' 11 ) 03/16/2025 9:38 AM EDT Body Mass Index 20.92 03/16/2025 9:38 AM EDT Plan of Treatment Upcoming Encounters Date Type Department Care Team (Late st Contact Info) Description 04/08/2025 9:10 AM EDT Office Visit [facility] Medicine Specialties [address], [address] [place] [address] Mayi Ballard MBBS [address] [place] [address] 06/17/2025 12:00 PM EDT Appointment [facility] [address], [address] [place] [address] 06/17/2025 1:30 PM EDT Office Visit Medical Office Building Urology [address] [facility], [address] [place] [address] Talib Serna MD [address] [place] [address] Health Maintenance Due Date Last Done Comments [facility]-Medicare Annual Wellness (AWV) 1955 [facility]-Infant/Child/Adol SDOH Screenings 1955 [facility]-DTaP,Tdap,and Td Vaccines (1 - Tdap) 1973 CT Colonography 1999 Colonoscopy 1999 FIT-DNA 1999 FIT 1999 FOBT 1999 Sigmoidoscopy 1999 [facility]-Colorectal Cancer Screening 1999 [facility]-Pneumococcal Vaccine: 50+ Years (1 of 1 - PCV) 01/26/2004 [facility]-Abdominal Aortic Aneurysm (AAA) Screening 2019 [facility]-Zoster Vaccines (2 of 2) 04/01/2020 02/05/2020 [id number] Vaccine ( season) 2025 08/19/2024, 08/09/2023, 07/23/2022, Additional history exists [facility]- SDOH Screenings 06/09/2025 [facility]-Adult SDOH Screenings 06/09/2025 12/07/2024 [facility]-Depression Screening 03/16/2026 03/16/2025 [facility]-Hepatitis C Screening Completed 04/10/2024, 08/2024 [facility]-Influenza Vaccine Completed 08/19/2024 , 08/09/2023, 07/23/2022, Additional history exists [facility]-RSV Vaccine: 60+ Years or Completed 08/19/2024 HPV Vaccines Aged Out No longer eligi ble based on patient's age to complete this topic [facility]-HIB Vaccines Aged Out No longer e ligible based on patient's age to complete this topic [facility]-Hepatitis A Vaccines Aged Out No longer eligible based on patient's age to complete this topic [facility]-IPV Vaccines Aged Out No longer e ligible based on patient's age to complete this topic [facility]-Rotavirus Vaccines Aged Out No lo nger eligible based on patient's age to complete this topic Goals Goal Patient Goal Type Associated Problems Recent Progress Patient-Stated? Author Autogenerat ed Goal Care Plan Autogenerated Problem No [employer] Implanted Type Area Claim Inspector Device Identifier Shelf Expiration Date Model / Serial / Lot Hip Hip Bilateral: Hip Stent Ureteral [employer] Monofilament 7f/24cm - [id number] Implanted:Qty: 1 on 12/22/2024 by Talib Serna MD at [facility] Stent Right: Ureter [id number] 07/23/2027 [id number] 20 / / [id number] Stent Ureteral Double Pigtail Pos 6fr 22cm - [id number] - [id number] Implanted:Qty: 1 on 02/17/2025 by Talib Serna MD at [facility] Stent [id number] 07/01/2025 [id number] Procedures Procedure Name Priority Date/Time Associated Diagnosis Comments URO CYSTO SUPPLIES Routine 03/16/2025 9: 15 AM EDT Hydronephrosis of right kidney NE CYSTOSCOPY,REMV CALCULUS,SIMPLE Routine 03/16/2025 9:15 AM EDT Hydronephrosis of right kidney XR ABDOMEN 1 VIEW STAT 02/20/2025 11: [address] UROGRAM STAT 02/20/2025 10:28 AM EDT BASIC METABOLIC PANEL, PLASMA Routine 02/20/2025 4:13 AM EDT CBC W/O DIFFERENTIAL Routine 02/20/2025 4:13 AM EDT BASIC METABOLIC PANEL, PLASMA Routine 02/19/2025 4:38 AM EDT CBC W/O DIFFERENTIAL Routine 02/19/2025 4:38 AM EDT BASIC METABOLIC PANEL, PLASMA Routine 02/18/2025 4:18 AM EDT CBC W/O DIFFERENTIAL Routine 02/18/2025 4:18 AM EDT BASIC METABOLIC PANEL, PLASMA Routine 02/17/2025 4:37 PM EDT CBC W/O DIFFERENTIAL Routine 02/17/2025 4:37 PM EDT SURGICAL PATHOLOGY EXAM Routine 02/17/2025 1:42 PM EDT Hydronephrosis, right URINE CULTURE Routine 02/17/2025 9:00 AM EDT Hydronephrosis, right ANESTHESIA PERIPHERAL IV PLACEMENT Routine 02/17/2025 8:20 AM EDT PB ANESTHESIA PLACEHOLDER Routine 02/17/2025 8:19 AM EDT NE AN ELECTIVE ENDOTRACHEAL AIRWAY Routine 02/17/2025 8:19 AM EDT NE LAP,PYELOPLASTY 02/17/2025 8: 05 AM EDT Hydronephrosis, right TYPE AND SCREEN STAT 02/17/2025 6:48 AM EDT POCT GLUCOSE METER UNSOLICITED RESULTS Routine 01/02/2025 7:29 AM EDT BASIC METABOLIC PANEL, PLASMA Routine 01/02/2025 4:12 AM EDT CBC W/O DIFFERENTIAL Routine 01/02/2025 4:12 AM EDT POCT GLUCOSE METER UNSOLICITED RESULTS Routine 01/01/2025 5:05 PM EDT POCT GLUCOSE METER UNSOLICITED RESULTS Routine 01/01/2025 12:44 PM EDT SEND OMA MESSAGE STAT 01/01/2025 8: 03 AM EDT URINALYSIS MICROSCOPIC FOR UA REFLEX STAT 01/01/2025 8:03 AM EDT URINE BARLOW PANEL STAT 01/01/2025 8:03 AM EDT URINALYSIS WITH REFLEX MICROSCOPIC STAT 01/01/2025 8:03 AM EDT URINALYSIS WITH REFLEX MICROSCOPIC AND CULTURE STAT 01/01/2025 8:03 AM EDT URINE CULTURE STAT 01/01/2025 8:03 AM EDT TYPE AND SCREEN STAT 01/01/2025 6:41 AM EDT LACTATE, VENOUS STAT 01/01/2025 6:41 AM EDT LIPASE, PLASMA STAT 01/01/2025 6:41 AM EDT COMPREHENSIVE METABOLIC PANEL, PLASMA STAT 01/01/2025 6:41 AM EDT CBC WITH AUTO DIFFERENTIAL STAT 01/01/2025 6:41 AM EDT BLOOD CULTURE (AEROBIC/ANAEROBIC SET) STAT 01/01/2025 6:41 AM EDT BLOOD CULTURE (AEROBIC/ANAEROBIC SET) STAT 01/01/2025 6:41 AM EDT ECG ADULT STAT 01/01/2025 6:[address] MSK OUTSIDE IMAGES 01/01/2025 12:07 AM EDT FL CYSTOGRAM Routine 12/31/2024 2:22 PM EDT Ureteral stricture CBC W/O DIFFERENTIAL Routine 12/25/2024 12:24 AM EDT BASIC METABOLIC PANEL, PLASMA Routine 12/25/2024 12:[address] ABDOMEN PELVIS WO IV CONTRAST STAT 12/24/2024 6:52 PM EDT BASIC METABOLIC PANEL, PLASMA Routine 12/24/2024 12:26 AM EDT CBC W/O DIFFERENTIAL Routine 12/24/2024 12:26 AM EDT CBC W/O DIFFERENTIAL Routine 12/23/2024 6:01 AM EDT BASIC METABOLIC PANEL, PLASMA Routine 12/23/2024 12:45 AM EDT CBC W/O DIFFERENTIAL Routine 12/23/2024 12:45 AM EDT BASIC METABOLIC PANEL, PLASMA Routine 12/22/2024 12:36 PM EDT CBC WITH AUTO DIFFERENTIAL Routine 12/22/2024 12:36 PM EDT FL LESS THAN 1 HOUR (NON-REPORTABLE) Routine 12/22/2024 12:01 PM EDT PB ANESTHESIA PLACEHOLDER Routine 12/22/2024 7:52 AM EDT NE AN ELECTIVE ENDOTRACHEAL AIRWAY Routine 12/22/2024 7:52 AM EDT NE LAP,REIMPLANT URETER W/CYSTO,STENT 12/22/2024 7:33 AM EDT Ureteropelvic junction (UPJ) obstruction FL LESS THAN 1 HOUR (NON-REPORTABLE) Routine 12/15/2024 12:52 PM EDT URINE CULTURE Routine 12/15/2024 12:05 PM EDT Hydronephrosis Ureteropelvic junction (UPJ) obstruction PB ANESTHESIA PLACEHOLDER Routine 12/15/2024 11:42 AM EDT NE AN ELECTIVE SUPRAGLOTTIC AIRWAY Routine 12/15/2024 11:42 AM EDT INSERTION OR REPLACEMENT, NEPHROSTOMY TUBE 12/15/2024 11:22 AM EDT Hydronephrosis Ureteropelvic junction (UPJ) obstruction NE CYSTO/URETERO/PYELOSCO PY, DX 12/15/2024 11:22 AM EDT Hydronephrosis Ureteropelvic junction (UPJ) obstruction CYSTOSCOPY, WITH RETROGRADE PYELOGRAM 12/15/2024 11:22 AM EDT Hydronephrosis Ureteropelvic junction (UPJ) obstruction HEPATITIS C ANTIBODY W/REFLEX TO HCV QUANT PCR Routine 04/10/2024 11:20 AM EDT High risk medication use from Last 3 Months or Most Recently Relevant to Health Maintenance Results * NE CYSTOSCOPY,REMV CALCULUS,SIMPLE, URO CYSTO SUPPLIES (03/16/2025 9:15 AM EDT) Narrative Talib Serna MD - 03/16/2025 9:15 AM EDT Talib Serna MD 03/16/2025 3:02 PM Cysto with Stent Removal Performed by: Talib Serna MD Authorized by: Talib Serna MD Abnormal Bladder Details: Cystoscopy Object Removal Details: us Talib Serna MD PROCEDURE ORDERABLES Final Result * XR Abdomen 1 View (02/20/2025 11:15 [...] following split bolus administration of IV contrast, [id number], 150 mL. Reformatted images in the coronal [...] IMG CT PROCEDURES Final Result * (ABNORMAL) Hemogram (CBC) (02/20/2025 4:13 AM EDT) Only the most recent of9 resultswithin the time period is included. WBC Count 15.39(H) 3.70 - 10.30 10*3/uL LAB HEMATOLOGY METHOD 02/20/2025 4:41 AM EDT [facility] RBC Count 4.51(L) 4.60 - 6.10 10*6/uL LAB HEMATOLOGY METHOD 02/20/2025 4:41 AM EDT [facility] HGB 14.0 13.7 - 17.5 g/dL LAB HEMATOLOGY METHOD 02/20/2025 4:41 AM EDT [facility] HCT 41.4 40.0 - 51.0 % LAB HEMATOLOGY METHOD 02/20/2025 4:41 AM EDT [facility] Platelet Count 202 155 - 369 10*3/uL LAB HEMATOLOGY METHOD 02/20/2025 4:41 AM EDT [facility] MCV 92 79 - 98 fL LAB HEMATOLOGY METHOD 02/20/2025 4:41 AM EDT [facility] MCH 31.0 26.0 - 32.0 pg LAB HEMATOLOGY METHOD 02/20/2025 4:41 AM EDT [facility] MCHC 33.8 30.7 - 35.5 g/dL LAB HEMATOLOGY METHOD 02/20/2025 4:41 AM EDT [facility] RDW 13.5 11.5 - 14.5 % LAB HEMATOLOGY METHOD 02/20/2025 4:41 AM EDT [facility] MPV 10.4 8.8 - 12.5 fL LAB HEMATOLOGY METHOD 02/20/2025 4:41 AM EDT [facility] nRBC 0.0 <=0.0 per 100 WBCs LAB HEMATOLOGY METHOD 02/20/2025 4:41 AM EDT [facility] Blood Venous blood specimen / Unknown Venipuncture / Unknown 02/20/2025 4:13 AM EDT 02/20/2025 4:26 AM EDT us Talib Serna MD LAB BLOOD ORDERABLES Final Res ult [facility] [address] [place] [address] * (ABNORMAL) Basic metabolic panel (02/20/2025 4:13 AM EDT) Only the most recent of9 resultswithin the time period is included. Glucose, Plasma 108(H) 74 - 99 mg/dL 02/20/2025 4:54 AM EDT [facility] BUN, Plasma 13 8 - 23 mg/dL 02/20/2025 4:54 AM EDT [facility] Creatinine, Plasma 0.61(L) 0.70 - 1.20 mg/dL 02/20/2025 4:54 AM EDT [facility] BUN/Creatinine Ratio 21 02/20/2025 4:54 AM EDT [facility] Sodium, Plasma 137 136 - 145 mmol/L 02/20/2025 4:54 AM EDT [facility] Potassium, Plasma 3.9 3.6 - 4.9 mmol/L 02/20/2025 4:54 AM EDT [facility] Chloride, Plasma 101 97 - 107 mmol/L 02/20/2025 4:54 AM EDT [facility] CO2, Plasma 23 22 - 29 mmol/L 02/20/2025 4:54 AM EDT [facility] Anion Gap 13 6 - 16 mmol/L 02/20/2025 4:54 AM EDT [facility] Total Calcium, Plasma 9.2 8.9 - 10.2 mg/dL 02/20/2025 4:54 AM EDT [facility] eGFRcr 102.7 mL/min/1.7 3m*2 02/20/2025 4:54 AM EDT [facility] Comment:Reported eGFRcr in m L/min/1.73m2 is based the CKD-EPI 2020 equation that does not use a race coefficient. Blood Venous blood specimen / Unknown Venipuncture / Unknown 02/20/2025 4:13 AM EDT 02/20/2025 4:23 AM EDT us Talib Serna MD LAB BLOOD ORDERABLES Final Res ult [facility] [address] [place] [address] * Surgical Pathology Exam (02/17/2025 1:42 PM EDT) Case Report Surgical Pathology Case: [id number] Authorizing Provider: Talib Serna MD Collected: 02/17/2025 1342 Ordering Location: [facility] Received: 02/17/2025 1427 Pathologist: Lesia Cole MD Specimen: Other (specify site), right proximal ureter 02/19/2025 11:07 AM EDT [facility] Final Diagnosis A. 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 02/19/2025 11:07 AM EDT [facility] at 1107 EDT Clinical Information hydronephrosis of right kidney 02/19/2025 11:07 AM EDT [facility] Gross Description A. RIGHT PROXIMAL URETER Received in formalin labeled right proximal ureter are multiple pieces of pink-desir rubbery tissue roughened with cauterization measuring 2.3 x 2.0 x 0.7 cm in aggregate. Entirely submitted in cassette A1. Cold Time: <1m Iveth Ramírez 02/19/2025 11:07 AM EDT [facility] Note: A resident was involved in the service. I attest I examined the relevant preparations for the specimens and confirmed the diagnosis or interpretation. 02/19/2025 11:07 AM EDT [facility] Tissue Topography unknown / Unknown 02/17/2025 1:42 PM EDT 02/17/2025 2:27 PM EDT Comment:Pre-op diagnosis: hydronephrosis of right kidney Talib Serna MD LAB PATHOLOGY ORDERABLES Final Result [facility] [address] [place] [address] * (ABNORMAL) Urine Culture (02/17/2025 9:00 AM EDT) Only the most recent of3 resultswithin the time period is included. Culture 1,000 - 10,000 CFU/mL Lucie albicans(A) 02/19/2025 1:01 PM EDT [facility] Comment: This result was determined by MALDI tof Mass spectrometry. This assay was developed and its performance characteristics determined by [facility] as appropriate for clinical purposes. [...] right kidney us Talib Serna MD LAB MICROBIOLOGY - GENERAL ORD ERABLES Final Result [facility] [address] [place] [address] * Peripheral IV (02/17/2025 8:20 AM EDT) Narrative Gordo Pham CRNA - 02/17/2025 8:20 AM EDT Gordo Pham CRNA 02/17/2025 9:08 AM Peripheral IV Date/Time: 02/17/2025 8:20 AM Inserted by: Gordo Pham CRNA Placement Needle size: 16 G Location: forearm Local anesthetic: none Site prep: alcohol Technique: anatomical landmarks Attempts: 1 us Balaji Jo MD ANESTHESIA ORDERABLES Final R esult * NE AN ELECTIVE ENDOTRACHEAL AIRWAY, PB ANESTHESIA PLACEHOLDER (02/17/2025 8:19 AM EDT) Narrative Gordo Pham CRNA - 02/17/2025 8:19 AM EDT Gordo Pham CRNA 02/17/2025 9:07 AM Airway Date/Time: 02/17/2025 8:19 AM Reason: elective Airway not difficult General Information and Staff Patient location during procedure: OR ABRASIVE GRADER HELPER: Gordo Pham CRNA Performed: BETZAIDA Patient Condition [...] MD ANESTHESIA ORDERABLES Final R esult * Type and Screen (02/17/2025 6:48 AM EDT) Only the most recent of2 resultswithin the time period is included. ABO/Rh O Positive 02/17/2025 6:30 AM EDT BLOOD BANK Antibody Screen Negative 02/17/2025 6:30 AM EDT BLOOD BANK Specimen Expiration 02/20/2025 23:59 02/17/2025 6:30 AM EDT BLOOD BANK Blood Venous blood specimen / Unknown Venipuncture / Unknown 02/17/2025 6:48 AM EDT 02/17/2025 6:53 AM EDT Talib Serna MD LAB BLOOD BANK TEST ORDERABLES Final Result BLOOD BANK [address] [place] [address], * POCT glucose meter (01/02/2025 7:29 AM EDT) Only the most recent of3 resultswithin the time period is included. Pathologist [facility] POCT Glucose 88 74 - 99 mg/dL 01/02/2025 7:35 AM EDT [facility] Comment:Accuracy of a glucos e result obtained from a capillary whole blood specimen relies upon adequate, non-compromised capillary blood flow. If the capillary glucose result is not consistent with the patient's clinical signs and symptoms, glucose testing should be repeated with either an arterial or venous sample on the glucometer or sent to the main labortory for testing. Comment 01/02/2025 7:35 AM EDT [facility] Tail Worker ID Suzette Lynne 01/02/2025 7:35 AM EDT [facility] Device ID [id number] 01/02/2025 7:35 AM EDT [facility] [facility] Specimen Type POC Capillary 01/02/2025 7:35 AM EDT [facility] Blood Capillary blood specimen / Unknown 01/02/2025 7:29 AM EDT 01/02/2025 7:35 AM EDT us Talib Serna MD LAB POINT OF CARE TE ST DOCKED DEVICE UNSOLICITED RESULTS Final Result Performing Organization Address City/[facility]/ZIP Co de Phone Number [facility] [address] [place] [address] * SEND OMA MESSAGE (01/01/2025 8:03 AM EDT) Urine Urine specimen obtained by clean catch procedure / Unknown Non-blood Collection / Unknown 01/01/2025 8:03 AM EDT 01/01/2025 8:16 AM EDT us Rick Kumar MD LAB URINE ORDERABLES Final Res ult Performing Organization Address City/[facility] Co de Phone Number [facility] [address] [place] [address] * Urine Barlow Panel (01/01/2025 8:03 AM EDT) Extra Sent for Culture 01/01/2025 10:01 AM EDT [facility] Urine Urine specimen obtained by clean catch procedure / Unknown Non-blood Collection / Unknown 01/01/2025 8:03 AM EDT 01/01/2025 8:16 AM EDT us Rick Kumar MD LAB URINE ORDERABLES Final Res ult Performing Organization Address [facility] de Phone Number [facility] [address] [place] [address] * Urinalysis Microscopic Examination (01/01/2025 8:03 AM EDT) Urine Urine specimen obtained by clean catch procedure / Unknown Non-blood Collection / Unknown 01/01/2025 8:03 AM EDT 01/01/2025 8:06 AM EDT us Rick Kumar MD LAB URINE ORDERABLES Final Res ult Performing Organization Address City/[facility] Co de Phone Number [facility] [address] [place] [address] * (ABNORMAL) Urinalysis with reflex microscopic (Culture NOT Included) (01/01/2025 8:03 AM EDT) Color, Urine Yellow LAB URINALYSIS - AUTOMATED METHOD 01/01/2025 8:59 AM EDT [facility] Clarity, Urine Clear LAB URINALYSIS - AUTOMATED METHOD 01/01/2025 8:59 AM EDT [facility] Spec Roland, Urine >1.030(H) 1.005 - 1.030 LAB URINALYSIS - AUTOMATED METHOD 01/01/2025 8:59 AM EDT [facility] pH, Urine 6.0 5.0 - 8.0 LAB URINALYSIS - AUTOMATED METHOD 01/01/2025 8:59 AM EDT [facility] Protein, Urine 100(A) Negative mg/dL LAB URINALYSIS - AUTOMATED METHOD 01/01/2025 8:59 AM EDT [facility] Glucose, Urine Negative Negative mg/dL LAB URINALYSIS - AUTOMATED METHOD 01/01/2025 8:59 AM EDT [facility] Ketones, Urine Negative Negative mg/dL LAB URINALYSIS - AUTOMATED METHOD 01/01/2025 8:59 AM EDT [facility] Blood, Urine Trace(A) Negative LAB URINALYSIS - AUTOMATED METHOD 01/01/2025 8:59 AM EDT [facility] Bilirubin, Urine Negative Negative LAB URINALYSIS - AUTOMATED METHOD 01/01/2025 8:59 AM EDT [facility] Urobilinogen, Urine 1.0 0.2 to 1.0 mg/dL LAB URINALYSIS - AUTOMATED METHOD 01/01/2025 8:59 AM EDT [facility] Leukocytes, Urine Moderate(A) Negative LAB URINALYSIS - AUTOMATED METHOD 01/01/2025 8:59 AM EDT [facility] Nitrite, Urine Negative Negative LAB URINALYSIS - AUTOMATED METHOD 01/01/2025 8:59 AM EDT [facility] RBC, Urine 4 - 10(A) 0 to 3 /HPF LAB URINALYSIS - AUTOMATED METHOD 01/01/2025 8:59 AM EDT [facility] Comment:This result was prev iously suppressed from the chart. WBC, Urine >50(A) 0 to 5 /HPF LAB URINALYSIS - AUTOMATED METHOD 01/01/2025 8:59 AM EDT [facility] Comment:This result was prev iously suppressed from the chart. Squamous Epithelial Cells 0 - 2 0 to 5 /HPF LAB URINALYSIS - AUTOMATED METHOD 01/01/2025 8:59 AM EDT [facility] Comment:This result was prev iously suppressed from the chart. Hyaline Casts 0 - 2 0 to 5 /LPF LAB URINALYSIS - AUTOMATED METHOD 01/01/2025 8:59 AM EDT [facility] Comment:This result was prev iously suppressed from the chart. Bacteria, Urine Negative Negative LAB URINALYSIS - AUTOMATED METHOD 01/01/2025 8:59 AM EDT [facility] Comment:This result was prev iously suppressed from the chart. Yeast (Budding and/or Pseudohyphae) Present(A) Absent LAB URINALYSIS - AUTOMATED METHOD 01/01/2025 8:59 AM EDT [facility] Comment:This result was prev iously suppressed from the chart. Urine Urine specimen obtained by clean catch procedure / Unknown Non-blood Collection / Unknown 01/01/2025 8:03 AM EDT 01/01/2025 8:06 AM EDT Rick Kumar MD LAB URINE ORDERABLES Final Res ult Performing Organization Address [facility] Co de Phone Number [facility] [address] [place] [address] * Lactic acid, venous (01/01/2025 6:41 AM EDT) Pathologist [facility] Lactate, Venous, Whole Blood 1.0 0.5 - 2.2 mmol/L LAB HEMATOLOGY METHOD 01/01/2025 7:00 AM EDT [facility] Blood Venous blood specimen / Unknown Venipuncture / Unknown 01/01/2025 6:41 AM EDT 01/01/2025 6:58 AM EDT us Rick Kumar MD LAB BLOOD ORDERABLES Final Res ult Performing Organization Address City/[facility]/ZIP Co de Phone Number [facility] [address] [place] [address] * Blood Culture (Aerobic/Anaerobet Set) (01/01/2025 6:41 AM EDT) Only the most recent of2 resultswithin the time period is included. Culture No growth at day 5 01/06/2025 8:02 AM EDT [facility] Blood Structure of left forearm / Unknown Venipuncture / Unknown 01/01/2025 6:41 AM EDT 01/01/2025 7:12 AM EDT us Rick Kumar MD LAB MICROBIOLOGY - GENERAL ORD ERABLES Final Result [facility] [address] [place] [address] * (ABNORMAL) CBC w/diff (01/01/2025 6:41 AM EDT) Only the most recent of2 resultswithin the time period is included. WBC Count 18.66(H) 3.70 - 10.30 10*3/uL LAB HEMATOLOGY METHOD 01/01/2025 7:25 AM EDT [facility] RBC Count 3.84(L) 4.60 - 6.10 10*6/uL LAB HEMATOLOGY METHOD 01/01/2025 7:25 AM EDT [facility] HGB 12.1(L) 13.7 - 17.5 g/dL LAB HEMATOLOGY METHOD 01/01/2025 7:25 AM EDT [facility] HCT 35.6(L) 40.0 - 51.0 % LAB HEMATOLOGY METHOD 01/01/2025 7:25 AM EDT [facility] Platelet Count 260 155 - 369 10*3/uL LAB HEMATOLOGY METHOD 01/01/2025 7:25 AM EDT [facility] MCV 93 79 - 98 fL LAB HEMATOLOGY METHOD 01/01/2025 7:25 AM EDT [facility] MCH 31.5 26.0 - 32.0 pg LAB HEMATOLOGY METHOD 01/01/2025 7:25 AM EDT [facility] MCHC 34.0 30.7 - 35.5 g/dL LAB HEMATOLOGY METHOD 01/01/2025 7:25 AM EDT [facility] RDW 13.2 11.5 - 14.5 % LAB HEMATOLOGY METHOD 01/01/2025 7:25 AM EDT [facility] MPV 10.1 8.8 - 12.5 fL LAB HEMATOLOGY METHOD 01/01/2025 7:25 AM EDT [facility] nRBC 0.0 <=0.0 per 100 WBCs LAB HEMATOLOGY METHOD 01/01/2025 7:25 AM EDT [facility] Differential Type Automated LAB HEMATOLOGY METHOD 01/01/2025 7:25 AM EDT [facility] Neutrophils % 69 % LAB HEMATOLOGY METHOD 01/01/2025 7:25 AM EDT [facility] Lymphocytes % 17 % LAB HEMATOLOGY METHOD 01/01/2025 7:25 AM EDT [facility] Monocytes % 7 % LAB HEMATOLOGY METHOD 01/01/2025 7:25 AM EDT [facility] Eosinophils % 2 % LAB HEMATOLOGY METHOD 01/01/2025 7:25 AM EDT [facility] Basophils % 1 % LAB HEMATOLOGY METHOD 01/01/2025 7:25 AM EDT [facility] Immature Granulocytes % 4 % LAB HEMATOLOGY METHOD 01/01/2025 7:25 AM EDT [facility] Neutrophils Absolute 12.92(H) 1.60 - 6.10 10*3/uL LAB HEMATOLOGY METHOD 01/01/2025 7:25 AM EDT [facility] Lymphocytes Absolute 3.25 1.20 - 3.90 10*3/uL LAB HEMATOLOGY METHOD 01/01/2025 7:25 AM EDT [facility] Monocytes Absolute 1.27(H) 0.30 - 0.90 10*3/uL LAB HEMATOLOGY METHOD 01/01/2025 7:25 AM EDT [facility] Eosinophils Absolute 0.44 0.00 - 0.50 10*3/uL LAB HEMATOLOGY METHOD 01/01/2025 7:25 AM EDT [facility] Basophils Absolute 0.10 0.00 - 0.10 10*3/uL LAB HEMATOLOGY METHOD 01/01/2025 7:25 AM EDT [facility] Immature Granulocytes Absolute 0.68(H) 0.00 - 0.06 10*3/uL LAB HEMATOLOGY METHOD 01/01/2025 7:25 AM EDT [facility] Blood Venous blood specimen / Unknown Venipuncture / Unknown 01/01/2025 6:41 AM EDT 01/01/2025 6:54 AM EDT Narrative [facility] - 01/01/2025 7:25 AM EDT Therapeutic decision making should be based on absolute values, rather than percentages. us Rick Kumar MD LAB BLOOD ORDERABLES Final Res ult Performing Organization Address City/[facility]/ZIP Co de Phone Number [facility] [address] [place] [address] * Lipase (01/01/2025 6:41 AM EDT) Lipase, Plasma 27 19 - 63 U/L 01/01/2025 7:22 AM EDT [facility] Blood Venous blood specimen / Unknown Venipuncture / Unknown 01/01/2025 6:41 AM EDT 01/01/2025 6:54 AM EDT us Rick Kumar MD LAB BLOOD ORDERABLES Final Res ult [facility] [address] [place] [address] * (ABNORMAL) CMP (01/01/2025 6:41 AM EDT) Glucose, Plasma 114(H) 74 - 99 mg/dL 01/01/2025 7:22 AM EDT [facility] BUN, Plasma 14 8 - 23 mg/dL 01/01/2025 7:22 AM EDT [facility] Creatinine, Plasma 0.67(L) 0.70 - 1.20 mg/dL 01/01/2025 7:22 AM EDT [facility] BUN/Creatinine Ratio 21 01/01/2025 7:22 AM EDT [facility] Sodium, Plasma 136 136 - 145 mmol/L 01/01/2025 7:22 AM EDT [facility] Potassium, Plasma 4.0 3.6 - 4.9 mmol/L 01/01/2025 7:22 AM EDT [facility] Chloride, Plasma 100 97 - 107 mmol/L 01/01/2025 7:22 AM EDT [facility] CO2, Plasma 21(L) 22 - 29 mmol/L 01/01/2025 7:22 AM EDT [facility] Anion Gap 15 6 - 16 mmol/L 01/01/2025 7:22 AM EDT [facility] Total Calcium, Plasma 9.1 8.9 - 10.2 mg/dL 01/01/2025 7:22 AM EDT [facility] Total Protein 6.7 6.3 - 7.9 g/dL 01/01/2025 7:22 AM EDT [facility] Albumin, Plasma 3.4(L) 3.5 - 5.2 g/dL 01/01/2025 7:22 AM EDT [facility] AST, Plasma 17 10 - 50 U/L 01/01/2025 7:22 AM EDT [facility] ALT, Plasma 10 10 - 50 U/L 01/01/2025 7:22 AM EDT [facility] Alkaline Phosphatase, Plasma 62 40 - 115 U/L 01/01/2025 7:22 AM EDT [facility] Total Bilirubin, Plasma 0.4 0.2 - 1.1 mg/dL 01/01/2025 7:22 AM EDT [facility] eGFRcr 100.4 mL/min/1.7 3m*2 01/01/2025 7:22 AM EDT [facility] Comment:Reported eGFRcr in m L/min/1.73m2 is based the CKD-EPI 2020 equation that does not use a race coefficient. Blood Venous blood specimen / Unknown Venipuncture / Unknown 01/01/2025 6:41 AM EDT 01/01/2025 6:54 AM EDT us Rick Kumar MD LAB BLOOD ORDERABLES Final Res ult [facility] [address] [place] [address] * EKG now - STAT (adult) (01/01/2025 6:16 AM EDT) EKG DIAGNOSIS CLASS Abnormal MUSE ECG Ventricular Rate 82 BPM MUSE ECG Atrial Rate 82 BPM MUSE ECG NE Interval 128 ms MUSE ECG QRSD Interval 108 ms MUSE ECG QT Interval 368 ms MUSE ECG QTC Interval 429 ms MUSE ECG P [place] 8 degrees MUSE ECG R [place] 77 degrees MUSE ECG T Wave [place] -1 degrees MUSE ECG Diagnosis Normal sinus rhythm MUSE ECG Diagnosis Abnormal QRS-T angle, consider primary T wave abnormality MUSE ECG Diagnosis MUSE ECG Diagnosis MUSE ECG Diagnosis Confirmed by Delbert Carr ([id number]) on 01/01/2025 11:58:49 PM MUSE ECG 01/01/2025 6:16 AM EDT 01/01/2025 11:58 PM EDT Rick Kumar MD ECG ORDERABLES Final Result MUSE ECG * CT MSK OUTSIDE IMAGES (01/01/2025 12:07 AM EDT) Anatomical Region Laterality Modality Computed Tomogra phy 01/01/2025 12:0 7 AM EDT External Provider IMG CT PROCEDURES Final Result * [place] Cystogram (12/31/2024 2:22 PM EDT) Anatomical Region Laterality Modality Bladder Digital Radiogra phy Impressions 12/31/2024 4:28 PM EDT No extraluminal contrast to suggest a leak. CRITICAL RESULT: No. COMMUNICATION: Per this written report. By electronically signing this report, I, the attending physician, attest that I was present for the entire procedure(s) and agree with the final edited report. Drafted by RICKY Lane RT (R) on 12/31/2024 3:28 PM Final report signed by Andrew Boateng MD on 12/31/2024 4:28 PM Narrative 12/31/2024 4:28 PM EDT CLINICAL INDICATION: Evaluate for anastomotic leak after right ureteral reimplant TECHNIQUE: 125 mL of water soluble contrast was instilled into the urinary bladder using gravity drip technique per pre-existing Sung catheter.. Fluoroscopy Time: 0.7 minutes. COMPARISON: CT abdomen pelvis 12/24/2024 FINDINGS: Cold Water Machine Operator: There is a right ureteral stent present, appears well positioned. Bilateral total hip placement. Bladder: No extraluminal contrast to suggest a leak. No evidence of vesicoureteral reflux. No contrast refluxed up the right ureteral stent. No bladder filling defects. The luminal margin of the bladder dome is mildly irregular. Procedure Note Andrew Boateng MD - 12/31/2024 CLINICAL INDICATION: Evaluate for anastomotic leak after right ureteral reimplant TECHNIQUE: 125 mL of water soluble contrast was instilled into the urinary bladderusing gravity drip technique per pre-existing Sung catheter.. Fluoroscopy Time: 0.7 minutes. COMPARISON: CT abdomen pelvis 12/24/2024 FINDINGS: Cold Water Machine Operator: There is a right ureteral stent present, appears well positioned.Bilateral total hip placement. Bladder: No extraluminal contrast to suggest a leak. No evidence ofvesicoureteral reflux. No contrast refluxed up the right ureteral stent.No bladder filling defects. The luminal margin of the bladder dome ismildly irregular. IMPRESSION: No extraluminal contrast to suggest a leak. CRITICAL RESULT: No. COMMUNICATION: Per this written report. By electronically signing this report, I, the attending physician, attestthat I was present for the entire procedure(s) and agree with the finaledited report. Drafted by RICKY Lane RT (R) on 12/31/2024 3:28 PM Final report signed by Andrew Boateng MD on 12/31/2024 4:28 PM us Talib Serna MD IMG FLUOROSCOPY PROCEDURES Fin al Result * CT Abdomen Pelvis wo IV Contrast (12/24/2024 6:52 PM EDT) Anatomical Region Laterality Modality Abdomen, Pelvis Computed Tomogra phy Impressions 12/25/2024 11:34 AM EDT Small amount of intra and extraperitoneal hematoma, greatest in the space of Retzius and along the right pelvic sidewall. Extra and intraperitoneal free air and gas within a dilated right collecting system, not unexpected given recent surgical intervention. CRITICAL RESULT: No. COMMUNICATION: These findings were discussed via phone with TALIB SERNA on 12/25/2024 10:45 AM by Chadwick Bosch MD with acknowledgment of the results.. By electronically signing this report, I, the attending physician, attest that I have personally reviewed the images/data for the above examination(s) and agree with the final edited report. Drafted by Fela Bales DO on 12/25/2024 8:33 AM Final report signed by Chadwick Bosch MD on 12/25/2024 11:34 AM Narrative 12/25/2024 11:34 AM EDT CLINICAL INDICATION: Abdominal pain, post-op; history of right UPJ and distal ureteral obstruction status post right percutaneous nephrostomy tube placement on 12/05/2024 and right ureteral reimplantation on 12/22/2024 TECHNIQUE: Multiple axial CT images were obtained from lung bases through pubic symphysis without administration of IV contrast. Reformatted images in the coronal and sagittal planes were generated from the axial data set to facilitate diagnostic accuracy. Total DLP (Dose-Length Product): 253.12 mGy.cm. Please note: The reported value represents the total of one or more individual components during the CT acquisition on this date and at this time, and as such, the same value may appear in more than one CT report depending on the interpreting/reporting physicians. COMPARISON: 12/22/2024 intraoperative fluoroscopy, 12/04/[address] abdomen and pelvis FINDINGS: Lower Chest: No suspicious findings. Lack of intravenous contrast limits evaluation of solid abdominal organs. Liver, Gallbladder, Biliary Tract: Subcentimeter hypodensities within the liver, too small to characterize but statistically likely represent cysts. Unremarkable gallbladder. No bile duct dilatation. Spleen: Unremarkable. Pancreas: Unremarkable. Adrenal Glands: Unremarkable. Kidneys, ureters, bladder: Air within dilated right renal collecting system, consistent with history of recent intervention. Right double-J ureteral stent in place extending from the inferior collecting system to the pelvis, with limited evaluation of the distal most aspect secondary to significant hardware artifact. Air within the mitesh and pararenal spaces, consistent with recent intervention.. Unchanged benign simple renal cyst measuring up to 34 mm in the superior pole of the left kidney (series 3, image 76). No left hydronephrosis. Urinary catheter in place. Evaluation of the urinary bladder is limited secondary to below mentioned artifact. Pelvis: Intraperitoneal and extraperitoneal hematoma, greatest in the space of Retzius and along the right pelvic side wall. Limited evaluation of the pelvis secondary to significant streak artifact from bilateral hip arthroplasties. Lymph Nodes: No adenopathy by CT size criteria. Vasculature: Normal in caliber with moderate calcified plaque GI Tract: Large and small bowel are normal in caliber. Diverticulosis without diverticulitis. No pneumatosis. Small hiatal hernia. Mesentery/Peritoneum: Small amount of pneumoperitoneum consistent with recent intervention (series 3, image 47). Small amount of extraperitoneal air. Left lower quadrant abdominal drain in place terminating in the mid abdomen (series 3, image 168). Free Fluid: Intraperitoneal and extraperitoneal hematoma, as above. Musculoskeletal and Body Wall: No aggressive osseous or body wall lesion. Postoperative changes from prior percutaneous nephrostomy tube placement and recent right ureteral reimplantation. Multilevel degenerative changes of the spine, greatest at L5-S1. For bony mineralization. Bilateral total hip replacements with significant associated artifact limiting evaluation of the pelvis and adjacent soft tissues. Procedure Note Chadwick Bosch MD - 12/25/2024 CLINICAL INDICATION: Abdominal pain, post-op; history of right UPJ and distal ureteralobstruction status post right percutaneous nephrostomy tube placement on12/05/2024 and right ureteral reimplantation on 12/22/2024 TECHNIQUE: Multiple axial CT images were obtained from lung bases through pubicsymphysis without administration of IV contrast. Reformatted images in thecoronal and sagittal planes were generated from the axial data set tofacilitate diagnostic accuracy. Total DLP (Dose-Length Product): 253.12 mGy.cm. Please note: The reportedvalue represents the total of one or more individual components during theCT acquisition on this date and at this time, and as such, the same valuemay appear in more than one CT report depending on theinterpreting/reporting physicians. COMPARISON: 12/22/2024 intraoperative fluoroscopy, 12/04/[address] abdomen andpelvis FINDINGS: Lower Chest: No suspicious findings. Lack of intravenous contrast limits evaluation of solid abdominalorgans. Liver, Gallbladder, Biliary Tract: Subcentimeter hypodensities within theliver, too small to characterize but statistically likely represent cysts.Unremarkable gallbladder. No bile duct dilatation. Spleen: Unremarkable. Pancreas: Unremarkable. Adrenal Glands: Unremarkable. Kidneys, ureters, bladder: Air within dilated right renal collectingsystem, consistent with history of recent intervention. Right double-Jureteral stent in place extending from the inferior collecting system tothe pelvis, with limited evaluation of the distal most aspect secondary tosignificant hardware artifact. Air within the mitesh and pararenal spaces,consistent with recent intervention.. Unchanged benign simple renal cyst measuring up to 34 mm in the superiorpole of the left kidney (series 3, image 76). No left hydronephrosis.Urinary catheter in place. Evaluation of the urinary bladder is limitedsecondary to below mentioned artifact. Pelvis: Intraperitoneal and extraperitoneal hematoma, greatest in thespace of Retzius and along the right pelvic side wall. Limited evaluationof the pelvis secondary to significant streak artifact from bilateral hiparthroplasties. Lymph Nodes: No adenopathy by CT size criteria. Vasculature: Normal in caliber with moderate calcified plaque GI Tract: Large and small bowel are normal in caliber. Diverticulosiswithout diverticulitis. No pneumatosis. Small hiatal hernia. Mesentery/Peritoneum: Small amount of pneumoperitoneum consistent withrecent intervention (series 3, image 47). Small amount of extraperitonealair. Left lower quadrant abdominal drain in place terminating in the midabdomen (series 3, image 168). Free Fluid: Intraperitoneal and extraperitoneal hematoma, as above. Musculoskeletal and Body Wall: No aggressive osseous or body wall lesion.Postoperative changes from prior percutaneous nephrostomy tube placementand recent right ureteral reimplantation. Multilevel degenerative changesof the spine, greatest at L5-S1. For bony mineralization. Bilateral totalhip replacements with significant associated artifact limiting evaluationof the pelvis and adjacent soft tissues. IMPRESSION: Small amount of intra and extraperitoneal hematoma, greatest in the spaceof Retzius and along the right pelvic sidewall. Extra and intraperitoneal free air and gas within a dilated rightcollecting system, not unexpected given recent surgical intervention. CRITICAL RESULT: No. COMMUNICATION: These findings were discussed via phone with TALIB SERNA on :45 AM by Chadwick Bosch MD with acknowledgment of the results.. By electronically signing this report, I, the attending physician, attestthat I have personally reviewed the images/data for the aboveexamination(s) and agree with the final edited report. Drafted by Fela Bales DO on 12/25/2024 8:33 AM Final report signed by Chadwick Bosch MD on 12/25/2024 11:34 AM Talib Serna MD IMG CT PROCEDURES Final Result * FL Less than 1 Hour Intraoperative (12/22/2024 12:01 PM EDT) Only the most recent of2 resultswithin the time period is included. Narrative IMAGING - 12/22/2024 12:01 PM EDT Images were obtained for surgical purposes. See Talib Serna's surgical note in the patient's chart for the findings. Talib Serna MD IMG FLUOROSCOPY PROCEDURES Fin al Result IMAGING * NE AN ELECTIVE ENDOTRACHEAL AIRWAY, PB ANESTHESIA PLACEHOLDER (12/22/2024 7:52 AM EDT) Narrative Lesia Bustos CRNA, DNP - 12/22/2024 7:52 AM EDT Lesia Bustos CRNA, DNP 12/22/2024 8:54 AM Airway Date/Time: 12/22/2024 7:52 AM Reason: elective Airway not difficult General Information and Staff Patient location during procedure: OR ABRASIVE GRADER HELPER: Lesia Bustos CRNA, DNP Performed: ABRASIVE GRADER HELPER Patient Condition Indications for airway management: anesthesia Patient position: sniffing Final Airway Details Final airway type: endotracheal airway Successful airway: ETT Cuffed: yes Successful intubation technique: video laryngoscopy (glidescope) Adjuncts used in placement: intubating stylet Endotracheal tube insertion site: oral Blade: Jennifer Blade size: #4 ETT size (mm): 8.0 Cormack-Lehane Classification: grade IIa - partial view of glottis Placement verified by: chest auscultation and capnometry Measured from: lips ETT to lips (cm): 24 Additional Comments Atraumatic. No change to dentition. us Alfredo Harper MD ANESTHESIA ORDERABLES Edited Res ult - Final * NE AN ELECTIVE SUPRAGLOTTIC AIRWAY, PB ANESTHESIA PLACEHOLDER (12/15/2024 11:42 AM EDT) Narrative Gaston Morris MD - 12/15/2024 11:42 AM EDT Gaston Morris MD 12/15/2024 12:00 PM Airway Date/Time: 12/15/2024 11:42 AM Reason: elective Airway not difficult General Information and Staff Patient location during procedure: OR Anesthesiologist: Gaston Morris MD Performed: Anesthesiologist Patient Condition Indications for airway management: anesthesia Patient position: sniffing Planned trial extubation Final Airway Details Final airway type: LMALMA Size: 4 LMA Type: normal us Gaston Morris MD ANESTHESIA ORDERABLES Final Res ult * (ABNORMAL) Hepatitis C Antibody (04/10/2024 11:20 AM EDT) Hepatitis C Antibody Positive( A) Negative 04/10/2024 2:14 PM EDT [facility] Comment:This specimen is aleksandr ng sent for confirmation by RT-PCR. Blood Venous blood specimen / Unknown Venipuncture / Unknown 04/10/2024 11:20 AM EDT 04/10/2024 11:21 AM EDT Ryne Rodriguez MD LAB BLOOD ORDERABLES Fi nal Result [facility] [address] [place] [id number] from Last 3 Months or Most Recently Relevant to Health Maintenance Additional Health Concerns Active Problems Noted Date Diagnosed Date Autogenerated Problem 02/18/2025 Insurance MEDICARE [facility] Advance Directives * Full Code (Latest Code Status on File) Date Activated Date Inactivated Comments 01/01/2025 7:54 AM 01/02/2025 3:26 PM * Full Code Date Activated Date Inactivated Comments 12/22/2024 12:00 PM 12/25/2024 8:36 PM * Full Code Date Activated Date Inactivated Comments 12/04/2024 10:40 PM 12/09/2024 3:39 PM Question Answer Comments Patient has decision-making capacity? Yes Care Teams Restaurant Expeditor Relationship Specialty Start Date End Date Thiago Gregory, GILL BOX OPERATOR [address] [place] [address] PCP - General 03/20/24 Doug Bill, RN `````````````````````CH - PACU - MAJOR, PAV A Registered Nurse 12/23/24
--- OUTSIDE RECORDS SUMMARY | 2025-03-17 12:08 | XMS_ITS | Encounter Summary ---
Author Organization Healthcare Address [address] [place] [address] Care Team Providers Care Garment Turner Name Role Phone Thiago Gregory APRN Primary Care Provider [phone] Doug Bill RN Unavailable Unavailable Reason for Visit * Reason Onset Date Comments HCN - Patient Message 12/25/2024 Encounter Details Date Type Department Care Team (Late st Contact Info) Description 12/25/2024 Telephone [facility] [address] [place] [address] Talib Serna MD [address] [place] [address] HCN - Patient Message Social [...] time in the past 12 m [facility], were you homeless or living in a long-term (including now)? 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 Question Answer Date of Assessment Author Little interest or pleasure in doing things Not at all 12/31/2024 3:03 PM EDT Renetta Mann Feeling down, depressed, or hopeless Not at all 12/31/2024 3:03 PM EDT Renetta Mann Patient Health Questionnaire -2 Score 0 12/31/2024 3:03 PM EDT Renetta Mann * Calculated C-SSRS Risk Score (Lifetime/Recent) Answer Date of Assessment Author No Risk Indicated 01/02/2025 7:48 AM EDT Viridiana Melendez, RN * Question Answer Date of Assessment Author 1. Wish to be (Past 1 Month) No 025 7:48 AM EDT Viridiana Melendez, RN 2. Non-Specific Active Suici sena Thoughts (Past 1 Month) No 01/02/2025 7:48 AM EDT Viridiana Melendez, RN 6. Suicidal Behavior (Lifetime) No 7:48 AM EDT Viridiana Melendez, RN documented as of this encounter Miscellaneous Notes * Telephone Encounter - Buzz Thomas MD - 12/25/2024 4:34 PM EDT This was taken care of. * Telephone Encounter - Talib Connelly - 12/25/2024 3:38 PM EDT Patient Phone Message Reason for Call: Pt called as he is currently at [facility] awaiting discharge. Mentions that Dr. Serna said he would be ordering him a new bedside collection apparatus for his catheter as well as a leg bag but a nurse just informed him at the hospital that he couldn't have both. Calling to see what Dr. Serna could clarify. Please advise. Best contact number and optimal time of day to reach caller: [phone] - anytime Note: Please do not reply [...] Description 04/08/2025 9:10 AM EDT Office Visit [facility] [address] [place] [address] Mayi Ballard MBBS [address] [place] [address] 06/17/2025 12:00 PM EDT Appointment [facility] [address] [place] [address] 06/17/2025 1:30 PM EDT Office Visit Medical Office Building Urology [address] [facility], [address] [place] [address] Talib Serna MD [address] [place] [address] documented as of this encounter Visit Diagnoses Not on filedocumented in this encounter Additional Health Concerns Assessment Noted Time A fall risk assessment has been complete d for the patient 11/12/2024 12:59 PM EST A Body Mass Index follow-up plan has been documented for the patient 12/25/2024 4:39 PM EDT documented as of this encounter Care Teams Garment Turner Relationship Specialty Start Date End Date Thiago Gregory APRN [address] [place] [address] PCP - General 03/20/24 Doug Bill RN `````````````````````CH - PACU - MAJOR, PAV A Registered Nurse 12/23/24 documented as of this encounter
--- NOTE | 2025-03-17 12:18 | CT_ITS ---
FINAL REPORT TECHNIQUE: After the administration of intravenous contrast, axial images were obtained through the abdomen and pelvis by computed tomography. The study was performed with techniques to keep radiation dose as low as reasonably achievable, (ALARA). Individual dose reduction techniques using automated exposure control or adjustment of mA and/or kV according to the patient's size were employed. CLINICAL HISTORY: right sided abd pain, recent ureteral stent remove COMPARISON: 01/01/2025 FINDINGS: Abdomen: The lung bases are clear. The liver parenchyma is homogeneous. The gallbladder is present. The spleen, pancreas, and adrenal appear unremarkable. There is moderate right hydronephrosis. Large right extrarenal pelvis is noted. The previously noted right ureteral stent has been removed. There is extensive stranding in the right retroperitoneum. Fluid collection along the anterior margin of the right psoas muscle measures 3.5 x 2.8 cm, well seen on images 60-63 of series 3. There is loss of tissue in the plane between the fluid collection and the anterior margin of the right psoas muscle. Pelvis: The appendix is not identified. The urinary bladder is obscured. Streak artifact is noted from bilateral hip prostheses. IMPRESSION: Interval removal of right ureteral stent with interval development of right hydronephrosis and distended right renal pelvis. Extensive stranding right retroperitoneum with fluid collection which may represent urinoma or possibly developing retroperitoneal abscess. Careful clinical correlation recommended. Reviewed, Interpreted and Dictated by German Mckinney MD Transcribed by Ellyn Echols Authenticated and . [facility]
[2025-03-17] MEDS: ONDANSETRON 4MG/2ML VIAL 4 MG IV (12:25)
[2025-03-17] MEDS: LACTATED RINGERS 1000ML 1,000 ML 999 ML IV (12:25)
[2025-03-17] MEDS: ACETAMINOPHEN 1,000MG/100ML VIAL 1000 MG IV (12:25)
--- NOTE | 2025-03-17 12:31 | ED_ITS ---
Discharge Plan Disposition Patient Disposition: Xfer Other Prescriptions Prescriptions: No Action nitrofurantoin monohyd/m-cryst 100 mg capsule 100 mg PO Q12H 7 Days Qty: 14 0RF Rx Instructions: must administer with a meal/food tamsulosin 0.4 mg Capsule 0.8 mg PO HS 30 Days Qty: 60 0RF ondansetron HCl 4 mg tablet 4 mg PO Q8H PRN (Reason: nausea and vomiting) 5 Days Qty: 30 0RF diclofenac sodium 1 % gel 1 ea TOPICAL BID Referrals Follow up/Referrals: Thiago Gregory APRN [Primary Care Provider, Family Practice] - See instructions Clinical Impressions Clinical Impression: Right flank pain, Acute UTI, Post op infection Instructions Patient Instructions: DI for Urinary Tract Infection (UTI), DI for Urinary Tract Infection in Children Print Language Print Language: New Zealander Discharge ED Provider: Wisam Sands General Adult HPI General Chief complaint: Urogenital-Male Stated complaint: removal of urethral stint pain some unrination Time Seen by Provider: 03/17/25 12:07 Mode of Arrival: Ambulatory Source of Information: Patient Description of Symptoms (Recalled from ER Triage Doc. by RN): PT presents to the ED for evaluation of pain r/t stent removal 03/16/2025 at . PT describes the pain the the right back, pelvis, and groin. PT rates the pain as a constant 5/10 but has recently gotten worse with urination at a 7/10. Stated there was a small amount of blood in urine. PT taken Tylenol at 1030. PT has a hx of surgery r/t restrictions in the r ureter. History of Present Illness HPI narrative: Patient is a 70-year-old male presenting today with severe right sided abdominal and flank pain. 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 Patient had been doing well and followed up with Dr. Serna yesterday in clinic and had his stent removed. Since that time he had increased and severe right- sided flank back and abdominal pain. No fevers or chills but has had some pain at his urethral meatus which his surgeon told him was normal after his recent operation. Related Data Home Medications ?Medication ?Instructions ?Recorded ?Confirmed diclofenac sodium 1 % topical gel 1 ea topical BID 04/2302/12/25 Previous Rx's ?Medication ?Instructions ?Recorded tamsulosin 0.4 mg capsule 0.8 mg (2 x 0.4 mg) PO HS 30 days 09/30/24 #60 caps ondansetron HCl 4 mg tablet 4 mg PO Q8H PRN nausea and 12/02/24 vomiting 5 days #30 tabs nitrofurantoin 100 mg PO Q12H 7 days #14 ca ps 02/12/25 monohydrate/macrocrystals 100 mg capsule Allergies Allergy/AdvReac Type Severity Reaction Status Date / Time chocolate Allergy Other Verified 03/17/25 12:27 prochlorperazine (From Allergy Other Verified 02/12/25 13:00 Compazine) [facility] Disclaimer: The information contained in this section may have been updated after the patient was seen, as this information can be updated by other users. Medical History Hypertension Patient new to facility Contact dermatitis Joint pain Hypertensive encephalopathy syndrome Encephalopathy Subcutaneous nodule of left thumb Tobacco dependence due to cigarettes Pain of left thumb Heberden's nodes of left hand Poison rashida dermatitis Shoulder pain, bilateral Fatigue Hydronephrosis Elevated PSA Hep C w/o coma, chronic Surgical History H/O prostate biopsy History of hip replacement Social History Smoking Status: Never smoker second hand exposure: Yes alcohol intake: current substance use type: marijuana current occupational status: employed Travel in the last 8 weeks?: Inside the [place] household members: spouse housing: house current occupational exposures/hazards: No caffeine: Yes Have you lived/traveled outside US in past 30 days?: No Contact w/someone who lives/traveled outside US past 30 days?: No Exposure to someone with infectious disease in past 14 days?: No Do you have a fever (greater than 100.4 F or 38 C)?: No Have you tested positive for COVID-19?: No Exposed to someone with COVID-19 in past 14 days?: No Do you have a sore throat?: No Do you have a cough?: No Do you have any weakness?: No Do you have any diarrhea?: No Are you experiencing any unusual bleeding?: No Do you have any muscle aches/pain?: No Do you have any abdominal pain?: No Are you experiencing loss of taste or smell?: No Other Medical History Have you received the Flu Vaccine for this season: No Have you received the Pneumonia Vaccine: No ROS Obtained: Yes All systems reviewed & no additional complaints except as documented Physical Exam General General appearance: alert and in no apparent distress Respiratory Respiratory exam: Present normal lung sounds bilaterally Cardiovascular Cardiovascular exam: Present regular rate Abdominal Exam Abdominal exam: Present soft and tenderness (Diffusely tender abdomen with rebound) Back Exam Back exam: Present CVA tenderness (R) Neurological Exam Neurological exam: Present alert and oriented X3 Medical Decision Making Medical Records Screening: Per USPSTF and CDC recommendations, given the prevalence of disease in our region, it is our hospital?s policy to screen for HIV and viral Hepatitis for all patients aged 18 and over and those with ongoing risk factors. Pérez Inquiry Pt receiving controlled substance: No Vital Signs: 03/17/25 12:07 03/17/25 13:00 03/17/25 14:00 Temperature 98.4 F Temperature Source Oral Pulse Rate 82 80 Pulse Rate [Right] 91 H Respiratory Rate 18 18 Blood Pressure 162/99 H 138/89 Blood Pressure [Right Arm] 169/103 H Blood Pressure Mean 107 Blood Pressure Mean [Right Arm] 125 02 Sat by Pulse Oximetry 98 98 98 Oxygen Delivery Method Room Air Room Air Lab Data Lab results reviewed: Yes I reviewed the patient's lab results. Lab Results 03/17/25 12:43: WBC 15.1 H, RBC 4.82, Hgb 14.6, Hct 43.4, MCV 90.0, MCH 30.3, MCHC 33.6, RDW 13.1, Plt Count 209, MPV 10.6 H, Neut % (Auto) 76.8, Lymph % (Auto) 12.2, [place] % (Auto) 9.6 H, Eos % (Auto) 0.9, Baso % (Auto) 0.2, Neut # (Auto) 11.6 H, Lymph # (Auto) 1.9, [place] # (Auto) 1.5 H, Eos # (Auto) 0.1, Baso # (Auto) 0.0, Sodium 137, Potassium 4.5, Chloride 104, Carbon Dioxide 29, Anion Gap 8.5, BUN 16, Creatinine 0.80, Estimated Creat Clear 65, Estimated GFR 95, Est GFR ( Amer) 115, Glucose 122 H, Calcium 9.5, Total Bilirubin 0.7, AST 25, ALT 18, Alkaline Phosphatase 69, Total Protein 7.9, Albumin 4.2, Globulin 3.7 H, Albumin/Globulin Ratio 1.1, Lipase 80, Urine Color Yellow, Urine Appearance Sl cloudy, Urine pH 6.0, Ur Specific [place] 1.015, Urine Protein Trace, Urine Glucose (UA) Negative, Urine Ketones Trace, Urine Blood 2+ A, Urine Nitrate Negative, Urine Bilirubin Negative, Urine Urobilinogen 0.2, Ur Leukocyte Esterase 2+ A 03/17/25 12:43 03/17/25 12:43 Orders (Tests/Meds): ED MEDICATIONS Generic Name Dose Route Start Last Admin Trade Name Freq PRN Reason Stop Dose Admin Ceftriaxone Sodium 1 gm/ 50 mls @ 100 mls/hr 03/17/25 14:20 Sodium Chloride IV 03/17/25 14:49 ONCE ONE Discontinued Medications Generic Name Dose Route Start Last Admin Trade Name Freq PRN Reason Stop Dose Admin Acetaminophen 1,000 mg 03/17/25 12:18 03/17/25 12:25 Acetaminophen 1,000mg/100ml Vial IV 03/17/25 12:19 1,000 mg ONCE ONE Administration Lactated Ringer's 1,000 mls @ 999 mls/hr 03/17/25 12:30 03/17/25 12:25 Lactated Ringer's 1000 Ml Bag IV 03/17/25 13:30 999 mls/hr .Q1H1M ELIZABETH Administration Iopamidol 75 ml 03/17/25 13:47 03/17/25 13:49 Iopamidol-370 (76%);100ml Bottle IV 03/17/25 13:48 75 ml ONCE ONE Administration Ondansetron HCl 4 mg 03/17/25 12:18 03/17/25 12:25 Ondansetron 4mg/2ml Vial IV 03/17/25 12:19 4 mg ONCE ONE Administration Sodium Chloride 10 ml 03/17/25 13:47 03/17/25 13:49 Sodium Chloride 0.9% 10ml Syr (Rad Only) IV 03/17/25 13:48 10 ml ONCE ONE Administration ORDERS Category Date Time Status CT abdomen pelvis w con Stat Cat Scan 03/17/25 12:[address] abdomen pelvis wo con Stat Cat Scan 03/17/25 14:20 Ordered CBC w/Auto Diff [Complete Blood Count Auto Diff] Stat Lab 03/17/25 12:43 Completed CMP [Comprehensive Metabolic Panel] Stat Lab 03/17/25 12:43 Completed Lipase Stat Lab 03/17/25 12:43 Completed UA [Urinalysis and Microscopic] Stat Lab 03/17/25 12:43 Results Blood Culture Stat Micro 03/17/25 14:20 Ordered Urine Culture Stat Micro 03/17/25 12:43 Received Medical Decision Narrative: 70-year-old male with above history and physical. Patient had extensive urologic complications requiring multiple recent surgeries and had a stent that was removed yesterday. Has severe pain including CVA and anterior abdominal pain. Differential includes intra-abdominal abscess bleeding bowel obstruction perforation urinary obstruction etc. Contrasted CT scan has been ordered in addition to basic blood work and urinalysis. Patient specifically requested not to be given opiate pain medications therefore Tylenol has been given in addition to IV fluids. Patient surgeon Dr. Serna is aware that the patient is here and the patient actually just got the phone with him. I will likely discuss the case with his surgical team once his workup is complete. Reassessment 2:[address] scans performed I personally interpreted which shows severe hydronephrosis also some intra-abdominal free fluid particular around the ureter. I was able to speak to Dr. Serna and Dr. Suarez at the [facility]. Patient also has a white blood cell count of 15 and 2+ leukocyte esterase micro is pending. Will go ahead and order blood cultures and treat with Rocephin. Dr. Serna reviewed the images and asked for specifically a delayed CT which we will get a noncontrasted CT scan to see if the contrast is extravasating outside of the collecting system. Given the fact the patient has significant tenderness on exam and possible infection they wanted to see the patient in person and emergency contact and patient was accepted by Dr. Suarez to [place] emergency department. Patient will be traveling by private vehicle. Has been given a disc with images including the most recent CT scan and other scans will be power shared after this CT is performed. Critical Care Critical Care Time Critical Care Time: Yes Attestation: On 03/17/25, the high probability of a clinically significant, sudden or life threatening deterioration of the following system(s) required my full and direct attention, intervention and personal management. The time I documented below is in addition to time spent performing reported procedures but includes the following listed in this critical care notation. Total Time Total Critical Care Time: 35
[2025-03-17 12:54] LABS: Basophils % 0.2 % (0.1-2.0); Eosinophils # 0.1 Kmm3 (0.0-0.4); Eosinophils % 0.9 % (0.1-12.0); Hematocrit 43.4 % (42.0-52.0); Hemoglobin 14.6 g/dL (14.1-18.0); Immature Granulocytes # 0.05 10^3uL; Immature Granulocytes % 0.3 %; Lymphocytes # 1.9 K/mm3 (0.7-4.5); Lymphocytes % 12.2 % (10-50); Mean Corpuscular HGB Conc 33.6 g/dL (31.8-35.4); Mean Corpuscular Hemoglobin 30.3 pg (27.0-31.2); Mean Platelet Volume 10.6 fl (7.4-10.4); Monocytes # 1.5 K/mm3 (0.1-1.0); Monocytes % 9.6 % (1.7-9.3); Neutrophils # 11.6 K/mm3 (1.8-7.8); Neutrophils % 76.8 % (37.0-80.0); Nucleated Red Blood Cells # 0 10^3/uL; Nucleated Red Blood Cells % 0 %; Platelet Count 209 K/mm3 (142-424); Red Blood Count 4.82 M/mm3 (4.60-6.20); Red Cell Distribution Width 13.1 % (11.5-17.5); Red Cell Distribution Width-SD 43.2 fL; White Blood Count 15.1 K/mm3 (4.8-10.8)
[2025-03-17 13:00] VITALS: BP 162/99; PULSE 82; O2SAT 98
[2025-03-17 13:06] LABS: Albumin Level 4.2 g/dl (3.5-5.0); Chloride 104 mmol/L (98-107); Potassium 4.5 mmoL/L (3.5-5.1); Sodium 137 mmol/L (136-145)
[2025-03-17 13:09] LABS: Alanine Aminotransferase 18 U/L (12-78); Albumin/Globulin Ratio 1.1 (1.1-1.8); Alkaline Phosphatase 69 U/L (38-126); Anion Gap 8.5 mEq/L (5-15); Aspartate Amino Transferase 25 U/L (17-59); Bilirubin,Total 0.7 mg/dl (0.2-1.3); Blood Urea Nitrogen 16 mg/dl (9-20); Calcium 9.5 mg/dl (8.4-10.2); Carbon Dioxide 29 mmol/L (22.0-30.0); Creatinine Clearance Estimated 65 mL/min (50-200); Estimated Glomerular Filt Rate 95 ml/min (>60); GFR (African American) 115 ML/MIN (>60); Globulin 3.7 g/dL (1.3-3.2); Glucose 122 mg/dl (74-100); Lipase 80 U/L (23-300); Total Protein,Serum 7.9 g/dl (6.3-8.2)
[2025-03-17 13:12] LABS: Microscopic, Urine URINE MICROSCOPIC (MICROSCOPIC)
[2025-03-17 13:15] LABS: Appearance,Urine SL CLOUDY (Clear); Bilirubin,Urine Negative (Negative); Blood, Urine 2+ (Negative); Color,Urine YELLOW (Yellow); Glucose,Urine (UA) Negative (Negative); Ketones,Urine TRACE (Negative); Leukocyte Esterase,Urine 2+ (Negative); Nitrate,Urine Negative (Negative); Protein,Urine TRACE (Negative); Specific Gravity, Urine 1.015 (1.005-1.030); Urobilinogen,Urine 0.2 EU/dl (0.2)
[2025-03-17] MEDS: IOPAMIDOL-370 (76%);100ML BOTTLE 75 ML IV (13:49)
[2025-03-17] MEDS: SODIUM CHLORIDE 0.9% 10ML SYR (RAD ONLY) 10 ML IV (13:49)
--- NOTE | 2025-03-17 13:58 | PC.NURSE ---
called [facility] per Dr Sands to speak with Dr Serna. currently awaiting call back from Dr Serna
[2025-03-17 14:00] VITALS: BP 138/89; PULSE 80; RESP 18; O2SAT 98
--- NOTE | 2025-03-17 14:12 | PC.NURSE ---
Dr Sands on phone with at this time
--- NOTE | 2025-03-17 14:20 | CT_ITS ---
FINAL REPORT TECHNIQUE: Axial images through the abdomen and pelvis were performed without contrast. This study was performed with techniques to keep radiation doses as low as reasonably achievable, (ALARA). Individualized dose reduction techniques using automated exposure control or adjustment of mA and/or kV according to the patient's size were employed. CLINICAL HISTORY: f/u study per urologist COMPARISON: 03/17/2025 FINDINGS: Abdomen: Late delayed images were obtained. The lung bases are clear. The liver parenchyma is homogeneous. The gallbladder is present. The spleen, pancreas, adrenals and kidneys are unremarkable. There is marked right hydronephrosis. There is a distended right renal pelvis. Multiple filling defects are noted within the right renal pelvis, favored to represent clot. There is contrast communicating with the fluid collection previously described along the anterior margin of the right psoas muscle consistent with a urinoma. The distal right ureter is not opacified. The left collecting system appears unremarkable. Pelvis: There is contrast in the urinary bladder. The appendix is not visualized. There is no pelvic mass or inflammation. IMPRESSION: High-grade right hydronephrosis with presumed clots in the right renal pelvis. 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 Reviewed, Interpreted and Dictated by German Mckinney MD Transcribed by Patience Joyce Authenticated and [facility]
--- NOTE | 2025-03-17 14:22 | PC.NURSE ---
Called Radiology per Dr Sands to run this pt thru ct scanner again and [facility]hare it to [facility].
--- NOTE | 2025-03-17 14:32 | PC.NURSE ---
Report called to [facility] ER at [phone]
[2025-03-17 14:39] VITALS: BP 155/87; PULSE 77; RESP 18; O2SAT 98
[2025-03-17 14:48] LABS: Bacteria,Urine Trace /lpf; Squamous Epithelial Cell,Urine Occasional #/hpf (0-5); WBC,Urine TNTC #/hpf (0-3)
--- NOTE | 2025-03-17 14:59 | PC.NURSE ---
Called for [facility] for transport to ER [phone]
--- NOTE | 2025-03-17 15:01 | PC.NURSE ---
[facility] ER was called with update that patient is now transporting via [facility].
[2025-03-17] MEDS: CEFTRIAXONE SODIUM 1 GM in 0.9 % SODIUM CHLORIDE 50 ML IV (15:05)
[2025-03-17 15:25] VITALS: BP 149/88; PULSE 88; RESP 18; O2SAT 99
[2025-03-17 15:53] VITALS: BP 145/90; PULSE 87; RESP 18; TEMP 36.8; O2SAT 97
== END 2025-03-17 15:55 | disposition other institution (70) ==
PROVIDERS: Emergency Provider Student in an Organized Health Care Education/Training Program; PCP Nurse Practitioner Family
DX: R10.0 Acute abdomen (principal); N13.30 Unspecified hydronephrosis; N39.0 Urinary tract infection, site not specified; T81.40XA Infection following a procedure, unspecified, initial encounter; Z87.442 Personal history of urinary calculi
CPT/HCPCS: 74176; 74177; 80053; 81001; 83690; 85025; 87040; 87086; 96361; 96365; 96375; 99291; J0131; J0696; J2405; J7120; Q9967

== ENCOUNTER 2025-04-15 14:41 | Outpatient (CLI) | payer MEDICARE, OTHER, SELFPAY ==
--- OUTSIDE RECORDS SUMMARY | 2025-02-17 05:24 | XMS_ITS | Encounter Summary ---
Author Organization Healthcare Address [address] [id number] Care Team Providers Care Tagman Name Role Phone Thiago Gregory APRN Primary Care Provider [phone] Doug Bill RN Unavailable Unavailable Reason for Visit * Auth/Cert (Routine) Specialty Diagnoses / Procedures Referred By Contac t Referred To Contact Diagnoses Hydronephrosis, right hydronephrosis of right kidney Procedures KS LAP,PYELOPLASTY PYELOPLASTY, ROBOT-ASSISTED, USING DA COLE XI Talib Serna MD [address] [address] Phone: tel: fax: [facility]ATING RO[facility] [address] [place] [address] Phone: tel: Referral ID Status Reason Start Date Expiration Date Visits Re quested Visits Authorized [id number] 1 1 Encounter Details Date Type Department Care Team (Latest Contact Info) Description 02/17/2025 5:24 AM EDT - 02/20/2025 3:18 PM EDT Hospital Encounter [facility] H Inpatient [address] [place] [address] Talib Serna MD [address] [address] Hydronephrosis, right Discharge Disposition: Home [...] any time in the past 12 m [facility], were you homeless or living in a usp (including now)? No 12/07/2024 CAGE ASSESSMENT Answer [...] drink first t nigel in the morning ([employer]IVERY [employer]IVER) to steady your nerves or to get rid of a hangover? 0 01/01/2025 CAGE Questionnaire Score 0 025 Utilities Answer Date Recorded In the past 12 months has th e SLID, gas, oil, or water [employer] threatened to shut off services in your [...] No 025 8:00 PM EDT Chani Schwab, FARTUN 2. Non-Specific Active Suici sena Thoughts (Past 1 Month) No 02/19/2025 8:00 PM EDT Bianka Schwab RN 6. Suicidal Behavior (Lifetime) No 8:00 PM EDT Chani Schwab, RN documented as of this encounter Discharge Instructions * Discharge Instructions* Nikhil, Mattie A, MD - 02/20/2025 10:45 AM EDT Medications: [...] location ahead of your appointment) [facility] at [facility] [address], [address]nd Floor, Wing [address], [address] [place] [address] Clinic After Hours [facility] Office Building Urology Clinic [address] [place] [address] Clinic After Hours [facility] Clinic [address] 1st [place] [address] Clinic documented in this encounter Medications at Time of Discharge methocarbamol (Robaxin) 500 MG tablet Take 1 [...] up to 5 doses. 5 tablet 02/20/2025 tamsulosin (Flomax) 0.4 MG 24 hr capsule [...] directed by . 5 patch 02/20/2025 5 phenazopyridine (Pyridium) 200 MG tablet Take 1 tablet by mouth 3 times a day as needed for pain, discomfort or irritation. 20 tablet 02/20/2025 5 senna-docusate sodium (Senokot-S) 8.6-50 MG tablet Take 1 tablet by mouth daily. 30 tablet 02/20/2025 5 colchicine (Colcrys) 0.6 MG tablet Take 1 tablet by mouth 2 times a day. 5 documented as of this encounter Miscellaneous Notes * Chadwick Tucker RN - 02/20/2025 1:44 PM EDT Images from the original note were not included. [address] Pyeloplasty The ureters are the two tubes [...] medicines you take. This includes prescription and user-hon-fctymxs medicines, vitamins, herbs, and supplements. You may [...] surgery, you?re given general anesthesia. This medicine puts you into a deep sleep-like state through the [...] Risks of anesthesia (the anesthesiologist or nurse alarm investigator will discuss these with you) Last Reviewed Date: 2022 00:00:00 ?? [id number] The [employer]. All rights reserved. This information is not [...] Serna MD PCP name and Address: Thiago rGegory APRN [address] [place] [address] / [address] [address] Referring provider name and address: No referring [...] Your Medications These medications were sent to [facility] - [place], [place] - [address] [facility] [address] acetaminophen 500 MG tablet lidocaine 5 % [...] location ahead of your appointment) [facility] at [facility] [address] [facility], [facility], [address] [place] [address] Clinic After Hours [facility] Office Building Urology Clinic [address] [facility] [place] [address] Clinic After Hours [facility] Mult[facility]isciplinary [facility]rology Clinic [address]st [place] [address] Clinic Outpatient Follow-Up Future Appointments Date Time Provider Department Center 04/08/2025 9:10 AM Mayi Ballard MBBS [facility] Test Results Pending At Discharge None Pertinent Physical Exam At Time of Discharge GEN: NAD HEENT: NCAT, EOMI RESP: Equal bilateral chest rise, normal work of breathing CV: Regular rate, appears well perfused ABD: Nondistended, ANAM drain with SSO removed by Dr. Dominique : Sung catheter in place draining clear [...] this discharge. Mattie Tejeda MD Msc Urology PGY-8 Cosigned by Zenaida Friend MD at 02/20/2025 [...] - 02/19/2025 8:01 AM EDT [facility] Inpatient Progress Note Primary Attending: Talib [...] Type: Bulb Size (Fr.): 15 Fr. Drain [place] Size (mL): 100 mL Urethral Catheter Non-latex [...] Stewart MD General Surgery Preliminary PGY1 Pager: [phone] Department of Urology Cosigned by Talib Serna MD at 03/01/2025 9:11 AM EDT * Care Plan - Chani Schwab RN - 02/19/2025 5:40 AM EDT Problem: Adult Inpatient Plan of Care Goal: Plan of Care Review Outcome: Ongoing, Progressing Flowsheets (Taken 02/19/2025 0540) Progress: improving Plan of Care Reviewed With: [...] - 02/18/2025 7:46 AM EDT [facility] In[facility] Progress Note Primary Attending: Talib [...] recorded. I/O last 3 completed shifts: In: 2004.3 (29.5 mL/kg) [P.O.:50; I.V.:1901.3 (27.9 mL/kg); IV Piggyback:54] Out: 1435 (21.1 mL/kg) [Urine:1305 (0.5 mL/kg/hr); Drains:130] Weight: 68 kg Closed/Suction Drain Superior;Medial Abdomen Bulb 15 Fr. (Active) Placement Date/Time: 02/17/25 1320 Inserted by: Dr. Serna Orientation: Superior;Medial Location: Abdomen Drain Tube Type: Bulb Size (Fr.): 15 Fr. Drain [place]aine Size (mL): 100 mL Urethral Catheter Non-latex [...] to 50 - continue to trend labs, Cr Taylor Stewart MD General Surgery Preliminary PGY1 Pager: [phone] Department of Urology Cosigned by Talib Serna [...] Review Outcome: Ongoing, Progressing Flowsheets (Taken 02/18/2025 044) Plan of Care Reviewed With: patient Goal: [...] Agree with above assessment and evaluation from resident/CANVAS CUTTER MACHINE. * Op Note - Talib Serna MD - 02/17/2025 8:59 AM EDT Operative Note Date: 02/17/25 Location: [facility] OR Name: Parth Pratt, : 1955, Diagnoses: Pre-op Diagnosis Hydronephrosis, right Post-op Diagnosis Hydronephrosis, right Procedure(s): Cystoscopy with right ureteral stent exchange Right diagnostic ureteroscopy Right robot assisted laparoscopic pyeloplasty Attending Surgeon(s): * Talib Serna - Primary Crabbing Machine Operator(s): * Corrie Estevez MD - Resident - Assisting Anesthesia: General ASA: III Blood Administration: Blood Product Administration History None Drains: Closed/Suction Drain Superior;Medial Abdomen Bulb 15 Fr. (Active) Site Description Clean;Dry 02/17/25 1515 Dressing Status Old drainage;Intact;Clean 02/17/25 1655 Drainage Appearance Bright red 02/17/25 1655 Status Suction-low intermittent 02/17/25 1655 Output (mL) 90 mL 02/17/25 1655 Urethral Catheter Non-latex 16 Fr. (Active) Site [...] URETERAL DOUBLE PIGTAIL POS 6FR 22CM - [id number] - [id number] Implanted [id number] Specimen: Specimens ID Source Frozen? 1 Other [...] stent was then removed and a 5 Prydeinig ureteral catheter was placed over the wire. Sung catheter was placed into the bladder alongside it. Veress needle was used to access the peritoneum in the right upper quadrant. After appropriate water test, the abdomen was insufflated. Four robot trocars were placed roughly along the midclavicular line. 5 mm graduate assistant athletic trainer portwas placed below the umbilicus. There was some insufflation the retroperitoneum noted. Monopolar scissors were used to reflect the colon medially after the robot was docked. We identified the ureter and mobilized it up toward the kidney. Gonadal vessels were swept medially. There was significant inflammation around the proximal ureter and ureteropelvic junction. The Sung catheter and 5 Prydeinig ureteral catheter were removed and flexible ureteral [...] and the scope was withdrawn. A 6 Prydeinig by22 cm double-J ureteral stent was then passed over the wire and positioned within the right renal pe lvis. Good distal curl was confirmed with the cystoscope. The Sung catheter was replaced. We completed the interrupted anastomosis with good tissue approximation. Vistaseal was applied. A 15 Prydeinig drain was placed through the lowest trocar [...] Results Contains abnormal data Urine Culture Order: [id number] - Reflex for Order [id number] Collected 01/01/2025 08:03 Status: Final result Test Result Released: Yes (not seen) Specimen Information: Urine, Clean Catch 0 Result Notes Culture 10,000 - 100,000 CFU/mL Lucie albicans Abnormal This result was determined by MALDI tof Mass spectrometry. This assay was developed and its performance characteristics determined by [facility] as appropriate for clinical purposes. [...] Onset Hyperthyroidism Sister Malig Hyperthermia Neg Hx [3] Social History Tobacco [...] History: Procedure Laterality Date COLONOSCOPY CYSTOSCOPY 12/15/2024 ([facility]) cystosopy, ANTEGRADE URETEROSCOPY, right nephrostomy tube exchange (Ureter) URETEROSCOPY (Right) INSERTION OR REPLACEMENT, NEPHROSTOMY TUBE (Right) HIP ARTHROPLASTY Bilateral HIP SURGERY Right to replace recalled loli device KIDNEY STONE SURGERY LIVER BIOPSY NEPHROSTOMY 12/04/2024 ([facility]) INSERTION OR REPLACEMENT, NEPHROSTOMY TUBE (Right) PROSTATE BIOPSY SHOULDER SURGERY Left cadaver tendon placed in shoulder TONSILLECTOMY UPPER GASTROINTESTINAL ENDOSCOPY URETEROSCOPY 11/30/2024 ([facility]) URETEROSCOPY, RIGHT RETROGRADE (Right) CYSTOSCOPY (Bladder) [5] [...] card, photo ID, along with power of sugar coating hand, guardianship or advanced directives if applicable Do not bring money, jewelry or other valuables Hibiclens bathing instructions reviewed if applicable Notify surgeon of fever, illness, any changes or if you decide not to have surgery documented in this encounter Plan of Treatment Upcoming Encounters Date Type Department Care Team (Latest Contact Info) Description 04/29/2025 9:00 AM EDT Office Visit Medical Office Building Urology [address] [facility], [address] [place] [address] Talib Serna MD [address] [address] 05/17/2025 10:35 AM EDT Hospital Encounter [facility]ATING RO[facility] [address] [place] [address] Talib Serna MD [address] [address] 05/17/2025 10:35 AM EDT - 05/17/2025 12:05 PM EDT Surgery [facility]PERATING RO[facility] [address] [place] [address] Talib Serna MD [address] [address] URETEROSCOPY, WITH BIOPSY WITH POSSIBLE R URETERAL STENT EXCHANGE [08757 (CPT )] 06/17/2025 12:00 PM EDT Appointment [facility] [address]nd [place] [address] 06/17/2025 1:30 PM EDT Office Visit Medical Office Building Urology [address] [facility], [address] [place] [address] Talib Senra MD [address] [address] 10/21/2025 11:00 AM EST [facility] [address], [address] [place] [address] Mayi Ballard MD [address] [place] [address] Scheduled Procedures Name Priority Associated Diagnoses Date/Ti me URETEROSCOPY, WITH BIOPSY Ureteropelvic junction (UPJ) obstruction, right 05/17/2025 10:35 AM EDT documented as of this encounter Procedures Procedure [...] Routine 02/17/2025 9:00 AM EDT Hydronephrosis, right KS LAP,PYELOPLASTY 02/17/2025 8: 05 AM EDT Hydronephrosis, [...] following split bolus administration of IV contrast, [id number], 150 mL. Reformatted images in the coronal [...] signing this report, I, the attending physician, shante I have personally reviewed the images/data for [...] [facility] [address] [place] [address] * (ABNORMAL) Hemogram (CBC) (02/20/2025 4:13 AM [...] ult [facility] [address] [place] [address] * (ABNORMAL) Basic metabolic panel (02/19/2025 4:38 AM EDT) Glucose, Plasma 105(H) 74 - 99 mg/dL [...] [facility] [address] [place] [address] * (ABNORMAL) Hemogram (CBC) (02/19/2025 4:38 AM EDT) WBC Count 13.20(H) 3.70 - 10.30 10*3/uL [...] ult [facility] [address] [place] [address] * (ABNORMAL) Basic metabolic panel (02/18/2025 4:18 AM EDT) Glucose, Plasma 105(H) 74 - 99 mg/dL [...] ult [facility] [address] [place] [address] * (ABNORMAL) Hemogram (CBC) (02/18/2025 4:18 AM EDT) WBC Count 14.14(H) 3.70 - 10.30 10*3/uL [...] ult [facility] [address] [place] [address] * (ABNORMAL) Basic metabolic panel (02/17/2025 4:37 [...] ult [facility] [address] [place] [address] * (ABNORMAL) CBC W/O Differential (02/17/2025 4:37 [...] ult [facility] [address] [place] [address] * Surgical Pathology Exam (02/17/2025 1:42 PM EDT) Case Report Surgical Pathology Case: [id number] Authorizing Provider: Talib Serna MD Collected: 02/17/2025 1342 Ordering Location: [facility] A OPERATING ROOM Received: 02/17/2025 1427 Pathologist: [...] diagnosis or interpretation. 02/19/2025 11:07 AM EDT [facility] Tissue Topography unknown / Unknown 02/17/2025 1:42 PM EDT 02/17/2025 2:27 PM EDT Comment:Pre-op diagnosis: hydronephrosis of right kidney Talib Serna MD LAB PATHOLOGY ORDERABLES Final Result Performing Organization Address [facility]/ZIP Co de Phone Number [facility] [address] [place] [address] * (ABNORMAL) Urine Culture (02/17/2025 9:00 AM EDT) Culture 1,000 - 10,000 CFU/mL Lucie albicans(A) 02/19/2025 1:01 PM EDT [facility] Comment: This result was determined by MALDI tof Mass spectrometry. This assay was developed and its performance characteristics determined by [facility] as appropriate for clinical purposes. [...] ORD ERABLES Final Result Performing Organization Address City/[facility]/ZIP Co de Phone Number [facility] [address] [place] [address] * Type and Screen (02/17/2025 6:48 AM [...] TEST ORDERABLES Final Result Performing Organization Address City/State/[facility] Co de Phone Number BLOOD BANK [address] [place] [address], documented in this encounter Visit Diagnoses Diagnosis Ureteropelvic junction (UPJ) obstruction, right- Primary Hydronephrosis, right Hydronephrosis UPJ (ureteropelvic junction) obstruction Other ureteric obstruction Ureteropelvic junction (UPJ) obstruction, right documented in this encounter Admitting Diagnoses Diagnosis [...] PRN, Starting on Sat02/19/25 at 0423, Until Sat02/20/25 at 1718, Routine, high blood pressure HYDROmorphone [...] Until 02/20/25 at 1718, Routine, vomiting, nausea Given 02/19/2025 [...] at 1345, STAT 1406 (Given - Provider: Usjer Alcaraz RN) lidocaine (Lidoderm) 5 % patch [...] Until Discontinued, Routine 0839 (Given - Provider: aDvid David RN)1455 (Given - Provider: David David RN)1758 (Given - Provider: Abbey Ji LPN)2134 (Given - Provider: Chani Schwab RN) 0836 (Given - Provider: Jose Alcaraz RN)1408 (Given - Provider: Jose Alcaraz RN)1707 (Given - Provider: Jose Alcaraz RN)2136 (Given - Provider: Chani Schwab RN) 0804 (Given - Provider: Chani Schwab RN)1235 (Given - Provider: Chadwick Alvarez RN) mupirocin (Bactroban) 2 % ointment 1 Application Each Nostril, 2 times daily, 10 doses, First dose on Sat02/17/25 at 2215, Last dose on Sat02/22/25 at 0900, Routine 0839 (Given - Provider: David David RN)2134 [...] Schwab RN) 0836 (Given - Provider: Jose Alcaraz, FARTUN)2135 (Given - Provider: Chani Schwab RN) 0804 (Given - Provider: Chani Schwab RN) tamsulosin (Flomax) 24 hr capsule 0.4 mg 0.4 mg, Oral, Daily, First dose on Sat02/17/25 at 1700, Until Discontinued, Routine, Recovery(Phase II-Outpatient)/On Unit(Inpatient) 0839 (Given - Provider: David David RN) 0836 (Given - Provider: Jose Alcaraz, FARTUN) 0803 (Given - Provider: Chani Schwab RN) [...] 1910, Until 02/20/25 at 1718, Routine, constipation 2135 (Given - Provider: Bianka Schwab RN) hydrALAZINE [...] documented in this encounter Additional Health Concerns Assessment Noted Time A fall risk assessment has been complete d for the patient 12/31/2024 3:03 PM EDT A Body Mass Index follow-up plan has been documented for the patient 02/20/2025 1:45 PM EDT documented as of this encounter Care Teams Tagman Relationship Specialty Start Date End Date Thiago Gregory APRN [address] [place] [address] PCP - General 03/20/24 Doug Bill RN ```````````````````````[facility] - PACU - MAJOR, TOM A Registered Nurse 12/23/24 documented as of this encounter
--- OUTSIDE RECORDS SUMMARY | 2025-02-17 08:11 | XMS_ITS | Encounter Summary ---
Author Organization Healthcare Address [address] [id number] Care Team Providers Care Picking Machine Operator Name Role Phone Thiago Gregory APRN Primary Care Provider [phone] Doug Bill RN Unavailable Unavailable Reason for Visit * Auth/Cert (Routine) Specialty Diagnoses / Procedures Referred By Contac t Referred To Contact Diagnoses Hydronephrosis, right hydronephrosis of right kidney Procedures OH LAP,PYELOPLASTY PYELOPLASTY, ROBOT-ASSISTED, USING DA COLE XI Talib Serna MD [address] [facility] [address] [place] [address] Phone: tel: fax: [facility] RO[facility] [address] [place] [address] Phone: tel: Referral ID Status Reason Start Date Expiration Date Visits Re quested Visits Authorized [id number] 1 1 Encounter Details Date Type Department Care Team (Late st Contact Info) Description 02/17/2025 8:11 AM EDT Anesthesia Event [facility] [address] [place] [address] Gordo Pham, CLINICAL EDUCATION CONSULTANT [address] [place] [address] Jose Francisco Thakur, DO [address] [place] [address] Anesthesia Record Procedure Summary Procedure Name Responsible Anesthesiologist Anesthesia Start Time Anesthesia Stop Time PYELOPLASTY, ROBOT-ASSISTED, USING DA COLE XI (Right) Gordo Pham, CLINICAL EDUCATION CONSULTANT 02/17/25 0811 02/17/25 1400 Events Date Time Event Comment 02/17/2025 0736 0811 An Start The patient was reevaluated immediately before sedation and remains eligible for anesthesia plan. 0815 An Start Data 0815 In Room 0818 An Induction The patient was reevaluated immediately before moderate or deep sedation use and before anesthesia induction. 0819 An Intubation 0824 Anesthesia Ready 0859 Proc Start 1346 Proc Fin 1348 An Extubation 1351 an stop data 1355 Out of Room 1400 Handoff to Receiving I compl eted my handoff to the receiving clinician during which we: 1. Identified the patient 2. Identified the responsible provider 3. Reviewed the pertinent medical history 4. Discussed the surgical course 5. Reviewed intra-op anesthesia management and issues during anesthesia 6. Set expectations for post-procedure period 7. Allowed opportunity for questions and acknowledgement of understanding. 1400 An Stop Meds Name Total fentaNYL (Sublimaze) injection 50 mcg/mL 100 mcg lidocaine PF (Xylocaine-MPF) 2% 100 mg propofol (Diprivan) injection 10 mg/mL 2 00 mg rocuronium (ZeMuron) injection 10 mg/mL 150 mg dexamethasone (Decadron) injection 4 mg/ mL 8 mg HYDROmorphone PF (Dilaudid) injection 1 mg/mL 2 mg ePHEDrine injection prefilled syringe 5 mg/mL 10 mg ondansetron (Zofran) injection 2 mg/mL 4 mg sugammadex (Bridion) injection 100 mg/mL 200 mg fluconazole (Diflucan) 400 mg in 200 mL NS (premix) 200 mg dexmedetomidine (Precedex) infusion in N aCl 4 mcg/mL 12 mcg ceFAZolin (Ancef) vial 1 g 4 g magnesium sulfate 4 g in dextrose 5 % 10 0 mL IVPB 2 g lactated Ringer's infusion 1,250 mL * Agents Name O2 * Blood No blood administrations on file. Lines, Drains, and Airways Type Details Placement Removal Wound 12/22/24; 0911; N; Y es; Surgical; Abdomen; Lower, Right, Mid, Outer 12/22/24 0911 by Jarret Wisdom RN Wound 02/17/25; Surgical; Abdomen; Right, Lower 02/17/25 0000 by Mandy Huff RN Wound 02/17/25; 1032; Surg ical; Laparoscopic; Abdomen; Right, Upper 02/17/25 1032 by Rekha Garrison RN Wound 12/05/24; 0027; N; Y es; Incision; Back; Lower, Right; 03/18/25; 1999; Healed 12/05/24 0027 by Fabiola Waller RN 03/18/251999 by Nenita Spears RN Peripheral IV Placement Date: 01/29 10/24; Placement Time: 06; Catheter Size: 20 G; Orientation: Posterior, Left; Location: Hand; Site Prep: Chlorhexidine ; Local Anesth: [place]; Technique: Anatomical landmarks; Inserted by: mario sands rn; Insertion Attempts: 1; Patient Tolerance: Tolerated well; Removal Date: 02/19/25; Removal Reason: Per patient/family request (states painful) 02/17/25 0630 by Arlene Sands RN 02/19/25 0000 by Chani Schwab RN ETT Placement Date: 01/29 10/24; Placement Time: 08 (created via procedure documentation); Mask Ventilation: 2; Technique: Direct laryngoscopy; Type: ETT - single; Single Lumen Tube Size: 7.5 mm; Cuffed: Yes; Laryngoscope: Jennifer; Blade Size: 4; Location: Oral; Grade View: Grade IIa; Insertion Attempts: 1; Placement Verification: Auscultation, Capnometry; Airway Comments: Atraumatic. No change to dentition. IIA view with BURP. ; Placed by: BETZAIDA; Removal Date: 02/17/25; Removal Time: 1348 02/17/25 0819 by Gordo Pham CRNA 02/17/25 1348 by Gordo Pham CRNA Peripheral IV Placement Date: 01/29 10/24; Placement Time: 08 (created via procedure documentation); Catheter Size: 16 G; Orientation: Left; Location: Forearm; Local Anesth: None; Technique: Anatomical landmarks; Inserted by: Gordo Pham CRNA; Insertion Attempts: 1; Removal Date: 02/19/25; Removal Time: 0000; Removal Reason: Per patient/family request 02/17/25 0820 by Gordo Pham CRNA 02/19/25 0000 by Chani Schwab RN Urethral Catheter Placement Date: 01/29 10/24; Placement Time: 0900; Inserted by: Dr. Serna; Type: Non-latex; Size: 16 Fr.; Balloon Size: 10 mL; Urine Returned: Yes; Removal Date: 02/20/25; Removal Time: 0515; Removal Reason: Per order 02/17/25 0900 by Rekha Garrison RN 02/20/25 0515 by Chani Schwab RN Closed/Suction Drain 02/17/25; 1320; Sup erior, Medial; Abdomen; Bulb; 15 Fr.; Other (Comment) (Removed by MD per patient.) 02/17/25 1320 by Rekha Garrison RN 02/20/25 1100 by Chadwick Alvarez RN documented in this encounter Social History Tobacco Use Types Packs/Day Years [...] any time in the past 12 m onths, were you homeless or living in a half-way (including now)? No 12/07/2024 CAGE ASSESSMENT Answer [...] drink first t nigel in the morning (EYE-MAGNETIC PROSPECTING SUPERVISOR) to steady your nerves or to get rid of a hangover? 0 01/01/2025 CAGE Questionnaire Score 0 025 Utilities Answer Date Recorded In the past 12 months has th e electric, gas, oil, or water company threatened to shut off services in your home? No 12/07/2024 Sex and Gender Information Value Date Recorded Sex Assigned at Male 10/03/2024 11:15 AM EST Legal Sex Male 6:18 PM EDT Gender Identity Not on file Sexual Orientation Not on file documented as of this encounter Functional Status * Calculated C-SSRS Risk Score (Lifetime/Recent) Answer Date of Assessment Author No Risk Indicated 02/17/2025 6:00 AM Arlene Carson RN * Question Answer Date of Assessment Author 1. Wish to be (Past 1 Month) No 025 6:00 AM Arlene Carson RN 2. Non-Specific Active Suici sena Thoughts (Past 1 Month) No 02/17/2025 6:00 AM EDT Arlene Sands, RN 6. Suicidal Behavior (Lifetime) No 6:00 AM EDT Arlene Sands RN documented as of this encounter Miscellaneous Notes * Anesthesia Postprocedure Evaluation - Gordo Pham CRNA - 02/17/2025 2:07 PM EDT Patient: Parth Pratt Anesthesia Type: general Vitals Value Taken Time BP 153/89 02/17/25 14:05 Temp 36.6 ??C (97.9 ??F) 02/17/25 13:56 Pulse 74 02/17/25 14:06 Resp 11 02/17/25 14:06 SpO2 97 % 02/17/25 14:06 Vitals shown include unfiled device data. Anesthesia Post Evaluation Patient location during evaluation: PACU Patient participation: complete - patient cannot participate Level of consciousness: sedated Pain management: adequate (pain score 0-3) Airway patency: natural airway Cardiovascular status: acceptable and hemodynamically stable Respiratory status: acceptable, spontaneous ventilation, unassisted, nasal cannula and nonlabored ventilation Hydration status: acceptable Nausea/Vomiting: No No notable events documented. * Anesthesia Procedure Notes - Gordo Pham CRNA - 02/17/2025 9:08 AM EDT Associated Order(s): Peripheral IV Peripheral IV Date/Time: 02/17/2025 8:20 AM Inserted by: Gordo Pham CRNA Placement Needle size: 16 G Location: forearm Local anesthetic: none Site prep: alcohol Technique: anatomical landmarks Attempts: 1 * Anesthesia Procedure Notes - Gordo Pham CRNA - 02/17/2025 9:07 AM EDT Associated Order(s): Airway Airway Date/Time: 02/17/2025 8:19 AM Reason: elective Airway not difficult General Information and Staff Patient location during procedure: OR CLINICAL EDUCATION CONSULTANT: Gordo Pham CRNA Performed: CLINICAL EDUCATION CONSULTANT Patient Condition Indications for airway management: anesthesia Patient position: sniffing Final Airway Details Final airway type: endotracheal airway Successful airway: ETT Cuffed: yes Successful intubation technique: direct laryngoscopy Endotracheal tube insertion site: oral Blade: Jennifer Blade size: #4 ETT size (mm): 7.5 Cormack-Lehane Classification: grade IIa - partial view of glottis Placement verified by: chest auscultation and capnometry Cuff volume (mL): 6 Measured from: lips ETT to lips (cm): 22 Additional Comments Atraumatic. No change to dentition. IIA view with BURP. * Anesthesia Preprocedure Evaluation - Balaji Jo MD - 02/17/2025 6:56 AM EDT Patient: Parth Pratt Procedure Information Date/Time: 02/17/25814 Procedure: PYELOPLASTY, ROBOT-ASSISTED, USING DA COLE XI (Right) Location: [facility] Surgeons: Talib Serna MD 70yoM with HTN, former smoker, EtOH abuse (40 drinks/week), marijuana use, with history of ureteropelvic junction obstruction and ureteral reimplant who now presents for the above procedure. Anesthesia history significant for difficult DL with subsequent easy intubation with glidescope lowpro s4. >4 METs Allergies reviewed Appropriately NPO Relevant Problems /Renal (+) Hydronephrosis of right kidney (+) Ureteropelvic junction (UPJ) obstruction, right Genitourinary (+) Ureteral stricture Anesthesia Evaluation Clinical information reviewed: Med Hx Tobacco Allergies Surg Hx Fam Hx Soc Hx NPO Status Date of Last Liquid: 02/17/25 Time of Last Liquid: 030 (6 oz water) Date of Last Solid: 02/16/25 Time of Last Solid: 2199 Last Intake Type: Clear fluids Time of Last Void: 0600 Physical Exam Airway Mallampati: I Mouth opening: limited TM distance: >3 FB Neck ROM: full Cardiovascular Rhythm: regular Rate: normal Dental - normal exam Pulmonary Breath sounds clear to auscultation Neurological Oriented: normal to time, normal to place and normal to person and oriented to person, place and time Skin Musculoskeletal Extremities Anesthesia Plan ASA 3 Plan was reviewed with: CLINICAL EDUCATION CONSULTANT Anesthesia technique(s) discussed with the patient/family: general Anesthesia plan agreed upon was: general Anesthetic plan and risks discussed with patient. Use of blood products discussed with patient who consented to blood products. Additional Equipment Requests documented in this encounter Plan of Treatment Upcoming Encounters Date Type Department Care Team (Latest Contact Info) Description 04/29/2025 9:00 AM EDT Office Visit Medical Office Building Urology [address] [facility], [address] [place] [address] Talib Serna MD [address] [address] 05/17/2025 10:35 AM EDT Hospital Encounter [facility] [address] [place] [address] Talib Serna MD [address] [address] 05/17/2025 10:35 AM EDT - 05/17/2025 12:05 PM EDT Surgery [facility] [address] [place] [address] Talib Serna MD [address] [address] URETEROSCOPY, WITH BIOPSY WITH POSSIBLE R URETERAL STENT EXCHANGE [01705 (CPT )] 06/17/2025 12:00 PM EDT Appointment [facility] [address] [place] [address] 06/17/2025 1:30 PM EDT Office Visit Medical Office Building Urology [address] [facility], [address] [place] [address] Talib Serna MD [address] [place] [address] 10/21/2025 11:00 AM EST [facility] [address] [place] [address] Mayi Ballard MD [address] [facility] [address] [place] [address] Scheduled Procedures Name Priority Associated Diagnoses Date/Ti me URETEROSCOPY, WITH BIOPSY Ureteropelvic junction (UPJ) obstruction, right 05/17/2025 10:35 AM EDT documented as of this encounter Procedures Procedure Name Priority Date/Time Associated Diagnosis Comments ANESTHESIA PERIPHERAL IV PLACEMENT Routine 02/17/2025 8:20 AM EDT PB ANESTHESIA PLACEHOLDER Routine 02/17/2025 8:19 AM EDT OH AN ELECTIVE ENDOTRACHEAL AIRWAY Routine 02/17/2025 8:19 AM EDT documented in this encounter Results * Peripheral IV (02/17/2025 8:20 AM EDT) Narrative Gordo Pham CRNA - 02/17/2025 8:20 AM EDT Gordo Pham CRNA 02/17/2025 9:08 AM Peripheral IV Date/Time: 02/17/2025 8:20 AM Inserted by: Gordo Pham CRNA Placement Needle size: 16 G Location: forearm Local anesthetic: none Site prep: alcohol Technique: anatomical landmarks Attempts: 1 us Balaji Jo MD ANESTHESIA ORDERABLES Final R esult * OH AN ELECTIVE ENDOTRACHEAL AIRWAY, PB ANESTHESIA PLACEHOLDER (02/17/2025 8:19 AM EDT) Narrative Gordo Pham CRNA - 02/17/2025 8:19 AM EDT Gordo Pham CRNA 02/17/2025 9:07 AM Airway Date/Time: 02/17/2025 8:19 AM Reason: elective Airway not difficult General Information and Staff Patient location during procedure: OR CLINICAL EDUCATION CONSULTANT: Gordo Pham CRNA Performed: CLINICAL EDUCATION CONSULTANT Patient Condition Indications for airway management: anesthesia Patient position: sniffing Final Airway Details Final airway type: endotracheal airway Successful airway: ETT Cuffed: yes Successful intubation technique: direct laryngoscopy Endotracheal tube insertion site: oral Blade: Jennifer Blade size: #4 ETT size (mm): 7.5 Cormack-Lehane Classification: grade IIa - partial view of glottis Placement verified by: chest auscultation and capnometry Cuff volume (mL): 6 Measured from: lips ETT to lips (cm): 22 Additional Comments Atraumatic. No change to dentition. IIA view with BURP. us Balaji Jo MD ANESTHESIA ORDERABLES Final R esult documented in this encounter Visit Diagnoses Not on filedocumented in this encounter Administered Medications Inactive Administered Medications - up to 3 most recent administrations Medication Order MAR Action Action Date Dose Rate Site ceFAZolin (Ancef) injection Intravenous, As needed, Starting on Sat02/17/25 at 0830, Until Sat02/17/25 at 1407, Routine, Anesthesia Intraprocedure Given 02/17/2025 12:30 PM EDT 2 g Given 02/17/2025 8:30 AM EDT 2 g dexamethasone (Decadron) injection Intravenous, As needed, Starting on Sat02/17/25 at 0824, Until Sat02/17/25 at 1407, Routine, Anesthesia Intraprocedure Given 02/17/2025 8:24 AM EDT 8 mg dexmedetomidine in NS (Precedex) 4 mcg/mL infusion Intravenous, As needed, Starting on Sat02/17/25 at 0811, Until Sat02/17/25 at 1407, Routine Given 02/17/2025 8:11 AM EDT 12 mcg ePHEDrine Sulfate (Akovaz) injection Intravenous, As needed, Starting on Sat02/17/25 at 0824, Until Sat02/17/25 at 1407, Routine, Anesthesia Intraprocedure Given 02/17/2025 8:24 AM EDT 10 mg fentaNYL (Sublimaze) injection Intravenous, As needed, Starting on Sat02/17/25 at 0811, Until Sat02/17/25 at 1407, Routine, Anesthesia Intraprocedure Given 02/17/2025 8:11 AM EDT 100 mcg fluconazole in NS (Diflucan) IVPB Intravenous, As needed, Starting on Sat02/17/25 at 0846, Until Sat02/17/25 at 1407, Administer over 2 Hours, Routine Given 02/17/2025 8:46 AM EDT 200 mg HYDROmorphone PF (Dilaudid) injection Intravenous, As needed, Starting on Sat02/17/25 at 0815, Until Sat02/17/25 at 1407, Routine, Anesthesia Intraprocedure Given 02/17/2025 1:37 PM EDT 0.5 mg Given 02/17/2025 1:26 PM EDT 0.5 mg Given 02/17/2025 8:18 AM EDT 0.5 mg lactated Ringer's infusion 20 mL/hr, Intravenous, Continuous, Starting on Sat02/17/25 at 0700, Until Sat02/17/25 at 1746, Routine New Bag 02/17/2025 8:11 AM EDT lidocaine PF (Xylocaine) 2 % injection Intravenous, As needed, Starting on Sat02/17/25 at 0815, Until Sat02/17/25 at 1407, Routine, Anesthesia Intraprocedure Given 02/17/2025 8:15 AM EDT 100 mg magnesium sulfate 4 g in dextrose 5 % 100 mL IVPB Intravenous, Continuous PRN, Starting on Sat02/17/25 at 0920, Until Sat02/17/25 at 1407, Routine New Bag 02/17/2025 9:20 AM EDT 2 g ondansetron (Zofran) injection Intravenous, As needed, Starting on Sat02/17/25 at 1336, Until Sat02/17/25 at 1407, Routine, Anesthesia Intraprocedure Given 02/17/2025 1:36 PM EDT 4 mg propofol (Diprivan) injection Intravenous, As needed, Starting on Sat02/17/25 at 0818, Until Sat02/17/25 at 1407, Routine, Anesthesia Intraprocedure Given 02/17/2025 8:40 AM EDT 25 mg Given 02/17/2025 8:20 AM EDT 25 mg Given 02/17/2025 8:18 AM EDT 150 mg rocuronium (ZeMuron) injection Intravenous, As needed, Starting on Sat02/17/25 at 0818, Until Sat02/17/25 at 1407, Routine, Anesthesia Intraprocedure Given 02/17/2025 1:09 PM EDT 10 mg Given 02/17/2025 12:05 PM EDT 10 mg Given 02/17/2025 11:48 AM EDT 10 mg sugammadex (Bridion) 100 MG/ML injection Intravenous, As needed, Starting on Sat02/17/25 at 1344, Until Sat02/17/25 at 1407, Routine, Anesthesia Intraprocedure Given 02/17/2025 1:44 PM EDT 200 mg documented in this encounter Additional Health Concerns Assessment Noted Time A fall risk assessment has been complete d for the patient 12/31/2024 3:03 PM EDT A Body Mass Index follow-up plan has been documented for the patient 02/20/2025 1:45 PM EDT documented as of this encounter Care Teams Picking Machine Operator Relationship Specialty Start Date End Date Thiago Gregory APRN [address] [place] [id number] PCP - General 03/20/24 Doug Bill, RN ```````````````````````CH - PACU - MAJOR, PAV A Registered Nurse 12/23/24 documented as of this encounter
--- OUTSIDE RECORDS SUMMARY | 2025-02-17 08:15 | XMS_ITS | Encounter Summary ---
Author Organization Healthcare Address [address] [id number] Care Team Providers Care Contract Paralegal Name Role Phone Thiago Gregory APRN Primary Care Provider [phone] Doug Bill RN Unavailable Unavailable Reason for Visit * Auth/Cert (Routine) Specialty Diagnoses / Procedures Referred By Twila t Referred To Contact Diagnoses Hydronephrosis, right hydronephrosis of right kidney Procedures AL LAP,PYELOPLASTY PYELOPLASTY, ROBOT-ASSISTED, USING DA COLE XI Talib Serna MD [address] [address] Phone: tel: fax: [facility] A OPERATING ROOM [address] [place] [address] Phone: tel: Referral ID Status Reason Start Date Expiration Date Visits Re quested Visits Authorized [id number] 1 1 Encounter Details Date Type Department Care Team (Late st Contact Info) Description 02/17/2025 8:15 AM EDT - 02/17/2025 12:40 PM EDT Surgery [facility]PERATING RO[facility] [address] [place] [id number] Talib Serna MD [address] [address] PYELOPLASTY, ROBOT-ASSISTED, USING DA COLE XI [16614 (CPT )] Surgery Details Date/Time Status Location OR Service Patient Class Case Class Case Type Trauma Case? 02/17/2025 8:15 AM Posted [facility] OR 2OR 06 Urology [facility] Outpatient Surgery E-Electiv e Panel 1 Procedure LRB Anes Op Region Wound Class Comments PYELOPLASTY, ROBOT-ASSISTED, USING DA COLE XI Right General Surgeon Surgeon Role Service Panel Corrie Estevez Resident - Assisting 1 Talib Serna MD [...] any time in the past 12 m [facility], were you homeless or living in a correction (including now)? No 12/07/2024 CAGE ASSESSMENT Answer [...] drink first t nigel in the morning (EYE-STAPLER MACHINE) to steady your nerves or to get rid of a hangover? 0 01/01/2025 CAGE Questionnaire Score 0 025 Utilities Answer Date Recorded In the past 12 months has [employer] ([employer]), gas, oil, or water Played threatened to shut off services in your [...] Author No Risk Indicated 02/17/2025 6:00 AM EDT Arlene Sands, RN * Question Answer Date of Assessment Author 1. Wish to be (Past 1 Month) No 025 6:00 AM EDT Arlene Sands RN 2. Non-Specific Active Suici sena Thoughts (Past 1 Month) No 02/17/2025 6:00 AM EDT Arlene Sands, RN 6. Suicidal Behavior (Lifetime) No 6:00 AM EDT Arlene Sands RN documented as of this encounter Discharge [...] confirm your location ahead of your appointment) [facility] Urology Department Clinic at [facility] [address], [facility], [address] [place] [address] Clinic After Hours [facility] Office Building Urology Clinic [address] [place] [address] Clinic After Hours [facility] Multidisciplinary Urology Clinic [address] 1st [place] [address] Clinic documented in this encounter Medications at [...] directed by MD. 5 patch 02/20/2025 5 phenazopyridine (Pyridium) 200 [...] from the original note were not included. [address] Pyeloplasty The ureters are the two tubes [...] medicines you take. This includes prescription and [id number]-[id number] medicines, vitamins, herbs, and supplements. You may [...] Risks of anesthesia (the anesthesiologist or nurse feather duster winder will discuss these with you) Last Reviewed Date: 2022 00:00:00 ?? [id number] The [employer]. All rights reserved. This information is not [...] PCP name and Address: Thiago Gregory APRN [address] [place] [address] / [place] [address] Referring provider name and address: No referring [...] Your Medications These medications were sent to [facility] - [place], [place] - [address] [facility] [address] acetaminophen 500 MG tablet lidocaine 5 % [...] confirm your location ahead of your appointment) [facility] Urology Department Clinic at [facility] [address], [address], [address] [place] [address] Clinic After Hours [facility] Medical Office Building Urology Clinic [address] [place] [address] Clinic After Hours [facility] Multidisciplinary Urology Clinic [address] [place] [address] Clinic Outpatient Follow-Up Future Appointments Date Time Provider Department Center 04/08/2025 9:10 AM [facility] Results Pending At Discharge None Pertinent [...] Stewart MD - 02/19/2025 8:01 AM EDT [facility] Urology Inpatient Progress Note Primary Attending: [...] Type: Bulb Size (Fr.): 15 Fr. Drain [place] Size (mL): 100 mL Urethral Catheter Non-latex [...] Stewart MD General Surgery Preliminary PGY1 Pager: [phone] Department of Urology Cosigned by Talib Serna [...] Stewart MD - 02/18/2025 7:46 AM EDT [facility] Urology Inpatient Progress Note Primary Attending: [...] Type: Bulb Size (Fr.): 15 Fr. Drain [place] Size (mL): 100 mL Urethral Catheter Non-latex [...] Stewart MD General Surgery Preliminary PGY1 Pager: [phone] Department of Urology Cosigned by Talib Serna [...] Agree with above assessment and evaluation from resident/CHECKER LOADER. * Op Note - Talib Serna MD - 02/17/2025 8:59 AM EDT Operative Note Date: 02/17/25 Location: [facility] Name: Parth Pratt, : 1955, Diagnoses: Pre-op Diagnosis Hydronephrosis, right Post-op Diagnosis Hydronephrosis, right Procedure(s): Cystoscopy with right ureteral stent exchange Right diagnostic ureteroscopy Right robot assisted laparoscopic pyeloplasty Attending Surgeon(s): * Talib Serna - Primary Towel Distributor(s): * Corrie Estevez MD - Resident - Assisting Anesthesia: General ASA: III Blood Administration: Blood Product Administration History None Drains: Closed/Suction Drain Superior;Medial Abdomen Bulb 15 Fr. (Active) Site Description Clean;Dry 02/17/25 151 Dressing Status Old drainage;Intact;Clean 02/17/251654 Drainage Appearance Bright red 02/17/251654 Status Suction-low intermittent 02/17/251654 Output (mL) 90 mL 02/17/251654 Urethral Catheter [...] URETERAL DOUBLE PIGTAIL POS 6FR 22CM - [id number] - [id number] Implanted [id number] Specimen: Specimens ID Source Frozen? 1 Other [...] genitalia were prepped and draped in the usual sterile fashion. Time-out performed to verify the correct patient, side, and procedure. Flexible cystoscope was introduced at the urethral meatus and advanced into the bladder without difficulty. Urine sample was obtained for culture. A sensor wire was passed alongside his indwelling stent into a widely patent reimplanted ureter. The stent was then removed and a 5 Guinean ureteral catheter was placed over the wire. Sung catheter was placed into the bladder alongside it. Veress needle was used to access the peritoneum in the right upper quadrant. After appropriate water test, the abdomen was insufflated. Four robot trocars were placed roughly along the midclavicular line. 5 mm printing assistant port was placed below the umbilicus. There was some insufflation the retroperitoneum noted. Monopolar scissors were used to reflect the colon medially after the robot was docked. We identified the ureterand mobilized it up toward the kidney. Gonadal vessels were swept medially. There was significant inflammation around the proximal ureter and ureteropelvic junction. The Sung catheter and 5 Guinean ureteral catheter were removed and flexible ureteral scope was advanced into the bladder and then into the right ureter. We identified the segment of ureter that appeared unhealthy ureteroscopically and noted the location. The ureter was then transversely divided at the appropriate level and spatulated laterally. We then mobilized the renal pelvis and opened it medially to guide our excision. With s ome difficulty, we were able to excise the [...] and the scope was withdrawn. A 6 Guinean by 22 cm double-J ureteral stent was then passed over the wire and positioned within the right renalpelvis. Good distal curl was confirmed with the cystoscope. The Sung catheter was replaced. We completed the interrupted anastomosis with good tissue approximation. Vistaseal was applied. A 15 Guinean drain was placed through the lowest trocar [...] Results Contains abnormal data Urine Culture Order: [id number] - Reflex for Order [id number] Collected 01/01/2025 08:03 Status: Final result Test Result Released: Yes (not seen) Specimen Information: Urine, Clean Catch 0 Result Notes Culture 10,000 - 100,000 CFU/mL Lucie albicans Abnormal This result was determined by MALDI tof Mass spectrometry. This assay was developed and its performance characteristics determined by [facility] as appropriate for clinical purposes. [...] History: Procedure Laterality Date COLONOSCOPY CYSTOSCOPY 12/15/2024 ([facility]) cystosopy, ANTEGRADE URETEROSCOPY, right nephrostomy tube exchange (Ureter) URETEROSCOPY (Right) INSERTION OR REPLACEMENT, NEPHROSTOMY TUBE (Right) HIP ARTHROPLASTY Bilateral HIP SURGERY Right to replace recalled loli device KIDNEY STONE SURGERY LIVER BIOPSY NEPHROSTOMY 12/04/2024 ([facility]) INSERTION OR REPLACEMENT, NEPHROSTOMY TUBE (Right) PROSTATE BIOPSY SHOULDER SURGERY Left cadaver tendon placed in shoulder TONSILLECTOMY UPPER GASTROINTESTINAL ENDOSCOPY URETEROSCOPY 11/30/2024 ([facility]) URETEROSCOPY, RIGHT RETROGRADE (Right) CYSTOSCOPY [...] photo ID, along with power of deputy prosecuting attorney, guardianship or advanced directives if applicable [...] Visit Medical Office Building Urology [address] [facility], [address] [place] [address] Talib Serna MD [address] [address] 05/17/2025 10:35 AM EDT Hospital Encounter [facility] OPERATING ROOM [address] [place] [address] Talib Serna MD [address] [address] 05/17/2025 10:35 AM EDT - 05/17/2025 12:05 PM EDT Surgery [facility] OPERATING ROOM [address] [place] [address] Talib Serna MD [address] [address] URETEROSCOPY, WITH BIOPSY WITH POSSIBLE R URETERAL STENT EXCHANGE [52021 (CPT )] 06/17/2025 12:00 PM EDT Appointment [facility] [address] [place] [address] 06/17/2025 1:30 PM EDT Office Visit Medical Office Building Urology [address] [facility], [address] [place] [address] Talib Serna MD [address] [place] [address] 10/21/2025 11:00 AM EST Office Visit ID Clinic Medicine Specialties [address] [place] [address] Mayi Ballard MD [address] [facility] [address] [place] [address] Scheduled Procedures Name Priority Associated [...] Routine 02/17/2025 9:00 AM EDT Hydronephrosis, right AL LAP,PYELOPLASTY 02/17/2025 8: 05 AM EDT Hydronephrosis, [...] following split bolus administration of IV contrast, [id number], 150 mL. Reformatted images in the coronal [...] Chadwick Bosch MD on 02/23/2025 9:24 AM Talib Serna MD IMG CT PROCEDURES Final [...] ult [facility] [address] [place] [address] * (ABNORMAL) Hemogram (CBC) (02/20/2025 4:13 AM [...] ult [facility] [address] [place] [address] * (ABNORMAL) Basic metabolic panel (02/19/2025 4:38 [...] ult [facility] [address] [place] [address] * (ABNORMAL) Hemogram (CBC) (02/19/2025 4:38 AM [...] ult [facility] [address] [place] [address] * (ABNORMAL) Basic metabolic panel (02/18/2025 4:18 AM EDT) Glucose, Plasma 105(H) 74 - 99 mg/dL 02/18/2025 5:01 AM EDT [facility] BUN, Plasma 13 8 - 23 mg/dL 02/18/2025 5:01 AM EDT [facility] Creatinine, Plasma 0.60(L) 0.70 - 1.20 mg/dL 02/18/2025 5:01 AM EDT [facility] BUN/Creatinine Ratio 02/18/2025 5:01 AM EDT [facility] ult [facility] [address] [place] [address] * (ABNORMAL) Hemogram (CBC) (02/18/2025 4:18 AM [...] ult [facility] [address] [place] [address] * (ABNORMAL) Basic metabolic panel (02/17/2025 4:37 PM EDT) [facility] Glucose, Plasma 142(H) 74 - 99 mg/dL [...] ult [facility] [address] [place] [address] * (ABNORMAL) CBC W/O Differential (02/17/2025 4:37 [...] ult [facility] [address] [place] [address] * Surgical Pathology Exam (02/17/2025 1:42 PM EDT) Case Report Surgical Pathology Case: [id number] Authorizing Provider: Talib Serna MD Collected: 02/17/2025 1342 Ordering Location: [facility] A OPERATING ROOM Received: 02/17/2025 1427 Pathologist: [...] Result [facility] [address] [place] [address] * (ABNORMAL) Urine Culture (02/17/2025 9:00 AM EDT) Culture 1,000 - 10,000 CFU/mL Lucie albicans(A) 02/19/2025 1:01 PM EDT [facility] Comment: This result was determined by MALDI tof Mass spectrometry. This assay was developed and its performance characteristics determined by [facility] as appropriate for clinical purposes. [...] MICROBIOLOGY - GENERAL ORD ERABLES Final Result [facility] [address] [place] [address] * Type and Screen (02/17/2025 6:48 AM [...] TEST ORDERABLES Final Result Performing Organization Address [facility] Co de Phone Number BLOOD BANK [address] documented in this encounter Visit Diagnoses Diagnosis Ureteropelvic junction (UPJ) obstruction, right- Primary Hydronephrosis, right Hydronephrosis Hydronephrosis, right Hydronephrosis Ureteropelvic junction (UPJ) obstruction, right documented in [...] documented as of this encounter Care Teams Contract Paralegal Relationship Specialty Start Date End Date Thiago Gregory APRN [address] [place] [address] PCP - General 03/20/24 Doug Bill RN ```````````````````````CH - PACU - MAJOR, PAV A Registered Nurse 12/23/24 documented as of this encounter
--- OUTSIDE RECORDS SUMMARY | 2025-03-16 09:15 | XMS_ITS | Encounter Summary ---
Author Organization Healthcare Address [address] [id number] Care Team Providers Care Space Scheduler Name Role Phone Thiago Gregory APRN Primary Care Provider [phone] Dogu Bill RN Unavailable Unavailable Reason for Referral * Imaging (Routine) - Pending Review Specialty Diagnoses / Procedures Referred By Twila metzger Referred To Contact Radiology Diagnoses Hydronephrosis of right kidney Procedures CT Urogram Talib Serna MD [address] [address] Phone: tel: fax: Referral ID Status Reason Start Date Expiration Date V isits Requested Visits Authorized [id number] Pending Review 03/16/2025 09/15/2026 1 1 Reason for Visit * Reason Comments Cystoscope Stent Removal * Auth/Cert (Routine) Specialty Diagnoses / Procedures Referred By Twila metzger Referred To Contact Diagnoses Ureteropelvic junction (UPJ) obstruction, right removal of stent, pain when urinating Talib Serna MD [address] [address] Phone: tel: fax: PAV H Inpatient [address] [place] [address] Phone: tel: Referral ID Status Reason Start Date Expiration Date Visits Re quested Visits Authorized [id number] 1 1 Encounter Details Date Type Department Care Team (Latest Contact Info) Description 03/16/2025 9:15 AM EDT Office Visit Medical Office Building Urology [address] [facility], [address] [place] [address] Talib Serna MD [address] [place] [address] Hydronephrosis of right kidney (Primary Dx) Social History Tobacco Use Types Packs/Day Years [...] Date Recorded Patient Health Questionnaire-2 Score 0 03/16/2025 Hunger Vital Sign Answer Date Recorded Within [...] time in the past 12 m [facility], were you homeless or living in a residential (including now)? No 12/07/2024 AUDIT-C Answer Date Recorded Q1: How often do you have a drink containing alc ohol? 2-3 times a week 03/16/2025 Q2: How many drinks containi ng alcohol do you have on a typical day when you are drinking? 3 or 4 03/16/2025 Q3: How often do you have si x or more drinks on one occasion? Never 03/16/2025 CAGE ASSESSMENT Answer Date Recorded Cage unable to access Not on file 03/17/2025 Maximum number of drinks you had on a given occasion in the last month? 4 drinks 03/17/2025 How many alcoholic Beverages do you typically drink in a week? 0 - 7 per week 03/17/2025 Have you ever felt you should CUT down on your d rinking? 0 03/17/2025 Have you been ANNOYED by peo ple criticizing your drinking? 0 03/17/2025 Have you felt GUILTY about your drinking? 0 03/17/2025 Have you had a drink first t nigel in the morning (EYE-CONVEYOR FEEDER) to steady your nerves or to get rid of a hangover? 0 03/17/2025 CAGE Questionnaire Score 0 025 Utilities Answer Date Recorded In the past 12 months has th e [employer], gas, oil, or water company threatened to shut off services in your home? No 12/07/2024 Sex and Gender Information Value Date Recorded Sex Assigned at Male 10/03/2024 11:15 AM EST Legal Sex Male 6:18 PM EDT Gender Identity Not on file Sexual Orientation Not on file documented as of this encounter Last Filed Vital Signs Vital Sign Reading Time Taken Comments Blood Pressure 152/88 03/16/2025 9:38 AM EDT Pulse 67 03/16/2025 9:38 AM EDT Temperature - - Respiratory Rate - - Oxygen Saturation 98% 03/16/2025 9:38 AM EDT Inhaled Oxygen Concentration - - Weight 68 kg (150 lb) 03/16/2025 9:38 AM EDT Height 180.3 cm (5' 11 ) 03/16/2025 9:38 AM EDT Body Mass Index 20.92 03/16/2025 9:38 AM EDT documented in this encounter Functional Status * AUDIT-C Score Answer Date of Assessment Author 4 03/16/2025 9:41 AM EDT Renetta Mann * Question Answer Date of Assessment Author Q1: How often do you have a drink containing alcohol? 2-3 times a week 03/16/2025 9:41 AM EDT Renetta Mann Q2: How many drinks containing alcohol do you have on a typical day when you are drinking? 3 or 4 03/16/2025 9:41 AM EDT Renetta Mann Q3: How often do you have six or more drinks on one occasion? Never 03/16/2025 9:41 AM EDT Renetta Mann * Over the past 2 weeks, how often have you been bothered by any of the following problems? Question Answer Date of Assessment Author Little interest or pleasure in doing things Not at all 03/16/2025 9:45 AM EDT Renetta Mann Feeling down, depressed, or hopeless Not at all 03/16/2025 9:45 AM EDT Renetta Mann Patient Health Questionnaire -2 Score 0 03/16/2025 9:45 AM EDT Renetta Mann documented as of this encounter Miscellaneous Notes * Progress Notes - Talib Serna MD - 03/16/2025 9:15 AM EDTAssociated Order(s): Cysto with Stent Removal Post-Procedure Diagnose(s): Hydronephrosis of right kidney HPI: Parth Pratt is a 70 y.o. 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 He presents today for stent removal. He says he is generally done well since his last procedure, although he is still feeling quite fatigued. He is eating and drinking well. He has noted some intermittent hematuria. Current Outpatient Medications Medication Instructions colchicine (COLCRYS) 0.6 mg, 2 times daily methocarbamol (ROBAXIN) 500 mg, Oral, 4 times daily naloxone (NARCAN) 4 mg, Nasal, As needed oxyCODONE (ROXICODONE) 5 mg, Oral, Every 6 hours PRN phenazopyridine (PYRIDIUM) 200 mg, Oral, 3 times daily PRN senna-docusate sodium (Senokot-S) 8.6-50 MG tablet 1 tablet, Oral, Daily tamsulosin (FLOMAX) 0.4 mg, Oral, Daily with dinner Past Medical History[1] Surgical History[2] Social History[3] Family History[4] PE: GEN: No acute distress Ears/Nose/Mouth/Throat: No obvious drainage per ears or nose CV: Well perfused PULM: No audible wheezing or stridor, non-labored respirations on room air MS: normal ROM of UEs Skin: No obvious rashes or open sores Abd: Incisions healing well without evidence of infection or dehiscence Neuro: CN 2-12 grossly intact Psych: Answered questions appropriately with normal affect Heme/Lymph/Immunologic: No obvious bruises or sites of spontaneous bleeding LABS: Creatinine, Plasma (mg/dL) Date/Time Value 02/20/2025 0413 0.61 (L) eGFRcr (mL/min/1.73m*2) Date/Time Value 02/20/2025 0413 102.7 Total Calcium, Plasma (mg/dL) Date/Time Value 02/20/2025 0413 9.2 Cysto with Stent Removal Performed by: Talib Serna MD Authorized by: Talib Serna MD Abnormal Bladder Details: Cystoscopy Object Removal Details: After informed consent was obtained, he was prepped and draped in the usual sterile fashion. Patient and procedure were confirmed. Flexible cystoscope was introduced at the urethral meatus and advanced into the bladder without difficulty. The stent was identified, grasped, and removed intact. He tolerated the procedure well. He was given postprocedure instructions. IMPRESSION: 70 y.o. male with history of ureteral obstruction now s/p right ureteral reimplantation and pyeloplasty; doing well. PLAN: RTC 2-[address] urogram Talib Serna MD, MPH [1] Past Medical History: Diagnosis Date Alcohol [...] 01/2025 on bactrim for 10 days [2] Past Surgical History: Procedure Laterality Date COLONOSCOPY CYSTOSCOPY 12/15/2024 ([facility]) cystosopy, ANTEGRADE URETEROSCOPY, right nephrostomy tube exchange (Ureter) URETEROSCOPY (Right) INSERTION OR REPLACEMENT, NEPHROSTOMY TUBE (Right) HIP ARTHROPLASTY Bilateral HIP SURGERY Right to replace recalled loli device KIDNEY STONE SURGERY LIVER BIOPSY NEPHROSTOMY 12/04/2024 ([facility]) INSERTION OR REPLACEMENT, NEPHROSTOMY TUBE (Right) PROSTATE BIOPSY SHOULDER SURGERY Left cadaver tendon placed in shoulder TONSILLECTOMY UPPER GASTROINTESTINAL ENDOSCOPY URETEROSCOPY 11/30/2024 ([facility]) URETEROSCOPY, RIGHT RETROGRADE (Right) CYSTOSCOPY (Bladder) [3] Social History Tobacco Use Smoking status: [...] Types: Marijuana Comment: 4 times weekly [4] Family History Problem Relation Name Age of Onset Hyperthyroidism Sister Malkarena Hyperthermia Neg Hx documented in this encounter Plan of Treatment Upcoming Encounters Date Type Department Care Team (Latest Contact Info) Description 04/29/2025 9:00 AM EDT Office Visit Medical Office Building Urology [address] [place] [address] [address] [place] [address] Talib Serna MD [address] [address] 05/17/2025 10:35 AM EDT Hospital Encounter [facility] [address] [place] [address] Talib Serna MD [address] [address] 05/17/2025 10:35 AM EDT - 05/17/2025 12:05 PM EDT Surgery [facility] [address] [place] [address] Talib Serna MD [address] [address] URETEROSCOPY, WITH BIOPSY WITH POSSIBLE R URETERAL STENT EXCHANGE [42077 (CPT )] 06/17/2025 12:00 PM EDT Appointment [facility] [address] [place] [address] 06/17/2025 1:30 PM EDT Office Visit Medical Office Building Urology [address] [facility], [address] [place] [address] Talib Serna MD [address] [address] 10/21/2025 11:00 AM EST Office Visit [place] [facility] [address], [address] [place] [address] Mayi Ballard MD [address] [place] [address] Scheduled Orders Name Type Priority Associated Diagnoses Orde r Schedule CT Urogram Imaging Routine Hydronephrosis of right kidney Expected: 06/16/2025 (Approximate), Expires: 09/17/2026 Scheduled Procedures Name Priority Associated Diagnoses Date/Ti me URETEROSCOPY, WITH BIOPSY Ureteropelvic junction (UPJ) obstruction, right 05/17/2025 10:35 AM EDT documented as of this encounter Procedures Procedure Name Priority Date/Time Associated Diagnosis Comments URO CYSTO SUPPLIES Routine 03/16/2025 9: 15 AM EDT Hydronephrosis of right kidney [place] CYSTOSCOPY,REMV CALCULUS,SIMPLE Routine 03/16/2025 9:15 AM EDT Hydronephrosis of right kidney documented in this encounter Results * [place] CYSTOSCOPY,REMV CALCULUS,SIMPLE, URO CYSTO SUPPLIES (03/16/2025 9:15 AM EDT) Narrative Talib Serna MD - 03/16/2025 9:15 AM EDT Talib Serna MD 03/16/2025 3:02 PM Cysto with Stent Removal Performed by: Talib Serna MD Authorized by: Talib Serna MD Abnormal Bladder Details: Cystoscopy Object Removal Details: Talib Serna MD PROCEDURE ORDERABLES Final Result documented in this encounter Visit Diagnoses Diagnosis Hydronephrosis of right kidney- Primary Hydronephrosis Ureteropelvic junction (UPJ) obstruction, right documented in this encounter Additional Health Concerns Assessment Noted Time A fall risk assessment has been complete d for the patient 03/16/2025 9:45 AM EDT A Body Mass Index follow-up plan has been documented for the patient 03/16/2025 3:02 PM EDT documented as of this encounter Care Teams Space Scheduler Relationship Specialty Start Date End Date Thiago Gregory APRN [address] [place] [id number] PCP - General 03/20/24 Doug Bill RN ```````````````````````CH - PACU - MAJOR, PAV A Registered Nurse 12/23/24 documented as of this encounter
--- OUTSIDE RECORDS SUMMARY | 2025-03-17 17:05 | XMS_ITS | Encounter Summary ---
Author Organization [facility] Address [address] [id number] Care Team Providers Care Glass Cut Off Supervisor Name Role Phone Thiago Gregory APRN Primary Care Provider [phone] Doug Bill RN Unavailable Unavailable Reason for Visit * Reason Comments Flank Pain * Auth/Cert (Routine) Specialty Diagnoses / Procedures Referred By Contac t Referred To Contact Diagnoses Ureteropelvic junction (UPJ) obstruction, right removal of stent, pain when urinating Talib Serna MD [address] [address] Phone: tel: fax: [facility] [address] [place] [address] Phone: tel: Referral ID Status Reason Start Date Expiration Date Visits Re quested Visits Authorized [id number] 1 1 Encounter Details Date Type Department Care Team (Latest Contact Info) Description 03/17/2025 5:05 PM EDT - 03/19/2025 3:33 PM EDT Hospital Encounter [facility] [address] [place] [id number] Michelle Craig MD [address] [place] [address] Talib Serna MD [address] [address] Postoperative surgical complication involving genitourinary system associated with genitourinary procedure, unspecified complication (Primary Dx); Ureteropelvic junction (UPJ) obstruction, right; Right flank pain Discharge Disposition: Home or Self Care Social [...] drink first t nigel in the morning (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 0 03/17/2025 CAGE Questionnaire Score 0 025 Utilities Answer Date Recorded In the past 12 months has th [employer], gas, oil, or water [employer] threatened to shut off services in your home? No 12/07/2024 Sex and Gender Information Value Date Recorded Sex Assigned at Male 10/03/2024 11:15 AM EST Legal Sex Male 6:18 PM EDT Gender Identity Not on file Sexual Orientation Not on file documented as of this encounter Last Filed Vital Signs Vital Sign Reading Time Taken Comments Blood Pressure 164/93 03/19/2025 7:15 AM EDT Pulse 78 03/19/2025 7:15 AM EDT Temperature 36.8 C (98.3 F) 03/19/2025 7:15 AM EDT Respiratory Rate 15 03/19/2025 7:15 AM EDT Oxygen Saturation 96% 03/19/2025 7:15 AM EDT Inhaled Oxygen Concentration - - Weight 68 kg (150 lb) 03/17/2025 5:17 PM EDT Height 177.8 cm (5' 10 ) 03/17/2025 5:17 PM EDT Body Mass Index 21.52 03/17/2025 5:17 PM EDT documented in this encounter Functional Status * Calculated C-SSRS Risk Score (Lifetime/Recent) Answer Date of Assessment Author No Risk Indicated 03/19/2025 8:00 AM EDT Tami Ramírez, RN * Question Answer Date of Assessment Author 1. Wish to be (Past 1 Month) No 025 8:00 AM EDT Tami Ramírez, RN 2. Non-Specific Active Suici sena Thoughts (Past 1 Month) No 03/19/2025 8:00 AM EDT May Ramírez RN 6. Suicidal Behavior (Lifetime) No 8:00 AM EDT Tami Ramírez RN documented as of this encounter Discharge Instructions * Discharge Instructions* Laila Nunez MD - 03/19/2025 10:44 AM EDT Medications: - You should take 500mg Tylenol every 6 hours for mild - moderate pain. You may take up to 1000mg every 6 hours but do not take more than 4000mg in a day. - You may resume your previous medications unless otherwise instructed. Nutrition: - You may resume your normal diet as tolerated, focusing on liquids to keep yourself hydrated. Activity: - You may resume your normal activity as tolerated. Potential Issues: - It is normal to have some blood in the urine after the procedure and while you have a stent in place. Drink plenty of water and it should clear up. Contact the office if you are passing large clotsor unable to urinate. - Call the office if you have a fever greater than 101 F - Call the office if you have severe abdominal discomfort, nausea and vomiting, or feeling unwell Follow Up: - You will be contacted by the clinic for a follow up appointment with Dr. Serna. Questions or Concerns and Appointments (physicians work at both clinics so confirm your location ahead of your appointment) [facility] Urology Department Clinic at [facility] [address], [address], [address] [place] [address] Clinic After Hours [facility] Office Building Urology Clinic [address] [facility] [place] [address] Clinic After Hours documented in this encounter Medications at Time of Discharge acetaminophen (Tylenol) 500 MG tablet Take 2 tablets by mouth every 6 hours as needed. ibuprofen 200 MG tablet Take 3 tablets by mouth every 6 hours as needed for mild pain. naloxone (Narcan) 4 mg/0.1 mL nasal spray [...] day with dinner. 60 capsule 02/20/2025 5 phenazopyridine (Pyridium) 200 MG tablet Take 1 tablet by mouth 3 times a day as needed for pain, discomfort or irritation. 20 tablet 02/20/2025 5 senna-docusate sodium (Senokot-S) 8.6-50 MG tablet Take 1 tablet by mouth daily. 30 tablet 02/20/2025 5 sulfamethoxazole-tr imethoprim (Bactrim DS) 800-160 MG tabletIndications:P ostoperative surgical complication involving genitourinary system associated with genitourinary procedure, unspecified complication Take 2 tablets by mouth 2 times a day for 11 doses. 22 tablet 03/19/2025 5 colchicine (Colcrys) 0.6 MG tablet Take 1 tablet by mouth 2 times a day. 5 documented as of this encounter Miscellaneous Notes * Progress Notes - Meryl Alvarado RN - 03/19/2025 12:52 PM EDT Case Management Discharge Note Parth Pratt 70 y.o. male CSN: [id number] Admission: 03/17/2025 5:05 PM Primary Problem: Ureteropelvic junction (UPJ) obstruction, right Primary Clinical Education Coordinator: Assistance Available at Discharge: Family/Clinical Education Coordinator(s) Willingness Assessed to care for patient at home: Yes Family/Clinical Education Coordinator(s) Readiness Assessed to care for patient at home: Yes Housing Circumstances-Z Codes: Patient Referred to Financial or Community Resources: Discharge Facility/Level of Care Needs: Discharge Facility/Level of Care Needs: 1-Home or Self Care Patient's Choice of Community Agency(s): Patient/Family Anticipated Services at Transition: Patient/Family Anticipated Services at Transition: none DME/Equipment Needed after Discharge: Equipment Needed After Discharge: none Readmission Within the Last 30 Days: Readmission Within the Last 30 Days: no previous admission in last 30 days Medicare Documentation: Medicare Second Notice?: No (Less than 48 hrs from first notice.) Follow-up: Costa Sands MD [address] [facility] [address] Discharge Transportation: Transportation Anticipated: family or friend will provide Transportation Home at Discharge: Family/Friend will Provide Has discharge transport been arranged?: Yes What day is the transport expected?: 03/19/25 Follow Up Transport: Transportation Needed to Follow up Appoinments: Family/Friend will Provide Additional Comments: POC reviewed with primary team. Refer to primary team's discharge note for details. Medically readyto discharge today. Patient agrees to dc home today and agrees with above DC plan. In??s APRIL Garcia, digital content marketing manager * Consults - Bisi Chavez RD - 03/19/2025 10:53 AM EDT Pt reported food allergy in Nursing Nutrition Screen. Visited pt and confirmed food allergy of chocolate with rxn of dermatitis. Food allergies up to date in Epic and [employer]. Will Monitor. Bisi Chavez RD * Care Plan - Tami Ramírez RN - 03/19/2025 10:49 AM EDT Problem: Adult Inpatient Plan of Care Goal: Plan of Care Review Outcome: Ongoing, Progressing Flowsheets (Taken 03/19/2025 1049) Progress: improving Plan of Care Reviewed With: patient Goal: Patient-Specific Goal (Individualized) Outcome: Ongoing, Progressing Goal: Absence of Hospital-Acquired Illness or Injury Outcome: Ongoing, Progressing Goal: Optimal Comfort and Wellbeing Outcome: Ongoing, Progressing Goal: Readiness for Transition of Care Outcome: Ongoing, Progressing Problem: Fall Injury Risk Goal: Absence of Fall and Fall-Related Injury Outcome: Ongoing, Progressing Problem: Infection Goal: Absence of Infection Signs and Symptoms Outcome: Ongoing, Progressing * Discharge Summary - Laila Nunez MD - 03/19/2025 10:44 AM EDT Hospitalization Admit Date/Time: 03/17/2025 5:05 PM Admitting Attending: Talib Serna Discharge Date: 03/19/2025 Discharge Attending Physician: Talib Serna MD PCP name and Address: Thiago Gregory APRN [address] [place] [address] / [address] [address] Referring provider name and address: Costa Sands MD [address] [place] [id number] Chief Concern, Brief History of Present Illness, and Hospital Course Parth Pratt is a 70 y.o. male with PMH of ureteral obstruction at both the UPJ and UVJ who is now status post right robot assisted ureteral reimplantation, nephrostomy tube removal, and ureteral stent placement on 12/22/2024 and right robot assisted pyeloplasty on 02/17/2025. He was doing well post-op from his pyeloplasty and was seen by Dr. Serna on 03/16/25 for stent removal. Patient statesfollowing stent removal he began to experience significant right sided flank and abdominal pain. Was seen at OSH where CT imaging concerning for ureteral disruption at site of recent pyeloplasty. He was taken to the OR for Right ureteral stent placement on 03/17. He has had significant clinical impro vement with stent placement. On 03/19/25 the patients urethral catheter was removed and he was able to void independently withoutissue. The patient's hospital course was uncomplicated and it was felt that the patient had reached maximal benefit from hospitalization. They were deemed appropriate for discharge to home. On the day of discharge the patient's pain was controlled on oral medications, they were ambulating, voiding appropriately, passing flatus, and tolerating oral intake. The patient was discharged on 03/19/25 to home and will return to clinic with Dr. Serna. Surgeries and Procedures Procedures performed in this encounter Procedures Case Request Operating Room: URETEROSCOPY, COMPLEX URETEROSCOPY, COMPLEX (Right) Medication List .. acetaminophen 500 MG tablet Commonly known as: Tylenol Take 2 tablets by mouth every 6 hours as needed. colchicine 0.6 MG tablet Commonly known as: Colcrys Take 1 tablet by mouth 2 times a day. ibuprofen 200 MG tablet Take 3 tablets by mouth every 6 hours as needed for mild pain. methocarbamol 500 MG tablet Commonly known as: Robaxin Take 1 tablet by mouth 4 times a day for 5 days. naloxone 4 mg/0.1 mL nasal spray Commonly known as: Narcan 1. Give 1 spray in nostril for no/slow breathing or cannot wake after opioid use 2. Call 911 3. Repeat in other nostril if symptoms continue sulfamethoxazole-trimethoprim 800-160 MG tablet Commonly known as: Bactrim DS Take 2 tablets by mouth 2 times a day for 11 doses. tamsulosin 0.4 MG 24 hr capsule Commonly known as: Flomax Take 1 capsule by mouth 1 time each day with dinner. . oxyCODONE 5 MG immediate release tablet Commonly known as: Roxicodone Take 1 tablet by mouth every 6 hours as needed for severe pain for up to 5 doses. phenazopyridine 200 MG tablet Commonly known as: Pyridium Take 1 tablet by mouth 3 times a day as needed for pain, discomfort or irritation. senna-docusate sodium 8.6-50 MG tablet Commonly known as: Senokot-S Take 1 tablet by mouth daily. Where to Get Your Medications These medications were sent to [facility] - [place], [place] - [address], [facility] [address] sulfamethoxazole-trimethoprim 800-160 MG tablet Discharge Diagnosis Medical Problems Active and Resolved Hospital Problems Hospital * (Principal) Ureteropelvic junction (UPJ) obstruction, right Post Discharge Instructions Medications: - You should take 500mg Tylenol every 6 hours for mild - moderate pain. You may take up to 1000mg every 6 hours but do not take more than 4000mg in a day. - You may resume your previous medications unless otherwise instructed. Nutrition: - You may resume your normal diet as tolerated, focusing on liquids to keep yourself hydrated. Activity: - You may resume your normal activity as tolerated. Potential Issues: - It is normal to have some blood in the urine after the procedure and while you have a stent in place. Drink plenty of water and it should clear up. Contact the office if you are passing large clotsor unable to urinate. - Call the office if you have a fever greater than 101 F - Call the office if you have severe abdominal discomfort, nausea and vomiting, or feeling unwell Follow Up: - You will be contacted by the clinic for a follow up appointment with Dr. Serna. Questions or Concerns and Appointments (physicians work at both clinics so confirm your location ahead of your appointment) [facility] Urology Department Clinic at [address], [address], [address], [address] [place] [address] Clinic After Hours [facility] Office Building Urology Clinic [address] [facility] [address] [place] [address] Clinic After Hours Outpatient Follow-Up Future Appointments Date Time Provider Department Center 04/08/2025 9:10 AM Mayi Ballard [facility] 06/17/2025 12:[address] 1 [facility] 06/17/2025 1:30 PM Talib Serna MD [facility] Test Results Pending At Discharge Pending Labs Order Current Status Urine Culture Preliminary result Urine Culture Preliminary result Pertinent Physical Exam At Time of Discharge GEN: NAD HEENT: NCAT, EOMI RESP: Equal bilateral chest rise, normal work of breathing CV: RRR, appears well perfused ABD: Soft, nontender, nondistended EXT: No gross deformities MSK: Full ROM in BL UE NEURO: No focal deficits, AOx3 PSYCH: Normal mood and affect Discharge Disposition/Condition Disposition: Home Condition: Stable (s/sx potential problems absent or manageable) I spent >30 minutes of patient care and instruction time in preparation for this discharge. Cosigned by Talib Serna MD at 03/19/2025 12:59 PM EDT Associated attestation - Talib Serna MD - 03/19/2025 12:59 PM EDT I saw and evaluated the patient. I discussed the case with the resident/fellow and agree with the findings and plan as documented. * Hospital Course - Laila Nunez MD - 03/19/2025 10:41 AM EDT Parth Pratt is a 70 y.o. male with PMH of ureteral obstruction at both the UPJ and UVJ who is now status post right robot assisted ureteral reimplantation, nephrostomy tube removal, and ureteral stent placement on 12/22/2024 and right robot assisted pyeloplasty on 02/17/2025. He was doing well post-op from his pyeloplasty and was seen by Dr. Serna on 03/16/25 for stent removal. Patient statesfollowing stent removal he began to experience significant right sided flank and abdominal pain. Was seen at OSH where CT imaging concerning for ureteral disruption at site of recent pyeloplasty. He was taken to the OR for Right ureteral stent placement on 03/17. He has had significant clinical impro vement with stent placement. On 03/19/25 the patients urethral catheter was removed and he was able to void independently withoutissue. The patient's hospital course was uncomplicated and it was felt that the patient had reached maximal benefit from hospitalization. They were deemed appropriate for discharge to home. On the day of discharge the patient's pain was controlled on oral medications, they were ambulating, voiding appropriately, passing flatus, and tolerating oral intake. The patient was discharged on 03/19/25 to home and will return to clinic with Dr. Serna. * Care Plan - Nenita Spears RN - 03/19/2025 5:29 AM EDT Problem: Adult Inpatient Plan of Care Goal: Plan of Care Review Outcome: Ongoing, Progressing Flowsheets (Taken 03/19/2025526) Progress: improving Goal: Patient-Specific Goal (Individualized) Outcome: Ongoing, Progressing Flowsheets (Taken 03/18/20251999) Patient/Family-Specific Goals (Include Timeframe): Pt will remain free from fall/injury during thisshift Individualized Care Needs: safety Goal: Absence of Hospital-Acquired Illness or Injury Outcome: Ongoing, Progressing Goal: Optimal Comfort and Wellbeing Outcome: Ongoing, Progressing Goal: Readiness for Transition of Care Outcome: Ongoing, Progressing Problem: Fall Injury Risk Goal: Absence of Fall and Fall-Related Injury Outcome: Ongoing, Progressing Problem: Infection Goal: Absence of Infection Signs and Symptoms Outcome: Ongoing, Progressing * Progress Notes - Lj De Jesus MD - 03/18/2025 11:32 AM EDT [facility] Urology Inpatient Progress Note Primary Attending: Talib Serna MD Procedure(s): Right stent placement 03/17, Right pyeloplasty 02/17, ureteral reimplantation 12/22 SUBJECTIVE: NAEON. Patient resting comfortably in bed this AM. Patient was febrile to 102.1 early yesterday PM,but he has had significant clinical improvement since stent placement. He denies pain, fever, or chills. He is tolerating PO intake without N/V. He is passing flatus. No new complaints. PHYSICAL EXAM: Temp: [36.3 ??C (97.3 ??F)-38.9 ??C (102.1 ??F)] 36.5 ??C (97.7 ??F) Heart Rate: [72-95] 72 Resp: [12-28] 14 BP: (126-190)/(71-100) 135/84 SpO2: [91 %-98 %] 98 % I O Shift I O 24Hrs LDAs No intake/output data recorded. I/O last 3 completed shifts: In: 1143.7 (16.8 mL/kg) [P.O.:240; I.V.:795.2 (11.7 mL/kg); IV Piggyback:108.5] Out: 1450 (21.3 mL/kg) [Urine:1450 (0.6 mL/kg/hr)] Weight: 68 kg Urethral Catheter Double-lumen;Non-latex 16 Fr. (Active) Placement Date/Time: 03/17/252221 Inserted by: Hand Hygiene Completed: Yes Urethral Catherter Insertion Reason : Other (Comment) Catheter Type: Double-lumen;Non-latex Tube Size (Fr.): 16 Fr. Catheter Balloon Size: [address] Ureteral Drain/Stent Right ureter 7 Fr. (Active) Placement Date/Time: 03/17/252215 Present on Admission: No Inserted by: / Hand Hygiene Completed: Yes Location: Right ureter Tube Size (Fr.): (c) 7 Fr. Urine Returned: Yes GEN: NAD HEENT: NCAT, EOMI RESP: Equal bilateral chest rise, normal work of breathing CV: Regular rate, appears well perfused ABD: Nondistended : deferred EXT: No gross deformities MSK: Full ROM in BL UE NEURO: No focal deficits, alert and oriented PSYCH: Normal mood and affect LABS: Results from last 7 days Lab Units 03/18/25 0409 WBC 10*3/uL 17.56* HEMOGLOBIN g/dL 13.4* HEMATOCRIT % 40.3 PLATELETS 10*3/uL 201 Results from last 7 days Lab Units 03/18/25 0409 SODIUM mmol/L 138 POTASSIUM mmol/L 4.6 CHLORIDE mmol/L 104 CO2 mmol/L 24 BUN mg/dL 9 CREATININE mg/dL 0.68* EGFR mL/min/1.73m*2 99.4 GLUCOSE mg/dL 139* CALCIUM mg/dL 9.4 Results from last 7 days Lab Units 03/17/25 1828 COLOR UA Yellow SPEC GRAV U >1.030* PH UA 7.5 PROTEIN UR mg/dL 30* GLUCOSE UA mg/dL Negative KETONES UA mg/dL Trace* LEUKOCYTES UA Large* NITRITE UA Negative RBC, URINE /HPF 11 - 15* WBC, URINE /HPF >50* SQUAMOUS /HPF 0 - 2 BACTERIA UR HPF Present IMAGING: CT AP 03/17 (personally reviewed): Extravasation of contrast from right UPJ at site of prior pyeloplasty HOSPITAL PROBLEM LIST: Principal Problem: Ureteropelvic junction (UPJ) obstruction, right Urine leak fever ASSESSMENT: Parth Pratt is a 70 y.o. 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 Hewas doing well post-op from his pyeloplasty and was seen by Dr. Serna on 03/16/25 for stent removal. Patient states following stent removal he began to experience significant right sided flank and abdominal pain. Was seen at OSH where CT imaging concerning for ureteral disruption at site of recent pyeloplasty. He was taken to the OR for Right ureteral stent placement on 03/17. He has had significant clinical improvement with stent placement. We will continue antibiotics and supportive care. PLAN: - Continue Bactrim - MMPC - Regular diet - DC mIVF - DVT ppx, Lovenox - continue nash fr maximal jodi De Jesus MD Urology PGY-1 Cosigned by Juanis Yanez MD at 03/18/2025 12:43 PM EDT Associated attestation - Juanis Yanez MD - 03/18/2025 12:43 PM EDT I saw and evaluated the patient with the resident/fellow. I discussed the case with the resident/fellow and agree with the findings and plan as documented. * Care Plan - Julieth Pablo RN - 03/18/2025 10:43 AM EDT Problem: Adult Inpatient Plan of Care Goal: Plan of Care Review Outcome: Ongoing, Progressing Flowsheets Taken 03/18/2025 1043 by Julieth Pablo RN Progress: improving Taken 03/18/202549 by Khushi Manzano RN Plan of Care Reviewed With: patient * Care Plan - Khushi Manzano RN - 03/18/2025 12:50 AM EDT Problem: Adult Inpatient Plan of Care Goal: Plan of Care Review 03/18/202549 by Khushi Manzano RN Outcome: Ongoing, Progressing Flowsheets (Taken 03/18/202549) Progress: no change Plan of Care Reviewed With: patient Goal: Patient-Specific Goal (Individualized) 03/18/202549 by Khushi Manzano RN Outcome: Ongoing, Progressing Flowsheets (Taken 03/17/2025 2356) Patient/Family-Specific Goals (Include Timeframe): Pt will remain free from fall/injury during thi shift Individualized Care Needs: safety Anxieties, Fears or Concerns: none Goal: Absence of Hospital-Acquired Illness or Injury 03/18/202549 by Khushi Manzano RN Outcome: Ongoing, Progressing Goal: Optimal Comfort and Wellbeing 03/18/202549 by Khushi Manzano RN Outcome: Ongoing, Progressing Goal: Readiness for Transition of Care 03/18/202549 by Khushi Manzano RN Outcome: Ongoing, Progressing Problem: Fall Injury Risk Goal: Absence of Fall and Fall-Related Injury Outcome: Ongoing, Progressing Problem: Infection Goal: Absence of Infection Signs and Symptoms Outcome: Ongoing, Progressing * Anesthesia PACU Signout - Chris Bowen MD - 03/17/2025 11:06 PM EDT Patient: Parth Pratt Anesthesia Type: general Vitals Value Taken Time BP 134/73 03/17/25 23:00 Temp 36.9 ??C (98.4 ??F) 03/17/25 22:35 Pulse 89 03/17/25 23:05 Resp 22 03/17/25 23:05 SpO2 92 % 03/17/25 23:05 Vitals shown include unfiled device data. Anesthesia PACU Signout Patient location during evaluation: PACU Patient participation: complete - patient participated Level of consciousness: baseline and awake Pain management: adequate (pain score 0-3) Airway patency: natural airway Hydration status: acceptable PONV: none Cardiovascular status: acceptable and hemodynamically stable Respiratory status: acceptable, spontaneous ventilation, unassisted and nonlabored ventilation Discharge Disposition: admit to inpatient unit Cosigned by Benito Rosenbaum DO at 03/18/2025 1:19 AM EDT Associated attestation - Benito Rosenbaum DO - 03/18/2025 1:19 AM EDT Signature only. * Op Note - Allan Daley MD - 03/17/2025 8:00 PM EDT Operative Note Date: 03/17/25 Location: [place] [facility] Name: Parth Pratt, : 1955, Diagnoses: Pre-op Diagnosis Ureteropelvic junction (UPJ) obstruction, right Post-op Diagnosis Ureteropelvic junction (UPJ) obstruction, right Procedure(s): Cystoscopy with retrograde pyelogram Right diagnostic ureteroscopy Right ureteral stent placement Attending Surgeon(s): * Talib Serna - Primary Apartment Coordinator(s): * Allan Daley MD - Resident - Assisting Anesthesia: Choice ASA: ASA status not filed in the log. Blood Administration: Blood Product Administration History None Estimated Blood Loss: None Drains: Urethral Catheter Double-lumen;Non-latex 16 Fr. (Active) Site Assessment Clean;Skin intact 03/17/252234 CAUTI: Collection Container Standard drainage bag 03/17/252234 CAUTI: Securement Method Securing device (Describe) 03/17/252234 CAUTI: Specimen Collection Port Covered with Alcohol Cap Yes 03/17/252234 CAUTI: Urinary Catheter Necessity Yes, meets criteria 03/17/252234 CAUTI: Urinary Catheter Necessity Reasons Recent surgery contiguous with urinary tract/TIRE LAYER/colorectal 03/17/252234 Ureteral Drain/Stent Right ureter 7 Fr. (Active) Implants Type Name Action Serial No. Stent STENT URETERAL TRIA FIRM MONOFILAMENT 7F/22CM - [id number] Implanted Specimen: Specimens ID Source Frozen? A Kidney, Right Description: URINE-RIGHT KIDNEY Findings: - Patent reimplanted ureter in right upper dome of bladder - Fluoroscopy of right kidney revealed retained IV contrast from OSH imaging - Right retrograde pyelogram with contrast extravasation at proximal ureter - Right ureteroscopy with no obvious disruption of prior pyeloplasty; there was inflammation at proximal ureter with a stitch protruding into the lumen. The proximal ureter was initially tight but was eventually able to accommodate our flexible ureteroscope - Successful placement of a right ureteral stent 7 Fr x 22 cm Tria without strings Indications: Parth Pratt is an 70 y.o. 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 He was doing well post-op from his pyeloplasty and was seen by Dr. Serna yesterday for stent removal. Patient states following stent removal he began to experience significant right sided flank and abdominal pain. Was seen at OSH where CT imaging concerning for ureteral disruption at site of recentpyeloplasty. Going to OR for right diagnostic ureteroscopy, possible stent versus PCNT placement. Narrative: After informed consent was obtained, the patient was brought into the surgical suite. He was placedin dorsal lithotomy. General anesthesia was administered, SCDs were placed on the patient and preoperative antibiotics were administered prior to the start of the case. A time out was performed with everyone in the room in agreement regarding the patient, procedure and laterality being performed. We began by placing the cystoscope into the bladder. The bladder did not have any intravesical masses, lesions, or stones. A renal fluoroscopic image was taken showing retained contrast in the right kidney from the prior CT scan. We gently inserted a Sensor wire up the right reimplanted ureteral orifice under live fluoroscopy and watched it curl in the upper pole of the right kidney. Next, we inserted our flexible ureteroscope alongside the wire up to the proximal ureter. The ureter was normal caliber up to the proximal ureter. At the proximal ureter, there was an area of inflammation and a stitch was seen protruding into the lumen. Our wire was passed beyond this segment into the kidney. We did not visualize any ureteral disruption. The scope was then able to pass into the kidney. We collected right renal urine for culture. The kidney was drained. We slowly backed out our scope and placed a second Sensor wire into the kidney. We then used a duallumen catheter over one of our wires to inject contrast in a retrograde fashion. The retrograde pyelogram revealed contrast extravasation at the proximal ureter. We then backloaded our wire onto our scope and placed a 7 Fr x 22 cm Tria stent over our wire through the scope to the right kidney. The two wires were removed. Fluoroscopy revealed a proximal curl in the right renal pelvis and a distal curl was seen in the bladder. A 16 Fr Nash was placed and filled with 10 mL of sterile water. This concluded the case. The patient was taken to PACU in stable condition. Complications: None; patient tolerated the procedure well. PLAN: - Plan for relook right ureteroscopy in [address] Serna - Will reevalaute symptoms in morning; if continuing to have pain will keep Nash in place and planfor continued admission. If pain is improved, can consider Nash removal and discharge home - Plan for discharge home on 7 days of PO antibiotics Submitted by: Allan Daley MD - 03/18/2025 Cosigned by Talib Serna MD at 03/29/2025 9:54 AM EDT * H&P - Allan Daley MD - 03/17/2025 6:17 PM EDTAssociated Order(s): Consult to Urology Consult to Urology Consult performed by: Allan Daley MD Consult ordered by: Michelle Craig MD [facility] Urology Consult Note 03/17/25 Service Requesting Consultation: ED CC: right hydronephrosis HPI: Parth Pratt is a 70 y.o. 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 He was doing well post-op from his pyeloplasty and was seen by Dr. Serna yesterday for stent removal. Patient states following stent removal he began to experience significant right sided flank and abdominal pain.He states he tried to take tylenol and ibuprofen last night which helped some with pain but awoke this morning to persistent pain prompting him to visit [facility] ED. At OSH ED, labs notable for WBC of 15.1, creatinine of 0.80 (baseline 0.6-0.7), and UA with 2+ blood, nitrite negative, and 2+ leukocytes. He was started on Rocephin. CT imaging obtained noting righthydronephrosis and contrast extravasation outside of collecting system at the proximal ureter. He was transferred to for further management. At , he is afebrile, HDS. Pain is modestly controlled. He denies difficulty voiding but notes he has urinating small volumes since his stent came out. He endorses intermittent blood tinged urine. He denies nausea/vomiting. Past Medical History: Past Medical History[1] Past Surgical History:: Surgical History[2] Family History: Family History[3] Social History: Social History[4] PHYSICAL EXAM: Temp: [37.6 ??C (99.6 ??F)] 37.6 ??C (99.6 ??F) Heart Rate: [87] 87 Resp: [17] 17 BP: (190)/(100) 190/100 SpO2: [97 %] 97 % No intake/output data recorded. No intake/output data recorded. GEN: NAD HEENT: NCAT, EOMI RESP: Equal bilateral chest rise, normal work of breathing CV: Appears well perfused, normal rate, hypertensive ABD: RLQ signfifcantly tender to palpation with voluntary guarding. R flank very tender to palpation. LLQ and L flank are non tender to palpation. Abdomen overall is soft and non distended. : Deferred EXT: No gross deformities MSK: Normal ROM in BL UE NEURO: No focal deficits, AOx3 PSYCH: Appropriate mood and affect LABS: labs pending. OSH labs: WBC 15.1 Cr 0.80 UA 2+ leukocytes, negative nitrites Imaging: OSH CT 03/17: Reviewed. Right hydronephrosis to level of proximal ureter with appearance of contrast extravasation at site of pyeloplasty. Left kidney and bladder appear normal. Hospital Problem List: Active Problems: There are no active Hospital Problems. Assessment: Parth Pratt is a 70 y.o. 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 Hewas doing well post-op from his pyeloplasty and was seen by Dr. Serna yesterday for stent removal.Patient states following stent removal he began to experience significant right sided flank and abdominal pain. Was seen at OSH where CT imaging concerning for ureteral disruption at site of recent pyeloplasty. Discussed going to OR tonight for diagnostic ureteroscopy, possible stent versus PCNT [facility] patient is agreeable. Does not wish to pursue nephrectomy at this immediate time. He is NPO. Plan: - to OR for right diagnostic ureteroscopy, retrograde pyelogram, possible stent placement, possiblenephrostomy tube placement - NPO - Admit to urology - [facility] - Trend labs Allan Daley MD PGY-2 Urology [1] Past Medical History: Diagnosis Date Alcohol abuse 07/01/2024 Arthritis Contact dermatitis 07/01/2024 Encephalopathy 07/01/2024 Essential hypertension 04/25/2022 Heberden's nodes of left hand 07/01/2024 Hypertensive encephalopathy syndrome 07/01/2024 Infectious viral hepatitis Hep C-taken the cure recently Irritable bowel syndrome mild case-diagnosed after colonoscopy 2018 Joint pain Motion sickness as a child Pain of left thumb 07/01/2024 Poison rashida dermatitis 07/01/2024 Subcutaneous nodule of left thumb 07/01/2024 Tobacco dependence due to cigarettes 07/01/2024 UTI (urinary tract infection) 01/2025 on bactrim for 10 days [2] Past Surgical History: Procedure Laterality Date COLONOSCOPY CYSTOSCOPY 12/15/2024 ([facility]) cystosopy, ANTEGRADE URETEROSCOPY, right nephrostomy tube exchange (Ureter) URETEROSCOPY (Right) INSERTION OR REPLACEMENT, NEPHROSTOMY TUBE (Right) HIP ARTHROPLASTY Bilateral HIP SURGERY Right to replace recalled loli device KIDNEY STONE SURGERY LIVER BIOPSY NEPHROSTOMY 12/04/2024 ([facility]) INSERTION OR REPLACEMENT, NEPHROSTOMY TUBE (Right) PROSTATE BIOPSY SHOULDER SURGERY Left cadaver tendon placed in shoulder TONSILLECTOMY UPPER GASTROINTESTINAL ENDOSCOPY URETEROSCOPY 11/30/2024 ([facility]) URETEROSCOPY, RIGHT RETROGRADE (Right) CYSTOSCOPY (Bladder) [3] Family History Problem Relation Name Age of Onset Hyperthyroidism Sister Malkarena Hyperthermia Neg Hx [4] Social History Tobacco Use Smoking status: Former [...] Yes Types: Marijuana Comment: 4 times weekly Cosigned by Talib Serna MD at 03/17/2025 8:08 PM EDT Associated attestation - Talib Serna MD - 03/17/2025 8:08 PM EDT I saw and evaluated the patient. I discussed the case with the resident/fellow and agree with the findings and plan as documented. * ED Provider Notes - Kenya Omalley DO - 03/17/2025 5:05 PM EDT Images from the original note were not included. - HPI Chief Complaint Patient presents with Flank Pain HPI Parth Pratt is a 70 y.o. male with past medical history of ureteral obstruction s/p reimplantation, nephrostomy tube removal and ureteral stent placement/right robot assisted pyeloplasty who presents to the emergency department with complaints of flank pain/abdominal pain. Patient reports yester day he had his right ureteral stent removed at urology clinic and following that encounter, developed progressively worsening right flank/right abdominal pain. Presented to outside hospital today where he was found to have significant right sided hydronephrosis and intraperitoneal free fluid concerning for ureter rupture. Urology was consulted and they recommended to transferred to EKG for further evaluation. OSH administered IV Tylenol, Rocephin and obtain a laboratory workup that included blood cultures. On arrival to our ED, patient is nontoxic appearing but appears uncomfortable secondaryto pain. Patient History Past Medical History[1] Surgical History[2] Family History[3] Social History[4] Allergies: Allergies[5] Physical Exam ED Triage Vitals [03/17/25 1717] Temp Heart Rate Resp BP 37.6 ??C (99.6 ??F) 87 17 (!) 190/100 SpO2 Temp Source Heart Rate Source Patient Position 97 % Oral -- -- BP Location FiO2 (%) -- -- Physical Exam Vitals and nursing note reviewed. Constitutional: General: He is not in acute distress. Appearance: He is well-developed. HENT: Head: Normocephalic and atraumatic. Eyes: Conjunctiva/sclera: Conjunctivae normal. Cardiovascular: Rate and Rhythm: Normal rate and regular rhythm. Heart sounds: No murmur heard. Pulmonary: Effort: Pulmonary effort is normal. No respiratory distress. Breath sounds: Normal breath sounds. Abdominal: General: Abdomen is flat. Palpations: Abdomen is soft. Tenderness: There is abdominal tenderness in the right upper quadrant, right lower quadrant, periumbilical area and suprapubic area. There is right CVA tenderness, guarding and rebound. There is no left CVA tenderness. Musculoskeletal: General: No swelling. Cervical back: Neck supple. Skin: General: Skin is warm and dry. Capillary Refill: Capillary refill takes less than 2 seconds. Neurological: Mental Status: He is alert. Psychiatric: Mood and Affect: Mood normal. EASI ?? Total Score: 0 [place] Coma Scale Score: 15 Mini Nutritional Screening Score : 13 TRST Assessment Total: 1 ED Course & MDM - Assessment: 70 y.o. male presents to ED with complaint of flank pain. It should be noted that the chronic conditions includes ureteral obstruction s/p reimplantation, nephrostomy tube removal and ureteral stent placement/right robot assisted pyeloplasty , which currently is not at goal therapy. This complicates the clinical picture because it Comorbidities: may be exacerbating symptoms, increases the amount and complexity of data to be reviewed, and complicates the clinical workup Differential Diagnosis: Differential diagnosis includes but is not limited to postoperative complication, perinephric abscess, ureteral obstruction, ureteral rupture, pneumoperitoneum, intra-abdominal abscess, among others In order to fully explore the differential diagnosis the following treatments and tests were ordered: All Other Orders Ordered Status Ordering Provider 03/17/251826 Hemogram (CBC) Morning draw Acknowledged ALLAN DALEY 03/17/251826 Basic metabolic panel Morning draw Acknowledged ALLAN DALEY 03/17/251826 Ambulate patient 4 times daily Acknowledged ALLAN DALEY 03/17/251826 Vital Signs (Every 4 hours) Every 4 hours Acknowledged ALLAN DALEY 03/17/251826 Check pulse oximetry (Every 4 hours) Every 4 hours Acknowledged ALLAN DALEY 03/17/251826 Intake and Output (Every 4 hours) Every 4 hours Acknowledged ALLAN DALEY 03/17/251826 Do Not Give Nicotine Replacement Until discontinued Acknowledged ALLAN DALEY 03/17/251826 Mobility Orders Until discontinued Acknowledged ALLAN DALEY 03/17/251826 Out of Bed Until discontinued Acknowledged ALLAN DALEY 03/17/251826 Notify Provider Until discontinued Acknowledged ALLAN DALEY 03/17/251826 Insert peripheral IV Once Placed in And Linked Group Acknowledged ALLAN DALEY 03/17/251826 Saline lock IV Once Placed in And Linked Group Acknowledged ALLAN DALEY 03/17/251826 Do NOT transfer patient to [facility] without chief resident or attending apporval Until discontinued Acknowledged ALLAN DALEY 03/17/25 1827 Admit to inpatient Once Acknowledged ALLAN DALEY Consuelo 03/17/25 1827 Full code Continuous Acknowledged EDI ALLAN Consuelo 03/17/25 1820 Skin prep Once Acknowledged DALEY ALLAN Consuelo 03/17/25 1820 Hibiclens Scrub Until discontinued Comments: Shower/scrub evening before and morning of procedure; include 5 minutes scrub each time to operative site with chlorhexidine gluconate 4% (Hibiclens). Acknowledged EDI ALLAN Consuelo 03/17/25 1820 Void front maker lockstitch to OR Once Acknowledged ALLAN DALEY 03/17/25 1820 Case Request Operating Room: URETEROSCOPY, COMPLEX Once Completed ALLAN DALEY 03/17/25 1732 CBC w/diff STAT Final result KENYA OMALLEY 03/17/25 1732 CMP STAT Final result KENYA OMALLEY 03/17/25 1732 Urinalysis with reflex microscopic AND reflex culture (IF UTI SUSPECTED) STAT Final result KENYA OMALLEY 03/17/25 1732 NPO diet Diet effective now Acknowledged KENYA OMALLEY 03/17/25 1732 Urinalysis with reflex microscopic (Culture NOT Included) PROCEDURE ONCE Final result KENYA OMALLEY 03/17/25 1732 Urine Barlow Panel PROCEDURE ONCE Final result KENYA OMALLEY 03/17/25 1729 Consult to Urology Once Specialty: Urology Provider: (Not yet assigned) Completed KENYA OMALLEY ED Course as of 03/17/252210Mar 17, 2025 1729 Paged urology at this time. They agreed to evaluate the patient in the emergency department, recommended obtaining basic laboratory workup and urinalysis. Also recommended making patient nothingby mouth. [TK] ED Course User Index [TK] Kenya Omalley, DO Clinical Impressions as of 03/17/252210 Right flank pain Postoperative surgical complication involving genitourinary system associated with genitourinary procedure, unspecified complication Social Determinates of Health Risks (including Economic Stability, Education and level of understanding, Healthcare access and quality and concerning social factors): None identified on this visit Ultimately, this patient was Was admitted (Admission) The primary encounter diagnosis was Postoperative surgical complication involving genitourinary system associated with genitourinary procedure, unspecified complication. Diagnoses of Ureteropelvic junction (UPJ) obstruction, right and Right flank pain were also pertinent to this visit.. Patient believed to require admission for the listed diagnoses. The urology service was consulted for admission and was agreeable to admit to Acute Floor (Med/Surg). ED Prescriptions None Disposition Admit Admitting/Attending Physician: TALIB SERNA [[id number]] Provider Care Team: [facility] [180] Are they the primary team?: Yes [1] - [1] Past Medical History: Diagnosis Date Alcohol abuse 07/01/2024 Arthritis Contact dermatitis 07/01/2024 Encephalopathy 07/01/2024 Essential hypertension 04/25/2022 Heberden's nodes of left hand 07/01/2024 Hypertensive encephalopathy syndrome 07/01/2024 Infectious viral hepatitis Hep C-taken the cure recently Irritable bowel syndrome mild case-diagnosed after colonoscopy 2018 Joint pain Motion sickness as a child Pain of left thumb 07/01/2024 Poison rashida dermatitis 07/01/2024 Subcutaneous nodule of left thumb 07/01/2024 Tobacco dependence due to cigarettes 07/01/2024 UTI (urinary tract infection) 01/2025 on bactrim for 10 days [2] Past Surgical History: Procedure Laterality Date COLONOSCOPY CYSTOSCOPY 12/15/2024 ([facility]) cystosopy, ANTEGRADE URETEROSCOPY, right nephrostomy tube exchange (Ureter) URETEROSCOPY (Right) INSERTION OR REPLACEMENT, NEPHROSTOMY TUBE (Right) HIP ARTHROPLASTY Bilateral HIP SURGERY Right to replace recalled loli device KIDNEY STONE SURGERY LIVER BIOPSY NEPHROSTOMY 12/04/2024 ([facility]) INSERTION OR REPLACEMENT, NEPHROSTOMY TUBE (Right) PROSTATE BIOPSY SHOULDER SURGERY Left cadaver tendon placed in shoulder TONSILLECTOMY UPPER GASTROINTESTINAL ENDOSCOPY URETEROSCOPY 11/30/2024 ([facility]) URETEROSCOPY, RIGHT RETROGRADE (Right) CYSTOSCOPY (Bladder) [3] Family History Problem Relation Name Age of Onset Hyperthyroidism Sister Malig Hyperthermia Neg Hx [4] Tobacco Use Smoking status: Former Average packs/day: [...] Yes Types: Marijuana Comment: 4 times weekly [5] Allergies Allergen Reactions Chocolate Dermatitis Prochlorperazine Nausea Muscle tightness (neck) Kenya Omalley DO Resident 03/17/251 Cosigned by Michelle Craig MD at 03/17/2025 10:31 PM EDT Associated attestation - Michelle Craig MD - 03/17/2025 10:31 PM EDT I saw and evaluated the patient with the resident/fellow. I discussed the case with the resident/fellow and agree with the findings and plan as documented. * ED Triage Notes - Krystal Rabago, RN - 03/17/2025 5:05 PM EDT Per expect note: concerned for urerter rupture; 70 yo male who follows with Dr. Serna and had stent removed yesterday; he is peritonitic; Scan shows hydronephrosis and intraperitoneal fluid and stranding around the kidney; case d/w Dr. Serna who was also able to review the images; cr 0.8, WBC 15;he wants to do another CT abd without contrast to see if any of the contrast has moved into the collecting system documented in this encounter Plan of Treatment Upcoming Encounters Date Type Department Care Team (Latest Contact Info) Description 04/29/2025 9:00 AM EDT Office Visit Medical Office Building Urology [facility] [address] [facility], [address] [place] [address] Talib Serna MD [address] [place] [address] 05/17/2025 10:35 AM EDT Hospital Encounter [facility] [address] [place] [address] Talib Serna MD [address] [address] 05/17/2025 10:35 AM EDT - 05/17/2025 12:05 PM EDT Surgery [facility] [address] [place] [id number] Talib Serna MD [address] [address] URETEROSCOPY, WITH BIOPSY WITH POSSIBLE R URETERAL STENT EXCHANGE [36351 (CPT )] 06/17/2025 12:00 PM EDT Appointment [facility] [address] [place] [address] 06/17/2025 1:30 PM EDT Office Visit Medical Office Building Urology [address] [facility], [address] [place] [address] Talib Serna MD [address] [address] 10/21/2025 11:00 AM EST Office Visit [facility] [address] [place] [address] Mayi Ballard MD [address] [facility] [address] [place] [id number] Scheduled Procedures Name Priority Associated Diagnoses Date/Ti me URETEROSCOPY, WITH BIOPSY Ureteropelvic junction (UPJ) obstruction, right 05/17/2025 10:35 AM EDT documented as of this encounter Procedures Procedure Name Priority Date/Time Associated Diagnosis Comments CBC W/O DIFFERENTIAL Routine 03/18/2025 4:09 AM EDT BASIC METABOLIC PANEL, PLASMA Routine 03/18/2025 4:09 AM EDT FL LESS THAN 1 HOUR (NON-REPORTABLE) Routine 03/17/2025 10:40 PM EDT URINE CULTURE Routine 03/17/2025 10:09 PM EDT Ureteropelvic junction (UPJ) obstruction, right GA CYSTO/URETERO/PYELOSCO PY, DX 03/17/2025 9:21 PM EDT Ureteropelvic junction (UPJ) obstruction, right SEND OMA MESSAGE STAT 03/17/2025 6: 28 PM EDT URINALYSIS WITH REFLEX MICROSCOPIC AND CULTURE STAT 03/17/2025 6:28 PM EDT URINE BARLOW PANEL STAT 03/17/2025 6:28 PM EDT URINALYSIS MICROSCOPIC FOR UA REFLEX STAT 03/17/2025 6:28 PM EDT URINALYSIS WITH REFLEX MICROSCOPIC STAT 03/17/2025 6:28 PM EDT CBC WITH AUTO DIFFERENTIAL STAT 03/17/2025 6:28 PM EDT URINE CULTURE STAT 03/17/2025 6:28 PM EDT COMPREHENSIVE METABOLIC PANEL, PLASMA STAT 03/17/2025 6:28 PM EDT documented in this encounter Results * (ABNORMAL) Basic metabolic panel (03/18/2025 4:09 AM EDT) Glucose, Plasma 139(H) 74 - 99 mg/dL 03/18/2025 4:56 AM EDT [facility] BUN, Plasma 9 8 - 23 mg/dL 03/18/2025 4:56 AM EDT [facility] Creatinine, Plasma 0.68(L) 0.70 - 1.20 mg/dL 03/18/2025 4:56 AM EDT [facility] BUN/Creatinine Ratio 13 03/18/2025 4:56 AM EDT [facility] Sodium, Plasma 138 136 - 145 mmol/L 03/18/2025 4:56 AM EDT [facility] Potassium, Plasma 4.6 3.6 - 4.9 mmol/L 03/18/2025 4:56 AM EDT [facility] Chloride, Plasma 104 97 - 107 mmol/L 03/18/2025 4:56 AM EDT [facility] CO2, Plasma 24 22 - 29 mmol/L 03/18/2025 4:56 AM EDT [facility] Anion Gap 10 6 - 16 mmol/L 03/18/2025 4:56 AM EDT [facility] Total Calcium, Plasma 9.4 8.9 - 10.2 mg/dL 03/18/2025 4:56 AM EDT [facility] eGFRcr 99.4 mL/min/1.7 3m*2 03/18/2025 4:56 AM EDT [facility] Comment:Reported eGFRcr in m L/min/1.73m2 is based the CKD-EPI 2020 equation that does not use a race coefficient. Blood Venous blood specimen / Unknown Venipuncture / Unknown 03/18/2025 4:09 AM EDT 03/18/2025 4:27 AM EDT us Talib Serna MD LAB BLOOD ORDERABLES Final Res ult [facility] [address] [place] [address] * (ABNORMAL) Hemogram (CBC) (03/18/2025 4:09 AM EDT) WBC Count 17.56(H) 3.70 - 10.30 10*3/uL LAB HEMATOLOGY METHOD 03/18/2025 4:38 AM EDT [facility] RBC Count 4.47(L) 4.60 - 6.10 10*6/uL LAB HEMATOLOGY METHOD 03/18/2025 4:38 AM EDT [facility] HGB 13.4(L) 13.7 - 17.5 g/dL LAB HEMATOLOGY METHOD 03/18/2025 4:38 AM EDT [facility] HCT 40.3 40.0 - 51.0 % LAB HEMATOLOGY METHOD 03/18/2025 4:38 AM EDT [facility] Platelet Count 201 155 - 369 10*3/uL LAB HEMATOLOGY METHOD 03/18/2025 4:38 AM EDT [facility] MCV 90 79 - 98 fL LAB HEMATOLOGY METHOD 03/18/2025 4:38 AM EDT [facility] MCH 30.0 26.0 - 32.0 pg LAB HEMATOLOGY METHOD 03/18/2025 4:38 AM EDT [facility] MCHC 33.3 30.7 - 35.5 g/dL LAB HEMATOLOGY METHOD 03/18/2025 4:38 AM EDT [facility] RDW 13.2 11.5 - 14.5 % LAB HEMATOLOGY METHOD 03/18/2025 4:38 AM EDT [facility] MPV 10.8 8.8 - 12.5 fL LAB HEMATOLOGY METHOD 03/18/2025 4:38 AM EDT [facility] nRBC 0.0 <=0.0 per 100 WBCs LAB HEMATOLOGY METHOD 03/18/2025 4:38 AM EDT [facility] Blood Venous blood specimen / Unknown Venipuncture / Unknown 03/18/2025 4:09 AM EDT 03/18/2025 4:27 AM EDT us Talib Serna MD LAB BLOOD ORDERABLES Final Res ult [facility] [address] [place] [address] * [place] Less than 1 Hour Intraoperative (03/17/2025 10:40 PM EDT) Narrative IMAGING - 03/17/2025 10:40 PM EDT Images were obtained for surgical purposes. See Talib Serna's surgical note in the patient's chart for the findings. us Talib Serna MD IMG FLUOROSCOPY PROCEDURES Fin al Result IMAGING * (ABNORMAL) Urine Culture (03/17/2025 10:09 PM EDT) Culture 1,000 - 10,000 CFU/mL Lucie albicans(A) 03/20/2025 7:41 AM EDT [facility] Comment: This isolate has been identified using the FDA Approved MALDI Biotyper CA System Edited result: Previously reported as Yeast on 03/18/2025 at 2123 EDT. Urine Right kidney structure / Unknown 03/17/2025 10:09 PM EDT 03/17/2025 11:55 PM EDT Comment:Pre-op diagnosis: Ureteropelvic junction (UPJ) obstruction, right [N13.5] us Talib Serna MD LAB MICROBIOLOGY - GENERAL ORD ERABLES Final Result Performing Organization Address [facility] Co de Phone Number [facility] [address] [place] [address] * SEND OMA MESSAGE (03/17/2025 6:28 PM EDT) Urine Urine specimen obtained by clean catch procedure / Unknown Non-blood Collection / Unknown 03/17/2025 6:28 PM EDT 03/17/2025 7:12 PM EDT Michelle Craig MD LAB URINE ORDERABLES Final Re sult Performing Organization Address [facility] Co de Phone Number [facility] [address] [place] [address] * (ABNORMAL) Urine Culture (03/17/2025 6:28 PM EDT) Culture 10,000 - 100,000 CFU/mL Lucie albicans(A) 03/20/2025 7:40 AM EDT [facility] Comment: This isolate has been identified using the FDA Approved MALDI [employer]oty[employer] CA System Edited result: Previously reported as Yeast on 03/18/2025 at 1726 EDT. Urine Urine specimen obtained by clean catch procedure / Unknown Non-blood Collection / Unknown 03/17/2025 6:28 PM EDT 03/17/2025 7:12 PM EDT Michelle Craig MD LAB MICROBIOLOGY - GENERAL OR DERABLES Final Result Performing Organization Address City/[facility]/ZIP Co de Phone Number [facility] [address] [place] [address] * Urinalysis Microscopic Examination (03/17/2025 6:28 PM EDT) Urine Urine specimen obtained by clean catch procedure / Unknown Non-blood Collection / Unknown 03/17/2025 6:28 PM EDT 03/17/2025 6:43 PM EDT Michelle Craig MD LAB URINE ORDERABLES Final Re sult Performing Organization Address City/[facility]/ZIP Co de Phone Number [facility] [address] [place] [address] * Urine Barlow Panel (03/17/2025 6:28 PM EDT) Extra Sent for Culture 03/17/2025 9:02 PM EDT [facility] Urine Urine specimen obtained by clean catch procedure / Unknown Non-blood Collection / Unknown 03/17/2025 6:28 PM EDT 03/17/2025 7:12 PM EDT Michelle Craig MD LAB URINE ORDERABLES Final Re sult Performing Organization Address [facility] Co de Phone Number [facility] [address] [place] [address] * (ABNORMAL) Urinalysis with reflex microscopic (Culture NOT Included) (03/17/2025 6:28 PM EDT) Color, Urine Yellow LAB URINALYSIS - AUTOMATED METHOD 03/17/2025 7:38 PM EDT [facility] Clarity, Urine Cloudy LAB URINALYSIS - AUTOMATED METHOD 03/17/2025 7:38 PM EDT [facility] Spec [place], Urine >1.030(H) 1.005 - 1.030 LAB URINALYSIS - AUTOMATED METHOD 03/17/2025 7:38 PM EDT [facility] pH, Urine 7.5 5.0 - 8.0 LAB URINALYSIS - AUTOMATED METHOD 03/17/2025 7:38 PM EDT [facility] Protein, Urine 30(A) Negative mg/dL LAB URINALYSIS - AUTOMATED METHOD 03/17/2025 7:38 PM EDT [facility] Glucose, Urine Negative Negative mg/dL LAB URINALYSIS - AUTOMATED METHOD 03/17/2025 7:38 PM EDT [facility] Ketones, Urine Trace(A) Negative mg/dL LAB URINALYSIS - AUTOMATED METHOD 03/17/2025 7:38 PM EDT [facility] Blood, Urine Moderate(A) Negative LAB URINALYSIS - AUTOMATED METHOD 03/17/2025 7:38 PM EDT [facility] Bilirubin, Urine Negative Negative LAB URINALYSIS - AUTOMATED METHOD 03/17/2025 7:38 PM EDT [facility] Urobilinogen, Urine 1.0 0.2 to 1.0 mg/dL LAB URINALYSIS - AUTOMATED METHOD 03/17/2025 7:38 PM EDT [facility] Leukocytes, Urine Large(A) Negative LAB URINALYSIS - AUTOMATED METHOD 03/17/2025 7:38 PM EDT [facility] Nitrite, Urine Negative Negative LAB URINALYSIS - AUTOMATED METHOD 03/17/2025 7:38 PM EDT [facility] RBC, Urine 11 - 15(A) 0 to 3 /HPF LAB URINALYSIS - AUTOMATED METHOD 03/17/2025 7:38 PM EDT [facility] Comment:This result was prev iously suppressed from the chart. WBC, Urine >50(A) 0 to 5 /HPF LAB URINALYSIS - AUTOMATED METHOD 03/17/2025 7:38 PM EDT [facility] Comment:This result was prev iously suppressed from the chart. Squamous Epithelial Cells 0 - 2 0 to 5 /HPF LAB URINALYSIS - AUTOMATED METHOD 03/17/2025 7:38 PM EDT [facility] Comment:This result was prev iously suppressed from the chart. Hyaline Casts 3 - 5 0 to 5 /LPF LAB URINALYSIS - AUTOMATED METHOD 03/17/2025 7:38 PM EDT [facility] Comment:This result was prev iously suppressed from the chart. Bacteria, Urine Present Negative LAB URINALYSIS - AUTOMATED METHOD 03/17/2025 7:38 PM EDT [facility] Comment:This result was prev iously suppressed from the chart. Urine Urine specimen obtained by clean catch procedure / Unknown Non-blood Collection / Unknown 03/17/2025 6:28 PM EDT 03/17/2025 6:43 PM EDT us Michelle Craig MD LAB URINE ORDERABLES Final Re sult [facility] [address] [place] [address] * (ABNORMAL) CMP (03/17/2025 6:28 PM EDT) Glucose, Plasma 107(H) 74 - 99 mg/dL 03/17/2025 7:07 PM EDT [facility] BUN, Plasma 11 8 - 23 mg/dL 03/17/2025 7:07 PM EDT [facility] Creatinine, Plasma 0.75 0.70 - 1.20 mg/dL 03/17/2025 7:07 PM EDT [facility] BUN/Creatinine Ratio 15 03/17/2025 7:07 PM EDT [facility] Sodium, Plasma 137 136 - 145 mmol/L 03/17/2025 7:07 PM EDT [facility] Potassium, Plasma 4.1 3.6 - 4.9 mmol/L 03/17/2025 7:07 PM EDT [facility] Chloride, Plasma 102 97 - 107 mmol/L 03/17/2025 7:07 PM EDT [facility] CO2, Plasma 23 22 - 29 mmol/L 03/17/2025 7:07 PM EDT [facility] Anion Gap 12 6 - 16 mmol/L 03/17/2025 7:07 PM EDT [facility] Total Calcium, Plasma 9.0 8.9 - 10.2 mg/dL 03/17/2025 7:07 PM EDT [facility] Total Protein 6.9 6.3 - 7.9 g/dL 03/17/2025 7:07 PM EDT [facility] Albumin, Plasma 3.8 3.5 - 5.2 g/dL 03/17/2025 7:07 PM EDT [facility] AST, Plasma 14 10 - 50 U/L 03/17/2025 7:07 PM EDT [facility] ALT, Plasma 13 10 - 50 U/L 03/17/2025 7:07 PM EDT [facility] Alkaline Phosphatase, Plasma 66 40 - 115 U/L 03/17/2025 7:07 PM EDT [facility] Total Bilirubin, Plasma 0.7 0.2 - 1.1 mg/dL 03/17/2025 7:07 PM EDT [facility] eGFRcr 96.5 mL/min/1.7 3m*2 03/17/2025 7:07 PM EDT [facility] Comment:Reported eGFRcr in m L/min/1.73m2 is based the CKD-EPI 2020 equation that does not use a race coefficient. Blood Venous blood specimen / Unknown Venipuncture / Unknown 03/17/2025 6:28 PM EDT 03/17/2025 6:43 PM EDT us Michelle Craig MD LAB BLOOD ORDERABLES Final Re sult [facility] [address] [place] [address] * (ABNORMAL) CBC w/diff (03/17/2025 6:28 PM EDT) WBC Count 15.45(H) 3.70 - 10.30 10*3/uL LAB HEMATOLOGY METHOD 03/17/2025 6:48 PM EDT [facility] RBC Count 4.48(L) 4.60 - 6.10 10*6/uL LAB HEMATOLOGY METHOD 03/17/2025 6:48 PM EDT [facility] HGB 13.5(L) 13.7 - 17.5 g/dL LAB HEMATOLOGY METHOD 03/17/2025 6:48 PM EDT [facility] HCT 39.9(L) 40.0 - 51.0 % LAB HEMATOLOGY METHOD 03/17/2025 6:48 PM EDT [facility] Platelet Count 179 155 - 369 10*3/uL LAB HEMATOLOGY METHOD 03/17/2025 6:48 PM EDT [facility] MCV 89 79 - 98 fL LAB HEMATOLOGY METHOD 03/17/2025 6:48 PM EDT [facility] MCH 30.1 26.0 - 32.0 pg LAB HEMATOLOGY METHOD 03/17/2025 6:48 PM EDT [facility] MCHC 33.8 30.7 - 35.5 g/dL LAB HEMATOLOGY METHOD 03/17/2025 6:48 PM EDT [facility] RDW 13.2 11.5 - 14.5 % LAB HEMATOLOGY METHOD 03/17/2025 6:48 PM EDT [facility] MPV 11.1 8.8 - 12.5 fL LAB HEMATOLOGY METHOD 03/17/2025 6:48 PM EDT [facility] nRBC 0.0 <=0.0 per 100 WBCs LAB HEMATOLOGY METHOD 03/17/2025 6:48 PM EDT [facility] Differential Type Automated LAB HEMATOLOGY METHOD 03/17/2025 6:48 PM EDT [facility] Neutrophils % 77 % LAB HEMATOLOGY METHOD 03/17/2025 6:48 PM EDT [facility] Lymphocytes % 11 % LAB HEMATOLOGY METHOD 03/17/2025 6:48 PM EDT [facility] Monocytes % 10 % LAB HEMATOLOGY METHOD 03/17/2025 6:48 PM EDT [facility] Eosinophils % 1 % LAB HEMATOLOGY METHOD 03/17/2025 6:48 PM EDT [facility] Basophils % 0 % LAB HEMATOLOGY METHOD 03/17/2025 6:48 PM EDT [facility] Immature Granulocytes % 1 % LAB HEMATOLOGY METHOD 03/17/2025 6:48 PM EDT [facility] Neutrophils Absolute 11.98(H) 1.60 - 6.10 10*3/uL LAB HEMATOLOGY METHOD 03/17/2025 6:48 PM EDT [facility] Lymphocytes Absolute 1.64 1.20 - 3.90 10*3/uL LAB HEMATOLOGY METHOD 03/17/2025 6:48 PM EDT [facility] Monocytes Absolute 1.57(H) 0.30 - 0.90 10*3/uL LAB HEMATOLOGY METHOD 03/17/2025 6:48 PM EDT [facility] Eosinophils Absolute 0.15 0.00 - 0.50 10*3/uL LAB HEMATOLOGY METHOD 03/17/2025 6:48 PM EDT [facility] Basophils Absolute 0.03 0.00 - 0.10 10*3/uL LAB HEMATOLOGY METHOD 03/17/2025 6:48 PM EDT [facility] Immature Granulocytes Absolute 0.08(H) 0.00 - 0.06 10*3/uL LAB HEMATOLOGY METHOD 03/17/2025 6:48 PM EDT [facility] Blood Venous blood specimen / Unknown Venipuncture / Unknown 03/17/2025 6:28 PM EDT 03/17/2025 6:43 PM EDT Narrative [facility] - 03/17/2025 6:48 PM EDT Therapeutic decision making should be based on absolute values, rather than percentages. us Michelle Craig MD LAB BLOOD ORDERABLES Final Re sult [facility] [address] [place] [address] documented in this encounter Visit Diagnoses Diagnosis Ureteropelvic junction (UPJ) obstruction, right- Primary Ureteropelvic junction (UPJ) obstruction, right Right flank pain Abdominal pain, unspecified site Postoperative surgical complication involving genitourinary system associated with genitourinary procedure, unspecified complication Ureteropelvic junction (UPJ) obstruction, right documented in this encounter Admitting Diagnoses Diagnosis Ureteropelvic junction (UPJ) obstruction, right documented in this encounter Administered Medications Inactive Administered Medications - up to 3 most recent administrations Medication Order MAR Action Action Date Dose Rate Site acetaminophen (Tylenol) tablet 1,000 mg 1,000 mg, Oral, Every 6 hours scheduled, First dose on Sat03/17/25 at 1830, Until Discontinued, Routine Given 03/19/2025 6:29 AM EDT 1,000 mg Given 03/18/2025 11:46 PM EDT 1,000 mg Given 03/18/2025 6:11 PM EDT 1,000 mg cefTRIAXone (Rocephin) 1 g in sodium chloride 0.9% 100 mL IVPB (vial adapter required) 1 g, Intravenous, Every 24 hours, First dose on Sat03/17/25 at 1840, Until Discontinued, Routine New Bag 03/17/2025 7:20 PM EDT 1 g 220 mL/hr enoxaparin (Lovenox) syringe 40 mg 40 mg, Subcutaneous, Every 24 hours scheduled, First dose on Sat03/17/25 at 1830, Until Discontinued, RoutineIndications:Prophylax is of Venous Thromboembolism Given 03/19/2025 8:22 AM EDT 40 mg Left Upper Arm (Back) Given 03/18/2025 8:27 AM EDT 40 mg Le ft Lower Abdomen Given 03/17/2025 7:19 PM EDT 40 mg Le ft Lower Abdomen fluconazole in NS (Diflucan) IVPB 400 mg 400 mg, Intravenous, Every 24 hours, 1 dose, First dose on Sat03/19/25 at 1045, Routine New Bag 03/19/2025 11:15 AM EDT 400 mg 100 m L/hr HYDROmorphone (Dilaudid) injection 0.5 mg 0.5 mg, Intravenous, Every 4 hours PRN, Starting on Sat03/17/25 at 1835, Until Sat03/19/25 at 1733, Routine, severe pain lactated Ringer's infusion 84 mL/hr, Intravenous, Continuous, Starting on Sat03/17/25 at 1830, Until Brittney 03/18/25 at 0912, Routine New Bag 03/17/2025 11:35 PM EDT 84 mL/hr 84 mL /hr New Bag 03/17/2025 9:39 PM EDT New Bag 03/17/2025 6:47 PM EDT 84 mL/hr 84 mL/hr morphine PF 2 mg 2 mg, Intravenous, As needed, Starting on Sat03/17/25 at 1800, Until Sat03/19/25 at 1733, STAT, severe pain Given 03/17/2025 6:46 PM EDT 2 mg mupirocin (Bactroban) 2 % ointment 1 Application Each Nostril, 2 times daily, 10 doses, First dose on Sat03/19/25 at 0230, Last dose on Sat03/23/25 at 0900, Routine Given 03/19/2025 2:33 AM EDT 1 Application ondansetron (Zofran) injection 4 mg 4 mg, Intravenous, Once, 1 dose, On Sat03/17/25 at 1805, STAT Given 03/17/2025 6:47 PM EDT 4 mg ondansetron (Zofran) injection 4 mg 4 mg, Intravenous, Every 6 hours PRN, Starting on Sat03/17/25 at 1826, Until Sat03/19/25 at 1733, Routine, nausea, vomiting oxyCODONE (Roxicodone) immediate release tablet 5 mg 5 mg, Oral, Every 4 hours PRN, Starting on Sat03/17/25 at 1826, Until Sat03/19/25 at 1733, Routine, severe pain sodium chloride 0.9 % flush 10 mL 10 mL, Intravenous, Every 12 hours, First dose on Sat03/17/25 at 1830, Until Discontinued, Routine Given 03/19/2025 7:07 AM EDT 10 mL Left Antecubital Given 03/18/2025 6:13 PM EDT 10 mL Given 03/18/2025 5:56 AM EDT 10 mL sodium chloride 0.9 % flush 10 mL 10 mL, Intravenous, As needed, Starting on Sat03/17/25 at 1825, Until Sat03/19/25 at 1733, Routine, line care sulfamethoxazole-trimethoprim (Bactrim DS) 800-160 MG per tablet 2 tablet 2 tablet, Oral, 2 times daily, 14 doses, First dose on Sat03/18/25 at 0900, Last dose on Sat03/24/25 at 2100, Routine Given 03/19/2025 8:22 AM EDT 2 table ts Given 03/18/2025 9:44 PM EDT 2 tablets Given 03/18/2025 8:27 AM EDT 2 tablets documented in this encounter Active and Recently Administered Medications Times are shown in EDT. Scheduled Medication Order 03/17/2025 03/18/2025 03/19/2025 acetaminophen (Tylenol) tablet 1,000 mg 1,000 mg, Oral, Every 6 hours scheduled, First dose on Sat03/17/25 at 1830, Until Discontinued, Routine 2103 (Given - Provider: Urszula Sawyer RN - Comment: Jorge baumann to give tylenol)2121 (NOV Hold - Provider: Automatic Transfer Provider - Reason: Patient in procedure)234 (NOV Unhold - Provider: Automatic Transfer Provider) 0020 (Not Given - Provider: Khushi Manzano RN - Reason: Patient/family refused)0555 (Not Given - Provider: Khushi Manzano RN - Reason: Patient/family refused)1228 (Not Given - Provider: Julieth Pablo RN - Reason: Patient/family refused)1811 (Given - Provider: Julieth Pablo, RN)2346 (Given - Provider: Nenita Spears, RN) 0629 (Given - Provider: Nenita Spears, RN)1258 (Not Given - Provider: Tami Ramírez RN - Reason: Patient/family refused) cefTRIAXone (Rocephin) 1 g in sodium chloride 0.9% 100 mL IVPB (vial adapter required) (CANCELED) 1 g, Intravenous, Every 24 hours, First dose on Sat03/17/25 at 1840, Until Discontinued, Routine 192 (New Bag - Provider: Urszula Sawyer RN)2039 (Stopped - Provider: Urszula Sawyer RN) enoxaparin (Lovenox) syringe 40 mg 40 mg, Subcutaneous, Every 24 hours scheduled, First dose on Sat03/17/25 at 1830, Until Discontinued, Routine 191 (Given - Provider: Urszula Sawyer RN)212 (NOV Hold - Provider: Automatic Transfer Provider - Reason: Patient in procedure)234 (NOV Unhold - Provider: Automatic Transfer Provider) 0827 (Given - Provider: Julieth Pablo, FARTUN) 0822 (Given - Provider: Tami Ramírez, FARTUN) fluconazole in NS (Diflucan) IVPB 400 mg (COMPLETED) 400 mg, Intravenous, Every 24 hours, 1 dose, First dose on Sat03/19/25 at 1045, Routine 1115 (New Bag - Provider: Tami Ramírez RN) gentamicin (Garamycin) 340 mg in sodium chloride 0.9 % 100 mL IVPB (COMPLETED) 340 mg (5 mg/kg 68 kg), Intravenous, Once, 1 dose, On Sat03/17/25 at 2145, Routine 2142 (New Bag - Provider: Rick Ashley MD) mupirocin (Bactroban) 2 % ointment 1 Application (CANCELED) Each Nostril, 2 times daily, 10 doses, First dose on Sat03/19/25 at 0230, Last dose on Sat03/23/25 at 0900, Routine 0233 (Given - Provider: Nenita Spears, RN) ondansetron (Zofran) injection 4 mg (COMPLETED) 4 mg, Intravenous, Once, 1 dose, On Sat03/17/25 at 1805, STAT 1847 (Given - Provider: Krystal Rabago, FATRUN) sodium chloride 0.9 % flush 10 mL(Linked Group 1) 10 mL, Intravenous, Every 12 hours, First dose on Sat03/17/25 at 1830, Until Discontinued, Routine 1855 (Given - Provider: Krystal Rabago, FARTUN)212 (NOV Hold - Provider: Automatic Transfer Provider - Reason: Patient in procedure)2341 (NOV Unhold - Provider: Automatic Transfer Provider) 0556 (Given - Provider: Khushi Manzano, FARTUN)1813 (Given - Provider: Julieth Pablo, FARTUN) 0707 (Given - Provider: Nenita Spears, RN) sulfamethoxazole-trime thoprim (Bactrim DS) 800-160 MG per tablet 2 tablet 2 tablet, Oral, 2 times daily, 14 doses, First dose on Sat03/18/25 at 0900, Last dose on Sat03/24/25 at 2100, Routine 0827 (Given - Provider: Julieth Pablo, FARTUN)2144 (Given - Provider: Nenita Spears, RN) 0822 (Given - Provider: Tami Ramírez RN) Continuous Medication Order 03/17/2025 03/18/2025 03/19/2025 lactated Ringer's infusion (CANCELED) 84 mL/hr, Intravenous, Continuous, Starting on Sat03/17/25 at 1830, Until Brittney 03/18/25 at 0912, Routine 184 (New Bag - Provider: Krystal Rabago, FARTUN)2136 (Stopped - Provider: Rick Ashley MD)2136 (Canceled Entry - Provider: Rick Ashley MD - Comment: Switch to gravity)2137 (Canceled Entry - Provider: Rick Ashley MD)2138 (New Bag - Provider: Rick Ashley MD)2335 (New Bag - Provider: Ann Singleton, FARTUN) PRN Medication Order 03/17/2025 03/18/2025 03/19/2025 HYDROmorphone (Dilaudid) injection 0.5 mg 0.5 mg, Intravenous, Every 4 hours PRN, Starting on Sat03/17/25 at 1835, Until Sat03/19/25 at 1733, Routine, severe pain 2121 ([facility] Hold - Provider: Automatic Transfer Provider - Reason: Patient in procedure)2340 ([facility] Unhold - Provider: Automatic Transfer Provider) iohexol (OMNIPaque) 300 MG/ML injection (CANCELED) As needed, Starting on Sat03/17/25 at 2204, Until Sat03/17/25 at 2235, Routine, Intraprocedure 2203 (Given - Provider: Allan Daley MD - Comment: RIGHT RGP) morphine PF 2 mg 2 mg, Intravenous, As needed, Starting on Sat03/17/25 at 1800, Until Sat03/19/25 at 1733, STAT, severe pain 184 (Given - Provider: Krystal Rabago RN)2121 ([facility] Hold - Provider: Automatic Transfer Provider - Reason: Patient in procedure)2340 ([facility] Unhold - Provider: Automatic Transfer Provider) ondansetron (Zofran) injection 4 mg 4 mg, Intravenous, Every 6 hours PRN, Starting on Sat03/17/25 at 1826, Until Sat03/19/25 at 1733, Routine, nausea, vomiting 2121 ([facility] Hold - Provider: Automatic Transfer Provider - Reason: Patient in procedure)2340 ([facility] Unhold - Provider: Automatic Transfer Provider) oxyCODONE (Roxicodone) immediate release tablet 5 mg 5 mg, Oral, Every 4 hours PRN, Starting on Sat03/17/25 at 1826, Until Sat03/19/25 at 1733, Routine, severe pain 2121 ([facility] Hold - Provider: Automatic Transfer Provider - Reason: Patient in procedure)2340 ([facility] Unhold - Provider: Automatic Transfer Provider) sodium chloride 0.9 % flush 10 mL(Linked Group 1) 10 mL, Intravenous, As needed, Starting on Sat03/17/25 at 1825, Until Sat03/19/25 at 1733, Routine, line care 2121 ([facility] Hold - Provider: Automatic Transfer Provider - Reason: Patient in procedure)2340 ([facility] Unhold - Provider: Automatic Transfer Provider) Linked Groups Order Group 1: Insert peripheral IV (COMPLETED) Once, On Sat03/17/25 at 1826, For 1 occurrence And Saline lock IV (COMPLETED) Once, On Sat03/17/25 at 1826, For 1 occurrence And sodium chloride 0.9 % flush 10 mLJump to med 10 mL, Intravenous, Every 12 hours, First dose on Sat03/17/25 at 1830, Until Discontinued, Routine And sodium chloride 0.9 % flush 10 mLJump to med 10 mL, Intravenous, As needed, Starting on Sat03/17/25 at 1825, Until Sat03/19/25 at 1733, Routine, line care documented in this encounter Additional Health Concerns Assessment Noted Time A fall risk assessment has been complete d for the patient 03/16/2025 9:45 AM EDT A Body Mass Index follow-up plan has been documented for the patient 03/19/2025 1:33 PM EDT documented as of this encounter Care Teams Glass Cut Off Supervisor Relationship Specialty Start Date End Date Thiago Gregory APRN [address] [place] [address] PCP - General 03/20/24 Doug Bill, RN ```````````````````````[facility] - PACU - MAJOR, PAV A Registered Nurse 12/23/24 documented as of this encounter
--- OUTSIDE RECORDS SUMMARY | 2025-03-17 21:37 | XMS_ITS | Encounter Summary ---
Author Organization Healthcare Address [address] [id number] Care Team Providers Care Medical Assisting Instructor Name Role Phone Thiago Gregory APRN Primary Care Provider [phone] Doug Bill RN Unavailable Unavailable Reason for Visit * Auth/Cert (Routine) Specialty Diagnoses / Procedures Referred By Contac t Referred To Contact Diagnoses Ureteropelvic junction (UPJ) obstruction, right removal of stent, pain when urinating Talib Serna MD [address] [facility] [address] [place] [address] Phone: tel: fax: P[facility] H Inpatient [address] [place] [address] Phone: tel: Referral ID Status Reason Start Date Expiration Date Visits Re quested Visits Authorized [id number] 1 1 Encounter Details Date Type Department Care Team (Late st Contact Info) Description 03/17/2025 9:37 PM EDT Anesthesia Event [facility] OPERATING ROOM [address] [place] [address] Benito Rosenbaum DO [address] [place] [address] Rick Ashley MD [address] [id number] Anesthesia Record Procedure Summary Procedure Name Responsible [...] in the past 12 m [facility], were you homeless or living in a custodial (including now)? No 12/07/2024 AUDIT-C Answer Date [...] drink first t nigel in the morning (EYE-ELECTRICAL TESTER BATTERY) to steady your nerves or to get [...] Risk Indicated 03/18/2025 12:00 AM EDT Khushi Jane RN * Question Answer Date of Assessment [...] room, the pt was signed out to CIRCULATION DIRECTOR. The pt'sname, pertinent allergies, and medical history was dicussed with the CIRCULATION DIRECTOR. The intraoperative course, narcotics/pain adjuncts, paralytics/reversal, anti-emetics and IV access were discussed. Additional pain medications and anti-emetics are ordered as needed for pain/nausea. At this time, the pt's vitals signs are stable and responsive to conversation. No other questions or concerns were noted by the CIRCULATION DIRECTOR at the time of handoff. No notable [...] portions of the procedure(s) and immediately available [facility] services the entire duration. See [...] Plan ASA 3 Plan was reviewed with: VAT HOUSE LABORER Anesthesia technique(s) discussed with the patient/family: general [...] Visit Medical Office Building Urology [address] [facility], [address] [place] [address] Talib Serna MD [address] [facility] [address] [place] [address] 05/17/2025 10:35 AM EDT Hospital Encounter [facility]ATING ROOM [address] [place] [address] Talib Serna MD [id number] [place] [address] 05/17/2025 10:35 AM EDT - 05/17/2025 12:05 PM EDT Surgery [facility]ATING ROOM [address] [place] [address] Talib Serna MD [address] [address] URETEROSCOPY, WITH BIOPSY WITH POSSIBLE R URETERAL STENT EXCHANGE [24442 (CPT )] 06/17/2025 12:00 PM EDT Appointment [facility] [address] [place] [address] 06/17/2025 1:30 PM EDT Office Visit Medical Office Building Urology [address] [facility], [address] [place] [address] Talib Serna MD [address] [address] 10/21/2025 11:00 AM EST Office Visit [facility] [address] [place] [address] Mayi Ballard MD [address] [facility] [address] [place] [address] Scheduled Procedures Name Priority Associated Diagnoses Date/Ti me URETEROSCOPY, WITH BIOPSY Ureteropelvic junction (UPJ) obstruction, right 05/17/2025 10:35 AM EDT documented as of this encounter Procedures Procedure Name Priority Date/Time Associated Diagnosis Comments PB ANESTHESIA PLACEHOLDER Routine 03/17/2025 9:42 PM EDT [place] AN ELECTIVE ENDOTRACHEAL AIRWAY Routine 03/17/2025 9:42 PM EDT documented in this encounter Results * [place] AN ELECTIVE ENDOTRACHEAL AIRWAY, PB ANESTHESIA PLACEHOLDER [...] documented as of this encounter Care Teams Medical Assisting Instructor Relationship Specialty Start Date End Date Thiago Gregory APRN [address] [place] [address] PCP - General 03/20/24 Doug Bill RN ```````````````````````CH - PACU - MAJOR, PAV A Registered Nurse 12/23/24 documented as of this encounter
--- OUTSIDE RECORDS SUMMARY | 2025-03-17 22:00 | XMS_ITS | Encounter Summary ---
Author Organization Healthcare Address [address] [id number] Care Team Providers Care Certified Alcohol Counselor Name Role Phone Thiago Gregory APRN Primary Care Provider [phone] Doug Bill RN Unavailable Unavailable Reason for Visit * Reason Comments Flank Pain * Auth/Cert (Routine) Specialty Diagnoses / Procedures Referred By Contac t Referred To Contact Diagnoses Ureteropelvic junction (UPJ) obstruction, right removal of stent, pain when urinating Talib Serna MD [address] [address] Phone: tel: fax: PAV H Inpatient [address] [place] [address] Phone: tel: Referral ID Status Reason Start Date Expiration Date Visits Re quested Visits Authorized [id number] 1 1 Encounter Details Date Type Department Care Team (Late st Contact Info) Description 03/17/2025 10:00 PM EDT - 03/18/2025 12:30 AM EDT Surgery PAV A OPERATING ROOM [address] [place] [address] Talib Serna MD [address] [address] URETEROSCOPY, COMPLEX [04095 (CPT )] Surgery Details Date/Time Status Location OR Service Patient Class Case Class Case Type Trauma Case? 03/17/2025 10:00 PM Posted [facility] OR [facility] OR 15 Urology Emergency B-Urgent: to be done within 4 hours Panel 1 Procedure LRB Anes Op Region Wound Class Comments URETEROSCOPY, COMPLEX Right Choice Ureter Class II/ Clean Contaminated Retrograde pyelogram, possible ureteral stent, possible nephrostomy tube placement Surgeon Surgeon Role Service Panel Talib Serna MD Primary Urology 1 Allan Daley MD Resident - Assisting 1 documented in this encounter Social History [...] time in the past 12 m [facility], were you homeless or living [...] first t nigel in the morning (EYE-MANAGER DEVELOPMENTAL) to steady your nerves or to get rid of a hangover? 0 03/17/2025 CAGE Questionnaire Score 0 025 Utilities Answer Date Recorded In the past 12 months has e electric, gas, oil, or water company [...] Sign Reading Time Taken Comments Blood Pressure 131/75 03/17/2025 11:45 PM EDT Pulse 79 03/17/2025 11:45 PM EDT Temperature 36.8 C (98.2 F) 03/17/2025 11:45 PM EDT Respiratory Rate 20 03/17/2025 11:45 PM EDT Oxygen Saturation 94% 03/17/2025 11:45 PM EDT Inhaled Oxygen Concentration - - [...] Manzano RN documented as of this encounter Discharge [...] confirm your location ahead of your appointment) [facility] Urology Department Clinic at [place] [address] [address], [facility], [address] [place] [address] Clinic After Hours [facility] Office Building Urology Clinic [address] [facility] [place] [address] Clinic After Hours documented in this encounter [...] Note Parth Pratt 70 y.o. male CSN: [id number] Admission: 03/17/2025 5:05 PM Primary Problem: Ureteropelvic junction (UPJ) obstruction, right Primary Companion: Assistance Available at Discharge: Family/Companion(s) Willingness Assessed to care for patient at home: Yes Family/Companion(s) Readiness Assessed to care for patient at [...] first notice.) Follow-up: Costa Sands MD [address] [facility] [address] Discharge Transportation: Transportation Anticipated: family or friend [...] and agrees with above DC plan. In??s Estefanía. APRIL Alvarado, materials planning manager * Consults - Bisi Chavez RD [...] PCP name and Address: Thiago Gregory APRN [address] [facility] [place] [address] Referring provider name and address: Costa Sands MD [address] [place] [id number] Chief Concern, Brief History of Present Illness, [...] Your Medications These medications were sent to [facility] - [place], [place] - [id number] [place] [address] sulfamethoxazole-trimethoprim 800-160 MG tablet Discharge Diagnosis Medical [...] confirm your location ahead of your appointment) [facility] Urology Department Clinic at [facility] [address], 2nd Floor, [address], [address] [place] [address] Clinic After Hours [facility] Office Building Urology Clinic [address] [facility] [address] [place] [address] Clinic After Hours Outpatient Follow-Up Future Appointments Date Time Provider Department Center 04/08/2025 9:10 AM Mayi Ballard MBBS [facility] 06/17/2025 12:[address] 1 CTGSH [...] Jesus MD - 03/18/2025 11:32 AM EDT [facility] Urology Inpatient Progress Note Primary Attending: [...] ppx, Lovenox - continue nash fr maximal drianage Lj De Jesus MD Urology PGY-1 Cosigned by [...] PM EDT Operative Note Date: 03/17/25 Location: [place] OR Name: Parth Pratt, : 1955, Diagnoses: Pre-op Diagnosis Ureteropelvic junction (UPJ) obstruction, right Post-op Diagnosis Ureteropelvic junction (UPJ) obstruction, right Procedure(s): Cystoscopy with retrograde pyelogram Right diagnostic ureteroscopy Right ureteral stent placement Attending Surgeon(s): * Talib Serna - Primary Tank Calibrator(s): * Allan Daley MD - Resident - [...] Necessity Reasons Recent surgery contiguous with urinary tract/CARTRIDGE FILLER/colorectal 03/17/252234 Ureteral Drain/Stent Right ureter 7 Fr. (Active) Implants Type Name Action Serial No. Stent STENT URETERAL TRIA FIRM MONOFILAMENT [id number]/[id number] - [id number] Implanted Specimen: Specimens ID Source Frozen? A [...] MD Consult ordered by: Michelle Craig MD [facility] Urology Consult Note 03/17/25 Service Requesting [...] to persistent pain prompting him to visit [facility] ED. At [facility] ED, labs notable for [...] AOx3 PSYCH: Appropriate mood and affect LABS: [facility] labs pending. [facility] labs: WBC 15.1 Cr [...] for diagnostic ureteroscopy, possible stent versus [facility] patient is agreeable. Does not wish to pursue nephrectomy at this immediate time. He is NPO. Plan: - to OR for right diagnostic ureteroscopy, retrograde pyelogram, possible stent placement, possiblenephrostomy tube placement - NPO - Admit to urology - [facility] - Trend labs Allan Daley MD PGY-2 [...] History: Procedure Laterality Date COLONOSCOPY CYSTOSCOPY 12/15/2024 ([facility]) cystosopy, ANTEGRADE URETEROSCOPY, right nephrostomy tube exchange (Ureter) URETEROSCOPY (Right) INSERTION OR REPLACEMENT, NEPHROSTOMY TUBE (Right) HIP ARTHROPLASTY Bilateral HIP SURGERY Right to replace recalled loli device KIDNEY STONE SURGERY LIVER BIOPSY NEPHROSTOMY 12/04/2024 ([facility]) INSERTION OR REPLACEMENT, NEPHROSTOMY TUBE (Right) PROSTATE BIOPSY SHOULDER SURGERY Left cadaver tendon placed in shoulder TONSILLECTOMY UPPER GASTROINTESTINAL ENDOSCOPY URETEROSCOPY 11/30/2024 ([facility]) URETEROSCOPY, RIGHT RETROGRADE (Right) CYSTOSCOPY (Bladder) [3] Family History Problem Relation Name Age of Onset Hyperthyroidism Sister Damaso Hyperthermia Neg Hx [4] Social History Tobacco [...] Mood normal. EASI ?? Total Score: 0 Haiku Coma Scale Score: 15 Mini Nutritional Screening [...] patient 4 times daily Acknowledged ALLAN DALEY 03/17/25 182 Vital Signs (Every 4 hours) Every 4 [...] in And Linked Group Acknowledged ALLAN DALEY 03/17/25 182 Saline lock IV Once Placed in And Linked Group Acknowledged ALLAN DALEY 03/17/25 182 Do NOT transfer patient to [facility] without chief resident or attending apporval Until discontinued Acknowledged ALLAN DALEY 03/17/25 182 Admit to inpatient Once Acknowledged ALLAN DALEY 03/17/25 182 Full code Continuous Acknowledged ALLAN DALEY 03/17/25 182 Skin prep Once Acknowledged ALLAN DALEY 03/17/25 1820 Hibiclens Scrub Until discontinued Comments: Shower/scrub evening before and morning of procedure; include 5 minutes scrub each time to operative site with chlorhexidine gluconate 4% (Hibiclens). Acknowledged ALLAN DALEY 03/17/25 182 Void river expedition guide to OR Once Acknowledged ALLAN DALEY 03/17/25 182 Case Request Operating Room: URETEROSCOPY, COMPLEX Once Completed ALLAN DALEY 03/17/25 1732 CBC w/diff STAT Final result KEYNA OMALLEY 03/17/25 1732 CMP STAT Final result [...] History: Procedure Laterality Date COLONOSCOPY CYSTOSCOPY 12/15/2024 ([facility]) cystosopy, ANTEGRADE URETEROSCOPY, right nephrostomy tube exchange (Ureter) URETEROSCOPY (Right) INSERTION OR REPLACEMENT, NEPHROSTOMY TUBE (Right) HIP ARTHROPLASTY Bilateral HIP SURGERY Right to replace recalled loli device KIDNEY STONE SURGERY LIVER BIOPSY NEPHROSTOMY 12/04/2024 ([facility]) INSERTION OR REPLACEMENT, NEPHROSTOMY TUBE (Right) PROSTATE BIOPSY SHOULDER SURGERY Left cadaver tendon placed in shoulder TONSILLECTOMY UPPER GASTROINTESTINAL ENDOSCOPY URETEROSCOPY 11/30/2024 ([facility]) URETEROSCOPY, RIGHT RETROGRADE (Right) CYSTOSCOPY [...] Muscle tightness (neck) Kenya Omalley DO Resident 03/17/25 2211 Cosigned by Michelle Craig MD at 03/17/2025 10:31 PM EDT Associated attestation - Michelle Craig MD - 03/17/2025 10:31 PM EDT I saw and evaluated the patient with the resident/fellow. I discussed the case with the resident/fellow and agree with the findings and plan as documented. * ED Triage Notes - Krystal Rabago RN - 03/17/2025 5:05 PM EDT Per [...] Urology [facility] [address] [facility], [address] [place] [address] Talib Serna MD [address] [address] 05/17/2025 10:35 AM EDT Hospital Encounter PAV A OPERATING ROOM [address] [place] [address] Talib Serna MD [address] [address] 05/17/2025 10:35 AM EDT - 05/17/2025 12:05 PM EDT Surgery PAV A OPERATING ROOM [address] [place] [address] Talib Serna MD [address] [address] URETEROSCOPY, WITH BIOPSY WITH POSSIBLE R URETERAL STENT EXCHANGE [24098 (CPT )] 06/17/2025 12:00 PM EDT Appointment [facility] [address] 2nd [place] [address] 06/17/2025 1:30 PM EDT Office Visit Medical Office Building Urology [address] [facility], [address] [place] [address] Talib Serna MD [address] [address] 10/21/2025 11:00 AM EST Office Visit [place] [facility] [address], [address] [place] [address] Mayi Ballard MD [address] [facility] [address] [place] [address] Scheduled Procedures Name Priority Associated [...] PM EDT Ureteropelvic junction (UPJ) obstruction, right [place] CYSTO/URETERO/PYELOSCO PY, DX 03/17/2025 9:21 PM EDT [...] - 99 mg/dL 03/18/2025 4:56 AM EDT [facility] BUN, Plasma 9 8 - 23 mg/dL 03/18/2025 4:56 AM EDT [facility] Creatinine, Plasma 0.68(L) 0.70 - 1.20 mg/dL 03/18/2025 4:56 AM EDT [facility] BUN/Creatinine Ratio 13 03/18/2025 4:56 AM EDT [facility] Sodium, Plasma 138 136 - 145 mmol/L 03/18/2025 4:56 AM EDT [facility] Potassium, Plasma 4.6 3.6 - 4.9 mmol/L 03/18/2025 4:56 AM EDT [facility] Chloride, Plasma 104 97 - 107 mmol/L 03/18/2025 4:56 AM EDT [facility] CO2, Plasma 24 22 - 29 mmol/L 03/18/2025 4:56 AM EDT [facility] Anion Gap 10 6 - 16 mmol/L 03/18/2025 4:56 AM EDT [facility] Total Calcium, Plasma 9.4 8.9 - 10.2 mg/dL 03/18/2025 4:56 AM EDT [facility] eGFRcr 99.4 mL/min/1.7 3m*2 03/18/2025 4:56 AM EDT [facility] Comment:Reported eGFRcr in m L/min/1.73m2 is based the CKD-EPI 2020 equation that does not use a race coefficient. Blood Venous blood specimen / Unknown Venipuncture / Unknown 03/18/2025 4:09 AM EDT 03/18/2025 4:27 AM EDT us Talib Serna MD LAB BLOOD ORDERABLES Final Res ult [facility] [address] [place] [address] * (ABNORMAL) Hemogram (CBC) (03/18/2025 4:09 AM EDT) WBC Count 17.56(H) 3.70 - 10.30 10*3/uL LAB HEMATOLOGY METHOD 03/18/2025 4:38 AM EDT [facility] RBC Count 4.47(L) 4.60 - 6.10 10*6/uL LAB HEMATOLOGY METHOD 03/18/2025 4:38 AM EDT [facility] HGB 13.4(L) 13.7 - 17.5 g/dL LAB HEMATOLOGY METHOD 03/18/2025 4:38 AM EDT [facility] HCT 40.3 40.0 - 51.0 % LAB HEMATOLOGY METHOD 03/18/2025 4:38 AM EDT [facility] Platelet Count 201 155 - 369 10*3/uL LAB HEMATOLOGY METHOD 03/18/2025 4:38 AM EDT [facility] MCV 90 79 - 98 fL LAB HEMATOLOGY METHOD 03/18/2025 4:38 AM EDT [facility] MCH 30.0 26.0 - 32.0 pg LAB HEMATOLOGY METHOD 03/18/2025 4:38 AM EDT [facility] MCHC 33.3 30.7 - 35.5 g/dL LAB HEMATOLOGY METHOD 03/18/2025 4:38 AM EDT [facility] RDW 13.2 11.5 - 14.5 % LAB HEMATOLOGY METHOD 03/18/2025 4:38 AM EDT [facility] MPV 10.8 8.8 - 12.5 fL LAB HEMATOLOGY METHOD 03/18/2025 4:38 AM EDT [facility] nRBC 0.0 <=0.0 per 100 WBCs LAB HEMATOLOGY METHOD 03/18/2025 4:38 AM EDT [facility] Blood Venous blood specimen / Unknown Venipuncture / Unknown 03/18/2025 4:09 AM EDT 03/18/2025 4:27 AM EDT us Talib Serna MD LAB BLOOD ORDERABLES Final Res ult [facility] [address] [place] [address] * [place] Less than 1 Hour Intraoperative (03/17/2025 10:40 PM EDT) Narrative IMAGING - 03/17/2025 10:40 PM EDT Images were obtained for surgical purposes. See Talib Serna's surgical note in the patient's chart for the findings. Talib Serna MD IMG FLUOROSCOPY PROCEDURES Fin al Result Performing Organization Address City/[facility] Co de Phone Number IMAGING * (ABNORMAL) Urine Culture (03/17/2025 10:09 PM EDT) Culture 1,000 - 10,000 CFU/mL Lucie albicans(A) 03/20/2025 7:41 AM EDT [facility] Comment: This isolate has been identified using the FDA Approved MALDI Curiosidyyper CA System Edited result: Previously reported as Yeast on 03/18/2025 at 2123 EDT. Urine Right kidney structure / Unknown 03/17/2025 10:09 PM EDT 03/17/2025 11:55 PM EDT Comment:Pre-op diagnosis: Ureteropelvic junction (UPJ) obstruction, right [N13.5] Talib Serna MD LAB MICROBIOLOGY - GENERAL ORD ERABLES Final Result Performing Organization Address City/[facility] Co de Phone Number [facility] [address] [place] [address] * SEND OMA MESSAGE (03/17/2025 6:28 PM EDT) Urine Urine specimen obtained by clean catch procedure / Unknown Non-blood Collection / Unknown 03/17/2025 6:28 PM EDT 03/17/2025 7:12 PM EDT Michelle Craig MD LAB URINE ORDERABLES Final Re sult Performing Organization Address City/[facility] Co de Phone Number [facility] [address] [place] [address] * (ABNORMAL) Urine Culture (03/17/2025 6:28 PM EDT) Culture 10,000 - 100,000 CFU/mL Lucie albicans(A) 03/20/2025 7:40 AM EDT [facility] Comment: This isolate has been identified using the FDA Approved MALDI Curiosidyyper CA System Edited result: Previously reported as Yeast on 03/18/2025 at 1726 EDT. Urine Urine specimen obtained by clean catch procedure / Unknown Non-blood Collection / Unknown 03/17/2025 6:28 PM EDT 03/17/2025 7:12 PM EDT us Michelle Craig MD LAB MICROBIOLOGY - GENERAL OR DERABLES Final Result Performing Organization Address [facility] Co de Phone Number [facility] [address] [place] [address] * Urinalysis Microscopic Examination (03/17/2025 6:28 PM EDT) Urine Urine specimen obtained by clean catch procedure / Unknown Non-blood Collection / Unknown 03/17/2025 6:28 PM EDT 03/17/2025 6:43 PM EDT us Michelle Craig MD LAB URINE ORDERABLES Final Re sult Performing Organization Address [facility] de Phone Number [facility] [address] [place] [address] * Urine Barlow Panel (03/17/2025 6:28 PM EDT) Extra Sent for Culture 03/17/2025 9:02 PM EDT [facility] Urine Urine specimen obtained by clean catch procedure / Unknown Non-blood Collection / Unknown 03/17/2025 6:28 PM EDT 03/17/2025 7:12 PM EDT us Michelle Craig MD LAB URINE ORDERABLES Final Re sult Performing Organization Address [facility] de Phone Number [facility] [address] [place] [address] * (ABNORMAL) Urinalysis with reflex microscopic (Culture NOT Included) (03/17/2025 6:28 PM EDT) Color, Urine Yellow LAB URINALYSIS - AUTOMATED METHOD 03/17/2025 7:38 PM EDT [facility] Clarity, Urine Cloudy LAB URINALYSIS - AUTOMATED METHOD 03/17/2025 7:38 PM EDT [facility] Spec [place], Urine >1.030(H) 1.005 - 1.030 LAB URINALYSIS - AUTOMATED METHOD 03/17/2025 7:38 PM EDT [facility] pH, Urine 7.5 5.0 - 8.0 LAB URINALYSIS - AUTOMATED METHOD 03/17/2025 7:38 PM EDT [facility] Protein, Urine 30(A) Negative mg/dL LAB URINALYSIS - AUTOMATED METHOD 03/17/2025 7:38 PM EDT [facility] Glucose, Urine Negative Negative mg/dL LAB URINALYSIS - AUTOMATED METHOD 03/17/2025 7:38 PM EDT [facility] Ketones, Urine Trace(A) Negative mg/dL LAB URINALYSIS - AUTOMATED METHOD 03/17/2025 7:38 PM EDT [facility] Blood, Urine Moderate(A) Negative LAB URINALYSIS - AUTOMATED METHOD 03/17/2025 7:38 PM EDT [facility] Bilirubin, Urine Negative Negative LAB URINALYSIS - AUTOMATED METHOD 03/17/2025 7:38 PM EDT [facility] Urobilinogen, Urine 1.0 0.2 to 1.0 mg/dL LAB URINALYSIS - AUTOMATED METHOD 03/17/2025 7:38 PM EDT [facility] Leukocytes, Urine Large(A) Negative LAB URINALYSIS - AUTOMATED METHOD 03/17/2025 7:38 PM EDT [facility] Nitrite, Urine Negative Negative LAB URINALYSIS - AUTOMATED METHOD 03/17/2025 7:38 PM EDT [facility] RBC, Urine 11 - 15(A) 0 to 3 /HPF LAB URINALYSIS - AUTOMATED METHOD 03/17/2025 7:38 PM EDT [facility] Comment:This result was prev iously suppressed from the chart. WBC, Urine >50(A) 0 to 5 /HPF LAB URINALYSIS - AUTOMATED METHOD 03/17/2025 7:38 PM EDT [facility] Comment:This result was prev iously suppressed from the chart. Squamous Epithelial Cells 0 - 2 0 to 5 /HPF LAB URINALYSIS - AUTOMATED METHOD 03/17/2025 7:38 PM EDT [facility] Comment:This result was prev iously suppressed from the chart. Hyaline Casts 3 - 5 0 to 5 /LPF LAB URINALYSIS - AUTOMATED METHOD 03/17/2025 7:38 PM EDT [facility] Comment:This result was prev iously suppressed from the chart. Bacteria, Urine Present Negative LAB URINALYSIS - AUTOMATED METHOD 03/17/2025 7:38 PM EDT [facility] Comment:This result was prev iously suppressed from the chart. Urine Urine specimen obtained by clean catch procedure / Unknown Non-blood Collection / Unknown 03/17/2025 6:28 PM EDT 03/17/2025 6:43 PM EDT us Michelle Craig MD LAB URINE ORDERABLES Final Re sult [facility] [address] [place] [address] * (ABNORMAL) CMP (03/17/2025 6:28 PM EDT) Glucose, Plasma 107(H) 74 - 99 mg/dL 03/17/2025 7:07 PM EDT [facility] BUN, Plasma 11 8 - 23 mg/dL 03/17/2025 7:07 PM EDT [facility] Creatinine, Plasma 0.75 0.70 - 1.20 mg/dL 03/17/2025 7:07 PM EDT [facility] BUN/Creatinine Ratio 15 03/17/2025 7:07 PM EDT [facility] Sodium, Plasma 137 136 - 145 mmol/L 03/17/2025 7:07 PM EDT [facility] Potassium, Plasma 4.1 3.6 - 4.9 mmol/L 03/17/2025 7:07 PM EDT [facility] Chloride, Plasma 102 97 - 107 mmol/L 03/17/2025 7:07 PM EDT [facility] CO2, Plasma 23 22 - 29 mmol/L 03/17/2025 7:07 PM EDT [facility] Anion Gap 12 6 - 16 mmol/L 03/17/2025 7:07 PM EDT [facility] Total Calcium, Plasma 9.0 8.9 - 10.2 mg/dL 03/17/2025 7:07 PM EDT [facility] Total Protein 6.9 6.3 - 7.9 g/dL 03/17/2025 7:07 PM EDT [facility] Albumin, Plasma 3.8 3.5 - 5.2 g/dL 03/17/2025 7:07 PM EDT [facility] AST, Plasma 14 10 - 50 U/L 03/17/2025 7:07 PM EDT [facility] ALT, Plasma 13 10 - 50 U/L 03/17/2025 7:07 PM EDT [facility] Alkaline Phosphatase, Plasma 66 40 - 115 U/L 03/17/2025 7:07 PM EDT [facility] Total Bilirubin, Plasma 0.7 0.2 - 1.1 mg/dL 03/17/2025 7:07 PM EDT [facility] eGFRcr 96.5 mL/min/1.7 3m*2 03/17/2025 7:07 PM EDT [facility] Comment:Reported eGFRcr in m L/min/1.73m2 is based the CKD-EPI 2020 equation that does not use a race coefficient. Blood Venous blood specimen / Unknown Venipuncture / Unknown 03/17/2025 6:28 PM EDT 03/17/2025 6:43 PM EDT us Michlele Craig MD LAB BLOOD ORDERABLES Final Re sult [facility] [address] [place] [address] * (ABNORMAL) CBC w/diff (03/17/2025 6:28 PM EDT) WBC Count 15.45(H) 3.70 - 10.30 10*3/uL LAB HEMATOLOGY METHOD 03/17/2025 6:48 PM EDT [facility] RBC Count 4.48(L) 4.60 - 6.10 10*6/uL LAB HEMATOLOGY METHOD 03/17/2025 6:48 PM EDT [facility] HGB 13.5(L) 13.7 - 17.5 g/dL LAB HEMATOLOGY METHOD 03/17/2025 6:48 PM EDT [facility] HCT 39.9(L) 40.0 - 51.0 % LAB HEMATOLOGY METHOD 03/17/2025 6:48 PM EDT [facility] Platelet Count 179 155 - 369 10*3/uL LAB HEMATOLOGY METHOD 03/17/2025 6:48 PM EDT [facility] MCV 89 79 - 98 fL LAB HEMATOLOGY METHOD 03/17/2025 6:48 PM EDT [facility] MCH 30.1 26.0 - 32.0 pg LAB HEMATOLOGY METHOD 03/17/2025 6:48 PM EDT [facility] MCHC 33.8 30.7 - 35.5 g/dL LAB HEMATOLOGY METHOD 03/17/2025 6:48 PM EDT [facility] RDW 13.2 11.5 - 14.5 % LAB HEMATOLOGY METHOD 03/17/2025 6:48 PM EDT [facility] MPV 11.1 8.8 - 12.5 fL LAB HEMATOLOGY METHOD 03/17/2025 6:48 PM EDT [facility] nRBC 0.0 <=0.0 per 100 WBCs LAB HEMATOLOGY METHOD 03/17/2025 6:48 PM EDT [facility] Differential Type Automated LAB HEMATOLOGY METHOD 03/17/2025 6:48 PM EDT [facility] Neutrophils % 77 % LAB HEMATOLOGY METHOD 03/17/2025 6:48 PM EDT [facility] Lymphocytes % 11 % LAB HEMATOLOGY METHOD 03/17/2025 6:48 PM EDT [facility] Monocytes % 10 % LAB HEMATOLOGY METHOD 03/17/2025 6:48 PM EDT [facility] Eosinophils % 1 % LAB HEMATOLOGY METHOD 03/17/2025 6:48 PM EDT [facility] Basophils % 0 % LAB HEMATOLOGY METHOD 03/17/2025 6:48 PM EDT [facility] Immature Granulocytes % 1 % LAB HEMATOLOGY METHOD 03/17/2025 6:48 PM EDT [facility] Neutrophils Absolute 11.98(H) 1.60 - 6.10 10*3/uL LAB HEMATOLOGY METHOD 03/17/2025 6:48 PM EDT [facility] Lymphocytes Absolute 1.64 1.20 - 3.90 10*3/uL LAB HEMATOLOGY METHOD 03/17/2025 6:48 PM EDT [facility] Monocytes Absolute 1.57(H) 0.30 - 0.90 10*3/uL LAB HEMATOLOGY METHOD 03/17/2025 6:48 PM EDT [facility] Eosinophils Absolute 0.15 0.00 - 0.50 10*3/uL LAB HEMATOLOGY METHOD 03/17/2025 6:48 PM EDT [facility] Basophils Absolute 0.03 0.00 - 0.10 10*3/uL LAB HEMATOLOGY METHOD 03/17/2025 6:48 PM EDT [facility] Immature Granulocytes Absolute 0.08(H) 0.00 - 0.06 10*3/uL LAB HEMATOLOGY METHOD 03/17/2025 6:48 PM EDT [facility] Blood Venous blood specimen / Unknown Venipuncture / Unknown 03/17/2025 6:28 PM EDT 03/17/2025 6:43 PM EDT Narrative [facility] - 03/17/2025 6:48 PM EDT Therapeutic decision making should be based on absolute values, rather than percentages. us Michelle Craig MD LAB BLOOD ORDERABLES Final Re sult [facility] [address] [place] [address] documented in this encounter Visit Diagnoses Diagnosis Ureteropelvic junction (UPJ) obstruction, right- Primary Ureteropelvic junction (UPJ) obstruction, right Right flank pain Abdominal pain, unspecified site Postoperative surgical complication involving genitourinary system associated with genitourinary procedure, unspecified complication Ureteropelvic junction (UPJ) obstruction, right Ureteropelvic junction (UPJ) obstruction, right documented in [...] Given 03/18/2025 6:11 PM EDT 1,000 mg enoxaparin (Lovenox) syringe 40 mg 40 mg, Subcutaneous, Every 24 hours scheduled, First dose on Sat03/17/25 at 1830, Until Discontinued, RoutineIndications:Prophylaxis of Venous Thromboembolism Given 03/19/2025 8:22 AM EDT 40 mg Left Upper Arm (Back ) Given 03/18/2025 8:27 AM EDT 40 mg Le ft Lower Abdomen Given 03/17/2025 7:19 PM EDT 40 mg Le ft Lower Abdomen HYDROmorphone (Dilaudid) injection 0.5 mg 0.5 mg, Intravenous, Every 4 hours PRN, Starting on Sat03/17/25 at 1835, Until Sat03/19/25 at 1733, Routine, severe pain iohexol (OMNIPaque) 300 MG/ML injection As needed, Starting on Sat03/17/25 at 2204, Until Sat03/17/25 at 2235, Routine, Intraprocedure Given 03/17/2025 10:04 PM EDT 16 mL morphine PF 2 mg 2 mg, Intravenous, As needed, Starting on Sat03/17/25 at 1800, Until Sat03/19/25 at 1733, STAT, severe pain Given 03/17/2025 6:46 PM EDT 2 mg ondansetron (Zofran) injection 4 mg 4 [...] Until Discontinued, Routine 2103 (Given - Provider: Usrzula Sawyer RN - Comment: Jorge baumann to give tylenol)2122 (MAR Hold - Provider: Automatic Transfer Provider - Reason: Patient in procedure)2341 (MAR Unhold - Provider: Automatic Transfer Provider) 0020 (Not Given - Provider: Khushi Manzano RN - Reason: Patient/family refused)0555 (Not Given - Provider: Khushi Manzano RN - Reason: Patient/family refused)1228 (Not Given - Provider: Julieth Pablo RN - Reason: Patient/family refused)1811 (Given - Provider: Julieth Pablo RN)2346 (Given - Provider: Nenita Spears RN) 0629 (Given - Provider: Nenita Spears RN)1258 (Not Given - Provider: Tami Ramírez RN - Reason: Patient/family refused) cefTRIAXone (Rocephin) 1 g in sodium chloride 0.9% 100 mL IVPB (vial adapter required) (CANCELED) 1 g, Intravenous, Every 24 hours, First dose on Sat03/17/25 at 1840, Until Discontinued, Routine 1920 (New Bag - Provider: Urszula Sawyer RN)2040 (Stopped - Provider: Urszula Sawyer RN) enoxaparin (Lovenox) syringe 40 mg 40 mg, Subcutaneous, Every 24 hours scheduled, First dose on Sat03/17/25 at 1830, Until Discontinued, Routine 191 (Given - Provider: Urszula Sawyer, FARTUN)2121 (NOV Hold - Provider: Automatic Transfer Provider - Reason: Patient in procedure)2340 (NOV Unhold - Provider: Automatic Transfer Provider) 0827 (Given - Provider: Julieth Pablo, RN) 0822 (Given - Provider: Tami Ramírez, RN) fluconazole in NS (Diflucan) IVPB 400 mg (COMPLETED) 400 mg, Intravenous, Every 24 hours, 1 dose, First dose on Sat03/19/25 at 1045, Routine 1115 (New Bag - Provider: Tami Ramírez, FARTUN) gentamicin (Garamycin) 340 mg in sodium chloride [...] Transfer Provider - Reason: Patient in procedure)2340 (NOV Unhold - Provider: Automatic Transfer Provider) 0556 (Given - Provider: Khushi Manzano, FARTUN)1813 (Given - Provider: Julieth Pablo, FARTUN) 0707 (Given - Provider: Nenita Spears, FARTUN) sulfamethoxazole-trime thoprim (Bactrim DS) 800-160 MG per tablet 2 tablet 2 tablet, Oral, 2 times daily, 14 doses, First dose on Sat03/18/25 at 0900, Last dose on Sat03/24/25 at 2100, Routine 0827 (Given - Provider: Julieth Pablo, RN)2143 (Given - Provider: Nenita Spears, FARTUN) 08 (Given - Provider: Tami Ramírez, FARTUN) Continuous Medication Order 03/17/2025 03/18/2025 03/19/2025 lactated [...] MD)2138 (New Bag - Provider: Rick Ashley MD)2334 (New Bag - Provider: Ann Singleton RN) PRN Medication Order 03/17/2025 03/18/2025 03/19/2025 HYDROmorphone (Dilaudid) injection 0.5 mg 0.5 mg, Intravenous, Every 4 hours PRN, Starting on Sat03/17/25 at 1835, Until Sat03/19/25 at 1733, Routine, severe pain 2121 (MAR Hold - Provider: Automatic Transfer Provider - Reason: Patient in procedure)2340 (MAR Unhold - Provider: Automatic Transfer Provider) iohexol (OMNIPaque) 300 MG/ML injection (CANCELED) As needed, Starting on Sat03/17/25 at 2204, Until Sat03/17/25 at 2235, Routine, Intraprocedure 220 (Given - Provider: Allan Daley MD - Comment: RIGHT RGP) morphine PF 2 mg 2 mg, Intravenous, As needed, Starting on Sat03/17/25 at 1800, Until Sat03/19/25 at 1733, STAT, severe pain 184 (Given - Provider: Krystal Rabago RN)2121 (MAR Hold - Provider: Automatic Transfer Provider - Reason: Patient in procedure)234 (MAR Unhold - Provider: Automatic Transfer Provider) ondansetron (Zofran) injection 4 mg 4 mg, Intravenous, Every 6 hours PRN, Starting on Sat03/17/25 at 1826, Until Sat03/19/25 at 1733, Routine, nausea, vomiting 2121 ([facility] Hold - Provider: Automatic Transfer Provider - Reason: Patient in procedure)2340 ([facility] Unhold - Provider: Automatic Transfer Provider) oxyCODONE (Roxicodone) immediate release tablet 5 mg 5 mg, Oral, Every 4 hours PRN, Starting on Sat03/17/25 at 1826, Until Sat03/19/25 at 1733, Routine, severe pain 2121 ([facility] Hold - Provider: Automatic Transfer Provider - Reason: Patient in procedure)2340 ([facility] Unhold - Provider: Automatic Transfer Provider) sodium chloride 0.9 % flush 10 mL(Linked Group 1) 10 mL, Intravenous, As needed, Starting on Sat03/17/25 at 1825, Until Sat03/19/25 at 1733, Routine, line care 2121 ([facility] Hold - Provider: Automatic Transfer Provider - Reason: Patient in procedure)2340 ([facility] Unhold - Provider: Automatic Transfer Provider) Linked [...] documented as of this encounter Care Teams Certified Alcohol Counselor Relationship Specialty Start Date End Date Thiago Gregory APRN [address] [place] [address] PCP - General 03/20/24 Doug Bill RN ```````````````````````[facility] - PACU - MAJOR, TOM José Registered Nurse 12/23/24 documented as of this encounter
--- OUTSIDE RECORDS SUMMARY | 2025-04-08 09:10 | XMS_ITS | Encounter Summary ---
Author Organization Healthcare Address [address] [place] [address] Care Team Providers Care Diver Tender Name Role Phone Thiago Gregory APRN Primary Care Provider [phone] Doug Bill RN Unavailable Unavailable Reason for Referral * Other Medical (Routine) - Pending Review Specialty Diagnoses / Procedures Referred By Contac t Referred To Contact Diagnoses Primary osteoarthritis of knees, bilateral Procedures Injection / Aspiration - Large Joint: bilateral knee Nik Winter MD [address] [place] [address] Phone: tel: fax: Referral ID Status Reason Start Date Expiration Date V isits Requested Visits Authorized [id number] Pending Review 04/08/2025 10/08/2026 1 1 Reason for Visit * Reason Comments Calcium pyrophosphate deposition disease Follow-up Encounter Details Date Type Department Care Team (Latest Contact Info) Description 04/08/2025 9:10 AM EDT Office Visit [facility] [address], [address]nd [place] [address] Lianne Yañez, STEVEN [address] [place] [address] Calcium pyrophosphate deposition disease (Primary Dx); Primary [...] any time in the past 12 m [facility], were you homeless or living [...] drink first t nigel in the morning (EYE-SIDING MECHANIC) to steady your nerves or to get rid of a hangover? 0 03/17/2025 CAGE Questionnaire Score 0 025 Utilities Answer Date Recorded In the past 12 months has [employer], gas, oil, or water [employer] threatened to shut off services in your [...] way Not at all 04/08/2025 9:53 AM EDT Mattie Rueda , RN Patient Health Questionnaire -9 Score 0 04/08/2025 9:53 AM EDT Mattie Rueda, RN * If you checked off any problems on this questionnaire so far, Question Answer Date of Assessment Author How difficult have these problems made it for you to do your work, take care of things at home, or get along with other people? Not difficult at all 04/08/2025 9:53 AM EDT Mattie Rueda , RN documented as of this encounter Plan of Treatment Upcoming Encounters Date Type Department Care Team (Latest Contact Info) Description 04/29/2025 9:00 AM EDT Office Visit Medical Office Building Urology [address] [facility], [address] [place] [address] Talib Serna MD [address] [address] 05/17/2025 10:35 AM EDT Hospital Encounter [facility] ROOM [address] [place] [address] Talib Serna MD [address] [address] 05/17/2025 10:35 AM EDT - 05/17/2025 12:05 PM EDT Surgery [facility] [address] [place] [address] Talib Serna MD [address] [address] URETEROSCOPY, WITH BIOPSY WITH POSSIBLE R URETERAL STENT EXCHANGE [43033 (CPT )] 06/17/2025 12:00 PM EDT Appointment [facility] [address], [address]nd [place] [address] 06/17/2025 1:30 PM EDT Office Visit Medical Office Building Urology [address], [address] [place] [address] Talib Serna MD [address] [place] [address] 10/21/2025 11:00 AM EST Office Visit [facility] [address], [address] [place] [address] Mayi Ballard MD [address] [facility] [address] [place] [address] Pending Results Name Type Priority Associated Diagnoses Date /Time Injection / Aspiration - Large Joint: bilateral knee Procedures Routine Primary osteoarthritis of knees, bilateral 04/08/2025 9:10 AM EDT Scheduled Procedures Name Priority Associated Diagnoses Date/Ti me URETEROSCOPY, WITH BIOPSY Ureteropelvic junction (UPJ) obstruction, right 05/17/2025 10:35 AM EDT documented as of this encounter Goals Goal Patient Goal Type Associated Problems Recent Progress Patient-Stated? Author Autogenerat ed Goal Care Plan Autogenerated Problem No Lidia Bell documented as of this encounter Procedures Procedure Name Priority Date/Time Associated Diagnosis Comments LARGE JOINT ARTHROCENTESIS Routine 04/08/2025 9:10 AM EDT Primary osteoarthritis of knees, bilateral documented in this encounter Results * Uric acid (04/08/2025 12:14 PM EDT) Uric Acid, Plasma 6.4 3.7 - 8.0 mg/dL 04/08/2025 2:22 PM EDT [facility] Blood Venous blood specimen / Unknown Venipuncture / Unknown 04/08/2025 12:14 PM EDT 04/08/2025 12:15 PM EDT us Nik Winter MD LAB BLOOD ORDERABLES Final Result [facility] [address] [place] [address] documented in this encounter Visit Diagnoses Diagnosis [...] documented as of this encounter Care Teams Diver Tender Relationship Specialty Start Date End Date Thiago Gregory APRN [address] [place] [address] PCP - General 03/20/24 Doug Bill RN ```````````````````````CH - PACU - MAJOR, PAV A Registered Nurse 12/23/24 documented as of this encounter
--- OUTSIDE RECORDS SUMMARY | 2025-04-15 15:09 | XMS_ITS | Encounter Summary ---
Author Organization Healthcare Address [address] [id number] Care Team Providers Care Atmospheric Physics Professor Name Role Phone Thiago Gregory APRN Primary Care Provider [phone] Doug Bill RN Unavailable Unavailable Encounter Details Date Type Department Care Team (Late st Contact Info) Description 04/08/2025 Telephone [facility] [address], [address] [place] [address] Talib Serna MD [address] [place] [address] Social History Tobacco Use Types Packs/Day Years [...] any time in the past 12 m [facility], were you homeless or living in [...] drink first t nigel in the morning (EYE-AIR BRAKE OPERATOR) to steady your nerves or to get rid of a hangover? 0 03/17/2025 CAGE Questionnaire Score 0 06/18/2 025 Utilities Answer Date Recorded In the [...] way Not at all 04/08/2025 9:53 AM Mattie Wood RN Patient Health Questionnaire -9 Score 0 04/08/2025 9:53 AM Mattie Wood RN * If you checked off any problems on this questionnaire so far, Question Answer Date of Assessment Author How difficult have these problems made it for you to do your work, take care of things at home, or get along with other people? Not difficult at all 04/08/2025 9:53 AM Mattie Wood RN documented as of this encounter Miscellaneous Notes * Telephone Encounter - Angy Chapa - 04/08/2025 12:14 PM EDT Left patient a detailed vm and sent patient a Tendril message relaying message. Left him with clinic phone number for any questions or concerns. ----- Message from Talib Serna MD sent at 04/08/2025 10:38 AM EDT ----- Regarding: results Can someone let this patient know that his urinalysis did not show any obvious bacteria but did show some yeast? I sent in a prescription for that to his local pharmacy. We will also follow up on theculture results to confirm. Thanks! documented in this encounter Plan of Treatment Upcoming Encounters Date Type Department Care Team (Latest Contact Info) Description 04/29/2025 9:00 AM EDT Office Visit Medical Office Building Urology [address] [facility], [address] [place] [address] Talib Serna MD [address] [facility] [place] [address] 05/17/2025 10:35 AM EDT Hospital Encounter [facility]PERATING ROOM [address] [place] [address] Talib Serna MD [address] [address] 05/17/2025 10:35 AM EDT - 05/17/2025 12:05 PM EDT Surgery [facility]ATING ROOM [address] [place] [address] Talib Serna MD [address] [address] URETEROSCOPY, WITH BIOPSY WITH POSSIBLE R URETERAL STENT EXCHANGE [08934 (CPT )] 06/17/2025 12:00 PM EDT Appointment [facility] [address], [address]nd [place] [address] 06/17/2025 1:30 PM EDT Office Visit Medical Office Building Urology [address] [facility], [address] [place] [address] Talib Serna MD [id number] [place] [address] 10/21/2025 11:00 AM EST Office Visit [facility] [address], [address] [place] [address] Mayi Ballard MD [address] [facility] [address] [place] [address] Scheduled Procedures Name Priority Associated Diagnoses Date/Ti me URETEROSCOPY, WITH BIOPSY Ureteropelvic junction (UPJ) obstruction, right 05/17/2025 10:35 AM EDT documented as of this encounter Goals Goal Patient Goal Type Associated Problems Recent Progress Patient-Stated? Author Autogenerat ed Goal Care Plan Autogenerated Problem No Ray Lidia Alexi documented as of this encounter Visit Diagnoses [...] documented as of this encounter Care Teams Atmospheric Physics Professor Relationship Specialty Start Date End Date Thiago Gregory APRN [address] [place] [address] PCP - General 03/20/24 Doug Bill, RN ```````````````````````CH - PACU - MAJOR, PAV A Registered Nurse 12/23/24 documented as of this encounter
--- OUTSIDE RECORDS SUMMARY | 2025-04-15 15:09 | XMS_ITS | Encounter Summary ---
Author Organization Healthcare Address [address] [id number] Care Team Providers Care Application Counselor Name Role Phone Thiago Gregory APRN Primary Care Provider [phone] Doug Bill RN Unavailable Unavailable Encounter Details Date Type Department Care Team (Late st Contact Info) Description 04/08/2025 Orders Only [place] [facility] [address], [address] [place] [address] Talib Serna MD [address] [place] [address] Urinary tract infection without hematuria, site unspecified (Primary Dx) Social History Tobacco Use Types [...] any time in the past 12 m [facility], were you homeless or living in a [...] drink first t nigel in the morning (EYE-VENETIAN BLIND INSTALLER) to steady your nerves or to get [...] Wood RN documented as of this encounter Plan of Treatment Upcoming Encounters Date Type Department Care Team (Latest Contact Info) Description 04/29/2025 9:00 AM EDT Office Visit Medical Office Building Urology [address] [facility], [address] [place] [address] Talib Serna MD [address] [address] 05/17/2025 10:35 AM EDT Hospital Encounter [facility]ATING ROOM [address] [place] [address] Talib Serna MD [address] [address] 05/17/2025 10:35 AM EDT - 05/17/2025 12:05 PM EDT Surgery [facility] RO[facility] [address] [place] [address] Talib Serna MD [id number] [place] [address] URETEROSCOPY, WITH BIOPSY WITH POSSIBLE R URETERAL STENT EXCHANGE [99957 (CPT )] 06/17/2025 12:00 PM EDT Appointment [facility] [address]nd [place] [address] 06/17/2025 1:30 PM EDT Office Visit Medical Office Building Urology [address] [facility], [address] [place] [address] Talib Serna MD [address] [place] [address] 10/21/2025 11:00 AM EST Office Visit [place] [facility] [address], [address] [place] [address] Mayi Ballard MD [address] [facility] [address] [place] [address] Scheduled Procedures Name Priority Associated Diagnoses Date/Ti me URETEROSCOPY, WITH BIOPSY Ureteropelvic junction (UPJ) obstruction, right 05/17/2025 10:35 AM EDT documented as of this encounter Goals Goal Patient Goal Type Associated Problems Recent Progress Patient-Stated? Author Autogenerat ed Goal Care Plan Autogenerated Problem No Ray Lidia Alexi documented as of this encounter Visit Diagnoses Diagnosis Urinary tract infection without hematuria, site unspecified- Primary Ureteropelvic junction (UPJ) obstruction, right documented in this encounter Additional Health Concerns Active Problems Noted Date Diagnosed Date Autogenerated Problem 03/23/2025 Assessment Noted Time PHQ-9 Depression Total Score: 0 04/08/20 25 9:53 AM EDT A fall risk assessment has been complete d for the patient 04/08/2025 9:53 AM EDT A Body Mass Index follow-up plan has been documented for the patient 03/19/2025 1:33 PM EDT documented as of this encounter Care Teams Application Counselor Relationship Specialty Start Date End Date Thiago Gregory APRN [address] [place] [address] [place] [address] PCP - General 03/20/24 Doug Bill RN ```````````````````````CH - PACU - MAJOR, PAV A Registered Nurse 12/23/24 documented as of this encounter
--- OUTSIDE RECORDS SUMMARY | 2025-04-15 15:09 | XMS_ITS | Encounter Summary ---
Author Organization Healthcare Address [address] [id number] Care Team Providers Care Health Policy Analyst Name Role Phone Thiago Gregory APRN Primary Care Provider [phone] Doug Bill RN Unavailable Unavailable Reason for Visit * Reason Onset Date Comments HCN Clinical Concern/Question 04/08/2025 Encounter Details Date Type Department Care Team (Late st Contact Info) Description 04/08/2025 Telephone [facility] [address], [address] [place] [address] Talib Serna MD [address] [place] [address] HCN Clinical Concern/Question Social History [...] any time in the past 12 m [facility], were you homeless or living in a senior living (including now)? No 12/07/2024 AUDIT-C Answer Date [...] drink first t nigel in the morning (EYE-FISHER TROLL LINE) to steady your nerves or to get [...] encounter Miscellaneous Notes * Telephone Encounter - Sheri Newby LPN - 04/08/2025 8:44 AM EDT Spoke with patient and let him know orders are in. Advised the clinic will call with results when received. Patient verbalized understanding. * Telephone Encounter - Andrew Prabhakar - 04/08/2025 8:06 AM EDT Clinical Concern/Question Reason for Call: He is urinating every couple of minutes and its painful. He is asking to be testedfor a UTI. He lives out of town but has an appt at [facility] this morning and said he could do a lab while he is there. Best contact number: [phone] (mobile) Optimal time of day to reach caller: ANYTIME Additional comments/information from caller: None Note: Please do not reply to this message. Follow-up communication and further actions as a result of this message need to be communicated with the patient directly, if the patient is not active onMyChart. If the patient is active on MyChart, they will receive notification of the communication/outcome via [employer]t. documented in this encounter Plan of Treatment Upcoming Encounters Date Type Department Care Team (Latest Contact Info) Description 04/29/2025 9:00 AM EDT Office Visit Medical Office Building Urology [address] [facility] [place] [facility], [address] [place] [address] Talib Serna MD [id number] [place] [address] 05/17/2025 10:35 AM EDT Hospital Encounter [facility] A OPERATING ROOM [address] [place] [address] Talib Serna MD [address] [address] 05/17/2025 10:35 AM EDT - 05/17/2025 12:05 PM EDT Surgery [facility] A [facility]PERATING ROOM [address] [place] [address] Talib Serna MD [address] [address] URETEROSCOPY, WITH BIOPSY WITH POSSIBLE R URETERAL STENT EXCHANGE [42850 (CPT )] 06/17/2025 12:00 PM EDT Appointment [facility] [address]nd [place] [address] 06/17/2025 1:30 PM EDT Office Visit Medical Office Building Urology [address] [facility], [address] [place] [address] Talib Serna MD [address] [address] 10/21/2025 11:00 AM EST Office Visit [facility] [address], [address] [place] [address] Mayi Ballard MD [address] [facility] [address] [place] [address] Scheduled Procedures Name Priority Associated [...] documented as of this encounter Care Teams Health Policy Analyst Relationship Specialty Start Date End Date Thiago Gregory APRN [address] [place] [address] PCP - General 03/20/24 Doug Bill, RN ```````````````````````CH - PACU - MAJOR, PAV A Registered Nurse 12/23/24 documented as of this encounter
--- OUTSIDE RECORDS SUMMARY | 2025-04-15 15:09 | XMS_ITS | Encounter Summary ---
Author Organization [facility] Address [address] [id number] Care Team Providers Care Cellophane Wrapping Examiner Name Role Phone Thiago Gregory APRN Primary Care Provider [phone] Doug Bill RN Unavailable Unavailable Encounter Details Date Type Department Care Team (Latest Contact Info) Description 03/17/2025 Travel Social History Tobacco Use Types Packs/Day [...] in the past 12 m [facility], were you homeless or living in [...] t nigel in the morning (EYE-DIRECTOR OF MEDICAL STAFF SERVICES) to steady your nerves or to get [...] Date of Assessment Author No Risk Indicated 03/17/2025 5:19 PM EDT Alexi Rabago RN * Question Answer Date of Assessment Author 1. Wish to be (Past 1 Month) No 025 5:19 PM EDT Krystal Rabago, FARTUN 2. Non-Specific Active Suici sena Thoughts (Past 1 Month) No 03/17/2025 5:19 PM EDT Krystal Rabago RN 6. Suicidal Behavior (Lifetime) No 5:19 PM EDT Krystal Rabago RN documented as of this encounter Plan of Treatment Upcoming Encounters Date Type Department Care Team (Latest Contact Info) Description 04/29/2025 9:00 AM EDT Office Visit Medical Office Building Urology [address] [facility], [address] [place] [address] Talib Serna MD [address] [address] 05/17/2025 10:35 AM EDT Hospital Encounter [facility] A OPERATING ROOM [address] [place] [address] Talib Serna MD [address] [address] 05/17/2025 10:35 AM EDT - 05/17/2025 12:05 PM EDT Surgery [facility] A OPERATING ROOM [address] [place] [address] Talib Serna MD [address] [address] URETEROSCOPY, WITH BIOPSY WITH POSSIBLE R URETERAL STENT EXCHANGE [44692 (CPT )] 06/17/2025 12:00 PM EDT Appointment [facility] [address] [place] [address] 06/17/2025 1:30 PM EDT Office Visit Medical Office Building Urology [address] [facility], [address] [place] [address] Talib Serna MD [address] [place] [address] 10/21/2025 11:00 AM EST [facility] [address] [place] [address] Mayi Ballard MD [address] [facility] [address] [place] [address] Scheduled Procedures Name Priority Associated Diagnoses Date/Ti me URETEROSCOPY, WITH BIOPSY Ureteropelvic junction (UPJ) obstruction, right 05/17/2025 10:35 AM EDT documented as of this encounter Visit Diagnoses Not on filedocumented in this encounter Additional Health Concerns Assessment Noted Time A fall risk assessment has been complete d for the patient 03/16/2025 9:45 AM EDT A Body Mass Index follow-up plan has been documented for the patient 03/19/2025 1:33 PM EDT documented as of this encounter Care Teams Cellophane Wrapping Examiner Relationship Specialty Start Date End Date Thiago Gregory APRN [address] [place] [address] PCP - General 03/20/24 Doug Bill, RN ```````````````````````CH - PACU - MAJOR, PAV A Registered Nurse 12/23/24 documented as of this encounter
--- OUTSIDE RECORDS SUMMARY | 2025-04-15 15:09 | XMS_ITS | Encounter Summary ---
Author Organization Healthcare Address [address] [id number] Care Team Providers Care Property Investor Name Role Phone Thiago Gregory APRN Primary Care Provider [phone] Doug Bill RN Unavailable Unavailable Encounter Details Date Type Department Care Team (Late st Contact Info) Description 03/17/2025 Orders Only External Location [address] [place] [address] Provider, External Social History Tobacco Use Types Packs/Day Years [...] any time in the past 12 m [facility], were you homeless or living [...] drink first t nigel in the morning (EYE-BOBBIN COIL WINDER) to steady your nerves or to get [...] Behavior (Lifetime) No 8:00 AM EDT Tami Ramírez, RN documented as of this encounter Plan of Treatment Upcoming Encounters Date Type Department Care Team (Latest Contact Info) Description 04/29/2025 9:00 AM EDT Office Visit Medical Office Building Urology [address] [facility], [address] [place] [address] Talib Serna MD [address] [address] 05/17/2025 10:35 AM EDT Hospital Encounter [facility] A OPERATING ROOM [address] [place] [address] Talib Serna MD [address] [address] 05/17/2025 10:35 AM EDT - 05/17/2025 12:05 PM EDT Surgery [facility]AV A OPERATING ROOM [address] [place] [address] Talib Serna MD [address] [address] URETEROSCOPY, WITH BIOPSY WITH POSSIBLE R URETERAL STENT EXCHANGE [90627 (CPT )] 06/17/2025 12:00 PM EDT Appointment [facility] [address] [place] [address] 06/17/2025 1:30 PM EDT Office Visit Medical Office Building Urology [address] [facility], [address] [place] [address] Talib Serna MD [address] [place] [address] 10/21/2025 11:00 AM EST [facility] Visit [facility] [address] [place] [address] Mayi Ballard MD [address] [facility] [address] [place] [address] Scheduled Procedures Name Priority Associated Diagnoses Date/Ti me URETEROSCOPY, WITH BIOPSY Ureteropelvic junction (UPJ) obstruction, right 05/17/2025 10:35 AM EDT documented as of this encounter Procedures Procedure Name Priority Date/Time Associated Diagnosis Comments CT [facility] OUTSIDE IMAGES 03/17/2025 2:28 PM EDT documented in this encounter Results * CT [facility] OUTSIDE IMAGES (03/17/2025 2:28 PM EDT) Anatomical Region Laterality Modality Computed Tomogra phy 03/17/2025 2:28 PM EDT External Provider IM CT PROCEDURES Final Result documented in this encounter Visit Diagnoses Not on filedocumented in this encounter Additional Health Concerns Assessment Noted Time A fall risk assessment has been complete d for the patient 03/16/2025 9:45 AM EDT A Body Mass Index follow-up plan has been documented for the patient 03/19/2025 1:33 PM EDT documented as of this encounter Care Teams Property Investor Relationship Specialty Start Date End Date Thiago Gregory APRN [address] [place] [address] PCP - General 03/20/24 Bill, Doug L, RN ```````````````````````CH - PACU - MAJOR, PAV A Registered Nurse 12/23/24 documented as of this encounter
--- OUTSIDE RECORDS SUMMARY | 2025-04-15 15:09 | XMS_ITS | Encounter Summary ---
Author Organization Healthcare Address [address] [id number] Care Team Providers Care Project Controls Scheduler Name Role Phone Thiago Gregory APRN Primary Care Provider +1- [phone] Doug Bill RN Unavailable Unavailable Encounter Details Date Type Department Care Team (Late st Contact Info) Description 03/23/2025 Telephone [place] Clinic Urology [address], [address] [place] [address] Talib Serna MD [address] [place] [address] Social History Tobacco Use Types [...] were you homeless or living in a fpc (including now)? No 12/07/2024 AUDIT-C Answer Date [...] drink first t nigel in the morning (EYE-DRIVER EXAMINER) to steady your nerves or to get rid of a hangover? 0 03/17/2025 CAGE Questionnaire Score 0 025 Utilities Answer Date Recorded In the past 12 months has th e electric, gas, oil, or water [employer] threatened to shut off services in your home? No 12/07/2024 Sex and Gender Information Value Date Recorded Sex Assigned at Male 10/03/2024 11:15 AM EST Legal Sex Male 6:18 PM EDT Gender Identity Not on file Sexual Orientation Not on file documented as of this encounter Miscellaneous Notes * Telephone Encounter - Lidia Bell - 03/23/2025 12:10 PM EDT Spoke with patient scheduled 05/17 surgery, patient is aware of anesthesia preop screening call andarrival time call prior to surgery , urine culture order mailed to be collected at [facility] 05/03 documented in this encounter Plan of Treatment Upcoming Encounters Date Type Department Care Team (Latest Contact Info) Description 04/29/2025 9:00 AM EDT Office Visit Medical Office Building Urology [address] [facility], [address] [place] [address] Talib Serna MD [address] [address] 05/17/2025 10:35 AM EDT Hospital Encounter [facility] [address] [place] [address] Talib Serna MD [address] [address] 05/17/2025 10:35 AM EDT - 05/17/2025 12:05 PM EDT Surgery [facility] [address] [place] [address] Talib Serna MD [address] [address] URETEROSCOPY, WITH BIOPSY WITH POSSIBLE R URETERAL STENT EXCHANGE [16036 (CPT )] 06/17/2025 12:00 PM EDT Appointment [facility] [address], [address] [place] [address] 06/17/2025 1:30 PM EDT Office Visit Medical Office Building Urology [address] [facility], [address] [place] [address] Talib Serna MD [address] [place] [address] 10/21/2025 11:00 AM EST Office Visit [place] [facility] Medicine Specialties [address], [address] [place] [address] Mayi Ballard MD [address] [facility] [address] [place] [address] Scheduled Orders Name Type Priority Associated Diagnoses Orde r Schedule Urine Culture Microbiology Routine Ureteropelvic junction (UPJ) obstruction, right Expected: 05/03/2025 (Approximate), Expires: 09/24/2026 Scheduled Procedures Name Priority Associated Diagnoses Date/Ti me URETEROSCOPY, WITH BIOPSY Ureteropelvic junction (UPJ) obstruction, right 05/17/2025 10:35 AM EDT documented as of this encounter Goals Goal Patient Goal Type Associated Problems Recent Progress Patient-Stated? Author Autogenerat ed Goal Care Plan Autogenerated Problem No Lidia Bell S documented as of this encounter Visit Diagnoses Diagnosis Ureteropelvic junction (UPJ) obstruction, right- Primary Ureteropelvic junction (UPJ) obstruction, right documented in this encounter Additional Health Concerns Active Problems Noted Date Diagnosed Date Autogenerated Problem 03/23/2025 Assessment Noted Time A fall risk assessment has been complete d for the patient 03/16/2025 9:45 AM EDT A Body Mass Index follow-up plan has been documented for the patient 03/19/2025 1:33 PM EDT documented as of this encounter Care Teams Project Controls Scheduler Relationship Specialty Start Date End Date Thiago Gregory APRN [address] [place] [address] PCP - General 03/20/24 Doug Bill RN ```````````````````````CH - PACU - MAJOR, TOM A Registered Nurse 12/23/24 documented as of this encounter
--- OUTSIDE RECORDS SUMMARY | 2025-04-15 15:09 | XMS_ITS | Encounter Summary ---
Author Organization [facility] Address [address] [id number] Care Team Providers Care Chief Medical Technologist Name Role Phone Thiago Gregory APRN Primary Care Provider +1 [phone] Doug Bill RN Unavailable Unavailable Encounter Details Date Type Department Care Team (Latest Contact Info) Description 04/08/2025 Travel Social History Tobacco Use Types Packs/Day [...] any time in the past 12 m [facility], were you homeless or living in [...] drink first t nigel in the morning (EYE-COREMAKER SUPERVISOR) to steady your nerves or to [...] at all 04/08/2025 9:53 AM Mattie Wood , RN Patient Health Questionnaire -9 Score [...] Urology [address] [facility], [address] [place] [address] Talib Serna MD [address] [address] 05/17/2025 10:35 AM EDT Hospital Encounter [facility] RO[facility] [address] [place] [address] Talib Serna MD [address] [address] 05/17/2025 10:35 AM EDT - 05/17/2025 12:05 PM EDT Surgery [facility] [address] [place] [address] Talib Serna MD [address] [address] URETEROSCOPY, WITH BIOPSY WITH POSSIBLE R URETERAL STENT EXCHANGE [73970 (CPT )] 06/17/2025 12:00 PM EDT Appointment [facility] [address], [address] [place] [address] 06/17/2025 1:30 PM EDT Office Visit Medical Office Building Urology [address] [facility], [address] [place] [address] Talib Serna MD [address] [place] [address] 10/21/2025 11:00 AM EST Office Visit [place] [facility] Medicine Specialties [address], [address]nd [place] [address] Mayi Ballard MD [address] [facility] [address] [place] [address] Scheduled Procedures Name Priority Associated [...] documented as of this encounter Care Teams Chief Medical Technologist Relationship Specialty Start Date End Date Thiago Gregory APRN [address] [place] [address] PCP - General 03/20/24 Doug Bill RN ```````````````````````CH - PACU - MAJOR, PAV A Registered Nurse 12/23/24 documented as of this encounter
--- OUTSIDE RECORDS SUMMARY | 2025-04-15 15:09 | XMS_ITS | Encounter Summary ---
Author Organization Healthcare Address [address] [id number] Care Team Providers Care Dressmaking Teacher Name Role Phone Thiago Gregory APRN Primary Care Provider +1- [phone] Doug Bill RN Unavailable Unavailable Encounter Details Date Type Department Care Team (Late st Contact Info) Description 04/08/2025 Orders Only [place] [facility] [address], [address] [place] [address] Talib Serna MD [address] [place] [address] Urinary tract infection without hematuria, [...] any time in the past 12 m [facility], were you homeless or living in a [...] drink first t nigel in the morning (EYE-WHEEL PRESS OPERATOR) to steady your nerves or to [...] Office Building Urology [address] [facility], [address] [place] [address] Talib Serna MD [address] [address] 05/17/2025 10:35 AM EDT Hospital Encounter [facility]ATING ROOM [address] [place] [address] Talib Serna MD [address] [address] 05/17/2025 10:35 AM EDT - 05/17/2025 12:05 PM EDT Surgery [facility] [address] [place] [address] Talib Serna MD [address] [address] URETEROSCOPY, WITH BIOPSY WITH POSSIBLE R URETERAL STENT EXCHANGE [96779 (CPT )] 06/17/2025 12:00 PM EDT Appointment [facility] [address], 2nd [place] [address] 06/17/2025 1:30 PM EDT Office Visit Medical Office Building Urology [address] [facility], [address] [place] [address] Talib Serna MD [address] [place] [address] 10/21/2025 11:00 AM EST Office Visit [place] [facility] [address], [address] [place] [address] Mayi Ballard MD [address] [place] [address] Scheduled Procedures Name Priority Associated Diagnoses Date/Ti me URETEROSCOPY, WITH BIOPSY Ureteropelvic junction (UPJ) obstruction, right 05/17/2025 10:35 AM EDT documented as of this encounter Goals Goal Patient Goal Type Associated Problems Recent Progress Patient-Stated? Author Autogenerat ed Goal Care Plan Autogenerated Problem No Lidia Bell documented as of this encounter Results * (ABNORMAL) Urine Culture - Lab Collect (04/08/2025 8:58 AM EDT) Culture 10,000 - 100,000 CFU/mL Lucie albicans(A) 04/10/2025 1:02 PM EDT [facility] Comment: This isolate has been identified using the FDA Approved MALDI Krillion[employer] CA System Edited result: Previously reported as Yeast on 04/10/2025 at 0514 EDT. Urine Urine specimen obtained by clean catch procedure / Unknown Non-blood Collection / Unknown 04/08/2025 8:58 AM EDT 04/08/2025 8:59 AM EDT us Talib Serna MD LAB MICROBIOLOGY - GENERAL ORD ERABLES Final Result [facility] [address] [place] [address] * (ABNORMAL) UA w/ Micro (Culture NOT Included) - Lab Collect (04/08/2025 8:58 AM EDT) Color, Urine Yellow LAB URINALYSIS - AUTOMATED METHOD 04/08/2025 10:00 AM [facility] Clarity, Urine Cloudy LAB URINALYSIS - AUTOMATED METHOD 04/08/2025 10:00 AM [facility] Spec Garner, Urine 1.017 1.005 - 1.030 LAB URINALYSIS - AUTOMATED METHOD 04/08/2025 10:00 AM [facility] pH, Urine 6.0 5.0 - 8.0 LAB URINALYSIS - AUTOMATED METHOD 04/08/2025 10:00 AM [facility] Protein, Urine >=300(A) Negative mg/dL LAB URINALYSIS - AUTOMATED METHOD 04/08/2025 10:00 AM [facility] Glucose, Urine Negative Negative mg/dL LAB URINALYSIS - AUTOMATED METHOD 04/08/2025 10:00 AM [facility] Ketones, Urine 15(A) Negative mg/dL LAB URINALYSIS - AUTOMATED METHOD 04/08/2025 10:00 AM [facility] Blood, Urine Small(A) Negative LAB URINALYSIS - AUTOMATED METHOD 04/08/2025 10:00 AM [facility] Bilirubin, Urine Negative Negative LAB URINALYSIS - AUTOMATED METHOD 04/08/2025 10:00 AM [facility] Urobilinogen, Urine 1.0 0.2 to 1.0 mg/dL LAB URINALYSIS - AUTOMATED METHOD 04/08/2025 10:00 AM [facility] Leukocytes, Urine Large(A) Negative LAB URINALYSIS - AUTOMATED METHOD 04/08/2025 10:00 AM [facility] Nitrite, Urine Negative Negative LAB URINALYSIS - AUTOMATED METHOD 04/08/2025 10:00 AM [facility] RBC, Urine 11 - 15(A) 0 to 3 /HPF LAB URINALYSIS - AUTOMATED METHOD 04/08/2025 10:00 AM [facility] WBC, Urine >50(A) 0 to 5 /HPF LAB URINALYSIS - AUTOMATED METHOD 04/08/2025 10:00 AM [facility] Squamous Epithelial Cells 0 - 2 0 to 5 /HPF LAB URINALYSIS - AUTOMATED METHOD 04/08/2025 10:00 AM [facility] Hyaline Casts 0 - 2 0 to 5 /LPF LAB URINALYSIS - AUTOMATED METHOD 04/08/2025 10:00 AM EDT [facility] Bacteria, Urine Negative Negative LAB URINALYSIS - AUTOMATED METHOD 04/08/2025 10:00 AM EDT [facility] Renal Tubular Cells Present Absent LAB URINALYSIS - AUTOMATED METHOD 04/08/2025 10:00 AM EDT [facility] Yeast (Budding and/or Pseudohyphae) Present(A) Absent LAB URINALYSIS - AUTOMATED METHOD 04/08/2025 10:00 AM EDT [facility] Urine Urine specimen obtained by clean catch procedure / Unknown Non-blood Collection / Unknown 04/08/2025 8:58 AM EDT 04/08/2025 8:59 AM EDT us Talib Serna MD LAB URINE ORDERABLES Final Res ult [facility] [address] [place] [address] documented in this encounter Visit Diagnoses Diagnosis Urinary tract [...] documented as of this encounter Care Teams Dressmaking Teacher Relationship Specialty Start Date End Date Thiago Gregory, AGRICULTURE PROFESSOR [address] [place] [address] PCP - General 03/20/24 Doug Bill, RN ```````````````````````CH - PACU - MAJOR, PAV A Registered Nurse 12/23/24 documented as of this encounter
--- OUTSIDE RECORDS SUMMARY | 2025-04-15 15:10 | XMS_ITS | Encounter Summary ---
Author Organization Healthcare Address [address] [id number] Care Team Providers Care Tobacco Sieve Operator Name Role Phone Thiago Gregory APRN Primary Care Provider +1- [phone] Doug Bill RN Unavailable Unavailable Reason for Visit * Reason Onset Date Comments HCN - Patient Message 03/17/2025 Pain after stent removal Encounter Details Date Type Department Care Team (Late st Contact Info) Description 03/17/2025 Telephone [place] [facility] [address], [address]nd [place] [address] Talib Serna MD [address] [place] [address] HCN - Patient Message (Pain [...] time in the past 12 m [facility], were you homeless or living in a group home (including now)? No 12/07/2024 AUDIT-C Answer [...] drink first t nigel in the morning (EYE-DRYING OVEN ATTENDANT) to steady your nerves or to get [...] encounter Miscellaneous Notes * Telephone Encounter - Alayna Squires - 03/17/2025 4:29 PM EDT Called and spoke with patient and he states that he has been to [facility] and the doctors there and he himself have spoken to and that he is currently on his way to ED to be seen. * Telephone Encounter - Yuli Headley - [...] optimal time of day to reach caller: [phone] Note: Please do not reply to this message. Follow-up communication and further actions as a result of this message need to be communicated with the patient directly, if the patient is not active onMyChart. If the patient is active on MyChart, they will receive notification of the communication/outcome via [employer]. documented in this encounter Plan of Treatment Upcoming Encounters Date Type Department Care Team (Latest Contact Info) Description 04/29/2025 9:00 AM EDT Office Visit Medical Office Building Urology [facility] [address] [facility], [address] [place] [address] Talib Serna MD [address] [facility] [place] [address] 05/17/2025 10:35 AM EDT Hospital Encounter [facility]PERATING ROOM [address] [place] [address] Talib Serna MD [address] [address] 05/17/2025 10:35 AM EDT - 05/17/2025 12:05 PM EDT Surgery [facility] RO[facility] [address] [place] [address] Talib Serna MD [address] [address] URETEROSCOPY, WITH BIOPSY WITH POSSIBLE R URETERAL STENT EXCHANGE [66305 (CPT )] 06/17/2025 12:00 PM EDT Appointment [facility] [address]nd [place] [address] 06/17/2025 1:30 PM EDT Office Visit Medical Office Building Urology [address] [facility], [address] [place] [address] Talib Serna MD [address] [address] 10/21/2025 11:00 AM EST Office Visit [place] [facility] [address], [address] [place] [address] Mayi Ballard MD [address] [facility] [address] [place] [address] Scheduled Procedures Name Priority Associated [...] documented as of this encounter Care Teams Tobacco Sieve Operator Relationship Specialty Start Date End Date Thiago Gregory APRN [address] [place] [address] PCP - General 03/20/24 Doug Bill RN ```````````````````````CH - PACU - MAJOR, PAV A Registered Nurse 12/23/24 documented as of this encounter
--- OUTSIDE RECORDS SUMMARY | 2025-04-15 15:10 | XMS_ITS | Encounter Summary ---
Author Organization [facility] Address [address] [id number] Care Team Providers Care Powerhouse Mechanic Name Role Phone Thiago Gregory APRN Primary Care Provider +1 [phone] Doug Bill RN Unavailable Unavailable Encounter Details [...] time in the past 12 m [facility], were you homeless or living in a long-term (including now)? No 12/07/2024 AUDIT-C Answer Date [...] drink first t nigel in the morning (EYE-WORKERS COMPENSATION ADMINISTRATOR) to steady your nerves or to get [...] a week 03/16/2025 9:41 AM EDT Renetta Mnan Q2: How many drinks containing alcohol do [...] [facility], [address] [place] [address] Talib Serna MD [address] [address] 05/17/2025 10:35 AM EDT Hospital Encounter [facility]PER[facility] RO[facility] [address] [place] [address] Talib Serna MD [address] [address] 05/17/2025 10:35 AM EDT - 05/17/2025 12:05 PM EDT Surgery [facility] A OPERATING RO[address] [place] [address] Talib Serna MD [id number] [place] [address] URETEROSCOPY, WITH BIOPSY WITH POSSIBLE R URETERAL STENT EXCHANGE [06355 (CPT )] 06/17/2025 12:00 PM EDT Appointment [facility] [address]nd [place] [address] 06/17/2025 1:30 PM EDT Office Visit Medical Office Building Urology [address] [facility], [address] [place] [address] Talib Serna MD [id number] [place] [address] 10/21/2025 11:00 AM EST [facility] Visit [facility] [address] [place] [address] Mayi Ballard MD [address] [facility] [address] [place] [address] Scheduled Procedures Name Priority Associated [...] documented as of this encounter Care Teams Powerhouse Mechanic Relationship Specialty Start Date End Date Thiago Gregory APRN [address] [place] [address] PCP - General 03/20/24 Doug Bill RN ```````````````````````CH - PACU - MAJOR, PAV A Registered Nurse 12/23/24 documented as of this encounter
--- OUTSIDE RECORDS SUMMARY | 2025-04-15 15:10 | XMS_ITS | Encounter Summary ---
Author Organization Healthcare Address [address] [id number] Care Team Providers Care Roll Builder Name Role Phone Thiago Gregory APRN Primary Care Provider +1- [phone] Doug Bill RN Unavailable Unavailable Reason for Visit * Reason Onset Date Comments HCN Clinical Concern/Question 02/12/2025 U/C Results 02/12/2025 Encounter Details Date Type Department Care Team (Late st Contact Info) Description 02/12/2025 Telephone [place] [facility] [address] [place] [address] Talib Serna MD [address] [place] [address] HCN Clinical Concern/Question; U/C Results [...] any time in the past [address] [facility], were you homeless or living in a jail (including now)? No 12/07/2024 CAGE ASSESSMENT Answer [...] drink first t nigel in the morning (EYE-FRAME BUILDER) to steady your nerves or to get [...] optimal time of day to reach caller: [phone] Note: Please do not reply to this message. Follow-up communication and further actions as a result of this message need to be communicated with the patient directly, if the patient is not active onMyChart. If the patient is active on MyChart, they will receive notification of the communication/outcome via [employer]. * Telephone Encounter - Nacho Linda - 02/26/2025 9:58 AM EDT Called and left a message to call the clinic back * Telephone Encounter - Adalgisa Black - 02/26/2025 9:51 AM EDT Clinical Concern/Question Reason for Call: patient is 8 days post surgery and is seeing some bleeding asking if it is normal Best contact number: [phone] (home) Optimal time of day to reach [...] receive notification of the communication/outcome via MyChart. * Telephone Encounter - Wendi Infante - 02/16/2025 8:39 AM EDT Uploaded 02/12/25 Final Urine Culture from [facility] Primary Care * Telephone Encounter - Nacho [...] had a UTI and was seen today [facility] and he did a lab and they will be faxing the results. Best contact number: [phone] (home) Optimal time of day to reach [...] Visit Medical Office Building Urology [address] [facility], [address] [place] [address] Talib Serna MD [address] [address] 05/17/2025 10:35 AM EDT Hospital Encounter [facility]PERATING ROOM [address] [place] [address] Talib Serna MD [address] [address] 05/17/2025 10:35 AM EDT - 05/17/2025 12:05 PM EDT Surgery [facility] [place] [address] Talib Serna MD [address] [address] URETEROSCOPY, WITH BIOPSY WITH POSSIBLE R URETERAL STENT EXCHANGE [30790 (CPT )] 06/17/2025 12:00 PM EDT Appointment [facility] CT [address] [place] [address] 06/17/2025 1:30 PM EDT Office Visit Medical Office Building Urology [address] [facility], [address] [place] [address] Talib Serna MD [address] [place] [address] 10/21/2025 11:00 AM EST Office Visit [place] [facility] [address] [place] [address] Mayi Ballard MD [address] [facility] [address] [place] [address] Scheduled Procedures Name Priority Associated [...] documented as of this encounter Care Teams Roll Builder Relationship Specialty Start Date End Date Thiago Gregory APRN [address] [place] [address] PCP - General 03/20/24 Doug Bill, RN ```````````````````````CH - PACU - MAJOR, PAV A Registered Nurse 12/23/24 documented as of this encounter
--- OUTSIDE RECORDS SUMMARY | 2025-04-15 15:10 | XMS_ITS | Clinical Summary ---
Author Organization [facility] Address [address] [place] [id number] Care Team Providers Care Client Application Support Specialist Name Role Phone Thiago Gregory APRN Primary Care Provider Doug Bill RN Unavailable Unavailable Allergies Active Allergy Reactions Criticality Noted Date Comments Chocolate Dermatitis Low 12/15/2024 Prochlorperazine Nausea Low 04/25/2022 Muscle tightness (neck) Medications methocarbamol (Robaxin) 500 MG tablet Take 1 tablet by mouth 4 times a day for 5 days. 20 tablet 02/21/20 Active Additional Information Patient not taking.Reported on 04/08/2025 tamsulosin (Flomax) 0.4 MG 24 hr capsule Take 1 capsule by mouth 1 time each day with dinner. 60 capsule 02/21/20 25 025 Active oxyCODONE (Roxicodone) 5 MG immediate release tablet Take 1 tablet by mouth every 6 hours as needed for severe pain for up to 5 doses. 5 tablet 02/21/20 Active Additional Information Patient not taking.Reported on 04/08/2025 naloxone (Narcan) 4 mg/0.1 mL nasal spray 1. Give 1 spray in nostril for no/slow breathing or cannot wake after opioid use 2. Call 911 3. Repeat in other nostril if symptoms continue 1 each 02/21/20 Active Additional Information Patient not taking.Reported on 04/08/2025 acetaminophen (Tylenol) 500 MG tablet Take 2 tablets by mouth every 6 hours as needed. Active ibuprofen 200 MG tablet Take 3 tablets by mouth every 6 hours as needed for mild pain. Active lisinopril 20 MG tablet Take 1 tablet by mouth 1 time per week. Active fluconazole (Diflucan) 200 MG tabletIndications :Urinary tract infection without hematuria, site unspecified Take 1 tablet by mouth daily for 14 days. 14 tablet 04/08/20 25 025 Active colchicine (Colcrys) 0.6 MG tablet Take 1 tablet by mouth 2 times a day. 60 tablet 1 04/08/20 Active colchicine (Colcrys) 0.6 MG tablet Take 1 tablet by mouth 2 times a day. 025 Discontinu ed(Reorder ) senna-docusate sodium (Senokot-S) 8.6-50 MG tablet Take 1 tablet by mouth daily. 30 tablet 02/21/20 25 025 Additional Information Patient not taking.Reported on 03/18/2025 phenazopyridine (Pyridium) 200 MG tablet Take 1 tablet by mouth 3 times a day as needed for pain, discomfort or irritation. 20 tablet 02/21/20 25 025 Additional Information Patient not taking.Reported on 03/18/2025 sulfamethoxazole- trimethoprim (Bactrim DS) 800-160 MG tabletIndications :Postoperative surgical complication involving genitourinary system associated with genitourinary procedure, unspecified complication Take 2 tablets by mouth 2 times a day for 11 doses. 22 tablet 03/19/20 25 025 Hospital, Clinic, or Other Facility Administered Medication Ordered Dose Route Frequency Start Date End Date Status triamcinolone acetonide (Kenalog-40) injection 40 mgIndications:Calci um pyrophosphate deposition disease,Primary osteoarthritis of knees, bilateral 40 mg IX Once 04/08/2025 04/08/20 25 Ended triamcinolone acetonide (Kenalog-40) injection 40 mgIndications:Calci um pyrophosphate deposition disease,Primary osteoarthritis of knees, bilateral 40 mg IX Once 04/08/2025 04/08/20 25 Ended lidocaine (Xylocaine) 1 % injection 10 mLIndications:Calci um pyrophosphate deposition disease,Primary osteoarthritis of knees, bilateral 10 mL INFILTRATION Once 04/08/2025 04/08/20 25 Discontinued lidocaine (Xylocaine) 1 % injection 10 mLIndications:Calci um pyrophosphate deposition disease,Primary osteoarthritis of knees, bilateral 10 mL INFILTRATION Once 04/08/2025 04/08/20 Discontinued lidocaine (Xylocaine) 1 % injection 2 mLIndications:Calci um pyrophosphate deposition disease,Primary osteoarthritis of knees, bilateral 2 mL INFILTRATION Once 04/08/2025 04/08/20 Ended lidocaine (Xylocaine) 1 % injection 2 mLIndications:Calci um pyrophosphate deposition disease,Primary osteoarthritis of knees, bilateral 2 mL INFILTRATION Once 04/08/2025 04/08/20 Ended Active Problems Problem Noted Date Diagnosed Date Ureteropelvic junction (UPJ) obstruction, right 02/17/2025 UPJ (ureteropelvic junction) obstruction 025 Acute postoperative abdominal pain 01/01/2025 Ureteral [...] Encounters Date Type Department Care Team Description 04/08/2025 9:10 AM EDT Office Visit [facility] Medicine Specialties [address], [address] [place] [phone] Lianne Yañez, MBBS Calcium pyrophosphate deposition disease (Primary Dx); Primary osteoarthritis of knees, bilateral; Calculus of ureter 04/08/2025 Telephone [facility] Urology [address], [address] [place] [phone] Talib Serna MD 04/08/2025 Orders Only [facility] [address], [address] [place] [phone] Talib Serna MD Urinary tract infection without hematuria, site unspecified (Primary Dx) 04/08/2025 Travel 04/08/2025 Orders Only [facility] Urology [address] [phone] Talib Serna MD Urinary tract infection without hematuria, site unspecified (Primary Dx) 04/08/2025 Telephone [facility] [address] [phone] Talib Serna MD HCN Clinical Concern/Question 03/23/2025 Telephone [facility] Urology [facility] [address] [address] Talib Serna MD 03/17/2025 10:00 PM EDT - 03/18/2025 12:30 AM EDT Surgery [facility] [address] [place] [address] Talib Serna MD URETEROSCOPY, COMPLEX [98711 (CPT )] 03/17/2025 9:37 PM EDT Anesthesia Event [facility] [address] [place] [address] Benito Rosenbaum, DO Ashley, Rick Long MD 03/17/2025 5:05 PM EDT - 03/19/2025 3:33 PM EDT Hospital Encounter [facility] Inpatient [address] [place] [address] Michelle Craig MD Bylund, Jason R, MD Postoperative surgical complication involving genitourinary system associated with genitourinary procedure, unspecified complication (Primary Dx); Ureteropelvic junction (UPJ) obstruction, right; Right flank pain Discharge Disposition: Home or Self Care 03/17/2025 Travel 03/17/2025 Orders Only External Location [address] [place] [address] Provider, External 03/17/2025 Orders Only External Location [address] [place] [address] Provider, External 03/17/2025 Orders Only External Location [address] [place] [address] Provider, External 03/17/2025 Telephone [facility] [address] [address] aTlib Serna MD HCN - Patient Message (Pain after stent removal ) 03/16/2025 9:15 AM EDT Office Visit Medical Office Building Urology [facility] [address] [facility], [address] [place] [address] Talib Serna MD Hydronephrosis of right kidney (Primary Dx) 03/16/[address], [address] [place] [phone] Ariana Clayton, RETAIL DEPARTMENT RESET 03/16/2025 Travel 03/02/2025 Telephone [facility], [address] [place] [phone] Talib Serna MD HCN Clinical Concern/Question 02/20/2025 Travel 02/17/2025 8:15 AM EDT - 02/17/2025 12:40 PM EDT Surgery [facility] [address] [place] [address] Talib Serna MD PYELOPLASTY, ROBOT-ASSISTED, USING DA COLE XI [83279 (CPT )] 02/17/2025 8:11 AM EDT Anesthesia Event [facility] [address] [place] [address] Gordo Pham CRNA Abiri, Brian A, 02/17/2025 5:24 AM EDT - 02/20/2025 3:18 PM EDT Hospital Encounter [facility] H Inpatient [address] [place] [address] Talib Serna MD Hydronephrosis, right Discharge Disposition: Home or Self Care 02/17/2025 Travel 02/16/2025 Telephone [facility], [address] [place] [phone] Talib Serna MD HCN - Patient Message 02/12/2025 Telephone [facility]rology [address], [address] [place] [address] Talib Serna MD HCN Clinical Concern/Question; U/C Results 01/15/2025 Telephone [facility]rology [address], [address] [place] [address] Talib Serna MD from Last 3 Months Immunizations Immunization Administration [...] in the past 12 m [facility], were you homeless or living in a usp (including now)? No 12/07/2024 AUDIT-C Answer Date [...] drink first t nigel in the morning (EYE-GRADES 6 THROUGH 8 TEACHER) to steady your nerves or to get rid of a hangover? 0 03/17/2025 CAGE Questionnaire Score 0 025 Utilities Answer Date Recorded In the past 12 months has th e electric, gas, oil, or water [employer] threatened to shut off services in your [...] Mass Index 22.14 04/08/2025 9:43 AM EDT Plan of Treatment Upcoming Encounters Date Type Department Care Team (Latest Contact Info) Description 04/29/2025 9:00 AM EDT Office Visit Medical Office Building Urology [address] [facility], [address] [place] [address] Talib Serna MD [address] [phone] 05/17/2025 10:35 AM EDT Hospital Encounter [facility] [address] [place] [id number] Talib Serna MD [address] [phone] 05/17/2025 10:35 AM EDT - 05/17/2025 12:05 PM EDT Surgery [facility] [address] [place] [address] Talib Serna MD [address] [place] [address] URETEROSCOPY, WITH BIOPSY WITH POSSIBLE R URETERAL STENT EXCHANGE [08804 (CPT )] 06/17/2025 12:00 PM EDT Appointment [facility] [address] [place] [phone] 06/17/2025 1:30 PM EDT Office Visit Medical Office Building Urology [address] [facility], [address] [place] [address] Talib Serna MD [address] [place] [address] 10/21/2025 11:00 AM EST Office Visit [facility] [address], [address] [place] [address] Mayi Ballard MD [address] [facility] [address] [place] [address] Scheduled Procedures Name Priority Associated Diagnoses Date/Ti me URETEROSCOPY, WITH BIOPSY Ureteropelvic junction (UPJ) obstruction, right 05/17/2025 10:35 AM EDT Health Maintenance Due Date Last Done Comments [facility]-Medicare Annual Wellness (AWV) 1955 [facility]-Infant/Child/Adol SDOH Screenings 1955 [facility]-DTaP,Tdap,and Td Vaccines (1 - Tdap) 1973 CT Colonography 1999 Colonoscopy 1999 FIT-DNA 1999 FIT 1999 FOBT 1999 Sigmoidoscopy 1999 [facility]-Colorectal Cancer Screening 1999 [facility]-Pneumococcal Vaccine: 50+ Years (1 of 1 - PCV) 01/26/2004 [facility]-Abdominal Aortic Aneurysm (AAA) Screening 2019 [facility]-Zoster Vaccines (2 of 2) 04/01/2020 02/05/2020 [id number] Vaccine ( season) 2025 08/19/2024, 08/09/2023, 07/23/2022, Additional history exists [facility]-Influenza Vaccine (#1) 05/31/202508/19, 08/09/2023, 07/23/2022, Additional history exists [facility]- SDOH Screenings 06/09/2025 [facility]-Adult SDOH Screenings 06/09/2025 12/07/2024 [facility]-Depression Screening 04/08/2026 04/08/2025, 03/30 [facility]-Hepatitis C Screening Completed 04/10/2024, 08/2024 [facility]-RSV Vaccine: 60+ Years or Completed 08/19/2024 [...] [employer] Implanted Type Area Healthcare Prof Device Identifier Shelf Expiration Date Model / Serial / Lot Hip Hip Bilateral: Hip Stent Ureteral Tria [employer] Monofilament 7f/24cm - [id number] Implanted:Qty: 1 on 12/22/2024 by Talib Serna MD at [facility] Stent Right: Ureter [id number] 07/23/2027 [id number] / / [id number] Stent Ureteral Double Pigtail Pos 6fr 22cm - [id number] - [id number] Implanted:Qty: 1 on 02/17/2025 by Talib Serna MD at [facility] Stent [id number] 07/01/2025 [id number] / [id number] / [id number] Stent Ureteral Tria [employer] Monofilament 7f/22cm - [id number] Implanted:Qty: 1 on 03/17/2025 by Talib Serna MD at [facility] Stent Right: Ureter [employer]-[id number] 10/30/2026 [id number] Procedures Procedure Name Priority Date/Time Associated Diagnosis Comments VITAMIN D 25 HYDROXY Routine 04/08/2025 12:14 PM EDT Calcium pyrophosphate deposition disease Disorder of cartilage, unspecified VITAMIN D, 1, 25-DIHYDROXY Routine 04/08/2025 12:14 PM EDT Calcium pyrophosphate deposition disease C-REACTIVE PROTEIN, PLASMA Routine 04/08/2025 12:14 PM EDT Calcium pyrophosphate deposition disease SEDIMENTATION RATE, AUTOMATED Routine 04/08/2025 12:14 PM EDT Calcium pyrophosphate deposition disease IONIZED CALCIUM, SERUM Routine 12:14 PM EDT Calcium pyrophosphate deposition disease Calculus of ureter PTH INTACT TOTAL Routine 04/08/2025 12:1 4 PM EDT Calcium pyrophosphate deposition disease Calculus of ureter URIC ACID, PLASMA Routine 04/08/2025 12: 14 PM EDT Calcium pyrophosphate deposition disease Calculus of ureter PTH PANEL 1 Routine 04/08/2025 12:14 PM EDT Calcium pyrophosphate deposition disease Calculus of ureter LARGE JOINT ARTHROCENTESIS Routine 04/08/2025 9:10 AM EDT Primary osteoarthritis of knees, bilateral URINALYSIS MICROSCOPIC FOR UA REFLEX Routine 04/08/2025 8:58 AM EDT Urinary tract infection without hematuria, site unspecified URINALYSIS WITH REFLEX MICROSCOPIC Routine 04/08/2025 8:58 AM EDT Urinary tract infection without hematuria, site unspecified URINE CULTURE Routine 04/08/2025 8:58 AM EDT Urinary tract infection without hematuria, site unspecified BASIC METABOLIC PANEL, PLASMA Routine 03/18/2025 4:09 AM EDT CBC W/O DIFFERENTIAL Routine 03/18/2025 4:09 AM EDT FL LESS THAN 1 HOUR (NON-REPORTABLE) Routine 03/17/2025 10:40 PM EDT URINE CULTURE Routine 03/17/2025 10:09 PM EDT Ureteropelvic junction (UPJ) obstruction, right PB ANESTHESIA PLACEHOLDER Routine 03/17/2025 9:42 PM EDT WA AN ELECTIVE ENDOTRACHEAL AIRWAY Routine 03/17/2025 9:42 PM EDT WA CYSTO/URETERO/PYELOSCO PY, DX 03/17/2025 9:21 PM EDT Ureteropelvic junction (UPJ) obstruction, right SEND OMA MESSAGE STAT 03/17/2025 6: 28 PM EDT URINALYSIS MICROSCOPIC FOR UA REFLEX STAT 03/17/2025 6:28 PM EDT URINE BARLOW PANEL STAT 03/17/2025 6:28 PM EDT URINALYSIS WITH REFLEX MICROSCOPIC STAT 03/17/2025 6:28 PM EDT URINALYSIS WITH REFLEX MICROSCOPIC AND CULTURE STAT 03/17/2025 6:28 PM EDT COMPREHENSIVE METABOLIC PANEL, PLASMA STAT 03/17/2025 6:28 PM EDT CBC WITH AUTO DIFFERENTIAL STAT 03/17/2025 6:28 PM EDT URINE CULTURE STAT 03/17/2025 6:[address] MSK OUTSIDE IMAGES 03/17/2025 2:[address] OUTSIDE IMAGES 03/17/2025 1:[address] MSK OUTSIDE IMAGES 03/17/2025 1:43 PM EDT URO CYSTO SUPPLIES Routine 03/16/2025 9: 15 AM EDT Hydronephrosis of right kidney WA CYSTOSCOPY,REMV CALCULUS,SIMPLE Routine 03/16/2025 9:15 AM EDT [...] ANESTHESIA PLACEHOLDER Routine 02/17/2025 8:19 AM EDT WA AN ELECTIVE ENDOTRACHEAL AIRWAY Routine 02/17/2025 8:19 AM EDT WA LAP,PYELOPLASTY 02/17/2025 8: 05 AM EDT Hydronephrosis, right TYPE AND SCREEN STAT 02/17/2025 6:48 AM EDT HEPATITIS C ANTIBODY W/REFLEX TO HCV QUANT PCR Routine 04/10/2024 11:20 AM EDT High risk medication use from Last 3 Months or Most Recently Relevant to Health Maintenance Results * Ionized calcium, serum (04/08/2025 12:14 PM EDT) Ionized Calcium, Serum 5.0 4.6 - 5.3 mg/dL LAB HEMATOLOGY METHOD 04/08/2025 2:05 PM EDT [facility] Blood Venous blood specimen / Unknown Venipuncture / Unknown 04/08/2025 12:14 PM EDT 04/08/2025 12:15 PM EDT us Nik Winter MD LAB BLOOD ORDERABLES Final Result Performing Organization Address City/[facility]/ZIP Co de Phone Number [facility] [address] [place] [address] * Vitamin D 1,25 dihydroxy (04/08/2025 12:14 PM EDT) VITAMIN D, 1, 25-DIHYDROXY 45.6 19.9 - 79.3 pg/mL 04/09/2025 6:48 PM EDT [facility] Blood Venous blood specimen / Unknown Venipuncture / Unknown 04/08/2025 12:14 PM EDT 04/08/2025 12:15 PM EDT us Gladis Bain MD LAB BLOOD ORDERABLES Final Re sult [facility] [address] [place] [address] * Vitamin D 25 Hydroxy (04/08/2025 12:14 PM EDT) Vitamin D 25 Hydroxy 24.3 20.0 - 80.0 ng/mL 04/08/2025 2:49 PM EDT [facility] Blood Venous blood specimen / Unknown Venipuncture / Unknown 04/08/2025 12:14 PM EDT 04/08/2025 12:15 PM EDT Narrative [facility] - 04/08/2025 2:49 PM EDT Testing performed on [employer], standardized against NIST SRM 2972. When testing samples from patients whose predominant form of vitamin D is vitamin D2, such as patients receiving vitamin D2 supplementation, results that are subtherapeutic should be confirmed with another method, such as LC-MS/MS, before being used for patient management. Vitamin D, 25-Hydroxy reference range, age 18 years and up: Deficiency: <12 ng/mL Insufficiency: 12 to 19 ng/mL Sufficiency: 20 to 80 ng/mL Possible toxicity: >100 ng/mL Gladis Bain MD LAB BLOOD ORDERABLES Final Re sult Performing Organization Address City/[facility]/ZIP Co de Phone Number [facility] [address] [place] [address] * (ABNORMAL) Sedimentation Rate, Automated (04/08/2025 12:14 PM EDT) Sedimentation Rate 38(H) <20 mm/hr 2024 1:14 PM EDT [facility] Blood Venous blood specimen / Unknown Venipuncture / Unknown 04/08/2025 12:14 PM EDT 04/08/2025 12:15 PM EDT Gladis Bain MD LAB BLOOD ORDERABLES Final Re sult [facility] [address] [place] [address] * C-reactive protein (04/08/2025 12:14 PM EDT) CRP, Plasma <3.0 <=8.0 mg/L 04/08/2025 2:22 PM EDT [facility] Blood Venous blood specimen / Unknown Venipuncture / Unknown 04/08/2025 12:14 PM EDT 04/08/2025 12:15 PM EDT Narrative [facility] - 04/08/2025 2:22 PM EDT This CRP test is appropriate for assessment of infection, systemic inflammation and/or tissue injury. To assess cardiovascular disease risk order high sensitivity CRP (CRPH). us Gladis Bain MD LAB BLOOD ORDERABLES Final Re sult [facility] [address] [place] [address] * Uric acid (04/08/2025 12:14 PM EDT) Uric Acid, Plasma 6.4 3.7 - 8.0 mg/dL 04/08/2025 2:22 PM EDT [facility] Blood Venous blood specimen / Unknown Venipuncture / Unknown 04/08/2025 12:14 PM EDT 04/08/2025 12:15 PM EDT us Nik Winter MD LAB BLOOD ORDERABLES Final Result Performing Organization Address [facility]/ZIP Co de Phone Number [facility] [address] [place] [address] * PTH Intact Total (04/08/2025 12:14 PM EDT) PTH Intact Total 26 9 - 77 pg/mL 04/08/2025 2:14 PM EDT [facility] Blood Venous blood specimen / Unknown Venipuncture / Unknown 04/08/2025 12:14 PM EDT 04/08/2025 12:15 PM EDT Narrative [facility] - 04/08/2025 2:14 PM EDT Assay performed by immunoassay at the [facility]. Performed on [employer] chemiluminescent immunoassay, tractable to the World Health Organization's first international standard for PTH from the NIBS, Code 79/500. Results obtained from different test methods or kits cannot be used interchangeably. us Nik Winter MD LAB BLOOD ORDERABLES Final Result [facility] [address] [place] [address] * Urinalysis Microscopic Examination (04/08/2025 8:58 AM EDT) Only the most recent of2 resultswithin the time period is included. Urine Urine specimen obtained by clean catch procedure / Unknown Non-blood Collection / Unknown 04/08/2025 8:58 AM EDT 04/08/2025 8:59 AM EDT us Talib Serna MD LAB URINE ORDERABLES Final Res ult Performing Organization Address [facility] Co de Phone Number [facility] [address] [place] [address] * (ABNORMAL) UA w/ Micro (Culture NOT Included) - Lab Collect (04/08/2025 8:58 AM EDT) Only the most recent of2 resultswithin the time period is included. Color, Urine Yellow LAB URINALYSIS - AUTOMATED METHOD 04/08/2025 10:00 AM EDT [facility] Clarity, Urine Cloudy LAB URINALYSIS - AUTOMATED METHOD 04/08/2025 10:00 AM EDT [facility] Spec [place], Urine 1.017 1.005 - 1.030 LAB URINALYSIS - AUTOMATED METHOD 04/08/2025 10:00 AM EDT [facility] pH, Urine 6.0 5.0 - 8.0 LAB URINALYSIS - AUTOMATED METHOD 04/08/2025 10:00 AM EDT [facility] Protein, Urine >=300(A) Negative mg/dL LAB URINALYSIS - AUTOMATED METHOD 04/08/2025 10:00 AM EDT [facility] Glucose, Urine Negative Negative mg/dL LAB URINALYSIS - AUTOMATED METHOD 04/08/2025 10:00 AM EDT [facility] Ketones, Urine 15(A) Negative mg/dL LAB URINALYSIS - AUTOMATED METHOD 04/08/2025 10:00 AM EDT [facility] Blood, Urine Small(A) Negative LAB URINALYSIS - AUTOMATED METHOD 04/08/2025 10:00 AM EDT [facility] Bilirubin, Urine Negative Negative LAB URINALYSIS - AUTOMATED METHOD 04/08/2025 10:00 AM EDT [facility] Urobilinogen, Urine 1.0 0.2 to 1.0 mg/dL LAB URINALYSIS - AUTOMATED METHOD 04/08/2025 10:00 AM EDT [facility] Leukocytes, Urine Large(A) Negative LAB URINALYSIS - AUTOMATED METHOD 04/08/2025 10:00 AM EDT [facility] Nitrite, Urine Negative Negative LAB URINALYSIS - AUTOMATED METHOD 04/08/2025 10:00 AM EDT [facility] RBC, Urine 11 - 15(A) 0 to 3 /HPF LAB URINALYSIS - AUTOMATED METHOD 04/08/2025 10:00 AM EDT [facility] WBC, Urine >50(A) 0 to 5 /HPF LAB URINALYSIS - AUTOMATED METHOD 04/08/2025 10:00 AM EDT [facility] Squamous Epithelial Cells 0 - 2 0 to 5 /HPF LAB URINALYSIS - AUTOMATED METHOD 04/08/2025 10:00 AM EDT [facility] Hyaline Casts 0 - 2 0 to 5 /LPF LAB URINALYSIS - AUTOMATED METHOD 04/08/2025 10:00 AM EDT [facility] Bacteria, Urine Negative Negative LAB URINALYSIS - AUTOMATED METHOD 04/08/2025 10:00 AM EDT [facility] Renal Tubular Cells Present Absent LAB URINALYSIS - AUTOMATED METHOD 04/08/2025 10:00 AM EDT [facility] Yeast (Budding and/or Pseudohyphae) Present(A) Absent LAB URINALYSIS - AUTOMATED METHOD 04/08/2025 10:00 AM EDT [facility] Urine Urine specimen obtained by clean catch procedure / Unknown Non-blood Collection / Unknown 04/08/2025 8:58 AM EDT 04/08/2025 8:59 AM EDT us Talib Serna MD LAB URINE ORDERABLES Final Res ult [facility] [address] [place] [address] * (ABNORMAL) Urine Culture - Lab Collect (04/08/2025 8:58 AM EDT) Only the most recent of4 resultswithin the time period is included. Culture 10,000 - 100,000 CFU/mL Lucie albicans(A) 04/10/2025 1:02 PM EDT [facility] Comment: This isolate has been identified using the FDA Approved [employer] System Edited result: Previously reported as Yeast on 04/10/2025 at 0514 EDT. Urine Urine specimen obtained by clean catch procedure / Unknown Non-blood Collection / Unknown 04/08/2025 8:58 AM EDT 04/08/2025 8:59 AM EDT us Talib Serna MD LAB MICROBIOLOGY - GENERAL ORD ERABLES Final Result [facility] [address] [place] [address] * (ABNORMAL) Hemogram (CBC) (03/18/2025 4:09 AM EDT) Only the most recent of5 resultswithin the time period is included. WBC Count 17.56(H) 3.70 - 10.30 10*3/uL LAB HEMATOLOGY METHOD 03/18/2025 4:38 AM EDT [facility] RBC Count 4.47(L) 4.60 - 6.10 10*6/uL LAB HEMATOLOGY METHOD 03/18/2025 4:38 AM EDT [facility] HGB 13.4(L) 13.7 - 17.5 g/dL LAB HEMATOLOGY METHOD 03/18/2025 4:38 AM EDT [facility] HCT 40.3 40.0 - 51.0 % LAB HEMATOLOGY METHOD 03/18/2025 4:38 AM EDT [facility] Platelet Count 201 155 - 369 10*3/uL LAB HEMATOLOGY METHOD 03/18/2025 4:38 AM EDT [facility] MCV 90 79 - 98 fL LAB HEMATOLOGY METHOD 03/18/2025 4:38 AM EDT [facility] MCH 30.0 26.0 - 32.0 pg LAB HEMATOLOGY METHOD 03/18/2025 4:38 AM EDT [facility] MCHC 33.3 30.7 - 35.5 g/dL LAB HEMATOLOGY METHOD 03/18/2025 4:38 AM EDT [facility] RDW 13.2 11.5 - 14.5 % LAB HEMATOLOGY METHOD 03/18/2025 4:38 AM EDT [facility] MPV 10.8 8.8 - 12.5 fL LAB HEMATOLOGY METHOD 03/18/2025 4:38 AM EDT [facility] [facility] nRBC 0.0 <=0.0 per 100 WBCs LAB HEMATOLOGY METHOD 03/18/2025 4:38 AM EDT [facility] Blood Venous blood specimen / Unknown Venipuncture / Unknown 03/18/2025 4:09 AM EDT 03/18/2025 4:27 AM EDT us Talib Serna MD LAB BLOOD ORDERABLES Final Res ult [facility] [address] [place] [address] * (ABNORMAL) Basic metabolic panel (03/18/2025 4:09 AM EDT) Only the most recent of5 resultswithin the time period is included. Glucose, Plasma 139(H) 74 - 99 mg/dL 03/18/2025 4:56 AM EDT [facility] BUN, Plasma 9 8 - 23 mg/dL 03/18/2025 4:56 AM EDT [facility] Creatinine, Plasma 0.68(L) 0.70 - 1.20 mg/dL 03/18/2025 4:56 AM EDT [facility] BUN/Creatinine Ratio 13 03/18/2025 4:56 AM EDT [facility] Sodium, Plasma 138 136 - 145 mmol/L 03/18/2025 4:56 AM EDT [facility] Potassium, Plasma 4.6 3.6 - 4.9 mmol/L 03/18/2025 4:56 AM EDT [facility] Chloride, Plasma 104 97 - 107 mmol/L 03/18/2025 4:56 AM EDT [facility] CO2, Plasma 24 22 - 29 mmol/L 03/18/2025 4:56 AM EDT [facility] Anion Gap 10 6 - 16 mmol/L 03/18/2025 4:56 AM EDT [facility] Total Calcium, Plasma 9.4 8.9 - 10.2 mg/dL 03/18/2025 4:56 AM EDT [facility] eGFRcr 99.4 mL/min/1.7 3m*2 03/18/2025 4:56 AM EDT [facility] Comment:Reported eGFRcr in m L/min/1.73m2 is based the CKD-EPI 2020 equation that does not use a race coefficient. Blood Venous blood specimen / Unknown Venipuncture / Unknown 03/18/2025 4:09 AM EDT 03/18/2025 4:27 AM EDT us Talib Serna MD LAB BLOOD ORDERABLES Final Res ult Performing Organization Address [facility] Co de Phone Number [facility] [address] [place] [address] * FL Less than 1 Hour Intraoperative (03/17/2025 10:40 PM EDT) Narrative IMAGING - 03/17/2025 10:40 PM EDT Images were obtained for surgical purposes. See Talib Serna's surgical note in the patient's chart for the findings. us Talib Serna MD IMG FLUOROSCOPY PROCEDURES Fin al Result Performing Organization Address [facility] Co de Phone Number IMAGING * WA AN ELECTIVE ENDOTRACHEAL AIRWAY, PB ANESTHESIA PLACEHOLDER [...] Rosenbaum DO ANESTHESIA ORDERABLES Final Re sult * SEND OMA MESSAGE (03/17/2025 6:28 PM EDT) Urine Urine specimen obtained by clean catch procedure / Unknown Non-blood Collection / Unknown 03/17/2025 6:28 PM EDT 03/17/2025 7:12 PM EDT Michelle Craig MD LAB URINE ORDERABLES Final Re sult Performing Organization Address City/[facility] Co de Phone Number [facility] [address] [place] [address] * Urine Barlow Panel (03/17/2025 6:28 PM EDT) Pathologist [facility] Extra Sent for Culture 03/17/2025 9:02 PM EDT [facility] Urine Urine specimen obtained by clean catch procedure / Unknown Non-blood Collection / Unknown 03/17/2025 6:28 PM EDT 03/17/2025 7:12 PM EDT Michelle Craig MD LAB URINE ORDERABLES Final Re sult Performing Organization Address City/[facility]/ZIP Co de Phone Number [facility] [address] [place] [address] * (ABNORMAL) CBC w/diff (03/17/2025 6:28 PM EDT) WBC Count 15.45(H) 3.70 - 10.30 10*3/uL LAB HEMATOLOGY METHOD 03/17/2025 6:48 PM EDT [facility] RBC Count 4.48(L) 4.60 - 6.10 10*6/uL LAB HEMATOLOGY METHOD 03/17/2025 6:48 PM EDT [facility] HGB 13.5(L) 13.7 - 17.5 g/dL LAB HEMATOLOGY METHOD 03/17/2025 6:48 PM EDT [facility] HCT 39.9(L) 40.0 - 51.0 % LAB HEMATOLOGY METHOD 03/17/2025 6:48 PM EDT [facility] Platelet Count 179 155 - 369 10*3/uL LAB HEMATOLOGY METHOD 03/17/2025 6:48 PM EDT [facility] MCV 89 79 - 98 fL LAB HEMATOLOGY METHOD 03/17/2025 6:48 PM EDT [facility] MCH 30.1 26.0 - 32.0 pg LAB HEMATOLOGY METHOD 03/17/2025 6:48 PM EDT [facility] MCHC 33.8 30.7 - 35.5 g/dL LAB HEMATOLOGY METHOD 03/17/2025 6:48 PM EDT [facility] RDW 13.2 11.5 - 14.5 % LAB HEMATOLOGY METHOD 03/17/2025 6:48 PM EDT [facility] MPV 11.1 8.8 - 12.5 fL LAB HEMATOLOGY METHOD 03/17/2025 6:48 PM EDT [facility] nRBC 0.0 <=0.0 per 100 WBCs LAB HEMATOLOGY METHOD 03/17/2025 6:48 PM EDT [facility] Differential Type Automated LAB HEMATOLOGY METHOD 03/17/2025 6:48 PM EDT [facility] Neutrophils % 77 % LAB HEMATOLOGY METHOD 03/17/2025 6:48 PM EDT [facility] Lymphocytes % 11 % LAB HEMATOLOGY METHOD 03/17/2025 6:48 PM EDT [facility] Monocytes % 10 % LAB HEMATOLOGY METHOD 03/17/2025 6:48 PM EDT [facility] Eosinophils % 1 % LAB HEMATOLOGY METHOD 03/17/2025 6:48 PM EDT [facility] Basophils % 0 % LAB HEMATOLOGY METHOD 03/17/2025 6:48 PM EDT [facility] Immature Granulocytes % 1 % LAB HEMATOLOGY METHOD 03/17/2025 6:48 PM EDT [facility] Neutrophils Absolute 11.98(H) 1.60 - 6.10 10*3/uL LAB HEMATOLOGY METHOD 03/17/2025 6:48 PM EDT [facility] Lymphocytes Absolute 1.64 1.20 - 3.90 10*3/uL LAB HEMATOLOGY METHOD 03/17/2025 6:48 PM EDT [facility] Monocytes Absolute 1.57(H) 0.30 - 0.90 10*3/uL LAB HEMATOLOGY METHOD 03/17/2025 6:48 PM EDT [facility] Eosinophils Absolute 0.15 0.00 - 0.50 10*3/uL LAB HEMATOLOGY METHOD 03/17/2025 6:48 PM EDT [facility] Basophils Absolute 0.03 0.00 - 0.10 10*3/uL LAB HEMATOLOGY METHOD 03/17/2025 6:48 PM EDT [facility] Immature Granulocytes Absolute 0.08(H) 0.00 - 0.06 10*3/uL LAB HEMATOLOGY METHOD 03/17/2025 6:48 PM EDT [facility] Blood Venous blood specimen / Unknown Venipuncture / Unknown 03/17/2025 6:28 PM EDT 03/17/2025 6:43 PM EDT Narrative [facility] - 03/17/2025 6:48 PM EDT Therapeutic decision making should be based on absolute values, rather than percentages. us Michelle Craig MD LAB BLOOD ORDERABLES Final Re sult [facility] [address] [place] [address] * (ABNORMAL) CMP (03/17/2025 6:28 PM EDT) Glucose, Plasma 107(H) 74 - 99 mg/dL 03/17/2025 7:07 PM EDT [facility] BUN, Plasma 11 8 - 23 mg/dL 03/17/2025 7:07 PM EDT [facility] Creatinine, Plasma 0.75 0.70 - 1.20 mg/dL 03/17/2025 7:07 PM EDT [facility] BUN/Creatinine Ratio 15 03/17/2025 7:07 PM EDT [facility] Sodium, Plasma 137 136 - 145 mmol/L 03/17/2025 7:07 PM EDT [facility] Potassium, Plasma 4.1 3.6 - 4.9 mmol/L 03/17/2025 7:07 PM EDT [facility] Chloride, Plasma 102 97 - 107 mmol/L 03/17/2025 7:07 PM EDT [facility] CO2, Plasma 23 22 - 29 mmol/L 03/17/2025 7:07 PM EDT [facility] Anion Gap 12 6 - 16 mmol/L 03/17/2025 7:07 PM EDT [facility] Total Calcium, Plasma 9.0 8.9 - 10.2 mg/dL 03/17/2025 7:07 PM EDT [facility] Total Protein 6.9 6.3 - 7.9 g/dL 03/17/2025 7:07 PM EDT [facility] Albumin, Plasma 3.8 3.5 - 5.2 g/dL 03/17/2025 7:07 PM EDT [facility] AST, Plasma 14 10 - 50 U/L 03/17/2025 7:07 PM EDT [facility] ALT, Plasma 13 10 - 50 U/L 03/17/2025 7:07 PM EDT [facility] Alkaline Phosphatase, Plasma 66 40 - 115 U/L 03/17/2025 7:07 PM EDT [facility] Total Bilirubin, Plasma 0.7 0.2 - 1.1 mg/dL 03/17/2025 7:07 PM EDT [facility] eGFRcr 96.5 mL/min/1.7 3m*2 03/17/2025 7:07 PM EDT [facility] Comment:Reported eGFRcr in m L/min/1.73m2 is based the CKD-EPI 2020 equation that does not use a race coefficient. Blood Venous blood specimen / Unknown Venipuncture / Unknown 03/17/2025 6:28 PM EDT 03/17/2025 6:43 PM EDT Michelle Craig MD LAB BLOOD ORDERABLES Final Re sult [facility] [address] [place] [address] * CT MSK OUTSIDE IMAGES (03/17/2025 2:28 PM EDT) Only the most recent of2 resultswithin the time period is included. Anatomical Region Laterality Modality Computed Tomogra phy 03/17/2025 2:28 PM EDT us External Provider IMG CT PROCEDURES Final Result * CT OUTSIDE IMAGES (03/17/2025 1:43 PM EDT) Anatomical Region Laterality Modality Computed Tomogra phy 03/17/2025 1:43 PM EDT us External Provider IMG CT PROCEDURES Final Result * WA CYSTOSCOPY,REMV CALCULUS,SIMPLE, URO CYSTO SUPPLIES (03/16/2025 9:15 [...] Mild left basilar atelectasis. Procedure Note Juanis Winhcester DO - 02/20/2025 CLINICAL INDICATION: examine possible [...] following split bolus administration of IV contrast, [id number], 150 mL. Reformatted images in the coronal [...] MD IMG CT PROCEDURES Final Result * Surgical Pathology Exam (02/17/2025 1:42 PM EDT) Case Report Surgical Pathology Case: [id number] Authorizing Provider: Talib Serna MD Collected: 02/17/2025 1342 Ordering Location: [facility] Received: 02/17/2025 1427 Pathologist: Lesia Cole MD Specimen: Other (specify site), right proximal ureter 02/19/2025 11:07 AM EDT [facility] Final Diagnosis A. 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 02/19/2025 11:07 AM EDT [facility] at 1107 EDT Clinical Information hydronephrosis of right kidney 02/19/2025 11:07 AM EDT [facility] Gross Description A. RIGHT PROXIMAL URETER Received in formalin labeled right proximal ureter are multiple pieces of pink-desir rubbery tissue roughened with cauterization measuring 2.3 x 2.0 x 0.7 cm in aggregate. Entirely submitted in cassette A1. Cold Time: <1m Iveth Ramírez 02/19/2025 11:07 AM EDT [facility] Note: A resident was involved in the service. I attest I examined the relevant preparations for the specimens and confirmed the diagnosis or interpretation. 02/19/2025 11:07 AM EDT [facility] Tissue Topography unknown / Unknown 02/17/2025 1:42 PM EDT 02/17/2025 2:27 PM EDT Comment:Pre-op diagnosis: hydronephrosis of right kidney us Talib Serna MD LAB PATHOLOGY ORDERABLES Final Result [facility] [address] [place] [address] * Peripheral IV (02/17/2025 8:20 AM EDT) Narrative Ankit, Gordo B, ASSEMBLY MANAGER - 02/17/2025 8:20 AM EDT Gordo Pham CRNA 02/17/2025 9:08 AM Peripheral IV Date/Time: 02/17/2025 8:20 AM Inserted by: Gordo Pham CRNA Placement Needle size: 16 G Location: forearm Local anesthetic: none Site prep: alcohol Technique: anatomical landmarks Attempts: 1 us Balaji Jo MD ANESTHESIA ORDERABLES Final R esult * WA AN ELECTIVE ENDOTRACHEAL AIRWAY, PB ANESTHESIA PLACEHOLDER (02/17/2025 8:19 AM EDT) Narrative Gordo Pham CRNA - 02/17/2025 8:19 AM EDT Gordo Pham CRNA 02/17/2025 9:07 AM Airway Date/Time: 02/17/2025 8:19 AM Reason: elective Airway not difficult General Information and Staff Patient location during procedure: OR ASSEMBLY MANAGER: Gordo Pham CRNA Performed: BETZAIDA Patient Condition [...] TEST ORDERABLES Final Result Performing Organization Address [facility] Co de Phone Number BLOOD BANK [address] * (ABNORMAL) Hepatitis C Antibody (04/10/2024 11:20 AM EDT) Hepatitis C Antibody Positive( A) Negative 04/10/2024 2:14 PM EDT [facility] Comment:This specimen is aleksandr ng sent for confirmation by RT-PCR. Blood Venous blood specimen / Unknown Venipuncture / Unknown 04/10/2024 11:20 AM EDT 04/10/2024 11:21 AM EDT Ryne Rodriguez MD LAB BLOOD ORDERABLES Fi nal Result Performing Organization Address City/[facility] de Phone Number HEALTH[facility]ARE LAB [address] [place] [address] from Last 3 Months or Most Recently Relevant to Health Maintenance Additional Health Concerns Active Problems Noted Date Diagnosed Date Autogenerated Problem 03/23/2025 Insurance MEDICARE [facility] [id number] Advance Directives * Full Code (Latest Code Status on File) Date Activated Date Inactivated Comments 03/17/2025 6:27 PM 03/19/2025 5:38 PM Question Answer Comments I have reviewed the capacity from the link above and, if needed, have updated to appropriate status: Yes * Full Code Date Activated Date Inactivated Comments 01/01/2025 7:54 AM 01/02/2025 3:26 PM * Full Code Date Activated Date Inactivated Comments 12/22/2024 12:00 PM 12/25/2024 8:36 PM * Full Code Date Activated Date Inactivated Comments 12/04/2024 10:40 PM 12/09/2024 3:39 PM Question Answer Comments Patient has decision-making capacity? Yes Care Teams Client Application Support Specialist Relationship Specialty Start Date End Date Thiago Gregory APRN [address] [place] [address] PCP - General 03/20/24 Doug Bill, RN ```````````````````````CH - PACU - MAJOR, [facility] A Registered Nurse 12/23/24
--- OUTSIDE RECORDS SUMMARY | 2025-04-15 15:10 | XMS_ITS | Encounter Summary ---
Author Organization Healthcare Address [address] [id number] Care Team Providers Care Manager Change Name Role Phone Thiago Gregory APRN Primary Care Provider [phone] Doug Bill RN Unavailable Unavailable Reason for Visit * Reason Onset Date Comments HCN Clinical Concern/Question 03/02/2025 Encounter Details Date Type Department Care Team (Late st Contact Info) Description 03/02/2025 Telephone [place] [facility] [address], [address] [place] [address] Talib Serna MD [address] [place] [address] HCN Clinical Concern/Question Social History [...] drink first t nigel in the morning (EYE-SENIOR CLINICAL RESEARCH SCIENTIST) to steady your nerves or to get [...] encounter Miscellaneous Notes * Telephone Encounter - IsaacsSilva - 03/02/2025 10:59 AM EDT Clinical Concern/Question Reason for Call: pt has appt 03/[address] serna for stent removal/cysto... that is the only day that will not work for him . He needs to rs to another day that week or thenext week... whatever is appropriate please/ Best contact number: [phone] (mobile) Optimal time of day to reach caller: ANYTIME Additional comments/information from caller: None Note: Please do not reply to this message. Follow-up communication and further actions as a result of this message need to be communicated with the patient directly, if the patient is not active onMyChart. If the patient is active on MyChart, they will receive notification of the communication/outcome via enModus. documented in this encounter Plan of Treatment Upcoming Encounters Date Type Department Care Team (Latest Contact Info) Description 04/29/2025 9:00 AM EDT Office Visit Medical Office Building Urology [facility] [address] [facility], [address] [place] [address] Talib Serna MD [address] [address] 05/17/2025 10:35 AM EDT Hospital Encounter [facility] [address] [place] [address] Talib Serna MD [address] [address] 05/17/2025 10:35 AM EDT - 05/17/2025 12:05 PM EDT Surgery [facility] [address] [place] [address] Talib Serna MD [address] [facility] [address] [place] [address] URETEROSCOPY, WITH BIOPSY WITH POSSIBLE R URETERAL STENT EXCHANGE [08925 (CPT )] 06/17/2025 12:00 PM EDT Appointment [facility] [address] [place] [address] 06/17/2025 1:30 PM EDT Office Visit Medical Office Building Urology [address] [facility], [address] [place] [address] Talib Serna MD [address] [facility] [address] [place] [address] 10/21/2025 11:00 AM EST Office Visit [place] [facility] [address] [place] [address] Mayi Ballard MD [address] [facility] [address] [place] [address] Scheduled Procedures Name Priority Associated [...] documented as of this encounter Care Teams Manager Change Relationship Specialty Start Date End Date Thiago Gregory APRN [address] [place] [id number] PCP - General 03/20/24 Doug Bill RN ```````````````````````CH - PACU - MAJOR, PAV A Registered Nurse 12/23/24 documented as of this encounter
--- OUTSIDE RECORDS SUMMARY | 2025-04-15 15:10 | XMS_ITS | Encounter Summary ---
Author Organization Healthcare Address [address] [id number] Care Team Providers Care Chief Learning Officer Name Role Phone Thiago Gregory APRN Primary Care Provider [phone] Doug Bill RN Unavailable Unavailable Encounter Details Date Type Department Care Team (Late st Contact Info) Description 03/16/2025 Telephone [place] [facility] [address] [place] [address] Ariana Clayton LPN [facility] Social History Tobacco Use Types [...] time in the past 12 m [facility], were you homeless or living in a [...] drink first t nigel in the morning (EYE-CRIME INVESTIGATOR SPECIAL AGENT) to steady your nerves or to get [...] encounter Miscellaneous Notes * Telephone Encounter - Talib Serna MD - 03/17/2025 12:13 PM EDT Spoke to patient. He is in [facility] Emergency Department now for evaluation. * Telephone Encounter - Ariana Clayton LPN [...] Visit Medical Office Building Urology [address] [facility], [address] [place] [address] Talib Serna MD [address] [address] 05/17/2025 10:35 AM EDT Hospital Encounter [facility] [address] [place] [address] Talib Serna MD [address] [address] 05/17/2025 10:35 AM EDT - 05/17/2025 12:05 PM EDT Surgery [facility] [address] [place] [address] Talib Serna MD [address] [address] URETEROSCOPY, WITH BIOPSY WITH POSSIBLE R URETERAL STENT EXCHANGE [85582 (CPT )] 06/17/2025 12:00 PM EDT Appointment [facility] [address] [place] [address] 06/17/2025 1:30 PM EDT Office Visit Medical Office Building Urology [address] [facility], [address] [place] [address] Talib Serna MD [address] [place] [address] 10/21/2025 11:00 AM EST Office Visit [place] [facility] [address] [place] [address] Mayi Ballard MD [address] [facility] [address] [...] as of this encounter Care Teams Chief Learning Officer Relationship Specialty Start Date End Date Thiago Gregory APRN [address] [place] [address] PCP - General 03/20/24 Doug Bill, RN ```````````````````````CH - PACU - MAJOR, PAV A Registered Nurse 12/23/24 documented as of this encounter
--- OUTSIDE RECORDS SUMMARY | 2025-04-15 15:10 | XMS_ITS | Encounter Summary ---
Author Organization Healthcare Address [address] [id number] Care Team Providers Care Dampener Name Role Phone Thiago Gregory APRN Primary Care Provider [phone] Doug Bill RN Unavailable Unavailable Reason for Visit * Reason Onset Date Comments HCN - Patient Message 02/16/2025 Encounter Details Date Type Department Care Team (Late st Contact Info) Description 02/16/2025 Telephone [place] [facility] [address] [place] [address] Talib Serna MD [address] [place] [address] HCN - Patient Message Social [...] any time in the past 12 m [facility], were you homeless or living in a fci (including now)? No 12/07/2024 CAGE ASSESSMENT Answer [...] drink first t nigel in the morning (EYE-PHARMACY TECHNOLOGY INSTRUCTOR) to steady your nerves or to get [...] optimal time of day to reach caller: [phone] - anytime Note: Please do not reply [...] Visit Medical Office Building Urology [address] [facility], [address] [place] [address] Talib Serna MD [address] [facility] [address] [place] [address] 05/17/2025 10:35 AM EDT Hospital Encounter [facility] [address] [place] [address] Talib Serna MD [address] [address] 05/17/2025 10:35 AM EDT - 05/17/2025 12:05 PM EDT Surgery [facility] [address] [place] [address] Talib Serna MD [address] [address] URETEROSCOPY, WITH BIOPSY WITH POSSIBLE R URETERAL STENT EXCHANGE [64085 (CPT )] 06/17/2025 12:00 PM EDT Appointment [facility] [address] [place] [address] 06/17/2025 1:30 PM EDT Office Visit Medical Office Building Urology [address] [facility], [address] [place] [address] Talib Serna MD [address] [address] 10/21/2025 11:00 AM EST Office Visit [place] [facility] [address] [place] [address] Mayi Ballard MD [address] [facility] [address] [place] [address] Scheduled Procedures Name Priority Associated Diagnoses Date/Ti [...] documented as of this encounter Care Teams Dampener Relationship Specialty Start Date End Date Thiago Gregory APRN [address] [place] [address] PCP - General 03/20/24 Doug Bill, RN ```````````````````````CH - PACU - MAJOR, PAV A Registered Nurse 12/23/24 documented as of this encounter
--- OUTSIDE RECORDS SUMMARY | 2025-04-15 15:10 | XMS_ITS | Encounter Summary ---
Author Organization Healthcare Address [address] [id number] Care Team Providers Care Treatment Coordinator Name Role Phone Thiago Gregory APRN Primary Care Provider [phone] Doug Bill RN Unavailable Unavailable Encounter Details Date Type Department Care Team (Late st Contact Info) Description 03/17/2025 Orders Only External Location [address] [place] [address] Provider, External Social History Tobacco Use Types [...] any time in the past 12 m [facility], were you homeless or living in a snf (including now)? No 12/07/2024 AUDIT-C Answer Date [...] drink first t nigel in the morning (EYE-SMALL PRODUCTS ASSEMBLER) to steady your nerves or to [...] Urology [address] [facility], [address] [place] [address] Talib Serna MD [address] [address] 05/17/2025 10:35 AM EDT Hospital Encounter [facility] A OPERATING ROOM [address] [place] [id number] Talib Serna MD [address] [address] 05/17/2025 10:35 AM EDT - 05/17/2025 12:05 PM EDT Surgery [facility] A OPERATING ROOM [address] [place] [address] Talib Serna MD [address] [address] URETEROSCOPY, WITH BIOPSY WITH POSSIBLE R URETERAL STENT EXCHANGE [34407 (CPT )] 06/17/2025 12:00 PM EDT Appointment [facility] [address], 2nd [place] [address] 06/17/2025 1:30 PM EDT Office Visit Medical Office Building Urology [address] [facility], [address] [place] [address] Talib Serna MD [address] [place] [address] 10/21/2025 11:00 AM EST Office [facility] [address], 2nd [place] [address] Mayi Ballard MD [address] [facility] 3rd Fl [address] [place] [address] Scheduled Procedures Name Priority Associated Diagnoses Date/Ti me URETEROSCOPY, WITH BIOPSY Ureteropelvic junction (UPJ) obstruction, right 05/17/2025 10:35 AM EDT documented as of this encounter Procedures Procedure Name Priority Date/Time Associated Diagnosis Comments CT OUTSIDE IMAGES 03/17/2025 1:43 PM EDT documented in this encounter Results * CT OUTSIDE IMAGES (03/17/2025 1:43 PM EDT) Anatomical Region Laterality Modality Computed Tomogra phy 03/17/2025 1:43 PM EDT us External Provider IMG CT PROCEDURES Final Result documented in this encounter Visit Diagnoses Not on filedocumented in this encounter Additional Health Concerns Assessment Noted Time A fall risk assessment has been complete d for the patient 03/16/2025 9:45 AM EDT A Body Mass Index follow-up plan has been documented for the patient 03/19/2025 1:33 PM EDT documented as of this encounter Care Teams Treatment Coordinator Relationship Specialty Start Date End Date Thiago Gregory APRN [address] [place] [address] PCP - General 03/20/24 Doug Bill RN ```````````````````````CH - PACU - MAJOR, PAV A Registered Nurse 12/23/24 documented as of this encounter
--- OUTSIDE RECORDS SUMMARY | 2025-04-15 15:10 | XMS_ITS | Encounter Summary ---
Author Organization [facility] Address [address] [id number] Care Team Providers Care Bank Clerk Name Role Phone Thiago Gregory APRN Primary Care Provider [phone] Doug Bill RN Unavailable Unavailable Encounter Details [...] any time in the past 12 m [facility], were you homeless or living in a alf (including now)? No 12/07/2024 CAGE ASSESSMENT Answer [...] drink first t nigel in the morning (EYE-ANIMAL CARETAKER SUPERVISOR) to steady your nerves or to [...] No Risk Indicated 02/17/2025 6:00 AM Arlene Carson, RN * Question Answer Date of Assessment Author 1. Wish to be (Past 1 Month) No 025 6:00 AM Arlene Carson, RN 2. Non-Specific Active Suici sean Thoughts (Past 1 Month) No 02/17/2025 6:00 AM EDT Arlene Sands, RN 6. Suicidal Behavior (Lifetime) No 6:00 AM EDT Arlene Sands, RN documented as of this encounter Plan of Treatment Upcoming Encounters Date Type Department Care Team (Latest Contact Info) Description 04/29/2025 9:00 AM EDT Office Visit Medical Office Building Urology [address] [facility], [address] [place] [address] Talib Serna MD [address] [address] 05/17/2025 10:35 AM EDT Hospital Encounter PAV A OPERATING ROOM [address] [place] [address] Talib Serna MD [address] [address] 05/17/2025 10:35 AM EDT - 05/17/2025 12:05 PM EDT Surgery PAV A OPERATING ROOM [address] [place] [address] Talib Serna MD [address] [address] URETEROSCOPY, WITH BIOPSY WITH POSSIBLE R URETERAL STENT EXCHANGE [54560 (CPT )] 06/17/2025 12:00 PM EDT Appointment [facility] CT [address], 2nd [place] [address] 06/17/2025 1:30 PM EDT Office Visit Medical Office Building Urology [address] [place] [address], [address] [place] [address] Talib Serna MD [address] [address] 10/21/2025 11:00 AM EST Office Visit [facility] [address], 2nd [place] [address] Mayi Ballard MD [address] [place] [address] Scheduled Procedures Name Priority Associated [...] documented as of this encounter Care Teams Bank Clerk Relationship Specialty Start Date End Date Thiago Gregory APRN [address] [place] [address] PCP - General 03/20/24 Doug Bill, RN ```````````````````````CH - PACU - MAJOR, PAV A Registered Nurse 12/23/24 documented as of this encounter
--- OUTSIDE RECORDS SUMMARY | 2025-04-15 15:10 | XMS_ITS | Encounter Summary ---
Author Organization Healthcare Address [address] [id number] Care Team Providers Care Edge Grinder Machine Name Role Phone Thiago Gregory APRN Primary Care Provider [phone] Doug Bill RN Unavailable Unavailable Encounter Details Date Type Department Care Team (Late st Contact Info) Description 03/17/2025 Orders Only External Location [address] [place] [address] Provider, External Social History Tobacco Use Types [...] drink first t nigel in the morning (EYE-PHONE BANKER) to steady your nerves or to get [...] Urology [address] [facility], [address] [place] [address] Talib Serna MD [address] [address] 05/17/2025 10:35 AM EDT Hospital Encounter PAV A OPERATING ROOM [address] [place] [address] Talib Serna MD [address] [address] 05/17/2025 10:35 AM EDT - 05/17/2025 12:05 PM EDT Surgery PAV A OPERATING ROOM [address] [place] [address] Talbi Serna MD [address] [address] URETEROSCOPY, WITH BIOPSY WITH POSSIBLE R URETERAL STENT EXCHANGE [26522 (CPT )] 06/17/2025 12:00 PM EDT Appointment [facility] [address], 2nd [place] [address] 06/17/2025 1:30 PM EDT Office Visit Medical Office Building Urology [address] [facility], [address] [place] [address] Talib Serna MD [address] [place] [address] 10/21/2025 11:00 AM EST Office Visit [facility] [address], 2nd [place] [address] Mayi Ballard MD [address] [facility] [address] [place] [address] Scheduled Procedures Name Priority Associated Diagnoses Date/Ti me URETEROSCOPY, WITH BIOPSY Ureteropelvic junction (UPJ) obstruction, right 05/17/2025 10:35 AM EDT documented as of this encounter Procedures Procedure Name Priority Date/Time Associated Diagnosis Comments CT MSK OUTSIDE IMAGES 03/17/2025 1:43 PM EDT documented in this encounter Results * CT MSK OUTSIDE IMAGES (03/17/2025 1:43 PM EDT) Anatomical Region Laterality Modality Computed Tomogra phy 03/17/2025 1:43 PM EDT External Provider IM CT PROCEDURES [...] documented as of this encounter Care Teams Edge Grinder Machine Relationship Specialty Start Date End Date Thiago Gregory APRN [address] [place] [address] PCP - General 03/20/24 Bill, Doug L, RN ```````````````````````CH - PACU - MAJOR, PAV A Registered Nurse 12/23/24 documented as of this encounter
--- OUTSIDE RECORDS SUMMARY | 2025-04-15 15:10 | XMS_ITS | Encounter Summary ---
Author Organization [facility] Address [address] [id number] Care Team Providers Care Director Of Real Estate Name Role Phone Thiago Gregory APRN Primary Care Provider [phone] Doug Bill RN Unavailable Unavailable Encounter Details [...] any time in the past 12 m [facility], were you homeless or living in a intermediate (including now)? No 12/07/2024 CAGE ASSESSMENT Answer [...] drink first t nigel in the morning (EYE-MAILING CLERK) to steady your nerves or to get [...] Visit Medical Office Building Urology [address] [facility], [address] [place] [address] Talib Senra MD [address] [facility] [address] [address] 05/17/2025 10:35 AM EDT Hospital Encounter PAV A OPERATING ROOM [address] [place] [address] Talib Serna MD [address] [address] 05/17/2025 10:35 AM EDT - 05/17/2025 12:05 PM EDT Surgery PAV A OPERATING ROOM [address] [place] [address] Talib Serna MD [address] [address] URETEROSCOPY, WITH BIOPSY WITH POSSIBLE R URETERAL STENT EXCHANGE [55924 (CPT )] 06/17/2025 12:00 PM EDT Appointment [facility] [address], 2nd [place] [address] 06/17/2025 1:30 PM EDT Office Visit Medical Office Building Urology [address] [facility], [address] [place] [address] Talib Serna MD [address] [address] 10/21/2025 11:00 AM EST Office Visit [facility] [address], 2nd [place] [address] Mayi Ballard MD [address] [facility] [address] [place] [address] Scheduled Procedures Name Priority Associated [...] documented as of this encounter Care Teams Director Of Real Estate Relationship Specialty Start Date End Date Thiago Gregory APRN [address] [place] [address] PCP - General 03/20/24 Doug Bill, RN ```````````````````````CH - PACU - MAJOR, PAV A Registered Nurse 12/23/24 documented as of this encounter
[2025-04-16 12:01] LABS: PSA, Free 1.14 ng/mL
== END 2025-04-15 23:59 | disposition home or self-care (01) ==
LOC: LAB 14:43
PROVIDERS: PCP Nurse Practitioner Family; Visit Provider Urology
DX: R97.20 Elevated prostate specific antigen [PSA] (principal)
CPT/HCPCS: 36415; 84153; 84154

== ENCOUNTER 2025-05-03 11:40 | Outpatient (CLI) | payer MEDICARE, OTHER, SELFPAY ==
--- OUTSIDE RECORDS SUMMARY | 2025-03-16 09:15 | XMS_ITS | Encounter Summary ---
Author Organization [facility] Address [address] [id number] Care Team Providers Care Spray Dry Operator Name Role Phone Thiago Gregory APRN Primary Care Provider [phone] Doug Bill RN Unavailable Unavailable Reason for Referral * Imaging (Routine) - Pending Review Specialty Diagnoses / Procedures Referred By Twila metzger Referred To Contact Radiology Diagnoses Hydronephrosis of right kidney Procedures CT Urogram Talib Serna MD [address] [address] Phone: tel: fax: Referral ID Status Reason Start Date Expiration Date V isits Requested Visits Authorized [id number] Pending Review 03/16/2025 09/15/2026 1 1 Reason for Visit * Reason Comments Cystoscope Stent Removal * Auth/Cert (Routine) Specialty Diagnoses / Procedures Referred By Twila metzger Referred To Contact Diagnoses Ureteropelvic junction (UPJ) obstruction, right removal of stent, pain when urinating Talib Serna MD [address] [address] Phone: tel: fax: P[facility] H Inpatient [address] [place] [address] Phone: tel: Referral ID Status Reason Start Date Expiration Date Visits Re quested Visits Authorized [id number] 1 1 Encounter Details Date Type Department Care Team (Latest Contact Info) Description 03/16/2025 9:15 AM EDT Office Visit Medical Office Building Urology [address] [facility], [address] [place] [address] Tailb Serna MD [address] [place] [address] Hydronephrosis of right kidney (Primary [...] any time in the past 12 m [facility], were you homeless or living in a fci (including now)? No 12/07/2024 AUDIT-C Answer Date [...] drink first t nigel in the morning (EYE-RN COMMUNITY) to steady your nerves or to get rid of a hangover? 0 03/17/2025 CAGE Questionnaire Score 0 025 Utilities Answer Date Recorded In the past 12 months has th e [employer], gas, oil, or water company threatened to [...] History: Procedure Laterality Date COLONOSCOPY CYSTOSCOPY 12/15/2024 ([facility]) cystosopy, ANTEGRADE URETEROSCOPY, right nephrostomy tube exchange (Ureter) URETEROSCOPY (Right) INSERTION OR REPLACEMENT, NEPHROSTOMY TUBE (Right) HIP ARTHROPLASTY Bilateral HIP SURGERY Right to replace recalled loli device KIDNEY STONE SURGERY LIVER BIOPSY NEPHROSTOMY 12/04/2024 ([facility]) INSERTION OR REPLACEMENT, NEPHROSTOMY TUBE (Right) PROSTATE BIOPSY SHOULDER SURGERY Left cadaver tendon placed in shoulder TONSILLECTOMY UPPER GASTROINTESTINAL ENDOSCOPY URETEROSCOPY 11/30/2024 ([facility]) URETEROSCOPY, RIGHT RETROGRADE (Right) CYSTOSCOPY (Bladder) [3] [...] Department Care Team (Latest Contact Info) Description 05/17/2025 3:05 PM EDT Hospital Encounter [facility] [address] [place] [address] Talib Serna MD [address] [address] [place] [address] 05/17/2025 3:05 PM EDT - 05/17/2025 4:35 PM EDT Surgery [facility] RO[facility] [address] [place] [address] Talib Serna MD [address] [address] URETEROSCOPY, WITH BIOPSY WITH POSSIBLE R URETERAL STENT EXCHANGE [23417 (CPT )] 06/17/2025 12:00 PM EDT Appointment [facility] [address] [place] [address] 06/17/2025 1:30 PM EDT Office Visit Medical Office Building Urology [address] [facility], [address] [place] [address] Talib Serna MD [address] [address] [place] [address] 10/21/2025 11:00 AM EST Office Visit [place] [facility] [address], [address] [place] [address] Mayi Ballard MD [address] [facility] [address] [place] [address] Scheduled Orders Name Type Priority Associated Diagnoses Orde r Schedule CT Urogram Imaging Routine Hydronephrosis of right kidney Expected: 06/16/2025 (Approximate), Expires: 09/17/2026 Scheduled Procedures Name Priority Associated Diagnoses Date/Ti me URETEROSCOPY, WITH BIOPSY Ureteropelvic junction (UPJ) obstruction, right 05/17/2025 3:05 PM EDT documented as of this encounter Procedures Procedure Name Priority Date/Time Associated Diagnosis Comments URO CYSTO SUPPLIES Routine 03/16/2025 9: 15 AM EDT Hydronephrosis of right kidney IN CYSTOSCOPY,REMV CALCULUS,SIMPLE Routine 03/16/2025 9:15 AM EDT Hydronephrosis of right kidney documented in this encounter Results * IN CYSTOSCOPY,REMV CALCULUS,SIMPLE, URO CYSTO SUPPLIES (03/16/2025 9:15 [...] documented as of this encounter Care Teams Spray Dry Operator Relationship Specialty Start Date End Date Thiago Gregory APRN [address] [place] [address] PCP - General 03/20/24 Doug iBll, RN ```````````````````````CH - PACU - MAJOR, PAV A Registered Nurse 12/23/24 documented as of this encounter
--- OUTSIDE RECORDS SUMMARY | 2025-03-17 17:05 | XMS_ITS | Encounter Summary ---
Author Organization [facility] Address [address] [id number] Care Team Providers Care Skin Care Technician Name Role Phone Thiago Gregory APRN Primary Care Provider [phone] Doug Bill RN Unavailable Unavailable Reason for Visit * Reason Comments Flank Pain * Auth/Cert (Routine) Specialty Diagnoses / Procedures Referred By Contac t Referred To Contact Diagnoses Ureteropelvic junction (UPJ) obstruction, right removal of stent, pain when urinating Talib Serna MD [address] [address] Phone: tel: fax: [facility] Inpatient [address] [place] [address] Phone: tel: Referral ID Status Reason Start Date Expiration Date Visits Re quested Visits Authorized [id number] 1 1 Encounter Details Date Type Department Care Team (Latest Contact Info) Description 03/17/2025 5:05 PM EDT - 03/19/2025 3:33 PM EDT Hospital Encounter [facility] Inpatient [address] [place] [address] Michelle Craig MD [address] [place] [address] Talib Serna MD [address] [address] Postoperative surgical complication involving genitourinary [...] any time in the past 12 m [facility], were you homeless or living in a half-way (including now)? 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 0 03/17/2025 CAGE Questionnaire Score 0 025 Utilities Answer Date Recorded In the past 12 months has th [employer], gas, oil, or water [facility] threatened to shut off services in your [...] confirm your location ahead of your appointment) [facility] Urology Department Clinic at [facility] [address], 2nd Floor, Wing [address], [address] [place] [address] Clinic After Hours [facility] Office Building Urology Clinic [address] [place] [address] Clinic After Hours documented in this encounter [...] for 11 doses. 22 tablet 03/19/2025 5 tamsulosin (Flomax) 0.4 MG 24 hr capsule Take 1 capsule by mouth 1 time each day with dinner. 60 capsule 02/20/2025 5 colchicine (Colcrys) 0.6 MG tablet Take 1 tablet by mouth 2 times a day. 5 documented as of this encounter Miscellaneous Notes * Progress Notes - Meryl Alvarado RN - 03/19/2025 12:52 PM EDT Case Management Discharge Note Parth Pratt 70 y.o. male CSN: [id number] Admission: 03/17/2025 5:05 PM Primary Problem: Ureteropelvic junction (UPJ) obstruction, right Primary Review Coordinator: Assistance Available at Discharge: Family/Review Coordinator(s) Willingness Assessed to care for patient at home: Yes Family/Review Coordinator(s) Readiness Assessed to care for patient [...] first notice.) Follow-up: Costa Sands MD [address] [facility] [address] Discharge Transportation: Transportation Anticipated: family or friend [...] with above DC plan. In??s APRIL Garcia, broiler manager * Consults - Bisi Chavez RD [...] PCP name and Address: Thiago Gregory APRN [address] [place] [address] / [address] [address] Referring provider name and address: Costa Sands MD [address] [place] [id number] Chief Concern, Brief History of Present Illness, [...] Your Medications These medications were sent to [facility] - [place], [place] - [address], [facility] [address] sulfamethoxazole-trimethoprim 800-160 MG tablet Discharge Diagnosis Medical [...] confirm your location ahead of your appointment) [facility] Urology Department Clinic at [address], 2[address] Floor, [place] [address], [address] [place] [address] Clinic After Hours [facility] Office Building Urology Clinic [address] [facility] [address] [place] [address] Clinic After Hours Outpatient Follow-Up Future Appointments Date Time Provider Department Center 04/08/2025 9:10 AM Mayi Ballard MBBS [facility] 06/17/2025 12:[address] 1 CTGSH [...] Jesus MD - 03/18/2025 11:32 AM EDT [facility] Urology Inpatient Progress Note Primary Attending: [...] PM EDT Operative Note Date: 03/17/25 Location: [place] [facility] Name: Parth Pratt, : 1955, Diagnoses: Pre-op Diagnosis Ureteropelvic junction (UPJ) obstruction, right Post-op Diagnosis Ureteropelvic junction (UPJ) obstruction, right Procedure(s): Cystoscopy with retrograde pyelogram Right diagnostic ureteroscopy Right ureteral stent placement Attending Surgeon(s): * Talib Serna - Primary Transcript Clerk(s): * Allan Daley MD - Resident - [...] Necessity Reasons Recent surgery contiguous with urinary tract/PRISON OFFICER/colorectal 03/17/252234 Ureteral Drain/Stent Right ureter 7 Fr. (Active) Implants Type Name Action Serial No. Stent STENT URETERAL [employer] MONOFILAMENT 7F/[id number] - [id number] Implanted Specimen: Specimens ID Source Frozen? A [...] MD Consult ordered by: Michelle Craig MD [facility] Urology Consult Note 03/17/25 Service Requesting [...] to persistent pain prompting him to visit [facility] ED. At [facility] ED, labs notable [...] - NPO - Admit to urology - [facility] - Trend labs Allan Daley MD [...] Laterality Date COLONOSCOPY CYSTOSCOPY 12/15/2024 ([facility]) cystosopy, ANTEGRADE URETEROSCOPY, right nephrostomy tube exchange (Ureter) URETEROSCOPY (Right) INSERTION OR REPLACEMENT, NEPHROSTOMY TUBE (Right) HIP ARTHROPLASTY Bilateral HIP SURGERY Right to replace recalled loli device KIDNEY STONE SURGERY LIVER BIOPSY NEPHROSTOMY 12/04/2024 ([facility]) INSERTION OR REPLACEMENT, NEPHROSTOMY TUBE (Right) PROSTATE BIOPSY SHOULDER SURGERY Left cadaver tendon placed in shoulder TONSILLECTOMY UPPER GASTROINTESTINAL ENDOSCOPY URETEROSCOPY 11/30/2024 ([facility]) URETEROSCOPY, RIGHT RETROGRADE (Right) CYSTOSCOPY (Bladder) [...] Mood normal. EASI ?? Total Score: 0 [place] Coma Scale Score: 15 Mini Nutritional Screening [...] DALEY 03/17/251826 Do NOT transfer patient to [facility] without chief resident or attending apporval Until [...] Acknowledged EDI ALLAN Consuelo 03/17/25 1820 Void station captain to OR Once Acknowledged ALLAN DALEY 03/17/25 [...] Laterality Date COLONOSCOPY CYSTOSCOPY 12/15/2024 ([facility]) cystosopy, ANTEGRADE URETEROSCOPY, right nephrostomy tube exchange (Ureter) URETEROSCOPY (Right) INSERTION OR REPLACEMENT, NEPHROSTOMY TUBE (Right) HIP ARTHROPLASTY Bilateral HIP SURGERY Right to replace recalled loli device KIDNEY STONE SURGERY LIVER BIOPSY NEPHROSTOMY 12/04/2024 ([facility]) INSERTION OR REPLACEMENT, NEPHROSTOMY TUBE (Right) PROSTATE BIOPSY SHOULDER SURGERY Left cadaver tendon placed in shoulder TONSILLECTOMY UPPER GASTROINTESTINAL ENDOSCOPY URETEROSCOPY 11/30/2024 ([facility]) URETEROSCOPY, RIGHT RETROGRADE (Right) CYSTOSCOPY (Bladder) [...] Hospital Encounter [facility] OPERATING ROOM [address] [place] [address] Talib Serna MD [address] [place] [address] 05/17/2025 3:05 PM EDT - 05/17/2025 4:35 PM EDT Surgery [facility] OPERATING ROOM [address] [place] [address] Talib Serna MD [address] [facility] [address] [place] [address] URETEROSCOPY, WITH BIOPSY WITH POSSIBLE R URETERAL STENT EXCHANGE [15886 (CPT )] 06/17/2025 12:00 PM EDT Appointment [facility] [address] [place] [phone] 06/17/2025 1:30 PM EDT Office Visit Medical Office Building Urology [address] [facility], [address] [place] [address] Talib Serna MD [address] [facility] [address] [place] [address] 10/21/2025 11:00 AM EST Office Visit [facility] Clinic Medicine Specialties [address], [address] [place] [address] Mayi Ballard MD [address] [facility] [address] [place] [phone] Scheduled Procedures Name Priority Associated Diagnoses Date/Ti [...] PM EDT Ureteropelvic junction (UPJ) obstruction, right [place] CYSTO/URETERO/PYELOSCO PY, DX 03/17/2025 9:21 PM EDT [...] - 99 mg/dL 03/18/2025 4:[address] [facility] BUN, Plasma 9 8 - 23 mg/dL 03/18/2025 4:[address] [facility] Creatinine, Plasma 0.68(L) 0.70 - 1.20 mg/dL 03/18/2025 4:[address] [facility] BUN/Creatinine Ratio 13 03/18/2025 4:[address] [facility] Sodium, Plasma 138 136 - 145 mmol/L 03/18/2025 4:[address] [facility] Potassium, Plasma 4.6 3.6 - 4.9 mmol/L 03/18/2025 4:[address] [facility] Chloride, Plasma 104 97 - 107 mmol/L 03/18/2025 4:[address] [facility] CO2, Plasma 24 22 - 29 mmol/L 03/18/2025 4:[address] [facility] Anion Gap 10 6 - 16 mmol/L 03/18/2025 4:[address] [facility] Total Calcium, Plasma 9.4 8.9 - 10.2 mg/dL 03/18/2025 4:[address] [facility] eGFRcr 99.4 mL/min/1.7 3m*2 03/18/2025 4:[address] [facility] Comment:Reported eGFRcr in m L/min/1.73m2 is based the CKD-EPI 2020 equation that does not use a race coefficient. Blood Venous blood specimen / Unknown Venipuncture / Unknown 03/18/2025 4:09 AM EDT 03/18/2025 4:27 AM EDT us Talib Serna MD LAB BLOOD ORDERABLES Final Res ult [facility] [address] [place] [address] * (ABNORMAL) Hemogram (CBC) (03/18/2025 4:09 AM EDT) WBC Count 17.56(H) 3.70 - 10.30 10*3/uL LAB HEMATOLOGY METHOD 03/18/2025 4:[address] [facility] RBC Count 4.47(L) 4.60 - 6.10 10*6/uL LAB HEMATOLOGY METHOD 03/18/2025 4:[address] [facility] HGB 13.4(L) 13.7 - 17.5 g/dL LAB HEMATOLOGY METHOD 03/18/2025 4:[address] [facility] HCT 40.3 40.0 - 51.0 % LAB HEMATOLOGY METHOD 03/18/2025 4:[address] [facility] Platelet Count 201 155 - 369 10*3/uL LAB HEMATOLOGY METHOD 03/18/2025 4:[address] [facility] MCV 90 79 - 98 fL LAB HEMATOLOGY METHOD 03/18/2025 4:[address] [facility] MCH 30.0 26.0 - 32.0 pg LAB HEMATOLOGY METHOD 03/18/2025 4:[address] [facility] MCHC 33.3 30.7 - 35.5 g/dL LAB HEMATOLOGY METHOD 03/18/2025 4:[address] [facility] RDW 13.2 11.5 - 14.5 % LAB HEMATOLOGY METHOD 03/18/2025 4:[address] [facility] MPV 10.8 8.8 - 12.5 fL LAB HEMATOLOGY METHOD 03/18/2025 4:[address] [facility] nRBC 0.0 <=0.0 per 100 WBCs LAB HEMATOLOGY METHOD 03/18/2025 4:[address] [facility] Blood Venous blood specimen / Unknown Venipuncture / Unknown 03/18/2025 4:09 AM EDT 03/18/2025 4:27 AM EDT us Talib Serna MD LAB BLOOD ORDERABLES Final Res ult [facility] [address] [place] [address] * [place] Less than 1 Hour Intraoperative [...] CFU/mL Lucie albicans(A) 03/20/2025 7:[address] [facility] Comment: This isolate has been identified using the FDA Approved [employer] [place] System Edited result: Previously reported as Yeast on 03/18/2025 at 2123 EDT. Urine Right kidney structure / Unknown 03/17/2025 10:09 PM EDT 03/17/2025 11:55 PM EDT Comment:Pre-op diagnosis: Ureteropelvic junction (UPJ) obstruction, right [N13.5] Tailb Serna MD LAB MICROBIOLOGY - GENERAL ORD ERABLES Final Result Performing Organization Address [facility]/ZIP Co de Phone Number [facility] [address] [place] [address] * SEND OMA MESSAGE (03/17/2025 6:28 PM EDT) Urine Urine specimen obtained by clean catch procedure / Unknown Non-blood Collection / Unknown 03/17/2025 6:28 PM EDT 03/17/2025 7:12 PM EDT Michelle Craig MD LAB URINE ORDERABLES Final Re sult Performing Organization Address [facility] [place] [address] * (ABNORMAL) Urine Culture (03/17/2025 6:28 PM EDT) [facility] Signature Culture 10,000 - 100,000 CFU/mL Lucie albicans(A) 03/20/2025 7:40 AM EDT [facility] Comment: This isolate has been identified using the FDA Approved [employer] [place] System Edited result: Previously reported as Yeast on 03/18/2025 at 1726 EDT. Urine Urine specimen obtained by clean catch procedure / Unknown Non-blood Collection / Unknown 03/17/2025 6:28 PM EDT 03/17/2025 7:12 PM EDT us Michelle Craig MD LAB MICROBIOLOGY - GENERAL OR DERABLES Final Result Performing Organization Address [facility] Co de Phone Number [facility] [address] [place] [address] * Urinalysis Microscopic Examination (03/17/2025 6:28 PM EDT) Urine Urine specimen obtained by clean catch procedure / Unknown Non-blood Collection / Unknown 03/17/2025 6:28 PM EDT 03/17/2025 6:43 PM EDT us Michelle Craig MD LAB URINE ORDERABLES Final Re sult Performing Organization Address [facility]/ZIP Co de Phone Number [facility] [address] [place] [address] * Urine Barlow Panel (03/17/2025 6:28 PM EDT) Extra Sent for Culture 03/17/2025 9:[address] [facility] Urine Urine specimen obtained by clean catch procedure / Unknown Non-blood Collection / Unknown 03/17/2025 6:28 PM EDT 03/17/2025 7:12 PM EDT us Michelle Craig MD LAB URINE ORDERABLES Final Re sult Performing Organization Address [facility] de Phone Number [facility] [address] [place] [address] * (ABNORMAL) Urinalysis with reflex microscopic (Culture NOT Included) (03/17/2025 6:28 PM EDT) Color, Urine Yellow LAB URINALYSIS - AUTOMATED METHOD 03/17/2025 7:[address] [facility] Clarity, Urine Cloudy LAB URINALYSIS - AUTOMATED METHOD 03/17/2025 7:[address] [facility] Spec [place], Urine >1.030(H) 1.005 - 1.030 LAB URINALYSIS - AUTOMATED METHOD 03/17/2025 7:[address] [facility] pH, Urine 7.5 5.0 - 8.0 LAB URINALYSIS - AUTOMATED METHOD 03/17/2025 7:[address] [facility] Protein, Urine 30(A) Negative mg/dL LAB URINALYSIS - AUTOMATED METHOD 03/17/2025 7:[address] [facility] Glucose, Urine Negative Negative mg/dL LAB URINALYSIS - AUTOMATED METHOD 03/17/2025 7:[address] [facility] Ketones, Urine Trace(A) Negative mg/dL LAB URINALYSIS - AUTOMATED METHOD 03/17/2025 7:[address] [facility] Blood, Urine Moderate(A) Negative LAB URINALYSIS - AUTOMATED METHOD 03/17/2025 7:[address] [facility] Bilirubin, Urine Negative Negative LAB URINALYSIS - AUTOMATED METHOD 03/17/2025 7:[address] [facility] Urobilinogen, Urine 1.0 0.2 to 1.0 mg/dL LAB URINALYSIS - AUTOMATED METHOD 03/17/2025 7:[address] [facility] Leukocytes, Urine Large(A) Negative LAB URINALYSIS - AUTOMATED METHOD 03/17/2025 7:[address] [facility] Nitrite, Urine Negative Negative LAB URINALYSIS - AUTOMATED METHOD 03/17/2025 7:[address] [facility] RBC, Urine 11 - 15(A) 0 to 3 /HPF LAB URINALYSIS - AUTOMATED METHOD 03/17/2025 7:[address] [facility] Comment:This result was prev iously suppressed from the chart. WBC, Urine >50(A) 0 to 5 /HPF LAB URINALYSIS - AUTOMATED METHOD 03/17/2025 7:[address] [facility] Comment:This result was prev iously suppressed from the chart. Squamous Epithelial Cells 0 - 2 0 to 5 /HPF LAB URINALYSIS - AUTOMATED METHOD 03/17/2025 7:[address] [facility] Comment:This result was prev iously suppressed from the chart. Hyaline Casts 3 - 5 0 to 5 /LPF LAB URINALYSIS - AUTOMATED METHOD 03/17/2025 7:[address] [facility] Comment:This result was prev iously suppressed from the chart. Bacteria, Urine Present Negative LAB URINALYSIS - AUTOMATED METHOD 03/17/2025 7:[address] [facility] Comment:This result was prev iously suppressed from the chart. Urine Urine specimen obtained by clean catch procedure / Unknown Non-blood Collection / Unknown 03/17/2025 6:28 PM EDT 03/17/2025 6:43 PM EDT us Michelle Craig MD LAB URINE ORDERABLES Final Re sult [facility] [address] [place] [address] * (ABNORMAL) CMP (03/17/2025 6:28 PM EDT) Glucose, Plasma 107(H) 74 - 99 mg/dL 03/17/2025 7:[address] [facility] BUN, Plasma 11 8 - 23 mg/dL 03/17/2025 7:[address] [facility] Creatinine, Plasma 0.75 0.70 - 1.20 mg/dL 03/17/2025 7:[address] [facility] BUN/Creatinine Ratio 15 03/17/2025 7:[address] [facility] Sodium, Plasma 137 136 - 145 mmol/L 03/17/2025 7:[address] [facility] Potassium, Plasma 4.1 3.6 - 4.9 mmol/L 03/17/2025 7:[address] [facility] Chloride, Plasma 102 97 - 107 mmol/L 03/17/2025 7:[address] [facility] CO2, Plasma 23 22 - 29 mmol/L 03/17/2025 7:[address] [facility] Anion Gap 12 6 - 16 mmol/L 03/17/2025 7:[address] [facility] Total Calcium, Plasma 9.0 8.9 - 10.2 mg/dL 03/17/2025 7:[address] [facility] Total Protein 6.9 6.3 - 7.9 g/dL 03/17/2025 7:[address] [facility] Albumin, Plasma 3.8 3.5 - 5.2 g/dL 03/17/2025 7:[address] [facility] AST, Plasma 14 10 - 50 U/L 03/17/2025 7:[address] [facility] ALT, Plasma 13 10 - 50 U/L 03/17/2025 7:[address] [facility] Alkaline Phosphatase, Plasma 66 40 - 115 U/L 03/17/2025 7:[address] [facility] Total Bilirubin, Plasma 0.7 0.2 - 1.1 mg/dL 03/17/2025 7:[address] [facility] eGFRcr 96.5 mL/min/1.7 3m*2 03/17/2025 7:[address] [facility] Comment:Reported eGFRcr in m L/min/1.73m2 is based the CKD-EPI 2020 equation that does not use a race coefficient. Blood Venous blood specimen / Unknown Venipuncture / Unknown 03/17/2025 6:28 PM EDT 03/17/2025 6:43 PM EDT us Michelle Craig MD LAB BLOOD ORDERABLES Final Re sult [facility] [address] [place] [address] * (ABNORMAL) CBC w/diff (03/17/2025 6:28 PM EDT) WBC Count 15.45(H) 3.70 - 10.30 10*3/uL LAB HEMATOLOGY METHOD 03/17/2025 6:[address] [facility] RBC Count 4.48(L) 4.60 - 6.10 10*6/uL LAB HEMATOLOGY METHOD 03/17/2025 6:[address] [facility] HGB 13.5(L) 13.7 - 17.5 g/dL LAB HEMATOLOGY METHOD 03/17/2025 6:[address] [facility] HCT 39.9(L) 40.0 - 51.0 % LAB HEMATOLOGY METHOD 03/17/2025 6:[address] [facility] Platelet Count 179 155 - 369 10*3/uL LAB HEMATOLOGY METHOD 03/17/2025 6:[address] [facility] MCV 89 79 - 98 fL LAB HEMATOLOGY METHOD 03/17/2025 6:[address] [facility] MCH 30.1 26.0 - 32.0 pg LAB HEMATOLOGY METHOD 03/17/2025 6:[address] [facility] MCHC 33.8 30.7 - 35.5 g/dL LAB HEMATOLOGY METHOD 03/17/2025 6:[address] [facility] RDW 13.2 11.5 - 14.5 % LAB HEMATOLOGY METHOD 03/17/2025 6:[address] [facility] MPV 11.1 8.8 - 12.5 fL LAB HEMATOLOGY METHOD 03/17/2025 6:[address] [facility] nRBC 0.0 <=0.0 per 100 WBCs LAB HEMATOLOGY METHOD 03/17/2025 6:[address] [facility] Differential Type Automated LAB HEMATOLOGY METHOD 03/17/2025 6:[address] [facility] Neutrophils % 77 % LAB HEMATOLOGY METHOD 03/17/2025 6:[address] [facility] Lymphocytes % 11 % LAB HEMATOLOGY METHOD 03/17/2025 6:[address] [facility] Monocytes % 10 % LAB HEMATOLOGY METHOD 03/17/2025 6:[address] [facility] Eosinophils % 1 % LAB HEMATOLOGY METHOD 03/17/2025 6:[address] [facility] Basophils % 0 % LAB HEMATOLOGY METHOD 03/17/2025 6:[address] [facility] Immature Granulocytes % 1 % LAB HEMATOLOGY METHOD 03/17/2025 6:[address] [facility] Neutrophils Absolute 11.98(H) 1.60 - 6.10 10*3/uL LAB HEMATOLOGY METHOD 03/17/2025 6:[address] [facility] Lymphocytes Absolute 1.64 1.20 - 3.90 10*3/uL LAB HEMATOLOGY METHOD 03/17/2025 6:[address] [facility] Monocytes Absolute 1.57(H) 0.30 - 0.90 10*3/uL LAB HEMATOLOGY METHOD 03/17/2025 6:[address] [facility] Eosinophils Absolute 0.15 0.00 - 0.50 10*3/uL LAB HEMATOLOGY METHOD 03/17/2025 6:[address] [facility] Basophils Absolute 0.03 0.00 - 0.10 10*3/uL LAB HEMATOLOGY METHOD 03/17/2025 6:[address] [facility] Immature Granulocytes Absolute 0.08(H) 0.00 - 0.06 10*3/uL LAB HEMATOLOGY METHOD 03/17/2025 6:[address] [facility] Blood Venous blood specimen / Unknown Venipuncture / Unknown 03/17/2025 6:28 PM EDT 03/17/2025 6:[address] [facility] - 03/17/2025 6:48 PM EDT Therapeutic decision making should be based on absolute values, rather than percentages. us Michelle Craig MD LAB BLOOD ORDERABLES Final Re sult [facility] [address] [place] [address] documented in this encounter Visit Diagnoses Diagnosis [...] Continuous, Starting on Sat03/17/25 at 1830, Until Sat03/18/25 at 0912, Routine New Bag 03/17/2025 11:35 [...] Provider: Julieth Pablo RN - Reason: Patient/family refused)181 (Given - Provider: Julieth Pablo RN)2346 (Given - Provider: Nenita Spears RN) 0629 (Given - Provider: Nenita Spears, FARTUN)1258 (Not Given - Provider: Tami Ramírez, FARTUN - Reason: Patient/family refused) cefTRIAXone (Rocephin) 1 g in sodium chloride 0.9% 100 mL IVPB (vial adapter required) (CANCELED) 1 g, Intravenous, Every 24 hours, First dose on Sat03/17/25 at 1840, Until Discontinued, Routine 192 (New Bag - Provider: Urszula Sawyer, FARTUN)2039 (Stopped - Provider: Urszula Sawyer RN) enoxaparin (Lovenox) syringe 40 mg 40 mg, Subcutaneous, Every 24 hours scheduled, First dose on Sat03/17/25 at 1830, Until Discontinued, Routine 1918 (Given - Provider: Urszula Sawyer, FARTUN)2121 (NOV Hold - Provider: Automatic Transfer Provider - Reason: Patient in procedure)234 (NOV Unhold - Provider: Automatic Transfer Provider) 0827 (Given - Provider: Julieth Pablo RN) 0822 (Given - Provider: Tami Ramírez RN) fluconazole in NS (Diflucan) IVPB 400 mg [...] Routine 0233 (Given - Provider: Nenita Spears, FARTUN) ondansetron (Zofran) injection 4 mg (COMPLETED) 4 mg, Intravenous, Once, 1 dose, On Sat03/17/25 at 1805, STAT 1847 (Given - Provider: Krystal Rabago RN) sodium chloride 0.9 % flush 10 mL(Linked Group 1) 10 mL, Intravenous, Every 12 hours, First dose on Sat03/17/25 at 1830, Until Discontinued, Routine 1855 (Given - Provider: Krystal Rabago RN)2121 (NOV Hold - Provider: Automatic Transfer Provider - Reason: Patient in procedure)234 ([facility] Unhold - Provider: Automatic Transfer Provider) 0556 (Given - Provider: Khushi Manzano, RN)1813 (Given - Provider: Julieth Pablo, FARTUN) 0707 (Given - Provider: Nenita Spears, RN) sulfamethoxazole-trime thoprim (Bactrim DS) 800-160 MG per tablet 2 tablet 2 tablet, Oral, 2 times daily, 14 doses, First dose on Sat03/18/25 at 0900, Last dose on Sat03/24/25 at 2100, Routine 0827 (Given - Provider: Julieth Pablo, FARTUN)2144 (Given - Provider: Nenita Spears, RN) 08 (Given - Provider: Tami Ramírez RN) Continuous Medication Order 03/17/2025 03/18/2025 03/19/2025 lactated Ringer's infusion (CANCELED) 84 mL/hr, Intravenous, Continuous, Starting on Sat03/17/25 at 1830, Until Sat03/18/25 at 0912, Routine 184 (New Bag - Provider: Krystal Rabago RN)2136 (Stopped - Provider: Rick Ashley MD)2136 (Canceled Entry - Provider: Rick Ashley MD - Comment: Switch to gravity)2137 (Canceled Entry - Provider: Rick Ashley MD)2138 (New Bag - Provider: Rick Ashley MD)233 (New Bag - Provider: Ann Singleton RN) PRN Medication Order 03/17/2025 03/18/2025 03/19/2025 HYDROmorphone (Dilaudid) injection 0.5 mg 0.5 mg, Intravenous, Every 4 hours PRN, Starting on Sat03/17/25 at 1835, Until Sat03/19/25 at 1733, Routine, severe pain 2121 (NOV Hold - Provider: Automatic Transfer Provider - Reason: Patient in procedure)2340 ([facility] Unhold - Provider: Automatic Transfer Provider) iohexol (OMNIPaque) 300 MG/ML injection (CANCELED) As needed, Starting on Sat03/17/25 at 2204, Until Sat03/17/25 at 2235, Routine, Intraprocedure 2203 (Given - Provider: Allan Daley MD - Comment: RIGHT RGP) morphine PF 2 mg 2 mg, Intravenous, As needed, Starting on Sat03/17/25 at 1800, Until Sat03/19/25 at 1733, STAT, severe pain 1845 (Given - Provider: Krystal Rabago RN)2121 ([facility] Hold - Provider: Automatic Transfer Provider - Reason: Patient in procedure)2340 ([facility] Unhold - Provider: Automatic Transfer Provider) ondansetron (Zofran) injection 4 mg 4 mg, Intravenous, Every 6 hours PRN, Starting on Sat03/17/25 at 1826, Until Sat03/19/25 at 1733, Routine, nausea, vomiting 2121 ([facility] Hold - Provider: Automatic Transfer Provider - Reason: Patient in procedure)2340 ([facility] Unhold - Provider: Automatic Transfer Provider) oxyCODONE (Roxicodone) immediate release tablet 5 mg 5 mg, Oral, Every 4 hours PRN, Starting on Sat03/17/25 at 1826, Until Sat03/19/25 at 1733, Routine, severe pain 2121 ([facility] Hold - Provider: Automatic Transfer Provider - Reason: Patient in procedure)2340 ([facility] Unhold - Provider: Automatic Transfer Provider) sodium chloride 0.9 % flush 10 mL(Linked Group 1) 10 mL, Intravenous, As needed, Starting on Sat03/17/25 at 1825, Until Sat03/19/25 at 1733, Routine, line care 2121 ([facility] Hold - Provider: Automatic Transfer Provider - Reason: Patient in procedure)2340 ([facility] Unhold - Provider: Automatic Transfer Provider) Linked [...] documented as of this encounter Care Teams Skin Care Technician Relationship Specialty Start Date End Date Thiago Gregory APRN [address] [place] [id number] PCP - General 03/20/24 Doug Bill RN ```````````````````````[facility] - PACU - MAJOR, PAV A Registered Nurse 12/23/24 documented as of this encounter
--- OUTSIDE RECORDS SUMMARY | 2025-03-17 21:37 | XMS_ITS | Encounter Summary ---
Author Organization Healthcare Address [address] [id number] Care Team Providers Care Strickler Attendant Name Role Phone Thiago Gregory APRN Primary Care Provider [phone] Doug Bill RN Unavailable Unavailable Reason for Visit * Auth/Cert (Routine) Specialty Diagnoses / Procedures Referred By Contac t Referred To Contact Diagnoses Ureteropelvic junction (UPJ) obstruction, right removal of stent, pain when urinating Talib Serna MD [address] [facility] [address] [place] [address] Phone: tel: fax: [facility] H Inpatient [address] [place] [address] Phone: tel: Referral ID Status Reason Start Date Expiration Date Visits Re quested Visits Authorized [id number] 1 1 Encounter Details Date Type Department Care Team (Late st Contact Info) Description 03/17/2025 9:37 PM EDT Anesthesia Event [facility] OPERATING ROOM [address] [place] [address] Benito Rosenbaum DO [address] [place] [address] Rick Ashley MD [address] [id number] Anesthesia Record Procedure Summary Procedure Name Responsible Anesthesiologist Anesthesia Start Time Anesthesia Stop Time URETEROSCOPY, COMPLEX (Right: Ureter) Benito Rosenbaum DO 03/17/25213603/17/25 2250 Events Date Time Event Comment 03/17/20251999 Proc Start 2135 In Room 2136 An Start The patient was reevaluated immediately before sedation and remains eligible for anesthesia plan. 2136 An Start Data 2140 An Induction The patient was reevaluated immediately before moderate or deep sedation use and before anesthesia induction. 2141 An Intubation 2144 Anesthesia Ready 2221 Proc Fin 2224 An Extubation 2227 an stop data 2230 Out of Room 2249 Handoff to Receiving I compl eted my handoff to the receiving clinician during which we: 1. Identified the patient 2. Identified the responsible provider 3. Reviewed the pertinent medical history 4. Discussed the surgical course 5. Reviewed intra-op anesthesia management and issues during anesthesia 6. Set expectations for post-procedure period 7. Allowed opportunity for questions and acknowledgement of understanding. 2249 An Stop Meds Name Total propofol (Diprivan) injection 10 mg/mL 2 00 mg fentaNYL (Sublimaze) injection 50 mcg/mL 100 mcg lidocaine PF (Xylocaine-MPF) 2% 100 mg rocuronium (ZeMuron) injection 10 mg/mL 30 mg succinylcholine (Anectine) injection 20 mg/mL 100 mg phenylephrine (Vinny-Synephrine) prefilled syringe 1 mg/10 mL 200 mcg ondansetron (Zofran) injection 2 mg/mL 4 mg sugammadex (Bridion) injection 100 mg/mL 200 mg dexamethasone (Decadron) injection 4 mg/ mL 4 mg gentamicin (Garamycin) 340 mg in sodium chloride 0.9 % 100 mL IVPB 340 mg lactated Ringer's infusion 0 mL * Agents Name O2 * Blood [...] Upper 02/17/25 1032 by Rekha Garrison RN Ureteral Drain/Stent 03/17/25; 2216; No; Yes; Right ureter; 7 Fr. (7 x 22); Yes 03/17/252215 by Harriett Samaniego RN Wound 12/05/24; 0027; N; Y es; Incision; Back; Lower, Right; 03/18/25; 1999; Healed 12/05/24 0027 by Fabiola Waller RN 03/18/251999 by Nenita Spears RN Peripheral IV Placement Date: 02/28 05/24; Existing LDA Placed by: Outside Facility; Catheter Size: 18 G; Orientation: Left; Location: Antecubital; Removal Date: 03/19/25; Removal Time: 133203/17/25 0000 by Krystal Rabago RN 03/19/25 1333 by Tami Ramírez RN ETT Placement Date: 02/28 05/24; Placement Time: 2141 (created via procedure documentation); Mask Ventilation: 0; Technique: Direct laryngoscopy; Type: ETT - single; Single Lumen Tube Size: 7.5 mm; Cuffed: Yes; Laryngoscope: Jennifer; Blade Size: 4; Location: Oral; Grade View: Grade IIb; Insertion Attempts: 1; Placement Verification: Auscultation, Capnometry; Airway Comments: Atraumatic. No change to dentition. History of intubation with use of glidescope. DL with 2b view initially unsuccessful, reattempted by anesthesiologist and successful pass of ETT with same view; Placed by: Anesthesiologist; Removal Date: 03/17/25; Removal Time: 222403/17/252141 by Rick Ashley MD 03/17/252224 by Rick Ashley MD Urethral Catheter Placement Date: 02/28 05/24; Placement Time: 2221; Inserted by: ; Type: Double-lumen, Non-latex; Size: 16 Fr.; Balloon Size: 10 mL; Urine Returned: Yes; Removal Date: 03/19/25; Removal Time: 809; Removal Reason: Per order 03/17/252221 by Harriett Samaniego RN 03/19/25 08 by Tami Ramírez RN documented in this encounter Social History [...] any time in the past 12 m [facility], were you homeless or living in a fdc (including now)? No 12/07/2024 AUDIT-C Answer Date [...] drink first t nigel in the morning (EYE-TEST INSPECTION ENGINEER) to steady your nerves or to get [...] Date of Assessment Author No Risk Indicated 03/18/2025 12:00 AM EDT Khushi Jnae RN * Question Answer Date of Assessment Author 1. Wish to be (Past 1 Month) No 03/18/2025 12:00 AM EDT Emmett Manzano RN 2. Non-Specific Active Suicidal Thoughts (Past 1 Month) No 03/18/2025 12:00 AM EDT Emmett Manzano RN 6. Suicidal Behavior (Lifetime) No 03/18/2025 12:00 AM EDT Emmett Manzano RN documented as of this encounter Miscellaneous Notes * Anesthesia Postprocedure Evaluation - Rick Ashley MD - 03/17/2025 10:50 PM EDT Patient: Parth Pratt Anesthesia Type: No value filed. Vitals Value Taken Time BP 149/83 03/17/25 22:45 Temp 36.5 C 03/17/25 22:50 Pulse 90 03/17/25 22:49 Resp 26 03/17/25 22:49 SpO2 98 % 03/17/25 22:49 Vitals shown include unfiled device data. Anesthesia Post Evaluation Patient location during evaluation: PACU Patient participation: complete - patient participated Level of consciousness: awake Pain management: adequate (pain score 0-3) Airway patency: natural airway Cardiovascular status: acceptable and hemodynamically stable Respiratory status: acceptable and blow-by oxygen Hydration status: acceptable Nausea/Vomiting: No Comments: Upon arriving in the patients recovering room, the pt was signed out to RING STRIKER. The pt'sname, pertinent allergies, and medical history was dicussed with the RING STRIKER. The intraoperative course, narcotics/pain adjuncts, paralytics/reversal, anti-emetics and IV access were discussed. Additional pain medications and anti-emetics are ordered as needed for pain/nausea. At this time, the pt's vitals signs are stable and responsive to conversation. No other questions or concerns were noted by the RING STRIKER at the time of handoff. No notable events documented. Cosigned by Benito Rosenbaum DO at 03/18/2025 1:19 AM EDT Associated attestation - Benito Rosenbaum DO - 03/18/2025 1:19 AM EDT I agree with the findings and care plan documented in the postprocedure evaluation note. * Anesthesia Procedure Notes - Rick Ashley MD - 03/17/2025 10:06 PM EDT Associated Order(s): Airway Airway Date/Time: 03/17/2025 9:42 PM Reason: elective Airway not difficult General Information and Staff Patient location during procedure: OR Anesthesiologist: Benito Rosenbaum DO Resident: Rick Ashley MD Performed: Anesthesiologist Patient Condition Indications for airway management: anesthesia Patient position: sniffing Final Airway Details Final airway type: endotracheal airway Successful airway: ETT Cuffed: yes Successful intubation technique: direct laryngoscopy Adjuncts used in placement: intubating stylet Endotracheal tube insertion site: oral Blade: Jennifer Blade size: #4 ETT size (mm): 7.5 Cormack-Lehane Classification: grade IIb - view of arytenoids or posterior of glottis only Placement verified by: chest auscultation and capnometry Measured from: teeth ETT to teeth (cm): 23 Additional Comments Atraumatic. No change to dentition. History of intubation with use of glidescope. DL with 2b view initially unsuccessful, reattempted by anesthesiologist and successful pass of ETT with same view Cosigned by Benito Rosenbaum DO at 03/17/2025 10:40 PM EDT Associated attestation - Benito Rosenbaum DO - 03/17/2025 10:40 PM EDT I was present during all critical and sanchez portions of the procedure(s) and immediately available [facility] services the entire duration. See resident note for details. * Anesthesia Preprocedure Evaluation - Rick Ashley MD - 03/17/2025 10:03 PM EDT Patient: Parth Bob Pratt Procedure Information Date/Time: 02/17/25814 Procedure: PYELOPLASTY, ROBOT-ASSISTED, USING DA COLE XI (Right) Location: 2OR 06 / ELDER OR Surgeons: Talib Serna MD 70yoM with HTN, former smoker, EtOH abuse (40 drinks/week), marijuana use, with history of ureteropelvic junction obstruction and ureteral reimplant who now presents for the above procedure. Anesthesia history significant for difficult DL with subsequent easy intubation with glidescope lowpro s4. >4 METs Allergies reviewed Relevant Problems /Renal (+) Hydronephrosis of right kidney (+) UPJ (ureteropelvic junction) obstruction (+) Ureteropelvic junction (UPJ) obstruction, right ROS Anesthesia: history of previous anesthesia. Cardiovascular: Does not have atrial fibrillation, CAD or past IL. hypertension: Does not have chest pain. Respiratory: no asthma: Neurological: no seizures: Did not have a cerebrovascular accident.Does not have TIA. Musculoskeletal: arthritis. Does not have cervical spine limited mobility. Gastrointestinal: Does not have GERD. Genitourinary: renal calculi. Hematological/Lymphatic: History of no DVT. History of no pulmonary embolism. Endocrine/Metabolic: Does not have carcinoid tumors. Clinical information reviewed: Med Hx Tobacco Allergies Surg Hx NPO Status Physical Exam Airway Mallampati: II Mouth opening: limited TM distance: >3 FB Neck ROM: full Cardiovascular Rhythm: regular Rate: normal Dental - normal exam Pulmonary Breath sounds clear to auscultation Neurological Oriented: normal to time, normal to place and normal to person and oriented to person, place and time Skin Musculoskeletal Extremities Anesthesia Plan ASA 3 Plan was reviewed with: COSMETICIAN APPRENTICE Anesthesia technique(s) discussed with the patient/family: general Anesthesia plan agreed upon was: general Anesthetic plan and risks discussed with patient. Use of blood products discussed with patient who consented to blood products. Additional Equipment Requests Cosigned by Benito Rosenbaum DO at 03/17/2025 10:39 PM EDT Associated attestation - Benito Rosenbaum DO - 03/17/2025 10:39 PM EDT I agree with the findings and care plan documented in the preprocedure evaluation note. documented in this encounter Plan of Treatment Upcoming Encounters Date Type Department Care Team (Latest Contact Info) Description 05/17/2025 3:05 PM EDT Hospital Encounter [facility] ROOM [address] [place] [address] Talib Serna MD [address] [facility] [address] [place] [address] 05/17/2025 3:05 PM EDT - 05/17/2025 4:35 PM EDT Surgery [facility] O[facility]ATING ROOM [address] [place] [address] Talib Serna MD [address] [facility] [address] [place] [address] URETEROSCOPY, WITH BIOPSY WITH POSSIBLE R URETERAL STENT EXCHANGE [08299 (CPT )] 06/17/2025 12:00 PM EDT Appointment [facility] [address] [place] [address] 06/17/2025 1:30 PM EDT Office Visit Medical Office Building Urology [address] [facility], [address] [place] [address] Talib Serna MD [address] [facility] [address] [place] [address] 10/21/2025 11:00 AM EST Office Visit [facility] [address] [place] [address] Mayi Ballard MD [address] [facility] [address] [place] [address] Scheduled Procedures Name Priority Associated Diagnoses Date/Ti me URETEROSCOPY, WITH BIOPSY Ureteropelvic junction (UPJ) obstruction, right 05/17/2025 3:05 PM EDT documented as of this encounter Procedures Procedure Name Priority Date/Time Associated Diagnosis Comments PB ANESTHESIA PLACEHOLDER Routine 03/17/2025 9:42 PM EDT [place] AN ELECTIVE ENDOTRACHEAL AIRWAY Routine 03/17/2025 9:42 PM EDT documented in this encounter Results * [place] AN ELECTIVE ENDOTRACHEAL AIRWAY, PB ANESTHESIA PLACEHOLDER (03/17/2025 9:42 PM EDT) Narrative Benito Rosenbaum DO - 03/17/2025 9:42 PM EDT Benito Rosenbaum DO 03/17/2025 10:40 PM Airway Date/Time: 03/17/2025 9:42 PM Reason: elective Airway not difficult General Information and Staff Patient location during procedure: OR Anesthesiologist: Benito Rosenbaum DO Resident: Rick Ashley MD Performed: Anesthesiologist Patient Condition Indications for airway management: anesthesia Patient position: sniffing Final Airway Details Final airway type: endotracheal airway Successful airway: ETT Cuffed: yes Successful intubation technique: direct laryngoscopy Adjuncts used in placement: intubating stylet Endotracheal tube insertion site: oral Blade: Jennifer Blade size: #4 ETT size (mm): 7.5 Cormack-Lehane Classification: grade IIb - view of arytenoids or posterior of glottis only Placement verified by: chest auscultation and capnometry Measured from: teeth ETT to teeth (cm): 23 Additional Comments Atraumatic. No change to dentition. History of intubation with use of glidescope. DL with 2b view initially unsuccessful, reattempted by anesthesiologist and successful pass of ETT with same view Benito Rosenbaum DO ANESTHESIA ORDERABLES Final Re sult documented in this encounter Visit Diagnoses Not on filedocumented in this encounter Administered Medications Inactive Administered Medications - up to 3 most recent administrations Medication Order MAR Action Action Date Dose Rate Site dexamethasone (Decadron) injection Intravenous, As needed, Starting on Sat03/17/25 at 2145, Until Sat03/17/25 at 2250, Routine, Anesthesia Intraprocedure Given 03/17/2025 9:45 PM EDT 4 mg fentaNYL (Sublimaze) injection Intravenous, As needed, Starting on Sat03/17/25 at 2141, Until Sat03/17/25 at 2250, Routine, Anesthesia Intraprocedure Given 03/17/2025 9:41 PM EDT 100 mcg gentamicin (Garamycin) 340 mg in sodium chloride 0.9 % 100 mL IVPB 340 mg (5 mg/kg 68 kg), Intravenous, Once, 1 dose, On Sat03/17/25 at 2145, Routine New Bag 03/17/2025 9:42 PM EDT 340 mg lactated Ringer's infusion 84 mL/hr, Intravenous, Continuous, Starting on Sat03/17/25 at 1830, Until Brittney 03/18/25 at 0912, Routine New Bag 03/17/2025 11:35 PM EDT 84 mL/hr 84 mL/hr New Bag 03/17/2025 9:39 PM EDT New Bag 03/17/2025 6:47 PM EDT 84 mL/hr 84 mL/hr lidocaine PF (Xylocaine) 2 % injection Intravenous, As needed, Starting on Sat03/17/25 at 2141, Until Sat03/17/25 at 2250, Routine, Anesthesia Intraprocedure Given 03/17/2025 9:41 PM EDT 100 mg ondansetron (Zofran) injection Intravenous, As needed, Starting on Sat03/17/25 at 2216, Until Sat03/17/25 at 2250, Routine, Anesthesia Intraprocedure Given 03/17/2025 10:16 PM EDT 4 mg phenylephrine in NS (Vinny-Synephrine) 100 mcg/mL prefilled syringe Intravenous, As needed, Starting on Sat03/17/25 at 2155, Until Sat03/17/25 at 2250, Routine, Anesthesia Intraprocedure Given 03/17/2025 10:10 PM EDT 100 mcg Given 03/17/2025 9:55 PM EDT 100 mcg propofol (Diprivan) injection Intravenous, As needed, Starting on Sat03/17/25 at 2141, Until Sat03/17/25 at 2250, Routine, Anesthesia Intraprocedure Given 03/17/2025 9:41 PM EDT 200 mg rocuronium (ZeMuron) injection Intravenous, As needed, Starting on Sat03/17/25 at 2145, Until Sat03/17/25 at 2250, Routine, Anesthesia Intraprocedure Given 03/17/2025 9:45 PM EDT 30 mg succinylcholine (Anectine) injection Intravenous, As needed, Starting on Sat03/17/25 at 2141, Until Sat03/17/25 at 2250, Routine, Anesthesia Intraprocedure Given 03/17/2025 9:41 PM EDT 100 mg sugammadex (Bridion) 100 MG/ML injection Intravenous, As needed, Starting on Sat03/17/25 at 2224, Until Sat03/17/25 at 2250, Routine, Anesthesia Intraprocedure Given 03/17/2025 10:24 PM EDT 200 mg documented in this encounter Additional Health Concerns Assessment Noted Time A fall risk assessment has been complete d for the patient 03/16/2025 9:45 AM EDT A Body Mass Index follow-up plan has been documented for the patient 03/19/2025 1:33 PM EDT documented as of this encounter Care Teams Strickler Attendant Relationship Specialty Start Date End Date Thiago Gregory APRN [address] [place] [address] PCP - General 03/20/24 Doug Bill, RN ```````````````````````CH - PACU - MAJOR, PAV A Registered Nurse 12/23/24 documented as of this encounter
--- OUTSIDE RECORDS SUMMARY | 2025-03-17 22:00 | XMS_ITS | Encounter Summary ---
Author Organization Healthcare Address [address] [id number] Care Team Providers Care Oral And Maxillofacial Surgery Name Role Phone Thiago Gregory APRN Primary Care Provider [phone] Doug Bill RN Unavailable Unavailable Reason for Visit * Reason Comments Flank Pain * Auth/Cert (Routine) Specialty Diagnoses / Procedures Referred By Contac t Referred To Contact Diagnoses Ureteropelvic junction (UPJ) obstruction, right removal of stent, pain when urinating Talib Serna MD [address] [address] Phone: tel: fax: [facility] H Inpatient [address] [place] [address] Phone: tel: Referral ID Status Reason Start Date Expiration Date Visits Re quested Visits Authorized [id number] 1 1 Encounter Details Date Type Department Care Team (Late st Contact Info) Description 03/17/2025 10:00 PM EDT - 03/18/2025 12:30 AM EDT Surgery [facility] A OPERATING ROOM [address] [place] [address] Talib Serna MD [address] [address] URETEROSCOPY, COMPLEX [82995 (CPT )] Surgery Details Date/Time Status Location [...] in the past 12 m [facility], were you homeless or living in a intermediate (including now)? No 12/07/2024 AUDIT-C Answer Date [...] drink first t nigel in the morning (EYE-SUPERVISOR TESTING) to steady your nerves or to get [...] confirm your location ahead of your appointment) [facility] Urology Department Clinic at [place] [address] [facility], 2nd Floor, [facility], [address] [place] [address] Clinic After Hours [facility] Office Building Urology Clinic [address] [place] [address] Clinic After Hours documented in this encounter [...] Note Parth Pratt 70 y.o. male CSN: [id number] Admission: 03/17/2025 5:05 PM Primary Problem: Ureteropelvic junction (UPJ) obstruction, right Primary Peanut Shaker: Assistance Available at Discharge: Family/Peanut Shaker(s) Willingness Assessed to care for patient at home: Yes Family/Peanut Shaker(s) Readiness Assessed to care for patient at [...] first notice.) Follow-up: Costa Sands MD [address] [facility] [address] Discharge Transportation: Transportation Anticipated: family or friend [...] above DC plan. In??s Estefanía. APRIL Alvarado, mobile manager * Consults - Bisi Chavez RD [...] name and Address: Thiago Gregory APRN [address] [facility] / [place] [address] Referring provider name and address: Costa Sands MD [address] [place] [id number] Chief Concern, Brief History of Present Illness, [...] Your Medications These medications were sent to [facility] - [place], [place] - [id number] [place] [address] sulfamethoxazole-trimethoprim 800-160 MG tablet Discharge Diagnosis Medical [...] confirm your location ahead of your appointment) [facility] Urology Department Clinic at [facility] [address], 2nd Floor, Wing [address], [address] [place] [address] Clinic After Hours [facility] Office Building Urology Clinic [address] [place] [address] Clinic After Hours Outpatient Follow-Up Future Appointments [...] Jesus MD - 03/18/2025 11:32 AM EDT [facility] Urology Inpatient Progress Note Primary [...] PM EDT Operative Note Date: 03/17/25 Location: [facility] Name: Parth rPatt, : 1955, Diagnoses: Pre-op Diagnosis Ureteropelvic junction (UPJ) obstruction, right Post-op Diagnosis Ureteropelvic junction (UPJ) obstruction, right Procedure(s): Cystoscopy with retrograde pyelogram Right diagnostic ureteroscopy Right ureteral stent placement Attending Surgeon(s): * Talib Serna - Primary Hse Coordinator(s): * Allan Daley MD - Resident [...] Necessity Reasons Recent surgery contiguous with urinary tract/CELL STRIPPER FINAL/colorectal 03/17/252234 Ureteral Drain/Stent Right ureter 7 Fr. (Active) Implants Type Name Action Serial No. Stent STENT URETERAL [employer]A [employer] MONOFILAMENT [id number]/[id number] - [id number] Implanted Specimen: Specimens ID Source Frozen? A [...] MD Consult ordered by: Michelle Craig MD [facility] Urology Consult Note 03/17/25 Service [...] to persistent pain prompting him to visit [facility] ED. At [facility] ED, labs [...] for diagnostic ureteroscopy, possible stent versus [facility]NT [facility] patient is agreeable. Does not wish to pursue nephrectomy at this immediate time. He is NPO. Plan: - to OR for right diagnostic ureteroscopy, retrograde pyelogram, possible stent placement, possiblenephrostomy tube placement - NPO - Admit to urology - [facility] - Trend labs Allan Daley [...] History: Procedure Laterality Date COLONOSCOPY CYSTOSCOPY 12/15/2024 ([facility]) cystosopy, ANTEGRADE URETEROSCOPY, right nephrostomy tube exchange (Ureter) URETEROSCOPY (Right) INSERTION OR REPLACEMENT, NEPHROSTOMY TUBE (Right) HIP ARTHROPLASTY Bilateral HIP SURGERY Right to replace recalled loli device KIDNEY STONE SURGERY LIVER BIOPSY NEPHROSTOMY 12/04/2024 ([facility]) INSERTION OR REPLACEMENT, NEPHROSTOMY TUBE (Right) PROSTATE BIOPSY SHOULDER SURGERY Left cadaver tendon placed in shoulder TONSILLECTOMY UPPER GASTROINTESTINAL ENDOSCOPY URETEROSCOPY 11/30/2024 ([facility]) URETEROSCOPY, RIGHT RETROGRADE (Right) CYSTOSCOPY (Bladder) [...] Mood normal. EASI ?? Total Score: 0 [place] Coma Scale Score: 15 Mini Nutritional Screening [...] 03/17/25 182 Do NOT transfer patient to [facility] without chief resident or attending apporval Until [...] (Hibiclens). Acknowledged ALLAN DALEY 03/17/25 182 Void exchange underwriting consultant to OR Once Acknowledged ALLAN DALEY 03/17/25 [...] History: Procedure Laterality Date COLONOSCOPY CYSTOSCOPY 12/15/2024 ([facility]) cystosopy, ANTEGRADE URETEROSCOPY, right nephrostomy tube exchange (Ureter) URETEROSCOPY (Right) INSERTION OR REPLACEMENT, NEPHROSTOMY TUBE (Right) HIP ARTHROPLASTY Bilateral HIP SURGERY Right to replace recalled loli device KIDNEY STONE SURGERY LIVER BIOPSY NEPHROSTOMY 12/04/2024 ([facility]) INSERTION OR REPLACEMENT, NEPHROSTOMY TUBE (Right) PROSTATE BIOPSY SHOULDER SURGERY Left cadaver tendon placed in shoulder TONSILLECTOMY UPPER GASTROINTESTINAL ENDOSCOPY URETEROSCOPY 11/30/2024 ([facility]) URETEROSCOPY, RIGHT RETROGRADE (Right) CYSTOSCOPY (Bladder) [...] EDT Hospital Encounter [facility] OPERATING ROOM [address] [place] [phone] Talib Serna MD [address] [facility] [address] [place] [address] 05/17/2025 3:05 PM EDT - 05/17/2025 4:35 PM EDT Surgery [facility] A OPERATING ROOM [address] [place] [phone] Talib Serna MD [address] [address] URETEROSCOPY, WITH BIOPSY WITH POSSIBLE R URETERAL STENT EXCHANGE [87791 (CPT )] 06/17/2025 12:00 PM EDT Appointment [facility] [address] [place] [phone] 06/17/2025 1:30 PM EDT Office Visit Medical Office Building Urology [address] [facility], [address] [place] [phone] Talib Serna MD [id number] [place] [address] 10/21/2025 11:00 AM EST Office Visit [facility] [address], 2nd [place] [phone] Mayi Ballard MD [address] [facility] [address] [place] [phone] Scheduled Procedures Name Priority Associated Diagnoses Date/Ti [...] PM EDT Ureteropelvic junction (UPJ) obstruction, right [place] CYSTO/URETERO/PYELOSCO PY, DX 03/17/2025 9:21 PM EDT [...] Basic metabolic panel (03/18/2025 4:09 AM EDT) [facility] Glucose, Plasma 139(H) 74 - 99 mg/dL 03/18/2025 4:56 AM EDT [facility] BUN, Plasma 9 8 - 23 mg/dL 03/18/2025 4:56 AM EDT [facility] Creatinine, Plasma 0.68(L) 0.70 - 1.20 mg/dL 03/18/2025 4:56 AM EDT [facility] BUN/Creatinine Ratio 13 03/18/2025 4:56 AM EDT [facility] Sodium, Plasma 138 136 - 145 mmol/L 03/18/2025 4:56 AM EDT [facility] Potassium, Plasma 4.6 3.6 - 4.9 mmol/L 03/18/2025 4:56 AM EDT [facility] Chloride, Plasma 104 97 - 107 mmol/L 03/18/2025 4:56 AM EDT [facility] CO2, Plasma 24 22 - 29 mmol/L 03/18/2025 4:56 AM EDT [facility] Anion Gap 10 6 - 16 mmol/L 03/18/2025 4:56 AM EDT [facility] Total Calcium, Plasma 9.4 8.9 - 10.2 mg/dL 03/18/2025 4:56 AM EDT [facility] eGFRcr 99.4 mL/min/1.7 3m*2 03/18/2025 4:56 AM EDT [facility] Comment:Reported eGFRcr in m L/min/1.73m2 is based the CKD-EPI 2020 equation that does not use a race coefficient. Blood Venous blood specimen / Unknown Venipuncture / Unknown 03/18/2025 4:09 AM EDT 03/18/2025 4:27 AM EDT us Talib Serna MD LAB BLOOD ORDERABLES Final Res ult [facility] [address] [place] [address] * (ABNORMAL) Hemogram (CBC) (03/18/2025 4:09 AM EDT) WBC Count 17.56(H) 3.70 - 10.30 10*3/uL LAB HEMATOLOGY METHOD 03/18/2025 4:38 AM EDT [facility] RBC Count 4.47(L) 4.60 - 6.10 10*6/uL LAB HEMATOLOGY METHOD 03/18/2025 4:38 AM EDT [facility] HGB 13.4(L) 13.7 - 17.5 g/dL LAB HEMATOLOGY METHOD 03/18/2025 4:38 AM EDT [facility] HCT 40.3 40.0 - 51.0 % LAB HEMATOLOGY METHOD 03/18/2025 4:38 AM EDT [facility] Platelet Count 201 155 - 369 10*3/uL LAB HEMATOLOGY METHOD 03/18/2025 4:38 AM EDT [facility] MCV 90 79 - 98 fL LAB HEMATOLOGY METHOD 03/18/2025 4:38 AM EDT [facility] MCH 30.0 26.0 - 32.0 pg LAB HEMATOLOGY METHOD 03/18/2025 4:38 AM EDT [facility] MCHC 33.3 30.7 - 35.5 g/dL LAB HEMATOLOGY METHOD 03/18/2025 4:38 AM EDT [facility] RDW 13.2 11.5 - 14.5 % LAB HEMATOLOGY METHOD 03/18/2025 4:38 AM EDT [facility] MPV 10.8 8.8 - 12.5 fL LAB HEMATOLOGY METHOD 03/18/2025 4:38 AM EDT [facility] nRBC 0.0 <=0.0 per 100 WBCs LAB HEMATOLOGY METHOD 03/18/2025 4:38 AM EDT [facility] Blood Venous blood specimen / Unknown Venipuncture / Unknown 03/18/2025 4:09 AM EDT 03/18/2025 4:27 AM EDT us Talib Serna MD LAB BLOOD ORDERABLES Final Res ult Performing Organization Address City/[facility]/ZIP Co de Phone Number [facility] [address] [place] [address] * [place] Less than 1 Hour Intraoperative [...] CFU/mL Lucie albicans(A) 03/20/2025 7:41 AM EDT [facility] Comment: This isolate has [...] ORD ERABLES Final Result Performing Organization Address [facility] Co de Phone Number [facility] [address] [place] [address] * SEND OMA MESSAGE (03/17/2025 6:28 PM EDT) Urine Urine specimen obtained by clean catch procedure / Unknown Non-blood Collection / Unknown 03/17/2025 6:28 PM EDT 03/17/2025 7:12 PM EDT Michelle Craig MD LAB URINE ORDERABLES Final Re sult Performing Organization Address [facility] Co de Phone Number [facility] [address] [place] [address] * (ABNORMAL) Urine Culture (03/17/2025 6:28 PM EDT) Culture 10,000 - 100,000 CFU/mL Lucie albicans(A) 03/20/2025 7:40 AM EDT [facility] Comment: This isolate has [...] OR DERABLES Final Result Performing Organization Address City/[facility]/ZIP Co de Phone Number [facility] [address] [place] [address] * Urinalysis Microscopic Examination (03/17/2025 6:28 PM EDT) Urine Urine specimen obtained by clean catch procedure / Unknown Non-blood Collection / Unknown 03/17/2025 6:28 PM EDT 03/17/2025 6:43 PM EDT Michelle Craig MD LAB URINE ORDERABLES Final Re sult Performing Organization Address City/[facility]/ZIP Co de Phone Number [facility] [address] [place] [address] * Urine Barlow Panel (03/17/2025 6:28 PM EDT) Extra Sent for Culture 03/17/2025 9:02 PM EDT [facility] Urine Urine specimen obtained by clean catch procedure / Unknown Non-blood Collection / Unknown 03/17/2025 6:28 PM EDT 03/17/2025 7:12 PM EDT us Michelle Craig MD LAB URINE ORDERABLES Final Re sult Performing Organization Address [facility] Co de Phone Number [facility] [address] [place] [address] * (ABNORMAL) Urinalysis with reflex microscopic (Culture NOT Included) (03/17/2025 6:28 PM EDT) Color, Urine Yellow LAB URINALYSIS - AUTOMATED METHOD 03/17/2025 7:38 PM EDT [facility] Clarity, Urine Cloudy LAB URINALYSIS - AUTOMATED METHOD 03/17/2025 7:38 PM EDT [facility] Spec [place], Urine >1.030(H) 1.005 - 1.030 LAB URINALYSIS - AUTOMATED METHOD 03/17/2025 7:38 PM EDT [facility] pH, Urine 7.5 5.0 - 8.0 LAB URINALYSIS - AUTOMATED METHOD 03/17/2025 7:38 PM EDT [facility] Protein, Urine 30(A) Negative mg/dL LAB URINALYSIS - AUTOMATED METHOD 03/17/2025 7:38 PM EDT [facility] Glucose, Urine Negative Negative mg/dL LAB URINALYSIS - AUTOMATED METHOD 03/17/2025 7:38 PM EDT [facility] Ketones, Urine Trace(A) Negative mg/dL LAB URINALYSIS - AUTOMATED METHOD 03/17/2025 7:38 PM EDT [facility] Blood, Urine Moderate(A) Negative LAB URINALYSIS - AUTOMATED METHOD 03/17/2025 7:38 PM EDT [facility] Bilirubin, Urine Negative Negative LAB URINALYSIS - AUTOMATED METHOD 03/17/2025 7:38 PM EDT [facility] Urobilinogen, Urine 1.0 0.2 to 1.0 mg/dL LAB URINALYSIS - AUTOMATED METHOD 03/17/2025 7:38 PM EDT [facility] Leukocytes, Urine Large(A) Negative LAB URINALYSIS - AUTOMATED METHOD 03/17/2025 7:38 PM EDT [facility] Nitrite, Urine Negative Negative LAB URINALYSIS - AUTOMATED METHOD 03/17/2025 7:38 PM EDT [facility] RBC, Urine 11 - 15(A) 0 to 3 /HPF LAB URINALYSIS - AUTOMATED METHOD 03/17/2025 7:38 PM EDT [facility] Comment:This result was prev iously suppressed from the chart. WBC, Urine >50(A) 0 to 5 /HPF LAB URINALYSIS - AUTOMATED METHOD 03/17/2025 7:38 PM EDT [facility] Comment:This result was prev iously suppressed from the chart. Squamous Epithelial Cells 0 - 2 0 to 5 /HPF LAB URINALYSIS - AUTOMATED METHOD 03/17/2025 7:38 PM EDT [facility] Comment:This result was prev iously suppressed from the chart. Hyaline Casts 3 - 5 0 to 5 /LPF LAB URINALYSIS - AUTOMATED METHOD 03/17/2025 7:38 PM EDT [facility] Comment:This result was prev iously suppressed from the chart. Bacteria, Urine Present Negative LAB URINALYSIS - AUTOMATED METHOD 03/17/2025 7:38 PM EDT [facility] Comment:This result was prev iously suppressed from the chart. Urine Urine specimen obtained by clean catch procedure / Unknown Non-blood Collection / Unknown 03/17/2025 6:28 PM EDT 03/17/2025 6:43 PM EDT us Michelle Craig MD LAB URINE ORDERABLES Final Re sult [facility] [address] [place] [address] * (ABNORMAL) CMP (03/17/2025 6:28 PM EDT) Glucose, Plasma 107(H) 74 - 99 mg/dL 03/17/2025 7:07 PM EDT [facility] BUN, Plasma 11 8 - 23 mg/dL 03/17/2025 7:07 PM EDT [facility] Creatinine, Plasma 0.75 0.70 - 1.20 mg/dL 03/17/2025 7:07 PM EDT [facility] BUN/Creatinine Ratio 15 03/17/2025 7:07 PM EDT [facility] Sodium, Plasma 137 136 - 145 mmol/L 03/17/2025 7:07 PM EDT [facility] Potassium, Plasma 4.1 3.6 - 4.9 mmol/L 03/17/2025 7:07 PM EDT [facility] Chloride, Plasma 102 97 - 107 mmol/L 03/17/2025 7:07 PM EDT [facility] CO2, Plasma 23 22 - 29 mmol/L 03/17/2025 7:07 PM EDT [facility] Anion Gap 12 6 - 16 mmol/L 03/17/2025 7:07 PM EDT [facility] Total Calcium, Plasma 9.0 8.9 - 10.2 mg/dL 03/17/2025 7:07 PM EDT [facility] Total Protein 6.9 6.3 - 7.9 g/dL 03/17/2025 7:07 PM EDT [facility] Albumin, Plasma 3.8 3.5 - 5.2 g/dL 03/17/2025 7:07 PM EDT [facility] AST, Plasma 14 10 - 50 U/L 03/17/2025 7:07 PM EDT [facility] ALT, Plasma 13 10 - 50 U/L 03/17/2025 7:07 PM EDT [facility] Alkaline Phosphatase, Plasma 66 40 - 115 U/L 03/17/2025 7:07 PM EDT [facility] Total Bilirubin, Plasma 0.7 0.2 - 1.1 mg/dL 03/17/2025 7:07 PM EDT [facility] eGFRcr 96.5 mL/min/1.7 3m*2 03/17/2025 7:07 PM EDT [facility] Comment:Reported eGFRcr in m L/min/1.73m2 is based the CKD-EPI 2020 equation that does not use a race coefficient. Blood Venous blood specimen / Unknown Venipuncture / Unknown 03/17/2025 6:28 PM EDT 03/17/2025 6:43 PM EDT us Michelle Craig MD LAB BLOOD ORDERABLES Final Re sult [facility] [address] [place] [address] * (ABNORMAL) CBC w/diff (03/17/2025 6:28 PM EDT) WBC Count 15.45(H) 3.70 - 10.30 10*3/uL LAB HEMATOLOGY METHOD 03/17/2025 6:48 PM EDT [facility] RBC Count 4.48(L) 4.60 - 6.10 10*6/uL LAB HEMATOLOGY METHOD 03/17/2025 6:48 PM EDT [facility] HGB 13.5(L) 13.7 - 17.5 g/dL LAB HEMATOLOGY METHOD 03/17/2025 6:48 PM EDT [facility] HCT 39.9(L) 40.0 - 51.0 % LAB HEMATOLOGY METHOD 03/17/2025 6:48 PM EDT [facility] Platelet Count 179 155 - 369 10*3/uL LAB HEMATOLOGY METHOD 03/17/2025 6:48 PM EDT [facility] MCV 89 79 - 98 fL LAB HEMATOLOGY METHOD 03/17/2025 6:48 PM EDT [facility] MCH 30.1 26.0 - 32.0 pg LAB HEMATOLOGY METHOD 03/17/2025 6:48 PM EDT [facility] MCHC 33.8 30.7 - 35.5 g/dL LAB HEMATOLOGY METHOD 03/17/2025 6:48 PM EDT [facility] RDW 13.2 11.5 - 14.5 % LAB HEMATOLOGY METHOD 03/17/2025 6:48 PM EDT [facility] MPV 11.1 8.8 - 12.5 fL LAB HEMATOLOGY METHOD 03/17/2025 6:48 PM EDT [facility] nRBC 0.0 <=0.0 per 100 WBCs LAB HEMATOLOGY METHOD 03/17/2025 6:48 PM EDT [facility] Differential Type Automated LAB HEMATOLOGY METHOD 03/17/2025 6:48 PM EDT [facility] Neutrophils % 77 % LAB HEMATOLOGY METHOD 03/17/2025 6:48 PM EDT [facility] Lymphocytes % 11 % LAB HEMATOLOGY METHOD 03/17/2025 6:48 PM EDT [facility] Monocytes % 10 % LAB HEMATOLOGY METHOD 03/17/2025 6:48 PM EDT [facility] Eosinophils % 1 % LAB HEMATOLOGY METHOD 03/17/2025 6:48 PM EDT [facility] Basophils % 0 % LAB HEMATOLOGY METHOD 03/17/2025 6:48 PM EDT [facility] Immature Granulocytes % 1 % LAB HEMATOLOGY METHOD 03/17/2025 6:48 PM EDT [facility] Neutrophils Absolute 11.98(H) 1.60 - 6.10 10*3/uL LAB HEMATOLOGY METHOD 03/17/2025 6:48 PM EDT [facility] Lymphocytes Absolute 1.64 1.20 - 3.90 10*3/uL LAB HEMATOLOGY METHOD 03/17/2025 6:48 PM EDT [facility] Monocytes Absolute 1.57(H) 0.30 - 0.90 10*3/uL LAB HEMATOLOGY METHOD 03/17/2025 6:48 PM EDT [facility] Eosinophils Absolute 0.15 0.00 - 0.50 10*3/uL LAB HEMATOLOGY METHOD 03/17/2025 6:48 PM EDT [facility] Basophils Absolute 0.03 0.00 - 0.10 10*3/uL LAB HEMATOLOGY METHOD 03/17/2025 6:48 PM EDT [facility] Immature Granulocytes Absolute 0.08(H) 0.00 - 0.06 10*3/uL LAB HEMATOLOGY METHOD 03/17/2025 6:48 PM EDT [facility] Blood Venous blood specimen / Unknown Venipuncture / Unknown 03/17/2025 6:28 PM EDT 03/17/2025 6:43 PM EDT Narrative [facility] - 03/17/2025 6:48 PM EDT Therapeutic decision making should be based on absolute values, rather than percentages. us Michelle Craig MD LAB BLOOD ORDERABLES Final Re sult [facility] [address] [place] [address] documented in this encounter Visit Diagnoses Diagnosis [...] Julieth Pablo RN)2346 (Given - Provider: Nenita Spears, FARTUN) 0629 (Given - Provider: Nenita Spears RN)1258 (Not Given - Provider: Tami Ramírez RN - Reason: Patient/family refused) cefTRIAXone (Rocephin) 1 g in sodium chloride 0.9% 100 mL IVPB (vial adapter required) (CANCELED) 1 g, Intravenous, Every 24 hours, First dose on Sat03/17/25 at 1840, Until Discontinued, Routine 1919 (New Bag - Provider: Urszula Sawyer, FARTUN)2039 (Stopped - Provider: Urszula Sawyer, FARTUN) enoxaparin (Lovenox) syringe 40 mg 40 mg, Subcutaneous, Every 24 hours scheduled, First dose on Sat03/17/25 at 1830, Until Discontinued, Routine 191 (Given - Provider: Urszula Sawyer RN)2121 (MAR Hold - Provider: Automatic Transfer Provider - Reason: Patient in procedure)2341 (MAR Unhold - Provider: Automatic Transfer Provider) 0827 [...] 1 dose, On Sat03/17/25 at 2145, Routine 214 (New Bag - Provider: Rick Ashley MD) [...] Routine 1855 (Given - Provider: Krystal Rabago RN)2122 (NOV Hold - Provider: Automatic Transfer Provider - Reason: Patient in procedure)2341 (NOV Unhold - Provider: Automatic Transfer Provider) 0556 (Given - Provider: Khushi Manzano RN)1813 (Given - Provider: Julieth Pablo, FARTUN) 0707 (Given - Provider: Nenita Spears, FARTUN) sulfamethoxazole-trime thoprim (Bactrim DS) 800-160 MG per tablet 2 tablet 2 tablet, Oral, 2 times daily, 14 doses, First dose on Sat03/18/25 at 0900, Last dose on Sat03/24/25 at 2100, Routine 0827 (Given - Provider: Julieth Pablo, FARTUN)2144 (Given - Provider: Nenita Spears, FARTUN) 0822 (Given - Provider: Tami Ramírez RN) Continuous Medication Order 03/17/2025 03/18/2025 03/19/2025 lactated Ringer's infusion (CANCELED) 84 mL/hr, Intravenous, Continuous, Starting on Sat03/17/25 at 1830, Until Brittney 03/18/25 at 0912, Routine 1847 (New Bag - Provider: Krystal Rabago, RN)2136 (Stopped - Provider: Rick Ashley MD)2136 (Canceled Entry - Provider: Rick Ashley MD - Comment: Switch to gravity)2137 (Canceled Entry - Provider: Rick Ashley MD)2138 (New Bag - Provider: Rick Ashley MD)2334 (New Bag - Provider: Ann Singleton, FARTUN) [...] severe pain 184 (Given - Provider: Krystal Rabago, RN)2121 (MAR Hold - Provider: Automatic Transfer Provider - Reason: Patient in procedure)234 (MAR Unhold - Provider: Automatic Transfer Provider) ondansetron (Zofran) injection 4 mg 4 mg, Intravenous, Every 6 hours PRN, Starting on Sat03/17/25 at 1826, Until Sat03/19/25 at 1733, Routine, nausea, vomiting 2121 (MAR Hold - Provider: Automatic Transfer Provider - Reason: Patient in procedure)234 (MAR Unhold - Provider: Automatic Transfer Provider) oxyCODONE (Roxicodone) immediate release tablet 5 mg 5 mg, Oral, Every 4 hours PRN, Starting on Sat03/17/25 at 1826, Until Sat03/19/25 at 1733, Routine, severe pain 2121 ([facility] Hold - Provider: Automatic Transfer Provider - Reason: Patient in procedure)234 ([facility] Unhold - Provider: Automatic Transfer Provider) sodium chloride 0.9 % flush 10 mL(Linked Group 1) 10 mL, Intravenous, As needed, Starting on Sat03/17/25 at 1825, Until Sat03/19/25 at 1733, Routine, line care 2121 ([facility] Hold - Provider: Automatic Transfer Provider - Reason: Patient in procedure)2340 ([facility] Unhold - Provider: Automatic Transfer Provider) Linked [...] documented as of this encounter Care Teams Oral And Maxillofacial Surgery Relationship Specialty Start Date End Date Thiago Gregory APRN [address] [place] [address] PCP - General 03/20/24 Doug Bill, RN ```````````````````````CH - PACU - MAJOR, PAV A Registered Nurse 12/23/24 documented as of this encounter
--- OUTSIDE RECORDS SUMMARY | 2025-04-08 09:10 | XMS_ITS | Encounter Summary ---
Author Organization Healthcare Address [address] 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 Name Role Phone Thiago Gregory APRN Primary Care Provider [phone] Doug Bill RN Unavailable Unavailable Reason for Referral * Other Medical (Routine) - Pending Review Specialty Diagnoses / Procedures Referred By Contac t Referred To Contact Diagnoses Primary osteoarthritis of knees, bilateral Procedures Injection / Aspiration - Large Joint: bilateral knee Nik Winter MD [address] [place] [address] Phone: tel: fax: Referral ID Status Reason Start Date Expiration Date V isits Requested Visits Authorized [id number] Pending Review 04/08/2025 10/08/2026 1 1 Reason for Visit * Reason Comments Calcium pyrophosphate deposition disease Follow-up Encounter Details Date Type Department Care Team (Latest Contact Info) Description 04/08/2025 9:10 AM EDT [facility] Visit [facility] [address] [place] [address] Lianne Yañez, STEVEN [address] [place] [address] Calcium pyrophosphate deposition disease (Primary Dx); Primary osteoarthritis of knees, bilateral; Calculus of ureter Social History Tobacco Use Types Packs/Day Years [...] Date Recorded Patient Health Questionnaire-2 Score 0 04/08/2025 Hunger Vital Sign Answer Date Recorded Within [...] things needed for daily living? No 12/07/2024 PHQ-9 Answer Date Recorded Patient Health Questionnaire-9 Score 0 04/08/2025 Housing Stability Vital Sign Answer Christian e Recorded In the last 12 months, was t here a time when you were not able to pay the mortgage or rent on time? No 12/07/2024 In the past 12 months, how m any times have you moved where you were living? 0 12/07/2024 At any time in the past 12 m [facility], were you homeless or living in a prison (including now)? No 12/07/2024 AUDIT-C Answer Date Recorded Q1: How often do you have a drink containing alc ohol? 2-3 times a week 04/08/2025 Q2: How many drinks containi ng alcohol do you have on a typical day when you are drinking? 3 or 4 04/08/2025 Q3: How often do you have si x or more drinks on one occasion? 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 0 03/17/2025 CAGE Questionnaire Score 0 025 Utilities Answer Date Recorded In the past 12 months has [employer], gas, oil, or water Office Center threatened to shut off services in your home? No 12/07/2024 Sex and Gender Information Value Date Recorded Sex Assigned at Male 10/03/2024 11:15 AM EST Legal Sex Male 6:18 PM EDT Gender Identity Not on file Sexual Orientation Not on file documented as of this encounter Last Filed Vital Signs Vital Sign Reading Time Taken Comments Blood Pressure 172/97 04/08/2025 11:40 AM EDT provider notified, advised to take his meds when he gets home Pulse 70 04/08/2025 9:43 AM EDT Temperature 36.8 C (98.2 F) 04/08/2025 9:43 AM EDT Respiratory Rate 18 04/08/2025 9:43 AM EDT Oxygen Saturation 98% 04/08/2025 9:4 3 AM EDT Inhaled Oxygen Concentration - - Weight 70 kg (154 lb 5.2 oz) 04/08/2025 9:43 AM EDT Height 177.8 cm (5' 10 ) 04/08/2025 9:4 3 AM EDT Body Mass Index 22.14 04/08/2025 9:43 AM EDT documented in this encounter Functional Status * AUDIT-C Score Answer Date of Assessment Author 4 04/08/2025 9:45 AM Zahida Wood RN * Question Answer Date of Assessment Author Q1: How often do you have a drink containing alcohol? 2-3 times a week 04/08/2025 9:45 AM Mattie Wood RN Q2: How many drinks containing alcohol do you have on a typical day when you are drinking? 3 or 4 04/08/2025 9:45 AM Mattie Wood RN Q3: How often do you have six or more drinks on one occasion? Never 04/08/2025 9:45 AM Mattie Wood RN * Over the past 2 weeks, how often have you been bothered by any of the following problems? Question Answer Date of Assessment Author Little interest or pleasure in doing things Not at all 04/08/2025 9:53 AM Mattie Wood RN Feeling down, depressed, or hopeless Not at all 04/08/2025 9:53 AM Mattie Wood RN Patient Health Questionnaire -2 Score 0 04/08/2025 9:53 AM Mattie Wood RN * Question Answer Date of Assessment Author Trouble falling or staying asleep, or sleeping too much Not at all 04/08/2025 9:53 AM Eugenie Wood RN Feeling tired or having soumya le energy Not at all 04/08/2025 9:53 AM Mattie Wood RN Poor appetite or overeating Not at all 04/08/2025 9: 53 AM Mattie Wood RN Feeling bad about yourself - or that you are a failure or have let yourself or your family down Not at all 04/08/2025 9:53 AM Mattie Wood RN Trouble concentrating on things, such as reading the newspaper or watching television Not at all 04/08/2025 9:53 AM Mattie Wood RN Moving or speaking so slowly that other people could have noticed? Or the opposite - being so fidgety or restless that you have been moving around a lot more than usual. Not at all 04/08/2025 9:53 AM Mattie Wood RN Thoughts that you would be better off or hurting yourself in some way Not at all 04/08/2025 9:53 AM KAYLANT Mattie Rueda RN Patient Health Questionnaire -9 Score 0 04/08/2025 9:53 AM EDT Mattie Rueda RN * If you checked off any problems on this questionnaire so far, Question Answer Date of Assessment Author How difficult have these problems made it for you to do your work, take care of things at home, or get along with other people? Not difficult at all 04/08/2025 9:53 AM EDT Mattie Rueda RN documented as of this encounter Miscellaneous Notes * Progress Notes - Lianne Yañez, STEVEN - 04/08/2025 9:10 AM EDT Associated Order(s): Injection / Aspiration - Large Joint: bilateral knee Post-Procedure Diagnose(s): Primary osteoarthritis of knees, bilateral Rheumatology follow up office visit note Chief complaint: Parth Pratt is a 70 y.o. male who is here for a follow up of CPPD disease. HPI: Mr. Pratt is a 70-year-old gentleman with a past medical history significant for hypertension, IBS, hep C and sleep disorder who had established care with Rheumatology when he was noted to having bilateral shoulder pain is now coming for a follow up of his CPPD disease. Based on prior documentation,it appears that his symptoms began in 2022 with symptoms predominantly in the right shoulder with limited range of motion especially external rotation. He subsequently developed pain in the left shoulder as well along with pain in both wrists. He subsequently saw Orthopedic who prescribed him a Medrol Dose pack which helped his symptoms. He was subsequently referred to Rheumatology when he continued to have pain and imaging showed signs suggestive of CPPD arthritis. After a established care with us, patient has been treated with colchicine for his CPPD disease. Hewas initially tried on celecoxib but only had about 50% improvement in symptoms and therefore colchicine was tried. He noted to having significant change in his joint pain symptoms since he started taking colchicine. Since his last visit, patient has had an unfortunate last few months with numeroushospital visits for management of his right-sided hydronephrosis. Patient has undergone numerous stenting and restenting procedures along with pyeloplasty in order to address his right-sided hydronephrosis which is likely secondary to strictures. His most recent stent was placed on 03/16/2025. During these hospital admissions, patient stated that colchicine was held but he noted to compliance while he was on. He is due to follow up with Urology on May 17 for stent removal and further management. At today's evaluation, patient seems to be doing well overall. He did note to having bilateral shoulder and bilateral knee pain. He states that his knees are hurting more than a shoulders today and is requesting intra-articular shots to help with the pain as done in the past. He otherwise denies any recent fevers, peripheral joint and woman, oral ulcers, photosensitivity, urinary or bowel symptoms. 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 PMH: Past Medical History[1] FHX: Family History[2] SocHx: Social History Socioeconomic History Marital status: Spouse name: Not on file Number of children: Not on file Years of education: Not on file Highest education level: Not on file Occupational History Not on file Tobacco Use Smoking status: Former Average packs/day: 4.0 packs/day for 18.0 years (72.0 ttl pk-yrs) Types: Cigarettes Start date: 1967 Passive exposure: Past Smokeless tobacco: Never Vaping Use Vaping status: Former Start date: 09/30/2017 Quit date: 01/28/2018 Substances: THC Devices: Disposable Substance and Sexual Activity Alcohol use: Yes Alcohol/week: 40.0 standard drinks of alcohol Types: 12 Cans of beer, 28 Shots of liquor per week Drug use: Yes Types: Marijuana Comment: 4 times weekly Sexual activity: Defer Other Topics Concern Not on file Social History Narrative Not on file Social Drivers of Health Financial Resource Strain: Not on file Food Insecurity: No Food Insecurity (12/07/2024) Hunger Vital Sign Worried About Running Out of Food in the Last Year: Never true Ran Out of Food in the Last Year: Never true Transportation Needs: No Transportation Needs (12/07/2024) PRAPARE - Transportation Lack of Transportation (Medical): No Lack of Transportation (Non-Medical): No Physical Activity: Not on file Stress: Not on file Social Connections: Unknown (07/12/2023) Received from [facility] Family and Community Support Help with Day-to-Day Activities: Not on file Lonely or Isolated: Not on file Intimate Partner Violence: Unknown (12/07/2024) Humiliation, Afraid, Rape, and Kick questionnaire Fear of Current or Ex-Partner: No Emotionally Abused: Not on file Physically Abused: No Sexually Abused: No Housing Stability: Low Risk (12/07/2024) Housing Stability Vital Sign Unable to Pay for Housing in the Last Year: No Number of Times Moved in the Last Year: 0 Homeless in the Last Year: No Summary of last visit on 10/14/2024: -seen in clinic for follow-up of his CPPD disease. On the visit prior, he was prescribed colchicine, however as he subsequently developed fever, abdominal pain and he was found to having right-sided hydronephrosis. He was subsequently prescribed antibiotics and as he was worried about the interaction of colchicine with the antibiotic, he stopped taking colchicine himself. He did mention that he noticed a big difference between taking and not taking colchicine. -at the prior visit, patient noted to having pain in bilateral shoulders and was requesting shoulder joint injections in the same word done. -recommendation was to continue colchicine Interval summary since last visit: -had numerous ED and hospital admissions since the last visit due to ureteral obstruction noted ureteropelvic junction ureterovesicular junction causing right-sided ureteral hydronephrosis. He subsequently underwent robot assisted ureteral reimplantation with nephrostomy tube placement status post removal and ureteral stent placement on 12/22/2024. He subsequently underwent pyeloplasty on 02/17/2025. -seen by Urology on 03/16/2025 for stent removal, however following stent removal he started experiencing significant right-sided flank and abdominal pain and CT imaging at that time was concerning for ureteral disruption at the site of recent pyeloplasty he subsequently underwent a ureteroscopy with stent placement. He is due for follow-up with urology in April for further management and possible stent removal. -Been taking colchicine intermittently as it was held during his hospital visits ROS: Patient denies fever/chills, night sweats, weight loss, photosensitivity, rash, RP, nasal/oral/genital ulcers, alopecia, epistaxis, inflammatory eye disease, dry eye, dry mouth, chest pain/palpitations, h/o pericarditis, h/o pleuritis, hemoptysis, abdominal pain, n/v/d/c, hematochezia/melena, dysuria, hematuria. No h/o DVT/PE. OBJECTIVE Visit Vitals BP (!) 172/97 Comment: provider notified, advised to take his meds when he gets home Pulse 70 Temp 36.8 ??C (98.2 ??F) (Oral) Ht 1.778 m (5' 10 ) Wt 70 kg (154 lb 5.2 oz) SpO2 98% BMI 22.14 kg/m?? Home medications: Current Outpatient Medications Medication Instructions acetaminophen (TYLENOL) 1,000 mg, Every 6 hours PRN colchicine (COLCRYS) 0.6 mg, Oral, 2 times daily fluconazole (DIFLUCAN) 200 mg, Oral, Daily ibuprofen 600 mg, Every 6 hours PRN lisinopril 20 mg, Weekly methocarbamol (ROBAXIN) 500 mg, Oral, 4 times daily naloxone (NARCAN) 4 mg, Nasal, As needed oxyCODONE (ROXICODONE) 5 mg, Oral, Every 6 hours PRN tamsulosin (FLOMAX) 0.4 mg, Oral, Daily with dinner Physical Exam Constitutional: Appearance: Normal appearance. HENT: Head: Normocephalic. Right Ear: Tympanic membrane normal. Left Ear: Tympanic membrane normal. Nose: Nose normal. Mouth/Throat: Mouth: Mucous membranes are moist. Eyes: Extraocular Movements: Extraocular movements intact. Conjunctiva/sclera: Conjunctivae normal. Pupils: Pupils are equal, round, and reactive to light. Cardiovascular: Rate and Rhythm: Normal rate and regular rhythm. Pulses: Normal pulses. Heart sounds: Normal heart sounds. Pulmonary: Effort: Pulmonary effort is normal. Breath sounds: Normal breath sounds. Abdominal: Palpations: Abdomen is soft. Musculoskeletal: General: Tenderness (appreciated at b/l ac joints and also along medial joint line of b/l knees) present. No swelling. Normal range of motion. Cervical back: Normal range of motion. Comments: Crepitus appreciated in b/l shoulders and knees Neurological: General: No focal deficit present. Mental Status: He is alert and oriented to person, place, and time. Results: Lab Results Component Value Date WBC 17.56 (H) 03/18/2025 HGB 13.4 (L) 03/18/2025 HCT 40.3 03/18/2025 MCV 90 03/18/2025 PLT 201 03/18/2025 Lab Results Component Value Date GLUCOSE 139 (H) 03/18/2025 CALCIUM 9.4 03/18/2025 NA 138 03/18/2025 K 4.6 03/18/2025 CO2 24 03/18/2025 CL 104 03/18/2025 BUN 9 03/18/2025 CREATININE 0.68 (L) 03/18/2025 Images: XR HAND WRIST BILATERAL 2 VIEWS, XR SHOULDER LEFT 2+ VIEWS, XR SHOULDER RIGHT 2+ VIEWS, XR KNEE LEFT 1 OR 2 VIEWS, XR KNEE RIGHT 1 OR 2 VIEWS from 04/10/2024: 1.Osteoarthritis of the bilateral hand. 2.Moderate osteoarthritis of the left glenohumeral joint and mild osteoarthritis of the right glenohumeral joint. 3.Findings compatible with right rotator cuff tear. 4.Postoperative changes of left distal clavicular resection and left coracoclavicular ligament reconstruction. 5.Moderate osteoarthritis of the right patellofemoral joint and mild osteoarthritis of the left patellofemoral joint. 6.Calcium pyrophosphate deposition disease in the hands and knees. 7.No findings of inflammatory arthropathy. No other recent relevant imaging Assessment/Plan Patient ID: Parth Pratt is a 70 y.o. male. Encounter Diagnoses Name Primary? Calcium pyrophosphate deposition disease Yes Primary osteoarthritis of knees, bilateral Calculus of ureter Injection / Aspiration - Large Joint: bilateral knee Indications: pain Details: 22 G needle, medial approach Outcome: tolerated well, no immediate complications Triamcinolone acetonide 40 mg along with lidocaine 1% was injected bilaterally into the knee joints Consent was given by the patient. Immediately prior to procedure a time out was called to verify the correct patient, procedure, equipment, software support specialist and site/side marked as required. Patient wasprepped and draped in the usual sterile fashion. Mr. Pratt, was seen in clinic for follow-up of his CPPD. Since his last office visit with us about 6months ago, he has had multiple hospital admissions due to a complicated right-sided hydronephrosissecondary to obstruction at the ureteropelvic in ureterovesicular junction. He has had stenting in pyeloplasty and currently is due to follow-up with urology in April for possible stent extraction. Most recent stent was placed in February 2025. Overall today, patient feels well and is compliant with his colchicine. He has missed a few doses of colchicine over the last 6 months and this is due to hishospital time and colchicine was held. He feels well on colchicine with no side effects and notes to benefit from being on the same. On today's evaluation, he noted to having pain in bilateral shoulders and knees, however stated that pain in his knees is worse and was requesting intra-articular showed as done in the past. He was also noted to having an elevated blood pressure with blood pressure noted to being 172/97 mm of Hg, but stated that he did miss his morning medications. He did not haveany symptoms such as headache, blurring of vision, chest pain. Was advised to take his medications and recheck his blood pressure and if no improvement to seek out medical care. CPPD disease: -longstanding history of CPPD disease and is on colchicine -patient denied any side effects of colchicine such as diarrhea -mostly compliant with medication apart from the duration of hospital stays -on today's visit noted to having pain in bilateral shoulders and knees as mentioned above but overall feels well Plan: -most recent CBC and BMP is from 1 month ago and therefore no rashes in repeating the same today -kidney functions was noted to being fine and will continue the current dose of colchicine. Refill colchicine today -F/u in 6 months 2. Primary OA of knees -longstanding history of OA of knees and has received triamcinolone shots in the past. Most recently done in June of 2024 -crepitus and tenderness appreciated as mentioned above Plan: -intra-articular triamcinolone injections performed 3. Concern for possible uric acid stone: -patient has had numerous hospital admissions in the recent past for hydronephrosis secondary to strictures -structures are likely due to stones in the past. It is unclear as to what is the composition of the stones in the past. Due to a suspicion of possible uric acid component stones, it would be worthwhile to check for serum uric acid levels endocrine noted to being elevated patient would likely benefit from a low dose of allopurinol to help suppress uric acid production and thereby possible stone formation -patient would also benefit from checking parathyroid hormone to evaluate for possible etiology of the stones in the past -Continue to follow up with urology as planned The above plan was discussed with Dr. Winter Ray was seen today for calcium pyrophosphate deposition disease and follow-up. Diagnoses and all orders for this visit: Calcium pyrophosphate deposition disease (Primary) - triamcinolone acetonide (Kenalog-40) injection 40 mg - triamcinolone acetonide (Kenalog-40) injection 40 mg - Discontinue: lidocaine (Xylocaine) 1 % injection 10 mL - Discontinue: lidocaine (Xylocaine) 1 % injection 10 mL - lidocaine (Xylocaine) 1 % injection 2 mL - lidocaine (Xylocaine) 1 % injection 2 mL - PTH Panel 1; Future - Uric acid; Future Primary osteoarthritis of knees, bilateral - triamcinolone acetonide (Kenalog-40) injection 40 mg - triamcinolone acetonide (Kenalog-40) injection 40 mg - Discontinue: lidocaine (Xylocaine) 1 % injection 10 mL - Discontinue: lidocaine (Xylocaine) 1 % injection 10 mL - lidocaine (Xylocaine) 1 % injection 2 mL - lidocaine (Xylocaine) 1 % injection 2 mL Calculus of ureter - PTH Panel 1; Future - Uric acid; Future Other orders - colchicine (Colcrys) 0.6 MG tablet; Take 1 tablet by mouth 2 times a day. Follow up in about 6 months (around 10/09/2025). Information regarding activities, treatments, and follow-up recommendations was provided to the patient/family member(s) present today who have shown recognition and demonstration of understanding ofthis information. Susanne Marrero MD PGY4, Rheumatology Fellow Division of Rheumatology Department of Internal Medicine [facility] Please note: This dictation was prepared using [employer] voice recognition software. As a result errors may occur. While every attempt is made to correct the mistakes during dictation, errors may still exist. When identified, these cash control specialist errors have been updated. [1] Past Medical History: Diagnosis Date Alcohol [...] Onset Hyperthyroidism Sister Damaso Hyperthermia Neg Hx Cosigned by Nik Winter MD at 04/15/2025 5:12 PM EDT Associated attestation - Nik Winter MD - 04/15/2025 5:12 PM EDT I saw and evaluated the patient with the resident/fellow. I discussed the case with the resident/fellow and agree with the findings and plan as documented. documented in this encounter Plan of Treatment Upcoming Encounters Date Type Department Care Team (Latest Contact Info) Description 05/17/2025 3:05 PM EDT Hospital Encounter [facility] [address] [place] [address] Talib Serna MD [address] [address] 05/17/2025 3:05 PM EDT - 05/17/2025 4:35 PM EDT Surgery [facility] [address] [place] [address] Talib Serna MD [address] [phone] URETEROSCOPY, WITH BIOPSY WITH POSSIBLE R URETERAL STENT EXCHANGE [04656 (CPT )] 06/17/2025 12:00 PM EDT Appointment [facility] [address] [place] [address] 06/17/2025 1:30 PM EDT Office Visit Medical Office Building Urology [facility] [address] [facility], [address] [place] [phone] Talib Serna MD [address] [place] [address] 10/21/2025 11:00 AM EST [facility] [address] [place] [address] Mayi Ballard MD [address] [place] [address] Scheduled Procedures Name Priority Associated Diagnoses Date/Ti me URETEROSCOPY, WITH BIOPSY Ureteropelvic junction (UPJ) obstruction, right 05/17/2025 3:05 PM EDT documented as of this encounter Goals Goal Patient Goal Type Associated Problems Recent Progress Patient-Stated? Author Autogenerat ed Goal Care Plan Autogenerated Problem No Lidia Bell documented as of this encounter Procedures Procedure Name Priority Date/Time Associated Diagnosis Comments IN ARTHROCENTESIS ASPIR&/INJ MAJOR JT/BURSA W/O US Routine 04/08/2025 9:10 AM EDT Primary osteoarthritis of knees, bilateral documented in this encounter Results * Uric acid (04/08/2025 12:14 PM EDT) Uric Acid, Plasma 6.4 3.7 - 8.0 mg/dL 04/08/2025 2:22 PM EDT [facility] Blood Venous blood specimen / Unknown Venipuncture / Unknown 04/08/2025 12:14 PM EDT 04/08/2025 12:15 PM EDT us Nik Winter MD LAB BLOOD ORDERABLES Final Result [facility] [address] [place] [address] * IN ARTHROCENTESIS ASPIR&/INJ MAJOR JT/BURSA W/O US (04/08/2025 9:10 AM EDT) Narrative Nik Winter MD - 04/08/2025 9:10 AM EDT Nik Winter MD 04/15/2025 5:12 PM Injection / Aspiration - Large Joint: bilateral knee Indications: pain Details: 22 G needle, medial approach Outcome: tolerated well, no immediate complications Triamcinolone acetonide 40 mg along with lidocaine 1% was injected bilaterally into the knee joints Consent was given by the patient. Immediately prior to procedure a time out was called to verify the correct patient, procedure, equipment, software support specialist and site/side marked as required. Patient was prepped and draped in the usual sterile fashion. us Nik Winter MD IN CLINIC/BEDSIDE ORDERABLE S Final Result documented in this encounter Visit Diagnoses Diagnosis Calcium pyrophosphate deposition disease- Primary Other disorder of calcium metabolism Primary osteoarthritis of knees, bilateral Calculus of ureter Ureteropelvic junction (UPJ) obstruction, right documented in this encounter Administered Medications Inactive Administered Medications - up to 3 most recent administrations Medication Order MAR Action Action Date Dose Rate Site lidocaine (Xylocaine) 1 % injection 2 mL 2 mL, Infiltration, Once, 1 dose, On Brittney 04/08/25 at 1145, RoutineIndications:Calcium pyrophosphate deposition disease,Primary osteoarthritis of knees, bilateral Given 04/08/2025 11:12 AM EDT 2 mL Left Knee lidocaine (Xylocaine) 1 % injection 2 mL 2 mL, Infiltration, Once, 1 dose, On Brittney 04/08/25 at 1145, RoutineIndications:Calcium pyrophosphate deposition disease,Primary osteoarthritis of knees, bilateral Given by Other 04/08/2025 11:06 AM EDT 2 mL Right Knee triamcinolone acetonide (Kenalog-40) injection 40 mg 40 mg, Intra-articular, Once, 1 dose, On Brittney 04/08/25 at 1145, RoutineIndications:Calcium pyrophosphate deposition disease,Primary osteoarthritis of knees, bilateral Given 04/08/2025 11:11 AM EDT 40 mg Other triamcinolone acetonide (Kenalog-40) injection 40 mg 40 mg, Intra-articular, Once, 1 dose, On Brittney 04/08/25 at 1145, RoutineIndications:Calcium pyrophosphate deposition disease,Primary osteoarthritis of knees, bilateral Given by Other 04/08/2025 11:09 AM EDT 40 mg Other documented in this encounter Additional Health Concerns Active Problems Noted Date Diagnosed Date Autogenerated Problem 03/23/2025 Assessment Noted Time PHQ-9 Depression Total Score: 0 04/08/20 9:53 AM EDT A fall risk assessment has been complete d for the patient 04/08/2025 9:53 AM EDT A Body Mass Index follow-up plan has been documented for the patient 04/15/2025 5:12 PM EDT documented as of this encounter Care Teams Motor Coach Bus Driver Relationship Specialty Start Date End Date Thiago Gregory APRN [address] [place] [address] PCP - General 03/20/24 Doug Bill, FARTUN ```````````````````````CH - PACU - MAJOR, PAV A Registered Nurse 12/23/24 documented as of this encounter
--- OUTSIDE RECORDS SUMMARY | 2025-04-29 09:00 | XMS_ITS | Encounter Summary ---
Author Organization Healthcare Address [address] [id number] Care Team Providers Care String Laster Name Role Phone Thiago Gregory APRN Primary Care Provider [phone] Doug Bill RN Unavailable Unavailable Encounter Details Date Type Department Care Team (Latest Contact Info) Description 04/29/2025 9:00 AM EDT Office Visit Medical Office Building Urology [address] [facility], [address] [place] [address] Talib Serna MD [address] [place] [address] Ureteropelvic junction (UPJ) obstruction, right (Primary Dx) Social History Tobacco Use Types [...] Date Recorded Patient Health Questionnaire-2 Score 0 04/29/2025 Hunger Vital Sign Answer Date Recorded Within [...] Date Recorded Patient Health Questionnaire-9 Score 0 04/29/2025 Housing Stability Vital Sign Answer Christian e [...] in a jail (including now)? No 12/07/2024 AUDIT-C Answer Date Recorded Q1: How often do you have a drink containing alc ohol? Monthly or less 04/29/2025 Q2: How many drinks containi ng alcohol do you have on a typical day when you are drinking? 1 or 2 04/29/2025 Q3: How often do you have si x or more drinks on one occasion? Less than monthly 04/29/2025 CAGE ASSESSMENT Answer Date Recorded Cage unable [...] drink first t nigel in the morning (EYE-PANEL FLOW MACHINE OPERATOR) to steady your nerves or to get rid of a hangover? 0 03/17/2025 CAGE Questionnaire Score 0 025 Utilities Answer Date Recorded In the past 12 months has jeff e electric, gas, oil, or water company threatened to shut off services in your home? No 12/07/2024 Sex and Gender Information Value Date Recorded Sex Assigned at Male 10/03/2024 11:15 AM EST Legal Sex Male 6:18 PM EDT Gender Identity Not on file Sexual Orientation Not on file documented as of this encounter Functional Status * AUDIT-C Score Answer Date of Assessment Author 2 04/29/2025 8:39 AM Leena Valerio * Question Answer Date of Assessment Author Q1: How often do you have a drink containing alcohol? Monthly or less 04/29/2025 8:39 AM Ash Valerio Q2: How many drinks containing alcohol do you have on a typical day when you are drinking? 1 or 2 04/29/2025 8:39 AM Nacho Valerio Q3: How often do you have six or more drinks on one occasion? Less than monthly 04/29/2025 8:39 AM Nacho Valerio * Over the past 2 weeks, how often have you been bothered by any of the following problems? Question Answer Date of Assessment Author Little interest or pleasure in doing things Not at all 04/29/2025 8:40 AM Nacho Valerio Feeling down, depressed, or hopeless Not at all 04/29/2025 8:40 AM Nacho Valerio Patient Health Questionnaire -2 Score 0 04/29/2025 8:40 AM Nacho Valerio * Question Answer Date of Assessment Author Trouble falling or staying a sleep, or sleeping too much Not at all 04/29/2025 8:40 AM Nacho Valerio Feeling tired or having soumya le energy Not at all 04/29/2025 8:40 AM Nacho Valerio Poor appetite or overeating Not at all 04/29/2025 8: 40 AM Nacho Valerio Feeling bad about yourself - or that you are a failure or have let yourself or your family down Not at all 04/29/2025 8:40 AM Oziel Valerio Trouble concentrating on thi ngs, such as reading the newspaper or watching television Not at all 04/29/2025 8:40 AM Nacho Valerio Moving or speaking so slowly that other people could have noticed? Or the opposite - being so fidgety or restless that you have been moving around a lot more than usual. Not at all 04/29/2025 8:40 AM Nacho Valerio Thoughts that you would be b americo off or hurting yourself in some way Not at all 04/29/2025 8:40 AM Nacho Valerio Patient Health Questionnaire -9 Score 0 04/29/2025 8:40 AM Nacho Valerio * If you checked off any problems on this questionnaire so far, Question Answer Date of Assessment Author How difficult have these problems made it for you to do your work, take care of things at home, or get along with other people? Not difficult at all 04/29/2025 8:40 AM Nacho Valerio documented as of this encounter Miscellaneous Notes * Progress Notes - Talib Serna MD - 04/29/2025 9:00 AM EDT TELEHEALTH VISIT HPI: Parth Pratt is a 70 y.o. 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 He did well post- op from his pyeloplasty and had stent removal on 03/16. Following stent removal he began to experience significant right sided flank and abdominal pain. He presented to the ED and CT imaging showed right hydronephrosis and contrast extravasation outside of collecting system at the proximal ureter.He was taken to the on the for cysto, RPG, diagnostic URS, and Tria stent placement. His pain improved and he was discharged home on the . He returns today for follow up via . He says he feels like he has had continuous improvement since then. He notices some occasional discomfort with reflux when voiding but otherwise has no consistent issues. He says he is generally sleeping through the night and no longer has voiding symptoms during the day. Current Outpatient Medications Medication Instructions acetaminophen (TYLENOL) 1,000 mg, Every 6 hours PRN colchicine (COLCRYS) 0.6 mg, Oral, 2 times daily ibuprofen 600 mg, Every 6 hours PRN lisinopril 20 mg, Weekly methocarbamol (ROBAXIN) 500 mg, Oral, 4 times daily naloxone (NARCAN) 4 mg, Nasal, As needed oxyCODONE (ROXICODONE) 5 mg, Oral, Every 6 hours PRN Past Medical History[1] Surgical History[2] Social History[3] Family History[4] PE: GEN: No acute distress PULM: No audible wheezing or stridor, non-labored respirations Psych: Answered questions appropriately with normal affect LABS: Creatinine, Plasma (mg/dL) Date/Time Value 03/18/2025 040 0.68 (L) eGFRcr (mL/min/1.73m*2) Date/Time Value 03/18/2025 040 99.4 Total Calcium, Plasma (mg/dL) Date/Time Value 03/18/2025 0409 9.4 IMPRESSION: 70 y.o. male with complex urologic history over the course of this year including right ureteral reimplant, right pyeloplasty, and subsequent right ureteral stent replacement; currently doing well and tolerating the stent. PLAN: We discussed options for next steps and he is inclined to proceed with endoscopic evaluation under anesthesia to gauge the patency and status of his pyeloplasty. We discussed that if everything looksto be well healed and wide open we could simply remove the stent and see how things go. If it looksto be obviously scarred down or not healed, we would replace his stent. If there is any question, we will plan for right percutaneous nephrostomy tube placement in conjunction with ureteral stent removal to see how things go. Talib Serna MD, MPH Telehealth Statement Patient Verification Patient identity has been confirmed using name and date of ? Yes Authorizations and Agreements/Telemedicine Consent sent and consent confirmed? Yes Patient Location: Home/Other Patient confirms they are physically located in [place]? Yes If the patient is not physically located in [place], the provider has confirmed with [facility] thatthe provider is authorized to provide services in patient's stated location? Yes Provider Location: [facility] facility Audio and video or audio only? Audio and video Total visit time: 18 minutes [1] Past Medical History: Diagnosis Date Alcohol [...] Procedure Laterality Date COLONOSCOPY CYSTOSCOPY 12/15/2024 ([facility]) cystosopy, ANTEGRADE URETEROSCOPY, right nephrostomy tube exchange (Ureter) URETEROSCOPY (Right) INSERTION OR REPLACEMENT, NEPHROSTOMY TUBE (Right) HIP ARTHROPLASTY Bilateral HIP SURGERY Right to replace recalled loli device KIDNEY STONE SURGERY LIVER BIOPSY NEPHROSTOMY 12/04/2024 ([facility]) INSERTION OR REPLACEMENT, NEPHROSTOMY TUBE (Right) PROSTATE BIOPSY SHOULDER SURGERY Left cadaver tendon placed in shoulder TONSILLECTOMY UPPER GASTROINTESTINAL ENDOSCOPY URETEROSCOPY 11/30/2024 ([facility]) URETEROSCOPY, RIGHT RETROGRADE (Right) CYSTOSCOPY [...] Hospital Encounter PAV A OPERATING ROOM [address] [place] [address] Talib Serna MD [address] [address] 05/17/2025 3:05 PM EDT - 05/17/2025 4:35 PM EDT Surgery PAV A OPERATING ROOM [address] [place] [address] Talib Serna MD [address] [address] URETEROSCOPY, WITH BIOPSY WITH POSSIBLE R URETERAL STENT EXCHANGE [11306 (CPT )] 06/17/2025 12:00 PM EDT Appointment [facility] CT [address], [address]nd [place] [address] 06/17/2025 1:30 PM EDT Office Visit Medical Office Building Urology [address] [facility], [address] [place] [address] Talib Serna MD [address] [address] 10/21/2025 11:00 AM EST Office Visit [place] [facility] [address], 2nd [place] [address] Mayi Ballard MD [address] [facility] [address] [place] [address] Scheduled Procedures Name Priority Associated [...] Noted Time PHQ-9 Depression Total Score: 0 04/29/20 8:40 AM EDT A fall risk assessment has been complete d for the patient 04/29/2025 8:41 AM EDT A Body Mass Index follow-up plan has been documented for the patient 04/29/2025 9:23 AM EDT documented as of this encounter Care Teams String Laster Relationship Specialty Start Date End Date Thiago Gregory APRN [address] [place] [address] PCP - General 03/20/24 Doug Bill RN ```````````````````````CH - PACU - MAJOR, PAV A Registered Nurse 12/23/24 documented as of this encounter
--- OUTSIDE RECORDS SUMMARY | 2025-05-03 11:44 | XMS_ITS | Encounter Summary ---
Author Organization Healthcare Address [address] [id number] Care Team Providers Care Student Life Vice President Name Role Phone Thiago Gregory APRN Primary Care Provider [phone] Doug Bill RN Unavailable Unavailable Encounter Details Date Type Department Care Team (Late st Contact Info) Description 04/08/2025 Telephone [place] [facility] [address], [address]nd [place] [address] Talib Serna MD [address] [place] [address] Social History Tobacco Use Types [...] time in the past 12 m [facility], were you homeless or living in a [...] drink first t nigel in the morning (EYE-MANAGEMENT ENGINEER) to steady your nerves or to [...] a detailed vm and sent patient a AnybodyOutThere message relaying message. Left him with clinic [...] Hospital Encounter PAV A OPERATING ROOM [address] [place] [address] Talib Serna MD [address] [address] 05/17/2025 3:05 PM EDT - 05/17/2025 4:35 PM EDT Surgery PAV A OPERATING ROOM [address] [place] [address] Talib Serna MD [address] [address] URETEROSCOPY, WITH BIOPSY WITH POSSIBLE R URETERAL STENT EXCHANGE [15534 (CPT )] 06/17/2025 12:00 PM EDT Appointment [facility] CT [address], 2nd [place] [address] 06/17/2025 1:30 PM EDT Office Visit Medical Office Building Urology [address] [facility], [address] [place] [address] Talib Serna MD [address] [address] 10/21/2025 11:00 AM EST Office Visit [place] [facility] [address], [address]nd [place] [address] Mayi Ballard MD [address] [facility] [address] [place] [address] Scheduled Procedures Name Priority Associated [...] documented as of this encounter Care Teams Student Life Vice President Relationship Specialty Start Date End Date Thiago Gregory APRN [address] [place] [address] PCP - General 03/20/24 Doug Bill RN ```````````````````````CH - PACU - MAJOR, PAV A Registered Nurse 12/23/24 documented as of this encounter
--- OUTSIDE RECORDS SUMMARY | 2025-05-03 11:45 | XMS_ITS | Encounter Summary ---
Author Organization [facility] Address [address] [id number] Care Team Providers Care Drawing Hand Name Role Phone Thiago Gregory APRN Primary Care Provider [phone] [phone] Doug Bill RN Unavailable Unavailable Encounter Details [...] any time in the past 12 m [facility], were you homeless or living [...] first t nigel in the morning (EYE-TIRE DUSTER) to steady your nerves or to get [...] one occasion? Never 03/16/2025 9:41 AM EDT Reentta Mann * Over the past 2 weeks, [...] Hospital Encounter PAV A OPERATING ROOM [address] [place] [address] Talib Serna MD [address] [phone] 05/17/2025 3:05 PM EDT - 05/17/2025 4:35 PM EDT Surgery PAV A OPERATING ROOM [address] [place] [address] Talib Serna MD [address] [address] URETEROSCOPY, WITH BIOPSY WITH POSSIBLE R URETERAL STENT EXCHANGE [08795 (CPT )] 06/17/2025 12:00 PM EDT Appointment [facility] [address], 2nd [place] [address] 06/17/2025 1:30 PM EDT Office Visit Medical Office Building Urology [address] [facility], [address] [place] [address] Talib Serna MD [address] [place] [address] 10/21/2025 11:00 AM EST Office Visit [facility] [address], 2nd [place] [address] Mayi Ballard MD [address] [facility] [address] [place] [address] Scheduled Procedures Name Priority Associated Diagnoses Date/Ti me URETEROSCOPY, WITH BIOPSY Ureteropelvic junction (UPJ) obstruction, right 05/17/2025 3:05 PM EDT documented as of this encounter Visit Diagnoses Not on filedocumented in this encounter Additional Health Concerns Assessment Noted Time A fall risk assessment has been complete d for the patient 03/16/2025 9:45 AM EDT A Body Mass Index follow-up plan has been documented for the patient 03/16/2025 3:02 PM EDT documented as of this encounter Care Teams Drawing Hand Relationship Specialty Start Date End Date Thiago Gregory APRN [address] [place] [address] PCP - General 03/20/24 Doug Bill RN ```````````````````````CH - PACU - MAJOR, PAV A Registered Nurse 12/23/24 documented as of this encounter
--- OUTSIDE RECORDS SUMMARY | 2025-05-03 11:45 | XMS_ITS | Encounter Summary ---
Author Organization Healthcare Address [address] [id number] Care Team Providers Care Matrix Repairer Name Role Phone Thiago Gregory APRN Primary Care Provider [phone] Doug Bill RN Unavailable Unavailable Encounter Details Date Type Department Care Team (Late st Contact Info) Description 03/17/2025 Orders Only External Location 800 [place] [address] Provider, External Social History Tobacco Use Types [...] time in the past 12 m [facility], were you homeless or living in a [facility] (including now)? No 12/07/2024 AUDIT-C Answer Date [...] drink first t nigel in the morning (EYE-MOSAICIST) to steady your nerves or to get [...] (Lifetime) No 8:00 AM EDT Tami Ramírez, FARTUN documented as of this encounter Plan of Treatment Upcoming Encounters Date Type Department Care Team (Latest Contact Info) Description 05/17/2025 3:05 PM EDT Hospital Encounter PAV A OPERATING ROOM [address] [place] [address] Talib Serna MD [address] [phone] 05/17/2025 3:05 PM EDT - 05/17/2025 4:35 PM EDT Surgery PAV A OPERATING ROOM [address] [place] [address] Talib Serna MD [address] [address] URETEROSCOPY, WITH BIOPSY WITH POSSIBLE R URETERAL STENT EXCHANGE [57534 (CPT )] 06/17/2025 12:00 PM EDT Appointment [facility] [address], 2nd [place] [address] 06/17/2025 1:30 PM EDT Office Visit Medical Office Building Urology [facility] E [facility], [address] [place] [address] Talib Serna MD [address] [phone] 10/21/2025 11:00 AM EST Office Visit [facility] [address], 2nd [place] [address] Mayi Ballard MD [address] [place] [address] Scheduled Procedures Name Priority Associated [...] documented as of this encounter Care Teams Matrix Repairer Relationship Specialty Start Date End Date Thiago Gregory APRN [address] [place] [address] PCP - General 03/20/24 Doug Bill, RN ```````````````````````CH - PACU - MAJOR, PAV A Registered Nurse 12/23/24 documented as of this encounter
--- OUTSIDE RECORDS SUMMARY | 2025-05-03 11:45 | XMS_ITS | Encounter Summary ---
Author Organization Healthcare Address [address] [id number] Care Team Providers Care Art Manager Name Role Phone Thiago Gregory APRN Primary Care Provider [phone] Doug Bill RN Unavailable Unavailable Encounter Details Date Type Department Care Team (Late st Contact Info) Description 03/16/2025 Telephone [place] [facility] [address], 2nd [place] [phone] Ariana Clayton LPN [facility] Social History Tobacco Use [...] time in the past 12 m [facility], were you homeless or living [...] drink first t nigel in the morning (EYE-SIMONIZER) to steady your nerves or to get [...] EDT Spoke to patient. He is in [facility] Emergency Department now for evaluation. [...] Hospital Encounter PAV A OPERATING ROOM [address] [place] [address] Talib Serna MD [address] [phone] 05/17/2025 3:05 PM EDT - 05/17/2025 4:35 PM EDT Surgery PAV A OPERATING ROOM [address] [place] [address] Talib Serna MD [address] [phone] URETEROSCOPY, WITH BIOPSY WITH POSSIBLE R URETERAL STENT EXCHANGE [17819 (CPT )] 06/17/2025 12:00 PM EDT Appointment [facility] CT [address], 2nd [place] [address] 06/17/2025 1:30 PM EDT Office Visit Medical Office Building Urology [address] [facility], [address] [place] [address] Talib Serna MD [address] [phone] 10/21/2025 11:00 AM EST Office Visit [place] [facility] [address], 2nd [place] [address] Mayi Ballard MD [address] [place] [address] Scheduled Procedures Name Priority Associated [...] documented as of this encounter Care Teams Art Manager Relationship Specialty Start Date End Date Thiago Gregory APRN [address] [place] [address] PCP - General 03/20/24 Doug Bill, RN ```````````````````````CH - PACU - MAJOR, PAV A Registered Nurse 12/23/24 documented as of this encounter
--- OUTSIDE RECORDS SUMMARY | 2025-05-03 11:45 | XMS_ITS | Encounter Summary ---
Author Organization Healthcare Address [address] [id number] Care Team Providers Care Aerologist Name Role Phone Thiago Gregory APRN Primary Care Provider [phone] Doug Bill RN Unavailable Unavailable Reason for Visit * Reason Onset Date Comments HCN Clinical Concern/Question 04/08/2025 Encounter Details Date Type Department Care Team (Late st Contact Info) Description 04/08/2025 Telephone [facility] [address], 2nd [place] [address] Talib Serna MD [address] [place] [address] HCN Clinical Concern/Question Social History [...] time in the past 12 m [facility], were you homeless or living in [...] first t nigel in the morning (EYE-SUPERVISOR ACOUSTICAL TILE CARPENTERS) to steady your nerves or to get [...] of town but has an appt at [facility] this morning and said he could do a lab while he is there. Best contact number: [phone] (mobile) Optimal time of day to reach caller: ANYTIME Additional comments/information from caller: None Note: Please do not reply to this message. Follow-up communication and further actions as a result of this message need to be communicated with the patient directly, if the patient is not active onMyChart. If the patient is active on MyChart, they will receive notification of the communication/outcome via [employer]. documented in this encounter Plan of Treatment Upcoming Encounters Date Type Department Care Team (Latest Contact Info) Description 05/17/2025 3:05 PM EDT Hospital Encounter PAV A OPERATING ROOM [address] [place] [address] Talib Serna MD [address] [facility] [address] [place] [address] 05/17/2025 3:05 PM EDT - 05/17/2025 4:35 PM EDT Surgery PAV A OPERATING ROOM [address] [place] [address] Talib Serna MD [address] [address] URETEROSCOPY, WITH BIOPSY WITH POSSIBLE R URETERAL STENT EXCHANGE [79422 (CPT )] 06/17/2025 12:00 PM EDT Appointment [facility] CT [address], 2nd [place] [address] 06/17/2025 1:30 PM EDT Office Visit Medical Office Building Urology [address] [facility], [address] [place] [address] Talib Serna MD [address] 1256100 [place] [address] 10/21/2025 11:00 AM EST Office Visit [place] [facility] [address], 2nd [place] [address] Mayi Ballard MD [address] [place] [address] Scheduled Procedures Name Priority Associated Diagnoses Date/Ti [...] documented as of this encounter Care Teams Aerologist Relationship Specialty Start Date End Date Thiago Gregory APRN [address] [place] [address] PCP - General 03/20/24 Doug Bill, RN ```````````````````````CH - PACU - MAJOR, PAV A Registered Nurse 12/23/24 documented as of this encounter
--- OUTSIDE RECORDS SUMMARY | 2025-05-03 11:45 | XMS_ITS | Encounter Summary ---
Author Organization Healthcare Address [address] [id number] Care Team Providers Care Clinic Manager Name Role Phone Thiago Gregory APRN Primary Care Provider [phone] Doug iBll RN Unavailable Unavailable Encounter Details Date Type Department Care Team (Late st Contact Info) Description 03/17/2025 Orders Only External Location [address] [place] [address] Provider, External Social History Tobacco Use Types [...] drink first t nigel in the morning (EYE-RAG WASHER) to steady your nerves or to get [...] Hospital Encounter PAV A OPERATING ROOM [address] [place] [address] Talib Serna MD [address] [phone] 05/17/2025 3:05 PM EDT - 05/17/2025 4:35 PM EDT Surgery PAV A OPERATING ROOM [address] [place] [address] Talib Serna MD [address] [phone] URETEROSCOPY, WITH BIOPSY WITH POSSIBLE R URETERAL STENT EXCHANGE [69304 (CPT )] 06/17/2025 12:00 PM EDT Appointment [facility] CT [address], 2nd [place] [address] 06/17/2025 1:30 PM EDT Office Visit Medical Office Building Urology [facility] [address] [facility], [address] [place] [address] Talib Serna MD [address] [phone] 10/21/2025 11:00 AM EST Office Visit [place] [facility] Medicine Specialties [address], 2nd [place] [address] Mayi Ballard MD [address] [place] [address] Scheduled Procedures Name Priority Associated [...] documented as of this encounter Care Teams Clinic Manager Relationship Specialty Start Date End Date Thiago Gregory APRN [address] [place] [address] PCP - General 03/20/24 Doug Bill, RN ```````````````````````CH - PACU - MAJOR, PAV A Registered Nurse 12/23/24 documented as of this encounter
--- OUTSIDE RECORDS SUMMARY | 2025-05-03 11:45 | XMS_ITS | Encounter Summary ---
Author Organization [facility] Address [address] [id number] Care Team Providers Care Extender Name Role Phone Thiago Gregory APRN Primary Care Provider [phone] Doug Bill RN Unavailable Unavailable Encounter Details [...] time in the past 12 m [facility], were you homeless or living in a retirement (including now)? No 12/07/2024 AUDIT-C Answer Date [...] drink first t nigel in the morning (EYE-EDUCATION PARAPROFESSIONAL) to steady your nerves or to get [...] Hospital Encounter PAV A OPERATING ROOM 800 [place] [address] Talib Serna MD [address] [address] 05/17/2025 3:05 PM EDT - 05/17/2025 4:35 PM EDT Surgery PAV A OPERATING ROOM [address] [place] [address] Talib Serna MD [address] [address] URETEROSCOPY, WITH BIOPSY WITH POSSIBLE R URETERAL STENT EXCHANGE [59376 (CPT )] 06/17/2025 12:00 PM EDT Appointment [facility] [address], 2nd [place] [address] 06/17/2025 1:30 PM EDT Office Visit Medical Office Building Urology [facility] E [facility], [address] [place] [address] Talib Serna MD [address] [address] 10/21/2025 11:00 AM EST Office Visit [place] [facility] [address], 2nd [place] [address] Mayi Ballard MD [address] [place] [address] Scheduled Procedures Name Priority Associated [...] documented as of this encounter Care Teams Extender Relationship Specialty Start Date End Date Thiago Gregory APRN [address] [place] [address] PCP - General 03/20/24 Doug Bill, RN ```````````````````````CH - PACU - MAJOR, PAV A Registered Nurse 12/23/24 documented as of this encounter
--- OUTSIDE RECORDS SUMMARY | 2025-05-03 11:45 | XMS_ITS | Encounter Summary ---
Author Organization Healthcare Address [address] [id number] Care Team Providers Care Screen Handler Name Role Phone Thiago Greogry APRN Primary Care Provider [phone] [phone] Doug Bill RN Unavailable Unavailable Encounter Details Date Type Department Care Team (Late st Contact Info) Description 04/08/2025 Orders Only [place] [facility] [address], 2nd [place] [address] Talib Serna MD [address] [place] [address] Urinary tract infection without hematuria, [...] time in the past 12 m [facility], were you homeless or living [...] drink first t nigel in the morning (EYE-HEALTH AND NUTRITION SPECIALIST) to steady your nerves or to [...] Hospital Encounter PAV A OPERATING ROOM [address] [place] [address] Talib Serna MD [address] [phone] 05/17/2025 3:05 PM EDT - 05/17/2025 4:35 PM EDT Surgery PAV A OPERATING ROOM [address] [place] [address] Talib Serna MD [address] [address] URETEROSCOPY, WITH BIOPSY WITH POSSIBLE R URETERAL STENT EXCHANGE [50748 (CPT )] 06/17/2025 12:00 PM EDT Appointment [facility] [address], 2nd [place] [address] 06/17/2025 1:30 PM EDT Office Visit Medical Office Building Urology [address] [facility], [address] [place] [address] Talib Serna MD [address] [address] 10/21/2025 11:00 AM EST Office Visit [place] [facility] [address], 2nd [place] [address] Mayi Ballard MD [address] [place] [address] Scheduled Procedures Name Priority Associated [...] CFU/mL Lucie albicans(A) 04/10/2025 1:02 PM EDT [facility] Comment: This isolate has been identified using the FDA Approved Save22er CA System Edited result: Previously reported as Yeast on 04/10/2025 at 0514 EDT. Urine Urine specimen obtained by clean catch procedure / Unknown Non-blood Collection / Unknown 04/08/2025 8:58 AM EDT 04/08/2025 8:59 AM EDT us Talib Serna MD LAB MICROBIOLOGY - GENERAL ORD ERABLES Final Result [facility] [address] [place] [address] * (ABNORMAL) UA w/ Micro (Culture NOT Included) - Lab Collect (04/08/2025 8:58 AM EDT) Color, Urine Yellow LAB URINALYSIS - AUTOMATED METHOD 04/08/2025 10:00 AM EDT [facility] Clarity, Urine Cloudy LAB URINALYSIS - AUTOMATED METHOD 04/08/2025 10:00 AM EDT [facility] Spec [place], Urine 1.017 1.005 - 1.030 LAB URINALYSIS - AUTOMATED METHOD 04/08/2025 10:00 AM EDT [facility] pH, Urine 6.0 5.0 - 8.0 LAB URINALYSIS - AUTOMATED METHOD 04/08/2025 10:00 AM [facility] Protein, Urine >=300(A) Negative mg/dL LAB URINALYSIS - AUTOMATED METHOD 04/08/2025 10:00 AM [facility] Glucose, Urine Negative Negative mg/dL LAB URINALYSIS - AUTOMATED METHOD 04/08/2025 10:00 AM [facility] Ketones, Urine 15(A) Negative mg/dL LAB URINALYSIS - AUTOMATED METHOD 04/08/2025 10:00 AM [facility] Blood, Urine Small(A) Negative LAB URINALYSIS - AUTOMATED METHOD 04/08/2025 10:00 AM [facility] Bilirubin, Urine Negative Negative LAB URINALYSIS - AUTOMATED METHOD 04/08/2025 10:00 AM [facility] Urobilinogen, Urine 1.0 0.2 to 1.0 mg/dL LAB URINALYSIS - AUTOMATED METHOD 04/08/2025 10:00 AM [facility] Leukocytes, Urine Large(A) Negative LAB URINALYSIS - AUTOMATED METHOD 04/08/2025 10:00 AM [facility] Nitrite, Urine Negative Negative LAB URINALYSIS - AUTOMATED METHOD 04/08/2025 10:00 AM [facility] RBC, Urine 11 - 15(A) 0 to 3 /HPF LAB URINALYSIS - AUTOMATED METHOD 04/08/2025 10:00 AM [facility] WBC, Urine >50(A) 0 to 5 /HPF LAB URINALYSIS - AUTOMATED METHOD 04/08/2025 10:00 AM [facility] Squamous Epithelial Cells 0 - 2 0 to 5 /HPF LAB URINALYSIS - AUTOMATED METHOD 04/08/2025 10:00 AM [facility] Hyaline Casts 0 - 2 0 to 5 /LPF LAB URINALYSIS - AUTOMATED METHOD 04/08/2025 10:00 AM [facility] Bacteria, Urine Negative Negative LAB URINALYSIS - AUTOMATED METHOD 04/08/2025 10:00 AM [facility] Renal Tubular Cells Present Absent LAB URINALYSIS - AUTOMATED METHOD 04/08/2025 10:00 AM [facility] Yeast (Budding and/or Pseudohyphae) Present(A) Absent LAB URINALYSIS - AUTOMATED METHOD 04/08/2025 10:00 AM EDT [facility] Urine Urine specimen obtained by clean catch procedure / Unknown Non-blood Collection / Unknown 04/08/2025 8:58 AM EDT 04/08/2025 8:59 AM EDT us Talib Serna MD LAB URINE ORDERABLES Final Res ult [facility] [address] [place] [address] documented in this encounter Visit Diagnoses Diagnosis [...] documented as of this encounter Care Teams Screen Handler Relationship Specialty Start Date End Date Thiago Gregory APRN [address] [place] [address] PCP - General 03/20/24 Doug Bill, RN ```````````````````````CH - PACU - MAJOR, PAV A Registered Nurse 12/23/24 documented as of this encounter
--- OUTSIDE RECORDS SUMMARY | 2025-05-03 11:45 | XMS_ITS ---
Author Organization Unknown TREATMENT PLAN Planned Care Start Date Provider Encounter for Check-up [id number] [facility]
--- OUTSIDE RECORDS SUMMARY | 2025-05-03 11:45 | XMS_ITS | Encounter Summary ---
Author Organization Healthcare Address [address] [id number] Care Team Providers Care Half Section Ironer Name Role Phone Thiago Gregory APRN Primary Care Provider +[phone] Doug Bill RN Unavailable Unavailable Reason for Visit * Reason Onset Date Comments HCN Clinical Concern/Question 03/02/2025 Encounter Details Date Type Department Care Team (Late st Contact Info) Description 03/02/2025 Telephone [place] [facility] [address], 2nd [place] [address] Talib Serna MD [address] [place] [address] HCN Clinical Concern/Question Social History [...] were you homeless or living in a [facility] (including now)? No 12/07/2024 CAGE ASSESSMENT Answer [...] drink first t nigel in the morning (EYE-DUCT LAYER HELPER) to steady your nerves or to get [...] whatever is appropriate please/ Best contact number: [phone] (mobile) Optimal time of day to reach caller: ANYTIME Additional comments/information from caller: None Note: Please do not reply to this message. Follow-up communication and further actions as a result of this message need to be communicated with the patient directly, if the patient is not active onMyChart. If the patient is active on MyChart, they will receive notification of the communication/outcome via [employer]. documented in this encounter Plan of Treatment Upcoming Encounters Date Type Department Care Team (Latest Contact Info) Description 05/17/2025 3:05 PM EDT Hospital Encounter PAV A OPERATING ROOM [address] [place] [address] Talib Serna MD [address] [address] 05/17/2025 3:05 PM EDT - 05/17/2025 4:35 PM EDT Surgery PAV A OPERATING ROOM [address] [place] [address] Talib Serna MD [address] [address] URETEROSCOPY, WITH BIOPSY WITH POSSIBLE R URETERAL STENT EXCHANGE [37350 (CPT )] 06/17/2025 12:00 PM EDT Appointment [facility] [address] 2nd [place] [address] 06/17/2025 1:30 PM EDT Office Visit Medical Office Building Urology [address] [facility], [address] [place] [address] Talib Serna MD [address] [place] [address] 10/21/2025 11:00 AM EST Office Visit [place] [facility] [address], 2[address] [place] [address] Mayi Ballard MD [address] [facility] [address] [place] [address] Scheduled Procedures Name Priority Associated [...] documented as of this encounter Care Teams Half Section Ironer Relationship Specialty Start Date End Date Thiago Gregory APRN [address] [id number] PCP - General 03/20/24 Doug Bill, RN ```````````````````````CH - PACU - MAJOR, PAV A Registered Nurse 12/23/24 documented as of this encounter
--- OUTSIDE RECORDS SUMMARY | 2025-05-03 11:45 | XMS_ITS | Encounter Summary ---
Author Organization Healthcare Address [address] [id number] Care Team Providers Care Enamel Applier Name Role Phone Thiago Gregory APRN Primary Care Provider [phone] Doug Bill RN Unavailable Unavailable Encounter Details Date Type Department Care Team (Late st Contact Info) Description 03/23/2025 Telephone [facility] [address], [address] [place] [address] Talib Serna MD [address] [place] [address] Social History Tobacco Use Types [...] drink first t nigel in the morning (EYE-SHEET IRONWORKER) to steady your nerves or to get rid of a hangover? 0 03/17/2025 CAGE Questionnaire Score 0 025 Utilities Answer Date Recorded In the past 12 months has th e electric, gas, oil, or water [facility] threatened to shut off services in your [...] culture order mailed to be collected at [facility] 05/03 documented in this encounter Plan of Treatment Upcoming Encounters Date Type Department Care Team (Latest Contact Info) Description 05/17/2025 3:05 PM EDT Hospital Encounter [facility] [address] [place] [address] Talib Serna MD [address] [address] 05/17/2025 3:05 PM EDT - 05/17/2025 4:35 PM EDT Surgery [facility] [address] [place] [address] Talib Serna MD [address] [address] URETEROSCOPY, WITH BIOPSY WITH POSSIBLE R URETERAL STENT EXCHANGE [81901 (CPT )] 06/17/2025 12:00 PM EDT Appointment [facility] [address]nd [place] [address] 06/17/2025 1:30 PM EDT Office Visit Medical Office Building Urology [address] [facility], [address] [place] [address] Talib Serna MD [address] [place] [address] 10/21/2025 11:00 AM EST [facility] [address], [address] [place] [address] Mayi Ballard MD [address] [facility] [address] [place] [address] Scheduled Orders Name Type Priority [...] documented as of this encounter Care Teams Enamel Applier Relationship Specialty Start Date End Date Thiago Gregory, METEOROLOGIST LIAISON [address] [place] [address] PCP - General 03/20/24 Doug Bill, RN ```````````````````````CH - PACU - MAJOR, PAV A Registered Nurse 12/23/24 documented as of this encounter
--- OUTSIDE RECORDS SUMMARY | 2025-05-03 11:45 | XMS_ITS | Encounter Summary ---
Author Organization Healthcare Address [address] [id number] Care Team Providers Care Train Brakeman Name Role Phone Thiago Gregory APRN Primary Care Provider [phone] Doug Bill RN Unavailable Unavailable Encounter Details Date Type Department Care Team (Late st Contact Info) Description 03/17/2025 Orders Only External Location [address] [place] [address] Provider, External Social History Tobacco Use Types [...] any time in the past 12 m [facility], were you homeless or living [...] drink first t nigel in the morning (EYE-REPAIRER SHOE STICKS) to steady your nerves or to get [...] Hospital Encounter [facility] ROOM [address] [place] [address] Talib Serna MD [address] [phone] 05/17/2025 3:05 PM EDT - 05/17/2025 4:35 PM EDT Surgery [facility] RO[facility] [address] [place] [address] Talib Serna MD [address] [phone] URETEROSCOPY, WITH BIOPSY WITH POSSIBLE R URETERAL STENT EXCHANGE [53488 (CPT )] 06/17/2025 12:00 PM EDT Appointment [facility] [address]nd [place] [address] 06/17/2025 1:30 PM EDT Office Visit Medical Office Building Urology [facility] [address] [facility], [address] [place] [address] Talib Serna MD [address] [phone] 10/21/2025 11:00 AM EST Office Visit [place] [facility] [address], [address] [place] [address] Mayi Ballard MD [address] [place] [address] Scheduled Procedures Name Priority Associated [...] documented as of this encounter Care Teams Train Brakeman Relationship Specialty Start Date End Date Thiago Gregory APRN [address] [place] [address] PCP - General 03/20/24 Doug Bill, RN ```````````````````````CH - PACU - MAJOR, PAV A Registered Nurse 12/23/24 documented as of this encounter
--- OUTSIDE RECORDS SUMMARY | 2025-05-03 11:45 | XMS_ITS | Encounter Summary ---
Author Organization [facility] Address [address] [id number] Care Team Providers Care Supervisor Pleating Name Role Phone Thiago Gregory APRN Primary Care Provider [phone] Doug Bill RN Unavailable Unavailable Encounter Details Date Type Department Care Team (Latest Contact Info) Description 04/29/2025 Travel Social History Tobacco Use Types Packs/Day [...] any time in the past 12 m [facility], were you homeless or living in a [...] drink first t nigel in the morning (EYE-SHAKE FEEDER) to steady your nerves or to [...] usual. Not at all 04/29/2025 8:40 AM EDT Nacho Linda Thoughts that you would be b americo off or hurting yourself in some way Not at all 04/29/2025 8:40 AM KAYLANT Nacho Linda Patient Health Questionnaire -9 Score 0 04/29/2025 8:40 AM KAYLANT Nacho Linda * If you checked off any problems on this questionnaire so far, Question Answer Date of Assessment Author How difficult have these problems made it for you to do your work, take care of things at home, or get along with other people? Not difficult at all 04/29/2025 8:40 AM KAYLANT Nacho Linda documented as of this encounter Plan of Treatment Upcoming Encounters Date Type Department Care Team (Latest Contact Info) Description 05/17/2025 3:05 PM EDT Hospital Encounter [facility]PERATING RO[facility] [address] [place] [address] Talib Serna MD [address] [address] 05/17/2025 3:05 PM EDT - 05/17/2025 4:35 PM EDT Surgery [facility]PERATING ROOM [address] [place] [address] Talib Serna MD [address] [phone] URETEROSCOPY, WITH BIOPSY WITH POSSIBLE R URETERAL STENT EXCHANGE [[id number] (CPT )] 06/17/2025 12:00 PM EDT Appointment [facility] [address]nd [place] [address] 06/17/2025 1:30 PM EDT Office Visit Medical Office Building Urology [address] [facility], [address] [place] [address] Talib Serna MD [address] [address] 10/21/2025 11:00 AM EST Office Visit [place] [facility] [address] [place] [address] Mayi Ballard MD [address] [place] [address] Scheduled Procedures Name Priority Associated Diagnoses Date/Ti [...] documented as of this encounter Care Teams Supervisor Pleating Relationship Specialty Start Date End Date Thiago Gregory APRN [address] [place] [address] PCP - General 03/20/24 Doug Bill, RN ```````````````````````CH - PACU - MAJOR, PAV A Registered Nurse 12/23/24 documented as of this encounter
--- OUTSIDE RECORDS SUMMARY | 2025-05-03 11:45 | XMS_ITS | Encounter Summary ---
Author Organization [facility] Address [address] [id number] Care Team Providers Care Band Bias Machine Operator Name Role Phone Thiago Gregory APRN Primary Care Provider [phone] Doug Bill RN Unavailable Unavailable Encounter Details [...] time in the past 12 m [facility], were you homeless or living in a [...] drink first t nigel in the morning (EYE-EDITOR IN CHIEF NEWSPAPER) to steady your nerves or to get [...] usual. Not at all 04/08/2025 9:53 AM KAYLANT Mattie Rueda RN Thoughts that you would be better [...] Rueda RN documented as of this encounter Plan of Treatment Upcoming Encounters Date Type Department Care Team (Latest Contact Info) Description 05/17/2025 3:05 PM EDT Hospital Encounter [facility]ATING ROOM [address] [place] [address] Talib Serna MD [address] [place] [phone] 05/17/2025 3:05 PM EDT - 05/17/2025 4:35 PM EDT Surgery [facility]PERATING ROOM [address] [place] [address] Talib Serna MD [address] [place] [address] URETEROSCOPY, WITH BIOPSY WITH POSSIBLE R URETERAL STENT EXCHANGE [[id number] (CPT )] 06/17/2025 12:00 PM EDT Appointment [facility] [address]nd [place] [address] 06/17/2025 1:30 PM EDT Office Visit Medical Office Building Urology [facility] [address] [facility], [address] [place] [address] Talib Serna MD [address] [place] [address] 10/21/2025 11:00 AM EST Office Visit [place] [facility] [address], [address] [place] [address] Mayi Ballard MD [address] [facility] [address] [place] [address] Scheduled Procedures Name Priority Associated [...] documented as of this encounter Care Teams Band Bias Machine Operator Relationship Specialty Start Date End Date Thiago Gregory APRN [address] [place] [address] PCP - General 03/20/24 Doug Bill, RN ```````````````````````CH - PACU - MAJOR, PAV A Registered Nurse 12/23/24 documented as of this encounter
--- OUTSIDE RECORDS SUMMARY | 2025-05-03 11:45 | XMS_ITS | Encounter Summary ---
Author Organization Healthcare Address [address] [id number] Care Team Providers Care Felled Seam Operator Name Role Phone Thiago Gregory APRN Primary Care Provider [phone] Doug Bill RN Unavailable Unavailable Encounter Details Date Type Department Care Team (Late st Contact Info) Description 04/08/2025 Orders Only [facility] [address] [place] [address] Talib Serna MD [address] [place] [address] Urinary tract infection without hematuria, [...] in the past 12 m [facility], were you homeless or living [...] drink first t nigel in the morning (EYE-MARSHMALLOW MACHINE WORKER) to steady your nerves or to get [...] 2-3 times a week 04/08/2025 9:45 AM Mattei Wood RN Q2: How many drinks containing [...] Hospital Encounter [facility] A OPERATING ROOM [address] [place] [address] Talib Serna MD [address] [address] 05/17/2025 3:05 PM EDT - 05/17/2025 4:35 PM EDT Surgery [facility] A OPERATING ROOM [address] [place] [address] Talib Serna MD [address] [address] URETEROSCOPY, WITH BIOPSY WITH POSSIBLE R URETERAL STENT EXCHANGE [[id number] (CPT )] 06/17/2025 12:00 PM EDT Appointment [facility] [address] [place] [address] 06/17/2025 1:30 PM EDT Office Visit Medical Office Building Urology [address] [facility], [address] [place] [address] Talib Serna MD [address] [place] [address] 10/21/2025 11:00 AM EST Office Visit [place] [facility] [address], [address] [place] [address] Mayi Ballard MD [address] [facility] [address] [place] [address] Scheduled Procedures Name Priority Associated Diagnoses Date/Ti me URETEROSCOPY, WITH BIOPSY Ureteropelvic junction (UPJ) obstruction, right 05/17/2025 3:05 PM EDT documented as of this encounter Goals Goal Patient Goal Type Associated Problems Recent Progress Patient-Stated? Author Autogenerat ed Goal Care Plan Autogenerated Problem No Ray Lidia Truong documented as of this encounter Visit Diagnoses [...] documented as of this encounter Care Teams Felled Seam Operator Relationship Specialty Start Date End Date Thiago Gregory APRN [address] [place] [address] PCP - General 03/20/24 Doug Bill RN ```````````````````````CH - PACU - MAJOR, PAV A Registered Nurse 12/23/24 documented as of this encounter
--- OUTSIDE RECORDS SUMMARY | 2025-05-03 11:46 | XMS_ITS | Clinical Summary ---
Author Organization [facility] Address [address] [place] [id number] Care Team Providers Care Director Of Intercollegiate Athletics Name Role Phone Thiago Gregory APRN Primary Care Provider Doug Bill RN Unavailable Unavailable Allergies Active Allergy Reactions Criticality Noted Date Comments Chocolate Dermatitis Low 12/15/2024 Prochlorperazine Nausea Low 04/25/2022 Muscle tightness (neck) Medications methocarbamol (Robaxin) 500 MG tablet Take 1 tablet by mouth 4 times a day for 5 days. 20 tablet 02/21/20 Active Additional Information Patient not taking.Reported on 04/29/2025 oxyCODONE (Roxicodone) 5 MG immediate release tablet Take 1 tablet by mouth every 6 hours as needed for severe pain for up to 5 doses. 5 tablet 02/21/20 Active Additional Information Patient not taking.Reported on 04/29/2025 naloxone (Narcan) 4 mg/0.1 mL nasal spray 1. Give 1 spray in nostril for no/slow breathing or cannot wake after opioid use 2. Call 911 3. Repeat in other nostril if symptoms continue 1 each 02/21/20 Active Additional Information Patient not taking.Reported on 04/29/2025 acetaminophen (Tylenol) 500 MG tablet Take 2 tablets by mouth every 6 hours as needed. Active ibuprofen 200 MG tablet Take 3 tablets by mouth every 6 hours as needed for mild pain. Active lisinopril 20 MG tablet Take 1 tablet by mouth 1 time per week. Active colchicine (Colcrys) 0.6 MG tablet Take 1 tablet by mouth 2 times a day. 60 tablet 1 07/10/20 25 Active colchicine (Colcrys) 0.6 MG tablet Take 1 tablet by mouth 2 times a day. 025 Discontinu ed(Reorder ) tamsulosin (Flomax) 0.4 MG 24 hr capsule Take 1 capsule by mouth 1 time each day with dinner. 60 capsule 02/21/20 025 fluconazole (Diflucan) 200 MG tabletIndicatio ns:Urinary tract infection without hematuria, site unspecified Take 1 tablet by mouth daily for 14 days. 14 tablet 04/08/20 025 Hospital, Clinic, or Other Facility Administered [...] 25 Discontinued lidocaine (Xylocaine) 1 % injection 2 mLIndications:Calci um pyrophosphate deposition disease,Primary osteoarthritis of knees, bilateral 2 mL INFILTRATION Once 04/08/2025 04/08/20 25 Ended lidocaine (Xylocaine) 1 % injection 2 mLIndications:Calci um pyrophosphate deposition disease,Primary osteoarthritis of knees, bilateral 2 mL INFILTRATION Once 04/08/2025 04/08/20 25 Ended Active Problems Problem Noted Date Diagnosed Date Ureteropelvic junction (UPJ) obstruction, right 02/17/2025 UPJ (ureteropelvic junction) obstruction 025 Acute postoperative abdominal pain 01/01/2025 Ureteral stricture 12/22/2024 Hydronephrosis of right kidney 12/04/2024 Resolved Problems Problem Noted Date Diagnosed Date Resolved Date Alcohol abuse 07/01/2024 07/01/2024 Contact dermatitis 07/01/2024 Encephalopathy 07/01/2024 07/01/2024 Heberden's nodes of left hand 07/01/2024 07/01/2024 Hypertensive encephalopathy syndrome 07/01/2024 07/01/2024 Pain of left thumb 07/01/2024 Poison rashida dermatitis 07/01/20242023 Subcutaneous nodule of left thumb 07/01/2024 07/01/2024 Tobacco dependence due to cigarettes 07/01/2024 07/01/2024 Essential hypertension 04/25/202207/01 Encounters Date Type Department Care Team Description 04/29/2025 9:00 AM EDT Office Visit Medical Office Building Urology [facility], [address] [place] [address] Talib Serna MD Ureteropelvic junction (UPJ) obstruction, right (Primary Dx) 04/29/2025 Travel 04/22/2025 Results Follow-Up [facility] Medicine Specialties [address], [address] [place] [address] Mayi Ballard MD 04/08/2025 9:10 AM EDT Office Visit [facility] Medicine Specialties [address], [address] [place] [phone] Lianne Yañez, STEVEN Calcium pyrophosphate deposition disease (Primary Dx); Primary osteoarthritis of knees, bilateral; Calculus of ureter 04/08/2025 Telephone [facility] Urology [address], [address] [place] [phone] Talib Serna MD 04/08/2025 Orders Only [facility] Urology [address], [address] [place] [phone] Talib eSrna MD Urinary tract infection without hematuria, site unspecified (Primary Dx) 04/08/2025 Travel 04/08/2025 Orders Only [facility] Urology [address] [address] Talib Serna MD Urinary tract infection without hematuria, site unspecified (Primary Dx) 04/08/2025 Telephone [facility] [address] [address] Talib Serna MD HCN Clinical Concern/Question 03/23/[address] [address] Talib Serna MD 03/17/2025 10:00 PM EDT - 03/18/2025 12:30 AM EDT Surgery [facility] [address] [place] [address] Talib Serna MD URETEROSCOPY, COMPLEX [87977 (CPT )] 03/17/2025 9:37 PM EDT Anesthesia Event [facility] [address] [place] [address] Benito Rosenbaum DO [place], Evan R, MD 03/17/2025 5:05 PM EDT - 03/19/2025 3:33 PM EDT Hospital Encounter [facility] Inpatient [address] [place] [address] Michelle Craig MD Bylund, Jason R, MD Postoperative surgical complication involving genitourinary system associated with genitourinary procedure, unspecified complication (Primary Dx); Ureteropelvic junction (UPJ) obstruction, right; Right flank pain Discharge Disposition: Home or Self Care 03/17/2025 Travel 03/17/2025 Orders Only External Location [address] [place] [address] Provider, External 03/17/2025 Orders Only External Location [address] [place] [address] Provider, External 03/17/2025 Orders Only External Location [address] [place] [phone] Provider, External 03/17/2025 Telephone [facility] [address] [address] Talib Serna MD HCN - Patient Message (Pain after stent removal ) 03/16/2025 9:15 AM EDT Office Visit Medical Office Building Urology [facility], [address] [place] [address] Talib Serna MD Hydronephrosis of right kidney (Primary Dx) 03/16/2025 Telephone [place] [phone] [address] Ariana Clayton, CHRISTIAN SCIENCE NURSE 03/16/2025 Travel 03/02/[address] [address] Talib Serna MD HCN Clinical Concern/Question 02/20/2025 Travel 02/17/2025 8:15 AM EDT - 02/17/2025 12:40 PM EDT Surgery [facility] [address] [place] [phone] Talib Serna MD PYELOPLASTY, ROBOT-ASSISTED, USING DA COLE XI [46170 (CPT )] 02/17/2025 8:11 AM EDT Anesthesia Event [facility] [address] [place] [phone] Gordo Pham, Jose Francisco Oliva, DO 02/17/2025 5:24 AM EDT - 02/20/2025 3:18 PM EDT Hospital Encounter [facility] Inpatient [address] [place] [phone] Talib Serna MD Hydronephrosis, right Discharge Disposition: Home or Self Care 02/17/2025 Travel 02/16/2025 Telephone [facility] [address] [address] Talib Serna MD HCN - Patient Message 02/12/2025 Telephone [facility] [address] [address] Talib Serna MD HCN Clinical Concern/Question; U/C Results from Last 3 Months Immunizations Immunization Administration [...] in the past 12 m [facility], were you homeless or living [...] drink first t nigel in the morning (EYE-CORDAGE SALES REPRESENTATIVE) to steady your nerves or to get [...] Hospital Encounter [facility] [address] [place] [phone] Talib Serna MD [address] [address] 05/17/2025 3:05 PM EDT - 05/17/2025 4:35 PM EDT Surgery [facility] [address] [place] [address] Talib Serna MD [address] [phone] URETEROSCOPY, WITH BIOPSY WITH POSSIBLE R URETERAL STENT EXCHANGE [25642 (CPT )] 06/17/2025 12:00 PM EDT Appointment [facility] [address] [place] [phone] 06/17/2025 1:30 PM EDT Office Visit Medical Office Building Urology [facility], [address] [place] [address] Talib Serna MD [address] [phone] 10/21/2025 11:00 AM EST Office Visit [facility] Special[facility] [address], [address] [place] [address] Mayi Ballard MD [address] [place] [address] Scheduled Procedures Name Priority Associated Diagnoses Date/Ti me URETEROSCOPY, WITH BIOPSY Ureteropelvic junction (UPJ) obstruction, right 05/17/2025 3:05 PM EDT Health Maintenance Due Date Last Done [...] [facility]-Zoster Vaccines (2 of 2) 04/01/2020 02/05/2020 [id number] Vaccine (2023- season) 2025 08/19/2024, 08/09/2023, 07/23/2022, Additional history exists [facility]-Influenza Vaccine (#1) 05/31/202508/19, 08/09/2023, 07/23/2022, Additional history exists [facility]- SDOH Screenings 06/09/2025 [facility]-Adult SDOH Screenings 06/09/2025 12/07/2024 [facility]-Depression Screening 04/29/2026 04/29/2025, 04/01 [facility]-Hepatitis C Screening Completed 04/10/2024, 08/2024 [facility]-RSV [...] [employer] Implanted Type Area Pie Icer Machine Device Identifier Shelf Expiration Date Model / Serial / Lot Hip Hip Bilateral: Hip Stent Ureteral Tria Firm Monofilament 7f/24cm - [id number] Implanted:Qty: 1 on 12/22/2024 by Talib Serna MD at [facility] Stent Right: Ureter Rockstar [id number] 07/23/2027 [id number] 20 / / [id number] Stent Ureteral Double Pigtail Pos 6fr 22cm - [id number] - [id number] Implanted:Qty: 1 on 02/17/2025 by Talib Serna MD at [facility] Stent Micro[employer] [id number] 07/01/2025 [id number] 20 / [id number] 20 / [id number] Stent Ureteral Tria Firm Monofilament 7f/22cm - [id number] Implanted:Qty: 1 on 03/17/2025 by Talib Serna MD at [facility] Stent Right: Ureter [employer] [id number] 10/30/2026 [id number] 10 / / [id number] Procedures Procedure Name Priority Date/Time Associated Diagnosis [...] Calcium pyrophosphate deposition disease Calculus of ureter [place] ARTHROCENTESIS ASPIR&/INJ MAJOR JT/BURSA W/O US Routine [...] LAB HEMATOLOGY METHOD 04/08/2025 2:05 PM EDT [facility] Blood Venous blood specimen / Unknown Venipuncture / Unknown 04/08/2025 12:14 PM EDT 04/08/2025 12:15 PM EDT us Nik Winter MD LAB BLOOD ORDERABLES Final Result Performing Organization Address [facility]/ZIP Co de Phone Number [facility] [address] [place] [address] * Vitamin D 1,25 dihydroxy (04/08/2025 12:14 PM EDT) VITAMIN D, 1, 25-DIHYDROXY 45.6 19.9 - 79.3 pg/mL 04/09/2025 6:48 PM EDT [facility] Blood Venous blood specimen / Unknown Venipuncture / Unknown 04/08/2025 12:14 PM EDT 04/08/2025 12:15 PM EDT us Gladis Bain MD LAB BLOOD ORDERABLES Final Re sult Performing Organization Address City/[facility]/ZIP Co de Phone Number [facility] [address] [place] [address] * Vitamin D 25 Hydroxy (04/08/2025 12:14 PM EDT) Vitamin D 25 Hydroxy 24.3 20.0 - 80.0 ng/mL 04/08/2025 2:49 PM EDT [facility] Blood Venous blood specimen / Unknown Venipuncture / Unknown 04/08/2025 12:14 PM EDT 04/08/2025 12:15 PM EDT Narrative [facility] - 04/08/2025 2:49 PM EDT Testing performed on Henriquez Server Engineer, standardized against NIST SRM 2972. When testing [...] to 80 ng/mL Possible toxicity: >100 ng/mL us Gladis Bain MD LAB BLOOD ORDERABLES Final Re sult Performing Organization Address City/[facility] Co de Phone Number [facility] [address] [place] [address] * (ABNORMAL) Sedimentation Rate, Automated (04/08/2025 12:14 PM EDT) Sedimentation Rate 38(H) <20 mm/hr 2024 1:14 PM EDT [facility] Blood Venous blood specimen / Unknown Venipuncture / Unknown 04/08/2025 12:14 PM EDT 04/08/2025 12:15 PM EDT us Gladis Bain MD LAB BLOOD ORDERABLES Final Re sult Performing Organization Address [facility] [place] [address] * C-reactive protein (04/08/2025 12:14 PM EDT) CRP, Plasma <3.0 <=8.0 mg/L 04/08/2025 2:22 PM EDT [facility] Blood Venous blood specimen / Unknown Venipuncture / Unknown 04/08/2025 12:14 PM EDT 04/08/2025 12:15 PM EDT Narrative [facility] - 04/08/2025 2:22 PM EDT This CRP test is appropriate for assessment of infection, systemic inflammation and/or tissue injury. To assess cardiovascular disease risk order high sensitivity CRP (CRPH). us Gladis Bain MD LAB BLOOD ORDERABLES Final Re sult Performing Organization Address City/[facility] [place] [address] * Uric acid (04/08/2025 12:14 PM EDT) Uric Acid, Plasma 6.4 3.7 - 8.0 mg/dL 04/08/2025 2:22 PM EDT [facility] Blood Venous blood specimen / Unknown Venipuncture / Unknown 04/08/2025 12:14 PM EDT 04/08/2025 12:15 PM EDT us Nik Winter MD LAB BLOOD ORDERABLES Final Result Performing Organization Address [facility] de Phone Number [facility] [address] [place] [address] * PTH Intact Total (04/08/2025 12:14 PM EDT) PTH Intact Total 26 9 - 77 pg/mL 04/08/2025 2:14 PM EDT [facility] Blood Venous blood specimen / Unknown Venipuncture / Unknown 04/08/2025 12:14 PM EDT 04/08/2025 12:15 PM EDT Narrative [facility] - 04/08/2025 2:14 PM EDT Assay performed by immunoassay at the [facility]. Performed on Henriquez Server Engineer chemiluminescent immunoassay, tractable to the World Health Organization's first international standard for PTH from the [facility], Code 79/500. Results obtained from different test methods or kits cannot be used interchangeably. us Nik Winter MD LAB BLOOD ORDERABLES Final Result Performing Organization Address City/[facility] [place] [address] * [place] ARTHROCENTESIS ASPIR&/INJ MAJOR JT/BURSA W/O US (04/08/2025 [...] to verify the correct patient, procedure, equipment, integrated logistics support manager and site/side marked as required. Patient was prepped and draped in the usual sterile fashion. us Nik Winter MD IN CLINIC/BEDSIDE ORDERABLE S Final Result * Urinalysis Microscopic Examination (04/08/2025 8:58 AM EDT) Only the most recent of2 resultswithin the time period is included. Urine Urine specimen obtained by clean catch procedure / Unknown Non-blood Collection / Unknown 04/08/2025 8:58 AM EDT 04/08/2025 8:59 AM EDT us Talib Serna MD LAB URINE ORDERABLES Final Res ult [facility] [address] [place] [address] * (ABNORMAL) UA w/ Micro (Culture NOT Included) - Lab Collect (04/08/2025 8:58 AM EDT) Only the most recent of2 resultswithin the time period is included. Color, Urine Yellow LAB URINALYSIS - AUTOMATED METHOD 04/08/2025 10:00 AM EDT [facility] Clarity, Urine Cloudy LAB URINALYSIS - AUTOMATED METHOD 04/08/2025 10:00 AM EDT [facility] Spec [place], Urine 1.017 1.005 - 1.030 LAB URINALYSIS - AUTOMATED METHOD 04/08/2025 10:00 AM EDT [facility] pH, Urine 6.0 5.0 - 8.0 LAB URINALYSIS - AUTOMATED METHOD 04/08/2025 10:00 AM EDT [facility] Protein, Urine >=300(A) Negative mg/dL LAB URINALYSIS - AUTOMATED METHOD 04/08/2025 10:00 AM EDT [facility] Glucose, Urine Negative Negative mg/dL LAB URINALYSIS - AUTOMATED METHOD 04/08/2025 10:00 AM EDT [facility] Ketones, Urine 15(A) Negative mg/dL LAB URINALYSIS - AUTOMATED METHOD 04/08/2025 10:00 AM EDT [facility] Blood, Urine Small(A) Negative LAB URINALYSIS - AUTOMATED METHOD 04/08/2025 10:00 AM EDT [facility] Bilirubin, Urine Negative Negative LAB URINALYSIS - AUTOMATED METHOD 04/08/2025 10:00 AM EDT [facility] Urobilinogen, Urine 1.0 0.2 to 1.0 mg/dL LAB URINALYSIS - AUTOMATED METHOD 04/08/2025 10:00 AM EDT [facility] Leukocytes, Urine Large(A) Negative LAB URINALYSIS - AUTOMATED METHOD 04/08/2025 10:00 AM EDT [facility] Nitrite, Urine Negative Negative LAB URINALYSIS - AUTOMATED METHOD 04/08/2025 10:00 AM EDT [facility] RBC, Urine 11 - 15(A) 0 to 3 /HPF LAB URINALYSIS - AUTOMATED METHOD 04/08/2025 10:00 AM EDT [facility] WBC, Urine >50(A) 0 to 5 /HPF LAB URINALYSIS - AUTOMATED METHOD 04/08/2025 10:00 AM EDT [facility] Squamous Epithelial Cells 0 - 2 0 to 5 /HPF LAB URINALYSIS - AUTOMATED METHOD 04/08/2025 10:00 AM EDT [facility] Hyaline Casts 0 - 2 0 to 5 /LPF LAB URINALYSIS - AUTOMATED METHOD 04/08/2025 10:00 AM EDT [facility] Bacteria, Urine Negative Negative LAB URINALYSIS - AUTOMATED METHOD 04/08/2025 10:00 AM EDT [facility] Renal Tubular Cells Present Absent LAB URINALYSIS - AUTOMATED METHOD 04/08/2025 10:00 AM EDT [facility] Yeast (Budding and/or Pseudohyphae) Present(A) Absent LAB URINALYSIS - AUTOMATED METHOD 04/08/2025 10:00 AM EDT [facility] Urine Urine specimen obtained by clean catch procedure / Unknown Non-blood Collection / Unknown 04/08/2025 8:58 AM EDT 04/08/2025 8:59 AM EDT us Talib Serna MD LAB URINE ORDERABLES Final Res ult [facility] [address] [place] [address] * (ABNORMAL) Urine Culture - Lab Collect (04/08/2025 8:58 AM EDT) Only the most recent of4 resultswithin the time period is included. Pathologist [facility] Culture 10,000 - 100,000 CFU/mL Lucie albicans(A) 04/10/2025 1:02 PM EDT [facility] Comment: This isolate has been identified using the FDA Approved Fair Observerer CA System Edited result: Previously reported as Yeast on 04/10/2025 at 0514 EDT. Urine Urine specimen obtained by clean catch procedure / Unknown Non-blood Collection / Unknown 04/08/2025 8:58 AM EDT 04/08/2025 8:59 AM EDT us Talib Serna MD LAB MICROBIOLOGY - GENERAL ORD ERABLES Final Result [facility] [address] [place] [address] * (ABNORMAL) Hemogram (CBC) (03/18/2025 4:09 AM EDT) Only the most recent of5 resultswithin the time period is included. Pathologist [facility] WBC Count 17.56(H) 3.70 - 10.30 10*3/uL LAB HEMATOLOGY METHOD 03/18/2025 4:38 AM EDT [facility] RBC Count 4.47(L) 4.60 - 6.10 10*6/uL LAB HEMATOLOGY METHOD 03/18/2025 4:38 AM EDT [facility] HGB 13.4(L) 13.7 - 17.5 g/dL LAB HEMATOLOGY METHOD 03/18/2025 4:38 AM EDT [facility] HCT 40.3 40.0 - 51.0 % LAB HEMATOLOGY METHOD 03/18/2025 4:38 AM EDT [facility] Platelet Count 201 155 - 369 10*3/uL LAB HEMATOLOGY METHOD 03/18/2025 4:38 AM EDT [facility] MCV 90 79 - 98 fL LAB HEMATOLOGY METHOD 03/18/2025 4:38 AM EDT [facility] MCH 30.0 26.0 - 32.0 pg LAB HEMATOLOGY METHOD 03/18/2025 4:38 AM EDT [facility] MCHC 33.3 30.7 - 35.5 g/dL LAB HEMATOLOGY METHOD 03/18/2025 4:38 AM EDT [facility] RDW 13.2 11.5 - 14.5 % LAB HEMATOLOGY METHOD 03/18/2025 4:38 AM EDT [facility] MPV 10.8 8.8 - 12.5 fL LAB HEMATOLOGY METHOD 03/18/2025 4:38 AM EDT [facility] nRBC 0.0 <=0.0 per 100 WBCs LAB HEMATOLOGY METHOD 03/18/2025 4:38 AM EDT [facility] Blood Venous blood specimen / Unknown Venipuncture / Unknown 03/18/2025 4:09 AM EDT 03/18/2025 4:27 AM EDT us Talib Serna MD LAB BLOOD ORDERABLES Final Res ult [facility] [address] [place] [address] * (ABNORMAL) Basic metabolic panel (03/18/2025 4:09 AM EDT) Only the most recent of5 resultswithin the time period is included. Glucose, Plasma 139(H) 74 - 99 mg/dL 03/18/2025 4:56 AM EDT [facility] BUN, Plasma 9 8 - 23 mg/dL 03/18/2025 4:56 AM EDT [facility] Creatinine, Plasma 0.68(L) 0.70 - 1.20 mg/dL 03/18/2025 4:56 AM EDT [facility] BUN/Creatinine Ratio 13 03/18/2025 4:56 AM EDT [facility] Sodium, Plasma 138 136 - 145 mmol/L 03/18/2025 4:56 AM EDT [facility] Potassium, Plasma 4.6 3.6 - 4.9 mmol/L 03/18/2025 4:56 AM EDT [facility] Chloride, Plasma 104 97 - 107 mmol/L 03/18/2025 4:56 AM EDT [facility] CO2, Plasma 24 22 - 29 mmol/L 03/18/2025 4:56 AM EDT [facility] Anion Gap 10 6 - 16 mmol/L 03/18/2025 4:56 AM EDT [facility] Total Calcium, Plasma 9.4 8.9 - 10.2 mg/dL 03/18/2025 4:56 AM EDT [facility] eGFRcr 99.4 mL/min/1.7 3m*2 03/18/2025 4:56 AM EDT [facility] Comment:Reported eGFRcr in m L/min/1.73m2 is based the CKD-EPI 2020 equation that does not use a race coefficient. Blood Venous blood specimen / Unknown Venipuncture / Unknown 03/18/2025 4:09 AM EDT 03/18/2025 4:27 AM EDT us Talib Serna MD LAB BLOOD ORDERABLES Final Res ult Performing Organization Address City/[facility] Co de Phone Number [facility] [address] [place] [address] * [place] Less than 1 Hour Intraoperative (03/17/2025 10:40 PM EDT) Narrative IMAGING - 03/17/2025 10:40 PM EDT Images were obtained for surgical purposes. See Talib Serna's surgical note in the patient's chart for the findings. Talib Serna MD IMG FLUOROSCOPY PROCEDURES Fin al Result Performing Organization Address [facility] Co de Phone Number IMAGING * [...] Organization Address City/[facility]/ZIP Co de Phone Number [facility] [address] [place] [address] * Urine Barlow Panel (03/17/2025 6:28 PM EDT) Pathologist [facility] Extra Sent for Culture 03/17/2025 9:02 PM EDT [facility] Urine Urine specimen obtained by clean catch procedure / Unknown Non-blood Collection / Unknown 03/17/2025 6:28 PM EDT 03/17/2025 7:12 PM EDT Michelle Craig MD LAB URINE ORDERABLES Final Re sult Performing Organization Address City/[facility]/ZIP Co de Phone Number [facility] [address] [place] [address] * (ABNORMAL) CBC w/diff (03/17/2025 6:28 PM EDT) WBC Count 15.45(H) 3.70 - 10.30 10*3/uL LAB HEMATOLOGY METHOD 03/17/2025 6:48 PM EDT [facility] RBC Count 4.48(L) 4.60 - 6.10 10*6/uL LAB HEMATOLOGY METHOD 03/17/2025 6:48 PM EDT [facility] HGB 13.5(L) 13.7 - 17.5 g/dL LAB HEMATOLOGY METHOD 03/17/2025 6:48 PM EDT [facility] HCT 39.9(L) 40.0 - 51.0 % LAB HEMATOLOGY METHOD 03/17/2025 6:48 PM EDT [facility] Platelet Count 179 155 - 369 10*3/uL LAB HEMATOLOGY METHOD 03/17/2025 6:48 PM EDT [facility] MCV 89 79 - 98 fL LAB HEMATOLOGY METHOD 03/17/2025 6:48 PM EDT [facility] MCH 30.1 26.0 - 32.0 pg LAB HEMATOLOGY METHOD 03/17/2025 6:48 PM EDT [facility] MCHC 33.8 30.7 - 35.5 g/dL LAB HEMATOLOGY METHOD 03/17/2025 6:48 PM EDT [facility] RDW 13.2 11.5 - 14.5 % LAB HEMATOLOGY METHOD 03/17/2025 6:48 PM EDT [facility] MPV 11.1 8.8 - 12.5 fL LAB HEMATOLOGY METHOD 03/17/2025 6:48 PM EDT [facility] nRBC 0.0 <=0.0 per 100 WBCs LAB HEMATOLOGY METHOD 03/17/2025 6:48 PM EDT [facility] Differential Type Automated LAB HEMATOLOGY METHOD 03/17/2025 6:48 PM EDT [facility] Neutrophils % 77 % LAB HEMATOLOGY METHOD 03/17/2025 6:48 PM EDT [facility] Lymphocytes % 11 % LAB HEMATOLOGY METHOD 03/17/2025 6:48 PM EDT [facility] Monocytes % 10 % LAB HEMATOLOGY METHOD 03/17/2025 6:48 PM EDT [facility] Eosinophils % 1 % LAB HEMATOLOGY METHOD 03/17/2025 6:48 PM EDT [facility] Basophils % 0 % LAB HEMATOLOGY METHOD 03/17/2025 6:48 PM EDT [facility] Immature Granulocytes % 1 % LAB HEMATOLOGY METHOD 03/17/2025 6:48 PM EDT [facility] Neutrophils Absolute 11.98(H) 1.60 - 6.10 10*3/uL LAB HEMATOLOGY METHOD 03/17/2025 6:48 PM EDT [facility] Lymphocytes Absolute 1.64 1.20 - 3.90 10*3/uL LAB HEMATOLOGY METHOD 03/17/2025 6:48 PM EDT [facility] Monocytes Absolute 1.57(H) 0.30 - 0.90 10*3/uL LAB HEMATOLOGY METHOD 03/17/2025 6:48 PM EDT [facility] Eosinophils Absolute 0.15 0.00 - 0.50 10*3/uL LAB HEMATOLOGY METHOD 03/17/2025 6:48 PM EDT [facility] Basophils Absolute 0.03 0.00 - 0.10 10*3/uL LAB HEMATOLOGY METHOD 03/17/2025 6:48 PM EDT [facility] Immature Granulocytes Absolute 0.08(H) 0.00 - 0.06 10*3/uL LAB HEMATOLOGY METHOD 03/17/2025 6:48 PM EDT [facility] Blood Venous blood specimen / Unknown Venipuncture / Unknown 03/17/2025 6:28 PM EDT 03/17/2025 6:43 PM EDT Narrative [facility] - 03/17/2025 6:48 PM EDT Therapeutic decision making should be based on absolute values, rather than percentages. us Michelle Craig MD LAB BLOOD ORDERABLES Final Re sult [facility] [address] [place] [address] * (ABNORMAL) CMP (03/17/2025 6:28 PM EDT) Glucose, Plasma 107(H) 74 - 99 mg/dL 03/17/2025 7:07 PM EDT [facility] BUN, Plasma 11 8 - 23 mg/dL 03/17/2025 7:07 PM EDT [facility] Creatinine, Plasma 0.75 0.70 - 1.20 mg/dL 03/17/2025 7:07 PM EDT [facility] BUN/Creatinine Ratio 15 03/17/2025 7:07 PM EDT [facility] Sodium, Plasma 137 136 - 145 mmol/L 03/17/2025 7:07 PM EDT [facility] Potassium, Plasma 4.1 3.6 - 4.9 mmol/L 03/17/2025 7:07 PM EDT [facility] Chloride, Plasma 102 97 - 107 mmol/L 03/17/2025 7:07 PM EDT [facility] CO2, Plasma 23 22 - 29 mmol/L 03/17/2025 7:07 PM EDT [facility] Anion Gap 12 6 - 16 mmol/L 03/17/2025 7:07 PM EDT [facility] Total Calcium, Plasma 9.0 8.9 - 10.2 mg/dL 03/17/2025 7:07 PM EDT [facility] Total Protein 6.9 6.3 - 7.9 g/dL 03/17/2025 7:07 PM EDT [facility] Albumin, Plasma 3.8 3.5 - 5.2 g/dL 03/17/2025 7:07 PM EDT [facility] AST, Plasma 14 10 - 50 U/L 03/17/2025 7:07 PM EDT [facility] ALT, Plasma 13 10 - 50 U/L 03/17/2025 7:07 PM EDT [facility] Alkaline Phosphatase, Plasma 66 40 - 115 U/L 03/17/2025 7:07 PM EDT [facility] Total Bilirubin, Plasma 0.7 0.2 - 1.1 mg/dL 03/17/2025 7:07 PM EDT [facility] eGFRcr 96.5 mL/min/1.7 3m*2 03/17/2025 7:07 PM EDT [facility] Comment:Reported eGFRcr in m L/min/1.73m2 is based the CKD-EPI 2020 equation that does not use a race coefficient. Blood Venous blood specimen / Unknown Venipuncture / Unknown 03/17/2025 6:28 PM EDT 03/17/2025 6:43 PM EDT us Michelle Craig MD LAB BLOOD ORDERABLES Final Re sult [facility] [address] [place] [address] * CT MSK OUTSIDE IMAGES (03/17/2025 2:28 [...] following split bolus administration of IV contrast, [id number], 150 mL. Reformatted images in the coronal [...] PM EDT) Case Report Surgical Pathology Case: [id number] Authorizing Provider: Talib Serna MD Collected: 02/17/2025 1342 Ordering Location: [facility] A OPERATING ROOM Received: 02/17/2025 1427 Pathologist: Lesia Cole MD Specimen: Other (specify site), right proximal ureter 02/19/2025 11:07 AM EDT [facility] Final Diagnosis A. 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 02/19/2025 11:07 AM EDT [facility] at 1107 EDT Clinical Information hydronephrosis of right kidney 02/19/2025 11:07 AM EDT [facility] Gross Description A. RIGHT PROXIMAL URETER Received in formalin labeled right proximal ureter are multiple pieces of pink-desir rubbery tissue roughened with cauterization measuring 2.3 x 2.0 x 0.7 cm in aggregate. Entirely submitted in cassette A1. Cold Time: <1m Iveth Ramírez 02/19/2025 11:07 AM EDT [facility] Note: A resident was involved in the service. I attest I examined the relevant preparations for the specimens and confirmed the diagnosis or interpretation. 02/19/2025 11:07 AM EDT [facility] Tissue Topography unknown / Unknown 02/17/2025 1:42 PM EDT 02/17/2025 2:27 PM EDT Comment:Pre-op diagnosis: hydronephrosis of right kidney us Talib Serna MD LAB PATHOLOGY ORDERABLES Final Result [facility] [address] [place] [address] * Peripheral IV (02/17/2025 8:20 AM EDT) [...] and Staff Patient location during procedure: OR MARKETING MGR: Gordo Pham CRNA Performed: BETZAIDA Patient Condition [...] TEST ORDERABLES Final Result Performing Organization Address [facility] de Phone Number BLOOD BANK [address] * (ABNORMAL) Hepatitis C Antibody (04/10/2024 11:20 AM EDT) [facility] Hepatitis C Antibody Positive( A) Negative 04/10/2024 2:14 PM EDT [facility] Comment:This specimen is aleksandr ng sent for confirmation by RT-PCR. Blood Venous blood specimen / Unknown Venipuncture / Unknown 04/10/2024 11:20 AM EDT 04/10/2024 11:21 AM EDT Ryne Rodriguez MD LAB BLOOD ORDERABLES Fi nal Result Performing Organization Address [facility] de Phone Number HEALTHCARE LAB [address] [place] [address] from Last 3 Months or Most Recently Relevant to Health Maintenance Additional Health Concerns Active Problems Noted Date Diagnosed Date Autogenerated Problem 03/23/2025 Insurance [place] [address] Advance Directives * Full Code (Latest Code [...] Patient has decision-making capacity? Yes Care Teams Director Of Intercollegiate Athletics Relationship Specialty Start Date End Date Thiago Gregory APRN [address] [place] [address] PCP - General 03/20/24 Doug Bill, RN ```````````````````````CH - PACU - MAJOR, PAV A Registered Nurse 12/23/24
--- OUTSIDE RECORDS SUMMARY | 2025-05-03 11:46 | XMS_ITS ---
Laboratory report Created on: April 20, 2025 MERLENE JACKSON : 1955 Sex: Male Author Organization Unknown PROBLEMS Problems List Code Description RESULTS Laboratory Orders Date Order Code Test 2025-04-15 [id number] PSA TOTAL+% FREE Laboratory Results Date LOINC Test Value Unit Reference Range Interpre tation 2025-04-15 2857-1 PROSTATE SPECIFIC AG 11.5 NG/ML 0.0-4.0 H 2025-04-15 48667-8 PSA, FREE 1.14 NG/ML N/A 2025-04-15 52706-5 % FREE PSA 9.9 %
--- OUTSIDE RECORDS SUMMARY | 2025-05-03 11:46 | XMS_ITS | Encounter Summary ---
Author Organization Healthcare Address [address] [place] [address] Care Team Providers Care Ios Software Engineer Name Role Phone Thiago Gregory APRN Primary Care Provider [phone] Doug Bill RN Unavailable Unavailable Encounter Details Date Type Department Care Team (Late st Contact Info) Description 04/22/2025 Results Follow-Up [facility] Specialties [address], [address] [place] [address] Mayi Ballard MD [address] [place] [address] Social History Tobacco Use Types Packs/Day Years [...] any time in the past 12 m [facility], were you homeless or living in a alf (including now)? No 12/07/2024 AUDIT-C Answer Date [...] drink first t nigel in the morning (EYE-WELT SOLE LAYER) to steady your nerves or to get [...] Hospital Encounter [facility] A OPERATING ROOM [address] [place] [address] Talib Serna MD [address] [phone] 05/17/2025 3:05 PM EDT - 05/17/2025 4:35 PM EDT Surgery [facility] A OPERATING ROOM [address] [place] [address] Talib Serna MD [address] [address] URETEROSCOPY, WITH BIOPSY WITH POSSIBLE R URETERAL STENT EXCHANGE [89273 (CPT )] 06/17/2025 12:00 PM EDT Appointment [facility] [address] [place] [address] 06/17/2025 1:30 PM EDT Office Visit Medical Office Building Urology [address] [facility], [address] [place] [address] Talib Serna MD [address] [address] 10/21/2025 11:00 AM EST Office Visit [facility] [address] [place] [address] Mayi Ballard MD [address] [place] [address] Scheduled Procedures Name Priority Associated Diagnoses Date/Ti [...] documented as of this encounter Care Teams Ios Software Engineer Relationship Specialty Start Date End Date Thiago Gregory APRN [address] [place] [address] PCP - General 03/20/24 Doug Bill, RN ```````````````````````CH - PACU - MAJOR, PAV A Registered Nurse 12/23/24 documented as of this encounter
--- OUTSIDE RECORDS SUMMARY | 2025-05-03 11:46 | XMS_ITS | Encounter Summary ---
Author Organization Healthcare Address [address] [place] [id number] Care Team Providers Care House Decorator Name Role Phone Thiago Gregory APRN Primary Care Provider [phone] Doug Bill RN Unavailable Unavailable Reason for Visit * Reason Onset Date Comments HCN - Patient Message 03/17/2025 Pain after stent removal Encounter Details Date Type Department Care Team (Late st Contact Info) Description 03/17/2025 [facility]phone [facility] [address] [place] [address] Talib Serna MD [address] [place] [address] HCN - Patient Message (Pain [...] first t nigel in the morning (EYE-PHARMACY TECHNICIAN INPATIENT) to steady your nerves or to get [...] he states that he has been to [facility] and the doctors there and he himself [...] optimal time of day to reach caller: [phone] Note: Please do not reply to this message. Follow-up communication and further actions as a result of this message need to be communicated with the patient directly, if the patient is not active onMyChart. If the patient is active on MyChart, they will receive notification of the communication/outcome via OtherInboxt. documented in this encounter Plan of Treatment Upcoming Encounters Date Type Department Care Team (Latest Contact Info) Description 05/17/2025 3:05 PM EDT Hospital Encounter [facility] A OPERATING ROOM [address] [place] [phone] Talib Serna MD [address] [facility] [address] [place] [address] 05/17/2025 3:05 PM EDT - 05/17/2025 4:35 PM EDT Surgery [facility] OPERATING ROOM [address] [place] [address] Talib Serna MD [id number] [place] [address] URETEROSCOPY, WITH BIOPSY WITH POSSIBLE R URETERAL STENT EXCHANGE [19293 (CPT )] 06/17/2025 12:00 PM EDT Appointment [facility] [address] [place] [address] 06/17/2025 1:30 PM EDT Office Visit Medical Office Building Urology [address] [facility], [address] [place] [address] Talib Serna MD [phone] [place] [address] 10/21/2025 11:00 AM EST [facility] [address] [place] [phone] Mayi Ballard MD [address] [facility] [address] [place] [address] Scheduled Procedures Name Priority Associated Diagnoses Date/Ti [...] documented as of this encounter Care Teams House Decorator Relationship Specialty Start Date End Date Thiago Gregory APRN [address] [facility] [place] [address] PCP - General 03/20/24 Doug Bill RN ```````````````````````CH - PACU - MAJOR, PAV A Registered Nurse 12/23/24 documented as of this encounter
--- OUTSIDE RECORDS SUMMARY | 2025-05-03 11:46 | XMS_ITS | Clinical Summary ---
Author Organization [facility] Address [address] [place] [address] Care Team Providers Care Logistics System Engineer Name Role Phone Unavailable Primary Care Provider Unavailabl e Allergies Active Allergy Reactions Criticality Noted Date Comments Prochlorperazine Nausea Only,Myalgia 04/25/2022 Muscle tightness (neck) Medications methylPREDNISolon e (MEDROL) 4 MG dose pack Take as directed on package instructions. 21 tablet 3 Active lisinopril (PRINIVIL,ZESTRIL ) 40 MG tabletIndications :Essential hypertension Take 1 tablet by mouth Daily. 90 tablet 1 3 Active Active Problems Problem Noted Date Diagnosed Date Essential hypertension 04/25/2022 Social History Tobacco Use Types Packs/Day Years Used Date Smoking Tobacco: Former Cigarettes Q uit: 1986 Smokeless Tobacco: Never Alcohol Use Standard Drinks/Week Comments Not Currently 0 (1 standard drink = 0.6 oz pur e alcohol) stopped 3 months ago PHQ-2 Answer Date Recorded Retired PHQ-9: Brief Depression Severity Measure Score 9 04/25/2022 Sex and Gender Information Value Date Recorded Sex Assigned at Not on file Legal Sex Male 1:15 PM EDT Gender Identity Not on file Sexual Orientation Not on file Last Filed Vital Signs Vital Sign Reading Time Taken Comments Blood Pressure 130/70 04/25/2022 2:22 PM EDT Pulse 75 04/25/2022 2:22 PM EDT Temperature 37 C (98.6 F) 04/25/2022 2:22 PM EDT Respiratory Rate 20 04/25/2022 2:22 PM EDT Oxygen Saturation 98% 04/25/2022 2:22 PM EDT Inhaled Oxygen Concentration - - Weight 73.8 kg (162 lb 12.8 oz) 04/25/2022 2:22 PM EDT Height 177.8 cm (5' 10 ) 04/25/2022 2:22 PM EDT Body Mass Index 23.36 04/25/2022 2:22 PM EDT Plan of Treatment Health Maintenance Due Date Last Done Comments TDAP/TD VACCINES (1 - Tdap) 1973 COLOGUARD 1999 COLON CANCER SCREENING 5 YEA R SIGMOIDOSCOPY [address] COLONOGRAPHY 1999 FECAL OCCULT BLOOD TEST 1999 FIT Testing (1 year) 1999 Pneumococcal Vaccine 50+ (1 of 1 - PCV) 01/26/2004 AAA SCREEN ONCE 2019 ZOSTER VACCINE (2 of 2) 04/01/2020 02/05/2020 ANNUAL WELLNESS VISIT 04/25/2022 HEPATITIS C SCREENING 04/25/2022 COVID-19 Vaccine (2023-2 5 season) 2024 01/15/2022, 07/27/2021, 12/07/2020 INFLUENZA VACCINE 06/30/2025 07/23/2022, , 11/28/2021, Additional history exists COLONOSCOPY 06/30/2029 06/30/2019 (Xochitl ent-Reported (Performed Externally)) COLORECTAL CANCER SCREENING 06/30/2029 Insurance MEDICARE A & B [place] [id number]
== END 2025-05-03 23:59 | disposition home or self-care (01) ==
LOC: LAB 11:42
PROVIDERS: PCP Nurse Practitioner Family; Visit Provider Urology
DX: N13.5 Crossing vessel and stricture of ureter without hydronephrosis (principal)
CPT/HCPCS: 87086

== ENCOUNTER 2025-09-21 12:56 | Outpatient (CLI) | payer MEDICARE, OTHER, SELFPAY ==
--- OUTSIDE RECORDS SUMMARY | 2025-09-16 16:30 | XMS_ITS | Encounter Summary ---
Author Organization Healthcare Address [address] [place] [id number] Care Team Providers Care Awning Craftsperson Name Role Phone Thiago Gregory APRN Primary Care Provider [phone] Doug Bill RN Unavailable Unavailable Reason for Visit * Reason Comments Follow-up Encounter Details Date Type Department Care Team (Latest Contact Info) Description 09/16/2025 4:30 PM EST Office Visit Medical Office Building Urology [address] [facility], [address] [place] [address] Talib Serna MD [address] [place] [address] Hydronephrosis of right kidney (Primary [...] Date Recorded Patient Health Questionnaire-2 Score 0 09/16/2025 Hunger Vital Sign Answer Date Recorded Within [...] in the past 12 m [facility], were you homeless or living in a [...] drink first t nigel in the morning (EYE-AIRPORT OPERATIONS DUTY MANAGER) to steady your nerves or to [...] Sign Reading Time Taken Comments Blood Pressure - - Pulse - - Temperature - - Respiratory Rate - - Oxygen Saturation - - Inhaled Oxygen Concentration - - Weight 77.6 kg (171 lb) 09/16/2025 2:26 PM EST Height 177.8 cm (5' 10 ) 09/16/2025 2:26 PM EST Body Mass Index 24.54 09/16/2025 2:26 PM EST documented in this encounter Functional Status * Over the past 2 weeks, how often have you been bothered by any of the following problems? Question Answer Date of Assessment Author Little interest or pleasure in doing things Not at all 09/16/2025 2:28 PM EST [place], Renetta Feeling down, depressed, or hopeless Not at all 09/16/2025 2:28 PM EST Mackenzie, Renetta Patient Health Questionnaire -2 Score 0 09/16/2025 2:28 PM EST Mackenzie, Renetta documented as of this encounter Miscellaneous Notes * Progress Notes - Talib Serna MD - 09/16/2025 4:30 PM EST TELEHEALTH VISIT HPI: Parth Pratt is a [...] significant right sided flank and abdominal pain. Hepresented to the ED and CT imaging showed right hydronephrosis and contrast extravasation outside of collecting system at the proximal ureter. He was taken to the OR the following day for cysto, RPG,diagnostic URS, and Tria stent placement. His pain improved and he was discharged home a couple days later. He generally tolerated the stent well through the summer and in April returned to the OR for endoscopic evaluation and, ultimately, stent exchange. He was noted to have some mild narrowing at the UPJ but no evidence of urothelial defects or randy stricture. Contrast did not appear to drain quicklyfrom his kidney, although it was not clear if that was related to prolonged stenting or obstruction. Since then, he has generally done well. He says he had a few days around [place] when he had significant discomfort but then that resolved spontaneously. He is currently tolerating the stent well. Current Outpatient Medications Medication Instructions acetaminophen (TYLENOL) 1,000 mg, Every 6 hours PRN colchicine (COLCRYS) 0.6 mg, Oral, 2 times daily fluorouracil (Efudex) 5 % cream hydrocortisone 2.5 % cream ibuprofen 600 mg, Every 6 hours PRN lisinopril 20 mg, Weekly methocarbamol (ROBAXIN) 500 mg, Oral, 4 times daily naloxone (NARCAN) 4 mg, Nasal, As needed oxyCODONE (ROXICODONE) 5 mg, Oral, Every 6 hours PRN tamsulosin (FLOMAX) 0.4 mg, Oral, Nightly Past Medical History[1] Surgical History[2] Social History[3] Family History[4] PE: GEN: No acute distress PULM: No audible wheezing or stridor, non-labored respirations Psych: Answered questions appropriately with normal affect LABS: Creatinine, Plasma (mg/dL) Date/Time Value 07/16/2025904 0.74 eGFRcr (mL/min/1.73m*2) Date/Time Value 07/16/2025904 96.9 Total Calcium, Plasma (mg/dL) Date/Time Value 07/16/2025904 9.6 IMPRESSION: 70 y.o. male with proximal and distal ureteral obstruction on the right now status post complex reconstructive procedures, currently managed with indwelling stent. PLAN: We again discussed options for next steps, including continued management with indwelling stent or office removal of the stent to see how things go. He has a maintaining exhibit in October but wouldlike to have the stent removed in November to see how he feels. Talib Serna MD, MPH Telehealth Statement Patient Verification Patient identity has been confirmed using name and date of ? Yes Authorizations and Agreements/Telemedicine Consent sent and consent confirmed? Yes Patient Location: Home/Other Patient confirms they are physically located in [place]? Yes If the patient is not physically located in [place], the provider has confirmed with On [facility] thatthe provider is authorized to provide services in patient's stated location? Yes Provider Location: [facility] facility Audio and video or audio only? Audio and video Total visit time: 13 minutes [1] Past Medical History: Diagnosis Date [...] History: Procedure Laterality Date COLONOSCOPY CYSTOSCOPY 12/15/2024 ([facility]) cystosopy, ANTEGRADE URETEROSCOPY, right nephrostomy tube exchange (Ureter) URETEROSCOPY (Right) INSERTION OR REPLACEMENT, NEPHROSTOMY TUBE (Right) HIP ARTHROPLASTY Bilateral KIDNEY STONE SURGERY LIVER BIOPSY NEPHROSTOMY 12/04/2024 ([facility]) INSERTION OR REPLACEMENT, NEPHROSTOMY TUBE (Right) PROSTATE BIOPSY SHOULDER SURGERY Left cadaver tendon placed in shoulder TONSILLECTOMY UPPER GASTROINTESTINAL ENDOSCOPY URETEROSCOPY 11/30/2024 ([facility]) URETEROSCOPY, RIGHT RETROGRADE (Right) CYSTOSCOPY [...] use: Yes Types: Marijuana Comment: 4 times weekly, last smoked 4 days ago [4] Family History Problem Relation Name Age of Onset Hyperthyroidism Sister Damaso Zimmerman Neg Hx documented in this encounter Plan of Treatment Upcoming Encounters Date Type Department Care Team ([facility] Contact Info) Description 10/21/2025 11:00 AM EST Office Visit [facility] Medicine Specialties [address] [place] [address] Mayi Ballard MD [address] [facility] [address] [place] [address] 12/02/2025 8:40 AM EST Office Visit [facility] Medicine Specialties [address] [place] [address] Tiki Castillo MD [address] [place] [address] 12/02/2025 2:30 PM EST Office Visit Medical Office Building Urology [address] [facility], [address] [place] [address] Talib Serna MD [address] [facility] [address] [place] [address] documented as of this encounter Visit Diagnoses Diagnosis Hydronephrosis of right kidney- Primary Hydronephrosis documented in this encounter Additional Health Concerns Assessment Noted Time PHQ-9 Depression Total Score: 0 04/29/20 25 8:40 AM EDT A fall risk assessment has been complete d for the patient 09/16/2025 2:28 PM EST A Body Mass Index follow-up plan has been documented for the patient 09/16/2025 5:01 PM EST documented as of this encounter Care Teams Awning Craftsperson Relationship Specialty Start Date End Date Thiago Gregory APRN [address] PCP - General 03/20/24 Doug Bill RN `````````````````````````CH - PACU - MAJOR, PAV A None Registered Nurse 12/23/24 documented as of this encounter
--- OUTSIDE RECORDS SUMMARY | 2025-09-21 12:59 | XMS_ITS ---
Laboratory report Created on: August 31, 2025 MERLENE JACKSON : 1955 Sex: Male Author Organization Unknown PROBLEMS Problems List Code Description RESULTS Laboratory Orders Date Order Code Test 2024-09-29 [id number] STOOL CULTURE Laboratory Results Date LOINC Test Value Unit Reference Range Interpre tation 2024-09-29 65582-4 SALMONELLA/SHIGE LLA SCREEN FINAL 2024-09-29 6463-4 RESULT 1 NSS 2024-09-29 6331-3 CAMPYLOBACTER CULTURE FINAL 2024-09-29 6463-4 RESULT 1 NCI 2024-09-29 85490-2 E COLI SHIGA TOXIN EIA N NEGATI VE
--- OUTSIDE RECORDS SUMMARY | 2025-09-21 12:59 | XMS_ITS ---
Laboratory report Created on: August 31, 2025 MERLENE JACKSON : 1955 Sex: Male Author Organization Unknown PROBLEMS Problems List Code Description RESULTS Laboratory Orders Date Order Code Test 2023-10-18 [id number] HCV RT-PCR, RUSS T (NON-GRAPH) 2023-10-18 [id number] PANEL [id number] Laboratory Results Date LOINC Test Value Unit Reference Range Interpre tation 2023-10-18 08470-4 HEPATITIS C QUANTITATION HCVTND IU/ML 2023-10-18 38132-2 HEP C VIRUS AB HERO NON REACTIVE A
--- OUTSIDE RECORDS SUMMARY | 2025-09-21 12:59 | XMS_ITS | Encounter Summary ---
Author Organization Healthcare Address [address] [id number] Care Team Providers Care Process Safety Management Engineer Name Role Phone Thiago Gregory APRN Primary Care Provider [phone] Doug Bill RN Unavailable Unavailable Reason for Referral * (Routine) - Incomplete Specialty Diagnoses / Procedures Referred By Twila metzger Referred To Contact Diagnoses Ureteropelvic junction (UPJ) obstruction, right Procedures Cysto- Urology Talib Serna MD [email or web address] [address] Phone: tel: fax: Referral ID Status Reason Start Date Expiration Date V isits Requested Visits Authorized [id number] Incomplete 09/17/2025 03/19/2027 1 1 Encounter Details Date Type Department Care Team ([facility] Contact Info) Description 09/17/2025 Orders Only Medical Office Building Urology [address] [facility], [address] [place] [address] Talib Serna MD [email or web address] [place] [address] Ureteropelvic junction (UPJ) obstruction, right [...] any time in the past 12 m [facility], were you homeless or living in [...] drink first t nigel in the morning (EYE-ARCHITECTURAL DESIGNER) to steady your nerves or to get [...] Care Team (Late st Contact Info) Description 10/21/2025 11:00 AM EST Office Visit [facility] Medicine Specialties [address], [address] [place] [address] Mayi Ballard MD [address] [place] [address] 12/02/2025 8:40 AM EST Office Visit [facility] Medicine Specialties [address], [address] [place] [address] Tiki Castillo MD [address], [place] [id number] 12/02/2025 2:30 PM EST Office Visit Medical Office Building Urology [address] [facility], [address] [place] [address] Talib Serna MD [address] [place] [phone] Scheduled Orders Name Type Priority Associated Diagnoses Orde r Schedule Cysto- Urology Procedure Routine Ureteropelvic junction (UPJ) obstruction, right 1 Occurrences starting 09/17/2025 until 03/21/2027 documented as of this encounter Visit Diagnoses Diagnosis Ureteropelvic junction (UPJ) obstruction, right- Primary documented in this encounter Additional Health Concerns Assessment Noted Time PHQ-9 Depression Total Score: 0 04/29/20 25 8:40 AM EDT A fall risk assessment has been complete d for the patient 09/16/2025 2:28 PM EST A Body Mass Index follow-up plan has been documented for the patient 09/16/2025 5:01 PM EST documented as of this encounter Care Teams Process Safety Management Engineer Relationship Specialty Start Date End Date Thiago Gregory APRN [id number] PCP - General 03/20/24 Doug Bill, RN `````````````````````````CH - PACU - MAJOR, PAV A None Registered Nurse 12/23/24 documented as of this encounter
--- OUTSIDE RECORDS SUMMARY | 2025-09-21 12:59 | XMS_ITS ---
Laboratory report Created on: August 31, 2025 MERLENE JACKSON : 1955 Sex: Male Author Organization Unknown PROBLEMS Problems List Code Description RESULTS Laboratory Orders Date Order Code Test 2024-10-03 [id number] HCV ANTIBODY RFX TO QUANT PCR Laboratory Results Date LOINC Test Value Unit Reference Range Interpre tation 2024-10-03 [id number] HCV AB HERO NON REACTIVE A 2024-10-03 [id number] HEPATITIS C QUANTITATION HCVTND IU/ML 2024-10-03 [id number] INTERPRETATION: NNAT
--- OUTSIDE RECORDS SUMMARY | 2025-09-21 12:59 | XMS_ITS ---
Laboratory report Created on: August 31, 2025 MERLENE JACKSON : 1955 Sex: Male Author Organization Unknown PROBLEMS Problems List Code Description RESULTS Laboratory Orders Date Order Code Test 2024-09-28 [id number] HCV ANTIBODY RFX TO QUANT PCR Laboratory Results Date LOINC Test Value Unit Reference Range Interpre tation 2024-09-28 [id number] HCV AB HERO NON REACTIVE A 2024-09-28 44434-8 HEPATITIS C QUANTITATION HCVTND IU/ML 2024-09-28 [id number] INTERPRETATION: NNAT
--- OUTSIDE RECORDS SUMMARY | 2025-09-21 12:59 | XMS_ITS | Encounter Summary ---
Author Organization Healthcare Address [address] [place] [address] Care Team Providers Care Tamper Operator Name Role Phone Thiago Gregory APRN Primary Care Provider [phone] Doug Bill RN Unavailable Unavailable Encounter Details Date Type Department Care Team (Late st Contact Info) Description 06/21/2025 Telephone [facility] Medicine Specialties [address], [address] [place] [address] Mayi Ballard MD [address] [place] [address] Social History Tobacco Use Types [...] Date Recorded Patient Health Questionnaire-2 Score 0 07/16/2025 Hunger Vital Sign Answer Date Recorded Within [...] any time in the past 12 m [facility], were you homeless or living in [...] drink first t nigel in the morning (EYE-METHANE GAS COLLECTION SYSTEM OPERATOR) to steady your nerves or to [...] pleasure in doing things Not at all 07/16/2025 7:39 AM EDT Geovanna Adams Feeling down, depressed, or hopeless Not at all 06/30 7:39 AM EDT Geovnana Adams Patient Health Questionnaire-2 Score 0 06/30 7:39 AM EDT Geovanna Adams documented as of this encounter Miscellaneous Notes * Telephone Encounter - Valery Briones - 06/28/2025 2:04 PM EDT Clinical Concern/Question Reason for Call: Pt is returning your call Best contact number: [phone] (mobile) Optimal time of day to reach caller: ANYTIME Additional comments/information from caller: None Note: Please do not reply to this message. Follow-up communication and further actions as a result of this message need to be communicated with the patient directly, if the patient is not active onMyChart. If the patient is active on MyChart, they will receive notification of the communication/outcome via [employer]. * Telephone Encounter - Fabiola Boggs RN - 06/28/2025 2:01 PM EDT Called for patient--no answer, LVM. Adv to contact us back to schedule shoulder injections with . * Telephone Encounter - Kassy Guzmán - 06/21/2025 11:40 AM EDT Clinical Concern/Question Reason for Call: Pt is calling to schedule injections for his shoulder. Please call. Best contact number: [phone] (mobile) Optimal time of day to reach caller: ANYTIME Additional comments/information from caller: None Note: Please do not reply to this message. Follow-up communication and further actions as a result of this message need to be communicated with the patient directly, if the patient is not active onMyChart. If the patient is active on MyChart, they will receive notification of the communication/outcome via [employer]. documented in this encounter Plan of Treatment Upcoming Encounters Date Type Department Care Team ([facility] Contact Info) Description 10/21/2025 11:00 AM EST Office Visit [facility] Medicine Specialties [address], [address] [place] [address] Mayi Ballard MD [address] [facility] [address] [place] [address] 12/02/2025 8:40 AM EST Office Visit [facility] Medicine Specialties [address], [address] [place] [address] Tiki Castillo MD [address] [place] [address] 12/02/2025 2:30 PM EST Office Visit Medical Office Building Urology [address] [facility], [address] [place] [address] Talib Srena MD [address] [facility] [address] [place] [address] documented as of this encounter [...] documented as of this encounter Care Teams Tamper Operator Relationship Specialty Start Date End Date Thiago Gregory APRN [id number] PCP - General 03/20/24 Doug Bill RN `````````````````````````CH - PACU - MAJOR, PAV A None Registered Nurse 12/23/24 documented as of this encounter
--- OUTSIDE RECORDS SUMMARY | 2025-09-21 12:59 | XMS_ITS | Encounter Summary ---
Author Organization [facility] Address [address] [id number] Care Team Providers Care Professor Of Physics Name Role Phone Thiago Gregory APRN Primary Care Provider [phone] Doug Bill RN Unavailable Unavailable Encounter Details Date Type Department Care Team (Latest Contact Info) Description 09/16/2025 Travel Social History Tobacco Use Types Packs/Day [...] any time in the past 12 m [facility], were you homeless or living in [...] drink first t nigel in the morning (EYE-WIND OPERATIONS SUPERVISOR) to steady your nerves or to [...] Not at all 09/16/2025 2:28 PM EST Renetta Mann Feeling down, depressed, or hopeless Not at all 09/16/2025 2:28 PM EST Renetta Mann Patient Health Questionnaire -2 Score 0 09/16/2025 2:28 PM EST Renetta Mann documented as of this encounter Plan of Treatment Upcoming Encounters Date Type Department Care Team (Late st Contact Info) Description 10/21/2025 11:00 AM EST Office Visit [facility] Medicine Specialties [address], [address] [place] [address] Mayi Ballard MD [address] [facility] [address] [place] [address] 12/02/2025 8:40 AM EST Office Visit [facility] Medicine Specialties [address], [address] [place] [address] Tiki Castillo MD [address] [place], [place] [id number] 12/02/2025 2:30 PM EST Office Visit Medical Office Building Urology [address] [facility], [address] [place] [address] Tailb Serna MD [address] [facility] [address] [place] [address] documented as of this encounter Visit Diagnoses [...] documented as of this encounter Care Teams Professor Of Physics Relationship Specialty Start Date End Date Thiago Gregory APRN [id number] PCP - General 03/20/24 Doug iBll, RN `````````````````````````CH - PACU - MAJOR, PAV A None Registered Nurse 12/23/24 documented as of this encounter
--- OUTSIDE RECORDS SUMMARY | 2025-09-21 12:59 | XMS_ITS ---
Laboratory report Created on: August 31, 2025 MERLENE JACKSON : 1955 Sex: Male Author Organization Unknown PROBLEMS Problems List Code Description RESULTS Laboratory Orders Date Order Code Test 2025-04-15 [id number] PSA TOTAL+% FREE Laboratory Results Date LOINC Test Value Unit Reference Range Interpre tation 2025-04-15 [id number] PROSTATE SPECIFIC AG 11.5 NG/ML 0.0-4.0 H 2025-04-15 46447-9 PSA, FREE 1.14 NG/ML N/A 2025-04-15 01171-2 % FREE PSA 9.9 %
--- OUTSIDE RECORDS SUMMARY | 2025-09-21 12:59 | XMS_ITS ---
Laboratory report Created on: August 31, 2025 MERLENE JACKSON : 1955 Sex: Male Author Organization Unknown PROBLEMS Problems List Code Description RESULTS Laboratory Orders Date Order Code Test 2024-03-30 [id number] PSA TOTAL+% FREE Laboratory Results Date LOINC Test Value Unit Reference Range Interpre tation 2024-03-30 [id number] PROSTATE SPECIFIC AG 8.8 NG/ML 0.0-4.0 H 2024-03-30 [id number] PSA, FREE .99 NG/ML N/A 2024-03-30 99501-9 % FREE PSA 11.3 %
--- OUTSIDE RECORDS SUMMARY | 2025-09-21 12:59 | XMS_ITS | Clinical Summary ---
Author Organization [facility] Address [address] [place] [address] Care Team Providers Care Squirrel Worker Name Role Phone Unavailable Primary Care Provider [...] ZOSTER VACCINE (2 of 2) 04/01/2020 02/05/2020 COVID-19 Vaccine (2 - Jansse n risk series) 02/12/2022 01/15/2022, 07/27/2021, 12/07/2020 ANNUAL WELLNESS VISIT 04/25/2022 HEPATITIS C SCREENING 04/25/2022 INFLUENZA VACCINE 04/30/2025 07/23/2022, , 11/28/2021, Additional history exists COLONOSCOPY 06/30/2029 06/30/2019 (Xochitl ent-Reported (Performed Externally)) COLORECTAL CANCER SCREENING 06/30/2029 Insurance MEDICARE A & B Member Subscriber Plan / Payer (Ef fective 2018-Present) Name:Parth Pratt Member ID:[id number] Relation to Subscriber:Self Name:Parth Pratt Subscriber ID:[id number] Payer ID:[id number] Group ID:Not on file Type:Not on file Address: [address] [place] [address]
--- OUTSIDE RECORDS SUMMARY | 2025-09-21 12:59 | XMS_ITS ---
Laboratory report Created on: August 31, 2025 MERLENE JACKSON : 1955 Sex: Male Author Organization Unknown PROBLEMS Problems List Code Description RESULTS Laboratory Orders Date Order Code Test 2024-01-30 [id number] HCV RT-PCR, RUSS T (NON-GRAPH) 2024-01-30 [id number] PANEL [id number] Laboratory Results Date LOINC Test Value Unit Reference Range Interpre tation 2024-01-30 [id number] HEPATITIS C QUANTITATION HCVTND IU/ML 2024-01-30 76895-5 HEP C VIRUS AB HERO NON REACTIVE A
--- OUTSIDE RECORDS SUMMARY | 2025-09-21 12:59 | XMS_ITS | Clinical Summary ---
Author Organization [facility] Address [address] [place] [address] Care Team Providers Care Director Of Operations For Therapy Name Role Phone Thiago Gregory APRN Primary Care Provider [phone] Doug Bill RN Unavailable Unavailable Allergies Active Allergy Reactions Criticality Noted Date Comments Chocolate Dermatitis Low 12/15/2024 Large pustules on face per patient Prochlorperazine Nausea Low 04/25/2022 Muscle tightness (neck) Medications methocarbamol (Robaxin) 500 MG tablet Take 1 tablet by mouth 4 times a day for 5 days. 20 tablet 5 Active Additional Information Patient not taking.Reported on 09/16/2025 oxyCODONE (Roxicodone) 5 MG immediate release tablet Take 1 tablet by mouth every 6 hours as needed for severe pain for up to 5 doses. 5 tablet 5 Active Additional Information Patient not taking.Reported on 09/16/2025 naloxone (Narcan) 4 mg/0.1 mL nasal spray 1. Give 1 spray in nostril for no/slow breathing or cannot wake after opioid use 2. Call 911 3. Repeat in other nostril if symptoms continue 1 each 5 Active Additional Information Patient not taking.Reported on 09/16/2025 acetaminophen (Tylenol) 500 MG tablet Take 2 [...] 2 times a day. 60 tablet 1 5 Active tamsulosin (Flomax) 0.4 MG 24 hr capsule Take 1 capsule by mouth nightly. 30 capsule 11 5 05/18/20 26 Active hydrocortisone 2.5 % cream 5 Active fluorouracil (Efudex) 5 % cream 5 Active Active Problems Problem Noted Date Diagnosed Date Ureteropelvic junction (UPJ) obstruction, right 02/17/2025 UPJ (ureteropelvic junction) obstruction 025 Ureteral stricture 12/22/2024 Hydronephrosis of right kidney 12/04/2024 Resolved Problems Problem Noted Date Diagnosed Date Resolved Date Acute postoperative abdominal pain 01/01/2025 07/04/2025 Alcohol abuse 07/01/2024 07/01/2024 Contact dermatitis 07/01/2024 4 Encephalopathy 07/01/2024 07/01/2024 Heberden's nodes of left hand 07/01/2024 07/01/2024 Hypertensive encephalopathy syndrome 07/01/2024 07/01/2024 Pain of left thumb 07/01/2024 Poison rashida dermatitis 07/01/20242023 Subcutaneous nodule of left thumb 07/01/2024 07/01/2024 Tobacco dependence due to cigarettes 07/01/2024 07/01/2024 Essential hypertension 04/25/202207/01 Encounters Date Type Department Care Team Description 09/17/2025 Orders Only Medical Office Building Urology [address] [facility], [address] [place] [address] Talib Serna MD Ureteropelvic junction (UPJ) obstruction, right (Primary Dx) 09/16/2025 4:30 PM EST Office Visit Medical Office Building Urology [address] [facility], [address] [place] [address] Talib Serna MD Hydronephrosis of right kidney (Primary Dx) 09/16/2025 Travel 08/30/2025 Telephone [facility] Urology [address], [address] [place] [address] Talib Serna MD HCN Clinical Concern/Question 07/16/2025 7:40 AM EDT Office Visit [facility] Medicine Specialties [address], [address] [place] [address] Tiki Castillo MD Primary osteoarthritis of both shoulders (Primary Dx); 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; Primary osteoarthritis of knees, bilateral; On colchicine therapy 07/16/2025 Travel from Last 3 Months Immunizations Immunization [...] any time in the past 12 m [facility], were you homeless or living in [...] drink first t nigel in the morning (EYE-SILK SCREEN PRINTER HELPER) to steady your nerves or to [...] Sign Reading Time Taken Comments Blood Pressure 139/82 07/16/2025 7:33 AM EDT Pulse 72 07/16/2025 7:33 AM EDT Temperature 36.7 C (98 F) 07/16/2025 7:33 AM EDT Respiratory Rate 16 07/16/2025 7:33 AM EDT Oxygen Saturation 99% 07/16/2025 7:33 AM EDT Inhaled Oxygen Concentration - - Weight 77.6 kg (171 lb) 09/16/2025 2:26 PM EST Height 177.8 cm (5' 10 ) 09/16/2025 2:26 PM EST Body Mass Index 24.54 09/16/2025 2:26 PM EST Plan of Treatment Upcoming Encounters Date Type Department Care Team (Late st Contact Info) Description 10/21/2025 11:00 AM EST Office Visit [facility] Medicine Specialties [address], [address] [place] [id number] Mayi Ballard MD [address] [facility] [address] [place] [address] 12/02/2025 8:40 AM EST Office Visit [facility] Medicine Specialties [address], [address] [place] [address] Tiki Castillo MD [address] [place] [address] 12/02/2025 2:30 PM EST Office Visit Medical Office Building Urology [address] [facility], [address] [place] [phone] Talib Serna MD [address] [facility] [address] [place] [address] Health Maintenance Due Date Last Done Comments [facility] Annual Wellness (AWV) 1955 [facility]-/Child/Adol SDOH Screenings 1955 [facility]-DTaP,Tdap,and Td Vaccines (1 - Tdap) 1973 CT Colonography 1999 Colonoscopy 1999 FIT-DNA 1999 FIT 1999 FOBT 1999 Sigmoidoscopy 1999 [facility]-Colorectal Cancer Screening 1999 [facility]-Abdominal Aortic Aneurysm (AAA) Screening 2019 [facility]-Zoster Vaccines (2 of 2) 04/01/2020 02/05/2020 [id number] Vaccine ( season) 2025 08/19/2024, 08/09/2023, 07/23/2022, Additional history exists [facility]- SDOH Screenings 06/09/2025 [facility]-Adult SDOH Screenings 06/09/2025 12/07/2024 [facility]-Depression Screening 09/16/2026 09/16/2025, 04/01 [facility]-Hepatitis C Screening Completed 04/10/2024, 08/2024 [facility]-RSV Vaccine: 60+ Years or Completed 08/19/2024 [facility]-Influenza Vaccine Completed 07/15/2025 , 08/19/2024, 08/09/2023, Additional history exists [facility]-Pneumococcal Vaccine: 50+ Years Completed 07/15/2025 HPV Vaccines (No Doses Required) Completed [facility]-HIB Vaccines Aged Out No longer e [...] on patient's age to complete this topic Medical Devices Implanted Type Area Cable Weaver Device Identifier Shelf Expiration Date Model / Serial / Lot Hip Hip Bilateral: Hip Stent Ureteral Tria Firm Monofilament 7f/24cm - [id number] Implanted:Qty: 1 on 12/22/2024 by Talib Serna MD at [facility] Stent Right: Ureter Image Engine Design-[id number] 07/23/2027 [id number] 20 / / [id number] Stent Ureteral Double Pigtail Pos 6fr 22cm - [id number] - [id number] Implanted:Qty: 1 on 02/17/2025 by Talib Serna MD at [facility] Stent Micro[employer] [id number] 07/01/2025 [id number] 20 / [id number] 20 / [id number] Stent Ureteral Tria Firm Monofilament 7f/22cm - [id number] Implanted:Qty: 1 on 03/17/2025 by Talib Serna MD at [facility] Stent Right: Ureter Image Engine Design-[id number] 10/30/2026 [id number] 10 / / [id number] Stent Ureteral Tria Firm Monofilament 7f/22cm - [id number] Implanted:Qty: 1 on 05/17/2025 by Talib Serna MD at [facility] Right: Ureter [employer]-[id number] 05/28/2027 [id number] 10 / / [id number] Procedures Procedure Name Priority Date/Time Associated Diagnosis Comments LARGE JOINT ARTHROCENTESIS Routine 07/16/2025 10:44 AM EDT 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 CBC WITH AUTO DIFFERENTIAL Routine 07/16/2025 9:05 AM EDT 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 COMPREHENSIVE METABOLIC PANEL, PLASMA Routine 07/16/2025 9:05 AM EDT 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 HEPATITIS C ANTIBODY W/REFLEX TO HCV QUANT PCR Routine 04/10/2024 11:20 AM EDT High risk medication use from Last 3 Months or Most Recently Relevant to Health Maintenance Results * Injection / Aspiration - Large Joint (07/16/2025 10:44 AM EDT) Ryne Sheridan MD - 07/16/2025 10:44 AM EDT Ryne Rodriguez MD 07/16/2025 2:36 PM Injection / Aspiration - Large Joint on 07/16/2025 10:44 AM Indications: pain Details: 25 G needle, posterior approach Bilateral shoulder injection with 40 mg of Kenalog and 2 ml of 1% of Lidocaine to each side The pt tolerated procedure well , with no immediate complications. Procedure, treatment alternatives, risks and benefits explained, specific risks discussed. Consent was given by the patient. Immediately prior to procedure a time out was called to verify the correct patient, procedure, equipment, support analyst and site/side marked as required. Patient was prepped and draped in the usual sterile fashion. Ryne Rodriguez MD IN CLINIC/BEDSIDE ORDER JERROD Final Result * (ABNORMAL) CBC and differential (07/16/2025 9:05 AM EDT) WBC Count 9.99 3.70 - 10.30 10*3/uL LAB HEMATOLOGY METHOD 07/16/2025 10:06 AM EDT [facility] RBC Count 5.19 4.60 - 6.10 10*6/uL LAB HEMATOLOGY METHOD 07/16/2025 10:06 AM EDT [facility] HGB 16.0 13.7 - 17.5 g/dL LAB HEMATOLOGY METHOD 07/16/2025 10:06 AM EDT [facility] HCT 47.1 40.0 - 51.0 % LAB HEMATOLOGY METHOD 07/16/2025 10:06 AM EDT [facility] Platelet Count 155 155 - 369 10*3/uL LAB HEMATOLOGY METHOD 07/16/2025 10:06 AM EDT [facility] MCV 91 79 - 98 fL LAB HEMATOLOGY METHOD 07/16/2025 10:06 AM EDT [facility] MCH 30.8 26.0 - 32.0 pg LAB HEMATOLOGY METHOD 07/16/2025 10:06 AM EDT [facility] MCHC 34.0 30.7 - 35.5 g/dL LAB HEMATOLOGY METHOD 07/16/2025 10:06 AM EDT [facility] RDW 12.8 11.5 - 14.5 % LAB HEMATOLOGY METHOD 07/16/2025 10:06 AM EDT [facility] MPV 11.7 8.8 - 12.5 fL LAB HEMATOLOGY METHOD 07/16/2025 10:06 AM EDT [facility] nRBC 0.0 <=0.0 per 100 WBCs LAB HEMATOLOGY METHOD 07/16/2025 10:06 AM EDT [facility] Differential Type Automated LAB HEMATOLOGY METHOD 07/16/2025 10:06 AM EDT [facility] Neutrophils % 61 % LAB HEMATOLOGY METHOD 07/16/2025 10:06 AM EDT [facility] Lymphocytes % 22 % LAB HEMATOLOGY METHOD 07/16/2025 10:06 AM EDT [facility] Monocytes % 10 % LAB HEMATOLOGY METHOD 07/16/2025 10:06 AM EDT [facility] Eosinophils % 6 % LAB HEMATOLOGY METHOD 07/16/2025 10:06 AM EDT [facility] Basophils % 1 % LAB HEMATOLOGY METHOD 07/16/2025 10:06 AM EDT [facility] Immature Granulocytes % 0 % LAB HEMATOLOGY METHOD 07/16/2025 10:06 AM EDT [facility] Neutrophils Absolute 6.10 1.60 - 6.10 10*3/uL LAB HEMATOLOGY METHOD 07/16/2025 10:06 AM EDT [facility] Lymphocytes Absolute 2.20 1.20 - 3.90 10*3/uL LAB HEMATOLOGY METHOD 07/16/2025 10:06 AM EDT [facility] Monocytes Absolute 0.99(H) 0.30 - 0.90 10*3/uL LAB HEMATOLOGY METHOD 07/16/2025 10:06 AM EDT [facility] Eosinophils Absolute 0.62(H) 0.00 - 0.50 10*3/uL LAB HEMATOLOGY METHOD 07/16/2025 10:06 AM EDT [facility] Basophils Absolute 0.05 0.00 - 0.10 10*3/uL LAB HEMATOLOGY METHOD 07/16/2025 10:06 AM EDT [facility] Immature Granulocytes Absolute 0.03 0.00 - 0.06 10*3/uL LAB HEMATOLOGY METHOD 07/16/2025 10:06 AM EDT [facility] Blood Venous blood specimen / Unknown Venipuncture / Unknown 07/16/2025 9:05 AM EDT 07/16/2025 9:05 AM EDT [facility] - 07/16/2025 10:06 AM EDT Therapeutic decision making should be based on absolute values, rather than percentages. us Ryne Rodriguez MD LAB BLOOD ORDERABLES Fi nal Result [facility] [address] [place] [address] * Comprehensive metabolic panel (07/16/2025 9:05 AM EDT) Glucose, Plasma 90 74 - 99 mg/dL 07/16/2025 10:11 AM EDT [facility] BUN, Plasma 12 8 - 23 mg/dL 07/16/2025 10:11 AM EDT [facility] Creatinine, Plasma 0.74 0.70 - 1.20 mg/dL 07/16/2025 10:11 AM EDT [facility] BUN/Creatinine Ratio 16 07/16/2025 10:11 AM EDT [facility] Sodium, Plasma 138 136 - 145 mmol/L 07/16/2025 10:11 AM EDT [facility] Potassium, Plasma 4.4 3.6 - 4.9 mmol/L 07/16/2025 10:11 AM EDT [facility] Chloride, Plasma 102 97 - 107 mmol/L 07/16/2025 10:11 AM EDT [facility] CO2, Plasma 29 22 - 29 mmol/L 07/16/2025 10:11 AM EDT [facility] Anion Gap 7 6 - 16 mmol/L 07/16/2025 10:11 AM EDT [facility] Total Calcium, Plasma 9.6 8.9 - 10.2 mg/dL 07/16/2025 10:11 AM EDT [facility] Total Protein 7.3 6.3 - 7.9 g/dL 07/16/2025 10:11 AM EDT [facility] Albumin, Plasma 4.3 3.5 - 5.2 g/dL 07/16/2025 10:11 AM EDT [facility] AST, Plasma 16 10 - 50 U/L 07/16/2025 10:11 AM EDT [facility] ALT, Plasma 14 10 - 50 U/L 07/16/2025 10:11 AM EDT [facility] Alkaline Phosphatase, Plasma 66 40 - 115 U/L 07/16/2025 10:11 AM EDT [facility] Total Bilirubin, Plasma 0.6 0.2 - 1.1 mg/dL 07/16/2025 10:11 AM EDT [facility] eGFRcr 96.9 mL/min/1.7 3m*2 07/16/2025 10:11 AM EDT [facility] Comment:Reported eGFRcr in m L/min/1.73m2 is based the CKD-EPI 2020 equation that does not use a race coefficient. Blood Venous blood specimen / Unknown Venipuncture / Unknown 07/16/2025 9:05 AM EDT 07/16/2025 9:05 AM EDT Ryne Rodriguez MD LAB BLOOD ORDERABLES Fi nal Result Performing Organization Address [facility] Co de Phone Number [facility] [address] [place] [address] * (ABNORMAL) Hepatitis C Antibody (04/10/2024 11:20 AM EDT) Hepatitis C Antibody Positive( A) Negative 04/10/2024 2:14 PM EDT [facility] Comment:This specimen is aleksandr ng sent for confirmation by RT-PCR. Blood Venous blood specimen / Unknown Venipuncture / Unknown 04/10/2024 11:20 AM EDT 04/10/2024 11:21 AM EDT Ryne Rodriguez MD LAB BLOOD ORDERABLES Fi nal Result Performing Organization Address City/[facility] Co de Phone Number [facility] [address] [place] [address] from Last 3 Months or Most Recently Relevant to Health Maintenance Insurance MEDICARE GENERIC COMMERCIAL Advance Directives * Full Code (Latest Code [...] decision-making capacity? Yes Care Teams Director Of Operations For Therapy Relationship Specialty Start Date End Date Thiago Gregory APRN [id number] PCP - General 03/20/24 Doug Bill, RN `````````````````````````CH - PACU - MAJOR, PAV A None Registered Nurse 12/23/24
--- OUTSIDE RECORDS SUMMARY | 2025-09-21 12:59 | XMS_ITS | Encounter Summary ---
Author Organization Healthcare Address [address] [id number] Care Team Providers Care Mill Roll Operator Name Role Phone Thiago Gregory APRN Primary Care Provider [phone] Doug Bill RN Unavailable Unavailable Reason for Visit * Reason Onset Date Comments HCN Clinical Concern/Question 08/30/2025 Encounter Details Date Type Department Care Team (Late st Contact Info) Description 08/30/2025 Telephone [facility] [address] [place] [address] Talib Serna MD [address] [place] [address] HCN Clinical Concern/Question Social History [...] drink first t nigel in the morning (EYE-LICENSED NURSING ASSISTANT) to steady your nerves or to [...] encounter Miscellaneous Notes * Telephone Encounter - Geovanna Bee RN - 09/01/2025 9:04 AM EST Spoke with patient and relayed Dr. Serna's recommendation. He voiced understanding and will present to ED if pain warrants. Confirmed 09/16 appointment at 4:30, virtual. No further questions. * Telephone Encounter - Adalgisa Black - 08/30/2025 3:52 PM EST Clinical Concern/Question Reason for Call: Patients is having symptoms recently. He is having kidney pains and some cause himto wince. Goes away with urination . Is having tightness in kidney, back and pelvic area Askin gif any test should be done before his TH , thinks appt is 09/08 Best contact number: [phone] (mobile) Optimal time of day to reach caller: ANYTIME Additional comments/information from caller: None Note: Please do not reply to this message. Follow-up communication and further actions as a result of this message need to be communicated with the patient directly, if the patient is not active onMyChart. If the patient is active on MyChart, they will receive notification of the communication/outcome via [email or web address]. documented in this encounter Plan of Treatment Upcoming Encounters Date Type Department Care Team (Late st Contact Info) Description 10/21/2025 11:00 AM EST Office Visit [facility] [address] [place] [address] Mayi Ballard MD [address] [facility] [address] [place] [address] 12/02/2025 8:40 AM EST Office Visit [facility] Specialties [address] [place] [address] Tiki Castillo MD [address] [place] [address] 12/02/2025 2:30 PM EST Office Visit Medical Office Building Urology [address] [facility], [address] [place] [address] Talib Serna MD [address] [place] [address] documented as of this encounter Visit Diagnoses Not on filedocumented in this encounter Additional Health Concerns Assessment Noted Time PHQ-9 Depression Total Score: 0 04/29/20 8:40 AM EDT A fall risk assessment has been complete d for the patient 07/16/2025 7:39 AM EDT A Body Mass Index follow-up plan has been documented for the patient 07/16/2025 2:37 PM EDT documented as of this encounter Care Teams Mill Roll Operator Relationship Specialty Start Date End Date Thiago Gregory APRN [id number] PCP - General 03/20/24 Doug Bill, RN `````````````````````````CH - PACU - MAJOR, PAV A None Registered Nurse 12/23/24 documented as of this encounter
--- OUTSIDE RECORDS SUMMARY | 2025-09-21 13:00 | XMS_ITS ---
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
[2025-09-21 14:30] VITALS: PULSE 63; PULSE 64
[2025-09-21] MEDS: ALBUTEROL 0.083% 2.5 MG/3 ML NEB IH (14:30)
--- NOTE | 2025-09-21 14:30 | CT_ITS ---
FINAL REPORT CLINICAL HISTORY: lung cancer screening former smoker x 30years 2ppd x 18 years COMPARISON: None FINDINGS: CT CHEST LOW DOSE SCREENING HISTORY: Screening exam for lung cancer. 70-year-old male, former smoker for 30 years, 08-lrmf-dxpb history. DOSE: CTDI vol: 2.90 mGy, DLP: 115.94 mGy*cm TECHNIQUE: Axial CT without IV contrast administration using low dose protocol. This study was performed with techniques to keep radiation doses as low as reasonably achievable, (ALARA). Individualized dose reduction techniques using automated exposure control or adjustment of mA and/or kV according to the patient's size were employed. No acute lung disease is present. No pulmonary lesions are seen suspicious for neoplasm. No pleural or pericardial effusion is seen. No adenopathy or mass lesion is present. The noted left renal mass seen on prior CT examination of the abdomen and pelvis is compatible with a known cyst. IMPRESSION: No evidence of lung cancer LUNG RADS CATEGORY 1 RECOMMENDATION: 12 month LDCT follow up Reviewed, Interpreted and Dictated by Milagro Barraza MD Transcribed by Celeste Winchester Authenticated and [facility]
== END 2025-09-21 23:59 | disposition home or self-care (01) ==
LOC: RT 12:57
PROVIDERS: PCP Family Medicine; Visit Provider Nurse Practitioner Family
DX: F17.210 Nicotine dependence, cigarettes, uncomplicated; Z12.2 Encounter for screening for malignant neoplasm of respiratory organs; R06.09 Other forms of dyspnea
CPT/HCPCS: 71271; 94010; 94060; 94618; 94640; 94726; 94727; 94729